=== PATIENT | male | born 1940 | race Caucasian/White ===

== ENCOUNTER 2017-10-13 17:54 | Observation (INO) | payer OTHER ==
--- OUTSIDE RECORDS SUMMARY | 2017-10-13 17:55 | XMS REPORT | Clinical Summary ---
:1940 Author Organization [facility] Address [address] [place] [id number] Care Team Providers Name Role Phone Kevin Jones MD Primary Care Provider Allergies Not on File Current Medications Not on file Active Problems Not on file Social History Tobacco Use Types Packs/Day Years Used Date Never Assessed Sex Assigned at Date Recorded Not on file Last Filed Vital Signs Not on file Plan of Treatment Health Maintenance Due Date Last Done Comments SHINGRIX VACCINE (#1) 1990 ZOSTER VACCINE 2000 PNEUMOCOCCAL POLYSACCHARIDE VACCINE AGE 65 AND OVER 2005 PNEUMOCOCCAL-13 2005 INFLUENZA VACCINE 10/08/2017 Results Not on fileafter 10/12/2016 Insurance Payer Benefit Plan / Group Subscriber ID Type Phone Address AETNA MEDICARE AETNA MEDICARE HMO/PP[facility] xxxxxxxx HMO [phone] [place] [id number]
--- NOTE | 2017-10-13 19:12 | RAD REPORT ---
EXAM DESCRIPTION: RAD - Hip Left 2 View - 10/13/2017 6:52 pm CLINICAL HISTORY: Acute onset left hip pain COMPARISON: Left hip November 2009 FINDINGS: AP and cross-table lateral views were obtained. A bipolar prosthesis is in place. No fracture of the proximal femur or left hemipelvis. There are deg enerative changes partially imaged involving the lumbar spine, SI joints and the pubic symphysis. No dislocation. Subsidence of the femoral component is not suspected. No radiographic evidence for loose thelma. No acute or destructive bony process seen. No soft tissue abnormality. IMPRESSION: Left bipolar prosthesis in place. No acute implant finding seen. [place] femur and left hemipelvis show no acute findings.
[2017-10-13] MEDS ORDERED: HYDROCODONE/APAP 5/325 MG TAB ONE (19:45)
[2017-10-13 20:55] LABS: Hematocrit 35.6 % (39.6-49.0); MCH 30.9 pg (27.0-35.0); MPV 8.7 fL (7.6-11.3); RBC Red Blood Cell Count 3.92 M/uL (4.33-5.43)
--- NOTE | 2017-10-13 21:07 | ER ---
Nurse's Notes [facility] Name: Franklin Castro Age: 77 yrs Sex: Male : 1940 Arrival Date: 10/13/2017 Time: 17:55 Bed 5 Private MD: Diagnosis: Other acute postprocedural pain Presentation: 10/13 17:55 Presenting complaint: Patient states: L hip pain that began suddenly today at 1400. Pt ss reports he had a L hip replacement by Dr. Montes at [facility] on October 01 and has been doing well. Pt had a follow up appointment today with Simon that went well. Transition of care: patient was not received from another setting of care. Onset of symptoms was October 13, 2017. Risk Assessment: Do you want to hurt yourself or someone else? Patient reports no desire to harm self or others. Initial Sepsis Screen: Does the patient meet any 2 criteria? No. Patient's initial sepsis screen is negative. Does the patient have a suspected source of infection? No. Patient's initial sepsis screen is negative. Care prior to arrival: None. 17:55 Method Of Arrival: Wheelchair ss 17:55 Acuity: JIMY 3 ss Historical: - Allergies: 18:07 No Known Allergies; ss - Home Meds: 22:07 aspirin 81 mg Oral TbEC 1 tab once daily [Active]; donepezil 10 mg oral tab 1 tab once ak1 daily [Active]; duloxetine oral 200mg oral 1 cap once daily [Active]; levothyroxine 125 mcg tab 1 tab once daily [Active]; metformin 500 mg Oral Tb24 1 tab once daily [Active]; Xarelto 10 mg oral tab 1 tab once daily [Active]; metoprolol tartrate 50 mg Oral tab 1 tab 2 times per day [Active]; amlodipine-beyslate 5mg 1 tab twice a day [Active]; Tylenol #3 Oral every 4 hours for Pain [Active]; - PMHx: 19:19 Diabetes - NIDDM; Hypothyroidism; Dementia; Hypertension; sg 22:07 throat cancer; ak1 - PSHx: 22:07 Hernia repair; Tonsillectomy; left hip replacement; Vasectomy; ak1 - Immunization history:: Adult Immunizations up to date. - Social history:: Smoking status: Patient/guardian denies using tobacco. - Ebola Screening: : Patient denies exposure to infectious person Patient denies travel to an Ebola-affected area in the 21 days before illness onset. Screenin:30 Abuse screen: Denies threats or abuse. Denies injuries from another. Nutritional hb screening: No deficits noted. Tuberculosis screening: No symptoms or risk factors identified. Fall Risk None identified. Assessment: 18:30 General: Appears in no apparent distress. Behavior is calm. Pain: Pain currently is 6 hb out of 10 on a pain scale. Neuro: Level of Consciousness is awake, alert, obeys commands, Oriented to person, place, time, situation. Cardiovascular: Capillary refill < 3 seconds Patient's skin is warm and dry. Respiratory: Airway is patent Trachea midline Respiratory effort is even, unlabored, Respiratory pattern is regular, symmetrical, Breath sounds are clear bilaterally. GI: No signs and/or symptoms were reported involving the gastrointestinal system. : No signs and/or symptoms were reported regarding the genitourinary system. EENT: No signs and/or symptoms were reported regarding the EENT system. Derm: No signs and/or symptoms reported regarding the dermatologic system. Skin is intact, is healthy with good turgor. Musculoskeletal: Reports pain in left hip. 19:42 Reassessment: Patient appears in no apparent distress at this time. pt able to stand ak1 and bear weight, take 2 to 3 steps assisted due to no walker to use to ambulate. pt c/o of pain 4 out of 10. ERP notifed. 21:38 Reassessment: Patient and/or family updated on plan of care and expected duration. Pain ak1 level reassessed. Patient is alert, oriented x 3, equal unlabored respirations, skin warm/dry/pink. pt continues to c/o left hip pain. pt and family informed of admission status. . 22:01 Reassessment: ERP notified and agreed pt could take his home night time medications. pt ak1 took Donepezil 10mg, Metoprolol Tardate 50mg and Amlodipine Beyslate 5mg at 2200.. Vital Signs: 18:01 BP 153 / 71; Pulse 83; Resp 16; Pulse Ox 97% on R/A; hb 18:07 Temp 98.4(O); Weight 99.79 kg; Height 5 ft. 9 in. (175.26 cm); Pain 4/10; ss 19:00 BP 126 / 69; Pulse 78; Resp 16; Pulse Ox 100% on R/A; hb 20:48 BP 143 / 71; Pulse 78; Resp 12; Pulse Ox 97% ; ao 21:39 BP 142 / 72; Pulse 75; Resp 16; Temp 98.4; Pulse Ox 97% on R/A; Pain 3/10; ak1 18:07 Body Mass Index 32.49 (99.79 kg, 175.26 cm) ED Course: 17:55 Patient arrived in ED. ss 18:05 Triage completed. 18:05 Ricahrd Velasquez MD is Attending Physician. 18:07 Arm band placed on right wrist. ss 18:50 Hip Left 2 View XRAY In Process Unspecified. EDMS 19:05 Patient has correct armband on for positive identification. Bed in low position. Call hb light in reach. Side rails up X 1. 19:32 Kiara Hahn, RN is Primary Nurse. ak1 19:43 No provider procedures requiring assistance completed. Patient admitted, IV remains in ak1 place. 20:43 Inserted saline lock: 22 gauge in left forearm, using aseptic technique. Blood ao collected. 20:46 CT Pelvis wo Cont In Process Unspecified. EDMS 21:01 Zuly Jones MD is Hospitalizing Provider. Administered Medications: 19:41 Drug: [place] 5 mg-325 mg 1 tabs Route: PO; ak1 20:32 Follow up: Response: No adverse reaction ak1 21:00 Follow up: Response: No adverse reaction; Pain is decreased ak1 Outcome: 21:07 Decision to Hospitalize by Provider. 21:44 Condition: stable ak1 21:44 Instructed on the need for admit. 22:15 Admitted to Med/surg accompanied by tech, via stretcher, room 214, with chart, Report ak1 called to nurse Lizette for 214 22:34 Patient left the ED. ak1 Signatures: Dispatcher [employer] EDKS Behzad Martines, RN MORRIS Aleisha Rodriguez RN RN Kiara Hahn, RN MORRIS ak Asim Mcconnell RN RN ao Baxter, Heather, RN RN Richard Velasquez MD MD Corrections: (The following items were deleted from the chart) 21:41 19:43 Patient did not have IV access during this emergency room visit. ak1 ak1
--- NOTE | 2017-10-13 21:07 | EDPHYS ---
Physician Documentation [facility] Name: Franklin Castro Age: 77 yrs Sex: Male : 1940 Arrival Date: 10/13/2017 Time: 17:55 Bed 5 Private MD: ED Physician Richard Velasquez HPI: 10/13 21:16 This 77 yrs old Male presents to ER via Wheelchair with complaints of Hip gs Pain. 21:16 The patient or guardian reports pain. had just left post op visit at [facility], got into his car had sudden pain in left hip. Onset: The symptoms/episode began/occurred acutely, just prior to arrival. Modifying factors: the symptoms are aggravated by any movement. Associated signs and symptoms: Pertinent negatives: abdominal pain, incontinence, weakness. Severity of symptoms: At their worst the symptoms were severe, in the emergency department the symptoms are unchanged. The patient has experienced similar episodes in the past, a few times. Historical: - Allergies: 18:07 No Known Allergies; ss - Home Meds: 22:07 aspirin 81 mg Oral TbEC 1 tab once daily [Active]; donepezil 10 mg oral tab 1 tab once ak1 daily [Active]; duloxetine oral 200mg oral 1 cap once daily [Active]; levothyroxine 125 mcg tab 1 tab once daily [Active]; metformin 500 mg Oral Tb24 1 tab once daily [Active]; Xarelto 10 mg oral tab 1 tab once daily [Active]; metoprolol tartrate 50 mg Oral tab 1 tab 2 times per day [Active]; amlodipine-beyslate 5mg 1 tab twice a day [Active]; Tylenol #3 Oral every 4 hours for Pain [Active]; - PMHx: 19:19 Diabetes - NIDDM; Hypothyroidism; Dementia; Hypertension; sg 22:07 throat cancer; ak1 - PSHx: 22:07 Hernia repair; Tonsillectomy; left hip replacement; Vasectomy; ak1 - Immunization history:: Adult Immunizations up to date. - Social history:: Smoking status: Patient/guardian denies using tobacco. - Ebola Screening: : Patient denies exposure to infectious person Patient denies travel to an Ebola-affected area in the 21 days before illness onset. ROS: 21:16 All other systems are negative. gs Exam: 21:16 Cardiovascular: Regular rate and rhythm with a normal S1 and S2. No gallops, murmurs, gs or rubs. Normal PMI, no JVD. No pulse deficits. Respiratory: Lungs have equal breath sounds bilaterally, clear to auscultation and percussion. No rales, rhonchi or wheezes noted. No increased work of breathing, no retractions or nasal flaring. Abdomen/GI: Soft, non-tender, with normal bowel sounds. No distension or tympany. No guarding or rebound. No evidence of tenderness throughout. Back: No spinal tenderness. No costovertebral tenderness. Full range of motion. Neuro: Awake and alert, GCS 15, oriented to person, place, time, and situation. Cranial nerves II-XII grossly intact. Motor strength 5/5 in all extremities. Sensory grossly intact. Cerebellar exam normal. Normal gait. 21:16 Constitutional: The patient appears alert, awake. 21:16 Musculoskeletal/extremity: Extremities: noted in the left hip: ecchymosis, tenderness, Joints: the left hip displays painful range of motion, tenderness. Vital Signs: 18:01 BP 153 / 71; Pulse 83; Resp 16; Pulse Ox 97% on R/A; hb 18:07 Temp 98.4(O); Weight 99.79 kg; Height 5 ft. 9 in. (175.26 cm); Pain 4/10; ss 19:00 BP 126 / 69; Pulse 78; Resp 16; Pulse Ox 100% on R/A; hb 20:48 BP 143 / 71; Pulse 78; Resp 12; Pulse Ox 97% ; ao 21:39 BP 142 / 72; Pulse 75; Resp 16; Temp 98.4; Pulse Ox 97% on R/A; Pain 3/10; ak1 18:07 Body Mass Index 32.49 (99.79 kg, 175.26 cm) ss MDM: 18:33 Patient medically screened. gs 21:16 Differential diagnosis: hip fracture, pelvic fx, dislocation, hematoma sprain. Data reviewed: vital signs, nurses notes. Response to treatment: the patient's symptoms have mildly improved after treatment, and as a result, I will admit patient. Physician consultation: Behzad Montes MD would like admission per Dr. Zuly Jones MD. 10/13 20:28 Order name: CBC w/o diff; Complete Time: 21:00 10/13 21:33 Order name: CBC with Automated Diff EDMS 10/13 18:34 Order name: Hip Left 2 View XRAY; Complete Time: 19:19 10/13 20:28 Order name: CT Pelvis wo Cont; Complete Time: 21:22 10/13 21:33 Order name: CBC with Automated Diff EDMS 10/13 21:33 Order name: CONS Physician Consult EDMS 10/13 21:33 Order name: Clear Liquid EDMS Administered Medications: 19:41 Drug: [place] 5 mg-325 mg 1 tabs Route: PO; ak1 20:32 Follow up: Response: No adverse reaction ak1 21:00 Follow up: Response: No adverse reaction; Pain is decreased ak1 Disposition: 10/13/17 21:07 Hospitalization ordered by Zuly Jones for Observation. Preliminary diagnosis is Other acute postprocedural pain. - Bed requested for Telemetry/MedSurg (observation). - Status is Observation. ak1 - Condition is Stable. - Problem is new. - Symptoms have improved. UTI on Admission? No Signatures: Dispatcher [employer] EDOK Behzad Martines RN RN Aleisha Rodriguez RN RN ss Krenek, Amber, RN RN ak1 Richard Velasquez MD MD Shmuel Felipe mw2 Corrections: (The following items were deleted from the chart) 21:57 21:07 Hospitalization Ordered by A Karen QUEEN for Observation. Preliminary diagnosis is mw2 Other acute postprocedural pain. Bed requested for Telemetry/MedSurg (observation). Status is Observation. Condition is Stable. Problem is new. Symptoms have improved. UTI on Admission? No. gs 22:34 21:57 10/13/2017 21:07 Hospitalization Ordered by A Karen QUEEN for Observation. ak1 Preliminary diagnosis is Other acute postprocedural pain. Bed requested for Telemetry/MedSurg (observation). Status is Observation. Condition is Stable. Problem is new. Symptoms have improved. UTI on Admission? No. mw2
--- NOTE | 2017-10-13 21:19 | RAD REPORT ---
EXAM DESCRIPTION: CT - Pelvis Wo Cont - 10/13/2017 8:46 pm CLINICAL HISTORY: Acute onset left hip pain COMPARISON: Left hip films same date TECHNIQUE: Axial 2 millimeter thick images of the pelvis were obtained. Sagittal and coronal reforma tted images were generated and reviewed. FINDINGS: Left bipolar prosthesis is in place. There is no dislocation of the femoral component. No subsidence of the femoral component. Loosening is not suspected. There are numerous subcortical degen erative cystic changes seen along the superior and medial aspect of the acetabulum. No fracture of th e pelvis. No pathologic bone process. Proximal left femur is intact. Patient has significant lower lumbar degenerative change primarily in the facet joints. No pathologic bone process. Approximately 8 centimeter soft tissue mass is present isodense to the skeletal musculature. This is along the posterior margin of the proximal femur. There is contusion and edema change in the lateral subcutaneous fatty tissues including a focal centimeter mass of similar density to the larger mass. T here is some congestion and edema of the gluteus musculature. No air or foreign body. Moderate-size right inguinal hernia. IMPRESSION: Large 8 centimeter diameter hematoma posterior to the left femur. There is additional co ntusion and edema change in the subcutaneous fatty tissues posterior and lateral to the hip joint and proximal femur. No dislocation of the femoral component. No fracture or acute bone process of the pelvis or proximal femur. Prominent underlying degenerative change at both hip joints.
[2017-10-13] MEDS ORDERED: HYDROCODONE/APAP 5/325 MG TAB PO PRN (21:31)
[2017-10-13] MEDS ORDERED: ACETAMINOPHEN 500 MG TAB PO PRN (21:31)
[2017-10-13] MEDS: NA CHLORIDE 0.9% 1,000 ML IV SCH (22:52)
[2017-10-14 00:23] VITALS: BMI 32.6
[2017-10-14 04:52] LABS: Urine Appearance CLEAR; Urine Bilirubin NEGATIVE (NEG); Urine Blood NEGATIVE (NEG); Urine Color YELLOW; Urine Glucose NEGATIVE (NEG); Urine Protein NEGATIVE (NEG)
[2017-10-14 04:52] LABS: Absolute Lymphocytes (CBC) 1.7 K/uL (0.7-4.9); Absolute Monocytes 0.7 K/uL (0.1-1.3); Absolute Neutrophil 6.7 K/uL (1.8-8.0); Basophils % 1.5 % (0-1.3); Eosinophils % 2.8 % (0-4.4); Lymphocytes % 17.8 % (15.3-44.8); MCH 31.7 pg (27.0-35.0); MCV 91.4 fL (80-100); MPV 9.4 fL (7.6-11.3); Monocytes % 7.7 % (3.3-12.3); RBC Red Blood Cell Count 3.61 M/uL (4.33-5.43)
[2017-10-14 05:41] LABS: Urine Microscopic Reflex NO UMIC
[2017-10-14 07:08] LABS: ALT/SGPT 17 U/L (12-78); AST/SGOT 17 U/L (15-37); Albumin 2.5 g/dL (3.4-5.0); Alkaline Phosphatase 91 U/L (45-117); BUN Blood Urea Nitrogen 10 mg/dL (7-18); Bicarbonate 30 mmol/L (21-32); Bilirubin Total 0.6 mg/dL (0.2-1.0); Glucose Level 110 mg/dL (74-106); Magnesium 2.1 mg/dL (1.8-2.4); Potassium 4.1 mmol/L (3.5-5.1); Protein, Total 6.3 g/dL (6.4-8.2); Sodium Level 139 mmol/L (136-145)
[2017-10-14] MEDS: NA CHLORIDE 0.9% 1,000 ML IV SCH ×2 (08:53→18:00)
[2017-10-14] MEDS ORDERED: AMLODIPINE BESYLATE 5 MG PO SCH (09:00)
[2017-10-14] MEDS ORDERED: DULOXETINE HCL 20 MG PO SCH (09:00)
[2017-10-14] MEDS ORDERED: LEVOTHYROXINE 125 MCG PO SCH (09:00)
[2017-10-14] MEDS ORDERED: HOME MED 1 EA UNK (Metoprolol Tartrate [Lopressor*] 50 MG) PO SCH (09:00)
[2017-10-14] MEDS ORDERED: DONEPEZIL 10 MG PO SCH (09:00)
[2017-10-14 17:00] VITALS: BP 127/58; TEMP 99.1
[2017-10-14 18:03] VITALS: O2SAT 93
--- NOTE | 2017-10-15 02:01 | HP ---
Date of Admission: 10/13/2017 Chief Complaint: Left hip pain. History Of Present Illness: This is a 77-year-old male patient came into emergency room yesterday tara escudero with complaints of left hip pain. He had left hip replacement surgery done by Dr. Simon rangel out 2 weeks ago, and after surgery, he was started on DVT prophylaxis with Xarelto. He has been taki ng all of his medications regularly and yesterday he had appointment to follow up with Dr. Montes at his office and he did not have any complaints. He finished his appointment, and as he was getting in the car, he tried to sit down and at that time, he started to have some pain in his left thigh. Once he sat down in the car, he felt better, went home, and as he was trying to get out of the car an d ambulate, his pain was lot worse, so later on he came into emergency room. After he was evaluated in the ER, ER physician contacted me, informed me, requesting admission to the hospital because the p atient was having intense pain and had trouble ambulating. There was no fall and no injury. X-ray o f the left hip was negative for any acute changes. No fracture, no dislocation. CAT scan of the hip had shown some hematoma around the left hip area. Overnight, the patient's condition has remained s table. This morning when I saw him, his was present with him at bedside. Denies any fever or c hills. Allergies: NO KNOWN ALLERGIES. Medications: List reviewed. Review of Systems: Musculoskeletal: As mentioned above all other systems reviewed and negative. Social History: Negative for smoking or alcohol use. Family History: Not pertinent. Past Surgical History: Left hip replacement surgery done about 2 weeks ago. Past Medical History: Significant for osteoarthritis, Alzheimer disease, hypertension, hyperlipidemi a, hypothyroidism. Physical Examination: Vital Signs: Temperature 98.1, pulse 68, respiratory rate 18, blood pressure 139/57, oxygen saturati on 94%. Height 5 feet 9 inches, weight 221 pounds. General: Awake, alert, oriented, not in distress. HEENT: Head atraumatic, normocephalic. Conjunctivae nonerythematous. Sclerae white. Mouth, no thr ush or edema noted. Ears/Nose, no mass, lesion, discharge noted. Neck: Supple. No JVD, lymph nodes, bruit, thyromegaly noted. Lungs: Bilateral good equal air entry. Clear to auscultation. No rhonchi. No rales. Heart: Normal heart sounds, no murmur or gallop. Abdomen: Soft, bowel sounds normal. No guarding, rigidity, tenderness, mass, hepatosplenomegaly, dis tention, or bruit noted. Extremities: Left lateral thigh has a surgical scar. Some soft tissue swelling of the left lateral thigh with bruising of the left lateral thigh area from recent surgery. No evidence of any celluliti s and no evidence of any discharge or bleeding. Skin: No rash, ulcer, cellulitis. Lymphatics: No lymph node enlargement in neck, supraclavicular, infraclavicular region. Neuro: No focal neurological deficit. Chest: Unremarkable. External Genitalia: Deferred. Rectal: Deferred. Laboratory Data: Yesterday white count 11.3, hemoglobin 12.1, platelets 321. Today white count 9.5, hemoglobin 11.5, platelets 352. Sodium 139, potassium 4.1, chloride 105, bicarb 30, BUN 10, creatin ine 0.80, glucose 110. Liver function tests unremarkable. TSH 1.69. Urinalysis negative. Imaging: X-ray of the left hip; no acute changes, no fracture, no dislocation. CAT scan of the left hip and pelvis shows a large 8 cm hematoma posterior to the left femur and there is additional contu graciela and edema change in the subcutaneous fatty tissue posterior and lateral to hip joint and proxima l femur, no dislocation, no fracture. Hospital Course: After I saw him, Dr. Montes from Orthopedic Surgery evaluated the patient and he called and the details were discussed with him. His recommendation is to have the patient ambulate as he tolerates. No reason for any restricted ambulation and he also has recommended for us to stacey nue his Xarelto that he takes for DVT prophylaxis. If the patient's hematoma and bleeding problem ge ts worse, obviously Dr. Montes will have to consider surgical intervention for evacuation of that hematoma as he has informed me, but it is not unusual to expect this kind of hematoma. We do not kno w when this hematoma developed, whether it started yesterday or it was there before and became painfu l yesterday for some reason, but in any case at this point as per his recommendation, we will continu erika Segal. The patient is starting ambulating well with the walker and medically he is stable for elaine sena. Dr. Montes, when I talked to him, he was okay for the patient to go home whenever I was okay, and we will see him for followup next week at my office and the patient to follow up with Dr. Erika mejia per his advice and recommendation. The patient to continue all his prior home medication. Final Diagnoses: 1.Hematoma, left hip/thigh. 2.Hypertension. 3.Hyperlipidemia. 4.Hypothyroidism. 5.Osteoarthritis, multiple sites. 6.Alzheimer disease. NIKI/MODL Voice ID: [id number]
[2017-10-15] MEDS ORDERED: RIVAROXABAN 10 MG TABLET PO SCH (09:00)
--- NOTE | 2017-10-15 09:19 | CON ---
Date of Consultation: 10/14/2017 History Of Present Illness: I have seen this patient in the past, likely yesterday in the clinic. Ye sterday in the clinic, he was doing well and he was able to ambulate with a rolling walker. Complain ts of pain, were essentially minimal. His incision was clean, dry, and intact. Fay were removed . He was placed in Steri-Strips. The patient states that as he was getting into the car, he placed his affected leg in the car without difficulty; however, as he was raising his right lower extremity, he felt some pain in the left side. He says that the pain was quite significant when it occurred, b ut it did pass more or less until he returned to his home. When he returned to his home and got out, he had some pain and went into his home, started developing greater and greater amounts of pain. He therefore went to the Emergency Department where CBC was done, which demonstrates a hemoglobin of 12 .1, hematocrit of 35.6, white blood cell count of 11.3. X-rays were taken of his hip, which demonstr ated what appeared to be a well-fixed, well-positioned hemiarthroplasty. CT scan was done, which als o demonstrates a well-fixed, well-positioned hemiarthroplasty, also with a small hematoma along the p osterior aspect of his femur. Physical Examination: His incision still is clean, dry, and intact. He does have some bruising. There is some fullness, w hich we would expect 2 weeks after surgery. Gentle motion of his hip does not cause pain. He has no t yet been up today. Assessment: In assessment, he is a 77-year-old male who is 2 weeks status post total hip arthroplast y, was doing quite well; however, when he was trying to get into the car, he sustained an injury to h is hip. Radiographically, the hip appears to be normal. This is most likely related to soft tissue injury or perhaps could be related to his spine; however, today he is doing much better. We will see how he does with physical therapy. I think he can be weightbearing as tolerated. Discha rge would be dependent on functional level. /ALFRED Voice ID: [id number] Report ID: [id number]
== END 2017-10-14 19:03 | disposition home or self-care (01) ==
LOC: ER 17:54 → ERHOLD 21:30 → 2ND 22:15
PROVIDERS: ADMIT Internal Medicine; ATTEND Internal Medicine
DX: T84.89XA Other specified complication of internal orthopedic prosthetic devices, implants and grafts, initial encounter (principal); G30.9 Alzheimer's disease, unspecified; F02.80 Dementia in other diseases classified elsewhere, unspecified severity, without behavioral disturbance, psychotic disturbance, mood disturbance, and anxiety; E11.9 Type 2 diabetes mellitus without complications; I10 Essential (primary) hypertension; E78.5 Hyperlipidemia, unspecified; E03.9 Hypothyroidism, unspecified; Y83.1 Surgical operation with implant of artificial internal device as the cause of abnormal reaction of the patient, or of later complication, without mention of misadventure at the time of the procedure; Y92.009 Unspecified place in unspecified non-institutional (private) residence as the place of occurrence of the external cause; M15.9 Polyosteoarthritis, unspecified; Z79.01 Long term (current) use of anticoagulants; Z79.84 Long term (current) use of oral hypoglycemic drugs; Z79.82 Long term (current) use of aspirin
CPT/HCPCS: 36415; 72192; 73502; 80053; 81003; 83735; 84443; 85025; 85027; 99285; J7030 ×2; G0378

== ENCOUNTER 2018-05-25 08:46 | Inpatient (IN) | payer OTHER ==
--- OUTSIDE RECORDS SUMMARY | 2018-05-25 08:48 | XMS REPORT | Clinical Summary ---
:1940 Author Organization [facility] Address [address] [place] [address] Care Team Providers Name Role Phone Kevin Jones MD Primary Care Provider Allergies Not on File Medications Not on file Active Problems Not on file Social History Tobacco Use Types Packs/Day Years Used Date Never Assessed Sex Assigned at Date Recorded Not on file Job Start Date Occupation Industry Not on file Not on file Not on file Travel History Travel Start Travel End No recent travel history available. Last Filed Vital Signs Not on file Plan of Treatment Health Maintenance Due Date Last Done Comments SHINGLES VACCINES (#1) 1990 65+ PNEUMOCOCCAL VACCINE (1 of 2 - PCV13) 2005 PNEUMOCOCCAL POLYSACCHARIDE VACCINE AGE 65 AND OVER 2005 INFLUENZA VACCINE 10/08/2017 Results Not on fileafter 05/24/2017 Insurance Payer Benefit Plan / Group Subscriber ID Type Phone Address AETNA MEDICARE AETNA MEDICARE HMO/PPO [facility] xxxxxxxx HMO [address] (Home) [place] [id number] Advance Directives Patient has advance care planning documents on file. For more information, please contact:[facility] [place] [address]
[2018-05-25 09:36] LABS: Absolute Lymphocytes (CBC) 1.9 K/uL (0.7-4.9); Absolute Monocytes 0.7 K/uL (0.1-1.3); Absolute Neutrophil 8.1 K/uL (1.8-8.0); Basophils % 0.1 % (0-1.3); Eosinophils % 2.4 % (0-4.4); Lymphocytes % 16.9 % (15.3-44.8); MPV 9.2 fL (7.6-11.3); Monocytes % 6.8 % (3.3-12.3); RBC Red Blood Cell Count 5.23 M/uL (4.33-5.43)
--- NOTE | 2018-05-25 09:46 | RAD REPORT ---
EXAM DESCRIPTION: Gwen Single View05/25/2018 9:31 am CLINICAL HISTORY: Chest pain COMPARISON: none FINDINGS: The lungs appear clear of acute infiltrate. The heart is borderline enlarged IMPRESSION: No acute abnormalities displayed
[2018-05-25 09:50] LABS: Protime INR 1.11
[2018-05-25 10:02] LABS: ALT/SGPT 22 U/L (12-78); AST/SGOT 17 U/L (15-37); Albumin 3.6 g/dL (3.4-5.0); Alkaline Phosphatase 138 U/L (45-117); BUN Blood Urea Nitrogen 18 mg/dL (7-18); Bicarbonate 26 mmol/L (21-32); Bilirubin Direct 0.1 mg/dL (0-0.2); Bilirubin Total 0.8 mg/dL (0.2-1.0); Glucose Level 143 mg/dL (74-106); NT PRO-BNP 5185 pg/mL (<450); Potassium 4.1 mmol/L (3.5-5.1); Protein, Total 8.4 g/dL (6.4-8.2); Sodium Level 137 mmol/L (136-145); Troponin (Emerg Dept Use Only) < 0.02 ng/mL (0.0-0.045)
[2018-05-25] MEDS ORDERED: NA CHLORIDE 0.9% 500 ML ONE (10:07)
[2018-05-25 10:08] LABS: Thyroid Stimulating Hormone 4.38 uIU/mL (0.360-3.740)
--- NOTE | 2018-05-25 10:20 | ER ---
Nurse's Notes [facility] Name: Franklin Castro Age: 78 yrs Sex: Male : 1940 Arrival Date: 05/25/2018 Time: 08:47 Bed 2 Private MD: Zuly Jones C Diagnosis: Atrial fibrillation and flutter-with RVR Presentation: 05/25 08:58 Presenting complaint: Patient states: "I feel like my heart is skipping beats and like hb I am going to pass out." Also reports chest pain that radiated to back last night while lying in bed. Denies pain/SOB at this time. HR 68-140 in triage. Transition of care: patient was not received from another setting of care. Onset of symptoms was May 24, 2018. Risk Assessment: Do you want to hurt yourself or someone else? Patient reports no desire to harm self or others. Care prior to arrival: None. 08:58 Method Of Arrival: Wheelchair hb 08:58 Acuity: JIMY 2 hb 09:00 Initial Sepsis Screen: Does the patient meet any 2 criteria? HR > 90 bpm. No. Patient's bp initial sepsis screen is negative. Does the patient have a suspected source of infection? No. Patient's initial sepsis screen is negative. Historical: - Allergies: 09:02 No Known Allergies; hb - Home Meds: 09:02 amlodipine-beyslate 5mg 1 tab twice a day [Active]; donepezil 10 mg Oral tab 1 tab once hb daily [Active]; aspirin 81 mg Oral TbEC 1 tab once daily [Active]; duloxetine 200mg Oral 1 cap once daily [Active]; levothyroxine 125 mcg tab 1 tab once daily [Active]; metformin 500 mg Oral Tb24 1 tab once daily [Active]; metoprolol tartrate 50 mg Oral tab 1 tab 2 times per day [Active]; - PMHx: 09:02 Dementia; Diabetes - NIDDM; Hypertension; Hypothyroidism; throat cancer; hb - PSHx: 09:02 Hernia repair; Tonsillectomy; left hip replacement; Vasectomy; hb - Immunization history:: Adult Immunizations up to date. - Social history:: Smoking status: Patient/guardian denies using tobacco. - Ebola Screening: : No symptoms or risks identified at this time. Screenin:22 Abuse screen: Denies threats or abuse. Denies injuries from another. Nutritional bp screening: No deficits noted. Tuberculosis screening: No symptoms or risk factors identified. Fall Risk None identified. Assessment: 09:00 General: Appears in no apparent distress. comfortable, Behavior is calm, cooperative, bp appropriate for age. Pain: Denies pain. Neuro: Level of Consciousness is awake, alert, obeys commands, Oriented to person, place, time, situation, Appropriate for age. Cardiovascular: Rhythm is atrial fibrillation with rapid ventricular response. Respiratory: Airway is patent Respiratory effort is even, unlabored, Respiratory pattern is regular, symmetrical. GI: No signs and/or symptoms were reported involving the gastrointestinal system. : No signs and/or symptoms were reported regarding the genitourinary system. EENT: No deficits noted. Derm: No deficits noted. Musculoskeletal: Circulation, motion, and sensation intact. Range of motion: intact in all extremities. 11:00 Reassessment: PT REMAINS IN AFIB, INTERMITTENT RVR. ADMIT IN PROCESS. bp 13:00 Reassessment: FAMILY AT B/S, ADMIT IN PROCESS, BED ASSIGNMENT PENDING. Reassessment:. bp Vital Signs: 08:59 BP 99 / 69; Pulse 106; Resp 16; Temp 98.2(TE); Pulse Ox 96% on R/A; Weight 99.79 kg; bp Pain 0/10; 09:27 BP 108 / 71; Pulse 107; Resp 20; Pulse Ox 96% ; bp 11:30 BP 108 / 73; Pulse 109; Resp 16; Pulse Ox 93% on R/A; bp 13:30 BP 98 / 64; Pulse 108; Resp 24; Pulse Ox 93% ; bp 15:30 BP 107 / 71; Pulse 99; Resp 14; Pulse Ox 93% ; bp ED Course: 08:47 Patient arrived in ED. as 08:47 Zuly Jones MD is Private Physician. as 08:59 Triage completed. hb 09:02 Cody Sanchez, MORRIS is Primary Nurse. bp 09:02 Arm band placed on. hb 09:05 Josue Reza PA is PHCP. jr8 09:05 Gonzales Brian MD is Attending Physician. jr8 09:15 Inserted saline lock: 20 gauge in left hand, using aseptic technique. Blood collected. bp 09:22 Patient has correct armband on for positive identification. Placed in gown. Bed in low bp position. Call light in reach. Side rails up X2. Adult w/ patient. 09:31 XRAY Chest (1 view) In Process Unspecified. EDMS 09:56 EKG done, by pharmacy technician assistant. reviewed by Gonzales Brina MD. dt2 10:19 Zuly Jones MD is Hospitalizing Provider. jr8 15:38 No provider procedures requiring assistance completed. Patient admitted, IV remains in bp place. Administered Medications: 10:00 Drug: NS 0.9% 500 ml Route: IV; Rate: bolus; Site: left hand; bp 10:40 Follow up: IV Status: Completed infusion; IV Intake: 500ml bp 10:20 Drug: Lovenox 1 mg/kg Route: Sub-Q; Site: right lower abdomen; bp 16:05 Follow up: Response: No adverse reaction bp Intake: 10:40 IV: 500ml; Total: 500ml. bp Outcome: 10:19 Decision to Hospitalize by Provider. jr8 16:23 Patient left the ED. bp Signatures: Dispatcher [employer] EDMS Lulu Gibbons Josh, PA PA jr8 Shira Locke, RN RN hb Cody Sanchez, RN RN bp Marija Flores dt2 Corrections: (The following items were deleted from the chart) 09:00 08:58 Presenting complaint: Patient states: "I feel like my heart is skipping beats and hb like I am going to pass out." hb 09:00 08:58 Acuity: JIMY 3 hb hb 09:31 09:27 BP 190 / 81; Pulse 65bpm; Resp 14bpm; Pulse Ox 99%; bp bp 10:20 08:59 BP 99 / 69; Pulse 106bpm; Resp 16bpm; Pulse Ox 96% RA; Temp 98.2F Temporal; Pain bp 0/10; hb
--- NOTE | 2018-05-25 10:20 | EDPHYS ---
Physician Documentation [facility] Name: Franklin Castro Age: 78 yrs Sex: Male : 1940 Arrival Date: 05/25/2018 Time: 08:47 Bed 2 Private MD: Zuly Jones C ED Physician Gonzales Brian HPI: 05/25 09:36 This 78 yrs old Male presents to ER via Wheelchair with complaints of jr8 Palpitations. 09:36 The patient presents with a history of irregular heart beat, heart racing. Context: The jr8 symptoms occur at rest. Onset: The symptoms/episode began/occurred acutely, 3 day(s) ago. Duration: The patient or guardian reports multiple episodes. Modifying factors: The symptoms are aggravated by light activity, lying down. Associated signs and symptoms: Pertinent positives: SOB. Severity of symptoms: At their worst the symptoms were moderate in the emergency department the symptoms are unchanged. The patient has experienced a previous episode. The patient has not recently seen a physician. History of atrial fib several years ago. Was taken out of it by cardioversion. Stated that on Friday started to feel palpitations, SOB, FOY, and orthopnea. Symptoms getting worse and feel like what he had in past . Historical: - Allergies: 09:02 No Known Allergies; hb - Home Meds: 09:02 amlodipine-beyslate 5mg 1 tab twice a day [Active]; donepezil 10 mg Oral tab 1 tab once hb daily [Active]; aspirin 81 mg Oral TbEC 1 tab once daily [Active]; duloxetine 200mg Oral 1 cap once daily [Active]; levothyroxine 125 mcg tab 1 tab once daily [Active]; metformin 500 mg Oral Tb24 1 tab once daily [Active]; metoprolol tartrate 50 mg Oral tab 1 tab 2 times per day [Active]; - PMHx: 09:02 Dementia; Diabetes - NIDDM; Hypertension; Hypothyroidism; throat cancer; hb - PSHx: 09:02 Hernia repair; Tonsillectomy; left hip replacement; Vasectomy; hb - Immunization history:: Adult Immunizations up to date. - Social history:: Smoking status: Patient/guardian denies using tobacco. - Ebola Screening: : No symptoms or risks identified at this time. ROS: 09:36 Eyes: Negative for injury, pain, redness, and discharge, ENT: Negative for injury, jr8 pain, and discharge, Neck: Negative for injury, pain, and swelling, Abdomen/GI: Negative for abdominal pain, nausea, vomiting, diarrhea, and constipation, Back: Negative for injury and pain, MS/Extremity: Negative for injury and deformity, Skin: Negative for injury, rash, and discoloration, Neuro: Negative for headache, weakness, numbness, tingling, and seizure. 09:36 Cardiovascular: Positive for orthopnea, palpitations, Negative for chest pain, edema. 09:36 Respiratory: Positive for dyspnea on exertion, orthopnea, shortness of breath. Exam: 09:36 Eyes: Pupils equal round and reactive to light, extra-ocular motions intact. Lids and jr8 lashes normal. Conjunctiva and sclera are non-icteric and not injected. Cornea within normal limits. Periorbital areas with no swelling, redness, or edema. ENT: Nares patent. No nasal discharge, no septal abnormalities noted. Tympanic membranes are normal and external auditory canals are clear. Oropharynx with no redness, swelling, or masses, exudates, or evidence of obstruction, uvula midline. Mucous membranes moist. Neck: Trachea midline, no thyromegaly or masses palpated, and no cervical lymphadenopathy. Supple, full range of motion without nuchal rigidity, or vertebral point tenderness. No Meningismus. Respiratory: Lungs have equal breath sounds bilaterally, clear to auscultation and percussion. No rales, rhonchi or wheezes noted. No increased work of breathing, no retractions or nasal flaring. Abdomen/GI: Soft, non-tender, with normal bowel sounds. No distension or tympany. No guarding or rebound. No evidence of tenderness throughout. Back: No spinal tenderness. No costovertebral tenderness. Full range of motion. Skin: Warm, dry with normal turgor. Normal color with no rashes, no lesions, and no evidence of cellulitis. MS/ Extremity: Pulses equal, no cyanosis. Neurovascular intact. Full, normal range of motion. Neuro: Awake and alert, GCS 15, oriented to person, place, time, and situation. Cranial nerves II-XII grossly intact. Motor strength 5/5 in all extremities. Sensory grossly intact. Cerebellar exam normal. Normal gait. 09:36 Cardiovascular: Rate: tachycardic, Rhythm: irregularly irregular, Pulses: Pulses are 2+ in right radial artery and left radial artery. Heart sounds: normal, normal S1and S2, no S3 or S4, no murmur, no rub, no gallop, Edema: is not appreciated, JVD: is not appreciated. Vital Signs: 08:59 BP 99 / 69; Pulse 106; Resp 16; Temp 98.2(TE); Pulse Ox 96% on R/A; Weight 99.79 kg; bp Pain 0/10; 09:27 BP 108 / 71; Pulse 107; Resp 20; Pulse Ox 96% ; bp 11:30 BP 108 / 73; Pulse 109; Resp 16; Pulse Ox 93% on R/A; bp 13:30 BP 98 / 64; Pulse 108; Resp 24; Pulse Ox 93% ; bp 15:30 BP 107 / 71; Pulse 99; Resp 14; Pulse Ox 93% ; bp MDM: 09:13 Patient medically screened. jr8 10:18 Data reviewed: vital signs, nurses notes, lab test result(s), EKG, radiologic studies, jr8 plain films. Data interpreted: Pulse oximetry: on room air is 96 %. Interpretation: normal. Counseling: I had a detailed discussion with the patient and/or guardian regarding: the historical points, exam findings, and any diagnostic results supporting the discharge/admit diagnosis, lab results, radiology results, the need for further work-up and treatment in the hospital. Physician consultation: A Karen QUEEN was called at 10:18, was contacted at 10:18, regarding admission, to the telemetry unit. consult, patient's condition, and will see patient. 10:28 ED course: Spoke with Dr. Rose. Wants patient started on betapace and to hold jr8 metoprolol . 05/25 09:10 Order name: Basic Metabolic Panel bp 05/25 09:10 Order name: CBC with Diff; Complete Time: 10:28 bp 05/25 09:10 Order name: LFT's bp 05/25 09:10 Order name: Magnesium; Complete Time: 10:06 bp 05/25 09:10 Order name: NT PRO-BNP; Complete Time: 10:06 bp 05/25 09:10 Order name: PT-INR; Complete Time: 10:06 bp 05/25 09:10 Order name: Troponin (emerg Dept Use Only); Complete Time: 10:06 bp 05/25 09:10 Order name: XRAY Chest (1 view); Complete Time: 09:53 bp 05/25 09:11 Order name: Basic Metabolic Panel; Complete Time: 10:06 [facility] 05/25 09:11 Order name: Liver (Hepatic) Function; Complete Time: 10:06 [facility] 05/25 09:13 Order name: TSH; Complete Time: 10:13 [facility] 05/25 09:13 Order name: T4 Free; Complete Time: 10:13 [facility] 05/25 09:44 Order name: Manual Differential; Complete Time: 10:28 EDMS 05/25 09:10 Order name: EKG; Complete Time: 09:12 bp 05/25 09:10 Order name: Cardiac monitoring; Complete Time: 09:19 bp 05/25 09:10 Order name: EKG - Nurse/Tech; Complete Time: 09:19 bp 05/25 09:10 Order name: IV Saline Lock; Complete Time: 09:19 bp 05/25 09:10 Order name: Labs collected and sent; Complete Time: 09:19 bp 05/25 09:10 Order name: O2 Per Protocol; Complete Time: 09:20 bp 05/25 09:10 Order name: O2 Sat Monitoring; Complete Time: 09:19 bp 05/25 10:23 Order name: CONS Physician Consult [facility] Administered Medications: 10:00 Drug: NS 0.9% 500 ml Route: IV; Rate: bolus; Site: left hand; bp 10:40 Follow up: IV Status: Completed infusion; IV Intake: 500ml bp 10:20 Drug: Lovenox 1 mg/kg Route: Sub-Q; Site: right lower abdomen; bp 16:05 Follow up: Response: No adverse reaction bp Disposition: 05/26 06:52 Co-signature as Attending Physician, Gonzales Brian MD I agree with the assessment and sylvia plan of care. Disposition: 05/25/18 10:19 Hospitalization ordered by Zuly Jones for Inpatient Admission. Preliminary diagnosis is Atrial fibrillation and flutter - with RVR. - Bed requested for Telemetry/MedSurg (Inpatient). - Status is Inpatient Admission. bp - Condition is Stable. - Problem is new. - Symptoms have improved. UTI on Admission? No Signatures: Dispatcher [facility] Romana Montaño RN RN Gonzaels Garcia MD MD cha Roszak, Josh, PA PA jr8 Shira Locke, MORRIS CACERES hb Cody Sanchez RN RN bp Corrections: (The following items were deleted from the chart) 05/25 15:15 10:19 Hospitalization Ordered by A Karen QUEEN for Inpatient Admission. Preliminary dw diagnosis is Atrial fibrillation and flutter - with RVR. Bed requested for Telemetry/MedSurg (Inpatient). Status is Inpatient Admission. Condition is Stable. Problem is new. Symptoms have improved. UTI on Admission? No. jr8 15:52 15:15 05/25/2018 10:19 Hospitalization Ordered by A Karen QUEEN for Inpatient Admission. dw Preliminary diagnosis is Atrial fibrillation and flutter - with RVR. Bed requested for Telemetry/MedSurg (Inpatient). Status is Inpatient Admission. Condition is Stable. Problem is new. Symptoms have improved. UTI on Admission? No. dw 16:23 15:52 05/25/2018 10:19 Hospitalization Ordered by A Karen QUEEN for Inpatient Admission. bp Preliminary diagnosis is Atrial fibrillation and flutter - with RVR. Bed requested for Telemetry/MedSurg (Inpatient). Status is Inpatient Admission. Condition is Stable. Problem is new. Symptoms have improved. UTI on Admission? No. dw
[2018-05-25 10:24] LABS: Blood Morphology Comment NOT SEEN (NOT SEEN); Platelet Estimate ADEQ
[2018-05-25] MEDS ORDERED: ENOXAPARIN 100 MG/ML SYR SQ ONE (10:48)
--- NOTE | 2018-05-25 12:15 | EKG ---
Test Date: 2018-05-25 Test Time: 09:36:42 Tile Layer Helper: MILAN MEASUREMENT RESULTS: Intervals: Rate: 93 SD: QRSD: 90 QT: 344 QTc: 427 [place]: P: SD: QRS: 38 T: 95 INTERPRETIVE STATEMENTS: Atrial fibrillation Nonspecific T wave abnormality, probably digitalis effect Abnormal ECG Compared to ECG 05/08/2016 08:35:19 T-wave abnormality now present Sinus bradycardia no longer present First degree AV block no longer present Electronically Signed On 05-25-18 12:14:34 CDT by Johnny Rose
[2018-05-25] MEDS ORDERED: ONDANSETRON 4 MG/2 ML VIAL IV PRN (16:41)
[2018-05-25] MEDS ORDERED: ACETAMINOPHEN 500 MG TAB PO PRN (16:41)
[2018-05-25 17:23] VITALS: BMI 32.1
[2018-05-25 17:41] LABS: Urine Appearance CLEAR; Urine Bilirubin NEGATIVE (NEG); Urine Blood NEGATIVE (NEG); Urine Color YELLOW; Urine Glucose NEGATIVE (NEG); Urine Protein NEGATIVE (NEG); Urine Urobilinogen 0.2 mg/dL (0.2-1.0); Urine pH 5.5 (5.0-7.0)
[2018-05-25] MEDS: SOTALOL HCL 80 MG TAB PO SCH (17:45)
[2018-05-25 17:55] LABS: Urine Microscopic Reflex NO UMIC
[2018-05-25] MEDS ORDERED: INFLUENZA VACCINE (for 3y+) 0.5 ML DOSE IMVAC ONE (19:00)
[2018-05-25] MEDS: ENOXAPARIN 100 MG/ML SYR SQ SCH (20:52)
--- NOTE | 2018-05-25 21:27 | CON ---
Chief Complaint: Irregular heartbeat. Reason For Cardiology Consult: Atrial fib. History Of Present Illness: Mr. Poole has never had coronary heart disease. He has had AFib. He thinks that was 30 years ago. He was in sinus rhythm when last seen by Dr. Miranda. He began havin g symptoms, but he was not sure what they were at least 4 or 5 days ago, perhaps as long as 2 weeks a go. He asked 911 to evaluate him. They saw him at his house and declined to bring him in. Today, jimenez james brought himself in and was found to be in AFib. Past Medical History: Includes throat cancer, hypothyroidism, hypertension, diabetes, and dementia. He has had hernia repair, tonsillectomy, left hip replacement, vasectomy, and AFib. Medications: Outpatient medications have been amlodipine, donepezil, aspirin, duloxetine, levothyrox ine, metformin, and metoprolol. Allergies: HE HAS NO ALLERGIES. Social History: He uses no tobacco, no alcohol, no illegal drugs. Physical Examination: General: He is alert, oriented, pleasant, obese, not in distress. Vital Signs: Heart rate about 80, irregular. Lungs: Clear. Cardiac: Otherwise normal. No carotid bruit. Extremities: Trace edema. Distal pulses palpable. Imaging Data: His electrocardiogram shows atrial fib, nonspecific T-wave abnormality. He had sinus bradycardia on an EKG here in 2017. His chest x-ray shows no abnormalities. Impression: Mr. Poole has atrial fibrillation for an unknown length of time. We should get him o n long-term anticoagulation. A direct oral anticoagulant could be used and it would be the easiest t gary. His estimated GFR is 61, so dose of Xarelto would be 20 mg once a day. We could begin that to scar and rather than continue to give him metoprolol, we will give him Betapace 80 b.i.d. and see i f that effects a rhythm change. Thank you very much for your kind referral of Zulema. I will follow him with you. ORIN Voice ID: [id number] Report ID: [id number]
[2018-05-25] MEDS: AMLODIPINE 5 MG TAB PO SCH (22:16)
[2018-05-26] MEDS: SOTALOL HCL 80 MG TAB PO SCH ×2 (05:26→17:30)
[2018-05-26] MEDS: LEVOTHYROXINE SOD 0.125 MG TAB PO SCH (05:27)
--- NOTE | 2018-05-26 05:49 | HP ---
Date of Admission: 05/25/2018 Chief Complaint: Feeling tired, and short of breath. History Of Present Illness: This is a 78-year-old male patient, who came into emergency room with 1- week history of worsening tiredness and shortness of breath. For last 3 days, he also noted that his heart is beating irregularly. He had some vague chest tightness type of complaint with this, and so me pain in the mid-back area. He came into emergency room with all these complaints, he was evaluate d, and was found to have atrial fibrillation. This is a new onset atrial fibrillation, and he was ad mitted to the hospital. The patient has received a dose of Lovenox in the emergency room. His initi al blood pressure was low at 98/64, but subsequently blood pressure has come up. He was evaluated by entry writer, who has started him on sotalol. When I saw him this evening, he was lying in bed. Hi s was with him at bedside. No other complaints reported by him. Allergies: THE PATIENT HAS SIDE EFFECTS TO FENOFIBRATE IN FORM OF ABNORMAL LIVER FUNCTION TEST. OTH ERWISE, HE IS NOT ALLERGIC TO ANYTHING. Medications: List reviewed. Review of Systems: Cardiovascular: As mentioned above. All other systems reviewed and negative. 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 Past Surgical History: Hip replacement October 01, 2017. Prior to that, he had hernia repair and tonsi llectomy. Family History: Significant for melanoma, coronary artery disease, hypertension, diabetes mellitus. Social History: Negative for alcohol use. Prior history of smoking, not at present time. Physical Examination: Vital Signs: Initial vital signs, pulse 108, respiratory rate 24, blood pressure 98/64. Last temper ature 98, pulse 99, respiratory rate 24, blood pressure 146/83, oxygen saturation 95%, height 5 feet 9 inches, weight 218 pounds. General: Awake, alert, oriented, not in distress. HEENT: Head atraumatic, normocephalic. Conjunctivae nonerythematous. Sclerae white. Mouth, no thr ush or edema noted. Ears/Nose, no mass, lesion, discharge noted. Neck: Supple. No JVD, lymph nodes, bruit, thyromegaly noted. Lungs: Bilateral good equal air entry. Clear to auscultation. No rhonchi. No rales. Heart: Sounds normal. Heart rhythm is irregularly irregular. Abdomen: Soft, bowel sounds normal. No guarding, rigidity, tenderness, mass, hepatosplenomegaly, dis tention, or bruit noted. Extremities: No leg edema. No calf tenderness. Skin: No rash, ulcer, cellulitis. Lymphatics: No lymph node enlargement in neck, supraclavicular, infraclavicular region. Neuro: No focal neurological deficit. Chest: Unremarkable. External Genitalia: Deferred. Rectal: Deferred. Laboratory Data: Chest x-ray; no acute cardiopulmonary changes. Electrocardiogram; atrial fibrillat ion. White count 11, hemoglobin 16.2, platelets 320. Sodium 137, potassium 4.1, chloride 105, bicar b 26, BUN 18, creatinine 1.16, glucose 143. Liver function tests unremarkable. Troponin less than 0 .02. TSH 4.38, magnesium 2, INR normal. Urinalysis normal. Impression: 1.Atrial fibrillation, paroxysmal, new onset. 2.Hypertension. 3.Mixed hyperlipidemia. 4.Type 2 diabetes mellitus. 5.Post irradiation hypothyroidism. 6.Thyroid cancer. 7.Diverticulosis. 8.Osteoarthritis, multiple sites. Plan: We will go ahead and admit the patient to hospital for further evaluation and management of th is problem. The patient will be admitted to telemetry floor. Cardiology consultation has been obtai hardeep, and the patient is now on sotalol and Lovenox. Home medications will be continued per order. E chocardiogram will be done, and we will follow up on results. I will see him tomorrow for followup. Details and plan of treatment discussed with him. NIKI/MODL Voice ID: [id number]
[2018-05-26 06:51] LABS: Potassium 4.4 mmol/L (3.5-5.1)
[2018-05-26 06:52] LABS: Absolute Lymphocytes (CBC) 1.5 K/uL (0.7-4.9); Absolute Monocytes 0.7 K/uL (0.1-1.3); Absolute Neutrophil 4.4 K/uL (1.8-8.0); Basophils % 1.1 % (0-1.3); Eosinophils % 2.7 % (0-4.4); Lymphocytes % 21.5 % (15.3-44.8); MPV 9.4 fL (7.6-11.3); Monocytes % 9.6 % (3.3-12.3); RBC Red Blood Cell Count 5.13 M/uL (4.33-5.43)
[2018-05-26] MEDS: ENOXAPARIN 100 MG/ML SYR SQ SCH ×2 (09:12→22:07)
[2018-05-26] MEDS: AMLODIPINE 5 MG TAB PO SCH ×2 (09:12→22:07)
[2018-05-26] MEDS: DONEPEZIL HCL 5 MG TAB PO SCH (09:13)
[2018-05-26] MEDS: DULOXETINE 20 MG CAP PO SCH (09:13)
[2018-05-26] MEDS: ASPIRIN EC 81 MG TAB PO SCH (09:13)
[2018-05-26] MEDS: METFORMIN HCL 500 MG TAB PO SCH (09:14)
--- NOTE | 2018-05-26 15:51 | EKG ---
Test Date: 2018-05-26 Test Time: 07:19:28 Automatic Log Cut Off Sawyer: KINSEY MEASUREMENT RESULTS: Intervals: Rate: 123 ME: QRSD: 94 QT: 368 QTc: 526 [place]: P: ME: QRS: 57 T: 131 INTERPRETIVE STATEMENTS: Atrial fibrillation with rapid ventricular response with premature ventricular or aberrantly conducted complexes Septal infarct, age undetermined Abnormal ECG Compared to ECG 05/25/2018 09:36:42 Ventricular premature complex(es) now present Myocardial infarct finding now present T-wave abnormality no longer present Electronically Signed On 05-26-18 15:50:13 CDT by Jhoan Miranda
--- NOTE | 2018-05-27 01:31 | PN ---
Date of Progress Note: 05/26/2018 Subjective: The patient was seen this morning for followup. No new complaints or problems reported by patient. Lying in bed, not in distress. No chest pain or shortness of breath. No nausea, no vom iting. Objective: Vital Signs: Reviewed. HEENT: Examination unremarkable. Lungs: Clear to auscultation. Heart: Sounds normal. Heart rhythm is still irregularly irregular. Abdomen: Soft. Bowel sounds normal. No guarding, rigidity, tenderness, or distention. Extremities: No leg edema. Laboratory Data: White count 6.8, hemoglobin 15.6, platelets . Sodium 140, potassium 4.4, chloride 106, bicarb 28, BUN 16, creatinine 1.14, glucose 128. Impression: 1.Paroxysmal atrial fibrillation. 2.Hypertension. 3.Hypothyroidism. Plan: We will continue current medications. Continue sotalol, Lovenox. I did talk to Dr. Miranda. The patient continues to remain in atrial fibrillation today and Dr. Miranda is planning to do cardi oversion tomorrow. I will see him tomorrow morning for followup. NIKI/MODL Voice ID: [id number] Report ID: [id number]
[2018-05-27] MEDS: SOTALOL HCL 80 MG TAB PO SCH (05:18)
[2018-05-27] MEDS: LEVOTHYROXINE SOD 0.125 MG TAB PO SCH (05:18)
--- NOTE | 2018-05-27 06:08 | PN ---
Mr. Poole is a patient of Dr. Jones, who was admitted on 05/25/2018, and seen by Dr. Rose the for atrial fibrillation. He was started on Xarelto and Betapace. He has received 2 doses of B etapace during the time I saw him, and he continued to be in atrial fibrillation with rate of about 1 10-130. The patient is pretty symptomatic with his atrial fibrillation with palpitation and shortnes s of breath, headaches, and dizziness. We will give him 1 more dose of Betapace this afternoon and i f he continues to be in atrial fibrillation, we will plan a cardioversion in the morning. The patien t understands the risk and the benefits of the procedure and he agreed to proceed. Dr. Jones is aware . GILBERTO/ALFRED Voice ID: [id number] Report ID: [id number]
[2018-05-27] MEDS ORDERED: NA CHLORIDE 0.9% 500 ML ONE (07:46)
[2018-05-27] MEDS ORDERED: MIDAZOLAM HCL 5 MG/5 ML INJ ONE ×2 (08:14→08:24)
[2018-05-27] MEDS: ENOXAPARIN 100 MG/ML SYR SQ SCH (08:27)
[2018-05-27] MEDS ORDERED: MIDAZOLAM HCL 2 MG/2 ML INJ ONE (09:17)
[2018-05-27] MEDS ORDERED: FENTANYL CITR 100 MCG/2 ML ONE (09:17)
[2018-05-27] MEDS ORDERED: ATROPINE SULF 1 MG/10 ML SYR IV ONE (09:17)
[2018-05-27] MEDS ORDERED: NA CHLORIDE 0.9% 0 ML ONE (09:17)
[2018-05-27] MEDS: ASPIRIN EC 81 MG TAB PO SCH (10:31)
[2018-05-27] MEDS: DULOXETINE 20 MG CAP PO SCH (10:31)
[2018-05-27] MEDS: AMLODIPINE 5 MG TAB PO SCH (10:31)
[2018-05-27] MEDS: DONEPEZIL HCL 5 MG TAB PO SCH (10:32)
[2018-05-27] MEDS: METFORMIN HCL 500 MG TAB PO SCH (10:32)
--- NOTE | 2018-05-27 12:20 | EKG ---
Test Date: 2018-05-27 Test Time: 08:27:46 Doctor Chiropractic: KINSEY MEASUREMENT RESULTS: Intervals: Rate: 74 ND: 184 QRSD: 84 QT: 398 QTc: 441 [place]: P: 13 ND: 184 QRS: -3 T: 118 INTERPRETIVE STATEMENTS: Normal sinus rhythm Possible Left atrial enlargement Inferior infarct, age undetermined Abnormal ECG Compared to ECG 05/26/2018 07:19:28 Atrial fibrillation no longer present Ventricular premature complex(es) no longer present Myocardial infarct finding still present Electronically Signed On 05-27-18 12:18:24 CDT by Johnny Rose
[2018-05-27 12:39] VITALS: BP 102/62; TEMP 97.4
[2018-05-27 12:45] VITALS: O2SAT 92
--- NOTE | 2018-05-27 18:29 | OP ---
Surgeon: Johnny Rose MD Procedure: Direct current cardioversion. Indication: Persistent atrial fibrillation. Procedure In Detail: The patient was brought to the cardiac dental laboratory supervisor in a fasting state. Time-out w as held. He had been loaded with Betapace, been on Lovenox shortly after the onset of his atrial fib rillation. Sedated with Versed 7.5 mg used, titrated to an adequate level of sedation. A single mya ck 200 joules was delivered through anterior-posterior paddles, synchronized the QRS complex. Compli cations from the procedure, none. He emerged from this in sinus rhythm. SH/MODL Voice ID: [id number] Report ID: [id number]
--- NOTE | 2018-05-28 06:27 | DS ---
Date of Discharge: 05/27/2018 Disposition: Discharged to go home. Physical Examination: HEENT: Unremarkable. Lungs: Clear to auscultation. Heart: Sounds normal. Abdomen: Soft. Bowel sounds normal. No guarding, rigidity, tenderness, or distention. Extremities: No leg edema. Discharge Medications And Instructions: 1.Continue all prior home medications except discontinue aspirin and discontinue metoprolol. 2.Start sotalol 80 mg twice a day and Xarelto 20 mg daily with supper. 3.Follow up with Dr. Rose in 2 weeks and follow up at my office in 3 weeks. Final Diagnoses: 1.Paroxysmal atrial fibrillation. 2.Hypertension. 3.Hyperlipidemia. 4.Hypothyroidism. Hospital Course: This is a 78-year-old male patient admitted to the hospital with complaints of feel ing tired and short of breath. Please see dictated H and P for more information. After the patient came into emergency room with few days history of increasing tiredness and shortness of breath, he wa s admitted to the hospital with atrial fibrillation. The patient was started on Lovenox injection al heather with sotalol. His other home medications were continued. The patient did not convert to sinus r hythm with sotalol, so this morning mold chipper decided to do cardioversion and it was successful, a nd the patient came back to sinus rhythm. After this cardioversion, mold chipper informed me that fr om Cardiology point of view, the patient can be discharged to go home with Xarelto and sotalol and to discontinue aspirin and metoprolol, and the patient is medically stable for discharge. I will continue to follow up on outpatient basis. NIKI/ALFRED Voice ID: [id number] Report ID: [id number]
== END 2018-05-27 13:10 | disposition home or self-care (01) | DRG 310 ==
LOC: ER 08:46 → ERHOLD 10:20 → 4TH 16:05
PROVIDERS: ADMIT Internal Medicine; ATTEND Internal Medicine
PROC: 5A2204Z Restoration of Cardiac Rhythm, Single (ICD-10-PCS; principal; 2018-05-27)
DX: I48.0 Paroxysmal atrial fibrillation (principal); I10 Essential (primary) hypertension; E78.5 Hyperlipidemia, unspecified; E11.9 Type 2 diabetes mellitus without complications; Z85.850 Personal history of malignant neoplasm of thyroid; E78.2 Mixed hyperlipidemia; Z96.649 Presence of unspecified artificial hip joint; E89.0 Postprocedural hypothyroidism
CPT/HCPCS: 36415; 71045; 80048; 80076; 81003; 82962; 83735; 83880; 84439; 84443; 84484; 85025; 85610; 92960; 93005; 96360; 96372; 99284; J0583; J1650; J2250; J3010

== ENCOUNTER 2018-07-07 07:15 | Day surgery (SDC) | payer OTHER ==
[2018-07-06 15:43] LABS: Absolute Lymphocytes (CBC) 1.4 K/uL (0.7-4.9); Absolute Monocytes 0.5 K/uL (0.1-1.3); Absolute Neutrophil 3.4 K/uL (1.8-8.0); Basophils % 1.4 % (0-1.3); Hematocrit 46.4 % (39.6-49.0); Lymphocytes % 24.2 % (15.3-44.8); MPV 8.6 fL (7.6-11.3); Monocytes % 9.3 % (3.3-12.3); RBC Red Blood Cell Count 5.23 M/uL (4.33-5.43)
[2018-07-06 15:55] LABS: Protime INR 1.19
[2018-07-06 15:58] LABS: Potassium 3.9 mmol/L (3.5-5.1)
--- OUTSIDE RECORDS SUMMARY | 2018-07-07 07:19 | XMS REPORT | Clinical Summary ---
:1940 Author Organization [facility] Address [address] [place] [address] Care Team Providers Name Role Phone Kevin [...] AGE 65 AND OVER 2005 INFLUENZA VACCINE 10/08/2018 Results Not on fileafter 07/06/2017 Insurance Payer Benefit Plan / Group Subscriber ID Type Phone Address AETNA MEDICARE AETNA MEDICARE HMO/PP[facility] xxxxxxxx HMO [address] [facility] (Home) [place] [id number] Advance Directives Patient has advance care planning documents on file. For more information, please contact:[facility] [place] [address]
[2018-07-07] MEDS ORDERED: NA CHLORIDE 0.9% 500 ML ONE (07:53)
[2018-07-07] MEDS ORDERED: NA CHLORIDE 0.9% 0 ML ONE (08:38)
[2018-07-07] MEDS ORDERED: NA CHLORIDE 0.9% 100 ML IV ONE (08:38)
[2018-07-07] MEDS ORDERED: HEPA 1000U/500MLS 1,000 UNIT/500 ML BAG IV ONE (08:38)
[2018-07-07] MEDS ORDERED: MIDAZOLAM HCL 2 MG/2 ML INJ ONE (09:01)
[2018-07-07] MEDS ORDERED: FENTANYL CITR 100 MCG/2 ML ONE (09:02)
[2018-07-07] MEDS ORDERED: ATROPINE SULF 1 MG/10 ML SYR IV ONE (09:02)
[2018-07-07 10:45] VITALS: TEMP 97.4
[2018-07-07 12:16] VITALS: BP 159/91; O2SAT 96
--- NOTE | 2018-07-09 07:18 | OP ---
Date of Procedure: 07/07/2018 Surgeon: Jhoan Miranda MD Advertising Campaign Manager: Rambo Isaacs. Procedures: Left heart catheterization, right heart catheterization, oxygen saturation and cardiac o utput measurements. Indication: Unstable angina and aortic stenosis. Indications: Mr. Poole is 78-year-old, is a patient of Dr. Jones, has had aortic stenosis that we have been following over the years, but now has become very symptomatic. Echocardiogram showed an ao rtic valve area of 0.8 cm2. Description Of Procedure: He was brought to the lab support tech, prepped and draped in the routine sterile fashion, given 2 mg of Versed and 50 of fentanyl for IV sedation. A venous sheath was 7-Nigerian in th e right common femoral vein. A 6-Nigerian sheath in the right common femoral artery were introduced. Angiography there was normal. [employer] was used to close the case. Left heart catheterization reve aled an 80-90% mid LAD lesion right before the second diagonal, diffuse plaquing, otherwise normal ci rcumflex, a completely occluded RCA. Right heart catheterization revealed a cardiac output of 4.6 L/ minute, normal O2 saturation levels, normal right heart with normal PA pressure, RV pressure wedge w as mildly elevated at 18. Left ventricular end-diastolic pressure was not measured. Valve could not be crossed. Total conscious sedation was 45 minutes. Complications: None. Blood Loss: 5 cc. Final Diagnoses: Coronary artery disease and severe aortic stenosis. Plan: CAVAZOS to the LAD and aortic valve replacement. Case was discussed with the family in detail. He will be going to Dr. Shine Talavera as an outpatient for the procedure. A CD was given to him. GILBERTO/ALFRED Voice ID: [id number] Report ID: [id number]
== END 2018-07-07 12:17 | disposition home or self-care (01) ==
LOC: CCL 07:15
DX: I25.110 Atherosclerotic heart disease of native coronary artery with unstable angina pectoris (principal); I35.0 Nonrheumatic aortic (valve) stenosis; E11.9 Type 2 diabetes mellitus without complications; E78.5 Hyperlipidemia, unspecified; I10 Essential (primary) hypertension; E03.9 Hypothyroidism, unspecified; Z79.84 Long term (current) use of oral hypoglycemic drugs; Z79.899 Other long term (current) drug therapy; Z82.49 Family history of ischemic heart disease and other diseases of the circulatory system; Z87.891 Personal history of nicotine dependence
CPT/HCPCS: 85025; 80048; 36415; 85610; 82962; 85730; 93456; C1893; J2250; J3010; J0583

== ENCOUNTER 2019-03-01 12:36 | Observation (INO) | payer OTHER ==
--- OUTSIDE RECORDS SUMMARY | 2019-03-01 12:41 | XMS REPORT ---
:1940 [facility] [address] [place] [address] Care Team Providers Name Role Phone SHINE TALAVERA Unavailable Unavailable Problems This patient has no known problems. Allergies, Adverse Reactions, Alerts This patient has no known allergies or adverse reactions. Medications This patient has no known medications. Results Test Description Test Time Test Comments Text Results Atomic Results Result Comments POCT-GLUCOSE METER 2018-07-29 16:36:00 Test Item Value Reference Range Comments POC-GLUCOSE METER (BEAKER) (test 108 mg/dL 70-110 TESTED AT [facility] [address] [place] [address] gvxn=5086) [facility] [address] BASIC METABOLIC [id number] 08:25:00 Test Item Value Reference Range Comments SODIUM (BEAKER) (test 138 meq/L 136-145 qukx=512) POTASSIUM (BEAKER) (test 4.1 meq/L 3.5-5.1 cwhi=501) CHLORIDE (BEAKER) (test 103 meq/L 98-107 yqwo=017) CO2 (BEAKER) (test 26 meq/L 22-29 vdwg=464) BLOOD UREA NITROGEN 19 mg/dL 7-21 (BEAKER) (test ragc=068) CREATININE (BEAKER) (test 0.85 mg/dL 0.57-1.25 wgsx=100) GLUCOSE RANDOM (BEAKER) 100 mg/dL 70-105 (test sdlw=007) CALCIUM (BEAKER) (test 8.2 mg/dL 8.4-10.2 zpzl=574) EGFR (BEAKER) (test 87 mL/min/1.73 sq m ESTIMATED GFR IS NOT gxzi=4816) ACCURATE CREATININE CLEARANCE IN PREDICTING GLOMERULAR FILTRATION RATE. ESTIMATED GFR IS NOT APPLICABLE FOR DIALYSIS PATIENTS. CBC W/PLT COUNT & AUTO [id number] 05:31:00 Test Item Value Reference Range Comments WHITE BLOOD CELL COUNT (BEAKER) (test uzcy=503) 8.4 K/ L 3.5-10.5 RED BLOOD CELL COUNT (BEAKER) (test aghs=542) 3.49 M/ L 4.63-6.08 HEMOGLOBIN (BEAKER) (test jywg=525) 10.3 GM/DL 13.7-17.5 HEMATOCRIT (BEAKER) (test oaul=252) 31.7 % 40.1-51.0 MEAN CORPUSCULAR VOLUME (BEAKER) (test mwez=479) 90.8 fL 79.0-92.2 MEAN CORPUSCULAR HEMOGLOBIN (BEAKER) (test 29.5 pg 25.7-32.2 sifz=952) MEAN CORPUSCULAR HEMOGLOBIN CONC (BEAKER) (test 32.5 GM/DL 32.3-36.5 tyit=391) RED CELL DISTRIBUTION WIDTH (BEAKER) (test 14.7 % 11.6-14.4 cthx=303) PLATELET COUNT (BEAKER) (test cehx=238) 238 K/CU MM 150-450 MEAN PLATELET VOLUME (BEAKER) (test hlwn=598) 10.5 fL 9.4-12.4 NUCLEATED RED BLOOD CELLS (BEAKER) (test 0 /100 WBC 0-0 yvmk=314) NEUTROPHILS RELATIVE PERCENT (BEAKER) (test 68 % hrju=682) LYMPHOCYTES RELATIVE PERCENT (BEAKER) (test 17 % yrrl=757) MONOCYTES RELATIVE PERCENT (BEAKER) (test 7 % xlqi=277) EOSINOPHILS RELATIVE PERCENT (BEAKER) (test 7 % rjam=480) BASOPHILS RELATIVE PERCENT (BEAKER) (test 1 % iogq=256) NEUTROPHILS ABSOLUTE COUNT (BEAKER) (test 5.70 K/ L 1.78-5.38 kxrs=992) LYMPHOCYTES ABSOLUTE COUNT (BEAKER) (test 1.42 K/ L 1.32-3.57 ukdu=560) MONOCYTES ABSOLUTE COUNT (BEAKER) (test 0.61 K/ L 0.30-0.82 dkxf=723) EOSINOPHILS ABSOLUTE COUNT (BEAKER) (test 0.56 K/ L 0.04-0.54 hmre=688) BASOPHILS ABSOLUTE COUNT (BEAKER) (test 0.06 K/ L 0.01-0.08 zmck=859) IMMATURE GRANULOCYTES-RELATIVE PERCENT (BEAKER) 1 % 0-1 (test hsom=7590) POCT-GLUCOSE [id number] 23:32:00 Test Item Value Reference Range Comments POC-GLUCOSE METER (BEAKER) 95 mg/dL 70-110 TESTED AT [address] (test exsc=6411) [place] [address] POCT-GLUCOSE [id number] 17:21:00 Test Item Value Reference Range Comments POC-GLUCOSE METER (BEAKER) 104 mg/dL 70-110 TESTED AT [address] (test fjji=9240) [place] [address] [id number] 10:35:00 Test Item Value Reference Range Comments MAGNESIUM (BEAKER) (test bvkh=981) 1.9 mg/dL 1.6-2.6 POCT-GLUCOSE [id number] 09:09:00 Test Item Value Reference Range Comments POC-GLUCOSE METER (BEAKER) 122 mg/dL 70-110 TESTED AT [address] (test nexs=3282) [place] [address] BASIC METABOLIC [id number] 02:49:00 Test Item Value Reference Range Comments SODIUM (BEAKER) (test 138 meq/L 136-145 twrx=159) POTASSIUM (BEAKER) (test 3.6 meq/L 3.5-5.1 fphe=151) CHLORIDE (BEAKER) (test 103 meq/L 98-107 dmla=003) CO2 (BEAKER) (test 24 meq/L 22-29 wnsx=697) BLOOD UREA NITROGEN 18 mg/dL 7-21 (BEAKER) (test dsbr=540) CREATININE (BEAKER) (test 0.89 mg/dL 0.57-1.25 pwlo=302) GLUCOSE RANDOM (BEAKER) 136 mg/dL 70-105 (test qbvd=030) CALCIUM (BEAKER) (test 8.3 mg/dL 8.4-10.2 gxsv=390) EGFR (BEAKER) (test 83 mL/min/1.73 sq m ESTIMATED GFR IS NOT gabx=3184) ACCURATE CREATININE CLEARANCE IN PREDICTING GLOMERULAR FILTRATION RATE. ESTIMATED GFR IS NOT APPLICABLE FOR DIALYSIS PATIENTS. LACTIC ACID, [id number] 02:46:00 Test Item Value Reference Range Comments LACTATE BLOOD VENOUS (2) (BEAKER) (test 2.0 mmol/L 0.5-2.2 blib=9323) LACTIC ACID, [id number] 22:31:00 Test Item Value Reference Range Comments LACTATE BLOOD VENOUS (2) (BEAKER) (test 2.1 mmol/L 0.5-2.2 bhdx=9162) POCT-GLUCOSE [id number] 21:55:00 Test Item Value Reference Range Comments POC-GLUCOSE METER (BEAKER) 168 mg/dL 70-110 TESTED AT [facility] [address] [facility] (test qjpo=5490) [facility] [address] [id number] 20:15:00 Test Item Value Reference Range Comments MAGNESIUM (BEAKER) (test txjk=516) 1.9 mg/dL 1.6-2.6 BASIC METABOLIC [id number] 20:15:00 Test Item Value Reference Range Comments SODIUM (BEAKER) (test 137 meq/L 136-145 nmzm=979) POTASSIUM (BEAKER) (test 3.7 meq/L 3.5-5.1 huzz=802) CHLORIDE (BEAKER) (test 103 meq/L 98-107 jycn=597) CO2 (BEAKER) (test 22 meq/L 22-29 fmfo=713) BLOOD UREA NITROGEN 16 mg/dL 7-21 (BEAKER) (test ornp=708) CREATININE (BEAKER) (test 0.85 mg/dL 0.57-1.25 osuf=884) GLUCOSE RANDOM (BEAKER) 187 mg/dL 70-105 (test smly=016) CALCIUM (BEAKER) (test 8.6 mg/dL 8.4-10.2 okax=834) EGFR (BEAKER) (test 87 mL/min/1.73 sq m ESTIMATED GFR IS NOT xdjs=0440) ACCURATE CREATININE CLEARANCE IN PREDICTING GLOMERULAR FILTRATION RATE. ESTIMATED GFR IS NOT APPLICABLE FOR DIALYSIS PATIENTS. CBC W/PLT COUNT & AUTO [id number] 20:14:00 Test Item Value Reference Range Comments WHITE BLOOD CELL COUNT (BEAKER) (test egvq=066) 11.8 K/ L 3.5-10.5 RED BLOOD CELL COUNT (BEAKER) (test bcqh=083) 3.74 M/ L 4.63-6.08 HEMOGLOBIN (BEAKER) (test jtaq=316) 11.0 GM/DL 13.7-17.5 HEMATOCRIT (BEAKER) (test qjxe=618) 34.5 % 40.1-51.0 MEAN CORPUSCULAR VOLUME (BEAKER) (test lbqo=919) 92.2 fL 79.0-92.2 MEAN CORPUSCULAR HEMOGLOBIN (BEAKER) (test 29.4 pg 25.7-32.2 sdaz=011) MEAN CORPUSCULAR HEMOGLOBIN CONC (BEAKER) (test 31.9 GM/DL 32.3-36.5 yoqd=801) RED CELL DISTRIBUTION WIDTH (BEAKER) (test 14.6 % 11.6-14.4 wqbi=968) PLATELET COUNT (BEAKER) (test tgkd=119) 302 K/CU MM 150-450 MEAN PLATELET VOLUME (BEAKER) (test dpln=198) 10.8 fL 9.4-12.4 NUCLEATED RED BLOOD CELLS (BEAKER) (test 0 /100 WBC 0-0 ntuo=723) NEUTROPHILS RELATIVE PERCENT (BEAKER) (test 81 % iufc=034) LYMPHOCYTES RELATIVE PERCENT (BEAKER) (test 10 % mbdb=309) MONOCYTES RELATIVE PERCENT (BEAKER) (test 7 % vpty=072) EOSINOPHILS RELATIVE PERCENT (BEAKER) (test 1 % fawd=503) BASOPHILS RELATIVE PERCENT (BEAKER) (test 0 % rjcg=095) NEUTROPHILS ABSOLUTE COUNT (BEAKER) (test 9.58 K/ L 1.78-5.38 nphb=985) LYMPHOCYTES ABSOLUTE COUNT (BEAKER) (test 1.13 K/ L 1.32-3.57 ygph=457) MONOCYTES ABSOLUTE COUNT (BEAKER) (test 0.79 K/ L 0.30-0.82 zhpu=957) EOSINOPHILS ABSOLUTE COUNT (BEAKER) (test 0.15 K/ L 0.04-0.54 upjt=344) BASOPHILS ABSOLUTE COUNT (BEAKER) (test 0.05 K/ L 0.01-0.08 ovsu=501) IMMATURE GRANULOCYTES-RELATIVE PERCENT (BEAKER) 1 % 0-1 (test evtj=4594) POCT-LACTIC ACID, [id number] 19:45:00 Test Item Value Reference Range Comments POC-LACTIC ACID, VENOUS 2.4 mmol/L 0.9-1.7 TESTED AT [facility] [address] [facility] (BEAKER) (test puuu=5067) [facility] [address] POCT-GLUCOSE [id number] 19:25:00 Test Item Value Reference Range Comments POC-GLUCOSE METER (BEAKER) 204 mg/dL 70-110 TESTED AT [facility] [address] [facility] (test sygs=1187) [facility] [address] POCT-GLUCOSE [id number] 17:24:00 Test Item Value Reference Range Comments POC-GLUCOSE METER (BEAKER) 149 mg/dL 70-110 TESTED AT [facility] [address] [facility] (test comp=4620) [facility] [address] RAD, CHEST, 1 VIEW, NON [id number] 12:01:00Reason for exam:-> dyspneaShould this be performed at the bedside?->YesFINAL REPORT CLINICAL HISTORY: dyspnea TECHNIQUE: 1 view of the chest. COMPARISON: 07/25/2018 IMPRESSION: Left lung base pleural-parenchymal opacity is unchanged. The right lung remains relatively well-aerated. The cardiomediastinal silhouette is magnified by technique with sternotomy wires. Signed: Alan Chi [facility] Hospital[facility] Verified Date/Time: 07/27/2018 12:01:19 Reading Location: [facility] Radiology Reading Room TISSUE [id number] 11:59: 00Surgical Pathology Report Case: [id number] Authorizing Provider: Shine Talavera, Collected : 07/21/2018 1022 OrderingLocation: [facility] Received: 07/21/2018 1159 PERIOPERATIVE SERVICES Pathologist: Davion Mallory MD Specimen: Aortic Valve HEART, AORTIC VALVE,VALVULECTOMY:LEAFLETS WITH SEVERE NODULAR CALCIFIC ATHEROSCLEROTIC THICKENING Signing Pathologist Direct Phone Line: [phone]; [id number] disease disease, aortic valve stenosis, etiology of cardiac valve disease unspecifiedAortic valve The specimen is received in a single container in formalin labeled with thepatient's information as well as "aortic valve tissue". It contains two membranous portions of valvular tissue, one measuring 3.5 x 1.5 x 0.2 cm and the other piece measuring 3.4 x 2.5 x 1.3 cm. Portion of the valvular tissue is conklin-white and glistening, but diffuse calcifications are seen. No vegetations or masses are appreciated. The specimen is submitted representatively in a single cassette following decalcification. RC /[id number] 11:30:00 Test Item Value Reference Range Comments MAGNESIUM (BEAKER) (test dtsi=183) 1.7 mg/dL 1.6-2.6 POCT-GLUCOSE [id number] 09:47:00 Test Item Value Reference Range Comments POC-GLUCOSE METER (BEAKER) 114 mg/dL 70-110 TESTED AT [address] (test zfbn=2266) [place] [address] BASIC METABOLIC [id number] 05:37:00 Test Item Value Reference Range Comments SODIUM (BEAKER) (test 137 meq/L 136-145 nhwt=486) POTASSIUM (BEAKER) (test 3.8 meq/L 3.5-5.1 aguh=423) CHLORIDE (BEAKER) (test 102 meq/L 98-107 shtp=082) CO2 (BEAKER) (test 26 meq/L 22-29 blhy=758) BLOOD UREA NITROGEN 13 mg/dL 7-21 (BEAKER) (test rmka=928) CREATININE (BEAKER) (test 0.74 mg/dL 0.57-1.25 msgs=723) GLUCOSE RANDOM (BEAKER) 109 mg/dL 70-105 (test zvbd=275) CALCIUM (BEAKER) (test 8.4 mg/dL 8.4-10.2 svmn=189) EGFR (BEAKER) (test 102 mL/min/1.73 sq m ESTIMATED GFR IS NOT uops=8666) ACCURATE CREATININE CLEARANCE IN PREDICTING GLOMERULAR FILTRATION RATE. ESTIMATED GFR IS NOT APPLICABLE FOR DIALYSIS PATIENTS. POCT-GLUCOSE [id number] 21:01:00 Test Item Value Reference Range Comments POC-GLUCOSE METER (BEAKER) 136 mg/dL 70-110 TESTED AT [address] (test brfx=9001) [place] [address] POCT-GLUCOSE [id number] 15:47:00 Test Item Value Reference Range Comments POC-GLUCOSE METER (BEAKER) 121 mg/dL 70-110 TESTED AT [address] (test gdqi=2289) [place] [address] POCT-GLUCOSE [id number] 09:34:00 Test Item Value Reference Range Comments POC-GLUCOSE METER (BEAKER) 95 mg/dL 70-110 TESTED AT [address] (test xqqd=0215) [facility] [address] BASIC METABOLIC [id number] 07:28:00 Test Item Value Reference Range Comments SODIUM (BEAKER) (test 136 meq/L 136-145 fqqm=932) POTASSIUM (BEAKER) (test 3.6 meq/L 3.5-5.1 zmtl=647) CHLORIDE (BEAKER) (test 101 meq/L 98-107 ytxc=199) CO2 (BEAKER) (test 26 meq/L 22-29 shts=555) BLOOD UREA NITROGEN 15 mg/dL 7-21 (BEAKER) (test hkar=754) CREATININE (BEAKER) (test 0.69 mg/dL 0.57-1.25 ljnh=323) GLUCOSE RANDOM (BEAKER) 107 mg/dL 70-105 (test wwwe=175) CALCIUM (BEAKER) (test 7.9 mg/dL 8.4-10.2 gwcb=423) EGFR (BEAKER) (test 111 mL/min/1.73 sq m ESTIMATED GFR IS NOT zxfi=5565) ACCURATE CREATININE CLEARANCE IN PREDICTING GLOMERULAR FILTRATION RATE. ESTIMATED GFR IS NOT APPLICABLE FOR DIALYSIS PATIENTS. POCT-GLUCOSE [id number] 22:08:00 Test Item Value Reference Range Comments POC-GLUCOSE METER (BEAKER) 149 mg/dL 70-110 TESTED AT [address] (test lkli=5861) [place] [address] POCT-GLUCOSE [id number] 15:46:00 Test Item Value Reference Range Comments POC-GLUCOSE METER (BEAKER) 95 mg/dL 70-110 TESTED AT [address] (test dajw=9157) [place] [address] B-TYPE NATRIURETIC FACTOR (BNP)2018-07-25 11:55:00 Test Item Value Reference Range Comments B-TYPE NATRIURETIC PEPTIDE (BEAKER) (test 301 pg/mL 0-100 nqnn=201) RAD, CHEST, 1 VIEW, NON [id number] 11:29:00Reason for exam:->shortness of breathShould this be performed at the bedside?->YesFINAL REPORT Comparison: 07/24/2018 TECHNIQUE: Single view of the chest FINDINGS : Small left pleural effusion with adjacent airspace disease. Mild vascular congestion suspected elsewhere. Cardiac silhouette is enlarged. Postsurgical changes in the mediastinum noted. Signed: Aung Kelsey MDReport Verified Date/Time : 07/25/2018 11:29:19 Reading Location: [address] Transitional Reading Room [id number] 09:47:00 Test Item Value Reference Range Comments MAGNESIUM (BEAKER) (test bhfq=742) 1.9 mg/dL 1.6-2.6 BASIC METABOLIC [id number] 09:47:00 Test Item Value Reference Range Comments SODIUM (BEAKER) (test 138 meq/L 136-145 uihc=171) POTASSIUM (BEAKER) (test 3.6 meq/L 3.5-5.1 uxpv=994) CHLORIDE (BEAKER) (test 102 meq/L 98-107 awbo=918) CO2 (BEAKER) (test 26 meq/L 22-29 hkry=225) BLOOD UREA NITROGEN 14 mg/dL 7-21 (BEAKER) (test jxnm=185) CREATININE (BEAKER) (test 0.73 mg/dL 0.57-1.25 gsnh=361) GLUCOSE RANDOM (BEAKER) 101 mg/dL 70-105 (test qszb=243) CALCIUM (BEAKER) (test 8.5 mg/dL 8.4-10.2 obhx=249) EGFR (BEAKER) (test 104 mL/min/1.73 sq m ESTIMATED GFR IS NOT navt=4126) ACCURATE CREATININE CLEARANCE IN PREDICTING GLOMERULAR FILTRATION RATE. ESTIMATED GFR IS NOT APPLICABLE FOR DIALYSIS PATIENTS. POCT-GLUCOSE [id number] 08:41:00 Test Item Value Reference Range Comments POC-GLUCOSE METER (BEAKER) 115 mg/dL 70-110 TESTED AT [facility] [address] [facility] (test loco=6892) [facility] [address] CBC W/PLT COUNT & AUTO [id number] 06:04:00 Test Item Value Reference Range Comments WHITE BLOOD CELL COUNT (BEAKER) (test nmvx=846) 9.1 K/ L 3.5-10.5 RED BLOOD CELL COUNT (BEAKER) (test vjij=236) 3.73 M/ L 4.63-6.08 HEMOGLOBIN (BEAKER) (test zjcw=137) 11.0 GM/DL 13.7-17.5 HEMATOCRIT (BEAKER) (test dfrd=832) 34.1 % 40.1-51.0 MEAN CORPUSCULAR VOLUME (BEAKER) (test efim=231) 91.4 fL 79.0-92.2 MEAN CORPUSCULAR HEMOGLOBIN (BEAKER) (test 29.5 pg 25.7-32.2 adxx=697) MEAN CORPUSCULAR HEMOGLOBIN CONC (BEAKER) (test 32.3 GM/DL 32.3-36.5 xkpy=213) RED CELL DISTRIBUTION WIDTH (BEAKER) (test 14.7 % 11.6-14.4 jwlg=992) PLATELET COUNT (BEAKER) (test xqtf=986) 182 K/CU MM 150-450 MEAN PLATELET VOLUME (BEAKER) (test ohza=875) 10.9 fL 9.4-12.4 NUCLEATED RED BLOOD CELLS (BEAKER) (test 0 /100 WBC 0-0 jkfz=994) NEUTROPHILS RELATIVE PERCENT (BEAKER) (test 74 % ltzr=716) LYMPHOCYTES RELATIVE PERCENT (BEAKER) (test 13 % dqxz=595) MONOCYTES RELATIVE PERCENT (BEAKER) (test 9 % brgv=166) EOSINOPHILS RELATIVE PERCENT (BEAKER) (test 3 % uqtx=423) BASOPHILS RELATIVE PERCENT (BEAKER) (test 1 % hqan=005) NEUTROPHILS ABSOLUTE COUNT (BEAKER) (test 6.71 K/ L 1.78-5.38 infk=252) LYMPHOCYTES ABSOLUTE COUNT (BEAKER) (test 1.14 K/ L 1.32-3.57 ynjp=152) MONOCYTES ABSOLUTE COUNT (BEAKER) (test 0.82 K/ L 0.30-0.82 qmwf=074) EOSINOPHILS ABSOLUTE COUNT (BEAKER) (test 0.30 K/ L 0.04-0.54 awxn=884) BASOPHILS ABSOLUTE COUNT (BEAKER) (test 0.06 K/ L 0.01-0.08 ypgs=467) IMMATURE GRANULOCYTES-RELATIVE PERCENT (BEAKER) 1 % 0-1 (test janw=8549) POCT-GLUCOSE [id number] 21:45:00 Test Item Value Reference Range Comments POC-GLUCOSE METER (BEAKER) 120 mg/dL 70-110 TESTED AT [address] (test xtgl=2088) [place] [id number] POCT-GLUCOSE [id number] 18:01:00 Test Item Value Reference Range Comments POC-GLUCOSE METER (BEAKER) 150 mg/dL 70-110 TESTED AT [address] (test ogig=1150) [place] [address] POCT-GLUCOSE [id number] 13:03:00 Test Item Value Reference Range Comments POC-GLUCOSE METER (BEAKER) 152 mg/dL 70-110 TESTED AT [address] (test zqzo=0889) [place] [address] RAD, CHEST, 1 VIEW, NON [id number] 09:45:00Reason for exam:->pleural effShould this be performed at the bedside?->YesFINAL REPORT TECHNIQUE: Frontal chest radiograph dated 07/24/2018. CLINICAL HISTORY : Pleural effusion COMPARISON STUDY: Chest radiograph dated 07/22/2018 IMPRESSION :The extreme lateral left lung base is not included in the coiht-ag-qdkw. A small left pleural effusion is suspected. Stable left lung base atelectasis. No pneumothorax. Cardiomediastinal silhouette is normal in size.No pulmonary edema. Midline sternotomy wires are intact and well aligned. Signed: Neel HamMDReport Verified Date/Time: 07/24/2018 09:45:08 Reading Location: [facility] Radiology Reading Room POCT-GLUCOSE [id number] 08:16:00 Test Item Value Reference Range Comments POC-GLUCOSE METER (BEAKER) 149 mg/dL 70-110 TESTED AT [address] (test hwzr=7896) [place] [address] [id number] 07:48:00 Test Item Value Reference Range Comments PHOSPHORUS (BEAKER) (test znwu=602) 1.5 mg/dL 2.3-4.7 [id number] 07:43:00 Test Item Value Reference Range Comments MAGNESIUM (BEAKER) (test vcfd=043) 1.8 mg/dL 1.6-2.6 BASIC METABOLIC [id number] 07:43:00 Test Item Value Reference Range Comments SODIUM (BEAKER) (test 134 meq/L 136-145 rjjw=669) POTASSIUM (BEAKER) (test 3.5 meq/L 3.5-5.1 rjvj=362) CHLORIDE (BEAKER) (test 101 meq/L 98-107 fshw=063) CO2 (BEAKER) (test 24 meq/L 22-29 hesz=055) BLOOD UREA NITROGEN 12 mg/dL 7-21 (BEAKER) (test jxfr=810) CREATININE (BEAKER) (test 0.75 mg/dL 0.57-1.25 mula=739) GLUCOSE RANDOM (BEAKER) 103 mg/dL 70-105 (test zlgt=404) CALCIUM (BEAKER) (test 8.1 mg/dL 8.4-10.2 hubt=271) EGFR (BEAKER) (test 101 mL/min/1.73 sq m ESTIMATED GFR IS NOT syte=0213) ACCURATE CREATININE CLEARANCE IN PREDICTING GLOMERULAR FILTRATION RATE. ESTIMATED GFR IS NOT APPLICABLE FOR DIALYSIS PATIENTS. CBC W/PLT COUNT & AUTO [id number] 06:04:00 Test Item Value Reference Range Comments WHITE BLOOD CELL COUNT (BEAKER) (test pkyb=530) 12.0 K/ L 3.5-10.5 RED BLOOD CELL COUNT (BEAKER) (test ryyd=770) 3.47 M/ L 4.63-6.08 HEMOGLOBIN (BEAKER) (test tgeb=861) 10.2 GM/DL 13.7-17.5 HEMATOCRIT (BEAKER) (test qzlk=129) 31.8 % 40.1-51.0 MEAN CORPUSCULAR VOLUME (BEAKER) (test wxao=804) 91.6 fL 79.0-92.2 MEAN CORPUSCULAR HEMOGLOBIN (BEAKER) (test 29.4 pg 25.7-32.2 kfcf=008) MEAN CORPUSCULAR HEMOGLOBIN CONC (BEAKER) (test 32.1 GM/DL 32.3-36.5 mumd=337) RED CELL DISTRIBUTION WIDTH (BEAKER) (test 14.7 % 11.6-14.4 cgwv=527) PLATELET COUNT (BEAKER) (test qeuh=660) 134 K/CU MM 150-450 MEAN PLATELET VOLUME (BEAKER) (test thuj=923) 11.1 fL 9.4-12.4 NUCLEATED RED BLOOD CELLS (BEAKER) (test 0 /100 WBC 0-0 jekl=624) NEUTROPHILS RELATIVE PERCENT (BEAKER) (test 80 % dgbz=419) LYMPHOCYTES RELATIVE PERCENT (BEAKER) (test 10 % ksjq=587) MONOCYTES RELATIVE PERCENT (BEAKER) (test 8 % mhpo=825) EOSINOPHILS RELATIVE PERCENT (BEAKER) (test 1 % behs=656) BASOPHILS RELATIVE PERCENT (BEAKER) (test 0 % biox=569) NEUTROPHILS ABSOLUTE COUNT (BEAKER) (test 9.58 K/ L 1.78-5.38 minm=328) LYMPHOCYTES ABSOLUTE COUNT (BEAKER) (test 1.14 K/ L 1.32-3.57 jypi=363) MONOCYTES ABSOLUTE COUNT (BEAKER) (test 0.99 K/ L 0.30-0.82 jzsx=772) EOSINOPHILS ABSOLUTE COUNT (BEAKER) (test 0.13 K/ L 0.04-0.54 iypr=988) BASOPHILS ABSOLUTE COUNT (BEAKER) (test 0.05 K/ L 0.01-0.08 pscj=896) IMMATURE GRANULOCYTES-RELATIVE PERCENT (BEAKER) 1 % 0-1 (test hybt=9438) POCT-GLUCOSE [id number] 21:28:00 Test Item Value Reference Range Comments POC-GLUCOSE METER (BEAKER) 130 mg/dL 70-110 TESTED AT [facility] [address] [facility] (test bmwz=5902) [facility] [address] URINALYSIS W/ REFLEX URINE [id number] 18:20:00 Test Item Value Reference Range Comments COLOR (BEAKER) (test siei=205) Yellow CLARITY (BEAKER) (test znir=674) Clear SPECIFIC GRAVITY UA (BEAKER) (test zelb=925) 1.023 1.001-1.035 PH UA (BEAKER) (test jxsj=297) 5.5 5.0-8.0 PROTEIN UA (BEAKER) (test nagg=198) 30 mg/dL Negative GLUCOSE UA (BEAKER) (test xcph=615) 70 mg/dL Negative KETONES UA (BEAKER) (test tmef=906) 20 mg/dL Negative BILIRUBIN UA (BEAKER) (test mkyf=932) Negative Negative BLOOD UA (BEAKER) (test cwgq=576) Trace Negative NITRITE UA (BEAKER) (test gjyt=066) Negative Negative LEUKOCYTE ESTERASE UA (BEAKER) (test oxag=377) Negative Negative UROBILINOGEN UA (BEAKER) (test zfon=992) 0.2 mg/dL 0.2-1.0 RBC UA (BEAKER) (test rsqe=956) 2 /HPF WBC UA (BEAKER) (test idpu=730) 3 /HPF MUCUS (BEAKER) (test xsun=0174) Moderate SOURCE(BEAKER) (test jzgj=0233) POCT-GLUCOSE [id number] 14:57:00 Test Item Value Reference Range Comments POC-GLUCOSE METER (BEAKER) 135 mg/dL 70-110 TESTED AT [facility] [address] [place] [address] (test ekjd=3486) [facility] [address] B-TYPE NATRIURETIC FACTOR (BNP)2018-07-23 06:49:00 Test Item Value Reference Range Comments B-TYPE NATRIURETIC PEPTIDE (BEAKER) (test 446 pg/mL 0-100 vhis=662) [id number] 06:09:00 Test Item Value Reference Range Comments PHOSPHORUS (BEAKER) (test syrs=652) 2.4 mg/dL 2.3-4.7 [id number] 06:09:00 Test Item Value Reference Range Comments MAGNESIUM (BEAKER) (test enah=906) 2.0 mg/dL 1.6-2.6 BASIC METABOLIC [id number] 06:09:00 Test Item Value Reference Range Comments SODIUM (BEAKER) (test 136 meq/L 136-145 wjsr=416) POTASSIUM (BEAKER) (test 3.7 meq/L 3.5-5.1 aynj=217) CHLORIDE (BEAKER) (test 104 meq/L 98-107 fvde=970) CO2 (BEAKER) (test 26 meq/L 22-29 ulhu=027) BLOOD UREA NITROGEN 11 mg/dL 7-21 (BEAKER) (test pccp=542) CREATININE (BEAKER) (test 0.84 mg/dL 0.57-1.25 zjni=848) GLUCOSE RANDOM (BEAKER) 138 mg/dL 70-105 (test onsm=491) CALCIUM (BEAKER) (test 8.1 mg/dL 8.4-10.2 glts=335) EGFR (BEAKER) (test 88 mL/min/1.73 sq m ESTIMATED GFR IS NOT pxgo=0492) ACCURATE CREATININE CLEARANCE IN PREDICTING GLOMERULAR FILTRATION RATE. ESTIMATED GFR IS NOT APPLICABLE FOR DIALYSIS PATIENTS. CALCIUM, [id number] 05:57:00 Test Item Value Reference Range Comments CALCIUM IONIZED (BEAKER) (test rgfr=567) 1.03 mmol/L 1.12-1.27 PH, BLOOD (BEAKER) (test dcwo=2325) 7.44 Check serum Ionized Calcium level after 4 hours after IV Calcium replacement.CBC W/PLT COUNT & AUTO [id number] 05:46:00 Test Item Value Reference Range Comments WHITE BLOOD CELL COUNT (BEAKER) (test vbdw=550) 14.7 K/ L 3.5-10.5 RED BLOOD CELL COUNT (BEAKER) (test bqoj=249) 3.43 M/ L 4.63-6.08 HEMOGLOBIN (BEAKER) (test mbuh=149) 10.3 GM/DL 13.7-17.5 HEMATOCRIT (BEAKER) (test yeee=898) 31.4 % 40.1-51.0 MEAN CORPUSCULAR VOLUME (BEAKER) (test lvjz=233) 91.5 fL 79.0-92.2 MEAN CORPUSCULAR HEMOGLOBIN (BEAKER) (test 30.0 pg 25.7-32.2 fssr=373) MEAN CORPUSCULAR HEMOGLOBIN CONC (BEAKER) (test 32.8 GM/DL 32.3-36.5 gjwk=721) RED CELL DISTRIBUTION WIDTH (BEAKER) (test 14.5 % 11.6-14.4 wrkx=887) PLATELET COUNT (BEAKER) (test yowh=157) 114 K/CU MM 150-450 MEAN PLATELET VOLUME (BEAKER) (test fdyx=937) 11.4 fL 9.4-12.4 NUCLEATED RED BLOOD CELLS (BEAKER) (test 0 /100 WBC 0-0 loit=152) NEUTROPHILS RELATIVE PERCENT (BEAKER) (test 83 % vgjc=648) LYMPHOCYTES RELATIVE PERCENT (BEAKER) (test 8 % aoka=205) MONOCYTES RELATIVE PERCENT (BEAKER) (test 8 % vbtu=477) EOSINOPHILS RELATIVE PERCENT (BEAKER) (test 0 % rdjd=376) BASOPHILS RELATIVE PERCENT (BEAKER) (test 0 % dyvj=867) NEUTROPHILS ABSOLUTE COUNT (BEAKER) (test 12.17 K/ L 1.78-5.38 wubo=037) LYMPHOCYTES ABSOLUTE COUNT (BEAKER) (test 1.16 K/ L 1.32-3.57 jeop=225) MONOCYTES ABSOLUTE COUNT (BEAKER) (test 1.19 K/ L 0.30-0.82 iagb=305) EOSINOPHILS ABSOLUTE COUNT (BEAKER) (test 0.06 K/ L 0.04-0.54 juwn=575) BASOPHILS ABSOLUTE COUNT (BEAKER) (test 0.04 K/ L 0.01-0.08 yutt=606) IMMATURE GRANULOCYTES-RELATIVE PERCENT (BEAKER) 1 % 0-1 (test vsfl=4149) RAD, CHEST, 1 VIEW, NON [id number] 00:00:00Reason for exam:->sobShould this be performed at the bedside?->YesFINAL REPORT EXAM: Chest one view CLINICAL HISTORY: Shortness of breath COMPARISON: July 22, 2018 FINDINGS: There is interval removal of the central venous catheter. The cardiac size remains enlarged. There is no evidence of pleural effusion or pneumothorax. Increased retrocardiac opacity is noted which may represent atelectasis versus consolidation. The regional osseous structures are unremarkable. Signed: Mike Woods MDReport Verified Date/Time: 07/23/2018 00:00:17 Reading Location: [address] Consult Reading Room Electronically signed by: MIKE WOODS M.D. 07/23/2018 12:00 AMPOCT- GLUCOSE [id number] 21:49:00 Test Item Value Reference Range Comments POC-GLUCOSE METER (BEAKER) 133 mg/dL 70-110 TESTED AT [address] (test scbx=9066) [facility] [address] POCT-GLUCOSE [id number] 16:55:00 Test Item Value Reference Range Comments POC-GLUCOSE METER (BEAKER) 156 mg/dL 70-110 TESTED AT [facility] [address] [facility] (test gyjx=3909) [facility] [address] POCT-GLUCOSE [id number] 11:33:00 Test Item Value Reference Range Comments POC-GLUCOSE METER (BEAKER) 164 mg/dL 70-110 TESTED AT [facility] [address] (test rlqy=1978) [place] [address] [id number] 11:29:00 Test Item Value Reference Range Comments PARTIAL THROMBOPLASTIN TIME (BEAKER) (test 47.4 seconds 22.5-36.0 zran=849) PLATELET [id number] 11:14:00 Test Item Value Reference Range Comments PLATELET COUNT (BEAKER) (test gseu=762) 105 K/CU MM 150-450 BASIC METABOLIC [id number] 05:57:00 Test Item Value Reference Range Comments SODIUM (BEAKER) (test 138 meq/L 136-145 esbt=320) POTASSIUM (BEAKER) (test 4.0 meq/L 3.5-5.1 ghpx=456) CHLORIDE (BEAKER) (test 109 meq/L 98-107 dhon=104) CO2 (BEAKER) (test 23 meq/L 22-29 cqgr=945) BLOOD UREA NITROGEN 11 mg/dL 7-21 (BEAKER) (test iiij=887) CREATININE (BEAKER) (test 0.73 mg/dL 0.57-1.25 icos=022) GLUCOSE RANDOM (BEAKER) 149 mg/dL 70-105 (test wqhx=774) CALCIUM (BEAKER) (test 7.7 mg/dL 8.4-10.2 jfku=324) EGFR (BEAKER) (test 104 mL/min/1.73 sq m ESTIMATED GFR IS NOT eeam=8982) ACCURATE CREATININE CLEARANCE IN PREDICTING GLOMERULAR FILTRATION RATE. ESTIMATED GFR IS NOT APPLICABLE FOR DIALYSIS PATIENTS. [id number] 05:56:00 Test Item Value Reference Range Comments PHOSPHORUS (BEAKER) (test dydq=023) 3.3 mg/dL 2.3-4.7 [id number] 05:56:00 Test Item Value Reference Range Comments MAGNESIUM (BEAKER) (test gino=047) 2.0 mg/dL 1.6-2.6 CBC W/PLT COUNT & AUTO [id number] 05:34:00 Test Item Value Reference Range Comments WHITE BLOOD CELL COUNT (BEAKER) (test nlgh=528) 10.0 K/ L 3.5-10.5 RED BLOOD CELL COUNT (BEAKER) (test nfvt=223) 3.44 M/ L 4.63-6.08 HEMOGLOBIN (BEAKER) (test syrj=837) 10.3 GM/DL 13.7-17.5 HEMATOCRIT (BEAKER) (test uyrf=402) 31.4 % 40.1-51.0 MEAN CORPUSCULAR VOLUME (BEAKER) (test knxa=539) 91.3 fL 79.0-92.2 MEAN CORPUSCULAR HEMOGLOBIN (BEAKER) (test 29.9 pg 25.7-32.2 hbxc=770) MEAN CORPUSCULAR HEMOGLOBIN CONC (BEAKER) (test 32.8 GM/DL 32.3-36.5 celr=142) RED CELL DISTRIBUTION WIDTH (BEAKER) (test 14.4 % 11.6-14.4 awqf=801) PLATELET COUNT (BEAKER) (test ajmc=683) 100 K/CU MM 150-450 MEAN PLATELET VOLUME (BEAKER) (test ldlh=735) 11.1 fL 9.4-12.4 NUCLEATED RED BLOOD CELLS (BEAKER) (test 0 /100 WBC 0-0 dtqn=567) NEUTROPHILS RELATIVE PERCENT (BEAKER) (test 82 % rkyw=159) LYMPHOCYTES RELATIVE PERCENT (BEAKER) (test 10 % drxz=806) MONOCYTES RELATIVE PERCENT (BEAKER) (test 7 % cqfa=529) EOSINOPHILS RELATIVE PERCENT (BEAKER) (test 0 % mwqc=288) BASOPHILS RELATIVE PERCENT (BEAKER) (test 1 % cxfp=042) NEUTROPHILS ABSOLUTE COUNT (BEAKER) (test 8.15 K/ L 1.78-5.38 ddly=540) LYMPHOCYTES ABSOLUTE COUNT (BEAKER) (test 0.97 K/ L 1.32-3.57 ahrl=997) MONOCYTES ABSOLUTE COUNT (BEAKER) (test 0.72 K/ L 0.30-0.82 ypfl=617) EOSINOPHILS ABSOLUTE COUNT (BEAKER) (test 0.04 K/ L 0.04-0.54 ampk=315) BASOPHILS ABSOLUTE COUNT (BEAKER) (test 0.05 K/ L 0.01-0.08 oxkq=728) IMMATURE GRANULOCYTES-RELATIVE PERCENT (BEAKER) 0 % 0-1 (test wkbu=1915) OXYGEN SATURATION, [id number] 05:24:00 Test Item Value Reference Range Comments O2 SATURATION (MEASURED) (BEAKER) (test pudj=4497) 62.1 % BLOOD GAS, [id number] 05:20:00 Test Item Value Reference Range Comments PH ARTERIAL (BEAKER) (test jjlw=298) 7.40 7.35-7.45 PCO2 ARTERIAL (BEAKER) (test ihuy=976) 40 mmHg 35-45 PO2 ARTERIAL (BEAKER) (test idol=594) 83 mmHg 80-90 O2 SATURATION ARTERIAL (BEAKER) (test iqyf=930) 96.0 % 96.0-97.0 HCO3 ARTERIAL (BEAKER) (test zbxu=038) 24 mmol/L 21-29 BASE EXCESS ARTERIAL (BEAKER) (test ohpr=960) -0.2 mmol/L -2.0-3.0 PATIENT TEMPERATURE (BEAKER) (test armv=4027) 37.4 C FIO2 (BEAKER) (test hnxl=3709) 40.0 % RAD, CHEST, 1 VIEW, NON [id number] 04:49:00Reason for exam:->s/p cardiac surgeryShould this be performed at the bedside?->YesFINAL REPORT CLINICAL INDICATION: Postop Comparison: 07/21/2018 The cardiomediastinal contours are stable. The lung volumes are stable after extubation. Central pulmonary vascular prominence and bilateral parenchymal and left pleural opacities are similar to previous. There is no pneumothorax. Remaining support lines are stable. Signed: Roman Ortiz MDReport Verified Date /Time: 07/22/2018 04:49:49 Reading Location: [address] Reading Room POCT-GLUCOSE [id number] 03:10:00 Test Item Value Reference Range Comments POC-GLUCOSE METER (BEAKER) 131 mg/dL 70-110 TESTED AT [facility] [address] [facility] (test smes=4721) [facility] [address] LACTIC ACID, [id number] 22:27:00 Test Item Value Reference Range Comments LACTATE BLOOD ARTERIAL (2) (BEAKER) (test 2.0 mmol/L 0.5-2.2 ovny=4639) [id number] 22:25:00 Test Item Value Reference Range Comments MAGNESIUM (BEAKER) (test xime=135) 2.2 mg/dL 1.6-2.6 SODIUM NA-STAT [id number] 22:07:00 Test Item Value Reference Range Comments SODIUM (BEAKER) (test uytu=492) 138 meq/L 135-148 POTASSIUM-STAT [id number] 22:07:00 Test Item Value Reference Range Comments POTASSIUM (BEAKER) (test slgi=326) 4.1 meq/L 3.6-5.5 OXYGEN SATURATION, [id number] 22:07:00 Test Item Value Reference Range Comments O2 SATURATION (MEASURED) (BEAKER) (test pncn=8136) 59.7 % BLOOD GAS, [id number] 22:07:00 Test Item Value Reference Range Comments PH ARTERIAL (BEAKER) (test cmkw=046) 7.37 7.35-7.45 PCO2 ARTERIAL (BEAKER) (test tdkb=521) 42 mmHg 35-45 PO2 ARTERIAL (BEAKER) (test nenw=744) 76 mmHg 80-90 O2 SATURATION ARTERIAL (BEAKER) (test ixex=204) 94.6 % 96.0-97.0 HCO3 ARTERIAL (BEAKER) (test gvqp=162) 23 mmol/L 21-29 BASE EXCESS ARTERIAL (BEAKER) (test frir=257) -1.7 mmol/L -2.0-3.0 PATIENT TEMPERATURE (BEAKER) (test xmud=5600) 37.2 C FIO2 (BEAKER) (test bayn=6073) 40.0 % GLUCOSE-STAT [id number] 22:07:00 Test Item Value Reference Range Comments GLUCOSE RANDOM (BEAKER) (test tcrq=337) 113 mg/dL 70-110 HGB/HCT (H&H) - STAT [id number] 22:07:00 Test Item Value Reference Range Comments HEMOGLOBIN (BEAKER) (test dgdr=767) 10.9 g/dL 13.0-16.8 HEMATOCRIT (BEAKER) (test keni=737) 32.0 % 40.0-50.0 LACTIC ACID, [id number] 20:27:00 Test Item Value Reference Range Comments LACTATE BLOOD ARTERIAL (2) (BEAKER) (test 2.1 mmol/L 0.5-2.2 ztcu=9277) [id number] 20:26:00 Test Item Value Reference Range Comments POTASSIUM (BEAKER) (test kvag=229) 4.3 meq/L 3.5-5.1 [id number] 20:26:00 Test Item Value Reference Range Comments GLUCOSE RANDOM (BEAKER) (test axnj=292) 148 mg/dL 70-105 BLOOD GAS, [id number] 20:14:00 Test Item Value Reference Range Comments PH ARTERIAL (BEAKER) (test fvdx=921) 7.38 7.35-7.45 PCO2 ARTERIAL (BEAKER) (test ukly=522) 41 mmHg 35-45 PO2 ARTERIAL (BEAKER) (test lwsx=130) 143 mmHg 80-90 O2 SATURATION ARTERIAL (BEAKER) (test ycjg=975) 98.8 % 96.0-97.0 HCO3 ARTERIAL (BEAKER) (test oezh=917) 24 mmol/L 21-29 BASE EXCESS ARTERIAL (BEAKER) (test eunt=222) -1.1 mmol/L -2.0-3.0 PATIENT TEMPERATURE (BEAKER) (test bdud=5754) 37.1 C FIO2 (BEAKER) (test sokj=6427) 60.0 % POCT-GLUCOSE [id number] 18:45:00 Test Item Value Reference Range Comments POC-GLUCOSE METER (BEAKER) 136 mg/dL 70-110 TESTED AT [facility] [address] [facility] (test vmmd=0595) [facility] [address] BLOOD GAS, [id number] 17:22:00 Test Item Value Reference Range Comments PH ARTERIAL (BEAKER) (test ncey=468) 7.40 7.35-7.45 PCO2 ARTERIAL (BEAKER) (test hpja=535) 37 mmHg 35-45 PO2 ARTERIAL (BEAKER) (test lfsl=025) 107 mmHg 80-90 O2 SATURATION ARTERIAL (BEAKER) (test zunx=150) 98.1 % 96.0-97.0 HCO3 ARTERIAL (BEAKER) (test sigb=173) 23 mmol/L 21-29 BASE EXCESS ARTERIAL (BEAKER) (test wlaz=687) -1.7 mmol/L -2.0-3.0 PATIENT TEMPERATURE (BEAKER) (test kvyx=7967) 36.3 C FIO2 (BEAKER) (test kucq=3988) 60.0 % POCT-GLUCOSE [id number] 16:40:00 Test Item Value Reference Range Comments POC-GLUCOSE METER (BEAKER) 159 mg/dL 70-110 TESTED AT [facility] [address] (test jach=7971) [facility] [address] [id number] 13:26:00 Test Item Value Reference Range Comments MAGNESIUM (BEAKER) (test 2.4 mg/dL 1.6-2.6 Specimen slightly hemolyzed zosw=287) [id number] 13:26:00 Test Item Value Reference Range Comments PHOSPHORUS (BEAKER) (test 2.4 mg/dL 2.3-4.7 Specimen slightly hemolyzed lllq=677) BASIC METABOLIC [id number] 13:26:00 Test Item Value Reference Range Comments SODIUM (BEAKER) (test 139 meq/L 136-145 trha=409) POTASSIUM (BEAKER) (test 4.5 meq/L 3.5-5.1 Specimen slightly nmrt=876) hemolyzed CHLORIDE (BEAKER) (test 111 meq/L 98-107 nuyg=544) CO2 (BEAKER) (test 23 meq/L 22-29 wxdi=838) BLOOD UREA NITROGEN 17 mg/dL 7-21 (BEAKER) (test mfic=759) CREATININE (BEAKER) (test 0.88 mg/dL 0.57-1.25 Specimen slightly cqtl=596) hemolyzed GLUCOSE RANDOM (BEAKER) 167 mg/dL 70-105 (test gbrq=525) CALCIUM (BEAKER) (test 8.4 mg/dL 8.4-10.2 drmt=778) EGFR (BEAKER) (test 84 mL/min/1.73 sq m ESTIMATED GFR IS NOT lyvp=2835) ACCURATE CREATININE CLEARANCE IN PREDICTING GLOMERULAR FILTRATION RATE. ESTIMATED GFR IS NOT APPLICABLE FOR DIALYSIS PATIENTS. LACTIC ACID, [id number] 13:24:00 Test Item Value Reference Range Comments LACTATE BLOOD ARTERIAL (2) 2.7 mmol/L 0.5-2.2 Specimen slightly hemolyzed (BEAKER) (test toke=7551) [id number] 13:19:00 Test Item Value Reference Range Comments PARTIAL THROMBOPLASTIN TIME (BEAKER) (test 38.9 seconds 22.5-36.0 jtlr=907) PROTHROMBIN [id number] 13:18:00 Test Item Value Reference Range Comments PROTIME (BEAKER) (test afys=657) 17.4 seconds 11.7-14.7 INR (BEAKER) (test dbbi=623) 1.5 <=5.9 RECOMMENDED COUMADIN/WARFARIN INR THERAPY RANGESSTANDARD DOSE: 2.0 - 3.0 Includes: PROPHYLAXIS forvenous thrombosis, systemic embolization; TREATMENT for venous thrombosis and/or pulmonary embolus.HIGH RISK: Target INR is 2.5-3.5 for patients with mechanical heart valves.CBC W/PLT COUNT & AUTO [id number] 13:15:00 Test Item Value Reference Range Comments WHITE BLOOD CELL COUNT (BEAKER) (test ljcd=999) 14.0 K/ L 3.5-10.5 RED BLOOD CELL COUNT (BEAKER) (test awka=123) 3.92 M/ L 4.63-6.08 HEMOGLOBIN (BEAKER) (test nwki=221) 11.7 GM/DL 13.7-17.5 HEMATOCRIT (BEAKER) (test noiy=765) 35.6 % 40.1-51.0 MEAN CORPUSCULAR VOLUME (BEAKER) (test zwrd=432) 90.8 fL 79.0-92.2 MEAN CORPUSCULAR HEMOGLOBIN (BEAKER) (test 29.8 pg 25.7-32.2 nvio=497) MEAN CORPUSCULAR HEMOGLOBIN CONC (BEAKER) (test 32.9 GM/DL 32.3-36.5 ufob=414) RED CELL DISTRIBUTION WIDTH (BEAKER) (test 14.6 % 11.6-14.4 phrw=795) PLATELET COUNT (BEAKER) (test tknl=147) 133 K/CU MM 150-450 MEAN PLATELET VOLUME (BEAKER) (test rtga=449) 10.5 fL 9.4-12.4 NUCLEATED RED BLOOD CELLS (BEAKER) (test 0 /100 WBC 0-0 njxj=906) NEUTROPHILS RELATIVE PERCENT (BEAKER) (test 81 % kaaf=588) LYMPHOCYTES RELATIVE PERCENT (BEAKER) (test 11 % uxin=145) MONOCYTES RELATIVE PERCENT (BEAKER) (test 6 % ppjd=479) EOSINOPHILS RELATIVE PERCENT (BEAKER) (test 1 % ydix=454) BASOPHILS RELATIVE PERCENT (BEAKER) (test 0 % jvpa=422) NEUTROPHILS ABSOLUTE COUNT (BEAKER) (test 11.35 K/ L 1.78-5.38 hbmw=609) LYMPHOCYTES ABSOLUTE COUNT (BEAKER) (test 1.58 K/ L 1.32-3.57 uylb=811) MONOCYTES ABSOLUTE COUNT (BEAKER) (test 0.83 K/ L 0.30-0.82 plag=021) EOSINOPHILS ABSOLUTE COUNT (BEAKER) (test 0.08 K/ L 0.04-0.54 ghpd=084) BASOPHILS ABSOLUTE COUNT (BEAKER) (test 0.03 K/ L 0.01-0.08 ltpu=942) IMMATURE GRANULOCYTES-RELATIVE PERCENT (BEAKER) 1 % 0-1 (test xzft=2680) RAD, CHEST, 1 VIEW, NON [id number] 13:14:00Reason for exam:->s/p cardiac surgeryShould this be performed at the bedside?->YesFINAL REPORT TECHNIQUE: Frontal chest radiograph dated 07/21/2018. CLINICAL HISTORY: s/p Cardiac surgery COMPARISON STUDY: Chest radiographs dated 07/09/2018 IMPRESSION: Endotracheal tube is 3.7 cm above the roni. A right-sided internal jugular venous catheter projects over the superior vena cava near the level of the roni. Two left-sided chest tubes are present. There is left retrocardiac atelectasis. Prominent interstitial lung markings are seen bilaterally. No pleural effusion or pneumothorax. Cardiomediastinal silhouette is normal in size. No pulmonary edema. Midline sternotomy wires are intact and well aligned. Degenerative changes are seen in the spine. Signed: Neel Hameport Verified Date/Time: 07/21/2018 13:14:32 Reading Location: [facility] Radiology Reading Room BLOOD GAS, [id number] 13:10:00 Test Item Value Reference Range Comments PH ARTERIAL (BEAKER) (test jtga=536) 7.40 7.35-7.45 PCO2 ARTERIAL (BEAKER) (test mcqk=106) 38 mmHg 35-45 PO2 ARTERIAL (BEAKER) (test uclr=066) 79 mmHg 80-90 O2 SATURATION ARTERIAL (BEAKER) (test jhyb=333) 96.4 % 96.0-97.0 HCO3 ARTERIAL (BEAKER) (test xpde=146) 23 mmol/L 21-29 BASE EXCESS ARTERIAL (BEAKER) (test cdqx=920) -1.8 mmol/L -2.0-3.0 PATIENT TEMPERATURE (BEAKER) (test lnzu=5099) 35.5 C FIO2 (BEAKER) (test lxjd=7948) 60.0 % SODIUM NA-STAT [id number] 13:10:00 Test Item Value Reference Range Comments SODIUM (BEAKER) (test yprb=765) 134 meq/L 135-148 GLUCOSE-STAT [id number] 13:10:00 Test Item Value Reference Range Comments GLUCOSE RANDOM (BEAKER) (test vzua=025) 165 mg/dL 70-110 HGB/HCT (H&H) - STAT [id number] 13:10:00 Test Item Value Reference Range Comments HEMOGLOBIN (BEAKER) (test hije=324) 12.3 g/dL 13.0-16.8 HEMATOCRIT (BEAKER) (test yntz=375) 36.0 % 40.0-50.0 OXYGEN SATURATION, [id number] 13:09:00 Test Item Value Reference Range Comments O2 SATURATION (MEASURED) (BEAKER) (test qvki=7633) 70.2 % POTASSIUM-STAT [id number] 13:08:00 Test Item Value Reference Range Comments POTASSIUM (BEAKER) (test xbyc=760) 4.3 meq/L 3.6-5.5 [id number] 11:23:00 Test Item Value Reference Range Comments ACTIVATED CLOTTING TIME 114 sec TESTED AT [facility] [address] (BEAKER) (test oyii=185) [place] [address] [id number] 11:23:00 Test Item Value Reference Range Comments ACTIVATED CLOTTING TIME 719 sec TESTED AT [facility] [address] (BEAKER) (test hnjl=565) [place] [address] [id number] 11:23:00 Test Item Value Reference Range Comments ACTIVATED CLOTTING TIME 516 sec TESTED AT [facility] [address] (BEAKER) (test moql=300) [place] [address] [id number] 11:23:00 Test Item Value Reference Range Comments ACTIVATED CLOTTING TIME 598 sec TESTED AT [facility] [address] (BEAKER) (test wgjn=849) [place] [address] BLOOD GAS, [id number] 11:21:00 Test Item Value Reference Range Comments PH ARTERIAL (BEAKER) (test yrqh=581) 7.33 7.35-7.45 PCO2 ARTERIAL (BEAKER) (test maoq=482) 42 mmHg 35-45 PO2 ARTERIAL (BEAKER) (test cjiy=616) 164 mmHg 80-90 O2 SATURATION ARTERIAL (BEAKER) (test prla=311) 99.0 % 96.0-97.0 HCO3 ARTERIAL (BEAKER) (test qxtk=816) 22 mmol/L 21-29 BASE EXCESS ARTERIAL (BEAKER) (test rkdt=256) -4.1 mmol/L -2.0-3.0 PATIENT TEMPERATURE (BEAKER) (test yptf=2569) 35.5 C FIO2 (BEAKER) (test zhdq=9860) 100.0 % GLUCOSE-STAT [id number] 11:21:00 Test Item Value Reference Range Comments GLUCOSE RANDOM (BEAKER) (test qrvj=951) 195 mg/dL 70-110 HGB/HCT (H&H) - STAT [id number] 11:21:00 Test Item Value Reference Range Comments HEMOGLOBIN (BEAKER) (test nufe=678) 11.3 g/dL 13.0-16.8 HEMATOCRIT (BEAKER) (test ayzo=393) 33.0 % 40.0-50.0 CALCIUM, [id number] 11:20:00 Test Item Value Reference Range Comments CALCIUM IONIZED (BEAKER) (test eslu=562) 1.19 mmol/L 1.12-1.27 PH, BLOOD (BEAKER) (test mewv=9592) 7.31 SODIUM NA-STAT [id number] 11:18:00 Test Item Value Reference Range Comments SODIUM (BEAKER) (test hmbh=975) 135 meq/L 135-148 POTASSIUM-STAT [id number] 11:18:00 Test Item Value Reference Range Comments POTASSIUM (BEAKER) (test tokd=361) 4.4 meq/L 3.6-5.5 [id number] 11:14:00 Test Item Value Reference Range Comments FIBRINOGEN LEVEL (BEAKER) (test anyo=045) 230 mg/dl 225-434 [id number] 11:14:00 Test Item Value Reference Range Comments PARTIAL THROMBOPLASTIN TIME (BEAKER) (test 41.3 seconds 22.5-36.0 wjxp=872) PROTHROMBIN [id number] 11:13:00 Test Item Value Reference Range Comments PROTIME (BEAKER) (test lptr=068) 19.8 seconds 11.7-14.7 INR (BEAKER) (test fkdd=224) 1.8 <=5.9 RECOMMENDED COUMADIN/WARFARIN INR THERAPY RANGESSTANDARD DOSE: 2.0 - 3.0 Includes: PROPHYLAXIS forvenous thrombosis, systemic embolization; TREATMENT for venous thrombosis and/or pulmonary embolus.HIGH RISK: Target INR is 2.5-3.5 for patients with mechanical heart valves.PLATELET [id number] 10:56:00 Test Item Value Reference Range Comments PLATELET COUNT (BEAKER) (test aheo=035) 84 K/CU MM 150-450 BLOOD GAS, [id number] 10:44:00 Test Item Value Reference Range Comments PH ARTERIAL (BEAKER) (test izqw=290) 7.34 7.35-7.45 PCO2 ARTERIAL (BEAKER) (test cjzy=897) 44 mmHg 35-45 PO2 ARTERIAL (BEAKER) (test awdz=972) 164 mmHg 80-90 O2 SATURATION ARTERIAL (BEAKER) (test qayx=917) 99.0 % 96.0-97.0 HCO3 ARTERIAL (BEAKER) (test djin=527) 23 mmol/L 21-29 BASE EXCESS ARTERIAL (BEAKER) (test txvp=121) -2.9 mmol/L -2.0-3.0 PATIENT TEMPERATURE (BEAKER) (test zaas=8694) 36.0 C FIO2 (BEAKER) (test bwet=7259) 100.0 % SODIUM NA-STAT [id number] 10:44:00 Test Item Value Reference Range Comments SODIUM (BEAKER) (test mpii=380) 134 meq/L 135-148 GLUCOSE-STAT [id number] 10:44:00 Test Item Value Reference Range Comments GLUCOSE RANDOM (BEAKER) (test dldz=035) 232 mg/dL 70-110 HGB/HCT (H&H) - STAT [id number] 10:44:00 Test Item Value Reference Range Comments HEMOGLOBIN (BEAKER) (test hlxl=512) 8.9 g/dL 13.0-16.8 HEMATOCRIT (BEAKER) (test clkw=486) 26.0 % 40.0-50.0 CALCIUM, [id number] 10:44:00 Test Item Value Reference Range Comments CALCIUM IONIZED (BEAKER) (test pkrt=788) 1.05 mmol/L 1.12-1.27 PH, BLOOD (BEAKER) (test ubhk=3632) 7.32 POTASSIUM-STAT [id number] 10:43:00 Test Item Value Reference Range Comments POTASSIUM (BEAKER) (test ruit=100) 5.3 meq/L 3.6-5.5 POTASSIUM-STAT [id number] 10:16:00 Test Item Value Reference Range Comments POTASSIUM (BEAKER) (test eqws=847) 6.8 meq/L 3.6-5.5 HGB/HCT (H&H) - STAT [id number] 10:12:00 Test Item Value Reference Range Comments HEMOGLOBIN (BEAKER) (test cjev=553) 8.1 g/dL 13.0-16.8 HEMATOCRIT (BEAKER) (test gpaw=726) 24.0 % 40.0-50.0 BLOOD GAS, [id number] 10:11:00 Test Item Value Reference Range Comments PH ARTERIAL (BEAKER) (test ekry=147) 7.41 7.35-7.45 PCO2 ARTERIAL (BEAKER) (test cpel=039) 37 mmHg 35-45 PO2 ARTERIAL (BEAKER) (test ykfw=864) 284 mmHg 80-90 O2 SATURATION ARTERIAL (BEAKER) (test zywn=276) 99.7 % 96.0-97.0 HCO3 ARTERIAL (BEAKER) (test hqng=740) 24 mmol/L 21-29 BASE EXCESS ARTERIAL (BEAKER) (test aswg=474) -1.1 mmol/L -2.0-3.0 PATIENT TEMPERATURE (BEAKER) (test nrxr=8380) 35.5 C FIO2 (BEAKER) (test kkji=9914) 70.0 % GLUCOSE-STAT [id number] 10:11:00 Test Item Value Reference Range Comments GLUCOSE RANDOM (BEAKER) (test zjph=650) 236 mg/dL 70-110 SODIUM NA-STAT [id number] 10:11:00 Test Item Value Reference Range Comments SODIUM (BEAKER) (test haax=826) 131 meq/L 135-148 BLOOD GAS, [id number] 09:44:00 Test Item Value Reference Range Comments PH ARTERIAL (BEAKER) (test thyu=019) 7.41 7.35-7.45 PCO2 ARTERIAL (BEAKER) (test gbhp=618) 41 mmHg 35-45 PO2 ARTERIAL (BEAKER) (test iqwt=774) 282 mmHg 80-90 O2 SATURATION ARTERIAL (BEAKER) (test zane=004) 99.7 % 96.0-97.0 HCO3 ARTERIAL (BEAKER) (test uole=787) 27 mmol/L 21-29 BASE EXCESS ARTERIAL (BEAKER) (test rhtk=499) 0.4 mmol/L -2.0-3.0 PATIENT TEMPERATURE (BEAKER) (test oqgz=7007) 30.0 C FIO2 (BEAKER) (test ilsa=2479) 70.0 % SODIUM NA-STAT [id number] 09:44:00 Test Item Value Reference Range Comments SODIUM (BEAKER) (test nxnn=442) 133 meq/L 135-148 POTASSIUM-STAT [id number] 09:44:00 Test Item Value Reference Range Comments POTASSIUM (BEAKER) (test bgzc=116) 5.9 meq/L 3.6-5.5 GLUCOSE-STAT [id number] 09:44:00 Test Item Value Reference Range Comments GLUCOSE RANDOM (BEAKER) (test fgiq=058) 204 mg/dL 70-110 HGB/HCT (H&H) - STAT [id number] 09:44:00 Test Item Value Reference Range Comments HEMOGLOBIN (BEAKER) (test kuoz=057) 8.2 g/dL 13.0-16.8 HEMATOCRIT (BEAKER) (test duex=023) 24.0 % 40.0-50.0 SODIUM NA-STAT [id number] 09:16:00 Test Item Value Reference Range Comments SODIUM (BEAKER) (test hjel=326) 132 meq/L 135-148 POTASSIUM-STAT [id number] 09:16:00 Test Item Value Reference Range Comments POTASSIUM (BEAKER) (test fgne=120) 5.6 meq/L 3.6-5.5 HGB/HCT (H&H) - STAT [id number] 09:16:00 Test Item Value Reference Range Comments HEMOGLOBIN (BEAKER) (test roil=190) 8.1 g/dL 13.0-16.8 HEMATOCRIT (BEAKER) (test iqjc=341) 24.0 % 40.0-50.0 BLOOD GAS, [id number] 09:15:00 Test Item Value Reference Range Comments PH ARTERIAL (BEAKER) (test fcmm=866) 7.41 7.35-7.45 PCO2 ARTERIAL (BEAKER) (test rgen=004) 35 mmHg 35-45 PO2 ARTERIAL (BEAKER) (test rsmo=688) 375 mmHg 80-90 O2 SATURATION ARTERIAL (BEAKER) (test uhkz=139) 99.8 % 96.0-97.0 HCO3 ARTERIAL (BEAKER) (test yrbk=492) 24 mmol/L 21-29 BASE EXCESS ARTERIAL (BEAKER) (test rtuh=171) -2.5 mmol/L -2.0-3.0 PATIENT TEMPERATURE (BEAKER) (test hyjg=8503) 30.0 C FIO2 (BEAKER) (test otmg=0064) 80.0 % GLUCOSE-STAT [id number] 09:15:00 Test Item Value Reference Range Comments GLUCOSE RANDOM (BEAKER) (test mjep=278) 207 mg/dL 70-110 [id number] 08:51:00 Test Item Value Reference Range Comments ACTIVATED CLOTTING TIME 577 sec TESTED AT [facility] [address] [facility] (BEAKER) (test agxj=253) [facility] [address] BLOOD GAS, [id number] 08:20:00 Test Item Value Reference Range Comments PH ARTERIAL (BEAKER) (test ptsd=804) 7.42 7.35-7.45 PCO2 ARTERIAL (BEAKER) (test jnfu=244) 42 mmHg 35-45 PO2 ARTERIAL (BEAKER) (test oikk=966) 397 mmHg 80-90 O2 SATURATION ARTERIAL (BEAKER) (test bdyp=249) 99.8 % 96.0-97.0 HCO3 ARTERIAL (BEAKER) (test yusk=610) 27 mmol/L 21-29 BASE EXCESS ARTERIAL (BEAKER) (test iqjh=077) 1.7 mmol/L -2.0-3.0 PATIENT TEMPERATURE (BEAKER) (test asaq=6800) 35.7 C FIO2 (BEAKER) (test qwub=3842) 100.0 % GLUCOSE-STAT [id number] 08:20:00 Test Item Value Reference Range Comments GLUCOSE RANDOM (BEAKER) (test rcit=166) 132 mg/dL 70-110 SODIUM NA-STAT [id number] 08:19:00 Test Item Value Reference Range Comments SODIUM (BEAKER) (test hoab=687) 138 meq/L 135-148 POTASSIUM-STAT [id number] 08:19:00 Test Item Value Reference Range Comments POTASSIUM (BEAKER) (test pdon=216) 3.8 meq/L 3.6-5.5 HGB/HCT (H&H) - STAT [id number] 08:19:00 Test Item Value Reference Range Comments HEMOGLOBIN (BEAKER) (test yrhs=113) 14.2 g/dL 13.0-16.8 HEMATOCRIT (BEAKER) (test xrhu=087) 42.0 % 40.0-50.0 POCT-GLUCOSE [id number] 06:27:00 Test Item Value Reference Range Comments POC-GLUCOSE METER (BEAKER) 130 mg/dL 70-110 TESTED AT [facility] [address] [place] [address] (test aklg=7716) [facility] [address] [address], CHEST, WITHOUT [id number] 17:18:00preop AVR ACB assess for calcification aortaAddendum BeginsREPORT STATUS:A Addendum: I agree with the previously described non vascular findings. Signed: Kai Hightower MDReport Verified Date/Time: 07/09/2018 17:18:52 Reading Location: [place] [address] Angio Body Reading RoomAddendum EndsFINAL REPORT CT of the chest, without contrast, 09 Jul 2018 INDICATION: This is a 78 year old male presents for preoperative assessment. This study is performed in an attempt to avoid an invasive procedure. TECHNIQUE: Spiral acquisition without intravenous contrast administration using a [place] CT scanner. Images were obtained without the dynamic passage of intravenous contrast material. Multi-planar 3-D volume-rendering reconstruction was performed using an independent workstation interactively by the interpreting physician. Please refer to the contrast sheet scanned in the EPIC system for the amount and route of contrast given. This exam was performed according to our departmental dose-optimisation programme, which includes automated exposure control, adjustment of the mA and/or kV according to patient size and/or use of iterative reconstruction technique. Dose modulation, iterative reconstruction, and/orweight based adjustment of the mA/kV was utilized to reduce the radiation dose to as low as reasonably achievable. FINDINGS: VASCULAR: The pericardium has normal appearance. No pericardial effusion isidentified. The central pulmonary artery is normal in calibre. Assessment of the heart is limited without contrast administration. The left ventricle appears to be normal in size. Left atrial enlargement is identified. No obvious pericardial effusion is seen. Diffuse calcification is seen in the left main coronary artery, LAD, RCA, and the left circumflex system. Significant aortic valvular calcification is identified. Scattered calcification is seen at the sinotubular junction and ascending thoracic aorta. Mild to moderate calcification is seen in transverse arch, and descending thoracic aorta. Atthe juncture of the transverse arch/ proximal descending thoracic aorta, it is mildly tortuous. Minimal ectasia is seen in the mid ascending thoracic aorta. Quantitative dimensions of the aorta are as follows: 3.2 cm at the sinuses of Valsalva (the sino-tubular junction is preserved); 2.9 cm at the proximal ascending thoracic aorta; 3.9 x 3.9 cm at the mid ascending aorta; 3.3 cm at the distal ascending aorta; 2.8 cm at the mid transverse arch; 3.1 cm at the proximal descending aorta; 2.9 cm cm at the mid descending aorta; 2.9 cm at the diaphragmatic hiatus. NON-VASCULAR: The visualised thyroid gland appears unremarkable. The chest wall and mediastinum appear normal. No significant adenopathy is identified in the mediastinum. No prior sternotomy is identified. Calcified lymph nodes identified inthe left hilum indicating prior granulomatous disease. Debris is identified in the right lateral aspect of the trachea, for example image 67. In the lung windows, no endobronchial lesion is seen, and no pleural effusion is identified. Calcified nodule is identified in the left lung, for example image 102 indicating prior granulomatous disease. Some subsegmental atelectatic changes are seen, for example in the medial aspect of the left lower lobe. Overall, no suspicious pulmonary nodule is identified. Limited images of the upper abdomen reveals no gross abnormality. Small gallstone is seen in the gallbladder with no wall thickening identified. No acute bony pathology is seen. Some degenerative changes is noted. Conclusion: 1. There is aortic valve calcification identified. Diffuse coronary artery calcification is seen. The ascending thoracic aorta is free of calcification. Mild to moderate aspiration seen in the transverse arch and descending thoracic aorta. Assessment of the aorta is incomplete without contrast administration. Minimal ectasia seen in the mid ascending thoracic aorta measure3.9 cm in diameter and remainder of the thoracic aorta is normal in course and calibre. Quantitativedimension of the thoracic aorta are as described above. By visual estimation, the anterior margin of the ascending thoracic aorta is at least 2 cm posterior to the sternum. 2. No acute pulmonary pathology is identified. Evidence of prior granulomatous disease. 3. Other findings as described above.4. An addendum will be dictated regarding the non-vascular findings by the [facility] Radiologist. Signed: Michele Lua Verified Date/Time: 07/09/2018 14:59:04 Reading Location: [facility] P047 Cardiology MRI RAD, CHEST, 2 [id number] 14 :54:00Reason for exam:->pre opFINAL REPORT Chest, 2 views. Clinical History: pre op Comparison Study: None Findings: The heart and lungs are within normal limits. The aorta is tortuous. The pleural spaces are clear. No significant bony or soft tissue abnormalities are seen. Impression: No active cardiopulmonary disease. Signed: Luan Mcmanus Verified Date/Time: 07/09/2018 14:54:20 Reading Location: [facility] [id number] Consult Reading Room HEMOGLOBIN [id number] 14:40:00 Test Item Value Reference Range Comments HEMOGLOBIN A1C (BEAKER) (test wniw=112) 6.4 % 4.3-6.1 BASIC METABOLIC [id number] 13:47:00 Test Item Value Reference Range Comments SODIUM (BEAKER) (test 139 meq/L 136-145 nyyy=491) POTASSIUM (BEAKER) (test 4.5 meq/L 3.5-5.1 qaky=804) CHLORIDE (BEAKER) (test 103 meq/L 98-107 iysq=676) CO2 (BEAKER) (test 27 meq/L 22-29 clxj=384) BLOOD UREA NITROGEN 16 mg/dL 7-21 (BEAKER) (test ulkr=192) CREATININE (BEAKER) (test 0.87 mg/dL 0.57-1.25 zdjg=798) GLUCOSE RANDOM (BEAKER) 109 mg/dL 70-105 (test cwlb=744) CALCIUM (BEAKER) (test 9.5 mg/dL 8.4-10.2 haxo=694) EGFR (BEAKER) (test 85 mL/min/1.73 sq m ESTIMATED GFR IS NOT ebah=3882) ACCURATE CREATININE CLEARANCE IN PREDICTING GLOMERULAR FILTRATION RATE. ESTIMATED GFR IS NOT APPLICABLE FOR DIALYSIS PATIENTS. PROTHROMBIN TIME/[id number] 13:36:00 Test Item Value Reference Range Comments PROTIME (BEAKER) (test wyrh=764) 16.2 seconds 11.7-14.7 INR (BEAKER) (test yoye=532) 1.4 <=5.9 RECOMMENDED COUMADIN/WARFARIN INR THERAPY RANGESSTANDARD DOSE: 2.0 - 3.0 Includes: PROPHYLAXIS forvenous thrombosis, systemic embolization; TREATMENT for venous thrombosis and/or pulmonary embolus.HIGH RISK: Target INR is 2.5-3.5 for patients with mechanical heart valves.CBC W/PLT COUNT & AUTO [id number] 13:28:00 Test Item Value Reference Range Comments WHITE BLOOD CELL COUNT (BEAKER) (test bxxq=076) 6.1 K/ L 3.5-10.5 RED BLOOD CELL COUNT (BEAKER) (test aeuh=212) 5.27 M/ L 4.63-6.08 HEMOGLOBIN (BEAKER) (test mtvd=055) 15.6 GM/DL 13.7-17.5 HEMATOCRIT (BEAKER) (test nuze=839) 47.7 % 40.1-51.0 MEAN CORPUSCULAR VOLUME (BEAKER) (test mzcp=750) 90.5 fL 79.0-92.2 MEAN CORPUSCULAR HEMOGLOBIN (BEAKER) (test 29.6 pg 25.7-32.2 vclj=771) MEAN CORPUSCULAR HEMOGLOBIN CONC (BEAKER) (test 32.7 GM/DL 32.3-36.5 lzcw=938) RED CELL DISTRIBUTION WIDTH (BEAKER) (test 14.1 % 11.6-14.4 fnuq=612) PLATELET COUNT (BEAKER) (test esxj=233) 203 K/CU MM 150-450 MEAN PLATELET VOLUME (BEAKER) (test bvgw=316) 10.5 fL 9.4-12.4 NUCLEATED RED BLOOD CELLS (BEAKER) (test 0 /100 WBC 0-0 jtck=477) NEUTROPHILS RELATIVE PERCENT (BEAKER) (test 57 % qllh=230) LYMPHOCYTES RELATIVE PERCENT (BEAKER) (test 25 % ljiw=717) MONOCYTES RELATIVE PERCENT (BEAKER) (test 9 % gklv=997) EOSINOPHILS RELATIVE PERCENT (BEAKER) (test 8 % qpen=502) BASOPHILS RELATIVE PERCENT (BEAKER) (test 1 % rqgz=616) NEUTROPHILS ABSOLUTE COUNT (BEAKER) (test 3.47 K/ L 1.78-5.38 gcke=002) LYMPHOCYTES ABSOLUTE COUNT (BEAKER) (test 1.51 K/ L 1.32-3.57 uprl=600) MONOCYTES ABSOLUTE COUNT (BEAKER) (test 0.56 K/ L 0.30-0.82 ajfg=576) EOSINOPHILS ABSOLUTE COUNT (BEAKER) (test 0.46 K/ L 0.04-0.54 uogi=927) BASOPHILS ABSOLUTE COUNT (BEAKER) (test 0.06 K/ L 0.01-0.08 suxj=191) IMMATURE GRANULOCYTES-RELATIVE PERCENT (BEAKER) 0 % 0-1 (test rule=4564)
--- NOTE | 2019-03-01 13:01 | RAD REPORT ---
EXAM DESCRIPTION: CT - Head Brain Wo Cont - 03/01/2019 12:54 pm CLINICAL HISTORY: Syncope COMPARISON: April 2007 TECHNIQUE: Axial 5 mm thick images of the head were obtained without IV contrast. All CT scans are performed using dose optimization technique as appropriate and may include automated exposure control or mA/KV adjustment according to patient size. FINDINGS: No intracranial hemorrhage, mass, edema or shift of mid-line structures. No acute infarcti on changes seen. No cortical edema or sulcal effacement. Atrophy and chronic ischemic changes are pre sent. Findings are mild to moderate for age. Findings have progressed from 2007. Ventricles are in pr oportion to volume loss. Arterial and physiologic calcifications are present. Mastoid air cells and visualized portions of the paranasal sinuses are clear. No acute bony findings. IMPRESSION: No hemorrhage, mass or acute intracranial finding. Atrophy and chronic ischemic changes are present progressive from 2007. Findings are tedc-ba-bsewygza . Ventricles are in proportion to the amount of volume loss.
[2019-03-01 13:10] LABS: Absolute Lymphocytes (CBC) 1.2 K/uL (0.7-4.9); Basophils % 1.1 % (0-1.3); Lymphocytes % 19.5 % (15.3-44.8); MPV 8.8 fL (7.6-11.3); RBC Red Blood Cell Count 5.29 M/uL (4.33-5.43)
[2019-03-01 13:12] LABS: Protime INR 1.38
[2019-03-01 13:23] LABS: ALT/SGPT 26 U/L (12-78); AST/SGOT 26 U/L (15-37); Albumin 3.7 g/dL (3.4-5.0); Alkaline Phosphatase 140 U/L (45-117); BUN Blood Urea Nitrogen 19 mg/dL (7-18); Bicarbonate 29 mmol/L (21-32); Bilirubin Direct 0.1 mg/dL (0-0.2); Bilirubin Total 0.4 mg/dL (0.2-1.0); CKMB Creatine Kinase MB < 1.0 ng/mL (0.3-3.6); Creatine Phosphokinase 63 U/L (39-308); Glucose Level 108 mg/dL (74-106); Lipase 311 U/L (73-393); Magnesium 2.3 mg/dL (1.8-2.4); Potassium 4.3 mmol/L (3.5-5.1); Protein, Total 8.5 g/dL (6.4-8.2); Sodium Level 141 mmol/L (136-145); Troponin (Emerg Dept Use Only) < 0.02 ng/mL (0.0-0.045)
--- NOTE | 2019-03-01 13:46 | ER ---
Nurse's Notes [facility] Name: Franklin Castro Age: 78 yrs Sex: Male : 1940 Arrival Date: 03/01/2019 Time: 12:38 Bed 8 Private MD: Diagnosis: Syncope and collapse Presentation: 03/01 12:39 Presenting complaint: EMS states: Near syncope today while standing and reaching up ph into cabinet, states " I knew I was about to pass out and could feel myself falling." Also reports having syncopal episode yesterday after standing and walking approx 10 steps, states that he does not remember event, woke up on ground, evaluated by EMS yesterday but refused transport because symptoms had improved, hx of valve replacement, a-fib, and cardiac stents, denies pain or injury. Transition of care: patient was not received from another setting of care. Onset of symptoms was March 01, 2019. Risk Assessment: Do you want to hurt yourself or someone else? Patient reports no desire to harm self or others. Initial Sepsis Screen: Does the patient meet any 2 criteria? No. Patient's initial sepsis screen is negative. Does the patient have a suspected source of infection? No. Patient's initial sepsis screen is negative. Care prior to arrival: Glucose check: 165. 12:39 Method Of Arrival: EMS: [facility] 12:39 Acuity: JIMY 3 ph Historical: - Allergies: 12:45 No Known Allergies; ph - Home Meds: 13:12 Xarelto 10 mg Oral tab 1 tab once daily [Active]; metformin 500 mg Oral Tb24 1 tab once ph daily [Active]; lisinopril 10 mg Oral tab 1 tab once daily [Active]; duloxetine 20 mg oral cpDR 1 cap daily [Active]; donepezil 10 mg Oral tab 1 tab once daily [Active]; aspirin 81 mg Oral TbEC 1 tab once daily [Active]; atorvastatin 20 mg oral tab 1 tab once daily [Active]; metoprolol tartrate 50 mg Oral tab 1 tab 2 times per day [Active]; levothyroxine 125 mcg tab 1 tab once daily [Active]; Nitrostat 0.4 mg SL subl [Active]; amiodarone 200 mg Oral tab 1 tab 2 times per day [Active]; tramadol 50 mg Oral tab 1 tab every 4-6 hours [Active]; - PMHx: 12:45 Dementia; Diabetes - NIDDM; Hypertension; Hypothyroidism; throat cancer; ph - PSHx: 12:45 Hernia repair; Tonsillectomy; left hip replacement; Vasectomy; Valve replacement; ph - Immunization history:: Adult Immunizations unknown. - Social history:: Smoking status: Patient/guardian denies using tobacco, Patient/guardian denies using alcohol, street drugs, The patient lives with family. - Ebola Screening: : No symptoms or risks identified at this time. - Family history:: not pertinent. Screenin:48 Abuse screen: Denies threats or abuse. Denies injuries from another. Nutritional ph screening: No deficits noted. Tuberculosis screening: No symptoms or risk factors identified. Fall Risk None identified. Assessment: 12:48 General: Appears in no apparent distress. comfortable, well groomed, Behavior is calm, ph cooperative, appropriate for age, Denies fever, feeling ill. Pain: Complains of pain in back of neck Pain currently is 2 out of 10 on a pain scale. Quality of pain is described as aching. Neuro: Level of Consciousness is awake, alert, obeys commands, Oriented to person, place, time, situation, Automation Operator are equal bilaterally Moves all extremities. Full function Speech is normal, Reports a syncopal episode Denies weakness blurred vision dizziness. Cardiovascular: Reports lightheadedness, syncope, Denies chest pain, nausea, palpitations, shortness of breath, Capillary refill < 3 seconds in bilateral fingers Rhythm is sinus rhythm. Respiratory: Airway is patent Respiratory effort is even, unlabored, Respiratory pattern is regular, symmetrical. GI: Patient currently denies abdominal pain, diarrhea, nausea, vomiting. Derm: Skin is intact, is healthy with good turgor, Skin is pink, warm \\T\\ dry. Musculoskeletal: Circulation, motion, and sensation intact. Range of motion: intact in all extremities. 13:50 Reassessment: Patient appears in no apparent distress at this time. Patient and/or ph family updated on plan of care and expected duration. Pain level reassessed. Patient is alert, oriented x 3, equal unlabored respirations, skin warm/dry/pink. Patient denies pain at this time. 14:51 Reassessment: Patient appears in no apparent distress at this time. Patient and/or ph family updated on plan of care and expected duration. Pain level reassessed. Patient is alert, oriented x 3, equal unlabored respirations, skin warm/dry/pink. 16:26 Reassessment: Patient appears in no apparent distress at this time. Patient and/or ph family updated on plan of care and expected duration. Pain level reassessed. Patient is alert, oriented x 3, equal unlabored respirations, skin warm/dry/pink. Attempted to call report to second floor, no nurse assigned to room at this time, nurse will call back when available. 16:34 Reassessment: Attempted to call report, nurse to call back. sv Vital Signs: 12:46 BP 134 / 92; Pulse 78; Resp 14; Temp 98.7; Pulse Ox 96% on R/A; Weight 99.79 kg; Height ph 5 ft. 9 in. (175.26 cm); Pain 0/10; 13:45 BP 146 / 81; Pulse 72; Resp 18; Pulse Ox 97% on R/A; ph 14:52 BP 148 / 91; Pulse 68; Resp 16; Pulse Ox 98% on R/A; ph 12:46 Body Mass Index 32.49 (99.79 kg, 175.26 cm) ph ED Course: 12:38 Patient arrived in ED. ph 12:40 Lima Lester MD is Attending Physician. ma2 12:43 Triage completed. ph 12:48 Arm band placed on Patient placed in an exam room, on a stretcher, on panel monitor, ph on pulse oximetry. 12:48 Patient has correct armband on for positive identification. Placed in gown. Bed in low ph position. Call light in reach. Side rails up X 1. panel monitor on. Pulse ox on. NIBP on. Door closed. Noise minimized. Warm blanket given. 12:49 EKG done, by instructor technical training. reviewed by Lima Lester MD. at1 12:51 Initial lab(s) drawn, by nm, sent to lab. Inserted saline lock: 20 gauge in right dh3 antecubital area, using aseptic technique. Blood collected. 12:53 Behzad Martines, RN is Primary Nurse. sg 12:54 CT completed. Patient tolerated procedure well. Patient moved to CT via stretcher. Patient moved back from CT. 12:54 CT Head Brain wo Cont In Process Unspecified. EDMS 13:45 Kevin Jones MD is Hospitalizing Provider. ma2 16:37 No provider procedures requiring assistance completed. Patient admitted, IV remains in sv place. intact. Administered Medications: No medications were administered Outcome: 13:45 Decision to Hospitalize by Provider. ma2 16:37 Admitted to Tele accompanied by tech, via stretcher, room 215, with chart, Report sv called to Christopher CACERES 16:37 Condition: stable 16:37 Instructed on the need for admit. 16:43 Patient left the ED. Signatures: Dispatcher [employer] EDWI Rafaela Welsh, Behzad Velazquez RN RN MORRIS Radha Andrews, kitchenwhere maker EKG Tat1 Rebecca Rivas RN RN Shirley Kong, Armida dh3 Lima Lester MD MD ma2
--- NOTE | 2019-03-01 13:47 | EDPHYS ---
Physician Documentation [facility] Name: Franklin Castro Age: 78 yrs Sex: Male : 1940 Arrival Date: 03/01/2019 Time: 12:38 Bed 8 Private MD: ED Physician Lima Lester HPI: 03/01 13:43 This 78 yrs old Male presents to ER via EMS with complaints of Syncope. ma2 13:43 The patient has experienced syncope. Onset: The symptoms/episode began/occurred ma2 suddenly, 1 day(s) ago. Duration: This was a single episode, The patient has had multiple episodes. Context: the episode(s) was witnessed, by family. Associated signs and symptoms: Pertinent negatives: ataxia, chest pain, diarrhea, dizziness. Current symptoms: Currently, the patient is not experiencing any symptoms. The patient has not experienced similar symptoms in the past. Historical: - Allergies: 12:45 No Known Allergies; ph - Home Meds: 13:12 Xarelto 10 mg Oral tab 1 tab once daily [Active]; metformin 500 mg Oral Tb24 1 tab once ph daily [Active]; lisinopril 10 mg Oral tab 1 tab once daily [Active]; duloxetine 20 mg oral cpDR 1 cap daily [Active]; donepezil 10 mg Oral tab 1 tab once daily [Active]; aspirin 81 mg Oral TbEC 1 tab once daily [Active]; atorvastatin 20 mg oral tab 1 tab once daily [Active]; metoprolol tartrate 50 mg Oral tab 1 tab 2 times per day [Active]; levothyroxine 125 mcg tab 1 tab once daily [Active]; Nitrostat 0.4 mg SL subl [Active]; amiodarone 200 mg Oral tab 1 tab 2 times per day [Active]; tramadol 50 mg Oral tab 1 tab every 4-6 hours [Active]; - PMHx: 12:45 Dementia; Diabetes - NIDDM; Hypertension; Hypothyroidism; throat cancer; ph - PSHx: 12:45 Hernia repair; Tonsillectomy; left hip replacement; Vasectomy; Valve replacement; ph - Immunization history:: Adult Immunizations unknown. - Social history:: Smoking status: Patient/guardian denies using tobacco, Patient/guardian denies using alcohol, street drugs, The patient lives with family. - Ebola Screening: : No symptoms or risks identified at this time. - Family history:: not pertinent. ROS: 13:43 Constitutional: Negative for fever, chills, and weight loss. ma2 13:43 All other systems are negative. Exam: 13:43 Abdomen/GI: Exam negative for ma2 13:43 Constitutional: This is a well developed, well nourished patient who is awake, alert, and in no acute distress. Head/Face: Normocephalic, atraumatic. Eyes: Pupils equal round and reactive to light, extra-ocular motions intact. Lids and lashes normal. Conjunctiva and sclera are non-icteric and not injected. Cornea within normal limits. Periorbital areas with no swelling, redness, or edema. ENT: Nares patent. No nasal discharge, no septal abnormalities noted. Tympanic membranes are normal and external auditory canals are clear. Oropharynx with no redness, swelling, or masses, exudates, or evidence of obstruction, uvula midline. Mucous membranes moist. Neck: Trachea midline, no thyromegaly or masses palpated, and no cervical lymphadenopathy. Supple, full range of motion without nuchal rigidity, or vertebral point tenderness. No Meningismus. Chest/axilla: Normal chest wall appearance and motion. Nontender with no deformity. No lesions are appreciated. Cardiovascular: Regular rate and rhythm with a normal S1 and S2. No gallops, murmurs, or rubs. Normal PMI, no JVD. No pulse deficits. Respiratory: Lungs have equal breath sounds bilaterally, clear to auscultation and percussion. No rales, rhonchi or wheezes noted. No increased work of breathing, no retractions or nasal flaring. Abdomen/GI: Soft, non-tender, with normal bowel sounds. No distension or tympany. No guarding or rebound. No evidence of tenderness throughout. MS/ Extremity: Pulses equal, no cyanosis. Neurovascular intact. Full, normal range of motion. Neuro: Awake and alert, GCS 15, oriented to person, place, time, and situation. Cranial nerves II-XII grossly intact. Motor strength 5/5 in all extremities. Sensory grossly intact. Cerebellar exam normal. Normal gait. Vital Signs: 12:46 BP 134 / 92; Pulse 78; Resp 14; Temp 98.7; Pulse Ox 96% on R/A; Weight 99.79 kg; Height ph 5 ft. 9 in. (175.26 cm); Pain 0/10; 13:45 BP 146 / 81; Pulse 72; Resp 18; Pulse Ox 97% on R/A; ph 14:52 BP 148 / 91; Pulse 68; Resp 16; Pulse Ox 98% on R/A; ph 12:46 Body Mass Index 32.49 (99.79 kg, 175.26 cm) ph MDM: 12:40 Patient medically screened. ma2 13:43 Differential Diagnosis: emotional response, idiopathic syncope, vasovagal episode, had ma2 Aortic v replaced 3 months ago . Data reviewed: vital signs, nurses notes. Counseling: I had a detailed discussion with the patient and/or guardian regarding: the historical points, exam findings, and any diagnostic results supporting the discharge/admit diagnosis, the presence of at least one elevated blood pressure reading (>120/80) during this emergency department visit, the need for further work-up and treatment in the hospital. Response to treatment: the patient's symptoms have mildly improved after treatment. 13:57 ED course: dr. gordon and kylie called . ma2 03/01 12:41 Order name: Basic Metabolic Panel; Complete Time: 13:25 ma2 03/01 12:41 Order name: CBC with Diff; Complete Time: 13:25 ma2 03/01 12:41 Order name: Ckmb; Complete Time: 13:25 ma2 03/01 12:41 Order name: CPK; Complete Time: 13:25 ma2 03/01 12:41 Order name: Hepatic Function; Complete Time: 13:25 ma2 03/01 12:41 Order name: Lipase; Complete Time: 13:25 ma2 03/01 12:41 Order name: Magnesium; Complete Time: 13:25 ma2 03/01 12:41 Order name: Protime (+inr); Complete Time: 13:25 ma2 03/01 12:41 Order name: Ptt, Activated; Complete Time: 13:25 ma2 03/01 12:41 Order name: Troponin (emerg Dept Use Only); Complete Time: 13:25 ma2 03/01 13:57 Order name: Basic Metabolic Panel EDMS 03/01 13:57 Order name: Basic Metabolic Panel EDMS 03/01 13:57 Order name: CBC with Automated Diff EDMS 03/01 13:57 Order name: CBC with Automated Diff EDMS 03/01 12:41 Order name: CT Head Brain wo Cont; Complete Time: 13:25 ma2 03/01 12:41 Order name: EKG; Complete Time: 12:42 ma2 03/01 12:41 Order name: Cardiac monitoring; Complete Time: 12:50 ma2 03/01 12:41 Order name: EKG - Nurse/Tech; Complete Time: 12:50 ma2 03/01 12:41 Order name: IV Saline Lock; Complete Time: 12:57 ma2 03/01 12:41 Order name: Labs collected and sent; Complete Time: 12:57 ma2 03/01 12:41 Order name: NPO; Complete Time: 12:50 ma2 03/01 13:51 Order name: Echo with Doppler EDMS 03/01 13:57 Order name: Consistent Carb (ADA) [address] EDMS 03/01 13:57 Order name: EKG Electrocardiogram EDMS 03/01 13:57 Order name: EKG Electrocardiogram EDMS 03/01 13:57 Order name: EKG Electrocardiogram EDMS 03/01 13:57 Order name: EKG Electrocardiogram EDMS 03/01 13:57 Order name: Troponin I EDMS 03/01 13:57 Order name: Troponin I EDMS 03/01 13:57 Order name: Troponin I EDMS 03/01 12:41 Order name: O2 Per Protocol; Complete Time: 12:50 ma2 03/01 12:41 Order name: O2 Sat Monitoring; Complete Time: 12:51 ma2 Administered Medications: No medications were administered Disposition: 03/01/19 13:45 Hospitalization ordered by Kevin Jones for Observation. Preliminary diagnosis is Syncope and collapse. - Bed requested for Telemetry/MedSurg (observation). - Status is Observation. sv - Condition is Stable. - Problem is new. - Symptoms are unchanged. UTI on Admission? No Signatures: Dispatcher [employer] EDMS Citlaly Chiu Stephanie, RN RN sv Hall, Patricia, RN RN Lima Lester MD MD ma2 Corrections: (The following items were deleted from the chart) 15: 13:45 Hospitalization Ordered by Kevin Jones MD for Observation. Preliminary diagnosis bd is Syncope and collapse. Bed requested for Telemetry/MedSurg (observation). Status is Observation. Condition is Stable. Problem is new. Symptoms are unchanged. UTI on Admission? No. ma2 16:43 15:23 03/01/2019 13:45 Hospitalization Ordered by Kevin Jones MD for Observation. sv Preliminary diagnosis is Syncope and collapse. Bed requested for Telemetry/MedSurg (observation). Status is Observation. Condition is Stable. Problem is new. Symptoms are unchanged. UTI on Admission? No. bd
[2019-03-01 17:25] VITALS: BMI 33.0
[2019-03-01] MEDS ORDERED: RIVAROXABAN 20 MG TABLET PO SCH (19:00)
[2019-03-01] MEDS: METOPROLOL TAR 25 MG TAB PO SCH (20:19)
--- NOTE | 2019-03-01 20:47 | EKG ---
Test Date: 2019-03-01 Test Time: 12:46:54 Hydroelectric Plant Electrician: KINSEY MEASUREMENT RESULTS: Intervals: Rate: 76 VT: 184 QRSD: 88 QT: 382 QTc: 429 [place]: P: 43 VT: 184 QRS: 48 T: 80 INTERPRETIVE STATEMENTS: Normal sinus rhythm Possible Left atrial enlargement Inferior infarct, age undetermined Anterolateral infarct, age undetermined Abnormal ECG Compared to ECG 05/27/2018 08:27:46 No significant changes Electronically Signed On 03-01-19 20:46:40 MANAGEMENT REP by Jhoan Miranda
[2019-03-01] MEDS ORDERED: ATORVASTATIN 20 MG TAB PO SCH (21:00)
[2019-03-01 21:26] VITALS: O2SAT 93
[2019-03-02 00:22] LABS: Urine Appearance CLEAR; Urine Bilirubin NEGATIVE (NEG); Urine Blood NEGATIVE (NEG); Urine Color YELLOW; Urine Glucose TRACE (NEG); Urine Protein NEGATIVE (NEG); Urine Specific Gravity 1.025 (1.005-1.030); Urine pH 6.5 (5.0-7.0)
[2019-03-02 00:49] LABS: Urine Bacteria <20 /HPF (NONE SEEN); Urine Culture Reflex Order NOT NEEDED; Urine RBC <5 /HPF (NONE SEEN)
[2019-03-02 04:55] LABS: Absolute Lymphocytes (CBC) 1.9 K/uL (0.7-4.9); Basophils % 0.7 % (0-1.3); Hematocrit 38.6 % (39.6-49.0); MPV 8.9 fL (7.6-11.3); RBC Red Blood Cell Count 4.76 M/uL (4.33-5.43)
[2019-03-02] MEDS ORDERED: LEVOTHYROXINE SOD 0.125 MG TAB PO SCH (06:00)
[2019-03-02] MEDS ORDERED: METFORMIN HCL 500 MG TAB PO SCH (09:00)
[2019-03-02] MEDS ORDERED: lisinopriL 10 MG TAB PO SCH (09:00)
[2019-03-02] MEDS ORDERED: ASPIRIN EC 81 MG TAB PO SCH (09:00)
[2019-03-02] MEDS ORDERED: DULOXETINE 20 MG CAP PO SCH (09:00)
[2019-03-02] MEDS ORDERED: DONEPEZIL HCL 5 MG TAB PO SCH (09:00)
[2019-03-02] MEDS: METOPROLOL TAR 25 MG TAB PO SCH (11:52)
--- NOTE | 2019-03-02 12:13 | CON ---
Admitted to Dr. Jones on 03/01/2019 because of syncope. History Of Present Illness: Mr. Poole is 78, was just seen in the office recently. He had a hist ory of aortic valve replacement, bioprosthetic, with a CAVAZOS to the LAD by Dr. Talavera in July of 2018. Had some mild dementia, atrial fibrillation that has resolved, diabetes, hypertension, history of t hroat cancer, and dyslipidemia. Had 2 episodes of sudden syncope while he was standing up. No sympt oms before or after the syncope. Denied chest pain, nausea, vomiting, diaphoresis, PND, orthopnea, p edal edema, or palpitation. Workup in the hospital including CT of his head, laboratory evaluation, echocardiogram, all of which were normal. His atrial fibrillation was only postoperatively and he durant d gotten off the amiodarone since he remains on Xarelto. Past Medical History: As stated above. Allergies: NONE. Review of Systems: Negative. Social History: Negative. Family History: Negative. Medications: At home include lisinopril, Lopressor, Xarelto, Cymbalta, Synthroid, aspirin, Lipitor, Aricept, and Glucophage. Physical Examination: Vital Signs: Blood pressure is 150/80, was sinus rhythm, afebrile. General: No acute distress. Alert and oriented x3. HEENT: Negative. Neck: Supple with no bruit, lymphadenopathy, JVD, or thyromegaly. Chest: Clear to auscultation and percussion. Cardiac: Revealed a regular rhythm and rate. No murmurs, gallops, or rubs. Abdomen: Benign. Extremities: Revealed no clubbing, cyanosis, or edema. Skin: Dry and intact. Pulses were present distally bilaterally. Diagnostic Data: All normal. Impression And Plan: Syncope, most likely secondary to orthostatic hypotension. He certainly could have some episodes of bradycardia. I have not seen anything on telemetry so far. His echocardiogram was normal. I suggest that we stop his lisinopril and suggest that we decrease his Lopressor dose f rom 50 once a day to 25 mg once a day. I think he can go home whenever it is okay with Dr. Jones. I am going to have him do an event monitor in my office and if I do not see any atrial fibrillation, I will probably take him off Xarelto and put him on a baby aspirin. The patient can go home whenever i t is okay with Dr. Jones, but I will continue to follow him for now. GILBERTO/ALFRED Voice ID: [id number] Report ID: [id number]
--- NOTE | 2019-03-02 13:34 | PN ---
Date of Progress Note: 03/02/2019 Mr. Poole is 78, admitted with syncope. Has a history of atrial fibrillation that has resolved. Aortic valve replacement with a normal echo. Had a history of a CAVAZOS to the LAD in July 2018, along w ith his AVR. He has a history of dementia, diabetes, and hypertension. He came in with syncope. So far negative workup. Echo was normal. CTA was normal. CT of his head was normal. Laboratory eval uation was normal. He has had a carotid Doppler in my office that is normal. Overnight, he had no b radycardia, no arrhythmia, no syncope. He can go home today, off Zestril, on half a dose of Lopresso r. Continue Xarelto. I will obtain an event monitor in my office. If is negative, I will stop the Xarelto at that time. Case was discussed with Dr. Jones. Patient can go home today. GILBERTO/ALFRED Voice ID: [id number] Report ID: [id number]
[2019-03-02 14:10] VITALS: BP 168/98
[2019-03-02 14:14] VITALS: TEMP 97.1
--- NOTE | 2019-03-04 07:38 | ECHO ---
HEIGHT: 5 ft 9 in WEIGHT: 224 lb 0 oz DATE OF STUDY: 03/01/[address]: Lima Lester MD 2-DIMENSIONAL: YES M.MODE: YES DOPPLER: YES COLOR FLOW: YES TDS: PORTABLE: DEFINITY: BUBBLE STUDY: DIAGNOSIS: SYNCOPE CARDIAC HISTORY: CATHERIZATION: YES SURGERY: CAGB PROSTHETIC VALVE: AORTIC VALVE PACEMAKER: NO MEASUREMENTS (cm) DIASTOLIC (NORMALS) SYSTOLIC (NORMALS) IVSd 1.1 (0.6-1.2) LA Diam (1.9-4.0) LVEF 69% LVIDd 4.4 (3.5-5.7) LVIDs 2.7 (2.0-3.5) %FS 39% LVPWd 1.2 (0.6-1.2) Ao Diam 3.0 (2.0-3.7) 2 DIMENSIONAL ASSESSMENT: RIGHT ATRIUM: NORMAL LEFT ATRIUM: NORMAL RIGHT VENTRICLE: NORMAL LEFT VENTRICLE: NORMAL TRICUSPID VALVE: NORMAL MITRAL VALVE: NORMAL PULMONIC VALVE: NORMAL AORTIC VALVE: STATUS POST AORTIC VALVE REPLACEMENT PERICARDIAL EFFUSION: NONE AORTIC ROOT: LEFT VENTRICULAR WALL MOTION: NORMAL DOPPLER/COLOR FLOW: NORMAL COMMENTS: NORMAL LEFT VENTRICULAR SIZE AND FUNCTION. NORMAL BIOPROSTHETIC AORTIC VALVE REPLACEMENT NO AORTIC REGURGITATION. NO EFFUSION. NO WALL MOTION ABNORMALITY. TECHNOLOGIST: VANI CAIN
--- NOTE | 2019-03-04 12:19 | SS ---
Date of Discharge: 03/02/2019 Chief Complaint: Passed out. History Of Present Illness: 78-year-old male patient, who had coronary artery bypass surgery and aor tic wall replacement surgery about 6 months ago or so. He had transient atrial fibrillation as we un derstand around that time and has been on anticoagulation therapy since that time. He was on amiodar one after bypass surgery, which was discontinued by alumnae secretary over period of time. He was doing f ine until last couple of days. He had 2 episodes of syncope, 1 yesterday and 1 a day before. Patiolegario mervat says the first episode he describes as he was sitting in the chair and he got up to go to the bathr oom. He took only about 5 steps and before he could make it to the bathroom without any prior sign s ymptoms, all of a sudden he fell down on the floor and he had passed out. was there in the room . He passed out for short period of time. EMS was called. Patient came out of it and was feeling f ine back to his normal self, able to get up, move around, and had no symptoms at all. He did not com e to emergency room at that time, but he had second episode while he was walking in the house, and at this time, he did feel like he was going to faint, but had no chest pain, palpitation, shortness of breath. No other complaints and he did go down, but he is not sure if he had completely passed out d uring this second episode or not. After these 2 episodes, he came into emergency room. After he was evaluated in the ER, he was admitted to the hospital. Patient does report that he did injure back o f his head when he fell fainted. No open wound anywhere. When I saw him, he was back to his normal self. Dimension Specification Inspector, Dr. Miranda has already evaluated him and I have discussed details with him as leesa schmidt. Allergies: NO KNOWN ALLERGIES. Medications: List reviewed. Review of Systems: OVAL OR CIRCULAR GLASS CUTTER: As mentioned above. Cardiovascular: As mentioned above. All other systems reviewed and negative. Allergies: NO KNOWN ALLERGIES. Medications: List reviewed. 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 Past Surgical History: Hip replacement surgery in October 01, 2017. Prior to that had hernia repair an d tonsillectomy and this year about 6 months ago, he had aortic wall replacement, which is bioprosthe tic valve as I understand and coronary artery bypass surgery. Family History: Significant for melanoma, coronary artery disease, hypertension, diabetes mellitus. Social History: Negative for smoking and alcohol use. Prior history of smoking not at present time. Physical Examination: Vital Signs: Temperature 97.1, pulse 77, respiratory rate 17, blood pressure 168/98, oxygen saturati on 95%. Height 5 feet 9 inches, weight 224 pounds. Today, we did check his orthostatic vital signs and his supine blood pressure was 149/88, sitting blood pressure 115/78, standing blood pressure 106/ 74. General: Awake, alert, oriented, not in distress. HEENT: Head atraumatic, normocephalic. Conjunctivae nonerythematous. Sclerae white. Mouth, no thr ush or edema noted. Ears/Nose, no mass, lesion, discharge noted. Neck: Supple. No JVD, lymph nodes, bruit, thyromegaly noted. Lungs: Bilateral good equal air entry. Clear to auscultation. No rhonchi. No rales. Heart: Normal heart sounds, no murmur or gallop. Abdomen: Soft, bowel sounds normal. No guarding, rigidity, tenderness, mass, hepatosplenomegaly, dis tention, or bruit noted. Extremities: No leg edema. No calf tenderness. Skin: No rash, ulcer, cellulitis. Lymphatics: No lymph node enlargement in neck, supraclavicular, infraclavicular region. Neuro: No focal neurological deficit. Chest: Unremarkable. External Genitalia: Deferred. Rectal: Deferred. Laboratory Data: Yesterday, white count 6.1, hemoglobin 14.2, platelets 252. This morning, white co unt 6.4, hemoglobin 12.4, platelets 204. This morning, sodium 141, potassium 4, chloride 108, bicarb 29, BUN 17, creatinine 0.99, glucose 98. Troponin less than 0.02 x3. Chemistry profile yesterday w as unremarkable. Urinalysis, unremarkable. EKG, normal sinus rhythm, left atrial enlargement, infer olateral infarct age undetermined. CAT scan of the brain, negative for any acute intracranial change s present. Hospital Course: After patient was evaluated in the ER, he was admitted to the hospital and orthosta tic vitals were written in the chart. It does grow our concerns about orthostatic hypotension as we have documented and patient was made aware of this. I have advised him to use stockings to his both legs, put it on in the morning, take it off at night time, drink 50 to 60 ounces of water a day and f or him to exercise his upper and lower extremities before getting up from sitting or supine position. I have discussed details with Dr. Miranda today and yesterday and as per our discussion, we will go ahead and reduce the dose of his metoprolol from 50 mg 2 times a day to 25 mg 2 times a day, and he will continue rest of his other medications as he was taking before and all these instructions were p ersonally given to him by me. I will see him at office week after next and Dr. Miranda will place 1 week of a patient monitor, Holter monitor for him and then he will consider to discontinue his Xarelt o depending on the results. Final Diagnoses: 1.Syncope. 2.Orthostatic hypotension. 3.Paroxysmal atrial fibrillation. 4.Chronic anticoagulation therapy. 5.Coronary artery disease. 6.Mixed hyperlipidemia. 7.Type 2 diabetes mellitus. 8.Postirradiation hypothyroidism. 9.Hypertension. 10.Thyroid cancer. 11.Diverticulosis. 12.Osteoarthritis, multiple sites. NIKI/MODL Voice ID: [id number] Report ID: [id number]
== END 2019-03-02 12:30 | disposition home or self-care (01) ==
LOC: ER 12:36 → ERHOLD 13:52 → 2ND 16:38
PROVIDERS: ADMIT Internal Medicine; ATTEND Internal Medicine
DX: R55 Syncope and collapse (principal); I95.1 Orthostatic hypotension; I48.0 Paroxysmal atrial fibrillation; I25.10 Atherosclerotic heart disease of native coronary artery without angina pectoris; E78.2 Mixed hyperlipidemia; E11.9 Type 2 diabetes mellitus without complications; I10 Essential (primary) hypertension; E03.9 Hypothyroidism, unspecified; Z79.01 Long term (current) use of anticoagulants; Z85.850 Personal history of malignant neoplasm of thyroid; Z95.1 Presence of aortocoronary bypass graft; K57.90 Diverticulosis of intestine, part unspecified, without perforation or abscess without bleeding; M19.90 Unspecified osteoarthritis, unspecified site
CPT/HCPCS: 93005; 93306; 85025 ×2; 81001; 80048 ×2; 36415; 83735; 82550; 85610; 82947 ×4; 80076; 85730; 84484 ×3; 82553; 83690; 70450; 99285; G0378 ×3

== ENCOUNTER 2020-04-16 09:59 | Emergency (ER) | payer OTHER ==
--- OUTSIDE RECORDS SUMMARY | 2020-04-16 10:00 | XMS REPORT | Clinical Summary ---
:1940 Author Organization [facility] Address [address] [place] [id number] Care Team Providers Name Role Phone Emmy Jones MD Primary Care Provider Allergies Not on File Medications Not on file Active Problems Not on file Social History Tobacco Use Types Packs/Day Years Used Date Never Assessed Sex Assigned at Date Recorded Not on file Last Filed Vital Signs Not on file Plan of Treatment Health Maintenance Due Date Last Done Comments COVID-19 VACCINE (1 of 2) 1956 SHINGLES VACCINES (#1) 1990 65+ PNEUMOCOCCAL VACCINE (1 of 1 - PPSV23) 2005 INFLUENZA VACCINE 10/09/2019 Results Not on fileafter 04/16/2019 (Home) [place] [address] Advance Directives For more information, please contact: [phone] Type Date Recorded Patient Children'S Entertainer Explanati on Advance Directives, Living Will and Medical Power of Phlebotomy Services Representative
--- OUTSIDE RECORDS SUMMARY | 2020-04-16 10:00 | XMS REPORT | Clinical Summary ---
:[address] [facility] Address [address] [place] [address] Care Team Providers Name Role Phone Emmy Jones MD Primary Care Provider Bran Gomez Unavailable Allergies No Known Allergies Medications Medication Sig Dispensed Refills Start Date End Date Status metFORMIN (GLUCOPHAGE) Take 500 mg by 0 Active 500 MG tablet mouth daily with breakfast. levothyroxine Take 125 mcg by 0 Active (SYNTHROID, mouth Every LEVOTHROID) 125 MCG morning on an tablet empty stomach. donepezil (ARICEPT) 10 Take 10 mg by 0 Active MG tablet mouth daily. DULoxetine (CYMBALTA) Take 20 mg by 0 Active 20 MG capsule mouth daily. rivaroxaban (XARELTO) Take by mouth 0 Active 20 mg Tab tablet daily with dinner. nitroglycerin 0 07/01/2018 Activ e (NITROSTAT) 0.4 MG SL tablet aluminum-magnesium Take 30 mLs by 0 Active hydroxide-simethicone mouth as (MAALOX PLUS) needed. suspension 200-200-20 mg/5 mL aspirin 81 MG EC Take 1 tablet 0 07/28/2018 07/28/19 20 tablet (81 mg total) by mouth daily. atorvastatin (LIPITOR) Take 1 tablet 30 tablet 1 07/27/2018 40 MG tablet (40 mg total) by mouth nightly. amiodarone (PACERONE) Take 1 tablet 60 tablet 1 07/29/2018 200 MG tablet (200 mg total) by mouth 2 (two) times daily. metoprolol (LOPRESSOR) Take 1 tablet 60 tablet 1 07/29/2018 50 MG tablet (50 mg total) by mouth 2 (two) times daily. Active Problems Problem Noted Date S/P AVR (aortic valve replacement) 07/21/2018 S/P CABG x 1 07/21/2018 Diabetes mellitus type 2, noninsulin dependent Coronary artery disease Hypertension Aortic stenosis Hyperlipidemia Atrial fibrillation Family History Medical History Relation Name Comments Heart disease Father Diabetes Mother Heart disease Mother Relation Name Status Comments Father Mother Social History Tobacco Use Types Packs/Day Years Used Date Former Smoker Cigarettes 1 20 Quit: 1972 Smokeless Tobacco: Former User Chew Q uit: 1973 Alcohol Use Drinks/Week oz/Week Comments No Alcohol Habits Answer Date Recorded How often do you have a drink containing alcohol? Never 07/09/2018 How many drinks containing alcohol do you have on a typical Not asked day when you are drinking? How often do you have six or more drinks on one occasion? No t asked Sex Assigned at Date Recorded Not on file Last Filed Vital Signs Not on file Plan of Treatment Health Maintenance Due Date Last Done Comments DIABETIC EYE EXAM 1950 DIABETIC FOOT EXAM 1950 URINE MICROALBUMIN 1950 PNEUMOCOCCAL 65+ YRS (1 of 1 - [id number]) 2005 HEMOGLOBIN A1C 01/09/2019 07/09/2018 MEDICARE ANNUAL WELLNESS (YEAR 2 or FIRST YEAR if no 03/11/2019 IPPE) INFLUENZA VACCINE (#1) 2019 Implants Implanted Type Area Health Administration Teacher Device Shelf Model / Identifier Expiration Serial / Date Lot Vlv Aort Inspiris Resilia 21mm [id number] - [id number] IMPLANTS N/A: RAINEY LIFESCI 02/18/2020 [id number] / Implanted: Qty: 1 on 07/21/2018 by Shine Meehan MD at [facility] Chest [id number] / Results Not on fileafter 04/16/2019 Insurance Payer Benefit Plan / Subscriber ID Effective Dates Phone Addre ss Type Group AETNA - AETNA MEDICARE [id number] 2018-[place] [phone] [address] MEDICARE MGD HMO POS PPO t 2 [id number] [place] [address] Advance Directives For more information, please contact: [phone] Type Date Recorded Patient Activity Leader Explanati on Advance Directives and Living 07/09/2018 12:00 AM Will Code Status Date Activated Date Inactivated Comments Full Code 07/21/2018 5:52 AM 07/29/2018 2:01 PM This code status was determined by: Patient
--- OUTSIDE RECORDS SUMMARY | 2020-04-16 10:01 | XMS REPORT | Continuity of Care Document ---
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 01/17/2020 [facility] (finding) 17 Neuro Amnesia (finding) Active 07/27/19 Problem 01/17/2020 M ischer 16 Neuro Diabetes mellitus Active Problem 01/17/2020 M ischer type 2 (disorder) Ne uro Hypertensive Active Problem 01/17/2020 Mische r disorder, systemic N euro arterial (disorder) Hypothyroidism Active Problem 01/17/2020 Misc her (disorder) Neuro Primary Active Problem 01/17/2020 [facility] degenerative Neuro dementia of the Alzheimer type, senile onset (disorder) Medications Medication Details Route Status Patient Ordering Order Source Instructions Provider Date Memantine 10 mg = 1 Active [facility]ischer hydrochloride 10 tab, PO, 020 Neuro MG Oral Tablet BID, # 180 [Namenda] tab, 3 Refill(s), Pharmacy: [facility] #[id number], 170.18, cm, 10/22/19 9:06:00 CDT, Height, 107.727, kg, 10/22/19 9:06:00 CDT, Weight DULoxetine 20 mg See Active [facility]ischer oral delayed Instructions 020 Neuro release capsule , TAKE 1 CAPSULE BY MOUTH EVERY DAY, # 90 unknown unit, 2 Refill(s), Pharmacy: [facility] #[id number], 170.18, cm, 10/22/19 9:06:00 CDT, Height, 107.727, kg, 10/22/19 9:06:00 CDT, Weight Memantine 5 mg = 1 Active Mischer hydrochloride 5 tab, PO, 020 Neuro MG Oral Tablet BID, # 60 [Namenda] tab, 3 Refill(s), Pharmacy: [facility] #[id number], 170.18, cm, 10/22/19 9:06:00 CDT, Height, 107.727, kg, 10/22/19 9:06:00 CDT, Weight DULoxetine 20 mg = 1 cap, PO, Active Mi roni oral delayed Daily, # 90 020 Neuro release capsule cap, 1 Refill(s), [id number] rivaroxaban 20 20 mg = 1 Active Mischer MG Oral Tablet tab, PO, 019 Neuro [Xarelto] QPM, # 30 tab, 3 Refill(s) DULoxetine 20 mg = 1 cap, PO, Active Mi roni oral delayed Daily, # 90 019 Neuro release capsule cap, 1 Refill(s), [id number] donepezil 10 mg = 1 tab, PO, Active Mis jessica oral tablet Bedtime, # 019 Neuro 30 tab, Refill(s) 5, [id number] DULoxetine 20 mg = 1 cap, PO, Active Mi roni oral delayed Daily, # 30 019 Neuro release capsule unknown unit, Refill(s) 5, Pharmacy: [facility] #[id number] Allergies, Adverse Reactions, Alerts Substance Category Reaction Severity Reaction Status Date Comments S ource type Reported No Known Assertion Drug Misch er Medication allergy Neuro Allergies Immunizations No Data Provided for This Section Results No Data Provided for This Section Pathology Reports No Data Provided for This Section Diagnostic Reports No Data Provided for This Section Consultation Notes No Data Provided for This Section Discharge Summaries No Data Provided for This Section History and Physicals No Data Provided for This Section Vital Signs Vital Sign Value Date Comments Source Systolic (mm Hg) 140 [facility] Diastolic (mm Hg) 78 01/14/2020 [facility] Heart Rate 79 01/14/2020 [facility] Neuro Respitory Rate 16 01/14/2020 [facility] Height 167.64 cm 01/14/2020 [facility] Neuro Weight 104.545 01/14/2020 [facility] Neuro BMI Calculated 37.2 01/14/2020 [facility] Neuro Systolic (mm Hg) 164 10/22/2019 [facility] Jolie ro Diastolic (mm Hg) 94 10/22/2019 [facility] Ne uro Heart Rate 71 10/22/2019 [facility] Respitory Rate 16 10/22/2019 [facility] Neuro Height 170.18 cm 10/22/2019 [facility] Neuro Weight 107.727 10/22/2019 [facility] Neuro BMI Calculated 37.2 10/22/2019 [facility] Neuro Systolic (mm Hg) 160 10/21/2018 [facility] Jolie ro Diastolic (mm Hg) 90 10/21/2018 [facility] Ne uro Systolic (mm Hg) 190 10/21/2018 [facility] Jolie ro Diastolic (mm Hg) 114 10/21/2018 [facility] Ne uro Heart Rate 67 10/21/2018 [facility] Neuro Respitory Rate 16 10/21/2018 [facility] Neuro Height 170.18 cm 10/21/2018 [facility] Neuro Weight 101.818 10/21/2018 [facility] Neuro BMI Calculated 35.16 10/21/2018 [facility] Neuro Encounters Location Location Encounter Encounter Reason Attending ADM RI Stat us Source Details Type Number For Provider Date Date Visit Outpatient [id number] AUDREY 04/23 Active [facility] [place] Outpatient [id number] AUDREY 08/21 Active [facility] [place] Outpatient [id number] AUDREY 10/29 [facility] MNA Phone [id number] 02/04 02/06 [facility] Neurology [facility] [place] Outpatient [id number] AUDREY 07/29 [facility] [place] M[facility] Ambulatory [id number] Audrey 07/29 07/29 [facility] Neurology Pre-Reg Kre Neuro [place] Outpatient [id number] Audrey 10/21 Active [facility] [place] MNA Outpatient [id number] Audrey 10/21 10/22 [facility] Neurology Kre /2018 Neuro [place] Outpatient [id number] Audrey 10/21 Active [facility] [place] Outpatient [id number] Audrey 10/21 Active [facility] [place] M[facility] Ambulatory [id number] Audrey 10/21 10/21 [facility] Neurology Pre-Reg Kre /2019 Neuro [place] MNA Outpatient [id number] Audrey 10/21 10/22 [facility] Neurology K[place] /2019 Neuro [place] Outpatient [id number] Audrey 01/13 Active [facility] [place] M[facility] Outpatient [id number] Audrey 01/13 01/14 [facility] Kre /2019 Neuro [place] Outpatient [id number] Audrey 07/13 Active [facility] [place] Procedures Procedure Code Date Perfomer Comments Source Aortic valve [id number] [facility] o replacement and plication of ascending aorta Assessment and Plan No Data Provided for This Section Plan of Care No Data Provided for This Section Social History Social History Date Source Social History TypeResponse 01/14/2020 [facility] Employment/School 1 Smoking Status Former smoker; Type: Cigarettes; Exposur e to Tobacco Smoke None; Cigarette Smoking Last 365 Days No; Reg Smoking Cessation Counseling No2 entered on: 01/14/20 1May release medical information to Pablo riddle Maddison Jr-Son and Jamilah Washburn- Adgeqa3Gyuekon smokin 37 yrs ago Family History No Data Provided for This Section Advance Directives No Data Provided for This Section Functional Status No Data Provided for This Section
--- OUTSIDE RECORDS SUMMARY | 2020-04-16 10:03 | XMS REPORT | Continuity of Care Document ---
:1940 Author Organization [facility] t Address [address] [place] [address] Care Team Providers Name Role Phone Emmy Jones MD Primary Care Physician Charlie Worley Attending Clinician DAVID TALAVERA Attending Clinician Unavailable DAVID TALAVERA Admitting Clinician Unavailable Problems Condition Condition Condition Status Onset Resolution Last Treating Co mments Source Name Details Category Date Date Treatment Clinician Date S/P AVR S/P AVR Disease Active [facility] - valve valve 00:00: Medical replacemen replacemen 00 Ce nter t) t) S/P CABG x S/P CABG x Disease Active [facility] 1 1 07-21 [facility] - 00:00: Medical [address] [place] [address] 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 (finding) 07-09 00:50:38 l 00:00: [place] 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 07/09/2016 [facility] Problem Active 2020-01-17 Ulises sasha (finding) 07-26 00:50:38 l Amnesia 00:00: [place] (finding) 00 Active 07/27/2015 Problem 01/17/2020 [facility] Neuro Coronary Coronary Disease Active [facility] artery artery [facility] Aortic Aortic Disease Active [facility] stenosis stenosis [facility] Hyperlipid Hyperlipid Disease Active [facility] emia emia [facility] Atrial Atrial Disease Active [facility] fibrillati fibrillati [facility] Diabetes Problem Active 2020-01-17 Mem oria mellitus 00:50:38 l type 2 Diabetes Tolu n (disorder) mellitus type 2 (disorder) Active Problem 01/17/2020 [facility] Hypertensi Problem Active 2020-01-17 M emoria ve 00:50:38 l disorder, [place] systemic Hypertensi arterial ve (disorder) disorder, systemic arterial (disorder) Active Problem 01/17/2020 [facility] Hypothyroi Problem Active 2020-01-17 M emoria dism 00:50:38 l (disorder) Tolu n Hypothyroi dism (disorder) Active Problem 01/17/2020 [facility] Primary Problem Active 2020-01-17 Ulises sasha 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, of the senile Alzheimer onset type, (disorder) senile onset (disorder) Active Problem 01/17/2020 [facility] Allergies, Adverse Reactions, Alerts Allergy Allergy Status Severity Reaction(s) Onset Inactive Treating Comm ents Source Name Type Date Date Clinician No Known No Known Active Memori a Medicati Medicati l on on [place] Allergie Allergie s s Family History Family Member Diagnosis Comments Start Date Stop Date Source Natural father Heart disease [facility] Natural mother Diabetes [facility] Natural mother Heart disease [facility] Social History Social Habit Start Date Stop Date Quantity Comments Source History of tobacco Current smoker [facility] - use [facility] History SDOH [facility] - Alcohol Std Drinks Medica l Center History SDOH [facility] - Alcohol Binge Medical Abiel ter Sex Assigned At [facility] Social History 2020-01-14 2020-01-14 [facility] Hari lind 16:52:28 16:52:28 Cigarettes smoked 2018-07-22 2018-07-22 [facility] - current (pack per 00:00:00 00:00:00 Medical Center day) - Reported Cigarette 2018-07-22 2018-07-22 [facility] Olivia - pack-years 00:00:00 00:00:00 [facility] Tobacco use and 2018-07-22 2018-07-22 Former user [facility] Carmen ukes - exposure 00:00:00 00:00:00 [facility] Alcohol intake 2018-07-22 2018-07-22 Current EDITH Clark es - 00:00:00 00:00:00 non-drinker of Medical Ce nter alcohol (finding) History SDOH 2018-07-09 2018-07-09 1 EDITH Arreguin - Alcohol Frequency 00:00:00 00:00:00 [facility] Smoking Status Start Date Stop Date Source Former smoker 2018-07-22 00:00:00 2018-07-22 00:00:00 [facility] Medications Ordered Filled Start Stop Current Ordering Indication Dosage Frequency Signature Comments Components Source Medication Medication Date Date Medication? Clinician (SIG) Name Name Memantine 2019- Yes 10 mg = 1 Mem oria hydrochlori 1-06 tab, PO, l de 10 MG 16:49: BID, # 180 Her valente Oral Tablet 00 tab, 3 [Namenda] Refill(s), [id number], 170.18, cm, 10/22/19 9:06:00 CDT, Height, 107.727, kg, 10/22/19 9:06:00 CDT, Weight DULoxetine 0 Yes See Memoria 20 mg oral 9-14 Instructio l delayed 15:17: ns, TAKE 1 Herm gilbert release 00 CAPSULE BY capsule MOUTH EVERY DAY, # 90 unknown unit, 2 Refill(s), Pharmacy: [facility] #[id number], 170.18, cm, 10/22/19 9:06:00 CDT, Height, 107.727, kg, 10/22/19 9:06:00 CDT, Weight Memantine 2019-0 Yes 5 mg = 1 Ulises sasha hydrochlori 8-14 tab, PO, l de 5 MG 14:20: BID, # 60 Tracy nn Oral Tablet 00 tab, 3 [Namenda] Refill(s), Pharmacy: [facility] #[id number], 170.18, cm, 10/22/19 9:06:00 CDT, Height, 107.727, kg, 10/22/19 9:06:00 CDT, Weight DULoxetine 2019-0 Yes = 1 cap, Mem oria 20 mg oral 3-16 PO, Daily, l delayed 16:01: # 90 cap, Tracy nn release 00 1 capsule Refill(s), Pharmacy: [facility] #[id number] rivaroxaban Yes 20 mg = 1 M emoria 20 MG Oral 8-14 tab, PO, l Tablet 14:43: QPM, # 30 Tolu n [Xarelto] 00 tab, 3 Refill(s) DULoxetine Yes = 1 cap, Mem oria 20 mg oral 7-24 PO, Daily, l delayed 22:16: # 90 cap, Tracy nn release 51 1 capsule Refill(s), Pharmacy: [facility] #[id number] metFORMIN Yes 500mg Take [address] [facility] [facility] (GLUCOPHAGE 5-22 mg by [facility] - ) 500 MG 12:01: mouth Medical tablet 46 daily with Center breakfast. levothyroxi Yes 125ug Take [address] ne 5-22 mcg by [facility] - (SYNTHROID, 12:01: mouth Medic al LEVOTHROID) 46 Every Center 125 MCG morning on tablet an empty stomach. donepezil Yes 10mg QD Take [address] (ARICEPT) 5-22 by mouth [facility] - 10 MG 12:01: daily. Medical tablet 46 [place] DULoxetine Yes 20mg QD Take [address] (CYMBALTA) 5-22 by mouth [facility] - 20 MG 12:01: daily. Medical capsule 46 [place] rivaroxaban Yes Take by [facility] (XARELTO) 5-22 mouth [facility] - 20 mg Tab 12:01: daily with Me dical tablet 46 dinner. [place] aluminum-ma Yes 30mL Take [address] gnesium 5-22 mLs by [facility] - hydroxide-s 12:01: mouth as Me dical imethicone 46 needed. [place] (MAALOX PLUS) suspension 200-200-20 mg/5 mL amiodarone 2020- No 200mg Q.5D Take [address] (PACERONE) 5-22 05-21 tablet [facility] - 200 MG 00:00: 23:59 (200 mg Medical tablet 00 :00 total) by Center mouth 2 (two) times daily. metoprolol 2019- No 50mg Q.5D Take [address] (LOPRESSOR) 5-22 05-21 tablet (50 L ukes - 50 MG 00:00: 23:59 mg total) Medica l tablet 00 :00 by mouth 2 Center (two) times daily. aspirin 81 2020- No 81mg QD Take [address] MG EC 5-21 05-20 tablet (81 [facility] - tablet 00:00: 23:59 mg total) Medic al 00 :00 by mouth Center daily. atorvastati 2020- No 40mg QD Take [address] n (LIPITOR) 5-20 05-19 tablet (40 L ukes - 40 MG 00:00: 23:59 mg total) Medica l tablet 00 :00 by mouth Center nightly. nitroglycer Yes [facility] in 4-24 [facility] - (NITROSTAT) 00:00: Medica l 0.4 MG SL 00 Center tablet donepezil Yes = 1 tab, Ulises sasha 10 mg oral 3-25 PO, l tablet 16:03: Bedtime, # Tracy nn 07 30 tab, Refill(s) 5, Pharmacy: [facility] #[id number] DULoxetine Yes = 1 cap, Mem oria 20 mg oral 3-24 PO, Daily, l delayed 21:08: # 30 [place] release 47 unknown capsule unit, Refill(s) 5, Pharmacy: [facility] #[id number] Vital Signs Vital Name Observation Time Observation Value Comments Source Systolic (mm Hg) 2020-01-14 16:41:00 Ulises rial [place] Diastolic (mm Hg) 2020-01-14 16:41:00 [facility] orial [place] Heart Rate 2020-01-14 16:41:00 [facility] [place] Respitory Rate 2020-01-14 16:41:00 Memori al [place] Height 2020-01-14 16:41:00 167.64 cm [facility] Weight 2020-01-14 16:41:00 [facility] BMI Calculated 2020-01-14 16:41:00 Memori al [place] Systolic (mm Hg) 2019-10-22 14:06:00 Ulises rial [place] Diastolic (mm Hg) 2019-10-22 14:06:00 Mem orial [place] Heart Rate 2019-10-22 14:06:00 [facility] [place] Respitory Rate 2019-10-22 14:06:00 Memori al [place] Height 2019-10-22 14:06:00 170.18 cm [facility] Weight 2019-10-22 14:06:00 [facility] [place] BMI Calculated 2019-10-22 14:06:00 Memori al [place] Systolic (mm Hg) 2018-10-21 14:43:00 Ulises rial [place] Diastolic (mm Hg) 2018-10-21 14:43:00 Mem orial [place] Systolic (mm Hg) 2018-10-21 14:18:00 Ulises rial [place] Diastolic (mm Hg) 2018-10-21 14:18:00 Mem orial [place] Heart Rate 2018-10-21 14:18:00 [facility] [place] Respitory Rate 2018-10-21 14:18:00 Memori al [place] Height 2018-10-21 14:18:00 170.18 cm [facility] [place] Weight 2018-10-21 14:18:00 [facility] [place] BMI Calculated 2018-10-21 14:18:00 Memori al [place] Procedures Procedure Date / Time Performed Performing Clinician [facility] Aortic valve replacement Memoria l Robin and plication of ascending aorta Plan of Care Planned Activity Planned Date Details Comments Source Future Scheduled 2019-11-09 INFLUENZA VACCINE (#1) [facility] Test 00:00:00 [code = INFLUENZA Medical Ce nter VACCINE (#1)] Future Scheduled 2019-10-09 INFLUENZA VACCINE [place] [facility] 00:00:00 [code = INFLUENZA VACCINE] Future Scheduled 2019-03-[address] [facility] ukes - Test 00:00:00 WELLNESS (YEAR 2 or Medical Center FIRST YEAR if no IPPE) [code = MEDICARE ANNUAL WELLNESS (YEAR 2 or FIRST YEAR if no IPPE)] Future Scheduled 2019-01-[address] Yen kes - Test 00:00:00 [facility] Center (procedure) [code = 66666491] Future Scheduled 2005 65+ PNEUMOCOCCAL [place] [facility] Test 00:00:00 VACCINE (1 of 1 - PPSV23) [code = 65+ PNEUMOCOCCAL VACCINE (1 of 1 - PPSV23)] Future Scheduled 2005 PNEUMOCOCCAL 65+ YRS [facility] - Test 00:00:00 (1 of 1 - Medical Center [id number] PCV13) [code = PNEUMOCOCCAL 65+ YRS (1 of 1 - [id number] PCV13)] Future Scheduled 1990 SHINGLES VACCINES (#1) [place] [facility] Test 00:00:00 [code = SHINGLES VACCINES (#1)] Future Scheduled 1956 COVID-19 VACCINE (1 of [place] [facility] Test 00:00:00 2) [code = COVID-19 VACCINE (1 of 2)] Future Scheduled 1950 DIABETIC EYE EXAM [facility] - Test 00:00:00 [code = DIABETIC EYE Medical Center EXAM] Future Scheduled [address] Tay es - Test 00:00:00 examination Medical Center (regime/therapy) [code = 594074274] Future Scheduled 1950 Urine screening for [facility] - Test 00:00:00 protein (procedure) Medical Center [code = 062083762] Encounters Start End Encounter Admission Attending Care Care Encounter Source Date/Time Date/Time Type Type Clinicians Facility Department ID 2020-01-14 2020-01-14 Outpatient ALLISON Worley [id number] 10:30:00 23:59:59 Jaycob 07 Charlie 2019-10-22 2019-10-22 Outpatient ALLISON Worley [id number] 09:00:00 23:59:59 Jaycob Charlie 2019-10-22 2019-10-22 Outpatient ALLISON WorleySCHER [id number] 09:00:00 09:00:00 Jaycob 05 Charlie 2018-10-21 2018-10-21 Outpatient ALLISON Worley [id number] 09:00:00 23:59:59 Jaycob 04 Charlie 2018-07-29 2018-07-29 Outpatient ALLISON Worley [id number] 09:15:00 09:15:00 Jaycob 03 Charlie 2018-02-04 2018-02-05 Outpatient ALLISON ECHEVERRIASCHER [id number] 11:54:00 23:59:59 01 Results Test Description Test Time Test Comments Results Result Comments Source POCT-GLUCOSE METER 2018-07-29 16:36:00 Test Item Value Reference Range Interpretation Comme nts POC-GLUCOSE METER (HALLIE) (test 108 mg/dL 70-110 TESTED AT [facility] [address] [facility] code = 1538) [facility] 7703 0 BASIC METABOLIC [id number] 08:25:00 Test Item Value Reference Range Interpretation Comments SODIUM (BEAKER) 138 meq/L 136-145 (test code = 381) POTASSIUM (BEAKER) 4.1 meq/L 3.5-5.1 (test code = 379) CHLORIDE (BEAKER) 103 meq/L 98-107 (test code = 382) CO2 (BEAKER) (test 26 meq/L 22-29 code = 355) BLOOD UREA NITROGEN 19 mg/dL 7-21 (BEAKER) (test code = 354) CREATININE (BEAKER) 0.85 mg/dL 0.57-1.25 (test code = 358) GLUCOSE RANDOM 100 mg/dL 70-105 (BEAKER) (test code = 652) CALCIUM (BEAKER) 8.2 mg/dL 8.4-10.2 L (test code = 697) EGFR (BEAKER) (test 87 mL/min/1.73 ESTIMA STELLA GFR IS code = 1092) sq m NOT ACCURATE CREATININE CLEARANCE IN PREDICTING GLOMERULAR FILTRATION RATE . ESTIMATED GFR I S NOT APPLICABLE FOR DIALYSIS PATIEN TS. CBC W/PLT COUNT & AUTO [id number] 05:31:00 Test Item Value Reference Range Interpretation Comments WHITE BLOOD CELL COUNT (BEAKER) 8.4 K/ L 3.5-10.5 (test code = 775) RED BLOOD CELL COUNT (BEAKER) 3.49 M/ L 4.63-6.08 L (test code = 761) HEMOGLOBIN (BEAKER) (test code = 10.3 GM/DL 13.7-17.5 L 410) HEMATOCRIT (BEAKER) (test code = 31.7 % 40.1-51.0 L 411) MEAN CORPUSCULAR VOLUME (BEAKER) 90.8 fL 79.0-92.2 (test code = 753) MEAN CORPUSCULAR HEMOGLOBIN 29.5 pg 25.7-32.2 (BEAKER) (test code = 751) MEAN CORPUSCULAR HEMOGLOBIN CONC 32.5 GM/DL 32.3-36.5 (BEAKER) (test code = 752) RED CELL DISTRIBUTION WIDTH 14.7 % 11.6-14.4 H (BEAKER) (test code = 412) PLATELET COUNT (BEAKER) (test 238 K/CU MM 150-450 code = 756) MEAN PLATELET VOLUME (BEAKER) 10.5 fL 9.4-12.4 (test code = 754) NUCLEATED RED BLOOD CELLS 0 /100 WBC 0-0 (BEAKER) (test code = 413) NEUTROPHILS RELATIVE PERCENT 68 % (BEAKER) (test code = 429) LYMPHOCYTES RELATIVE PERCENT 17 % (BEAKER) (test code = 430) MONOCYTES RELATIVE PERCENT 7 % (BEAKER) (test code = 431) EOSINOPHILS RELATIVE PERCENT 7 % (BEAKER) (test code = 432) BASOPHILS RELATIVE PERCENT 1 % (BEAKER) (test code = 437) NEUTROPHILS ABSOLUTE COUNT 5.70 K/ L 1.78-5.38 H (BEAKER) (test code = 670) LYMPHOCYTES ABSOLUTE COUNT 1.42 K/ L 1.32-3.57 (BEAKER) (test code = 414) MONOCYTES ABSOLUTE COUNT (BEAKER) 0.61 K/ L 0.30-0.82 (test code = 415) EOSINOPHILS ABSOLUTE COUNT 0.56 K/ L 0.04-0.54 H (BEAKER) (test code = 416) BASOPHILS ABSOLUTE COUNT (BEAKER) 0.06 K/ L 0.01-0.08 (test code = 417) IMMATURE GRANULOCYTES-RELATIVE 1 % 0-1 PERCENT (BEAKER) (test code = 2801) POCT-GLUCOSE [id number] 23:32:00 Test Item Value Reference Range Interpretation Comments POC-GLUCOSE METER 95 mg/dL 70-110 TESTED AT [place] [address] ([facility]) (test code = [facility] [address] 1538) POCT-GLUCOSE [id number] 17:21:00 Test Item Value Reference Range Interpretation Comments POC-GLUCOSE METER 104 mg/dL 70-110 TESTED AT [place] [address] ([facility]) (test code = [facility] 1538) [id number] 10:35:00 Test Item Value Reference Range Interpretation Comments MAGNESIUM ([facility]) (test code = 1.9 mg/dL 1.6-2.6 627) POCT-GLUCOSE [id number] 09:09:00 Test Item Value Reference Range Interpretation Comments POC-GLUCOSE METER 122 mg/dL 70-110 H TESTED AT [place] [address] ([facility]) (test code = [facility] 1538) [address] BASIC METABOLIC [id number] 02:49:00 Test Item Value Reference Range Interpretation Comments SODIUM (BEAKER) 138 meq/L 136-145 (test code = 381) POTASSIUM (BEAKER) 3.6 meq/L 3.5-5.1 (test code = 379) CHLORIDE (BEAKER) 103 meq/L 98-107 (test code = 382) CO2 (BEAKER) (test 24 meq/L 22-29 code = 355) BLOOD UREA NITROGEN 18 mg/dL 7-21 (BEAKER) (test code = 354) CREATININE (BEAKER) 0.89 mg/dL 0.57-1.25 (test code = 358) GLUCOSE RANDOM 136 mg/dL 70-105 H (BEAKER) (test code = 652) CALCIUM (BEAKER) 8.3 mg/dL 8.4-10.2 L (test code = 697) EGFR (BEAKER) (test 83 mL/min/1.73 ESTIMA STELLA GFR IS code = 1092) sq m NOT ACCURATE CREATININE CLEARANCE IN PREDICTING GLOMERULAR FILTRATION RATE . ESTIMATED GFR I S NOT APPLICABLE FOR DIALYSIS PATIEN TS. LACTIC ACID, [id number] 02:46:00 Test Item Value Reference Range Interpretation Comments LACTATE BLOOD VENOUS (2) (BEAKER) 2.0 mmol/L 0.5-2.2 (test code = 2872) LACTIC ACID, [id number] 22:31:00 Test Item Value Reference Range Interpretation Comments LACTATE BLOOD VENOUS (2) (BEAKER) 2.1 mmol/L 0.5-2.2 (test code = 2872) POCT-GLUCOSE [id number] 21:55:00 Test Item Value Reference Range Interpretation Comments POC-GLUCOSE METER 168 mg/dL 70-110 H TESTED AT [facility] [address] (BEAKER) (test code = TAB[place] 1538) [id number] 20:15:00 Test Item Value Reference Range Interpretation Comments MAGNESIUM (BEAKER) (test code = 1.9 mg/dL 1.6-2.6 627) BASIC METABOLIC [id number] 20:15:00 Test Item Value Reference Range Interpretation Comments SODIUM (BEAKER) 137 meq/L 136-145 (test code = 381) POTASSIUM (BEAKER) 3.7 meq/L 3.5-5.1 (test code = 379) CHLORIDE (BEAKER) 103 meq/L 98-107 (test code = 382) CO2 (BEAKER) (test 22 meq/L 22-29 code = 355) BLOOD UREA NITROGEN 16 mg/dL 7-21 (BEAKER) (test code = 354) CREATININE (BEAKER) 0.85 mg/dL 0.57-1.25 (test code = 358) GLUCOSE RANDOM 187 mg/dL 70-105 H (BEAKER) (test code = 652) CALCIUM (BEAKER) 8.6 mg/dL 8.4-10.2 (test code = 697) EGFR (BEAKER) (test 87 mL/min/1.73 ESTIMA STELLA GFR IS code = 1092) sq m NOT ACCURATE CREATININE CLEARANCE IN PREDICTING GLOMERULAR FILTRATION RATE . ESTIMATED GFR I S NOT APPLICABLE FOR DIALYSIS PATIEN TS. CBC W/PLT COUNT & AUTO [id number] 20:14:00 Test Item Value Reference Range Interpretation Comments WHITE BLOOD CELL COUNT (BEAKER) 11.8 K/ L 3.5-10.5 H (test code = 775) RED BLOOD CELL COUNT (BEAKER) 3.74 M/ L 4.63-6.08 L (test code = 761) HEMOGLOBIN (BEAKER) (test code = 11.0 GM/DL 13.7-17.5 L 410) HEMATOCRIT (BEAKER) (test code = 34.5 % 40.1-51.0 L 411) MEAN CORPUSCULAR VOLUME (BEAKER) 92.2 fL 79.0-92.2 (test code = 753) MEAN CORPUSCULAR HEMOGLOBIN 29.4 pg 25.7-32.2 (BEAKER) (test code = 751) MEAN CORPUSCULAR HEMOGLOBIN CONC 31.9 GM/DL 32.3-36.5 L (BEAKER) (test code = 752) RED CELL DISTRIBUTION WIDTH 14.6 % 11.6-14.4 H (BEAKER) (test code = 412) PLATELET COUNT (BEAKER) (test 302 K/CU MM 150-450 code = 756) MEAN PLATELET VOLUME (BEAKER) 10.8 fL 9.4-12.4 (test code = 754) NUCLEATED RED BLOOD CELLS 0 /100 WBC 0-0 (BEAKER) (test code = 413) NEUTROPHILS RELATIVE PERCENT 81 % (BEAKER) (test code = 429) LYMPHOCYTES RELATIVE PERCENT 10 % (BEAKER) (test code = 430) MONOCYTES RELATIVE PERCENT 7 % (BEAKER) (test code = 431) EOSINOPHILS RELATIVE PERCENT 1 % (BEAKER) (test code = 432) BASOPHILS RELATIVE PERCENT 0 % (BEAKER) (test code = 437) NEUTROPHILS ABSOLUTE COUNT 9.58 K/ L 1.78-5.38 H (BEAKER) (test code = 670) LYMPHOCYTES ABSOLUTE COUNT 1.13 K/ L 1.32-3.57 L (BEAKER) (test code = 414) MONOCYTES ABSOLUTE COUNT (BEAKER) 0.79 K/ L 0.30-0.82 (test code = 415) EOSINOPHILS ABSOLUTE COUNT 0.15 K/ L 0.04-0.54 (BEAKER) (test code = 416) BASOPHILS ABSOLUTE COUNT (BEAKER) 0.05 K/ L 0.01-0.08 (test code = 417) IMMATURE GRANULOCYTES-RELATIVE 1 % 0-1 PERCENT (BEAKER) (test code = 2801) POCT-LACTIC ACID, [id number] 19:45:00 Test Item Value Reference Range Interpretation Comments POC-LACTIC ACID, 2.4 mmol/L 0.9-1.7 H TESTED AT [facility] [address] [place] ([facility]) (test [facility] code = 2805) [id number] POCT-GLUCOSE [id number] 19:25:00 Test Item Value Reference Range Interpretation Comments POC-GLUCOSE METER 204 mg/dL 70-110 H TESTED AT [place] [address] ([facility]) (test code = [facility] 1538) [address] POCT-GLUCOSE [id number] 17:24:00 Test Item Value Reference Range Interpretation Comments POC-GLUCOSE METER 149 mg/dL 70-110 H TESTED AT [place] [address] ([facility]) (test code = [facility] 1538) [address] RAD, CHEST, 1 VIEW, NON [id number] 12:01:00Reason for exam:- >dyspneaShould this be performed at the bedside?->YesFINAL REPORT CLINICAL HISTORY: dyspnea TECHNIQUE: 1 view of the chest. COMPAR ZEUS: 07/25/2018 IMPRESSION: Left lung base pleural-parenchymal opacity is unchanged. The right lung remains relatively well-aerated. The cardiomediastinal silhouette is magnified by technique with sternotomy wires. Signed: Alan Chi MDReport Verified Date/Time: 07/27/2018 12:01:19 Reading Location: [facility] Radiology Reading Room TISSUE [id number] 11:59:00Surgical Pathology Report Case: [id number] Authorizing Provider: Shine Talavera, Collected: 07/21/2018 1022 MD OrderingLocation: [facility] Received: 07/21/2018 1159 PERIOPERATIVE SERVICES Pathologist: Davion Mallory MD Specimen: Aortic Valve HEART, AORTIC VALVE,VALVULECTOMY:LEAFLETS WITH SEVERE NODULAR CALCIFIC ATHEROSCLEROTIC THICKENING Signing Pathologist Direct Phone Line: [phone] signed by Davion Mallory MD on 07/27/2018 at 11:59 A [id number]; [id number] disease disease, aortic valve stenosis, etiology of [...] representatively in a single cassette following decalcification. [id number] 11:30:00 Test Item Value Reference Range Interpretation Comments MAGNESIUM (BEAKER) (test code = 1.7 mg/dL 1.6-2.6 627) POCT-GLUCOSE [id number] 09:47:00 Test Item Value Reference Range Interpretation Comments POC-GLUCOSE METER 114 mg/dL 70-110 H TESTED AT [facility] [address] (BEAKER) (test code = [place] 1538) [address] BASIC METABOLIC [id number] 05:37:00 Test Item Value Reference Range Interpretation Comments SODIUM (BEAKER) 137 meq/L 136-145 (test code = 381) POTASSIUM (BEAKER) 3.8 meq/L 3.5-5.1 (test code = 379) CHLORIDE (BEAKER) 102 meq/L 98-107 (test code = 382) CO2 (BEAKER) (test 26 meq/L 22-29 code = 355) BLOOD UREA NITROGEN 13 mg/dL 7-21 (BEAKER) (test code = 354) CREATININE (BEAKER) 0.74 mg/dL 0.57-1.25 (test code = 358) GLUCOSE RANDOM 109 mg/dL 70-105 H (BEAKER) (test code = 652) CALCIUM (BEAKER) 8.4 mg/dL 8.4-10.2 (test code = 697) EGFR (BEAKER) (test 102 mL/min/1.73 ESTIM ATED GFR IS code = 1092) sq m NOT ACCURATE CREATININE CLEARANCE IN PREDICTING GLOMERULAR FILTRATION RATE . ESTIMATED GFR I S NOT APPLICABLE FOR DIALYSIS PATIEN TS. POCT-GLUCOSE [id number] 21:01:00 Test Item Value Reference Range Interpretation Comments POC-GLUCOSE METER 136 mg/dL 70-110 H TESTED AT [facility] [address] [facility] (test code = [facility] 1538) [id number] POCT-GLUCOSE [id number] 15:47:00 Test Item Value Reference Range Interpretation Comments POC-GLUCOSE METER 121 mg/dL 70-110 H TESTED AT [facility] [address] [facility] (test code = [facility] 1538) [address] POCT-GLUCOSE [id number] 09:34:00 Test Item Value Reference Range Interpretation Comments POC-GLUCOSE METER 95 mg/dL 70-110 TESTED AT [facility] [address] [facility] (test code = [facility] [address] 1538) BASIC METABOLIC [id number] 07:28:00 Test Item Value Reference Range Interpretation Comments SODIUM (BEAKER) 136 meq/L 136-145 (test code = 381) POTASSIUM (BEAK[facility]) 3.6 meq/L 3.5-5.1 (test code = 379) CHLORIDE (BEAKER) 101 meq/L 98-107 (test code = 382) CO2 (BEAKER) (test 26 meq/L 22-29 code = 355) BLOOD UREA NITROGEN 15 mg/dL 7-21 ([facility]) (test code = 354) CREATININE ([facility]) 0.69 mg/dL 0.57-1.25 (test code = 358) GLUCOSE RANDOM 107 mg/dL 70-105 H ([facility]) (test code = 652) CALCIUM ([facility]) 7.9 mg/dL 8.4-10.2 L (test code = 697) EGFR ([facility]) (test 111 mL/min/1.73 ESTIM ATED GFR IS code = 1092) sq m NOT ACCURATE CREATININE CLEARANCE IN PREDICTING GLOMERULAR FILTRATION RATE . ESTIMATED GFR I S NOT APPLICABLE FOR DIALYSIS PATIEN TS. POCT-GLUCOSE [id number] 22:08:00 Test Item Value Reference Range Interpretation Comments POC-GLUCOSE METER 149 mg/dL 70-110 H TESTED AT [facility] 67[address] ([facility]) (test code = TABATHA Lozano [facility] 1538) [id number] POCT-GLUCOSE [id number] 15:46:00 Test Item Value Reference Range Interpretation Comments POC-GLUCOSE METER 95 mg/dL 70-110 TESTED AT [place] [address] ([facility]) (test code = TABATHA Lozano [facility] [address] 1538) B-TYPE NATRIURETIC FACTOR (BNP)2018-07-25 11:55:00 Test Item Value Reference Range Interpretation Comments B-TYPE NATRIURETIC PEPTIDE ([facility]) 301 pg/mL 0-100 H (test code = 700) RAD, CHEST, 1 VIEW, NON [id number] 11:29:00Reason for exam:->shortness of breathShould this be performed at the bedside?->YesFINAL REPORT Comparison: 07/24/2018 TECHNIQUE: Single view of the chest FINDINGS: Small left pleural effusion with adjacent airspace disease. Mild vascular congestion suspected elsewhere. Cardiac silhouette is enlarged. Postsurgical changes in the mediastinum noted. Signed: Aung Timmons MDReport Verified Date/Time: 07/25/2018 11:29:19 Reading Location: [address] [id number] 09:47:00 Test Item Value Reference Range Interpretation Comments MAGNESIUM (BEAKER) (test code = 1.9 mg/dL 1.6-2.6 627) BASIC METABOLIC [id number] 09:47:00 Test Item Value Reference Range Interpretation Comments SODIUM (BEAKER) 138 meq/L 136-145 (test code = 381) POTASSIUM (BEAKER) 3.6 meq/L 3.5-5.1 (test code = 379) CHLORIDE (BEAKER) 102 meq/L 98-107 (test code = 382) CO2 (BEAKER) (test 26 meq/L 22-29 code = 355) BLOOD UREA NITROGEN 14 mg/dL 7-21 (BEAKER) (test code = 354) CREATININE (BEAKER) 0.73 mg/dL 0.57-1.25 (test code = 358) GLUCOSE RANDOM 101 mg/dL 70-105 (BEAKER) (test code = 652) CALCIUM (BEAKER) 8.5 mg/dL 8.4-10.2 (test code = 697) EGFR (BEAKER) (test 104 mL/min/1.73 ESTIM ATED GFR IS code = 1092) sq m NOT ACCURATE CREATININE CLEARANCE IN PREDICTING GLOMERULAR FILTRATION RATE . ESTIMATED GFR I S NOT APPLICABLE FOR DIALYSIS PATIEN TS. POCT-GLUCOSE [id number] 08:41:00 Test Item Value Reference Range Interpretation Comments POC-GLUCOSE METER 115 mg/dL 70-110 H TESTED AT [facility] 6720 (BEAKER) (test code = TAB[place] 1538) [address] CBC W/PLT COUNT & AUTO [id number] 06:04:00 Test Item Value Reference Range Interpretation Comments WHITE BLOOD CELL COUNT (BEAKER) 9.1 K/ L 3.5-10.5 (test code = 775) RED BLOOD CELL COUNT (BEAKER) 3.73 M/ L 4.63-6.08 L (test code = 761) HEMOGLOBIN (BEAKER) (test code = 11.0 GM/DL 13.7-17.5 L 410) HEMATOCRIT (BEAKER) (test code = 34.1 % 40.1-51.0 L 411) MEAN CORPUSCULAR VOLUME (BEAKER) 91.4 fL 79.0-92.2 (test code = 753) MEAN CORPUSCULAR HEMOGLOBIN 29.5 pg 25.7-32.2 (BEAKER) (test code = 751) MEAN CORPUSCULAR HEMOGLOBIN CONC 32.3 GM/DL 32.3-36.5 (BEAKER) (test code = 752) RED CELL DISTRIBUTION WIDTH 14.7 % 11.6-14.4 H (BEAKER) (test code = 412) PLATELET COUNT (BEAKER) (test 182 K/CU MM 150-450 code = 756) MEAN PLATELET VOLUME (BEAKER) 10.9 fL 9.4-12.4 (test code = 754) NUCLEATED RED BLOOD CELLS 0 /100 WBC 0-0 (BEAKER) (test code = 413) NEUTROPHILS RELATIVE PERCENT 74 % (BEAKER) (test code = 429) LYMPHOCYTES RELATIVE PERCENT 13 % (BEAKER) (test code = 430) MONOCYTES RELATIVE PERCENT 9 % (BEAKER) (test code = 431) EOSINOPHILS RELATIVE PERCENT 3 % (BEAKER) (test code = 432) BASOPHILS RELATIVE PERCENT 1 % (BEAKER) (test code = 437) NEUTROPHILS ABSOLUTE COUNT 6.71 K/ L 1.78-5.38 H (BEAKER) (test code = 670) LYMPHOCYTES ABSOLUTE COUNT 1.14 K/ L 1.32-3.57 L (BEAKER) (test code = 414) MONOCYTES ABSOLUTE COUNT (BEAKER) 0.82 K/ L 0.30-0.82 (test code = 415) EOSINOPHILS ABSOLUTE COUNT 0.30 K/ L 0.04-0.54 (BEAKER) (test code = 416) BASOPHILS ABSOLUTE COUNT (BEAKER) 0.06 K/ L 0.01-0.08 (test code = 417) IMMATURE GRANULOCYTES-RELATIVE 1 % 0-1 PERCENT (BEAKER) (test code = 2801) POCT-GLUCOSE [id number] 21:45:00 Test Item Value Reference Range Interpretation Comments POC-GLUCOSE METER 120 mg/dL 70-110 H TESTED AT [facility] (test code = [place] 1538) [id number] POCT-GLUCOSE [id number] 18:01:00 Test Item Value Reference Range Interpretation Comments POC-GLUCOSE METER 150 mg/dL 70-110 H TESTED AT [facility] 6720 (BEAKER) (test code = TAB[place] 1538) [address] POCT-GLUCOSE [id number] 13:03:00 Test Item Value Reference Range Interpretation Comments POC-GLUCOSE METER 152 mg/dL 70-110 H TESTED AT [facility] (test code = TABATHA [place] [facility] 1538) [address] RAD, CHEST, 1 VIEW, NON [id number] 09:45:00Reason for exam:->pleural effShould this be performed at the bedside?->YesFINAL REPORT TECHNIQUE: Frontal chest radiograph dated 07/24/2018. CLINICAL HISTORY: Pleural effusion COMPARISON STUDY: Chest radiograph dated 07/22/2018 IMPRESSION:The extreme lateral left lung base is not included in the [id number]-[id number]. A small left pleural effusion is suspected. Stable left lung base atelectasis. No pneumothorax. Cardiomediastinal silhouette is normal in size.No pulmonary edema. Midline sternotomy wires are intact and well aligned. Signed: Neel Hameport Verified Date/Time: 07/24/2018 09:45:08 Reading Location: [facility] Radiology Reading Room POCT-GLUCOSE [id number] 08:16:00 Test Item Value Reference Range Interpretation Comments POC-GLUCOSE METER 149 mg/dL 70-110 H TESTED AT [facility] [address] [facility] (test code = TABATHA Lozano [facility] 1538) [id number] 07:48:00 Test Item Value Reference Range Interpretation Comments PHOSPHORUS (BEAKER) (test code = 1.5 mg/dL 2.3-4.7 LL 604) [id number] 07:43:00 Test Item Value Reference Range Interpretation Comments MAGNESIUM (BEAKER) (test code = 1.8 mg/dL 1.6-2.6 627) BASIC METABOLIC [id number] 07:43:00 Test Item Value Reference Range Interpretation Comments SODIUM (BEAKER) 134 meq/L 136-145 L (test code = 381) POTASSIUM (BEAKER) 3.5 meq/L 3.5-5.1 (test code = 379) CHLORIDE (BEAKER) 101 meq/L 98-107 (test code = 382) CO2 (BEAKER) (test 24 meq/L 22-29 code = 355) BLOOD UREA NITROGEN 12 mg/dL 7-21 (BEAKER) (test code = 354) CREATININE (BEAKER) 0.75 mg/dL 0.57-1.25 (test code = 358) GLUCOSE RANDOM 103 mg/dL 70-105 (BEAKER) (test code = 652) CALCIUM (BEAKER) 8.1 mg/dL 8.4-10.2 L (test code = 697) EGFR (BEAKER) (test 101 mL/min/1.73 ESTIM ATED GFR IS code = 1092) sq m NOT ACCURATE CREATININE CLEARANCE IN PREDICTING GLOMERULAR FILTRATION RATE . ESTIMATED GFR I S NOT APPLICABLE FOR DIALYSIS PATIEN TS. CBC W/PLT COUNT & AUTO [id number] 06:04:00 Test Item Value Reference Range Interpretation Comments WHITE BLOOD CELL COUNT (BEAKER) 12.0 K/ L 3.5-10.5 H (test code = 775) RED BLOOD CELL COUNT (BEAKER) 3.47 M/ L 4.63-6.08 L (test code = 761) HEMOGLOBIN (BEAKER) (test code = 10.2 GM/DL 13.7-17.5 L 410) HEMATOCRIT (BEAKER) (test code = 31.8 % 40.1-51.0 L 411) MEAN CORPUSCULAR VOLUME (BEAKER) 91.6 fL 79.0-92.2 (test code = 753) MEAN CORPUSCULAR HEMOGLOBIN 29.4 pg 25.7-32.2 (BEAKER) (test code = 751) MEAN CORPUSCULAR HEMOGLOBIN CONC 32.1 GM/DL 32.3-36.5 L (BEAKER) (test code = 752) RED CELL DISTRIBUTION WIDTH 14.7 % 11.6-14.4 H (BEAKER) (test code = 412) PLATELET COUNT (BEAKER) (test 134 K/CU MM 150-450 L code = 756) MEAN PLATELET VOLUME (BEAKER) 11.1 fL 9.4-12.4 (test code = 754) NUCLEATED RED BLOOD CELLS 0 /100 WBC 0-0 (BEAKER) (test code = 413) NEUTROPHILS RELATIVE PERCENT 80 % (BEAKER) (test code = 429) LYMPHOCYTES RELATIVE PERCENT 10 % (BEAKER) (test code = 430) MONOCYTES RELATIVE PERCENT 8 % (BEAKER) (test code = 431) EOSINOPHILS RELATIVE PERCENT 1 % (BEAKER) (test code = 432) BASOPHILS RELATIVE PERCENT 0 % (BEAKER) (test code = 437) NEUTROPHILS ABSOLUTE COUNT 9.58 K/ L 1.78-5.38 H (BEAKER) (test code = 670) LYMPHOCYTES ABSOLUTE COUNT 1.14 K/ L 1.32-3.57 L (BEAKER) (test code = 414) MONOCYTES ABSOLUTE COUNT (BEAKER) 0.99 K/ L 0.30-0.82 H (test code = 415) EOSINOPHILS ABSOLUTE COUNT 0.13 K/ L 0.04-0.54 (BEAKER) (test code = 416) BASOPHILS ABSOLUTE COUNT (BEAKER) 0.05 K/ L 0.01-0.08 (test code = 417) IMMATURE GRANULOCYTES-RELATIVE 1 % 0-1 PERCENT (BEAKER) (test code = 2801) POCT-GLUCOSE [id number] 21:28:00 Test Item Value Reference Range Interpretation Comments POC-GLUCOSE METER 130 mg/dL 70-110 H TESTED AT [facility] 67[address] (BEAKER) (test code = [place] 1538) [id number] URINALYSIS W/ REFLEX URINE [id number] 18:20:00 Test Item Value Reference Range Interpretation Comments COLOR (BEAKER) (test code = 470) Yellow CLARITY (BEAKER) (test code = 469) Clear SPECIFIC GRAVITY UA (BEAKER) (test 1.023 1.001-1.035 code = 468) PH UA (BEAKER) (test code = 467) 5.5 5.0-8.0 PROTEIN UA (BEAKER) (test code = 30 mg/dL Negative A 464) GLUCOSE UA (BEAKER) (test code = 70 mg/dL Negative A 365) KETONES UA (BEAKER) (test code = 20 mg/dL Negative A 371) BILIRUBIN UA (BEAKER) (test code = Negative Negative 462) BLOOD UA (BEAKER) (test code = 461) Trace Negative A NITRITE UA (BEAKER) (test code = Negative Negative 465) LEUKOCYTE ESTERASE UA (BEAKER) Negative Negative (test code = 466) UROBILINOGEN UA (BEAKER) (test code 0.2 mg/dL 0.2-1.0 = 463) RBC UA (BEAKER) (test code = 519) 2 /HPF WBC UA (BEAKER) (test code = 520) 3 /HPF MUCUS (BEAKER) (test code = 1574) Moderate SOURCE(BEAKER) (test code = 8786) POCT-GLUCOSE [id number] 14:57:00 Test Item Value Reference Range Interpretation Comments POC-GLUCOSE METER 135 mg/dL 70-110 H TESTED AT [facility] 67[address] (BEAKER) (test code = TAB[place] 1538) [address] B-TYPE NATRIURETIC FACTOR (BNP)2018-07-23 06:49:00 Test Item Value Reference Range Interpretation Comments B-TYPE NATRIURETIC PEPTIDE (BEAKER) 446 pg/mL 0-100 H (test code = 700) [id number] 06:09:00 Test Item Value Reference Range Interpretation Comments PHOSPHORUS (BEAKER) (test code = 2.4 mg/dL 2.3-4.7 604) [id number] 06:09:00 Test Item Value Reference Range Interpretation Comments MAGNESIUM (BEAKER) (test code = 2.0 mg/dL 1.6-2.6 627) BASIC METABOLIC [id number] 06:09:00 Test Item Value Reference Range Interpretation Comments SODIUM (BEAKER) 136 meq/L 136-145 (test code = 381) POTASSIUM (BEAKER) 3.7 meq/L 3.5-5.1 (test code = 379) CHLORIDE (BEAKER) 104 meq/L 98-107 (test code = 382) CO2 (BEAKER) (test 26 meq/L 22-29 code = 355) BLOOD UREA NITROGEN 11 mg/dL 7-21 (BEAKER) (test code = 354) CREATININE (BEAKER) 0.84 mg/dL 0.57-1.25 (test code = 358) GLUCOSE RANDOM 138 mg/dL 70-105 H (BEAKER) (test code = 652) CALCIUM (BEAKER) 8.1 mg/dL 8.4-10.2 L (test code = 697) EGFR (BEAKER) (test 88 mL/min/1.73 ESTIMA STELLA GFR IS code = 1092) sq m NOT ACCURATE CREATININE CLEARANCE IN PREDICTING GLOMERULAR FILTRATION RATE . ESTIMATED GFR I S NOT APPLICABLE FOR DIALYSIS PATIEN TS. CALCIUM, [id number] 05:57:00 Test Item Value Reference Range Interpretation Comments CALCIUM IONIZED (BEAKER) (test 1.03 mmol/L 1.12-1.27 L code = 698) PH, BLOOD (BEAKER) (test code = 7.44 1810) Check serum Ionized Calcium level after 4 hours after IV Calcium replacement.CBC W/PLT COUNT & AUTO [id number] 05:46:00 Test Item Value Reference Range Interpretation Comments WHITE BLOOD CELL COUNT (BEAKER) 14.7 K/ L 3.5-10.5 H (test code = 775) RED BLOOD CELL COUNT (BEAKER) 3.43 M/ L 4.63-6.08 L (test code = 761) HEMOGLOBIN (BEAKER) (test code = 10.3 GM/DL 13.7-17.5 L 410) HEMATOCRIT (BEAKER) (test code = 31.4 % 40.1-51.0 L 411) MEAN CORPUSCULAR VOLUME (BEAKER) 91.5 fL 79.0-92.2 (test code = 753) MEAN CORPUSCULAR HEMOGLOBIN 30.0 pg 25.7-32.2 (BEAKER) (test code = 751) MEAN CORPUSCULAR HEMOGLOBIN CONC 32.8 GM/DL 32.3-36.5 (BEAKER) (test code = 752) RED CELL DISTRIBUTION WIDTH 14.5 % 11.6-14.4 H (BEAKER) (test code = 412) PLATELET COUNT (BEAKER) (test 114 K/CU MM 150-450 L code = 756) MEAN PLATELET VOLUME (BEAKER) 11.4 fL 9.4-12.4 (test code = 754) NUCLEATED RED BLOOD CELLS 0 /100 WBC 0-0 (BEAKER) (test code = 413) NEUTROPHILS RELATIVE PERCENT 83 % (BEAKER) (test code = 429) LYMPHOCYTES RELATIVE PERCENT 8 % (BEAKER) (test code = 430) MONOCYTES RELATIVE PERCENT 8 % (BEAKER) (test code = 431) EOSINOPHILS RELATIVE PERCENT 0 % (BEAKER) (test code = 432) BASOPHILS RELATIVE PERCENT 0 % (BEAKER) (test code = 437) NEUTROPHILS ABSOLUTE COUNT 12.17 K/ L 1.78-5.38 H (BEAKER) (test code = 670) LYMPHOCYTES ABSOLUTE COUNT 1.16 K/ L 1.32-3.57 L (BEAKER) (test code = 414) MONOCYTES ABSOLUTE COUNT (BEAKER) 1.19 K/ L 0.30-0.82 H (test code = 415) EOSINOPHILS ABSOLUTE COUNT 0.06 K/ L 0.04-0.54 (BEAKER) (test code = 416) BASOPHILS ABSOLUTE COUNT (BEAKER) 0.04 K/ L 0.01-0.08 (test code = 417) IMMATURE GRANULOCYTES-RELATIVE 1 % 0-1 PERCENT (BEAKER) (test code = 2801) RAD, CHEST, 1 VIEW, NON [id number] 00:00:00Reason for exam:->sobShould this be performed at [...] MDReport Verified Date/Time: 07/23/2018 00:00:17 Reading Location: [address] Consult Reading Room Electronically signed by: MIKE WOODS M.D. on07/23/2018 12:00 AMPOCT-GLUCOSE METER 2018-07-22 21:49:00 Test Item Value Reference Range Interpretation Comments POC-GLUCOSE METER 133 mg/dL 70-110 H TESTED AT [place] [address] ([facility]) (test code = TABATHA Loz[place] [facility] 1538) [address] POCT-GLUCOSE [id number] 16:55:00 Test Item Value Reference Range Interpretation Comments POC-GLUCOSE METER 156 mg/dL 70-110 H TESTED AT [place] [address] ([facility]) (test code = TABATHA Lozano [facility] 1538) [address] POCT-GLUCOSE [id number] 11:33:00 Test Item Value Reference Range Interpretation Comments POC-GLUCOSE METER 164 mg/dL 70-110 H TESTED AT [facility] 67 ([facility]) (test code = TABATHA Lozano [facility] 1538) [address] [id number] 11:29:00 Test Item Value Reference Range Interpretation Comments PARTIAL THROMBOPLASTIN TIME 47.4 seconds 22.5-36.0 H (BEAKER) (test code = 760) PLATELET [id number] 11:14:00 Test Item Value Reference Range Interpretation Comments PLATELET COUNT (BEAKER) (test 105 K/CU MM 150-450 L code = 756) BASIC METABOLIC [id number] 05:57:00 Test Item Value Reference Range Interpretation Comments SODIUM (BEAKER) 138 meq/L 136-145 (test code = 381) POTASSIUM (BEAKER) 4.0 meq/L 3.5-5.1 (test code = 379) CHLORIDE (BEAKER) 109 meq/L 98-107 H (test code = 382) CO2 (BEAKER) (test 23 meq/L 22-29 code = 355) BLOOD UREA NITROGEN 11 mg/dL 7-21 (BEAKER) (test code = 354) CREATININE (BEAKER) 0.73 mg/dL 0.57-1.25 (test code = 358) GLUCOSE RANDOM 149 mg/dL 70-105 H (BEAKER) (test code = 652) CALCIUM (BEAKER) 7.7 mg/dL 8.4-10.2 L (test code = 697) EGFR (BEAKER) (test 104 mL/min/1.73 ESTIM ATED GFR IS code = 1092) sq m NOT ACCURATE CREATININE CLEARANCE IN PREDICTING GLOMERULAR FILTRATION RATE . ESTIMATED GFR I S NOT APPLICABLE FOR DIALYSIS PATIEN TS. [id number] 05:56:00 Test Item Value Reference Range Interpretation Comments PHOSPHORUS (BEAKER) (test code = 3.3 mg/dL 2.3-4.7 604) [id number] 05:56:00 Test Item Value Reference Range Interpretation Comments MAGNESIUM (BEAKER) (test code = 2.0 mg/dL 1.6-2.6 627) CBC W/PLT COUNT & AUTO [id number] 05:34:00 Test Item Value Reference Range Interpretation Comments WHITE BLOOD CELL COUNT (BEAKER) 10.0 K/ L 3.5-10.5 (test code = 775) RED BLOOD CELL COUNT (BEAKER) 3.44 M/ L 4.63-6.08 L (test code = 761) HEMOGLOBIN (BEAKER) (test code = 10.3 GM/DL 13.7-17.5 L 410) HEMATOCRIT (BEAKER) (test code = 31.4 % 40.1-51.0 L 411) MEAN CORPUSCULAR VOLUME (BEAKER) 91.3 fL 79.0-92.2 (test code = 753) MEAN CORPUSCULAR HEMOGLOBIN 29.9 pg 25.7-32.2 (BEAKER) (test code = 751) MEAN CORPUSCULAR HEMOGLOBIN CONC 32.8 GM/DL 32.3-36.5 (BEAKER) (test code = 752) RED CELL DISTRIBUTION WIDTH 14.4 % 11.6-14.4 (BEAKER) (test code = 412) PLATELET COUNT (BEAKER) (test 100 K/CU MM 150-450 L code = 756) MEAN PLATELET VOLUME (BEAKER) 11.1 fL 9.4-12.4 (test code = 754) NUCLEATED RED BLOOD CELLS 0 /100 WBC 0-0 (BEAKER) (test code = 413) NEUTROPHILS RELATIVE PERCENT 82 % (BEAKER) (test code = 429) LYMPHOCYTES RELATIVE PERCENT 10 % (BEAKER) (test code = 430) MONOCYTES RELATIVE PERCENT 7 % (BEAKER) (test code = 431) EOSINOPHILS RELATIVE PERCENT 0 % (BEAKER) (test code = 432) BASOPHILS RELATIVE PERCENT 1 % (BEAKER) (test code = 437) NEUTROPHILS ABSOLUTE COUNT 8.15 K/ L 1.78-5.38 H (BEAKER) (test code = 670) LYMPHOCYTES ABSOLUTE COUNT 0.97 K/ L 1.32-3.57 L (BEAKER) (test code = 414) MONOCYTES ABSOLUTE COUNT (BEAKER) 0.72 K/ L 0.30-0.82 (test code = 415) EOSINOPHILS ABSOLUTE COUNT 0.04 K/ L 0.04-0.54 (BEAKER) (test code = 416) BASOPHILS ABSOLUTE COUNT (BEAKER) 0.05 K/ L 0.01-0.08 (test code = 417) IMMATURE GRANULOCYTES-RELATIVE 0 % 0-1 PERCENT (BEAKER) (test code = 2801) OXYGEN SATURATION, [id number] 05:24:00 Test Item Value Reference Range Interpretation Comments O2 SATURATION (MEASURED) (BEAKER) 62.1 % (test code = 1455) BLOOD GAS, [id number] 05:20:00 Test Item Value Reference Range Interpretation Comments PH ARTERIAL (BEAKER) (test code = 7.40 7.35-7.45 383) PCO2 ARTERIAL (BEAKER) (test code 40 mmHg 35-45 = 384) PO2 ARTERIAL (BEAKER) (test code 83 mmHg 80-90 = 385) O2 SATURATION ARTERIAL (BEAKER) 96.0 % 96.0-97.0 (test code = 386) HCO3 ARTERIAL (BEAKER) (test code 24 mmol/L 21-29 = 388) BASE EXCESS ARTERIAL (BEAKER) -0.2 mmol/L -2.0-3.0 (test code = 387) PATIENT TEMPERATURE (BEAKER) 37.4 C (test code = 1818) FIO2 (BEAKER) (test code = 1819) 40.0 % RAD, CHEST, 1 VIEW, NON [id number] 04:49:00Reason for exam:->s/p cardiac surgeryShould this be performed at the bedside?->YesFINAL REPORT CLINICAL INDICATION: Postop Comparison: 07/21/2018 The cardiomedi astinal contours are stable. The lung volumes are stable after extubation. Central pulmonary vascular prominence and bilateral parenchymal and left pleural opacities are similar to previous. There is no pneumothorax. Remaining support lines are stable. Signed: Roman Ortiz Verified Date/Time: 07/22/2018 04:49:49 Reading Location: [address] Reading Room POCT- GLUCOSE [id number] 03:10:00 Test Item Value Reference Range Interpretation Comments POC-GLUCOSE METER 131 mg/dL 70-110 H TESTED AT [facility] 6720 (BEAKER) (test code = [place] 1538) [id number] LACTIC ACID, [id number] 22:27:00 Test Item Value Reference Range Interpretation Comments LACTATE BLOOD ARTERIAL (2) 2.0 mmol/L 0.5-2.2 (BEAKER) (test code = 2874) [id number] 22:25:00 Test Item Value Reference Range Interpretation Comments MAGNESIUM (BEAKER) (test code = 2.2 mg/dL 1.6-2.6 627) SODIUM NA-STAT [id number] 22:07:00 Test Item Value Reference Range Interpretation Comments SODIUM (BEAKER) (test code = 381) 138 meq/L 135-148 POTASSIUM-STAT [id number] 22:07:00 Test Item Value Reference Range Interpretation Comments POTASSIUM (BEAKER) (test code = 4.1 meq/L 3.6-5.5 379) OXYGEN SATURATION, [id number] 22:07:00 Test Item Value Reference Range Interpretation Comments O2 SATURATION (MEASURED) (BEAKER) 59.7 % (test code = 1455) BLOOD GAS, [id number] 22:07:00 Test Item Value Reference Range Interpretation Comments PH ARTERIAL (BEAKER) (test code = 7.37 7.35-7.45 383) PCO2 ARTERIAL (BEAKER) (test code 42 mmHg 35-45 = 384) PO2 ARTERIAL (BEAKER) (test code 76 mmHg 80-90 L = 385) O2 SATURATION ARTERIAL (BEAKER) 94.6 % 96.0-97.0 L (test code = 386) HCO3 ARTERIAL (BEAKER) (test code 23 mmol/L 21-29 = 388) BASE EXCESS ARTERIAL (BEAKER) -1.7 mmol/L -2.0-3.0 (test code = 387) PATIENT TEMPERATURE (BEAKER) 37.2 C (test code = 1818) FIO2 (BEAKER) (test code = 1819) 40.0 % GLUCOSE-STAT [id number] 22:07:00 Test Item Value Reference Range Interpretation Comments GLUCOSE RANDOM (BEAKER) (test code 113 mg/dL 70-110 H = 652) HGB/HCT (H&H) - STAT [id number] 22:07:00 Test Item Value Reference Range Interpretation Comments HEMOGLOBIN (BEAKER) (test code = 10.9 g/dL 13.0-16.8 L 410) HEMATOCRIT (BEAKER) (test code = 32.0 % 40.0-50.0 L 411) LACTIC ACID, [id number] 20:27:00 Test Item Value Reference Range Interpretation Comments LACTATE BLOOD ARTERIAL (2) 2.1 mmol/L 0.5-2.2 (BEAKER) (test code = 2874) [id number] 20:26:00 Test Item Value Reference Range Interpretation Comments POTASSIUM (BEAKER) (test code = 4.3 meq/L 3.5-5.1 379) [id number] 20:26:00 Test Item Value Reference Range Interpretation Comments GLUCOSE RANDOM (BEAKER) (test code 148 mg/dL 70-105 H = 652) BLOOD GAS, [id number] 20:14:00 Test Item Value Reference Range Interpretation Comments PH ARTERIAL (BEAKER) (test code = 7.38 7.35-7.45 383) PCO2 ARTERIAL (BEAKER) (test code 41 mmHg 35-45 = 384) PO2 ARTERIAL (BEAKER) (test code 143 mmHg 80-90 H = 385) O2 SATURATION ARTERIAL (BEAKER) 98.8 % 96.0-97.0 H (test code = 386) HCO3 ARTERIAL (BEAKER) (test code 24 mmol/L 21-29 = 388) BASE EXCESS ARTERIAL (BEAKER) -1.1 mmol/L -2.0-3.0 (test code = 387) PATIENT TEMPERATURE (BEAKER) 37.1 C (test code = 1818) FIO2 (BEAKER) (test code = 1819) 60.0 % POCT-GLUCOSE [id number] 18:45:00 Test Item Value Reference Range Interpretation Comments POC-GLUCOSE METER 136 mg/dL 70-110 H TESTED AT [facility] [address] (BEAKER) (test code = [place] 1538) [id number] BLOOD GAS, [id number] 17:22:00 Test Item Value Reference Range Interpretation Comments PH ARTERIAL (BEAKER) (test code = 7.40 7.35-7.45 383) PCO2 ARTERIAL (BEAKER) (test code 37 mmHg 35-45 = 384) PO2 ARTERIAL (BEAKER) (test code 107 mmHg 80-90 H = 385) O2 SATURATION ARTERIAL (BEAKER) 98.1 % 96.0-97.0 H (test code = 386) HCO3 ARTERIAL (BEAKER) (test code 23 mmol/L 21-29 = 388) BASE EXCESS ARTERIAL (BEAKER) -1.7 mmol/L -2.0-3.0 (test code = 387) PATIENT TEMPERATURE (BEAKER) 36.3 C (test code = 1818) FIO2 (BEAKER) (test code = 1819) 60.0 % POCT-GLUCOSE [id number] 16:40:00 Test Item Value Reference Range Interpretation Comments POC-GLUCOSE METER 159 mg/dL 70-110 H TESTED AT [facility] [address] (BEAKER) (test code = [place] 1538) [id number] 13:26:00 Test Item Value Reference Range Interpretation Comments MAGNESIUM (BEAKER) 2.4 mg/dL 1.6-2.6 Specimen slightly (test code = 627) hemolyzed [id number] 13:26:00 Test Item Value Reference Range Interpretation Comments PHOSPHORUS (BEAKER) 2.4 mg/dL 2.3-4.7 Specimen slightly (test code = 604) hemolyzed BASIC METABOLIC [id number] 13:26:00 Test Item Value Reference Range Interpretation Comments SODIUM (BEAKER) 139 meq/L 136-145 (test code = 381) POTASSIUM (BEAKER) 4.5 meq/L 3.5-5.1 Specimen slightly (test code = 379) hemolyzed CHLORIDE (BEAKER) 111 meq/L 98-107 H (test code = 382) CO2 (BEAKER) (test 23 meq/L 22-29 code = 355) BLOOD UREA NITROGEN 17 mg/dL 7-21 (BEAKER) (test code = 354) CREATININE (BEAKER) 0.88 mg/dL 0.57-1.25 Specimen slightly (test code = 358) hemolyzed GLUCOSE RANDOM 167 mg/dL 70-105 H (BEAKER) (test code = 652) CALCIUM (BEAKER) 8.4 mg/dL 8.4-10.2 (test code = 697) EGFR (BEAKER) (test 84 mL/min/1.73 ESTIMA STELLA GFR IS code = 1092) sq m NOT ACCURATE CREATININE CLEARANCE IN PREDICTING GLOMERULAR FILTRATION RATE . ESTIMATED GFR I S NOT APPLICABLE FOR DIALYSIS PATIEN TS. LACTIC ACID, [id number] 13:24:00 Test Item Value Reference Range Interpretation Comments LACTATE BLOOD 2.7 mmol/L 0.5-2.2 H Specimen sligh tly ARTERIAL (2) (BEAKER) hemoly zed (test code = 2874) [id number] 13:19:00 Test Item Value Reference Range Interpretation Comments PARTIAL THROMBOPLASTIN TIME 38.9 seconds 22.5-36.0 H (BEAKER) (test code = 760) PROTHROMBIN [id number] 13:18:00 Test Item Value Reference Range Interpretation Comments PROTIME (BEAKER) (test code = 17.4 seconds 11.7-14.7 H 759) INR (BEAKER) (test code = 370) 1.5 <=5.9 RECOMMENDED COUMADIN/WARFARIN INR THERAPY RANGESSTANDARD DOSE: 2.0 - 3.0 Includes: PROPHYLAXIS forvenous thrombosis, systemic embolization; TREATMENT for venous thrombosis and/or pulmonary embolus.HIGH RISK: Target INR is 2.5-3.5 for patients with mechanical heart valves.CBC W/PLT COUNT & AUTO DIFFERENTIAL 2018-07-21 13:15:00 Test Item Value Reference Range Interpretation Comments WHITE BLOOD CELL COUNT (BEAKER) 14.0 K/ L 3.5-10.5 H (test code = 775) RED BLOOD CELL COUNT (BEAKER) 3.92 M/ L 4.63-6.08 L (test code = 761) HEMOGLOBIN (BEAKER) (test code = 11.7 GM/DL 13.7-17.5 L 410) HEMATOCRIT (BEAKER) (test code = 35.6 % 40.1-51.0 L 411) MEAN CORPUSCULAR VOLUME (BEAKER) 90.8 fL 79.0-92.2 (test code = 753) MEAN CORPUSCULAR HEMOGLOBIN 29.8 pg 25.7-32.2 (BEAKER) (test code = 751) MEAN CORPUSCULAR HEMOGLOBIN CONC 32.9 GM/DL 32.3-36.5 (BEAKER) (test code = 752) RED CELL DISTRIBUTION WIDTH 14.6 % 11.6-14.4 H (BEAKER) (test code = 412) PLATELET COUNT (BEAKER) (test 133 K/CU MM 150-450 L code = 756) MEAN PLATELET VOLUME (BEAKER) 10.5 fL 9.4-12.4 (test code = 754) NUCLEATED RED BLOOD CELLS 0 /100 WBC 0-0 (BEAKER) (test code = 413) NEUTROPHILS RELATIVE PERCENT 81 % (BEAKER) (test code = 429) LYMPHOCYTES RELATIVE PERCENT 11 % (BEAKER) (test code = 430) MONOCYTES RELATIVE PERCENT 6 % (BEAKER) (test code = 431) EOSINOPHILS RELATIVE PERCENT 1 % (BEAKER) (test code = 432) BASOPHILS RELATIVE PERCENT 0 % (BEAKER) (test code = 437) NEUTROPHILS ABSOLUTE COUNT 11.35 K/ L 1.78-5.38 H (BEAKER) (test code = 670) LYMPHOCYTES ABSOLUTE COUNT 1.58 K/ L 1.32-3.57 (BEAKER) (test code = 414) MONOCYTES ABSOLUTE COUNT (BEAKER) 0.83 K/ L 0.30-0.82 H (test code = 415) EOSINOPHILS ABSOLUTE COUNT 0.08 K/ L 0.04-0.54 (BEAKER) (test code = 416) BASOPHILS ABSOLUTE COUNT (BEAKER) 0.03 K/ L 0.01-0.08 (test code = 417) IMMATURE GRANULOCYTES-RELATIVE 1 % 0-1 PERCENT (BEAKER) (test code = 2801) RAD, CHEST, 1 VIEW, NON [id number] 13:14:00Reason for exam:->s/p cardiac surgeryShould this be performed at the bedside?->YesFINAL REPORT TECHNIQUE: Frontal chest radiograph dated 07/21/2018. CLINICAL HI STORY: s/p Cardiac surgery COMPARISON STUDY: Chest radiographs [...] [place] Verified Date/Time: 07/21/2018 13:14:32 Reading Location: [facility] Radiology Readi Room BLOOD GAS, [id number] 13:10:00 Test Item Value Reference Range Interpretation Comments PH ARTERIAL (BEAKER) (test code = 7.40 7.35-7.45 383) PCO2 ARTERIAL (BEAKER) (test code 38 mmHg 35-45 = 384) PO2 ARTERIAL (BEAKER) (test code 79 mmHg 80-90 L = 385) O2 SATURATION ARTERIAL (BEAKER) 96.4 % 96.0-97.0 (test code = 386) HCO3 ARTERIAL (BEAKER) (test code 23 mmol/L 21-29 = 388) BASE EXCESS ARTERIAL (BEAKER) -1.8 mmol/L -2.0-3.0 (test code = 387) PATIENT TEMPERATURE (BEAKER) 35.5 C (test code = 1818) FIO2 (BEAKER) (test code = 1819) 60.0 % SODIUM NA-STAT [id number] 13:10:00 Test Item Value Reference Range Interpretation Comments SODIUM (BEAKER) (test code = 381) 134 meq/L 135-148 L GLUCOSE-STAT [id number] 13:10:00 Test Item Value Reference Range Interpretation Comments GLUCOSE RANDOM (BEAKER) (test code 165 mg/dL 70-110 H = 652) HGB/HCT (H&H) - STAT [id number] 13:10:00 Test Item Value Reference Range Interpretation Comments HEMOGLOBIN (BEAKER) (test code = 12.3 g/dL 13.0-16.8 L 410) HEMATOCRIT (BEAKER) (test code = 36.0 % 40.0-50.0 L 411) OXYGEN SATURATION, [id number] 13:09:00 Test Item Value Reference Range Interpretation Comments O2 SATURATION (MEASURED) (BEAKER) 70.2 % (test code = 1455) POTASSIUM-STAT [id number] 13:08:00 Test Item Value Reference Range Interpretation Comments POTASSIUM (BEAKER) (test code = 4.3 meq/L 3.6-5.5 379) [id number] 11:23:00 Test Item Value Reference Range Interpretation Comments ACTIVATED CLOTTING TIME 114 sec TEST ED AT [place] [address] (BEAKER) (test code = [place] [address]) [address] [id number] 11:23:00 Test Item Value Reference Range Interpretation Comments ACTIVATED CLOTTING TIME 719 sec TEST ED AT [place] [address] (BEAKER) (test code = [place] [address]) [address] [id number] 11:23:00 Test Item Value Reference Range Interpretation Comments ACTIVATED CLOTTING TIME 516 sec TEST ED AT [place] [address] (BEAKER) (test code = [place] [address]) [address] [id number] 11:23:00 Test Item Value Reference Range Interpretation Comments ACTIVATED CLOTTING TIME 598 sec TEST ED AT [place] [address] (BEAKER) (test code = [place] [address]) [address] BLOOD GAS, [id number] 11:21:00 Test Item Value Reference Range Interpretation Comments PH ARTERIAL (BEAKER) (test code = 7.33 7.35-7.45 L 383) PCO2 ARTERIAL (BEAKER) (test code 42 mmHg 35-45 = 384) PO2 ARTERIAL (BEAKER) (test code 164 mmHg 80-90 H = 385) O2 SATURATION ARTERIAL (BEAKER) 99.0 % 96.0-97.0 H (test code = 386) HCO3 ARTERIAL (BEAKER) (test code 22 mmol/L 21-29 = 388) BASE EXCESS ARTERIAL (BEAKER) -4.1 mmol/L -2.0-3.0 L (test code = 387) PATIENT TEMPERATURE (BEAKER) 35.5 C (test code = 1818) FIO2 (BEAKER) (test code = 1819) 100.0 % GLUCOSE-STAT [id number] 11:21:00 Test Item Value Reference Range Interpretation Comments GLUCOSE RANDOM (BEAKER) (test code 195 mg/dL 70-110 H = 652) HGB/HCT (H&H) - STAT [id number] 11:21:00 Test Item Value Reference Range Interpretation Comments HEMOGLOBIN (BEAKER) (test code = 11.3 g/dL 13.0-16.8 L 410) HEMATOCRIT (BEAKER) (test code = 33.0 % 40.0-50.0 L 411) CALCIUM, [id number] 11:20:00 Test Item Value Reference Range Interpretation Comments CALCIUM IONIZED (BEAKER) (test 1.19 mmol/L 1.12-1.27 code = 698) PH, BLOOD (BEAKER) (test code = 7.31 1810) SODIUM NA-STAT [id number] 11:18:00 Test Item Value Reference Range Interpretation Comments SODIUM (BEAKER) (test code = 381) 135 meq/L 135-148 POTASSIUM-STAT [id number] 11:18:00 Test Item Value Reference Range Interpretation Comments POTASSIUM (BEAKER) (test code = 4.4 meq/L 3.6-5.5 379) [id number] 11:14:00 Test Item Value Reference Range Interpretation Comments FIBRINOGEN LEVEL (BEAKER) (test 230 mg/dl 225-434 code = 658) [id number] 11:14:00 Test Item Value Reference Range Interpretation Comments PARTIAL THROMBOPLASTIN TIME 41.3 seconds 22.5-36.0 H (BEAKER) (test code = 760) PROTHROMBIN [id number] 11:13:00 Test Item Value Reference Range Interpretation Comments PROTIME (BEAKER) (test code = 19.8 seconds 11.7-14.7 H 759) INR (BEAKER) (test code = 370) 1.8 <=5.9 RECOMMENDED COUMADIN/WARFARIN INR THERAPY RANGESSTANDARD DOSE: 2.0 - 3.0 Includes: PROPHYLAXIS forvenous thrombosis, systemic embolization; TREATMENT for venous thrombosis and/or pulmonary embolus.HIGH RISK: Target INR is 2.5-3.5 for patients with mechanical heart valves.PLATELET [id number] 10:56:00 Test Item Value Reference Range Interpretation Comments PLATELET COUNT (BEAKER) (test code 84 K/CU MM 150-450 L = 756) BLOOD GAS, [id number] 10:44:00 Test Item Value Reference Range Interpretation Comments PH ARTERIAL (BEAKER) (test code = 7.34 7.35-7.45 L 383) PCO2 ARTERIAL (BEAKER) (test code 44 mmHg 35-45 = 384) PO2 ARTERIAL (BEAKER) (test code 164 mmHg 80-90 H = 385) O2 SATURATION ARTERIAL (BEAKER) 99.0 % 96.0-97.0 H (test code = 386) HCO3 ARTERIAL (BEAKER) (test code 23 mmol/L 21-29 = 388) BASE EXCESS ARTERIAL (BEAKER) -2.9 mmol/L -2.0-3.0 L (test code = 387) PATIENT TEMPERATURE (BEAKER) 36.0 C (test code = 1818) FIO2 (BEAKER) (test code = 1819) 100.0 % SODIUM NA-STAT [id number] 10:44:00 Test Item Value Reference Range Interpretation Comments SODIUM (BEAKER) (test code = 381) 134 meq/L 135-148 L GLUCOSE-STAT [id number] 10:44:00 Test Item Value Reference Range Interpretation Comments GLUCOSE RANDOM (BEAKER) (test code 232 mg/dL 70-110 H = 652) HGB/HCT (H&H) - STAT [id number] 10:44:00 Test Item Value Reference Range Interpretation Comments HEMOGLOBIN (BEAKER) (test code = 8.9 g/dL 13.0-16.8 L 410) HEMATOCRIT (BEAKER) (test code = 26.0 % 40.0-50.0 L 411) CALCIUM, [id number] 10:44:00 Test Item Value Reference Range Interpretation Comments CALCIUM IONIZED (BEAKER) (test 1.05 mmol/L 1.12-1.27 L code = 698) PH, BLOOD (BEAKER) (test code = 7.32 1810) POTASSIUM-STAT [id number] 10:43:00 Test Item Value Reference Range Interpretation Comments POTASSIUM (BEAKER) (test code = 5.3 meq/L 3.6-5.5 379) POTASSIUM-STAT [id number] 10:16:00 Test Item Value Reference Range Interpretation Comments POTASSIUM (BEAKER) (test code = 6.8 meq/L 3.6-5.5 HH 379) HGB/HCT (H&H) - STAT [id number] 10:12:00 Test Item Value Reference Range Interpretation Comments HEMOGLOBIN (BEAKER) (test code = 8.1 g/dL 13.0-16.8 L 410) HEMATOCRIT (BEAKER) (test code = 24.0 % 40.0-50.0 L 411) BLOOD GAS, [id number] 10:11:00 Test Item Value Reference Range Interpretation Comments PH ARTERIAL (BEAKER) (test code = 7.41 7.35-7.45 383) PCO2 ARTERIAL (BEAKER) (test code 37 mmHg 35-45 = 384) PO2 ARTERIAL (BEAKER) (test code 284 mmHg 80-90 H = 385) O2 SATURATION ARTERIAL (BEAKER) 99.7 % 96.0-97.0 H (test code = 386) HCO3 ARTERIAL (BEAKER) (test code 24 mmol/L 21-29 = 388) BASE EXCESS ARTERIAL (BEAKER) -1.1 mmol/L -2.0-3.0 (test code = 387) PATIENT TEMPERATURE (BEAKER) 35.5 C (test code = 1818) FIO2 (BEAKER) (test code = 1819) 70.0 % GLUCOSE-STAT [id number] 10:11:00 Test Item Value Reference Range Interpretation Comments GLUCOSE RANDOM (BEAKER) (test code 236 mg/dL 70-110 H = 652) SODIUM NA-STAT [id number] 10:11:00 Test Item Value Reference Range Interpretation Comments SODIUM (BEAKER) (test code = 381) 131 meq/L 135-148 L BLOOD GAS, [id number] 09:44:00 Test Item Value Reference Range Interpretation Comments PH ARTERIAL (BEAKER) (test code = 7.41 7.35-7.45 383) PCO2 ARTERIAL (BEAKER) (test code 41 mmHg 35-45 = 384) PO2 ARTERIAL (BEAKER) (test code = 282 mmHg 80-90 H 385) O2 SATURATION ARTERIAL (BEAKER) 99.7 % 96.0-97.0 H (test code = 386) HCO3 ARTERIAL (BEAKER) (test code 27 mmol/L 21-29 = 388) BASE EXCESS ARTERIAL (BEAKER) 0.4 mmol/L -2.0-3.0 (test code = 387) PATIENT TEMPERATURE (BEAKER) (test 30.0 C code = 1818) FIO2 (BEAKER) (test code = 1819) 70.0 % SODIUM NA-STAT [id number] 09:44:00 Test Item Value Reference Range Interpretation Comments SODIUM (BEAKER) (test code = 381) 133 meq/L 135-148 L POTASSIUM-STAT [id number] 09:44:00 Test Item Value Reference Range Interpretation Comments POTASSIUM (BEAKER) (test code = 5.9 meq/L 3.6-5.5 H 379) GLUCOSE-STAT [id number] 09:44:00 Test Item Value Reference Range Interpretation Comments GLUCOSE RANDOM (BEAKER) (test code 204 mg/dL 70-110 H = 652) HGB/HCT (H&H) - STAT [id number] 09:44:00 Test Item Value Reference Range Interpretation Comments HEMOGLOBIN (BEAKER) (test code = 8.2 g/dL 13.0-16.8 L 410) HEMATOCRIT (BEAKER) (test code = 24.0 % 40.0-50.0 L 411) SODIUM NA-STAT [id number] 09:16:00 Test Item Value Reference Range Interpretation Comments SODIUM (BEAKER) (test code = 381) 132 meq/L 135-148 L POTASSIUM-STAT [id number] 09:16:00 Test Item Value Reference Range Interpretation Comments POTASSIUM (BEAKER) (test code = 5.6 meq/L 3.6-5.5 H 379) HGB/HCT (H&H) - STAT [id number] 09:16:00 Test Item Value Reference Range Interpretation Comments HEMOGLOBIN (BEAKER) (test code = 8.1 g/dL 13.0-16.8 L 410) HEMATOCRIT (BEAKER) (test code = 24.0 % 40.0-50.0 L 411) BLOOD GAS, [id number] 09:15:00 Test Item Value Reference Range Interpretation Comments PH ARTERIAL (BEAKER) (test code = 7.41 7.35-7.45 383) PCO2 ARTERIAL (BEAKER) (test code 35 mmHg 35-45 = 384) PO2 ARTERIAL (BEAKER) (test code 375 mmHg 80-90 H = 385) O2 SATURATION ARTERIAL (BEAKER) 99.8 % 96.0-97.0 H (test code = 386) HCO3 ARTERIAL (BEAKER) (test code 24 mmol/L 21-29 = 388) BASE EXCESS ARTERIAL (BEAKER) -2.5 mmol/L -2.0-3.0 L (test code = 387) PATIENT TEMPERATURE (BEAKER) 30.0 C (test code = 1818) FIO2 (BEAKER) (test code = 1819) 80.0 % GLUCOSE-STAT [id number] 09:15:00 Test Item Value Reference Range Interpretation Comments GLUCOSE RANDOM (BEAKER) (test code 207 mg/dL 70-110 H = 652) [id number] 08:51:00 Test Item Value Reference Range Interpretation Comments ACTIVATED CLOTTING TIME 577 sec TEST ED AT [facility] [address] (BEAKER) (test code = [place] [address]) [address] BLOOD GAS, [id number] 08:20:00 Test Item Value Reference Range Interpretation Comments PH ARTERIAL (BEAKER) (test code = 7.42 7.35-7.45 383) PCO2 ARTERIAL (BEAKER) (test code 42 mmHg 35-45 = 384) PO2 ARTERIAL (BEAKER) (test code = 397 mmHg 80-90 H 385) O2 SATURATION ARTERIAL (BEAKER) 99.8 % 96.0-97.0 H (test code = 386) HCO3 ARTERIAL (BEAKER) (test code 27 mmol/L 21-29 = 388) BASE EXCESS ARTERIAL (BEAKER) 1.7 mmol/L -2.0-3.0 (test code = 387) PATIENT TEMPERATURE (BEAKER) (test 35.7 C code = 1818) FIO2 (BEAKER) (test code = 1819) 100.0 % GLUCOSE-STAT [id number] 08:20:00 Test Item Value Reference Range Interpretation Comments GLUCOSE RANDOM (BEAKER) (test code 132 mg/dL 70-110 H = 652) SODIUM NA-STAT [id number] 08:19:00 Test Item Value Reference Range Interpretation Comments SODIUM (BEAKER) (test code = 381) 138 meq/L 135-148 POTASSIUM-STAT [id number] 08:19:00 Test Item Value Reference Range Interpretation Comments POTASSIUM (BEAKER) (test code = 3.8 meq/L 3.6-5.5 379) HGB/HCT (H&H) - STAT [id number] 08:19:00 Test Item Value Reference Range Interpretation Comments HEMOGLOBIN (BEAKER) (test code = 14.2 g/dL 13.0-16.8 410) HEMATOCRIT (BEAKER) (test code = 42.0 % 40.0-50.0 411) POCT-GLUCOSE [id number] 06:27:00 Test Item Value Reference Range Interpretation Comments POC-GLUCOSE METER 130 mg/dL 70-110 H TESTED AT [facility] 67[facility] (BEAKER) (test code = [place] [facility] 1538) [address] CT, CHEST, WITHOUT [id number] 17:18:00preop AVR ACB assess for calcification aortaAddendum BeginsREPORT STATUS:A Addendum: I agree with the previously described non vascular findings. Signed: Kai Hightower MDReport Verified Date/Time: 07/09/2018 17:18:52 Reading Location: [place] [address] Angio Body Reading RoomAddendum EndsFINAL REPORT CT [...] to the contrast sheet scanned in the [employer] system for the amount and route of [...] calibre. Assessment of the heart is limited wit hout contrast administration. The left ventricle appears to [...] thoracic aorta. Atthe juncture of the transverse arch/proximal descending thoracic aorta, it is mildly tortuous. [...] aorta; 2.9 cm at the diaphragmatic hiatus. NON- VASCULAR: The visualised thyroid gland appears unremarkable. The [...] dictated regarding the non-vascular findings by the [employer] Clerk Radiologist. Signed: Michele Lua Verified Date/Time: 07/09/2018 14:59:04 Reading Location: [place] [address] Cardiology MRI RAD, CHEST, 2 [id number] 14:54:00Reason for exam:->pre opFINAL REPORT Chest, 2 views. Clinical History: pre op Comparison Study: None Findings: The heart and lungs are within normal limits. The aorta is tortuous. The pleural spaces are clear. No significant bony or soft tissue abnormalities are seen. Impression: No active cardiopulmonary disease. Signed: Stanietzky, Luan MDReport Verified Date/Time: 07/09/2018 14:54:20 Reading Location: [facility] [id number] Consult Reading Room HEMOGLOBIN [id number] 14:40:00 Test Item Value Reference Range Interpretation Comments HEMOGLOBIN A1C (BEAKER) (test code = 6.4 % 4.3-6.1 H 368) BASIC METABOLIC [id number] 13:47:00 Test Item Value Reference Range Interpretation Comments SODIUM (BEAKER) 139 meq/L 136-145 (test code = 381) POTASSIUM (BEAKER) 4.5 meq/L 3.5-5.1 (test code = 379) CHLORIDE (BEAKER) 103 meq/L 98-107 (test code = 382) CO2 (BEAKER) (test 27 meq/L 22-29 code = 355) BLOOD UREA NITROGEN 16 mg/dL 7-21 (BEAKER) (test code = 354) CREATININE (BEAKER) 0.87 mg/dL 0.57-1.25 (test code = 358) GLUCOSE RANDOM 109 mg/dL 70-105 H (BEAKER) (test code = 652) CALCIUM (BEAKER) 9.5 mg/dL 8.4-10.2 (test code = 697) EGFR (BEAKER) (test 85 mL/min/1.73 ESTIMA STELLA GFR IS code = 1092) sq m NOT ACCURATE CREATININE CLEARANCE IN PREDICTING GLOMERULAR FILTRATION RATE . ESTIMATED GFR I S NOT APPLICABLE FOR DIALYSIS PATIEN TS. PROTHROMBIN [id number] 13:36:00 Test Item Value Reference Range Interpretation Comments PROTIME (BEAKER) (test code = 16.2 seconds 11.7-14.7 H 759) INR (BEAKER) (test code = 370) 1.4 <=5.9 RECOMMENDED COUMADIN/WARFARIN INR THERAPY RANGESSTANDARD DOSE: 2.0 - 3.0 Includes: PROPHYLAXIS forvenous thrombosis, systemic embolization; TREATMENT for venous thrombosis and/or pulmonary embolus.HIGH RISK: Target INR is 2.5-3.5 for patients with mechanical heart valves.CBC W/PLT COUNT & AUTO DIFFERENTIAL 2018-07-09 13:28:00 Test Item Value Reference Range Interpretation Comments WHITE BLOOD CELL COUNT (BEAKER) 6.1 K/ L 3.5-10.5 (test code = 775) RED BLOOD CELL COUNT (BEAKER) 5.27 M/ L 4.63-6.08 (test code = 761) HEMOGLOBIN (BEAKER) (test code = 15.6 GM/DL 13.7-17.5 410) HEMATOCRIT (BEAKER) (test code = 47.7 % 40.1-51.0 411) MEAN CORPUSCULAR VOLUME (BEAKER) 90.5 fL 79.0-92.2 (test code = 753) MEAN CORPUSCULAR HEMOGLOBIN 29.6 pg 25.7-32.2 (BEAKER) (test code = 751) MEAN CORPUSCULAR HEMOGLOBIN CONC 32.7 GM/DL 32.3-36.5 (BEAKER) (test code = 752) RED CELL DISTRIBUTION WIDTH 14.1 % 11.6-14.4 (BEAKER) (test code = 412) PLATELET COUNT (BEAKER) (test 203 K/CU MM 150-450 code = 756) MEAN PLATELET VOLUME (BEAKER) 10.5 fL 9.4-12.4 (test code = 754) NUCLEATED RED BLOOD CELLS 0 /100 WBC 0-0 (BEAKER) (test code = 413) NEUTROPHILS RELATIVE PERCENT 57 % (BEAKER) (test code = 429) LYMPHOCYTES RELATIVE PERCENT 25 % (BEAKER) (test code = 430) MONOCYTES RELATIVE PERCENT 9 % (BEAKER) (test code = 431) EOSINOPHILS RELATIVE PERCENT 8 % (BEAKER) (test code = 432) BASOPHILS RELATIVE PERCENT 1 % (BEAKER) (test code = 437) NEUTROPHILS ABSOLUTE COUNT 3.47 K/ L 1.78-5.38 (BEAKER) (test code = 670) LYMPHOCYTES ABSOLUTE COUNT 1.51 K/ L 1.32-3.57 (BEAKER) (test code = 414) MONOCYTES ABSOLUTE COUNT (BEAKER) 0.56 K/ L 0.30-0.82 (test code = 415) EOSINOPHILS ABSOLUTE COUNT 0.46 K/ L 0.04-0.54 (BEAKER) (test code = 416) BASOPHILS ABSOLUTE COUNT (BEAKER) 0.06 K/ L 0.01-0.08 (test code = 417) IMMATURE GRANULOCYTES-RELATIVE 0 % 0-1 PERCENT (BEAKER) (test code = 2801)
--- NOTE | 2020-04-16 10:36 | RAD REPORT ---
EXAM DESCRIPTION: CT - [id number] - 04/16/2020 10:19 am CLINICAL HISTORY: Trauma, head and neck injury. PAIN COMPARISON: Facial Bones W/ Mpr dated 04/16/2020 TECHNIQUE: Axial 5 mm thick images of the head were obtained. Axial 2 mm thick images of the cervical spine were obtained with sagittal and coronal reconstruction images generated and reviewed. All CT scans are performed using dose optimization technique as appropriate and may include automated exposure control or mA/KV adjustment according to patient size. FINDINGS: CT HEAD WITHOUT CONTRAST: No acute hemorrhage, hydrocephalus or extra-axial collection is identified.Mild generalized brain atr ophy is present with mild periventricular and deep white matter chronic microvascular ischemic change s.No areas of brain edema or midline shift. The paranasal sinuses and mastoids are clear.Moderate soft tissue swelling is seen right periorbital region.The calvarium is intact. CT CERVICAL SPINE WITHOUT CONTRAST: No fracture or subluxation.Moderate multilevel cervical degenerative changes.No prevertebral soft tis sues swelling is identified. Heavy carotid atherosclerosis. IMPRESSION: No acute intracranial or cervical spine findings.
--- NOTE | 2020-04-16 10:38 | RAD REPORT ---
EXAM DESCRIPTION: CT - CTFB CLINICAL HISTORY: FACIAL PAIN Trauma, pain COMPARISON: No comparisons TECHNIQUE: Axial 2 mm thick images of the face were obtained with sagittal and coronal reconstructio n images. All CT scans are performed using dose optimization technique as appropriate and may include automated exposure control or mA/KV adjustment according to patient size. FINDINGS: Slight discontinuity of the right nasal bone is seen suggesting mild right nasal bone frac ture. Moderate soft tissue swelling is present about the right periorbital region.The mandible is int act. The globes and orbital contents are grossly unremarkable.The paranasal sinuses and mastoids are clear . IMPRESSION: Mild right sided nasal bone fracture. Moderate soft tissue swelling right periorbital location.
--- NOTE | 2020-04-16 11:01 | ER ---
Nurse's Notes [facility] Name: Franklin Castro Age: 79 yrs Sex: Male : 1940 Arrival Date: 04/16/2020 Time: 10:00 Bed 8 Private MD: Zuly Jones C Diagnosis: Superficial injury of head;Fall on same level from slipping, tripping and stumbling Presentation: 04/16 10:10 Chief complaint: Patient states: tripped and fell while taking out trash this morning, iw fell face first to ground, hematoma to right eyebrow area, denies LOC, denies headache or dizziness, takes xarelto and aspirin. Care prior to arrival: None. Mechanism of Injury: Fall. Trauma event details: Injury occurred in the [facility]. 10:10 Acuity: JIMY 3 iw 10:10 Method Of Arrival: Wheelchair iw 10:15 Coronavirus screen: At this time, the client does not indicate any symptoms associated iw with coronavirus-19. Ebola Screen: Patient negative for fever greater than or equal to 101.5 degrees Fahrenheit, and additional compatible Ebola Virus Disease symptoms Patient denies exposure to infectious person. Patient denies travel to an Ebola-affected area in the 21 days before illness onset. No symptoms or risks identified at this time. Initial Sepsis Screen: Does the patient meet any 2 criteria? No. Patient's initial sepsis screen is negative. Does the patient have a suspected source of infection? No. Patient's initial sepsis screen is negative. Risk Assessment: Do you want to hurt yourself or someone else? Patient reports no desire to harm self or others. Onset of symptoms was April 16, 2020. Trauma Activation: Alert Physician: ED Physician; Name: Dr. Tello/JAMISON Clark; Notified At: 10:07; Arrived At: 10:07 Physician: General Surgeon; Name: N/A; Notified At: 10:07; Arrived At: 10:07 Physician: Radiology; Name: Rosenda; Notified At: 10:07; Arrived At: 10:07 Physician: Respiratory; Name: N/a; Notified At: 10:07; Arrived At: Physician: Sara; Name: N/A; Notified At: 10:07; Arrived At: Historical: - Allergies: 10:14 No Known Allergies; iw - Home Meds: 10:14 amiodarone 200 mg Oral tab 1 tab 2 times per day [Active]; Xarelto 10 mg Oral tab 1 tab iw once daily [Active]; aspirin 81 mg Oral TbEC 1 tab once daily [Active]; atorvastatin 20 mg Oral tab 1 tab once daily [Active]; donepezil 10 mg Oral tab 1 tab once daily [Active]; duloxetine 20 mg Oral cpDR 1 cap daily [Active]; levothyroxine 125 mcg tab 1 tab once daily [Active]; lisinopril 10 mg Oral tab 1 tab once daily [Active]; metformin 500 mg Oral Tb24 1 tab once daily [Active]; metoprolol tartrate 50 mg Oral tab 1 tab 2 times per day [Active]; Nitrostat 0.4 mg SL subl [Active]; tramadol 50 mg Oral tab 1 tab every 4-6 hours [Active]; - PMHx: 10:14 Dementia; Diabetes - NIDDM; Hypertension; Hypothyroidism; throat cancer; iw - PSHx: 10:14 Hernia repair; Tonsillectomy; left hip replacement; Vasectomy; Valve replacement; iw - Immunization history: Last tetanus immunization:. - Social history:: Smoking status: unknown. Screenin:15 Abuse screen: Denies threats or abuse. Denies injuries from another. Tuberculosis iw screening: No symptoms or risk factors identified. 10:47 Nutritional screening: No deficits noted. Fall Risk Fall in past 12 months (25 points). jd3 Mental Status- Oriented to own ability (0 pts). Total Joshua Fall Scale indicates Low Risk Score (25-44 pts). Fall prevention measures have been instituted. Side Rails Up X 2 Placed close to Nursing Station Frequent Obs/Assesments occuring. Primary Survey: 10:12 NO uncontrolled hemorrhage observed. A: The patient is alert. Airway: patent. iw Breathing/Chest: Respiratory pattern: regular. Circulation: Pulses: palpable . Disability Alert. Exposure/Environment: All clothing and personal items were removed. Forensic evidence collection is not deemed to be indicated at this time. Items placed in patient belonging bag. 10:46 Reassessment Airway Airway Patent Breathing/Chest Respiratory pattern Regular jd3 Respiratory effort Spontaneous Unlabored Chest inspection Symmetrical Circulation Pulses Palpable Color [place] Temperature Warm Disability Alert. Secondary Survey: 10:15 HEENT: Eyes: Other swelling to right eye with bruising. Gastrointestinal: No deficits jd3 noted. : No signs and/or symptoms were reported regarding the genitourinary system. Musculoskeletal: Circulation, motion, and sensation intact. Range of motion: intact in all extremities. Assessment: 10:15 General: Appears in no apparent distress. comfortable, Behavior is calm, cooperative, jd3 appropriate for age. Pain: Complains of pain in right eye Quality of pain is described as aching. Neuro: Level of Consciousness is awake, alert, obeys commands, Oriented to person, place, time, situation. Cardiovascular: Capillary refill < 3 seconds Patient's skin is warm and dry. Respiratory: Airway is patent Respiratory effort is even, unlabored, Respiratory pattern is regular, symmetrical, Denies cough, shortness of breath. GI: No signs and/or symptoms were reported involving the gastrointestinal system. : No signs and/or symptoms were reported regarding the genitourinary system. EENT: Eyes swelling noted to right eye. Derm: Skin is intact, Skin is dry, Skin is normal, Skin temperature is warm. Musculoskeletal: Circulation, motion, and sensation intact. Range of motion: intact in all extremities. 10:20 Reassessment: Patient and/or family updated on plan of care and expected duration. Pain jd3 level reassessed. Patient is alert, oriented x 3, equal unlabored respirations, skin warm/dry/pink. ice pack applied to injury. 11:12 Reassessment: Patient appears in no apparent distress at this time. Patient and/or jd3 family updated on plan of care and expected duration. Pain level reassessed. Patient is alert, oriented x 3, equal unlabored respirations, skin warm/dry/pink. pt assisted to front of ER and into vehicle with family Patient denies pain at this time. Vital Signs: 10:14 BP 180 / 98; Pulse 89; Resp 16; Temp 98.0; Pulse Ox 98% on R/A; iw 10:46 BP 160 / 90; Pulse 62; Resp 17 S; Pulse Ox 97% on R/A; jd3 [place] Coma Score: 10:15 Eye Response: spontaneous(4). Verbal Response: oriented(5). Motor Response: obeys jd3 commands(6). Total: 15. 10:46 Eye Response: spontaneous(4). Verbal Response: oriented(5). Motor Response: obeys jd3 commands(6). Total: 15. Trauma Score (Adult): 10:15 Eye Response: spontaneous(1); Verbal Response: oriented(1); Motor Response: obeys jd3 commands(2); Systolic BP: > 89 mm Hg(4); Respiratory Rate: 10 to 29 per min(4); [place] Score: 15; Trauma Score: 12 10:46 Eye Response: spontaneous(1); Verbal Response: oriented(1); Motor Response: obeys jd3 commands(2); Systolic BP: > 89 mm Hg(4); Respiratory Rate: 10 to 29 per min(4); [place] Score: 15; Trauma Score: 12 ED Course: 10:00 Patient arrived in ED. ag5 10:01 Zuly Jones MD is Private Physician. ag5 10:04 Eduardo Mello NP is PHCP. pm1 10:04 Joselo Tello MD is Attending Physician. pm1 10:12 Triage completed. iw 10:15 Arm band placed on. iw 10:19 Dennys Kc RN is Primary Nurse. jd3 10:19 CT Head C Spine In Process Unspecified. EDMS 10:20 CT Facial Bones W/O Con In Process Unspecified. EDMS 10:47 Patient has correct armband on for positive identification. Bed in low position. Call jd3 light in reach. Side rails up X2. Pulse ox on. NIBP on. 10:47 Patient maintains SpO2 saturation greater than 95% on room air. jd3 10:47 Thermoregulation: warm blanket given to patient. jd3 11:11 No provider procedures requiring assistance completed. Patient did not have IV access jd3 during this emergency room visit. Administered Medications: 10:56 Drug: Tetanus-Diphtheria Toxoid Adult 0.5 ml {Hospice Liaison: [employer]. Exp: jl7 06/24/2021. Lot #: [id number]. } Route: IM; Site: left deltoid; 11:04 Follow up: Response: No adverse reaction jl7 Intake: 11:12 PO: 0ml; Total: 0ml. jd3 Output: 11:12 Urine: 0ml; Total: 0ml. jd3 Outcome: 11:00 Discharge ordered by MD. pm1 11:12 Discharged to home via wheelchair, with family. jd3 11:12 Condition: stable 11:12 Discharge instructions given to patient, Instructed on discharge instructions, follow up and referral plans. wound care, Demonstrated understanding of instructions, follow-up care. 11:12 Patient's length of stay was not longer than 2 hours. jd3 11:13 Patient left the ED. jd3 Signatures: Dispatcher [employer] EDNicole Butler, RN RN iw Eduardo Mello NP ASSISTANT STORE MANAGER TRAINEE pm1 Julia Orellana RN RN jl7 Dennys Kc RN RN jd3 Angelic Cruz ag5 Corrections: (The following items were deleted from the chart) 10:49 10:46 Pulse 62bpm; Resp 17bpm; Spontaneous; Pulse Ox 97% RA; jd3 jd3
--- NOTE | 2020-04-16 11:01 | EDPHYS ---
Physician Documentation [facility] Name: Franklin Castro Age: 79 yrs Sex: Male : 1940 Arrival Date: 04/16/2020 Time: 10:00 Bed 8 Private MD: Zuly Jones C ED Physician Joselo Tello HPI: 04/16 10:42 This 79 yrs old Male presents to ER via Wheelchair with complaints of Fall pm1 Injury, Facial Injury. 10:42 Details of fall: The patient fell from an upright position, while walking. Onset: The pm1 symptoms/episode began/occurred just prior to arrival. Associated injuries: The patient sustained right eye, swelling. Severity of symptoms: in the emergency department the symptoms are unchanged. The patient has not experienced similar symptoms in the past. Patient was taking out the garbage and he tripped on the uneven surface of the concrete. Negative LOC, headache, neck pain, n/v. Presents to the ER with swelling to lateral aspect of right eyebrow. Historical: - Allergies: 10:14 No Known Allergies; iw - Home Meds: 10:14 amiodarone 200 mg Oral tab 1 tab 2 times per day [Active]; Xarelto 10 mg Oral tab 1 tab iw once daily [Active]; aspirin 81 mg Oral TbEC 1 tab once daily [Active]; atorvastatin 20 mg Oral tab 1 tab once daily [Active]; donepezil 10 mg Oral tab 1 tab once daily [Active]; duloxetine 20 mg Oral cpDR 1 cap daily [Active]; levothyroxine 125 mcg tab 1 tab once daily [Active]; lisinopril 10 mg Oral tab 1 tab once daily [Active]; metformin 500 mg Oral Tb24 1 tab once daily [Active]; metoprolol tartrate 50 mg Oral tab 1 tab 2 times per day [Active]; Nitrostat 0.4 mg SL subl [Active]; tramadol 50 mg Oral tab 1 tab every 4-6 hours [Active]; - PMHx: 10:14 Dementia; Diabetes - NIDDM; Hypertension; Hypothyroidism; throat cancer; iw - PSHx: 10:14 Hernia repair; Tonsillectomy; left hip replacement; Vasectomy; Valve replacement; iw - Immunization history: Last tetanus immunization:. - Social history:: Smoking status: unknown. ROS: 10:42 Constitutional: Negative for fever, chills, and weight loss. pm1 10:42 ENT: Negative for injury, pain, and discharge, Neck: Negative for injury, pain, and swelling, Cardiovascular: Negative for chest pain, palpitations, and edema, Respiratory: Negative for shortness of breath, cough, wheezing, and pleuritic chest pain, Abdomen/GI: Negative for abdominal pain, nausea, vomiting, diarrhea, and constipation, Back: Negative for injury and pain, MS/Extremity: Negative for injury and deformity. 10:42 Neuro: Negative for headache, weakness, numbness, tingling, and seizure. 10:42 Eyes: Positive for swelling, and abrasion of the lateral aspect of right eyebrow. 10:42 Skin: Positive for abrasion(s), of the medial aspect of proximal phalanx of right little finger. Exam: 10:42 Constitutional: This is a well developed, well nourished patient who is awake, alert, pm1 and in no acute distress. 10:42 Neck: Trachea midline, no thyromegaly or masses palpated, and no cervical lymphadenopathy. Supple, full range of motion without nuchal rigidity, or vertebral point tenderness. No Meningismus. Chest/axilla: Normal chest wall appearance and motion. Nontender with no deformity. No lesions are appreciated. 10:42 Back: No spinal tenderness. No costovertebral tenderness. Full range of motion. MS/ Extremity: Pulses equal, no cyanosis. Neurovascular intact. Full, normal range of motion. 10:42 Head/face: Noted is no obvious of injury or deformity except abrasion(s), that are mild, of the outer aspect of right eyebrow, contusion, that is superficial, of the outer aspect of right eyebrow. 10:42 Eyes: Pupils: no acute changes, normal size, shape is regular, Extraocular movements: no acute changes, Conjunctiva: no acute changes, no chemosis, no exudate, no injection, no subconjunctival hemorrhage no abnormal tearing, Anterior chamber: normal, no hyphema. 10:42 Cardiovascular: Exam negative for acute changes, Rate: normal, Rhythm: regular, Pulses: no pulse deficits are appreciated. 10:42 Respiratory: Exam negative for acute changes, respiratory distress, shortness of breath. 10:42 Abdomen/GI: Exam negative for acute changes, Inspection: abdomen appears normal, Palpation: abdomen is soft and non-tender, in all quadrants. 10:42 Skin: Appearance: normal except for affected area, injury, abrasion(s), small abrasion noted, of the lateral aspect of right eyebrow and medial aspect of right little finger. 10:42 Neuro: Exam negative for acute changes, Orientation: is normal, Mentation: is normal, Motor: is normal, moves all fours. Vital Signs: 10:14 BP 180 / 98; Pulse 89; Resp 16; Temp 98.0; Pulse Ox 98% on R/A; iw 10:46 BP 160 / 90; Pulse 62; Resp 17 S; Pulse Ox 97% on R/A; jd3 [place] Coma Score: 10:15 Eye Response: spontaneous(4). Verbal Response: oriented(5). Motor Response: obeys jd3 commands(6). Total: 15. 10:46 Eye Response: spontaneous(4). Verbal Response: oriented(5). Motor Response: obeys jd3 commands(6). Total: 15. Trauma Score (Adult): 10:15 Eye Response: spontaneous(1); Verbal Response: oriented(1); Motor Response: obeys jd3 commands(2); Systolic BP: > 89 mm Hg(4); Respiratory Rate: 10 to 29 per min(4); [place]on Score: 15; Trauma Score: 12 10:46 Eye Response: spontaneous(1); Verbal Response: oriented(1); Motor Response: obeys jd3 commands(2); Systolic BP: > 89 mm Hg(4); Respiratory Rate: 10 to 29 per min(4); [place] Score: 15; Trauma Score: 12 MDM: 10:12 Patient medically screened. pm1 10:59 Data reviewed: vital signs. Data interpreted: Pulse oximetry: on room air is 97 %. pm1 Interpretation: normal. Counseling: I had a detailed discussion with the patient and/or guardian regarding: the historical points, exam findings, and any diagnostic results supporting the discharge/admit diagnosis, radiology results, the need for outpatient follow up, to return to the emergency department if symptoms worsen or persist or if there are any questions or concerns that arise at home. 04/16 10:12 Order name: CT Head C Spine; Complete Time: 10:42 pm1 04/16 10:12 Order name: CT Facial Bones W/O Con; Complete Time: 10:42 pm1 04/16 10:12 Order name: Ice pack; Complete Time: 10:26 pm1 Administered Medications: 10:56 Drug: Tetanus-Diphtheria Toxoid Adult 0.5 ml {Maintenance Truck Driver: [employer]. Exp: jl7 06/24/2021. Lot #: [id number]. } Route: IM; Site: left deltoid; 11:04 Follow up: Response: No adverse reaction jl7 Disposition: 12:09 Co-signature as Attending Physician, Joselo Tello MD. rn Disposition: 04/16/20 11:00 Discharged to Home. Impression: Superficial injury of head, Fall on same level from slipping, tripping and stumbling. - Condition is Stable. - Discharge Instructions: Head Injury, Adult, Fall Prevention in the Home, Facial or Scalp Contusion, [id number]. - Medication Reconciliation Form, Thank You Letter, Antibiotic Education, Prescription Opioid Use form. - Follow up: Emergency Department; When: As needed; Reason: Worsening of condition. Follow up: Private Physician; When: 2 - 3 days; Reason: Recheck today's complaints, Continuance of care, Re-evaluation by your physician. - Problem is new. - Symptoms have improved. Signatures: Dispatcher [employer] EDNicole Butler RN RN iw Nieto, Roman, MD MD rn Marinas, Patrick, TITLE I ASSISTANT TITLE I ASSISTANT pm1 Julia Orellana RN RN jl7 Dennys Kc RN RN jd3 Corrections: (The following items were deleted from the chart) 11:13 11:00 04/16/2020 11:00 Discharged to Home. Impression: Superficial injury of head; Fall jd3 on same level from slipping, tripping and stumbling. Condition is Stable. Forms are Medication Reconciliation Form, Thank You Letter, Antibiotic Education, Prescription Opioid Use. Follow up: Emergency Department; When: As needed; Reason: Worsening of condition. Follow up: Private Physician; When: 2 - 3 days; Reason: Recheck today's complaints, Continuance of care, Re-evaluation by your physician. Problem is new. Symptoms have improved. pm1
[2020-04-16] MEDS ORDERED: TETANUS & DIPHTHERIA TOX,ADULT 0.5 ML VIAL ONE (11:09)
[2020-04-16 11:18] VITALS: TEMP 98
[2020-04-16 11:20] VITALS: BP 160/90; O2SAT 97
== END 2020-04-16 11:13 | disposition home or self-care (01) ==
LOC: ER 09:59
DX: S00.90XA Unspecified superficial injury of unspecified part of head, initial encounter (principal); W01.0XXA Fall on same level from slipping, tripping and stumbling without subsequent striking against object, initial encounter; Y93.01 Activity, walking, marching and hiking; Y92.009 Unspecified place in unspecified non-institutional (private) residence as the place of occurrence of the external cause; Z23 Encounter for immunization; Z79.01 Long term (current) use of anticoagulants; Z79.82 Long term (current) use of aspirin; Z85.21 Personal history of malignant neoplasm of larynx; I10 Essential (primary) hypertension; E03.9 Hypothyroidism, unspecified; E11.9 Type 2 diabetes mellitus without complications; F03.90 Unspecified dementia, unspecified severity, without behavioral disturbance, psychotic disturbance, mood disturbance, and anxiety
CPT/HCPCS: 70450; 70486; 72125; 76377; 90471; 90714; 99284; G0390

== ENCOUNTER 2020-04-19 11:35 | Emergency (ER) | payer OTHER ==
[2020-04-19 12:11] LABS: Absolute Lymphocytes (CBC) 1.2 K/uL (0.7-4.9); Basophils % 0.4 % (0-1.3); Hematocrit 43.7 % (39.6-49.0); Lymphocytes % 10.4 % (15.3-44.8); MPV 9.2 fL (7.6-11.3); RBC Red Blood Cell Count 4.86 M/uL (4.33-5.43)
[2020-04-19 12:12] LABS: Protime INR 1.48
--- NOTE | 2020-04-19 12:13 | RAD REPORT ---
EXAM DESCRIPTION: CT - Head Brain Wo Cont - 04/19/2020 12:02 pm CLINICAL HISTORY: WEAKNESS, fall, unsteady gait COMPARISON: Head C Spine Mpr Wo Con dated 04/16/2020; Head Brain Wo Cont dated 03/01/2019 TECHNIQUE: Axial 5 mm thick images of the head were obtained without IV contrast. All CT scans are performed using dose optimization technique as appropriate and may include automated exposure control or mA/KV adjustment according to patient size. FINDINGS: A small right-sided subdural hematoma is present along the lateral aspect of the right tem poral lobe and lateral inferior aspects of the posterior right frontal and right temporal lobes. Smal l amount of subdural blood is seen along the right-side tentorium. Subdural measures up to 7 mm in th ickness. There is no measurable mass effect and no midline shift present. No intraparenchymal hematom a and no measurable subarachnoid blood. No acute cortical based infarction identified. No cortical edema or sulcal effacement seen. Patient has moderate severity atrophy with ventricles in proportion to the volume loss. Chronic ischemic martinez ges are present as well. No abnormal extra-axial fluid collections. Dense arterial tree calcification s are present. Mastoid air cells and visualized portions of the paranasal sinuses are clear. No skull fracture is identified. Patient has a small right periorbital scalp hematoma. Orbital bones appear intact. Findings telephoned to Dr. Vera 12:10 p.m. IMPRESSION: Small right-sided acute subdural hematoma and small amount of subdural blood along the r ight-side tentorium. The acute right-sided subdural measures up to 7 mm in thickness but creates no measurable mass effect and no midline shift. No intraparenchymal abnormality. Atrophy and chronic ischemic change match comparison.
[2020-04-19 12:28] LABS: ALT/SGPT 23 U/L (12-78); AST/SGOT 19 U/L (15-37); Albumin 3.5 g/dL (3.4-5.0); Alkaline Phosphatase 115 U/L (45-117); BUN Blood Urea Nitrogen 14 mg/dL (7-18); Bicarbonate 29 mmol/L (21-32); Bilirubin Direct 0.2 mg/dL (0-0.2); Bilirubin Total 0.8 mg/dL (0.2-1.0); Glucose Level 152 mg/dL (74-106); Magnesium 2.1 mg/dL (1.8-2.4); NT PRO-BNP 1065 pg/mL (<450); Potassium 4.6 mmol/L (3.5-5.1); Protein, Total 8.2 g/dL (6.4-8.2); Sodium Level 139 mmol/L (136-145); Troponin (Emerg Dept Use Only) < 0.02 ng/mL (0.0-0.045)
--- NOTE | 2020-04-19 12:52 | RAD REPORT ---
EXAM DESCRIPTION: Gwen Single View04/19/2020 12:23 pm CLINICAL HISTORY: Chest pain COMPARISON: 2019 FINDINGS: The lungs appear clear of acute infiltrate. The heart is mildly enlarged. Postsurgical changes involve the chest. IMPRESSION: No acute abnormalities displayed
--- NOTE | 2020-04-19 13:18 | EDPHYS ---
Physician Documentation [facility] Name: Franklin Castro Age: 79 yrs Sex: Male : 1940 Arrival Date: 04/19/2020 Time: 11:38 Bed 5 Private MD: ED Physician Hector Vera HPI: 04/19 11:55 This 79 yrs old Male presents to ER via EMS with complaints of General kdr Weakness. 11:55 The patient states that he fell about a week ago, tripping on some trash in the [facility] driveway. He denies LOC but has apparent head injury with "raccoon eyes." Today he states he feel generally weak and that his "legs don't seem to want to work." He has no focal c/o other than to say he doesn't feel right. Onset: The symptoms/episode began/occurred gradually, 1 week(s) ago. Severity of symptoms: At their worst the symptoms were mild moderate just prior to arrival, in the emergency department the symptoms are unchanged. The patient has not experienced similar symptoms in the past. The patient has not recently seen a physician. The patient states that he was falling last year as well but no reason was found at that time. Historical: - Allergies: 11:43 No Known Allergies; jd3 - Home Meds: 11:43 aspirin 81 mg Oral TbEC 1 tab once daily [Active]; atorvastatin 20 mg Oral tab 1 tab jd3 once daily [Active]; donepezil 10 mg Oral tab 1 tab once daily [Active]; levothyroxine 125 mcg tab 1 tab once daily [Active]; duloxetine 20 mg Oral cpDR 1 cap daily [Active]; metformin 500 mg Oral Tb24 1 tab once daily [Active]; metoprolol tartrate 50 mg Oral tab 1 tab 2 times per day [Active]; lisinopril 10 mg Oral tab 1 tab once daily [Active]; Nitrostat 0.4 mg SL subl [Active]; amiodarone 200 mg Oral tab 1 tab 2 times per day [Active]; tramadol 50 mg Oral tab 1 tab every 4-6 hours [Active]; Xarelto 10 mg Oral tab 1 tab once daily [Active]; - PMHx: 11:43 throat cancer; Dementia; Diabetes - NIDDM; Hypertension; Hypothyroidism; jd3 - PSHx: 11:43 Tonsillectomy; Hernia repair; left hip replacement; Vasectomy; Valve replacement; jd3 - Immunization history:: Adult Immunizations up to date. - Social history:: Smoking status: Patient denies any tobacco usage or history of. ROS: 11:55 Constitutional: Negative for fever, chills, and weight loss, ENT: Negative for injury, kdr pain, and discharge, Neck: Negative for injury, pain, and swelling, Cardiovascular: Negative for chest pain, palpitations, and edema, Respiratory: Negative for shortness of breath, cough, wheezing, and pleuritic chest pain, Abdomen/GI: Negative for abdominal pain, nausea, vomiting, diarrhea, and constipation, Back: Negative for injury and pain, : Negative for injury, bleeding, discharge, and swelling, MS/Extremity: Negative for injury and deformity, Skin: Negative for injury, rash, and discoloration, Psych: Negative for depression, anxiety, suicide ideation, homicidal ideation, and hallucinations, Allergy/Immunology: Negative for hives, rash, and allergies, Endocrine: Negative for neck swelling, polydipsia, polyuria, polyphagia, and marked weight changes, Hematologic/Lymphatic: Negative for swollen nodes, abnormal bleeding, and unusual bruising. 11:55 Eyes: Positive for swelling, "Raccoon eyes". 11:55 Neuro: Positive for weakness, Negative for altered mental status, dizziness, headache, hearing loss, loss of consciousness, numbness, seizure activity, speech changes, syncope, near syncope, tingling, tinnitus, tremor, visual changes. Exam: 11:55 Constitutional: This is a well developed, well nourished patient who is awake, alert, kdr and in no acute distress. Head/Face: Normocephalic, atraumatic. Neck: Trachea midline, no thyromegaly or masses palpated, and no cervical lymphadenopathy. Supple, full range of motion without nuchal rigidity, or vertebral point tenderness. No Meningismus. Chest/axilla: Normal chest wall appearance and motion. Nontender with no deformity. No lesions are appreciated. Cardiovascular: Regular rate and rhythm with a normal S1 and S2. No gallops, murmurs, or rubs. Normal PMI, no JVD. No pulse deficits. Respiratory: Lungs have equal breath sounds bilaterally, clear to auscultation and percussion. No rales, rhonchi or wheezes noted. No increased work of breathing, no retractions or nasal flaring. Abdomen/GI: Soft, non-tender, with normal bowel sounds. No distension or tympany. No guarding or rebound. No evidence of tenderness throughout. Back: No spinal tenderness. No costovertebral tenderness. Full range of motion. Skin: Warm, dry with normal turgor. Normal color with no rashes, no lesions, and no evidence of cellulitis. MS/ Extremity: Pulses equal, no cyanosis. Neurovascular intact. Full, normal range of motion. Neuro: Awake and alert, GCS 15, oriented to person, place, time, and situation. Cranial nerves II-XII grossly intact. Motor strength 5/5 in all extremities. Sensory grossly intact. Cerebellar exam normal. Normal gait. Psych: Awake, alert, with orientation to person, place and time. Behavior, mood, and affect are within normal limits. 11:55 Eyes: Periorbital structures: swelling, that is mild, bilaterally, ecchymosis, bilaterally. 15:53 ECG was reviewed by the Attending Physician. kdr Vital Signs: 11:41 BP 143 / 96; Pulse 100; Resp 17 S; Temp 98.7(TE); Pulse Ox 96% on R/A; Weight 99.79 kg jd3 (R); Height 5 ft. 9 in. (175.26 cm) (R); Pain 0/10; 12:30 BP 130 / 89; Pulse 95; Resp 18; Pulse Ox 96% on R/A; aa5 13:30 BP 137 / 96; Pulse 99; Resp 16 S; Pulse Ox 96% on R/A; aa5 14:30 BP 147 / 94; Pulse 105; Resp 18 S; Pulse Ox 95% on R/A; aa5 17:00 BP 135 / 90; Pulse 108; Resp 18 S; Temp 98.5(TE); Pulse Ox 96% on R/A; aa5 11:41 Body Mass Index 32.49 (99.79 kg, 175.26 cm) jd3 MDM: 13:17 Patient medically screened. kdr 13:17 Data reviewed: vital signs, nurses notes, lab test result(s), radiologic studies. kdr Counseling: I had a detailed discussion with the patient and/or guardian regarding: the historical points, exam findings, and any diagnostic results supporting the discharge/admit diagnosis, lab results, radiology results, the need to transfer to another facility. 04/19 11:42 Order name: Basic Metabolic Panel kdr 04/19 11:42 Order name: CBC with Diff kdr 04/19 11:42 Order name: LFT's; Complete Time: 13:12 kdr 04/19 11:42 Order name: Magnesium; Complete Time: 13:12 kdr 04/19 11:42 Order name: NT PRO-BNP; Complete Time: 13:12 kdr 04/19 11:42 Order name: PT-INR; Complete Time: 13:12 kdr 04/19 11:42 Order name: Troponin (emerg Dept Use Only); Complete Time: 13:12 kdr 04/19 11:42 Order name: XRAY Chest (1 view); Complete Time: 13:12 kdr 04/19 11:42 Order name: EKG; Complete Time: 11:43 kdr 04/19 11:42 Order name: Cardiac monitoring; Complete Time: 12:00 kdr 04/19 11:42 Order name: Basic Metabolic Panel; Complete Time: 13:12 EDMS 04/19 11:42 Order name: CBC with Automated Diff; Complete Time: 13:12 EDOR 04/19 11:49 Order name: CT Head Brain wo Cont; Complete Time: 13:12 kdr 04/19 11:42 Order name: EKG - Nurse/Tech; Complete Time: 12:37 kdr 04/19 11:42 Order name: IV Saline Lock; Complete Time: 12:00 [facility] 04/19 11:42 Order name: Labs collected and sent; Complete Time: 12:00 kdr 04/19 11:42 Order name: O2 Per Protocol; Complete Time: 12:00 [facility] 04/19 11:42 Order name: O2 Sat Monitoring; Complete Time: 12:00 kdr EC:53 Rate is 99 beats/min. Rhythm is regular, Sinus Rhythm with No ectopy. QRS [place] is kdr Normal. MD interval is normal. QRS interval is normal. Clinical impression: NSR w/ Non-specific ST/T Changes. Administered Medications: No medications were administered Disposition: 04/19/20 13:17 Transfer ordered to [facility]. Diagnosis are Weakness, Traumatic subdural hemorrhage - Right sided. - Reason for transfer: Higher level of care. - Accepting physician is Neuro/[facility]. - Condition is Fair. - Problem is new. - Symptoms are unchanged. Signatures: Dispatcher [employer] EDHector Wilks MD MD kdr Dennys Kc RN RN jd3 Corrections: (The following items were deleted from the chart) 13:58 13:17 04/19/2020 13:17 Transfer ordered to [facility]. Diagnosis is kdr Weakness; Traumatic subdural hemorrhage - Right sided. Reason for transfer: Higher level of care. Accepting physician is [place]. Condition is Fair. Problem is new. Symptoms are unchanged. kdr 17:33 13:58 04/19/2020 13:17 Transfer ordered to [facility]. Diagnosis is jd3 Weakness; Traumatic subdural hemorrhage - Right sided. Reason for transfer: Higher level of care. Accepting physician is Neuro/[facility]. Condition is Fair. Problem is new. Symptoms are unchanged. kdr
--- NOTE | 2020-04-19 13:18 | ER ---
Nurse's Notes [facility] Name: Franklin Castro Age: 79 yrs Sex: Male : 1940 Arrival Date: 04/19/2020 Time: 11:38 Bed 5 Private MD: Diagnosis: Weakness;Traumatic subdural hemorrhage-Right sided Presentation: 04/19 11:38 Chief complaint: EMS states: "Pt is having generalized weakness that started today. jd3 said that he is unsteady and ended up urinating on the floor because he couldn't make it all the way to the restroom. he does have bruising around his eyes from a fall that he had on Friday that brought him to the ER, but he denies pain and does not think this is related to the fall.". Coronavirus screen: At this time, the client does not indicate any symptoms associated with coronavirus-19. Ebola Screen: Patient negative for fever greater than or equal to 101.5 degrees Fahrenheit, and additional compatible Ebola Virus Disease symptoms. Initial Sepsis Screen: Does the patient meet any 2 criteria? No. Patient's initial sepsis screen is negative. Does the patient have a suspected source of infection? No. Patient's initial sepsis screen is negative. Risk Assessment: Do you want to hurt yourself or someone else? Patient reports no desire to harm self or others. Onset of symptoms was April 19, 2020. 11:38 Method Of Arrival: EMS: [facility] 11:38 Acuity: JIMY 3 j 11:43 Note Jamilah(): [phone], Franklin(son): [phone]. jd3 Historical: - Allergies: 11:43 No Known Allergies; jd3 - Home Meds: 11:43 aspirin 81 mg Oral TbEC 1 tab once daily [Active]; atorvastatin 20 mg Oral tab 1 tab jd3 once daily [Active]; donepezil 10 mg Oral tab 1 tab once daily [Active]; levothyroxine 125 mcg tab 1 tab once daily [Active]; duloxetine 20 mg Oral cpDR 1 cap daily [Active]; metformin 500 mg Oral Tb24 1 tab once daily [Active]; metoprolol tartrate 50 mg Oral tab 1 tab 2 times per day [Active]; lisinopril 10 mg Oral tab 1 tab once daily [Active]; Nitrostat 0.4 mg SL subl [Active]; amiodarone 200 mg Oral tab 1 tab 2 times per day [Active]; tramadol 50 mg Oral tab 1 tab every 4-6 hours [Active]; Xarelto 10 mg Oral tab 1 tab once daily [Active]; - PMHx: 11:43 throat cancer; Dementia; Diabetes - NIDDM; Hypertension; Hypothyroidism; jd3 - PSHx: 11:43 Tonsillectomy; Hernia repair; left hip replacement; Vasectomy; Valve replacement; jd3 - Immunization history:: Adult Immunizations up to date. - Social history:: Smoking status: Patient denies any tobacco usage or history of. Screenin:20 Abuse screen: Denies threats or abuse. Nutritional screening: No deficits noted. aa5 Tuberculosis screening: No symptoms or risk factors identified. Fall Risk Fall in past 12 months (25 points). Secondary diagnosis (15 points) dementia, IV access (20 points). Total Joshua Fall Scale indicates High Risk Score (45 or more points). Fall prevention measures have been instituted. Side Rails Up X 2 Placed Close to Nursing Station. Assessment: 11:41 General: Appears comfortable, Behavior is calm, cooperative. Pain: Denies pain. Neuro: aa5 Level of Consciousness is awake, alert, obeys commands, Oriented to person, place, time, situation, [employer] are weak bilaterally Moves all extremities. Speech is normal, Facial symmetry appears normal, Reports generalized weakness. . Cardiovascular: Heart tones S1 S2 present Rhythm is regular. Respiratory: Airway is patent Respiratory effort is even, unlabored, Respiratory pattern is regular, symmetrical, Denies cough, shortness of breath. GI: Abdomen is round non-distended, Bowel sounds present X 4 quads. Abd is soft and non tender X 4 quads. Patient currently denies diarrhea, nausea, vomiting. : No signs and/or symptoms were reported regarding the genitourinary system. EENT: Bruising that is dark purple to periorbital area of lakshmi eyes. Pt reports fall on Friday. . Derm: Skin is pink, warm \\T\\ dry. Musculoskeletal: Range of motion: intact in all extremities. 12:20 Reassessment: Patient is alert, oriented x 3, equal unlabored respirations, skin aa5 warm/dry/pink. Pt back from CT scan. . 13:00 Reassessment: Pt resting in bed with eyes closed, respirations even and unlabored, skin aa5 is pink/warm/dry. Pt easy to arouse to verbal stimuli, pt states no complaints at this time. Awaiting disposition. . 13:45 Reassessment: Dr. Vera speaking to patient about need for transfer. Dr. Vera also aa5 spoke to pt's udoo-nep-iqehm about POC. . 15:00 Reassessment: Patient is alert, oriented x 3, equal unlabored respirations, skin aa5 warm/dry/pink. Pt used the urinal, voided 100cc of ofelia colored urine. Awaiting approval at [facility], pt notified of wait time. . 16:05 Reassessment: Unsuccessful attempt to call report to [facility]. [facility] aa5 call back for report. . 17:00 Reassessment: Patient is alert, oriented x 3, equal unlabored respirations, skin aa5 warm/dry/pink. Awaiting EMS for transfer, pt notified of wait time. . 17:34 Reassessment: Patient appears in no apparent distress at this time. Patient and/or jd3 family updated on plan of care and expected duration. Pain level reassessed. Patient is alert, oriented x 3, equal unlabored respirations, skin warm/dry/pink. report given to EMS. Vital Signs: 11:41 BP 143 / 96; Pulse 100; Resp 17 S; Temp 98.7(TE); Pulse Ox 96% on R/A; Weight 99.79 kg j (R); Height 5 ft. 9 in. (175.26 cm) (R); Pain 0/10; 12:30 BP 130 / 89; Pulse 95; Resp 18; Pulse Ox 96% on R/A; aa5 13:30 BP 137 / 96; Pulse 99; Resp 16 S; Pulse Ox 96% on R/A; aa5 14:30 BP 147 / 94; Pulse 105; Resp 18 S; Pulse Ox 95% on R/A; aa5 17:00 BP 135 / 90; Pulse 108; Resp 18 S; Temp 98.5(TE); Pulse Ox 96% on R/A; aa5 11:41 Body Mass Index 32.49 (99.79 kg, 175.26 cm) jd3 ED Course: 11:38 Patient arrived in ED. jd3 11:39 Sol Mcgill, RN is Primary Nurse. aa5 11:41 Triage completed. jd3 11:41 Hector Vera MD is Attending Physician. kdr 11:41 Arm band placed on. jd3 11:41 Patient has correct armband on for positive identification. Placed in gown. Bed in low aa5 position. Call light in reach. Side rails up X2. classroom monitor on. Pulse ox on. NIBP on. 11:56 Initial lab(s) drawn, by ct, sent to lab. Inserted saline lock: 20 gauge in left aa5 antecubital area, using aseptic technique. Blood collected. 12:01 CT Head Brain wo Cont In Process Unspecified. EDMS 12:23 XRAY Chest (1 view) In Process Unspecified. EDMS 13:41 pts ...[phone]. bd 14:50 initiated transfer to [facility]. bd 14:52 contacted Jaycee at [facility], she stated that she is waiting on the drs to decide what they want to do with the patient. 15:39 pt accepted in transfer to [facility] by dr payton, admin approval given by dennise Wisdom. 17:34 No provider procedures requiring assistance completed. Patient transferred, IV remains jd3 in place. Administered Medications: No medications were administered Outcome: 13:17 ER care complete, transfer ordered by . kdr 17:33 Patient left the ED. jd3 17:34 Transferred by ground EMS to [facility], Transfer form completed. jd3 X-rays sent w/ patient. 17:34 Condition: stable 17:34 Instructed on the need for transfer, Demonstrated understanding of instructions. Signatures: Dispatcher [employer] EDMS Citlaly Chiu Hector Vera MD MD kdr Sol Mcgill, RN RN [facility] Dennys Kc RN RN j
--- OUTSIDE RECORDS SUMMARY | 2020-04-19 16:20 | XMS REPORT | Continuity of Care Document ---
:1940 Author Organization [employer] Care Team Providers Name Role Phone [employer] Unavailable Un available Problems Problem Status Onset [...] # 180 [Namenda] tab, 3 Refill(s), Pharmacy: [facility] #[id number], 170.18, cm, 10/22/19 9:06:00 CDT, Height, 107.727, kg, 10/22/19 9:06:00 CDT, Weight DULoxetine 20 mg See Active [facility]ischer oral delayed Instructions 020 Neuro release capsule , TAKE 1 CAPSULE BY MOUTH EVERY DAY, # 90 unknown unit, 2 Refill(s), Pharmacy: [facility] #[id number], 170.18, cm, 10/22/19 9:06:00 CDT, Height, 107.727, kg, 10/22/19 9:06:00 CDT, Weight Memantine 5 mg = 1 Active Mischer hydrochloride 5 tab, PO, 020 Neuro MG Oral Tablet BID, # 60 [Namenda] tab, 3 Refill(s), Pharmacy: [facility] #[id number], 170.18, cm, 10/22/19 9:06:00 CDT, Height, 107.727, kg, 10/22/19 9:06:00 CDT, Weight DULoxetine 20 mg = 1 cap, PO, Active Mi roni oral delayed Daily, # 90 020 Neuro release capsule cap, 1 Refill(s), [id number] rivaroxaban 20 20 mg = 1 Active Mischer MG Oral Tablet tab, PO, 019 Neuro [Xarelto] QPM, # 30 tab, 3 Refill(s) DULoxetine 20 mg = 1 cap, PO, Active Mi roni oral delayed Daily, # 90 019 Neuro release capsule cap, 1 Refill(s), [id number] donepezil 10 mg = 1 tab, PO, Active Mis jessica oral tablet Bedtime, # 019 Neuro 30 tab, Refill(s) 5, [id number] DULoxetine 20 mg = 1 cap, PO, Active Mi roni oral delayed Daily, # 30 019 Neuro release capsule unknown unit, Refill(s) 5, Pharmacy: [facility]/pharmacy #[id number] Allergies, Adverse Reactions, Alerts Substance Category [...] Source Systolic (mm Hg) 140 01/14/2020 [facility] Jolie ro Diastolic (mm Hg) 78 01/14/2020 [facility] Ne uro Heart Rate 79 01/14/2020 [facility] Respitory Rate 16 01/14/2020 [facility] Neuro Height 167.64 cm 01/14/2020 [facility] Neuro Weight 104.545 01/14/2020 [facility] Neuro BMI Calculated 37.2 01/14/2020 [facility] Neuro Systolic (mm Hg) 164 10/22/2019 [facility] Jolie ro Diastolic (mm Hg) 94 10/22/2019 [facility] Ne uro Heart Rate 71 10/22/2019 [facility] Neuro Respitory Rate 16 10/22/2019 [facility] Neuro Height 170.18 cm 10/22/2019 [facility] Neuro Weight 107.727 10/22/2019 [facility] Neuro BMI Calculated 37.2 10/22/2019 [facility] Neuro Systolic (mm Hg) 160 10/21/2018 [facility] Jolie ro Diastolic (mm Hg) 90 10/21/2018 [facility] Ne uro Systolic (mm Hg) 190 10/21/2018 [facility] Jolie ro Diastolic (mm Hg) 114 10/21/2018 [facility] Ne uro Heart Rate 67 10/21/2018 [facility] Neuro Respitory Rate 16 10/21/2018 [facility] Neuro Height 170.18 cm 10/21/2018 [facility] Neuro Weight 101.818 10/21/2018 [facility] Neuro BMI Calculated 35.16 10/21/2018 [facility] Neuro Encounters Location Location Encounter Encounter Reason Attending ADM [place] Stat us Source Details Type Number For Provider Date Date Visit Outpatient [id number] AUDREY 04/23 Active [facility] [place] Outpatient [id number] AUDREY 08/21 Active [facility] Robin Outpatient [id number] AUDREY 10/29 [facility] Robin MNA Phone [id number] 02/04 02/[address] [facility] Virgie Outpatient [id number] AUDREY 07/29 [facility] Robin MNA Ambulatory [id number] Audrey 07/29 07/29 [facility] Neurology Pre-Reg Kre Neuro Virgie Outpatient [id number] Audrey 10/21 Active [facility] [place] MNA Outpatient [id number] Audrey 10/21 10/22 [facility] Neurology Kre /2018 Neuro Virgie Outpatient [id number] Audrey 10/21 Active [facility] [place] Outpatient [id number] Audrey 10/21 Active [facility] Robin MNA Ambulatory [id number] Audrey 10/21 10/21 [facility] Neurology Pre-Reg Kre /2019 Neuro Virgie MNA Outpatient [id number] Audrey 10/21 10/22 [facility] Neurology Krell /2019 Neuro Virgie Outpatient [id number] Audrey 01/13 Active [facility] [place] MNA Outpatient [id number] Audrey 01/13 01/14 [facility] Kre /2019 Neuro Virgie Outpatient [id number] Audrey 07/13 Active [facility] Robin Procedures Procedure Code Date Perfomer Comments Source Aortic valve [id number] [facility] Neur o replacement and plication of [...] Pablo riddle Maddison Jr-Son and Jamilah Washburn- [id number] smokin 37 yrs ago Family History No Data Provided for This Section Advance Directives No Data Provided for This Section Functional Status No Data Provided for This Section
--- OUTSIDE RECORDS SUMMARY | 2020-04-19 16:20 | XMS REPORT | Clinical Summary ---
:1940 Author Organization [facility] Address [address] [place] [address] Care Team Providers Name Role Phone Emmy [...] disease Hypertension Aortic stenosis Hyperlipidemia Atrial fibrillation Encounters Date Type Specialty Care Team Description 04/19/2020 Hospital Encounter after 04/19/2019 Family History Medical History Relation Name Comments [...] DIABETIC FOOT EXAM 1950 URINE MICROALBUMIN 1950 HEPATITIS C SCREENING 1958 DTAP/TDAP/TD VACCINES (1 - Tdap) 05/16/1959 SHINGLES VACCINES (1 of 2) 1990 PNEUMOCOCCAL 65+ YRS (1 of 1 - [id number]) 2005 HEMOGLOBIN A1C 01/09/2019 07/09/2018 MEDICARE ANNUAL WELLNESS (YEAR 2 or FIRST YEAR if no 03/11/2019 IPPE) INFLUENZA VACCINE (#1) 2019 DEPRESSION SCREENING (12+) 03/10/2020 Implants Implanted Type Area Patient Educator Device Shelf Model / Identifier Expiration Serial / Date Lot Vlv Aort Inspiris Resilia 21mm [id number] - [id number] IMPLANTS N/A: RAINEY [employer]IF[employer] 02/18/2020 [id number] / Implanted: Qty: 1 on 07/21/2018 by Shine Meehan MD at [facility] Chest [id number] / Results Not on fileafter 04/19/2019 Insurance Payer Benefit Plan / Subscriber ID Effective Dates Phone Addre ss Type Group AETNA - AETNA MEDICARE [id number] 2018-[place] [phone] MEDICARE MGD HMO POS PPO t [id number] 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
--- OUTSIDE RECORDS SUMMARY | 2020-04-19 16:20 | XMS REPORT | Clinical Summary ---
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
--- OUTSIDE RECORDS SUMMARY | 2020-04-19 16:22 | XMS REPORT | Continuity of Care Document ---
:1940 Author Organization [facility] t Address [address] [place] [address] Care Team Providers Name Role Phone Emmy Jones MD Primary Care Physician Charlie Worley Attending Clinician DAVID TALAVERA Attending Clinician Unavailable DAVID TALAVERA Admitting Clinician Unavailable Payers Payer Name Policy Type Policy Number Effective Date Expiration Date S екатерина AETNA - MEDICARE [id number] [address] [facility] MGD CAREAETNA 00:00:00 - Medical MEDICARE O POS Center [id number], [place] [address] Problems Condition Condition Condition Status Onset Resolution Last Treating Co mments Source Name Details Category Date Date Treatment Clinician Date S/P AVR S/P AVR Disease Active [facility] ([facility] (aortic 14 [facility] - valve valve 00:00: Medical replacemen replacemen 00 Ce nter t) t) S/P CABG x S/P CABG x Disease Active [facility] 1 1 5-14 [facility] - 00:[facility]: Medical 00 Center 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 (finding) 07-09 00:50:38 l 00:00: Robin 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 07/09/2016 Problem 01/17/2020 [facility] Amnesia Problem Active 2020-01-17 Ulises sasha (finding) 07-26 00:50:38 l Amnesia 00:00: Stevens (finding) 00 Active 07/27/2015 Problem 01/17/2020 [facility] Hypothyroi Problem Active 2020-01-17 M emoria dism 00:50:38 l (disorder) Tolu n Hypothyroi dism (disorder) Active Problem 01/17/2020 [facility] Primary Problem Active 2020-01-17 Ulises sasha degenerati 00:50:38 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 - type 2, type 2, Medical noninsulin noninsulin Ce nter dependent dependent Coronary Coronary Disease Active [facility] t artery artery [facility] disease [facility] Hypertensi Hypertensi Disease Active [facility] on on [facility] Aortic Aortic Disease Active [facility] stenosis stenosis [facility] Hyperlipid Hyperlipid Disease Active C [facility] emia emia [facility] Atrial Atrial Disease Active [facility] St fibrillati fibrillati Yen kes - on on [facility] Allergies, Adverse Reactions, Alerts Allergy Allergy Status Severity Reaction(s) Onset Inactive Treating Comm ents Source Name Type Date Date Clinician No Known No Known Active Memori a Medicati Medicati l on on Robin Allergie Allergie s s Family History Family Member Diagnosis Comments Start Date Stop Date Source Natural father Heart disease [facility] Natural mother Diabetes [facility] Natural mother Heart disease [facility] Social History Social Habit Start Date Stop Date Quantity Comments Source Sex Assigned At [place] [facility] History of tobacco Cigarette Smoker [facility] - use [facility] History SDOH [facility] - Alcohol Std Dr[facility] History SDOH [facility] - Alcohol Binge Medical Abiel ter Social History 2020-01-14 2020-01-14 [facility] 16:52:28 16:52:28 Cigarettes smoked 2018-07-22 2018-07-[address] [facility] - current (pack per 00:00:00 00:00:00 Medical Center day) - Reported Cigarette 2018-07-22 2018-07-[address] [facility] - pack-years 00:00:00 00:00:00 [facility] Tobacco use and 2018-07-22 2018-07-22 Former user EDITH De La Garza - exposure 00:00:00 00:00:00 [facility] Alcohol intake 2018-07-22 2018-07-22 Current EDITH Clark es - 00:00:00 00:00:00 non-drinker of Medical Ce nter alcohol (finding) History SDOH 2018-07-09 2018-07-09 1 EDITH Arreguin - Alcohol Frequency 00:00:00 00:00:00 [facility] Smoking Status Start Date Stop Date Source Former smoker 2018-07-22 00:00:00 2018-07-22 00:00:[address] [facility] [address] [facility] [place] - [facility] Medications Ordered Filled Start Stop Current Ordering Indication Dosage Frequency Signature Comments Components Source Medication Medication Date Date Medication? Clinician (SIG) Name Name Memantine 2020-1 Yes 10 mg = 1 Mem oria hydrochlori 1-06 tab, PO, l de 10 MG 16:49: BID, # 180 Her valente Oral Tablet 00 tab, 3 [Namenda] Refill(s), Pharmacy: [facility] #[id number], 170.18, cm, 10/22/19 9:06:00 CDT, Height, 107.727, kg, 10/22/19 9:06:00 CDT, Weight DULoxetine 2019-0 Yes See Memoria 20 mg oral 9-14 Instructio l delayed 15:17: ns, TAKE 1 Herm gilbert release 00 CAPSULE BY capsule MOUTH EVERY DAY, # 90 unknown unit, 2 Refill(s), [id number], 170.18, cm, 10/22/19 9:06:00 CDT, Height, 107.727, kg, 10/22/19 9:06:00 CDT, Weight Memantine 2020-0 Yes 5 mg = 1 Ulises sasha hydrochlori 8-14 tab, PO, l de 5 MG 14:20: BID, # 60 Tracy nn Oral Tablet 00 tab, 3 [Namenda] Refill(s), [id number], 170.18, cm, 10/22/19 9:06:00 CDT, Height, 107.727, kg, 10/22/19 9:06:00 CDT, Weight DULoxetine 2019-0 Yes = 1 cap, Mem oria 20 mg oral 3-16 PO, Daily, l delayed 16:01: # 90 cap, Tracy nn release 00 1 capsule Refill(s), Pharmacy: [facility] #[id number] rivaroxaban Yes 20 mg = 1 M emoria 20 MG Oral 8-14 tab, PO, l Tablet 14:43: QPM, # 30 Tolu n [Xarelto] 00 tab, 3 Refill(s) DULoxetine Yes = 1 cap, Mem oria 20 mg oral 7-24 PO, Daily, l delayed 22:16: # 90 cap, Tracy nn release 51 1 capsule Refill(s), Pharmacy: [facility] #[id number] metFORMIN Yes 500mg Take 500 [facility] [...] 10 MG 12:01: daily. Medical tablet 46 Morris DULoxetine Yes 20mg QD Take [address] (CYMBALTA) 5-22 by mouth [facility] - 20 MG 12:01: daily. Medical capsule 46 Morris rivaroxaban Yes Take by [facility] (XARELTO) 5-22 mouth [facility] - 20 mg Tab 12:01: daily with Me dical tablet 46 dinner. Morris aluminum-ma Yes 30mL Take [address] gnesium 5-22 mLs by [facility] - hydroxide-s 12:01: mouth as Me dical imethicone 46 needed. Morris (MAALOX PLUS) suspension 200-200-20 mg/5 mL amiodarone [...] 2 Center (two) times daily. aspirin 81 2019- No 81mg QD Take [address] MG EC 5-21 05-20 tablet (81 [facility] - tablet 00:00: 23:59 mg total) Medic al 00 :00 by mouth Center daily. atorvastati 2019- No 40mg QD Take [address] [...] nn 07 30 tab, Refill(s) 5, Pharmacy: [facility] #[id number] DULoxetine Yes = 1 cap, Mem oria 20 mg oral 3-24 PO, Daily, l delayed 21:08: # 30 Robin release 47 unknown capsule unit, Refill(s) 5, Pharmacy: [facility] #[id number] Vital Signs Vital Name Observation Time Observation Value Comments Source Systolic (mm Hg) 2020-01-14 16:41:00 Ulises rial Robin Diastolic (mm Hg) 2020-01-14 16:41:00 [facility] orial [place] Heart Rate 2020-01-14 [facility] 2020-01-14 16:41:00 [facility] Height 2020-01-14 16:41:00 167.64 cm [facility] Weight 2020-01-14 16:41:00 [facility] BMI Calculated 2020-01-14 16:41:00 [facility] Systolic (mm Hg) 2019-10-22 14:06:00 Ulises rial Robin Diastolic (mm Hg) 2019-10-22 14:06:00 [facility] orial [place] Heart Rate 2019-10-22 14:06:00 [facility] Respitory Rate 2019-10-22 14:06:00 Memori al [place] Height 2019-10-22 14:06:00 170.18 cm [facility] Weight 2019-10-22 14:06:00 [facility] [place] BMI Calculated 2019-10-22 14:06:00 Memori al [place] Systolic (mm Hg) 2018-10-21 14:43:00 Ulises rial [place] Diastolic (mm Hg) 2018-10-21 14:43:00 Mem orial Robin Systolic (mm Hg) 2018-10-21 14:18:00 Ulises rial Robin Diastolic (mm Hg) 2018-10-21 14:18:00 Mem orial [place] Heart Rate 2018-10-21 14:18:00 [facility] Robin Respitory Rate 2018-10-21 14:18:00 Memori al Robin Height 2018-10-21 14:18:00 170.18 cm [facility] Weight 2018-10-21 14:18:00 [facility] [place] BMI Calculated 2018-10-21 14:18:00 Memori al Robin Procedures Procedure Date / Time Performed Performing Clinician [facility] Aortic valve replacement Memoria l Robin and plication of ascending aorta Plan of Care Planned Activity Planned Date Details Comments Source Future Scheduled 2020-03-[address] [facility] - Test 00:00:00 (12+) [code = Medical Center DEPRESSION SCREENING (12+)] Future Scheduled 2019-11-09 INFLUENZA VACCINE (#1) [facility] Test 00:00:00 [code = INFLUENZA Medical Ce nter VACCINE (#1)] Future Scheduled 2019-10-09 INFLUENZA VACCINE [place] [facility] Test 00:00:00 [code = INFLUENZA VACCINE] Future Scheduled 2019-03-[address] [facility] [facility] - Test 00:00:00 WELLNESS (YEAR 2 or Medical Center FIRST YEAR if no IPPE) [code = MEDICARE ANNUAL WELLNESS (YEAR 2 or FIRST YEAR if no IPPE)] Future Scheduled 2019-01-[address] [facility] - Test 00:00:00 [facility] (procedure) [code = 77710484] Future Scheduled 2005 65+ PNEUMOCOCCAL [place] [facility] Test 00:00:00 VACCINE (1 of 1 - PPSV23) [code = 65+ PNEUMOCOCCAL VACCINE (1 of 1 - PPSV23)] Future Scheduled 2005 PNEUMOCOCCAL 65+ YRS [facility] - Test 00:00:00 (1 of 1 - Medical Center [id number] PCV13) [code = PNEUMOCOCCAL 65+ YRS (1 of 1 - [id number] PCV13)] Future Scheduled 1990 SHINGLES VACCINES (#1) [place] [facility] Test 00:00:00 [code = SHINGLES VACCINES (#1)] Future Scheduled 1990 SHINGLES VACCINES ([address] [facility] - Test 00:00:00 of 2) [code = SHINGLES Medic al Center VACCINES (1 of 2)] Future Scheduled 1959-05-16 DTAP/TDAP/TD VACCINES [facility] - Test 00:00:00 (1 - Tdap) [code = Medical C enter DTAP/TDAP/TD VACCINES (1 - Tdap)] Future Scheduled 1958 HEPATITIS C SCREENING [facility] - Test 00:00:00 [code = HEPATITIS C Medical Center SCREENING] Future Scheduled 1956 COVID-19 VACCINE (1 of [place] [facility] Test 00:00:00 2) [code = COVID-19 VACCINE (1 of 2)] Future Scheduled 1950 DIABETIC EYE EXAM [facility] - Test 00:00:00 [code = DIABETIC EYE Medical Center EXAM] Future Scheduled [address] [facility] - Test 00:00:00 examination Medical Center (regime/therapy) [code = 609657679] Future Scheduled 1950 Urine screening for [facility] - Test 00:00:00 protein (procedure) Medical Center [code = 395717210] Encounters Start End Encounter Admission Attending Care Care Encounter Source Date/Time Date/Time Type Type Clinicians Facility Department ID 2020-01-14 2020-01-14 Outpatient ALLISON Worley [id number] 10:30:00 23:59:59 Jaycob 07 Charlie 2019-10-22 2019-10-22 Outpatient ALLISON Worley [id number] 09:00:00 23:59:59 Jaycob 06 Charlie 2019-10-22 2019-10-22 Outpatient ALLISON Worley [id number] 09:00:00 09:00:00 Jaycob 05 Charlie 2018-10-21 2018-10-21 Outpatient ALLISON Worley [id number] 09:00:00 23:59:59 Jaycob 04 Charlie 2018-07-29 2018-07-29 Outpatient ALLISON Worley [id number] 09:15:00 09:15:00 Jaycob 03 Charlie 2018-02-04 2018-02-05 Outpatient ALLISON COOPER [id number] 11:54:00 23:59:59 01 Results Test Description Test Time Test Comments Results Result Comments Source POCT-GLUCOSE METER 2018-07-29 16:36:00 Test Item Value Reference Range Interpretation Comme nts POC-GLUCOSE METER (BEAKER) (test 108 mg/dL 70-110 TESTED AT [facility] [address] [facility]38[facility] 7703 0 BASIC METABOLIC [id number] 08:25:00 Test Item Value Reference Range Interpretation [...] PATIEN TS. CBC W/PLT COUNT & AUTO [id number] 05:31:00 Test Item Value Reference Range Interpretation [...] PERCENT (BEAKER) (test code = 2801) POCT-GLUCOSE [id number] 23:32:00 Test Item Value Reference Range Interpretation Comments POC-GLUCOSE METER 95 mg/dL 70-110 TESTED AT [facility] 67 (BEAKER) (test code = [place] [address] 1538) POCT-GLUCOSE [id number] 17:21:00 Test Item Value Reference Range Interpretation Comments POC-GLUCOSE METER 104 mg/dL 70-110 TESTED AT [place] [address] (BEAKER) (test code = TABATHA Lozano [place] 1538) [address] [id number] 10:35:00 Test Item Value Reference Range Interpretation Comments MAGNESIUM (BEAKER) (test code = 1.9 mg/dL 1.6-2.6 627) POCT-GLUCOSE [id number] 09:09:00 Test Item Value Reference Range Interpretation Comments POC-GLUCOSE METER 122 mg/dL 70-110 H TESTED AT [place] [address] (BEAKER) (test code = TABATHA Lozano [place] 1538) [address] BASIC METABOLIC [id number] 02:49:00 Test Item Value Reference Range Interpretation [...] APPLICABLE FOR DIALYSIS PATIEN TS. LACTIC ACID, [id number] 02:46:00 Test Item Value Reference Range Interpretation Comments LACTATE BLOOD VENOUS (2) (BEAKER) 2.0 mmol/L 0.5-2.2 (test code = 2872) LACTIC ACID, [id number] 22:31:00 Test Item Value Reference Range Interpretation Comments LACTATE BLOOD VENOUS (2) (BEAKER) 2.1 mmol/L 0.5-2.2 (test code = 2872) POCT-GLUCOSE [id number] 21:55:00 Test Item Value Reference Range Interpretation Comments POC-GLUCOSE METER 168 mg/dL 70-110 H TESTED AT [facility] 6720 (BEAKER) (test code = TAB[place] 1538) [address] [id number] 20:15:00 Test Item Value Reference Range Interpretation Comments MAGNESIUM (BEAKER) (test code = 1.9 mg/dL 1.6-2.6 627) BASIC METABOLIC [id number] 20:15:00 Test Item Value Reference Range Interpretation [...] PATIEN TS. CBC W/PLT COUNT & AUTO [id number] 20:14:00 Test Item Value Reference Range Interpretation [...] (BEAKER) (test code = 2801) POCT-LACTIC ACID, [id number] 19:45:00 Test Item Value Reference Range Interpretation Comments POC-LACTIC ACID, 2.4 mmol/L 0.9-1.7 H TESTED AT [facility] 6720 VENOUS (BEAKER) (test TAB[place] code = 2805) [address] POCT-GLUCOSE [id number] 19:25:00 Test Item Value Reference Range Interpretation Comments POC-GLUCOSE METER 204 mg/dL 70-110 H TESTED AT [facility] 67[address] [facility] (test code = [place] 1538) [address] POCT-GLUCOSE [id number] 17:24:00 Test Item Value Reference Range Interpretation Comments POC-GLUCOSE METER 149 mg/dL 70-110 H TESTED AT [place] [address] ([facility]) (test code = TAB[place] 1538) [address] RAD, CHEST, 1 VIEW, NON [id number] 12:01:00Reason for exam:- >dyspneaShould this be performed at the bedside?->YesFINAL REPORT CLINICAL HISTORY: dyspnea TECHNIQUE: 1 view of the chest. COMPAR ZEUS: 07/25/2018 IMPRESSION: Left lung base pleural-parenchymal opacity is unchanged. The right lung remains relatively well-aerated. The cardiomediastinal silhouette is magnified by technique with sternotomy wires. Signed: Alan Chi MDReport Verified Date/Time: 07/27/2018 12:01:19 Reading Location: [facility] Radiology Reading Room TISSUE [id number] 11:59:00Surgical Pathology Report Case: [id number] Authorizing Provider: Shine Talavera, Collected: 07/21/2018 1022 OrderingLocation: [facility] Received: 07/21/2018 1159 PERIOPERATIVE SERVICES Pathologist: Davion Mallory MD Specimen: Aortic Valve HEART, AORTIC VALVE,VALVULECTOMY:LEAFLETS WITH SEVERE NODULAR CALCIFIC ATHEROSCLEROTIC THICKENING Signing Pathologist Direct Phone Line: [phone] signed by Davion Mallory MD on 07/27/2018 at 11:59 A [id number]; 09444Cjhvcanczxsuje disease disease, aortic valve stenosis, etiology of [...] representatively in a single cassette following decalcification. [id number] 11:30:00 Test Item Value Reference Range Interpretation Comments MAGNESIUM (BEAKER) (test code = 1.7 mg/dL 1.6-2.6 627) POCT-GLUCOSE [id number] 09:47:00 Test Item Value Reference Range Interpretation Comments POC-GLUCOSE METER 114 mg/dL 70-110 H TESTED AT [place] [address] ([facility]) (test code = [facility] 1538) [address] BASIC METABOLIC [id number] 05:37:00 Test Item Value Reference Range Interpretation [...] NOT APPLICABLE FOR DIALYSIS PATIEN TS. POCT-GLUCOSE [id number] 21:01:00 Test Item Value Reference Range Interpretation Comments POC-GLUCOSE METER 136 mg/dL 70-110 H TESTED AT [facility] 6720 ([facility]) (test code = [facility] 1538) [address] POCT-GLUCOSE [id number] 15:47:00 Test Item Value Reference Range Interpretation Comments POC-GLUCOSE METER 121 mg/dL 70-110 H TESTED AT [facility] 67[address] ([facility]) (test code = [facility] 1538) [address] POCT-GLUCOSE [id number] 09:34:00 Test Item Value Reference Range Interpretation Comments POC-GLUCOSE METER 95 mg/dL 70-110 TESTED AT [facility] 67[address] ([facility]) (test code = [facility] [address] 1538) BASIC METABOLIC [id number] 07:28:00 Test Item Value Reference Range Interpretation Comments SODIUM (BEAKER) 136 meq/L 136-145 (test code = 381) POTASSIUM (BEAKER) 3.6 meq/L 3.5-5.1 (test code = 379) CHLORIDE (BEAKER) 101 meq/L 98-107 (test code = 382) CO2 (BEAKER) (test 26 meq/L 22-29 code = 355) BLOOD UREA NITROGEN 15 mg/dL 7-21 (BEAKER) (test code = 354) CREATININE (BEAKER) 0.69 mg/dL 0.57-1.25 (test code = 358) GLUCOSE RANDOM 107 mg/dL 70-105 H (BEAKER) (test code = 652) CALCIUM (BEAKER) 7.9 mg/dL 8.4-10.2 L (test code = 697) EGFR (BEAKER) (test 111 mL/min/1.73 ESTIM ATED GFR IS code = 1092) sq m NOT ACCURATE CREATININE CLEARANCE IN PREDICTING GLOMERULAR FILTRATION RATE . ESTIMATED GFR I S NOT APPLICABLE FOR DIALYSIS PATIEN TS. POCT-GLUCOSE [id number] 22:08:00 Test Item Value Reference Range Interpretation Comments POC-GLUCOSE METER 149 mg/dL 70-110 H TESTED AT [facility] 6720 (BEAKER) (test code = [facility] 1538) [address] POCT-GLUCOSE [id number] 15:46:00 Test Item Value Reference Range Interpretation Comments POC-GLUCOSE METER 95 mg/dL 70-110 TESTED AT [facility] 67[address] ([facility]) (test code = [facility] [address] 1538) B-TYPE NATRIURETIC FACTOR (BNP)2018-07-25 11:55:00 Test Item Value Reference Range Interpretation Comments B-TYPE NATRIURETIC PEPTIDE (BEAKER) 301 pg/mL 0-100 H (test code = 700) RAD, CHEST, 1 VIEW, NON [id number] 11:29:00Reason for exam:->shortness of breathShould this be performed at the bedside?->YesFINAL REPORT Comparison: 07/24/2018 TECHNIQUE: Single view of the chest FINDINGS: Small left pleural effusion with adjacent airspace disease. Mild vascular congestion suspected elsewhere. Cardiac silhouette is enlarged. Postsurgical changes in the mediastinum noted. Signed: Aung Timmons MDReport Verified Date/Time: 07/25/2018 11:29:19 Reading Location: [address] [id number] 09:47:00 Test Item Value Reference Range Interpretation Comments MAGNESIUM (BEAKER) (test code = 1.9 mg/dL 1.6-2.6 627) BASIC METABOLIC [id number] 09:47:00 Test Item Value Reference Range Interpretation [...] NOT APPLICABLE FOR DIALYSIS PATIEN TS. POCT-GLUCOSE [id number] 08:41:00 Test Item Value Reference Range Interpretation Comments POC-GLUCOSE METER 115 mg/dL 70-110 H TESTED AT [facility] 6720 (BEAKER) (test code = TAB[place] 1538) [address] CBC W/PLT COUNT & AUTO [id number] 06:04:00 Test Item Value Reference Range Interpretation [...] EOSINOPHILS ABSOLUTE COUNT 0.30 K/ L 0.04-0.54 ([facility]) (test code = 416) BASOPHILS ABSOLUTE COUNT ([facility]) 0.06 K/ L 0.01-0.08 (test code = 417) IMMATURE GRANULOCYTES-RELATIVE 1 % 0-1 PERCENT ([facility]) (test code = 2801) POCT-GLUCOSE [id number] 21:45:00 Test Item Value Reference Range Interpretation Comments POC-GLUCOSE METER 120 mg/dL 70-110 H TESTED AT [place] [address] ([facility]) (test code = [facility] 1538) [address] POCT-GLUCOSE [id number] 18:01:00 Test Item Value Reference Range Interpretation Comments POC-GLUCOSE METER 150 mg/dL 70-110 H TESTED AT [place] [address] ([facility]) (test code = [facility] 1538) [address] POCT-GLUCOSE [id number] 13:03:00 Test Item Value Reference Range Interpretation Comments POC-GLUCOSE METER 152 mg/dL 70-110 H TESTED AT [place] [address] ([facility]) (test code = [facility] 1538) [address] RAD, CHEST, 1 VIEW, NON [id number] 09:45:00Reason for exam:->pleural effShould this be performed at the bedside?->YesFINAL REPORT TECHNIQUE: Frontal chest radiograph dated 07/24/2018. CLINICAL HISTORY: Pleural effusion COMPARISON STUDY: Chest radiograph dated 07/22/2018 IMPRESSION:The extreme lateral left lung base is not included in the eurga-jn-yvtp. A small left pleural effusion is suspected. Stable left lung base atelectasis. No pneumothorax. Cardiomediastinal silhouette is normal in size.No pulmonary edema. Midline sternotomy wires are intact and well aligned. Signed: Neel Ham Verified Date/Time: 07/24/2018 09:45:08 Reading Location: [facility] Radiology Reading Room POCT-GLUCOSE [id number] 08:16:00 Test Item Value Reference Range Interpretation Comments POC-GLUCOSE METER 149 mg/dL 70-110 H TESTED AT [facility] 6720 (BEAKER) (test code = TAB[place] 1538) [address] [id number] 07:48:00 Test Item Value Reference Range Interpretation Comments PHOSPHORUS (BEAKER) (test code = 1.5 mg/dL 2.3-4.7 LL 604) [id number] 07:43:00 Test Item Value Reference Range Interpretation Comments MAGNESIUM (BEAKER) (test code = 1.8 mg/dL 1.6-2.6 627) BASIC METABOLIC [id number] 07:43:00 Test Item Value Reference Range Interpretation [...] PATIEN TS. CBC W/PLT COUNT & AUTO [id number] 06:04:00 Test Item Value Reference Range Interpretation [...] PERCENT (BEAKER) (test code = 2801) POCT-GLUCOSE [id number] 21:28:00 Test Item Value Reference Range Interpretation Comments POC-GLUCOSE METER 130 mg/dL 70-110 H TESTED AT [facility] 6720 (BEAKER) (test code = TABATHA [place] 1538) [address] URINALYSIS W/ REFLEX URINE [id number] 18:20:00 Test Item Value Reference Range Interpretation [...] = 1574) Moderate SOURCE(BEAKER) (test code = 2795) POCT-GLUCOSE [id number] 14:57:00 Test Item Value Reference Range Interpretation Comments POC-GLUCOSE METER 135 mg/dL 70-110 H TESTED AT [facility] 6720 (BEAKER) (test code = TABATHA [place] 1538) [address] B-TYPE NATRIURETIC FACTOR (BNP)2018-07-23 06:49:00 Test Item Value Reference Range Interpretation Comments B-TYPE NATRIURETIC PEPTIDE (BEAKER) 446 pg/mL 0-100 H (test code = 700) [id number] 06:09:00 Test Item Value Reference Range Interpretation Comments PHOSPHORUS (BEAKER) (test code = 2.4 mg/dL 2.3-4.7 604) [id number] 06:09:00 Test Item Value Reference Range Interpretation Comments MAGNESIUM (BEAKER) (test code = 2.0 mg/dL 1.6-2.6 627) BASIC METABOLIC [id number] 06:09:00 Test Item Value Reference Range Interpretation [...] NOT APPLICABLE FOR DIALYSIS PATIEN TS. CALCIUM, [id number] 05:57:00 Test Item Value Reference Range Interpretation Comments CALCIUM IONIZED (BEAKER) (test 1.03 mmol/L 1.12-1.27 L code = 698) PH, BLOOD (BEAKER) (test code = 7.44 1810) Check serum Ionized Calcium level after 4 hours after IV Calcium replacement.CBC W/PLT COUNT & AUTO [id number] 05:46:00 Test Item Value Reference Range Interpretation [...] = 2801) RAD, CHEST, 1 VIEW, NON [id number] 00:00:00Reason for exam:->sobShould this be performed at [...] MDReport Verified Date/Time: 07/23/2018 00:00:17 Reading Location: [address] Consult Reading Room Electronically signed by: MIKE WOODS M.D. 07/23/2018 12:00 AMPOCT-GLUCOSE METER 2018-07-22 21:49:00 Test Item Value Reference Range Interpretation Comments POC-GLUCOSE METER 133 mg/dL 70-110 H TESTED AT [place] [address] ([facility]) (test code = [place] 1538) [address] POCT-GLUCOSE [id number] 16:55:00 Test Item Value Reference Range Interpretation Comments POC-GLUCOSE METER 156 mg/dL 70-110 H TESTED AT [place] [address] ([facility]) (test code = TABATHA Lozano [place] 1538) [address] POCT-GLUCOSE [id number] 11:33:00 Test Item Value Reference Range Interpretation Comments POC-GLUCOSE METER 164 mg/dL 70-110 H TESTED AT [place] [address] ([facility]) (test code = TABATHA Lozano [place] 1538) [address] [id number] 11:29:00 Test Item Value Reference Range Interpretation Comments PARTIAL THROMBOPLASTIN TIME 47.4 seconds 22.5-36.0 H (BEAKER) (test code = 760) PLATELET [id number] 11:14:00 Test Item Value Reference Range Interpretation Comments PLATELET COUNT (BEAKER) (test 105 K/CU MM 150-450 L code = 756) BASIC METABOLIC [id number] 05:57:00 Test Item Value Reference Range Interpretation [...] S NOT APPLICABLE FOR DIALYSIS PATIEN TS. [id number] 05:56:00 Test Item Value Reference Range Interpretation Comments PHOSPHORUS (BEAKER) (test code = 3.3 mg/dL 2.3-4.7 604) [id number] 05:56:00 Test Item Value Reference Range Interpretation Comments MAGNESIUM (BEAKER) (test code = 2.0 mg/dL 1.6-2.6 627) CBC W/PLT COUNT & AUTO [id number] 05:34:00 Test Item Value Reference Range Interpretation [...] (BEAKER) (test code = 2801) OXYGEN SATURATION, [id number] 05:24:00 Test Item Value Reference Range Interpretation Comments O2 SATURATION (MEASURED) (BEAKER) 62.1 % (test code = 1455) BLOOD GAS, [id number] 05:20:00 Test Item Value Reference Range Interpretation [...] 40.0 % RAD, CHEST, 1 VIEW, NON [id number] 04:49:00Reason for exam:->s/p cardiac surgeryShould this be performed at the bedside?->YesFINAL REPORT CLINICAL INDICATION: Postop Comparison: 07/21/2018 The cardiomedi astinal contours are stable. The lung volumes are stable after extubation. Central pulmonary vascular prominence and bilateral parenchymal and left pleural opacities are similar to previous. There is no pneumothorax. Remaining support lines are stable. Signed: Roman Ortiz MDReport Verified Date/Time: 07/22/2018 04:49:49 Reading Location: [address] Reading Room POCT- GLUCOSE [id number] 03:10:00 Test Item Value Reference Range Interpretation Comments POC-GLUCOSE METER 131 mg/dL 70-110 H TESTED AT [facility] 6720 (BEAKER) (test code = TABATHA [place] 1538) [address] LACTIC ACID, [id number] 22:27:00 Test Item Value Reference Range Interpretation Comments LACTATE BLOOD ARTERIAL (2) 2.0 mmol/L 0.5-2.2 (BEAKER) (test code = 2874) [id number] 22:25:00 Test Item Value Reference Range Interpretation Comments MAGNESIUM (BEAKER) (test code = 2.2 mg/dL 1.6-2.6 627) SODIUM NA-STAT [id number] 22:07:00 Test Item Value Reference Range Interpretation Comments SODIUM (BEAKER) (test code = 381) 138 meq/L 135-148 POTASSIUM-STAT [id number] 22:07:00 Test Item Value Reference Range Interpretation Comments POTASSIUM (BEAKER) (test code = 4.1 meq/L 3.6-5.5 379) OXYGEN SATURATION, [id number] 22:07:00 Test Item Value Reference Range Interpretation Comments O2 SATURATION (MEASURED) (BEAKER) 59.7 % (test code = 1455) BLOOD GAS, [id number] 22:07:00 Test Item Value Reference Range Interpretation [...] (test code = 1819) 40.0 % GLUCOSE-STAT [id number] 22:07:00 Test Item Value Reference Range Interpretation Comments GLUCOSE RANDOM (BEAKER) (test code 113 mg/dL 70-110 H = 652) HGB/HCT (H&H) - STAT [id number] 22:07:00 Test Item Value Reference Range Interpretation Comments HEMOGLOBIN (BEAKER) (test code = 10.9 g/dL 13.0-16.8 L 410) HEMATOCRIT (BEAKER) (test code = 32.0 % 40.0-50.0 L 411) LACTIC ACID, [id number] 20:27:00 Test Item Value Reference Range Interpretation Comments LACTATE BLOOD ARTERIAL (2) 2.1 mmol/L 0.5-2.2 (BEAKER) (test code = 2874) [id number] 20:26:00 Test Item Value Reference Range Interpretation Comments POTASSIUM (BEAKER) (test code = 4.3 meq/L 3.5-5.1 379) [id number] 20:26:00 Test Item Value Reference Range Interpretation Comments GLUCOSE RANDOM (BEAKER) (test code 148 mg/dL 70-105 H = 652) BLOOD GAS, [id number] 20:14:00 Test Item Value Reference Range Interpretation [...] (test code = 1819) 60.0 % POCT-GLUCOSE [id number] 18:45:00 Test Item Value Reference Range Interpretation Comments POC-GLUCOSE METER 136 mg/dL 70-110 H TESTED AT [facility] 6720 (BEAKER) (test code = TABATHA [place] 1538) [address] BLOOD GAS, [id number] 17:22:00 Test Item Value Reference Range Interpretation [...] (test code = 1819) 60.0 % POCT-GLUCOSE [id number] 16:40:00 Test Item Value Reference Range Interpretation Comments POC-GLUCOSE METER 159 mg/dL 70-110 H TESTED AT [place] [id number] (BEAKER) (test code = TABATHA Lozano [facility] 1538) [address] [id number] 13:26:00 Test Item Value Reference Range Interpretation Comments MAGNESIUM (BEAKER) 2.4 mg/dL 1.6-2.6 Specimen slightly (test code = 627) hemolyzed [id number] 13:26:00 Test Item Value Reference Range Interpretation Comments PHOSPHORUS (BEAKER) 2.4 mg/dL 2.3-4.7 Specimen slightly (test code = 604) hemolyzed BASIC METABOLIC [id number] 13:26:00 Test Item Value Reference Range Interpretation [...] APPLICABLE FOR DIALYSIS PATIEN TS. LACTIC ACID, [id number] 13:24:00 Test Item Value Reference Range Interpretation Comments LACTATE BLOOD 2.7 mmol/L 0.5-2.2 H Specimen sligh tly ARTERIAL (2) (BEAKER) hemoly zed (test code = 2874) [id number] 13:19:00 Test Item Value Reference Range Interpretation Comments PARTIAL THROMBOPLASTIN TIME 38.9 seconds 22.5-36.0 H (BEAKER) (test code = 760) PROTHROMBIN [id number] 13:18:00 Test Item Value Reference Range Interpretation [...] = 2801) RAD, CHEST, 1 VIEW, NON [id number] 13:14:00Reason for exam:->s/p cardiac surgeryShould this be [...] [place] Verified Date/Time: 07/21/2018 13:14:32 Reading Location: [facility] Radiology Readi Room BLOOD GAS, [id number] 13:10:00 Test Item Value Reference Range Interpretation [...] code = 1819) 60.0 % SODIUM NA-STAT [id number] 13:10:00 Test Item Value Reference Range Interpretation Comments SODIUM (BEAKER) (test code = 381) 134 meq/L 135-148 L GLUCOSE-STAT [id number] 13:10:00 Test Item Value Reference Range Interpretation Comments GLUCOSE RANDOM (BEAKER) (test code 165 mg/dL 70-110 H = 652) HGB/HCT (H&H) - STAT [id number] 13:10:00 Test Item Value Reference Range Interpretation Comments HEMOGLOBIN (BEAKER) (test code = 12.3 g/dL 13.0-16.8 L 410) HEMATOCRIT (BEAKER) (test code = 36.0 % 40.0-50.0 L 411) OXYGEN SATURATION, [id number] 13:09:00 Test Item Value Reference Range Interpretation Comments O2 SATURATION (MEASURED) (BEAKER) 70.2 % (test code = 1455) POTASSIUM-STAT [id number] 13:08:00 Test Item Value Reference Range Interpretation Comments POTASSIUM (BEAKER) (test code = 4.3 meq/L 3.6-5.5 379) [id number] 11:23:00 Test Item Value Reference Range Interpretation Comments ACTIVATED CLOTTING TIME 114 sec TEST ED AT [place] [address] ([facility]) (test code = TABATHA Lozano [facility] 441) [address] [id number] 11:23:00 Test Item Value Reference Range Interpretation Comments ACTIVATED CLOTTING TIME 719 sec TEST ED AT [place] [address] ([facility]) (test code = TABATHA Lozano [place] [address]) [address] [id number] 11:23:00 Test Item Value Reference Range Interpretation Comments ACTIVATED CLOTTING TIME 516 sec TEST ED AT [place] [address] ([facility]) (test code = TABATHA Lozano [place] [address]) [address] [id number] 11:23:00 Test Item Value Reference Range Interpretation Comments ACTIVATED CLOTTING TIME 598 sec TEST ED AT [place] [address] ([facility]) (test code = TABATHA Lozano [place] [address]) [address] BLOOD GAS, [id number] 11:21:00 Test Item Value Reference Range Interpretation [...] (test code = 1819) 100.0 % GLUCOSE-STAT [id number] 11:21:00 Test Item Value Reference Range Interpretation Comments GLUCOSE RANDOM (BEAKER) (test code 195 mg/dL 70-110 H = 652) HGB/HCT (H&H) - STAT [id number] 11:21:00 Test Item Value Reference Range Interpretation Comments HEMOGLOBIN (BEAKER) (test code = 11.3 g/dL 13.0-16.8 L 410) HEMATOCRIT (BEAKER) (test code = 33.0 % 40.0-50.0 L 411) CALCIUM, [id number] 11:20:00 Test Item Value Reference Range Interpretation Comments CALCIUM IONIZED (BEAKER) (test 1.19 mmol/L 1.12-1.27 code = 698) PH, BLOOD (BEAKER) (test code = 7.31 1810) SODIUM NA-STAT [id number] 11:18:00 Test Item Value Reference Range Interpretation Comments SODIUM (BEAKER) (test code = 381) 135 meq/L 135-148 POTASSIUM-STAT [id number] 11:18:00 Test Item Value Reference Range Interpretation Comments POTASSIUM (BEAKER) (test code = 4.4 meq/L 3.6-5.5 379) [id number] 11:14:00 Test Item Value Reference Range Interpretation Comments FIBRINOGEN LEVEL (BEAKER) (test 230 mg/dl 225-434 code = 658) [id number] 11:14:00 Test Item Value Reference Range Interpretation Comments PARTIAL THROMBOPLASTIN TIME 41.3 seconds 22.5-36.0 H (BEAKER) (test code = 760) PROTHROMBIN [id number] 11:13:00 Test Item Value Reference Range Interpretation Comments PROTIME (BEAKER) (test code = 19.8 seconds 11.7-14.7 H 759) INR (BEAKER) (test code = 370) 1.8 <=5.9 RECOMMENDED COUMADIN/WARFARIN INR THERAPY RANGESSTANDARD DOSE: 2.0 - 3.0 Includes: PROPHYLAXIS forvenous thrombosis, systemic embolization; TREATMENT for venous thrombosis and/or pulmonary embolus.HIGH RISK: Target INR is 2.5-3.5 for patients with mechanical heart valves.PLATELET [id number] 10:56:00 Test Item Value Reference Range Interpretation Comments PLATELET COUNT (BEAKER) (test code 84 K/CU MM 150-450 L = 756) BLOOD GAS, [id number] 10:44:00 Test Item Value Reference Range Interpretation [...] code = 1819) 100.0 % SODIUM NA-STAT [id number] 10:44:00 Test Item Value Reference Range Interpretation Comments SODIUM (BEAKER) (test code = 381) 134 meq/L 135-148 L GLUCOSE-STAT [id number] 10:44:00 Test Item Value Reference Range Interpretation Comments GLUCOSE RANDOM (BEAKER) (test code 232 mg/dL 70-110 H = 652) HGB/HCT (H&H) - STAT [id number] 10:44:00 Test Item Value Reference Range Interpretation Comments HEMOGLOBIN (BEAKER) (test code = 8.9 g/dL 13.0-16.8 L 410) HEMATOCRIT (BEAKER) (test code = 26.0 % 40.0-50.0 L 411) CALCIUM, [id number] 10:44:00 Test Item Value Reference Range Interpretation Comments CALCIUM IONIZED (BEAKER) (test 1.05 mmol/L 1.12-1.27 L code = 698) PH, BLOOD (BEAKER) (test code = 7.32 1810) POTASSIUM-STAT [id number] 10:43:00 Test Item Value Reference Range Interpretation Comments POTASSIUM (BEAKER) (test code = 5.3 meq/L 3.6-5.5 379) POTASSIUM-STAT [id number] 10:16:00 Test Item Value Reference Range Interpretation Comments POTASSIUM (BEAKER) (test code = 6.8 meq/L 3.6-5.5 HH 379) HGB/HCT (H&H) - STAT [id number] 10:12:00 Test Item Value Reference Range Interpretation Comments HEMOGLOBIN (BEAKER) (test code = 8.1 g/dL 13.0-16.8 L 410) HEMATOCRIT (BEAKER) (test code = 24.0 % 40.0-50.0 L 411) BLOOD GAS, [id number] 10:11:00 Test Item Value Reference Range Interpretation [...] (test code = 1819) 70.0 % GLUCOSE-STAT [id number] 10:11:00 Test Item Value Reference Range Interpretation Comments GLUCOSE RANDOM (BEAKER) (test code 236 mg/dL 70-110 H = 652) SODIUM NA-STAT [id number] 10:11:00 Test Item Value Reference Range Interpretation Comments SODIUM (BEAKER) (test code = 381) 131 meq/L 135-148 L BLOOD GAS, [id number] 09:44:00 Test Item Value Reference Range Interpretation [...] code = 1819) 70.0 % SODIUM NA-STAT [id number] 09:44:00 Test Item Value Reference Range Interpretation Comments SODIUM (BEAKER) (test code = 381) 133 meq/L 135-148 L POTASSIUM-STAT [id number] 09:44:00 Test Item Value Reference Range Interpretation Comments POTASSIUM (BEAKER) (test code = 5.9 meq/L 3.6-5.5 H 379) GLUCOSE-STAT [id number] 09:44:00 Test Item Value Reference Range Interpretation Comments GLUCOSE RANDOM (BEAKER) (test code 204 mg/dL 70-110 H = 652) HGB/HCT (H&H) - STAT [id number] 09:44:00 Test Item Value Reference Range Interpretation Comments HEMOGLOBIN (BEAKER) (test code = 8.2 g/dL 13.0-16.8 L 410) HEMATOCRIT (BEAKER) (test code = 24.0 % 40.0-50.0 L 411) SODIUM NA-STAT [id number] 09:16:00 Test Item Value Reference Range Interpretation Comments SODIUM (BEAKER) (test code = 381) 132 meq/L 135-148 L POTASSIUM-STAT [id number] 09:16:00 Test Item Value Reference Range Interpretation Comments POTASSIUM (BEAKER) (test code = 5.6 meq/L 3.6-5.5 H 379) HGB/HCT (H&H) - STAT [id number] 09:16:00 Test Item Value Reference Range Interpretation Comments HEMOGLOBIN (BEAKER) (test code = 8.1 g/dL 13.0-16.8 L 410) HEMATOCRIT (BEAKER) (test code = 24.0 % 40.0-50.0 L 411) BLOOD GAS, [id number] 09:15:00 Test Item Value Reference Range Interpretation [...] (test code = 1819) 80.0 % GLUCOSE-STAT [id number] 09:15:00 Test Item Value Reference Range Interpretation Comments GLUCOSE RANDOM (BEAKER) (test code 207 mg/dL 70-110 H = 652) [id number] 08:51:00 Test Item Value Reference Range Interpretation Comments ACTIVATED CLOTTING TIME 577 sec TEST ED AT [facility] 6720 (BEAKER) (test code = TABATHA [place] 441) [address] BLOOD GAS, [id number] 08:20:00 Test Item Value Reference Range Interpretation [...] (test code = 1819) 100.0 % GLUCOSE-STAT [id number] 08:20:00 Test Item Value Reference Range Interpretation Comments GLUCOSE RANDOM (BEAKER) (test code 132 mg/dL 70-110 H = 652) POTASSIUM-STAT [id number] 08:19:00 Test Item Value Reference Range Interpretation Comments POTASSIUM (BEAKER) (test code = 3.8 meq/L 3.6-5.5 379) HGB/HCT (H&H) - STAT [id number] 08:19:00 Test Item Value Reference Range Interpretation Comments HEMOGLOBIN (HALLIE) (test code = 14.2 g/dL 13.0-16.8 410) HEMATOCRIT (HALLIE) (test code = 42.0 % 40.0-50.0 411) SODIUM NA-STAT [id number] 08:19:00 Test Item Value Reference Range Interpretation Comments SODIUM (HALLIE) (test code = 381) 138 meq/L 135-148 POCT-GLUCOSE [id number] 06:27:00 Test Item Value Reference Range Interpretation Comments POC-GLUCOSE METER 130 mg/dL 70-110 H TESTED AT [facility] 6720 (HALLIE) (test code = TABATHA [place] 1538) [address] CT, CHEST, WITHOUT [id number] 17:18:00preop AVR ACB assess for calcification aortaAddendum BeginsREPORT STATUS:A Addendum: I agree with the previously described non vascular findings. Signed: Kai Hightower Verified Date/Time: 07/09/2018 17:18:52 Reading Location: [place] [id number] Angio Body Reading RoomAddendum EndsFINAL REPORT CT [...] to the contrast sheet scanned in the Adform system for the amount and route of [...] dictated regarding the non-vascular findings by the Entry Analyst Radiologist. Signed: Michele Lua Verified Date/Time: 07/09/2018 14:59:04 Reading Location: [facility] P047 Cardiology MRI RAD, CHEST, 2 [id number] 14:54:00Reason for exam:->pre opFINAL REPORT Chest, 2 views. Clinical History: pre op Comparison Study: None Findings: The heart and lungs are within normal limits. The aorta is tortuous. The pleural spaces are clear. No significant bony or soft tissue abnormalities are seen. Impression: No active cardiopulmonary disease. Signed: Luan Mcmanus Verified Date/Time: 07/09/2018 14:54:20 Reading Location: [facility] [id number] Consult Reading Room HEMOGLOBIN [id number] 14:40:00 Test Item Value Reference Range Interpretation Comments HEMOGLOBIN A1C (BEAKER) (test code = 6.4 % 4.3-6.1 H 368) BASIC METABOLIC [id number] 13:47:00 Test Item Value Reference Range Interpretation [...] NOT APPLICABLE FOR DIALYSIS PATIEN TS. PROTHROMBIN [id number] 13:36:00 Test Item Value Reference Range Interpretation [...] % 0-1 PERCENT (BEAKER) (test code = 3811)
[2020-04-19 17:37] VITALS: TEMP 98.7
[2020-04-19 17:41] VITALS: BP 147/94; O2SAT 95
== END 2020-04-19 17:33 | disposition short-term general hospital (02) ==
LOC: ER 11:35
DX: S06.5X0A Traumatic subdural hemorrhage without loss of consciousness, initial encounter (principal); W01.0XXA Fall on same level from slipping, tripping and stumbling without subsequent striking against object, initial encounter; Y92.008 Other place in unspecified non-institutional (private) residence as the place of occurrence of the external cause; Z79.01 Long term (current) use of anticoagulants; Z79.82 Long term (current) use of aspirin; F03.90 Unspecified dementia, unspecified severity, without behavioral disturbance, psychotic disturbance, mood disturbance, and anxiety; E11.9 Type 2 diabetes mellitus without complications; E03.9 Hypothyroidism, unspecified; Z85.819 Personal history of malignant neoplasm of unspecified site of lip, oral cavity, and pharynx; I10 Essential (primary) hypertension; Z96.642 Presence of left artificial hip joint; Z95.2 Presence of prosthetic heart valve
CPT/HCPCS: 36415; 70450; 71045; 80048; 80076; 83735; 83880; 84484; 85025; 85610; 93005; 99285

== ENCOUNTER 2020-07-16 17:51 | Emergency (ER) | payer OTHER ==
--- OUTSIDE RECORDS SUMMARY | 2020-07-16 17:57 | XMS REPORT | Continuity of Care Document ---
:1940 Author Organization [facility] t Address [address] [place] [address] Dr. Bonilla. [address] [place] [address] Care Team Providers Name Role Phone Emmy Jones MD Primary Care Physician Charlie Worley Attending Clinician Afua Jackson Attending Clinician Unavailable Gena Stout Attending Clinician John Lepe MD Attending Clinician GENA STOUT Attending Clinician Unavailable Mary Ford MD Attending Clinician Unavailable Raffy Her MD Attending Clinician Mary FORD Attending Clinician Unavailable DAVID TALAVERA Attending Clinician Unavailable JOHN LEPE Admitting Clinician Unavailable Mary FORD Admitting Clinician Unavailable DAVID TALAVERA Admitting Clinician Unavailable Payers Payer Name Policy Type Policy Number Effective Date Expiration Date Juana willams AETNA - MEDICARE [id number] [address] [facility] [address] [facility] MGD CAREAETNA 00:00:00 - Medical MEDICARE O POS Center [id number] [address] Problems Condition Condition Condition Status Onset Resolution Last Treating Co mments Source Name Details Category Date Date Treatment Clinician Date [place] Disease [facility] HLD HLD Disease Active [facility] (hyperlipi (hyperlipi 2-11 Yen kes - demia) demia) 00:00: Medical 00 Center Coagulopat Coagulopat Disease Active [facility] Center SDH SDH Disease Active [facility] (subdural (subdural 2-10 [facility] - hematoma) hematoma) 00:00: [facility] 00 Center S/P AVR S/P AVR Disease Active [facility] (aortic (aortic 5-14 [facility] - valve valve 00:00: Medical replacemen replacemen 00 Ce nter t) t) S/P CABG x S/P CABG x Disease Active [facility] 1 1 5-14 [facility] - [facility] Medical 00 Center Myoclonus Problem Active 2020-07-15 Me moria (finding) 07-09 21:30:00 l 00:00: Robin 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 07/09/2016 Problem 07/15/2020 [facility] Amnesia Problem Active 2020-07-15 Ulises sasha (finding) 07-26 21:30:00 l Amnesia 00:00: Robin (finding) 00 Active 07/27/2015 Problem 07/15/2020 [facility] Diabetes Problem Active 2020-07-15 Mem oria mellitus 21:30:00 l type 2 Diabetes Tolu n (disorder) mellitus type 2 (disorder) Active Problem 07/15/2020 [facility] Hypothyroi Problem Active 2020-07-15 M emoria dism 21:30:00 l (disorder) Tolu n Hypothyroi dism (disorder) Active Problem 07/15/2020 [facility] 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, of the senile Alzheimer onset type, (disorder) senile onset (disorder) Active Problem 07/15/2020 [facility] Syncope Problem Active 2020-07-15 Ulises sasha (disorder) 21:30:00 l Syncope [place] (disorder) Active Problem 07/15/2020 [facility] DM DM Disease Active [facility] (diabetes (diabetes [facility] - mellitus) mellitus) [facility] Coronary Coronary Disease Active [facility] artery artery [facility] disease [facility] Hypertensi Hypertensi Disease Active [facility] on on [facility] Aortic Aortic Disease Active [facility] stenosis stenosis [facility] Atrial Atrial Disease Active [facility] fibrillati fibrillati [facility] - on on [facility] Center Allergies, Adverse Reactions, Alerts Allergy Allergy Status Severity Reaction(s) Onset Inactive Treating Comm ents Source Name Type Date Date Clinician No Known No Known Active Memori a Medicati Medicati l on on Robin Medeiros s s Family History Family Member Diagnosis Comments Start Date Stop Date Source Natural mother Diabetes [facility] Natural mother Heart disease [facility] Natural father Heart disease [facility] Social History Social Habit Start Date Stop Date Quantity Comments Source History of tobacco Current smoker I [facility] - use [facility] - Alcohol Std Drinks [facility] B[facility] Medical Abiel ter Sex Assigned At [facility] Social History 2020-01-14 2020-01-14 [facility] 16:52:28 16:52:28 Cigarettes smoked 2018-07-22 2018-07-[address] [facility] [address] [facility] - current (pack per 00:00:00 00:00:00 [facility] Center day) - Reported Cigarette 2018-07-22 2018-07-22 [facility] arlyn - pack-years 00:00:00 00:00:00 [facility] Tobacco use and 2018-07-22 2018-07-22 Former user [facility] - exposure 00:00:00 00:00:00 [facility] Alcohol intake 2018-07-22 2018-07-22 [facility]00:00 non-drinker of Medical Ce nter alcohol (finding) History SDOH 2018-07-09 2018-07-[address] Olivia - Alcohol Frequency 00:00:00 00:00:00 [facility] Center Smoking Status Start Date Stop Date Source Former smoker 2018-07-22 00:00:00 2018-07-22 00:00:00 [facility] Medications Ordered Filled Start Stop Current Ordering Indication Dosage Frequency Signature Comments Components Source Medication Medication Date Date Medication? Clinician (SIG) Name Name Lisinopril Yes 20 mg, PO, M emoria 2-24 Daily, 0 l 21:28: Refill(s) Amiodarone Yes 200 mg, Ulises sasha 2-24 PO, BID, 0 l 21:28: Refill(s) atorvastati Yes 20 mg, PO, Memoria n 2-24 Daily, 0 l 21:28: Refill(s) donepezil Yes 10 mg, PO, Me moria 2-24 Daily, 0 l 21:28: Refill(s) Famotidine Yes 20 mg = 1 Me moria 2-24 tab, PO, l 21:28: BID, # 60 tab, 0 Refill(s) acetaminoph Yes 650 mg = 2 Memoria en 325 mg 2-24 tab, PO, l oral tablet 21:28: Q6H, 0 Herm Refill(s) DULoxetine Yes 20mg QD Take 1 [facility] (CYMBALTA) 2-19 capsule [facility] - 20 MG 00:00: (20 mg Medical capsule 00 total) by Center mouth daily. levothyroxi Yes 125ug Take [address] ne 2-19 tablet [facility] - (SYNTHROID, 00:00: (125 mcg Me dical LEVOTHROID) 00 total) by [facility] ter 125 MCG mouth tablet Every morning on an empty stomach. lisinopriL Yes 20mg QD Take 1 [facility] (PRINIVIL,Z 2-19 tablet (20 Yen kes - ESTRIL) 20 00:00: mg total) Me dical MG tablet 00 by mouth Center daily. levothyroxi 2020- No 125ug Take [address] ne 2-18 02-18 mcg by [facility]ukes - (SYNTHROID, 11:36: 00:00 mouth Medi tenzin LEVOTHROID) 41 :00 Every Center 125 MCG morning on tablet an empty stomach. DULoxetine 2020- No 20mg QD Take [address] (CYMBALTA) 2-18 02-18 by mouth Luke s - 20 MG 11:36: 00:00 daily. Medical capsule 41 :00 Center aluminum-ma 2020- No 30mL Take [address] gnesium 04-27-18 mLs by [facility] - hydroxide-s 11:36: 00:00 mouth as M edical imethicone 41 :00 needed. Center (MAALOX PLUS) suspension 200-200-20 mg/5 mL atorvastati 2020- No 20mg QD Take [address] n (LIPITOR) 04-27-18 by mouth Tay es - 20 MG 11:36: 00:00 daily. Medical tablet 41 :00 Center metoprolol 2020- No 50mg Q.5D Take [address] tartrate 04-27-18 by mouth 2 Luke s - (LOPRESSOR) 11:36: 00:00 (two) Medi tenzin 50 MG 41 :00 times Center tablet daily. metFORMIN 2020- No 500mg Take [address] (GLUCOPHAGE 04-27-18 mg by [facility] - ) 500 MG 10:40: 00:00 mouth Medical tablet 41 :00 daily with Center breakfast. donepezil 2020- No 10mg QD Take [address] (ARICEPT) 04-27-18 by mouth [facility] - 10 MG 10:40: 00:00 daily. Medical tablet 41 :00 [place] amiodarone 2020- No 200mg Q.5D Take [address] (PACERONE) 04-27-18 mg by [facility] - 200 MG 10:40: 00:00 mouth 2 Medical tablet 41 :00 (two) Center times daily. lisinopriL 2020- No 10mg QD Take [address] (PRINIVIL,Z 04-27-18 by mouth Tay es - ESTRIL) 10 10:40: 00:00 daily. Medi tenzin MG tablet 41 :00 Center atorvastati Yes 20mg QD Take [address] n (LIPITOR) 2-18 tablet (20 Yen kes - 20 MG 00:00: mg total) Medical tablet 00 by mouth Center nightly. amiodarone Yes 200mg Q.5D Take [address] (PACERONE) 2-18 tablet [facility] - 200 MG 00:00: (200 mg Medical tablet 00 total) by Center mouth 2 (two) times daily. donepeziL Yes 10mg QD Take [address] (ARICEPT) 2-18 tablet (10 Luke s - 10 MG 00:00: mg total) Medical tablet 00 by mouth Center daily. famotidine Yes 20mg Take 1 [facility] (PEPCID) 20 2-18 tablet (20 Yen kes - MG tablet 00:00: mg total) Med ical 00 by mouth Center every 12 (twelve) hours. metoprolol Yes 50mg Q.5D Take 1 [facility] tartrate 2-18 tablet (50 [facility] - (LOPRESSOR) 00:00: mg total) M edical 50 MG 00 by mouth 2 Center tablet (two) times daily. senna-docus Yes 1{tbl} QD Take [address] ate 2-18 tablet by [facility]ukes - (SENOKOT S) 00:00: mouth Medic al 8.6-50 mg 00 nightly. Center per tablet methyl Yes 35g Apply 35 g [facility] t salicylate- 2-18 topically Tay es - menthol 00:00: 3 (three) Medic al 15-10 % 00 times Center Crea daily as needed (knee and shoulder pain). metFORMIN Yes 500mg Take 1 [facility] (GLUCOPHAGE 2-18 tablet [facility] - ) 500 MG 00:00: (500 mg Medica l tablet 00 total) by Center mouth daily with breakfast. acetaminoph Yes 325mg Take [address] [facility] en 2-18 tablet [facility] - (TYLENOL) 00:00: (325 mg Medic al 325 MG 00 total) by Center tablet mouth every 6 (six) hours as needed. aspirin 81 2020- No 81mg QD Take [address] MG EC -12 by mouth [facility] - tablet 12:26: 00:00 daily. Medical 26 :00 Center rivaroxaban 2020- No Take by [facility] (XARELTO) -04-21 mouth [facility] - 20 mg Tab 12:26: 00:00 daily with M edical tablet 26 :00 dinner. Center rivaroxaban 2020- No Take by [facility] (XARELTO) 04-19 mouth [facility] - 20 mg Tab 18:52: 00:00 daily with M edical tablet 58 :00 dinner. Center Memantine 2019-03 Yes 10 mg = 1 Mem oria hydrochlori 1-06 tab, PO, l de 10 MG 16:49: BID, # 180 Her valente Oral Tablet 00 tab, 3 [Namenda] Refill(s), Pharmacy: [facility] #[id number], 170.18, cm, 10/22/19 9:06:00 CDT, Height, 107.727, kg, 10/22/19 9:06:00 CDT, Weight DULoxetine Yes See Memoria 20 mg oral 9-14 Instructio l delayed 15:17: ns, TAKE 1 Herm gilbert release 00 CAPSULE BY capsule MOUTH EVERY DAY, # 90 unknown unit, 2 Refill(s), Pharmacy: [facility] #[id number], 170.18, cm, 10/22/19 9:06:00 CDT, Height, 107.727, kg, 10/22/19 9:06:00 CDT, Weight Memantine Yes 5 mg = 1 Ulises sasha hydrochlori 8-14 tab, PO, l de 5 MG 14:20: BID, # 60 Tracy nn Oral Tablet 00 tab, 3 [Namenda] Refill(s), Pharmacy: [facility] #[id number], 170.18, cm, 10/22/19 9:06:00 CDT, Height, 107.727, kg, 10/22/19 9:06:00 CDT, Weight DULoxetine Yes = 1 cap, Mem oria 20 mg oral 3-16 PO, Daily, l delayed 16:01: # 90 cap, Tracy nn release 00 1 capsule Refill(s), Pharmacy: [facility] #[id number] rivaroxaban 2018- Yes 20 mg = 1 M emoria 20 MG Oral 8-14 tab, PO, l Tablet 14:43: QPM, # 30 Tolu n [Xarelto] 00 tab, 3 Refill(s) DULoxetine Yes = 1 cap, Mem oria 20 mg oral 7-24 PO, Daily, l delayed 22:16: # 90 cap, Tracy nn release 51 1 capsule Refill(s), Pharmacy: [facility] #[id number] amiodarone 2019- No 200mg Q.5D Take [address] [...] nn 07 30 tab, Refill(s) 5, Pharmacy: [facility] #[id number] DULoxetine Yes = 1 cap, Mem oria 20 mg oral 3-24 PO, Daily, l delayed 21:08: # 30 [place] release 47 unknown capsule unit, Refill(s) 5, Pharmacy: [facility] #[id number] Vital Signs Vital Name Observation Time Observation Value Comments Source Systolic (mm Hg) 2020-07-06 16:00:00 Ulises rial Robin Diastolic (mm Hg) 2020-07-06 16:00:00 Mem orial Robin Heart Rate 2020-07-06 16:00:00 [facility] Respitory Rate 2020-07-06 16:00:00 Denysori al [place] Height 2020-07-06 16:00:00 175.26 cm [facility] Weight 2020-07-06 16:00:00 [facility] [place] BMI Calculated 2020-07-06 16:00:00 Memori al [place] Systolic (mm Hg) 2020-06-14 14:02:00 Ulises rial [place] Diastolic (mm Hg) 2020-06-14 14:02:00 Mem orial [place] Heart Rate 2020-06-14 14:02:00 [facility] Respitory Rate 2020-06-14 14:02:00 Memori al Robin Height 2020-06-14 14:02:00 175.26 cm [facility] Robin Weight 2020-06-14 14:02:00 [facility] [place] BMI Calculated 2020-06-14 14:02:00 Memori al Robin Systolic (mm Hg) 2020-05-03 20:50:00 Ulises rial [place] Diastolic (mm Hg) 2020-05-03 20:50:00 Mem orial Robin Heart Rate 2020-05-03 20:50:00 [facility] [place] Respitory Rate 2020-05-03 20:50:00 Memori al [place] Height 2020-05-03 20:50:00 175.26 cm [facility] Robin Weight 2020-05-03 20:50:00 [facility] Robin BMI Calculated 2020-05-03 20:50:00 Memori al Robin Body weight 2020-04-28 05:48:00 98.748 kg [facility] BMI 2020-04-28 05:48:00 32.15 kg/m2 [facility] Heart rate 2020-04-28 05:47:00 57 /min [facility] Body temperature 2020-04-28 05:47:00 35.94 [facility] Respiratory rate 2020-04-28 05:47:00 17 /min [facility] Oxygen saturation in 2020-04-28 05:47:00 95 /min [facility] Arterial blood by Medical Ce nter Pulse oximetry Systolic blood 2020-04-28 05:47:00 126 mm[Hg] [facility] Diastolic blood 2020-04-28 05:47:00 69 mm[Hg] [facility] Body height 2020-04-21 15:50:00 175.3 cm [facility] Systolic (mm Hg) 2020-01-14 16:41:00 Ulises rial Robin Diastolic (mm Hg) 2020-01-14 16:41:00 Mem orial Robin Heart Rate 2020-01-14 16:41:00 [facility] Robin Respitory Rate 2020-01-14 16:41:00 Memori al Robin Height 2020-01-14 16:41:00 167.64 cm [facility] [place] Weight 2020-01-14 16:41:00 [facility] [place] BMI Calculated 2020-01-14 16:41:00 Memori al Robin Systolic (mm Hg) 2019-10-22 14:06:00 Ulises rial [place] Diastolic (mm Hg) 2019-10-22 14:06:00 Mem orial Robin Heart Rate 2019-10-22 14:06:00 [facility] [place] Respitory Rate 2019-10-22 14:06:00 Memori al [place] Height 2019-10-22 14:06:00 170.18 cm [facility] Robin Weight 2019-10-22 14:06:00 [facility] [place] BMI Calculated 2019-10-22 14:06:00 Memori al Robin Systolic (mm Hg) 2018-10-21 14:43:00 Ulises rial Robin Diastolic (mm Hg) 2018-10-21 14:43:00 Mem orial [place] Systolic (mm Hg) 2018-10-21 14:18:00 Ulises rial [place] Diastolic (mm Hg) 2018-10-21 14:18:00 Mem orial [place] Heart Rate 2018-10-21 14:18:00 [facility] [place] Respitory Rate 2018-10-21 14:18:00 Memori al [place] Height 2018-10-21 14:18:00 170.18 cm [facility] [place] Weight 2018-10-21 14:18:00 [facility] Robin BMI Calculated 2018-10-21 14:18:00 Memori al [place] Procedures Procedure Date / Time Performing Clinician Source Performed POCT-GLUCOSE METER 2020-04-28 06:24:00 Soraida Jimenez [facility] POCT-GLUCOSE METER 2020-04-27 16:56:00 Soraida Jimenez [facility] POCT-GLUCOSE METER 2020-04-27 06:38:00 [facility] SARS-COV2/RT-[facility] ([facility] & 2020-04-27 04:44:00 John Lepe [facility] POCT-GLUCOSE METER 2020-04-26 21:12:00 [facility] 2020-04-26 16:50:00 [facility]SE [facility]ER 2020-04-26 10:54:00 [facility] POCT-GLUCOSE METER 2020-04-26 06:26:00 [facility]SE METER 2020-04-25 20:42:00 [facility]UCOSE METER 2020-04-25 17:02:00 [facility] PO[facility]UCOSE METER 2020-04-25 11:48:00 [facility] PO[facility]UCOSE METER 2020-04-25 06:17:00 [facility]UCOSE METER 2020-04-24 20:54:00 [facility] PO[facility]UCOSE METER 2020-04-24 16:39:00 [facility] PO[facility]UCOSE METER 2020-04-24 11:45:00 [facility] PO[facility]UCOSE METER 2020-04-24 06:21:00 [facility] BASIC METABOLIC PANEL 2020-04-24 04:35:[address] POCT-GLUCOSE METER 2020-04-23 20:43:00 [facility] PO[facility]UCOSE METER 2020-04-23 16:32:00 [facility] PO[facility]-GLUCOSE METER 2020-04-23 11:37:00 Soraida Jimenez [facility] POCT-GLUCOSE METER 2020-04-23 06:23:00 John Lepe [facility] POCT-GLUCOSE METER 2020-04-22 20:51:00 John Lepe [facility] POCT-GLUCOSE METER 2020-04-22 16:44:00 Soraida Jimenez [facility] POCT-GLUCOSE METER 2020-04-22 12:03:00 John Lepe [facility] POCT-GLUCOSE METER 2020-04-22 06:30:00 John Lepe [facility] COMPREHENSIVE METABOLIC 2020-04-22 05:18:00 Soraida Jimenez [facility] CBC W/PLT COUNT & AUTO 2020-04-22 05:18:00 Soraida Jimenez [facility] PHOSPHORUS 2020-04-22 05:18:00 Soraida Jimenez [facility] VITAMIN B12 AND FOLATE 2020-04-22 05:18:00 Soraida Jimenez [facility] POCT-GLUCOSE METER 2020-04-21 21:04:00 John Lepe [facility] POCT-GLUCOSE METER 2020-04-21 17:04:[address] [facility] CBC W/PLT COUNT & AUTO 2020-04-21 03:58:00 France Goodrich [facility] COMPREHENSIVE METABOLIC 2020-04-21 03:58:00 France Goodrich CH, I [facility] MAGNESIUM 2020-04-21 03:58:00 France Goodrich [facility] PHOSPHORUS 2020-04-21 03:58:00 France Goodrich [facility] SARS-COV2/RT-PCR ([facility] & 2020-04-20 18:10:00 Keven Her [facility] - REF LABS) [facility] MR BRAIN WITHOUT IV 2020-04-20 17:33:00 France Goodrich [facility] - CONTRAST [facility] 2D ECHO W/ DOPPLER 2020-04-20 10:12:15 Vishal Stokes [facility] - (CW/PW/COLOR) [facility] APTT 2020-04-20 05:02:00 [place], [facility] PROTHROMBIN TIME/INR 2020-04-20 05:02:00 [facility] COMPREHENSIVE METABOLIC 2020-04-20 04:50:00 [place], [facility] CBC W/PLT COUNT & AUTO 2020-04-20 04:50:00 [facility] S t [facility] DIFFERENTIAL [facility] MAGNESIUM 2020-04-20 04:50:00 [place], [facility] PHOSPHORUS 2020-04-20 04:50:00 [place], [facility] TSH/FREE T4 IF INDICATED 2020-04-20 04:50:00 [facility], [facility] LIPID PANEL 2020-04-20 04:50:00 [facility], [facility] HEMOGLOBIN A1C 2020-04-20 04:50:00 [facility], [facility] CT BRAIN WITHOUT IV 2020-04-20 02:18:00 [facility], [facility] Aortic valve replacement Mihaela Kelly and plication of ascending aorta Plan of Care Planned Activity Planned Date Details Comments Source Future Scheduled 2020-11-08 INFLUENZA VACCINE [facility] - Test 00:00:00 (Season Ended) [code = [facility] INFLUENZA VACCINE (Season Ended)] Future Scheduled 2020-10-[address] [facility] - Test 00:00:00 [facility] (procedure) [code = 94240367] Future Scheduled 2020-10-08 INFLUENZA VACCINE [place] [facility] 00:00:00 [code = INFLUENZA VACCINE] Future Scheduled 2020-03-[address] [facility] - Test 00:00:00 (12+) [code = Medical Center DEPRESSION SCREENING (12+)] Future Scheduled 2019-03-[address] [facility] [facility] - Test 00:00:00 WELLNESS (YEAR 2 or Medical Center FIRST YEAR if no IPPE) [code = MEDICARE ANNUAL WELLNESS (YEAR 2 or FIRST YEAR if no IPPE)] Future Scheduled 2005 65+ PNEUMOCOCCAL [place] [facility] Test 00:00:00 VACCINE (1 of 1 - PPSV23) [code = 65+ PNEUMOCOCCAL VACCINE (1 of 1 - PPSV23)] Future Scheduled 2005 PNEUMOCOCCAL 65+ YRS [facility] - Test 00:00:00 (1 of 1 - Medical Center [id number]) [code = PNEUMOCOCCAL 65+ YRS (1 of 1 - [id number] PCV13)] Future Scheduled 1990 SHINGLES VACCINES (#1) [place] [facility] Test 00:00:00 [code = SHINGLES VACCINES (#1)] Future Scheduled 1990 SHINGLES VACCINES ([address] [facility] - Test 00:00:00 of 2) [code = SHINGLES Medic al Center VACCINES (1 of 2)] Future Scheduled 1959-05-16 DTAP/TDAP/TD VACCINES [facility] - Test 00:00:00 (1 - Tdap) [code = Medical C enter DTAP/TDAP/TD VACCINES (1 - Tdap)] Future Scheduled 1956 COVID-19 VACCINE (1) [facility] Test 00:00:00 [code = COVID-19 VACCINE (1)] Future Scheduled 1950 DIABETIC EYE EXAM [facility] - Test 00:00:00 [code = DIABETIC EYE Medical Center EXAM] Future Scheduled [address] [facility] - Test 00:00:00 examination Medical Center (regime/therapy) [code = 910055746] Future Scheduled 1950 Urine screening for [facility] - Test 00:00:00 protein (procedure) Medical Center [code = 078946751] Encounters Start End Encounter Admission Attending Care Care Encounter Source Date/Time Date/Time Type Type Clinicians Facility Department ID 2020-07-13 2020-07-13 Outpatient EMERY WorleyMISCHER MHMISCHER [id number] 10:30:00 10:30:00 Jaycob 08 Charlie 2020-07-06 2020-07-06 Outpatient EMERY WorleyMISCHER MHMISCHER [id number] 10:30:00 23:59:59 Jaycob 12 Charlie 2020-06-15 2020-06-15 Outpatient Brunilad MHMISCHER MHMISCHER [id number] 13:00:00 23:59:59 Jaycob 11 Charlie 2020-06-14 2020-06-14 Outpatient Brunilda MHMISCHER MHMISCHER [id number] 09:00:00 23:59:59 Jaycob 10 Charlie 2020-05-03 2020-05-03 Outpatient EMERY WorleyMISCHER MHMISCHER [id number] 14:30:00 23:59:59 Jaycob 09 Charlie 2020-01-14 2020-01-14 Outpatient EMERY WorleyMISCHER MHMISCHER [id number] 10:30:00 23:59:59 Jaycob 07 Charlie 2019-10-22 2019-10-22 Outpatient EMERY WorleyMISCHER MHMISCHER [id number] 09:00:00 23:59:59 Jaycob 06 Charlie 2019-10-22 2019-10-22 Outpatient Brunilda MHMISCHER MHMISCHER [id number] 09:00:00 09:00:00 Jaycob 05 Charlie 2018-10-21 2018-10-21 Outpatient Brunilda MHMISCHER MHMISCHER [id number] 09:00:00 23:59:59 Jaycob Charlie 2018-07-29 2018-07-29 Outpatient Brunilda MHMISCHER MHMISCHER [id number] 09:15:00 09:15:00 Jaycob 03 Charlie 2018-02-04 2018-02-05 Outpatient MHMISCHER MHMISCHER [id number] 11:54:00 23:59:59 01 Results Test Description Test Time Test Comments Results Result Comments Source POC-Glucose meter 2020-04-28 06:37:00 Test Item Value Reference Range Interpretation Comme nts POC-Glucose Meter (test code = 112 mg/dL 70-110 H : TESTED AT [facility] [address] 1538) [facility] [place] [id number]: Detective [place]/Techni walt ID = [id number] for Antonina Rose Lab Interpretation (test code = Abnormal 81252-0) [facility] [id number] 06:37:00 Test Item Value Reference Range Interpretation Comments POC-GLUCOSE METER 112 mg/dL 70-110 H : TESTED A T [facility] [address] (BEAKER) (test code CAM[place] E BLDG A, = 1538) [place] [id number] 0: Detective [place]/Techni walt ID = [id number] for Elsy Donald POCT-GLUCOSE [id number] 17:09:00 Test Item Value Reference Range Interpretation Comments POC-GLUCOSE METER 126 mg/dL 70-110 H : TESTED A T [facility] [address] (BEAKER) (test code CAMBRIDG E BLDG A, = 1538) [place] [id number] 0: Detective [place]/Techni walt ID = [id number] for Bisi Andujar POCT-GLUCOSE [id number] 06:49:00 Test Item Value Reference Range Interpretation Comments POC-GLUCOSE METER 92 mg/dL 70-110 : TESTED A T [facility] (BEAKER) (test code = CAMBRI DGE BLDG A, 1538) [place] [id number] 0: Detective [place]/Techni walt ID = [id number] for ETHAN HOFF SARS-CoV2/RT-PCR (Asymptomatic ONLY)2020-04-27 05:38:00 Test Item Value Reference Range Interpretation Comments SARS-COV2/RT-PCR Negative Not Detected, (test code = Negative, See 23993-2) external report for linked test SARS-COV-2 [facility] (test code = 63737-6) SUSHILA (test code = Negative results do not SUSHILA) preclude SARS-CoV-2 infection and should not be used as the sole basis for patient management decisions. Negative results must be combined with clinical observations, patient history, and epidemiological information. A false negative result may occur if a specimen is improperly collected, transported or handled. The limit of detection for this assay is 250 copies/mL. This SARS CoV-2 test is a rapid, real-time RT-PCR test intended for the qualitative detection of nucleic acid from SARS-CoV-2 in a nasopharyngeal swab specimen collected from individuals suspected of COVID-19 by their healthcare provider. This test has not been Food and Drug Administration (FDA) cleared or approved and has been authorized by FDA under an Emergency Use Authorization (EUA). This EUA will be effective until the declaration that circumstances exist justifying the authorization of the emergency use of in vitro diagnostic tests for detection and/or diagnosis of COVID-19 is terminated under Section 564(b)(2) of the Act or the EUA is revoked under Section 564(g) of the Act. Fact Sheet for Healthcare Providers:https://www.[employer]/Documents/Xper t%20Xpress%20SARS%20CoV- 2/Fact%20Sheets/3023802 %32FXEF-BZH-8%20HEALTHCA RE%20PROVIDERS%20FACT%20 SHEET.pdf Fact Sheet for Healthcare Patients:https://www.[employer]/Documents/Xpert %20Xpress%20SARS%20CoV-2 /Fact%20Sheets/3023801% 20IIRG-QBS-8%20PATIENT%2 0FACT%20SHEET.pdf Performing Laboratory:[facility] [place], [place] [address]marcelle [facility].[place], [place] [address] [place], [place] [id number]-COV2/RT-PCR ([facility])2020-04-27 05:38:00 Test Item Value Reference Range Interpretation Comments SARS-COV2/RT-PCR (test code Negative Not Detected, Negative, = 8423862) See external report for linked test SARS-COV-2 PERFORMING LAB [facility] (test code = 7068280) Negative results do not preclude SARS-CoV-2 infection and should not be used as the sole basis for patient management decisions. Negative results must be combined with clinical observations, patient history, and epidemiological information. A false negative result may occur if a specimen is improperly collected, transported or handled.The limit of detection for this assay is 250 copies/mL.This SARS CoV-2 test is a rapid, real-time RT-PCR test intended for the qualitative detection of nucleic acid from SARS-CoV-2 in a nasopharyngeal swab specimen collected from individuals suspected of COVID-19 by their healthcare provider.This test has not been Food and Drug Administration (FDA) cleared or approved and has been authorized by FDA under an Emergency Use Authorization (EUA). This EUA will be effective until the declaration that circumstances exist justifying the authorization of the emergency use of in vitro diagnostic tests for detection and/or diagnosis of COVID-19 is terminated under Section 564(b)(2) of the Act or the EUA is revoked under Section 564(g) of the Act.Fact Sheet for Healthcare Pro viders:https://www.[employer]/Documents/Xpert%20Xpress%20SARS%20CoV-2/Fact%20Sh eets/302-3802%61SJNX-IRC-6%20HEALTHCARE%20PROVIDERS%20FACT%20SHEET.pdfFact Sheet for Healthcare Patients:https://www.[employer]/Documents/Xpert%20Xpress%20SARS%20CoV-2/Fact%20Sheets/302-3801%20SARS-COV -2%20PATIENT%20FACT%20SHEET.pdfPerforming Laboratory:[facility], [place] [address]AIRE-VXPYQRO [id number] 21:25:00 Test Item Value Reference Range Interpretation Comments POC-GLUCOSE METER 104 mg/dL 70-110 : TESTED A T [facility] 7200 (BEAKER) (test code CAMBRIDG E BLDG A, = 1538) [place] [address] 0: Detective Bowling Alley/Techni walt ID = [id number] for CODY ROBERTS ETHNA POCT-GLUCOSE [id number] 17:03:00 Test Item Value Reference Range Interpretation Comments POC-GLUCOSE METER 114 mg/dL 70-110 H : TESTED A T [facility] (BEAKER) (test code CAMBRIDG E BLDG A, = 1538) [place] [address] 0: Detective Bowling Alley/Techni walt ID = [id number] for JATIN S SHANNON POCT-GLUCOSE [id number] 11:05:00 Test Item Value Reference Range Interpretation Comments POC-GLUCOSE METER 132 mg/dL 70-110 H : TESTED A T [facility] (BEAKER) (test code CAMBRIDG E BLDG A, = 1538) [place] [address] 0: Detective Bowling Alley/Techni walt ID = [id number] for JATIN S SHANNON POCT-GLUCOSE [id number] 06:37:00 Test Item Value Reference Range Interpretation Comments POC-GLUCOSE METER 119 mg/dL 70-110 H : TESTED A T [facility] (BEAKER) (test code CAMBRIDG E BLDG A, = 1538) [place] [address] 0: Detective Bowling Alley/Techni walt ID = [id number] for CAMF IELD, CRYSTAL POCT-GLUCOSE [id number] 20:54:00 Test Item Value Reference Range Interpretation Comments POC-GLUCOSE METER 142 mg/dL 70-110 H : TESTED A T [facility] (BEAKER) (test code CAMBRIDG E BLDG A, = 1538) [place] [address] 0: Detective Bowling Alley/Techni walt ID = [id number] for CAMF IELD, CRYSTAL POCT-GLUCOSE [id number] 17:18:00 Test Item Value Reference Range Interpretation Comments POC-GLUCOSE METER 120 mg/dL 70-110 H : TESTED A T [facility] (BEAKER) (test code CAMBRIDG E BLDG A, = 1538) [place] [address] 0: Detective Bowling Alley/Techni walt ID = [id number] for CEDRIC JAIME, NEO ELBA POCT-GLUCOSE [id number] 11:59:00 Test Item Value Reference Range Interpretation Comments POC-GLUCOSE METER 106 mg/dL 70-110 : TESTED A T [facility] (BEAKER) (test code CAMBRIDG E BLDG A, = 1538) [place] [address] 0: Detective Bowling Alley/Techni walt ID = [id number] for CEDRIC JAIME, NEO ELBA POCT-GLUCOSE [id number] 06:29:00 Test Item Value Reference Range Interpretation Comments POC-GLUCOSE METER 113 mg/dL 70-110 H : TESTED A T [facility] (BEAKER) (test code CAMBRIDG E BLDG A, = 1538) [place] [address] 0: Detective Bowling Alley/Techni walt ID = [id number] for CAMF IELD, CRYSTAL POCT-GLUCOSE [id number] 21:06:00 Test Item Value Reference Range Interpretation Comments POC-GLUCOSE METER 139 mg/dL 70-110 H : TESTED A T [facility] (BEAKER) (test code CAMBRIDG E BLDG A, = 1538) [place] [address] 0: Detective Bowling Alley/Techni walt ID = [id number] for ZENOBIA BE POCT-GLUCOSE [id number] 16:51:00 Test Item Value Reference Range Interpretation Comments POC-GLUCOSE METER 128 mg/dL 70-110 H : TESTED A T [facility] (BEAKER) (test code CAMBRIDG E BLDG A, = 1538) [place] [address] 0: Detective Bowling Alley/Techni walt ID = [id number] for KANDIS LUO POCT-GLUCOSE [id number] 11:58:00 Test Item Value Reference Range Interpretation Comments POC-GLUCOSE METER 133 mg/dL 70-110 H : TESTED A T [facility] (BEAKER) (test code CAMBRIDG E BLDG A, = 1538) [place] [address] 0: Detective Bowling Alley/Techni walt ID = [id number] for FADUMO CAMPBELL POCT-GLUCOSE [id number] 06:33:00 Test Item Value Reference Range Interpretation Comments POC-GLUCOSE METER 102 mg/dL 70-110 : TESTED A T [facility] (BEAKER) (test code CAMBRIDG E BLDG A, = 1538) [place] [address] 0: Detective Bowling Alley/Techni walt ID = [id number] for ZENOBIA BE Basic Metabolic [id number] 04:59:00 Test Item Value Reference Range Interpretation Comments Sodium (test code = 138 meq/L 159-688 9365-2) Potassium (test code = 3.6 meq/L 3.5-5.1 2823-3) Chloride (test code = 107 meq/L 98-107 5-0) CO2 (test code = 29 meq/L -29 2027-9) BUN (test code = 15 mg/dL 7- 3094-0) Creatinine (test code = 0.85 mg/dL 0.57-1.25 2160-0) Glucose (test code = 116 mg/dL 70-105 H 2345-7) Calcium (test code = 8.3 mg/dL 8.4-10.2 L 07906-7) EGFR (test code = 87 mL/min/1.73 [place] [address]-0) NOT ACCURATE CREATININE CLEARANCE IN PREDICTING GLOMERULAR FILTRATION RATE . ESTIMATED GFR I S NOT APPLICABLE FOR DIALYSIS PATIEN TS. Lab Interpretation Abnormal (test code = 53832-2) [facility] METABOLIC [id number] 04:59:00 Test Item Value Reference Range Interpretation Comments SODIUM (BEAKER) 138 meq/L 136-145 (test code = 381) POTASSIUM (BEAKER) 3.6 meq/L 3.5-5.1 (test code = 379) CHLORIDE (BEAKER) 107 meq/L 98-107 (test code = 382) CO2 (BEAKER) (test 29 meq/L 22-29 code = 355) BLOOD UREA NITROGEN 15 mg/dL 7-21 (BEAKER) (test code = 354) CREATININE (BEAKER) 0.85 mg/dL 0.57-1.25 (test code = 358) GLUCOSE RANDOM 116 mg/dL 70-105 H (BEAKER) (test code = 652) CALCIUM (BEAKER) 8.3 mg/dL 8.4-10.2 L (test code = 697) EGFR (BEAKER) (test 87 mL/min/1.73 ESTIMA ALEX GFR IS code = 1092) sq m NOT ACCURATE CREATININE CLEARANCE IN PREDICTING GLOMERULAR FILTRATION RATE . ESTIMATED GFR I S NOT APPLICABLE FOR DIALYSIS PATIEN TS. POCT-GLUCOSE [id number] 20:55:00 Test Item Value Reference Range Interpretation Comments POC-GLUCOSE METER 134 mg/dL 70-110 H : TESTED A T [facility] (BEAKER) (test code CAMBRIDG E BLDG A, = 1538) [place] [address] 0: Detective Bowling Alley/Techni walt ID = [id number] for CAMF IELD, CRYSTAL POCT-GLUCOSE [id number] 16:44:00 Test Item Value Reference Range Interpretation Comments POC-GLUCOSE METER 137 mg/dL 70-110 H : TESTED A T [facility] (BEAKER) (test code CAMBRIDG E BLDG A, = 1538) [place] [address] 0: Detective Bowling Alley/Techni walt ID = [id number] for ORIJOLA-SABADO, THORNE POCT-GLUCOSE [id number] 11:49:00 Test Item Value Reference Range Interpretation Comments POC-GLUCOSE METER 102 mg/dL 70-110 : TESTED A T [facility] (BEAKER) (test code CAMBRIDG E BLDG A, = 1538) [place] [address] 0: Detective Bowling Alley/Techni walt ID = [id number] for ADELE CAMPBELLMA POCT-GLUCOSE [id number] 06:35:00 Test Item Value Reference Range Interpretation Comments POC-GLUCOSE METER 140 mg/dL 70-110 H : TESTED A T [facility] (BEAKER) (test code CAMBRIDG E BLDG A, = 1538) [place] [address] 0: Detective Bowling Alley/Techni walt ID = [id number] for CAMF IELD, CRYSTAL POCT-GLUCOSE [id number] 21:02:00 Test Item Value Reference Range Interpretation Comments POC-GLUCOSE METER 132 mg/dL 70-110 H : TESTED A T [facility] (BEAKER) (test code CAMBRIDG E BLDG A, = 1538) [place] [address] 0: Detective Bowling Alley/Techni walt ID = [id number] for CAMF IELD, CRYSTAL POCT-GLUCOSE [id number] 16:57:00 Test Item Value Reference Range Interpretation Comments POC-GLUCOSE METER 119 mg/dL 70-110 H : TESTED A T [facility] (BEAKER) (test code CAMBRIDG E BLDG A, = 1538) [place] [address] 0: Detective Bowling Alley/Techni walt ID = [id number] for ONWU KA, AMAUCHE POCT-GLUCOSE [id number] 12:14:00 Test Item Value Reference Range Interpretation Comments POC-GLUCOSE METER 98 mg/dL 70-110 : TESTED A T [facility] (BEAKER) (test code = CAMBRI DGE BLDG A, 1538) [place] [address] 0: Detective Bowling Alley/Techni walt ID = [id number] for ONWU KA, AMAUCHE Vitamin B12 and [id number] 07:28:00 Test Item Value Reference Range Interpretation Comments Vitamin B12 (test code 368 pg/mL 211-911 = 2132-9) Folate (test code = 10.78 ng/mL See_Comment [Automa alex 2284-8) message] The sy stem which generated this result transmitted reference range : >=5.40. The reference range was not used to interpret this result as normal/abnormal . Lab Interpretation Normal (test code = 50284-5) [facility] [id number] 07:28:00 Test Item Value Reference Range Interpretation Comments VITAMIN B12 368 pg/mL 211-911 (BEAKER) (test code = 774) FOLATE (BEAKER) 10.78 ng/mL See_Comment [Automated message] (test code = 362) The system which generated this result transmitted ref erence range: >=5.40. The reference range was not used to interpr et this result as normal/abnormal . Comprehensive metabolic [id number] 06:55:00 Test Item Value Reference Range Interpretation Comments Protein, Total (test 6.6 See_Comment [Autom ated code = 2885-2) message] The system which generated this result transmitted reference range : 6.0 - 8.3 gm/dL . The reference r fay was not used to interpret this result as normal/abnormal . Albumin (test code = 4.1 g/dL 3.5-5 66295-1) Alkaline Phosphatase 82 U/L 40-150 (test code = 6768-6) Total Bilirubin (test 0.6 mg/dL 0.2-1.2 code = 1974-2) Sodium (test code = 137 meq/L 929-880 0888-2) Potassium (test code = 3.7 meq/L 3.5-5.1 2823-3) Chloride (test code = 106 meq/L 98-107 5-0) CO2 (test code = 27 meq/L 22-29 2027-9) BUN (test code = 21 mg/dL 7-21 3094-0) Creatinine (test code = 0.91 mg/dL 0.57-1.25 2160-0) Glucose (test code = 114 mg/dL 70-105 H 2345-7) Calcium (test code = 8.6 mg/dL 8.4-10.2 96062-9) AST (test code = 24 U/L 5-34 1920-8) ALT (test code = 19 U/L 6-55 1742-6) EGFR (test code = 80 mL/min/1.[place] [address]-8) NOT ACCURATE CREATININE CLEARANCE IN PREDICTING GLOMERULAR FILTRATION RATE . ESTIMATED GFR I S NOT APPLICABLE FOR DIALYSIS PATIEN TS. Lab Interpretation Abnormal (test code = 28190-5) [id number] Test Item Value Reference Range Interpretation Comments Phosphorus (test code = 4.0 mg/dL 2.3-4.7 Spec imen slightly 2777-1) hemolyzed Lab Interpretation (test Normal code = 12039-4) [facility] [id number] 06:55:00 Test Item Value Reference Range Interpretation Comments TOTAL PROTEIN 6.6 gm/dL 6.0-8.3 (BEAKER) (test code = 770) ALBUMIN (BEAKER) 4.1 g/dL 3.5-5.0 (test code = 1145) ALKALINE PHOSPHATASE 82 U/L 40-150 (BEAKER) (test code = 346) BILIRUBIN TOTAL 0.6 mg/dL 0.2-1.2 (BEAKER) (test code = 377) SODIUM (BEAKER) (test 137 meq/L 136-145 code = 381) POTASSIUM (BEAKER) 3.7 meq/L 3.5-5.1 (test code = 379) CHLORIDE (BEAKER) 106 meq/L 98-107 (test code = 382) CO2 (BEAKER) (test 27 meq/L 22-29 code = 355) BLOOD UREA NITROGEN 21 mg/dL 7-21 (BEAKER) (test code = 354) CREATININE (BEAKER) 0.91 mg/dL 0.57-1.25 (test code = 358) GLUCOSE RANDOM 114 mg/dL 70-105 H (BEAKER) (test code = 652) CALCIUM (BEAKER) 8.6 mg/dL 8.4-10.2 (test code = 697) AST (SGOT) (BEAKER) 24 U/L 5-34 (test code = 353) ALT (SGPT) (BEAKER) 19 U/L 6-55 (test code = 347) EGFR (BEAKER) (test 80 mL/min/1.73 ESTIMA ALEX GFR IS code = 1092) sq m NOT ACCURATE CREATININE CLEARANCE IN PREDICTING GLOMERULAR FILTRATION RATE . ESTIMATED GFR I S NOT APPLICABLE FOR DIALYSIS PATIEN TS. [id number] 06:55:00 Test Item Value Reference Range Interpretation Comments PHOSPHORUS (BEAKER) 4.0 mg/dL 2.3-4.7 Specimen slightly (test code = 604) hemolyzed POCT-GLUCOSE [id number] 06:42:00 Test Item Value Reference Range Interpretation Comments POC-GLUCOSE METER 124 mg/dL 70-110 H : TESTED A T [facility] (BEAKER) (test code CAMBASYA E BLDG A, = 1538) [place] [address] 0: Detective Bowling Alley/Techni walt ID = [id number] for CORINA RAMESHO (V), CELSO CBC with platelet count + automated [id number] 06:37:00 Test Item Value Reference Range Interpretation Comments WBC (test code = 6690-2) 7.0 See_Comment [A utomated message] The system [employer] generated this result transmitted ref erence range: 3.5 - 10 .5 K/L. The refe rence range was not u sed to interpret this result as normal/abnor mal. RBC (test code = 789-8) 4.37 See_Comment L [Au tomated message] The system [employer] generated this result transmitted ref erence range: 4.63 - 6 .08 M/L. The refe rence range was not u sed to interpret this result as normal/abnor mal. MCHC (test code = 786-4) 33.3 See_Comment L [A utomated message] The system [employer] generated this result transmitted ref erence range: 32.3 - 3 6.5 GM/DL. The refe rence range was not u sed to interpret this result as normal/abnor mal. Hematocrit (test code = 39.9 % 40.1-51 L 4544-3) MCV (test code = 787-2) 91.3 fL 79-92.2 MCH (test code = 785-6) 30.4 pg 25.7-32.2 RDW (test code = 788-0) 13.8 % 11.6-14.4 Platelets (test code = 173 See_Comment [Aut omated message] 257-3) The system [employer] generated this result transmitted ref erence range: 150 - 45 0 K/CU MM. The referen ce range was not u sed to interpret this result as normal/abnor mal. MPV (test code = 11.0 fL 9.4-12.4 51578-2) % Neutros (test code = 56 % 429) % Lymphs (test code = 26 % 430) % Monos (test code = 9 % 431) % Eos (test code = 432) 8 % % Baso (test code = 437) 0 % # Neutros (test code = 3.96 See_Comment [Aut omated message] 670) The system [employer] generated this result transmitted ref erence range: 1.78 - 5 .38 K/L. The refe rence range was not u sed to interpret this result as normal/abnor mal. # Lymphs (test code = 1.83 See_Comment [Auto mated message] 414) The system [employer] generated this result transmitted ref erence range: 1.32 - 3 .57 K/L. The refe rence range was not u sed to interpret this result as normal/abnor mal. # Monos (test code = 0.63 See_Comment [Autom ated message] 415) The system [employer] generated this result transmitted ref erence range: 0.30 - 0 .82 K/L. The refe rence range was not u sed to interpret this result as normal/abnor mal. # Eos (test code = 416) 0.57 See_Comment H [Au tomated message] The system [employer] generated this result transmitted ref erence range: 0.04 - 0 .54 K/L. The refe rence range was not u sed to interpret this result as normal/abnor mal. # Baso (test code = 417) 0.03 See_Comment [A utomated message] The system [employer] generated this result transmitted ref erence range: 0.01 - 0 .08 K/L. The refe rence range was not u sed to interpret this result as normal/abnor mal. Immature 0 % 0-1 Granulocytes-Relative (test code = 2801) Lab Interpretation (test Abnormal code = 26873-4) [facility] W/PLT COUNT & AUTO [id number] 06:37:00 Test Item Value Reference Range Interpretation Comments WHITE BLOOD CELL COUNT (BEAKER) 7.0 K/ L 3.5-10.5 (test code = 775) RED BLOOD CELL COUNT (BEAKER) 4.37 M/ L 4.63-6.08 L (test code = 761) HEMOGLOBIN (BEAKER) (test code = 13.3 GM/DL 13.7-17.5 L 410) HEMATOCRIT (BEAKER) (test code = 39.9 % 40.1-51.0 L 411) MEAN CORPUSCULAR VOLUME (BEAKER) 91.3 fL 79.0-92.2 (test code = 753) MEAN CORPUSCULAR HEMOGLOBIN 30.4 pg 25.7-32.2 (BEAKER) (test code = 751) MEAN CORPUSCULAR HEMOGLOBIN CONC 33.3 GM/DL 32.3-36.5 (BEAKER) (test code = 752) RED CELL DISTRIBUTION WIDTH 13.8 % 11.6-14.4 (BEAKER) (test code = 412) PLATELET COUNT (BEAKER) (test 173 K/CU MM 150-450 code = 756) MEAN PLATELET VOLUME (BEAKER) 11.0 fL 9.4-12.4 (test code = 754) NEUTROPHILS RELATIVE PERCENT 56 % (BEAKER) (test code = 429) LYMPHOCYTES RELATIVE PERCENT 26 % (BEAKER) (test code = 430) MONOCYTES RELATIVE PERCENT 9 % (BEAKER) (test code = 431) EOSINOPHILS RELATIVE PERCENT 8 % (BEAKER) (test code = 432) BASOPHILS RELATIVE PERCENT 0 % (BEAKER) (test code = 437) NEUTROPHILS ABSOLUTE COUNT 3.96 K/ L 1.78-5.38 (BEAKER) (test code = 670) LYMPHOCYTES ABSOLUTE COUNT 1.83 K/ L 1.32-3.57 (BEAKER) (test code = 414) MONOCYTES ABSOLUTE COUNT (BEAKER) 0.63 K/ L 0.30-0.82 (test code = 415) EOSINOPHILS ABSOLUTE COUNT 0.57 K/ L 0.04-0.54 H (BEAKER) (test code = 416) BASOPHILS ABSOLUTE COUNT (BEAKER) 0.03 K/ L 0.01-0.08 (test code = 417) IMMATURE GRANULOCYTES-RELATIVE 0 % 0-1 PERCENT (BEAKER) (test code = 2801) POCT-GLUCOSE [id number] 21:15:00 Test Item Value Reference Range Interpretation Comments POC-GLUCOSE METER 149 mg/dL 70-110 H : TESTED A T [facility] (BEAKER) (test code CAMBRIDG E BLDG A, = 1538) [place] [address] 0: Detective Bowling Alley/Techni walt ID = [id number] for MYKELN ANDO (V), CELSO POCT-GLUCOSE [id number] 17:17:00 Test Item Value Reference Range Interpretation Comments POC-GLUCOSE METER 143 mg/dL 70-110 H : TESTED A T [facility] (BEAKER) (test code CAMBRIDG E BLDG A, = 1538) [place] [address] 0: Detective Bowling Alley/Techni walt ID = [id number] for XAVI FERNANDO CHIOMA [id number] 07:44:00 Test Item Value Reference Range Interpretation Comments Magnesium (test code = 2.1 mg/dL 1.6-2.6 16288-8) SUSHILA (test code = SUSHILA) Detective Bowling Alley ID - PIAYA L Lab Interpretation (test Normal code = 77355-6) [facility] [id number] 07:44:00 Test Item Value Reference Range Interpretation Comments TOTAL PROTEIN 7.0 gm/dL 6.0-8.3 (BEAKER) (test code = 770) ALBUMIN (BEAKER) 3.5 g/dL 3.5-5.0 (test code = 1145) ALKALINE PHOSPHATASE 86 U/L 40-150 (BEAKER) (test code = 346) BILIRUBIN TOTAL 0.9 mg/dL 0.2-1.2 (BEAKER) (test code = 377) SODIUM (BEAKER) (test 136 meq/L 136-145 code = 381) POTASSIUM (BEAKER) 3.7 meq/L 3.5-5.1 (test code = 379) CHLORIDE (BEAKER) 103 meq/L 98-107 (test code = 382) CO2 (BEAKER) (test 23 meq/L 22-29 code = 355) BLOOD UREA NITROGEN 19 mg/dL 7-21 (BEAKER) (test code = 354) CREATININE (BEAKER) 0.93 mg/dL 0.57-1.25 (test code = 358) GLUCOSE RANDOM 93 mg/dL 70-105 (BEAKER) (test code = 652) CALCIUM (BEAKER) 8.6 mg/dL 8.4-10.2 (test code = 697) AST (SGOT) (BEAKER) 22 U/L 5-34 (test code = 353) ALT (SGPT) (BEAKER) 19 U/L 6-55 (test code = 347) EGFR (BEAKER) (test 78 mL/min/1.73 ESTIMA ALEX GFR IS code = 1092) sq m NOT ACCURATE CREATININE CLEARANCE IN PREDICTING GLOMERULAR FILTRATION RATE . ESTIMATED GFR I S NOT APPLICABLE FOR DIALYSIS PATIEN TS. Detective Bowling Alley ID - HEATHER [id number] 07:44:00 Test Item Value Reference Range Interpretation Comments MAGNESIUM (BEAKER) (test code = 2.1 mg/dL 1.6-2.6 627) Detective Bowling Alley ID - HEATHER [id number] 07:44:00 Test Item Value Reference Range Interpretation Comments PHOSPHORUS (BEAKER) (test code = 3.2 mg/dL 2.3-4.7 604) Detective Bowling Alley ID - HEATHER LCBC W/PLT COUNT & AUTO [id number] 07:00:00 Test Item Value Reference Range Interpretation Comments WHITE BLOOD CELL COUNT (BEAKER) 7.2 K/ L 3.5-10.5 (test code = 775) RED BLOOD CELL COUNT (BEAKER) 4.53 M/ L 4.63-6.08 L (test code = 761) HEMOGLOBIN (BEAKER) (test code = 13.5 GM/DL 13.7-17.5 L 410) HEMATOCRIT (BEAKER) (test code = 41.5 % 40.1-51.0 411) MEAN CORPUSCULAR VOLUME (BEAKER) 91.6 fL 79.0-92.2 (test code = 753) MEAN CORPUSCULAR HEMOGLOBIN 29.8 pg 25.7-32.2 (BEAKER) (test code = 751) MEAN CORPUSCULAR HEMOGLOBIN CONC 32.5 GM/DL 32.3-36.5 (BEAKER) (test code = 752) RED CELL DISTRIBUTION WIDTH 14.6 % 11.6-14.4 H (BEAKER) (test code = 412) PLATELET COUNT (BEAKER) (test 155 K/CU MM 150-450 code = 756) MEAN PLATELET VOLUME (BEAKER) 10.8 fL 9.4-12.4 (test code = 754) NUCLEATED RED BLOOD CELLS 0 /100 WBC 0-0 (BEAKER) (test code = 413) NEUTROPHILS RELATIVE PERCENT 58 % (BEAKER) (test code = 429) LYMPHOCYTES RELATIVE PERCENT 25 % (BEAKER) (test code = 430) MONOCYTES RELATIVE PERCENT 12 % (BEAKER) (test code = 431) EOSINOPHILS RELATIVE PERCENT 4 % (BEAKER) (test code = 432) BASOPHILS RELATIVE PERCENT 1 % (BEAKER) (test code = 437) NEUTROPHILS ABSOLUTE COUNT 4.18 K/ L 1.78-5.38 (BEAKER) (test code = 670) LYMPHOCYTES ABSOLUTE COUNT 1.77 K/ L 1.32-3.57 (BEAKER) (test code = 414) MONOCYTES ABSOLUTE COUNT (BEAKER) 0.88 K/ L 0.30-0.82 H (test code = 415) EOSINOPHILS ABSOLUTE COUNT 0.32 K/ L 0.04-0.54 (BEAKER) (test code = 416) BASOPHILS ABSOLUTE COUNT (BEAKER) 0.06 K/ L 0.01-0.08 (test code = 417) IMMATURE GRANULOCYTES-RELATIVE 0 % 0-1 PERCENT (BEAKER) (test code = 2801) SARS-COV2/RT-PCR ([facility])2020-04-21 00:16:00 Test Item Value Reference Range Interpretation Comments SARS-COV2/RT-PCR (test Negative Not Detected, Negative, code = [id number]) See external report for linked test SARS-COV-2 PERFORMING [facility] (test code = 8122818) Negative result for this test determines that SARS-CoV-2 RNA was not present in the specimen above the Limit of Detection (LOD). However, Negative results do not preclude SARS-CoV-2 infection and should not be used as the sole basis for treatment or patient management decisions. Negative results mustbe combined with clinical observations, patient history, and epidemiological information. A false negative result may occur if a specimen is improperly collected, transported or handled. A false negative result should be considered if patient's recent exposures or clinical presentation indicate that COVID-19 (SARS-CoV-2) is likely and diagnostic tests for other causes of illness are negative. Re-testing should be considered in cases of suspected false negatives.The limit of detection for this assay is 800 copies/mL.This SARS CoV-2 test is a real-time RT-PCR test intended for the qualitative detection of nucleic acid from SARS-CoV-2 in a nasopharyngeal swab specimen collected from individuals susp ected of COVID-19 by their healthcare provider.This test has not been Food and Drug Administration (FDA) cleared or approved. This is a modified version of an approved Emergency Use Authorization (EUA) and is in the process of review by the FDA. Once authorized by the FDA, the issued EUA will be effective until the declaration that circumstances exist justifying the authorization of the emergency use of in vitro diagnostic tests for detection and/or diagnosis of COVID-19 is terminated under Section 564(b)(2) of the Act or the EUA is revoked under Section 564(g) of the Act.Fact Sheet for Healthcare Providers:https://www.Watch-Sites/sites/default/files/product/documents/Fact_Shee n_SI_Ooiirbffe_Ipus_VKIT-WeQ-9.pdfFact Sheet for Healthcare Patients:https://www.Watch-Sites/sites/default/files/product/ documents/Ogkb_Nngml_Sgnlfjji_Runz_UUDA-SsL-5.pdfPerforming Laboratory:[facility].[place], [place] [address]EL, BRAIN, WITHOUT [id number] 18:05:00Unlisted Reason for Exam - Click Yes and Enter Reason Below->NoVALLEY CHILDR[facility]: [facility] : 1940 Sex: MFINAL REPORT MR, BRAIN, WITHOUT CONTRAST INDICATION: Subdural hematoma TECHNIQUE: Multiplanar, multisequence MR imaging of the brain without intravenous contrast. COMPARISON: CT 04/20/2020 FINDINGS: Intracranial: T1 and T2 isointense acute subdural hematoma along the right convexity measures up to 7 mm in thickness, not significantly changed from prior CT. Small volume subarachnoid hemorrhage within the right sylvian fissure is also unchanged. No new site of hemorrhage. The subarachnoid hemorrhage is associated with scattered foci of restricted diffusion. No parenchymal restricted diffusion to suggest acute infarct. No significant mass effect. No hydrocephalus.Visualized intracranial flow voids are of normal course and caliber. Generalized cerebral atrophy with ex vacuo dilatation of the ventricular system proportionate to sulci. Scattered foci of T2 prolongation within the periventricular and subcortical white matter are a nonspecific finding commonly attributed to chronic small vessel ischemic disease. Sinuses: No evidence of sinusitis. Mastoids are clear. Orbits: Globes are intact. Calvarium \\T\\ scalp: Unremarkable. IMPRESSION:Unchanged acute subdural hematoma along the right convexity, and small volume subarachnoid hemorrhage layering within the right sylvian fissure, without significant mass effect. Signed: Joy Machado MDRepitzel Verified Date/Time: 04/20/2020 18:05:36 MR brain without IV contrast 2020-04-20 18:05:00Interface, External Ris In - 04/20/2020 6:07 PM CSTFINAL REPORT MR, BRAIN, WITHOUT CONTRAST INDICATION: Subdural hematoma TECHNIQUE: Multiplanar, multisequence MR imaging of thebrain without intravenous contrast. COMPARISON: CT 04/20/2020 FINDINGS: Intracranial: T1 and T2 isointense acute subdural hematoma along the right convexity measures up to 7 mm in thickness, not significantly changed from prior CT. Small volume subarachnoid hemorrhage within the right sylvian fissure is also unchanged. No new site of hemorrhage. The subarachnoid hemorrhage is associated with scattere d foci of restricted diffusion. No parenchymal restricted diffusion to suggest acute infarct. No significant mass effect. No hydrocephalus. Visualized intracranial flow voids are of normal course and caliber. Generalized cerebral atrophy with ex vacuo dilatation of the ventricular system proportionateto sulci. Scattered foci of T2 prolongation within the periventricular and subcortical white matter are a nonspecific finding commonly attributed to chronic small vessel ischemic disease. Sinuses: No evidence of sinusitis. Mastoids are clear. Orbits: Globes are intact. Calvarium \\T\\ scalp: Unremarkable . IMPRESSION:Unchanged acute subdural hematoma along the right convexity, and small volume subarachnoid hemorrhage layering within the right sylvian fissure, without significant mass effect. Signed: Joy Machado MDRepitzel Verified Date/Time: 04/20/2020 18:05:36 [facility] W/Doppler(CW/PW/Color)2020-04-20 16:11:34Ejection FractionSLEH ECHO HEARTLAB MKCKESSON CPACSInterface, External Ris In - 04/20/2020 4:11 PM CSTTransthoracic Echocardiography Report (TTE) Demographics Patient Name JEANNETTE PALOMARES Date of Study 04/20/2020 KATHY Gender Male Visit Number [id number] Race Unknown Room Number 2223 Number Date of 1940 Referring Physician Vishal Stokes Age 79 year(s) [employer] Kody Grady Interpreting Evans Anthony MD Physician Fellow Praveen Boyce MD Procedure Type of Study TTE procedure:2DECHO W DOPPLER(CW/PW/COLOR) (Routine) Indications:Valvular Disease with change in clinical symptoms .Clinical HistoryDMHLDHTNASCABG I4OXYPTQ AORTO CORONARY 07/11/18AVR RAINEY INSPIRIS 21 MM 07/21/18Contrast Medium: Definity.H eight: 69 inches Weight: 102.51 kg (226 lbs) BSA: 2.18 m^2 BMI: 33.37kg/m^2HR: 97 bpm BP: 121/87 mmHg Summary 1. The left ventricle is chamber size (by vol index) is normal. Mild concentric LV hypertrophy. All of the LV segments contract normally . LVEF by Jean's method of disk assessment is lower limits of normal (50-55%). 2. The right ventricular chamber size and systolic function are within normal limits. Unable to estimate peak systolic PA pressure; inadequate TR velocity signal. 3. 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 Peak velocity 2.42m/s, mean gradient 11.92mmHg. AoV resting dimensionless obstructive index (DOI) - 0.5. No AR. Previous Study In comparison with the prior exam 07/19/2018 the following changes are noted: No evidence of pericardial effusion. Signature -------- Findings Technical Quality: Technically difficult exam. Rhythm/BP Regular s inus rhythm during the exam. Left Ventricle Technically difficult study. The left ventricle is chamber size (by vol index) is normal (male - LVED vol - 34-74ml/m2). Mild concentric LV hypertrophy. All of the LV segments contract normally . LVEF by Jean's method of disk assessment is lower limits of normal (50-55%) . Unable to determine diastolic function due to fusion of E and A waves. Left Atrium LA appears normal based on available views. Right Ventricle The right ventricular chambersize and systolic function are within normal limits. Right Atrium G rossly the RA appears dilated. Atrial Septum Normal interatrial septum by available views. Aortic Valve A stented biologic AoV prosthesis is visualized. Peakvelocity 2.42m/s, mean gradient 11.92mmHg. AoV resting dimensionless obstructive index (DOI) - 0.5 Mitral Valve Mild MV leaflet thickening. Mild mitral annular calcification. No Doppler evaluation. Tricuspid Valve In limited views, morphologically normal valve. No Doppler exam. Unable to estimate peak systolic PA pressure;inadequate TR velocity signal. Pulmonic Valve Not imaged Aorta Aortic root size (SInus of Valsalva diameter) is normal . Pericardium Small residual pericardial effusion is present based on available views. Greatest pericardial end-diastolic size is approx. 0.8cm. No hemodynamic signs of tamponade. IVC/SVC/PA/PV/Pleural The estimated RA pressure by IVC dynamics 0-5mmHg . The inferior vena cava size is normal. Chambers/Structures Left Atrium LA Volume: 19.62 ml LA Area: 11.06 cm^2 LA Vol. Index: 9 ml/m^2 Left Ventricle LVIDd: 4.44 cm LVEDV:47.95 ml LVIDs: 3.85 cm LV Septum Diastolic: 1.33 cmLV Septum Systolic: 1.29 cm LV FS: 13.3 % LV PW Diastolic: 1.07 cm LV PW Systolic: 1.26 cm LVEDVI: 42 ml/m^2 LVEDV Jean's:91.2 ml LVESVI: 24 ml/m^2 LVESV Jean's:52.71 ml LVEF Jean's: 51.9 % LVOT Diameter: 1.91 cm Right Ventricle TAPSE: 1.33 cm Aorta Ao Root S of Mechelle.: 3.8 cm Doppler/Quantitative Measure ments Mitral Valve MV Sonny. Peak: Tissue Doppler E' Septal Velocity: 0.06 m/s A' Septal Velocity: 0.11 m/s E' Lateral Velocity: 0.14 m/s A' Lateral Velocity: 0.18 m/s Aortic Valve Peak Velocity: 2.42 m/s Mean Velocity: 1.62 m/s Peak Gradient: 23.36 mmHg Mean Gradient: 11.92 mmHg AV Area (continuity): 1.44 cm^2 AV VTI: 39 cm AV DVI: 0.5 LVOT Peak Velocity: 1.14 m/s Peak Gradient: 5.2 mmHg Mean Velocity: 0.81 m/s Mean Gradient: 2.95 mmHg LVOT Diameter: 1.91 cm LVOT VTI: 19.63 cm LVOT Area: 2.87 cm^2 LVOT SV:56.22 ml LVOT CO: 5.45 l/min LVOT CI: 2.5 l/min/m^2CPalo Verde HospitalCT BRAIN WITHOUT IV CONTRAST - [id number] 08:18:00Unlisted Reason for Exam - Click Yes and Enter Reason Below->NoKAISER PERMANENT[facility] CENTERName: [facility]ANNETTE PALOMARES : 1940 Sex: MFINAL REPORT CT BRAIN WITHOUT IV CONTRAST - PORTABLE CLINICAL IND ICATION: Subdural hemorrhage, follow-up COMPARISON: None TECHNIQUE: Noncontrast axial CT imaging of the brain and skull. DOSE REDUCTION: Dose modulation, iterative reconstruction, and/or weight-based adjustment of the mA/kV was utilized to reduce the radiation dose to as low as reasonably achievable. FINDINGS:Right periorbital contusion. No subjacent calvarial fracture. 6 mm acute right posterior frontal convexity subdural hematoma. 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 MRI with and without contrast may be obtained for confirmation. Midline structures are normally developed. Mild chronic microvascularischemic changes of the periventricular and subcortical white matter are present. No hydrocephalus. Orbits are within normal limits. No obstructive paranasal sinus disease. IMPRESSION: Right periorbital contusion. No subjacent calvarial fracture. 6 mm acute right posterior frontal convexity subdural hematoma. 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 MRI with and without contrast may be obtained for confirmation. If there is persistent clinical concern for intracranial pathology, MR examination is recommended for further characterization. Signed: Elsie Leal Verified Date/Time: 04/20/2020 08:18:01 Reading Location: [facility] B1 C013V Neuro Reading Room CT brain without IV contrast [id number] 08:18:00 Interface, External Ris In - 04/20/2020 8:[address] BRAIN WITHOUT IV CONTRAST - PORTABLE CLINICAL INDICATION: Subdural hemorrhage, follow-up COMPARISON: None TECHNIQUE: Noncontrast axial CT imaging of the brain and skull. DOSE REDUCTION: Dose modulation, iterative reconstruction, and/or weight-based adjustment of the mA/kV was utilized to reduce the radiationdose to as low as reasonably achievable. FINDINGS:Right periorbital contusion. No subjacent calvarial fracture. 6 mm acute right posterior frontal convexity subdural hematoma. 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 MRI with and without contrast may be obtained for confirmation. Midline structures are normally developed. Mild chronic microvascular ischemic changes of the periventricular and subcortical white matter are present. No hydrocephalus. Orbits are within normal limits. No obstructive paranasal sinus disease. IMPRESSION: Right periorbital contusion. No subjacent calvarial fracture. 6 mm acute right posterior frontal convexity subdural hematoma. 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 MRI with and withoutcontrast may be obtained for confirmation. If there is persistent clinical concern for intracranialpathology, MR examination is recommended for further characterization. Signed: Elsie Leal Verified Date/Time: 04/20/2020 08:18:01 Reading Location: [address] Neuro Reading Room Electr onically signed by: ELSIE LEAL MD on 04/20/2020 08:18 [facility] [id number] 07:47:00 Test Item Value Reference Range Interpretation Comments Hemoglobin A1C (test code = 4548-4) 6.7 % 4.3-6.1 H Lab Interpretation (test code = Abnormal 30268-4) [facility] [id number] 07:47:00 Test Item Value Reference Range Interpretation Comments HEMOGLOBIN A1C (BEAKER) (test code = 6.7 % 4.3-6.1 H 368) [id number] 05:43:00 Test Item Value Reference Range Interpretation Comments PTT (test code = 37.3 See_Comment H [Automated message] 51732-7) The system Razer generated this result transmitted ref erence range: 22.5 - 3 6.0 seconds. The reference range was not used to int erpret this result as normal/abnormal . Lab Interpretation (test Abnormal code = 55402-7) [id number] 05:43:00 Test Item Value Reference Range Interpretation Comments PARTIAL THROMBOPLASTIN TIME 37.3 seconds 22.5-36.0 H (BEAKER) (test code = 760) Prothrombin time/[id number] 05:42:00 Test Item Value Reference Interpretation Comments Range Protime (test code = 15.9 See_Comment H [Autom ated 5902-2) message] The system which generated this result transmitted reference range : 11.9 - 14.2 seconds. The reference range was not used to interpret this result as normal/abnormal . INR (test code = 1.31 See_Comment [Automated 6301-6) message] The system which generated this result transmitted reference range : <=5.90. The reference range was not used to interpret this result as normal/abnormal . SUSHILA (test code = Effective 08/05/2018: SUSHILA) PT Reference Range ChangeNew: 11.9-14.2 Previous: 11.7-14.7 RECOMMENDED COUMADIN/WARFARIN INR THERAPY RANGESSTANDARD DOSE: 2.0-3.0 Includes: PROPHYLAXIS for venous thrombosis, systemic embolization; TREATMENT for venous thrombosis and/or pulmonary embolus.HIGH RISK: Target INR is 2.5-3.5 for patients wiht mechanical heart valves. Lab Interpretation Abnormal (test code = 71165-3) [facility] HospitalPROTHROMBIN TIME/[id number] 05:42:00 Test Item Value Reference Range Interpretation Comments PROTIME (BEAKER) 15.9 seconds 11.9-14.2 H (test code = 759) INR (BEAKER) (test 1.31 See_Comment [Automat ed message] code = 370) The system Razer generated this result transmitted ref erence range: <=5.90. The reference range was not used to int erpret this result as normal/abnormal . Effective 08/05/2018: PT Reference Range ChangeNew: 11.9-14.2 Previous: 11.7- 14.7RECOMMENDED COUMADIN/WARFARIN INR THERAPY RANGESSTANDARD DOSE: 2.0-3.0 Includes: PROPHYLAXIS for venous thrombosis, systemic embolization; TREATMENT for venous thrombosis and/or pulmonary embolus.HIGH RISK: Target INR is2.5-3.5 for patients wiht mechanical heart valves.TSH/Free T4 If [id number] 05:39:00 Test Item Value Reference Range Interpretation Comments TSH (test code = 0.510 See_Comment [Automated 26278-0) message] The system which generated this result transmit alex reference range : 0.350 - 4.940 uIU/mL. The reference range was not used to interpret this result as normal/abnormal . SUSHILA (test code = SUSHILA) Detective Bowling Alley ID - ADELAIDE M Lab Interpretation Normal (test code = 69886-5) [facility] HospitalTSH/FREE T4 IF [id number] 05:39:00 Test Item Value Reference Range Interpretation Comments THYROID STIMULATING HORMONE 0.510 uIU/mL 0.350-4.940 (BEAKER) (test code = 772) Detective Bowling Alley ID - ADELAIDE MLipid [id number] 05:23:00 Test Item Value Reference Range Interpretation Comments Triglycerides (test 120 mg/dL code = 2571-8) Cholesterol (test code 116 mg/dL = 2093-3) HDL (test code = 31 mg/dL 2084-9) LDL Calculated (test 61 mg/dL code = 07368-5) SUSHILA (test code = SUSHILA) Triglyceride Reference Range: Low Risk <150 Borderline 150-199 High Risk 200-499 Very High Risk >=500 Cholesterol Reference Range: Low Risk <200 Borderline 200-239 High Risk >240 HDL Cholesterol Reference Range: Low Risk >=60 High Risk <40 LDL Cholesterol Reference Range: Optimal <100 Near Optimal 100-129 Borderline 130-159 High 160-189 Very High >=190 Detective Bowling Alley ID - SM [facility] HospitalCOMPREHENSIVE METABOLIC [id number] 05:23:00 Test Item Value Reference Range Interpretation Comments TOTAL PROTEIN 7.4 gm/dL 6.0-8.3 (BEAKER) (test code = 770) ALBUMIN (BEAKER) 3.7 g/dL 3.5-5.0 (test code = 1145) ALKALINE PHOSPHATASE 100 U/L 40-150 (BEAKER) (test code = 346) BILIRUBIN TOTAL 1.3 mg/dL 0.2-1.2 H (BEAKER) (test code = 377) SODIUM (BEAKER) (test 135 meq/L 136-145 L code = 381) POTASSIUM (BEAKER) 4.0 meq/L 3.5-5.1 (test code = 379) CHLORIDE (BEAKER) 103 meq/L 98-107 (test code = 382) CO2 (BEAKER) (test 24 meq/L 22-29 code = 355) BLOOD UREA NITROGEN 15 mg/dL 7-21 (BEAKER) (test code = 354) CREATININE (BEAKER) 0.95 mg/dL 0.57-1.25 (test code = 358) GLUCOSE RANDOM 128 mg/dL 70-105 H (BEAKER) (test code = 652) CALCIUM (BEAKER) 8.6 mg/dL 8.4-10.2 (test code = 697) AST (SGOT) (BEAKER) 21 U/L 5-34 (test code = 353) ALT (SGPT) (BEAKER) 18 U/L 6-55 (test code = 347) EGFR (BEAKER) (test 76 mL/min/1.73 ESTIMA ALEX GFR IS code = 1092) sq m NOT ACCURATE CREATININE CLEARANCE IN PREDICTING GLOMERULAR FILTRATION RATE . ESTIMATED GFR I S NOT APPLICABLE FOR DIALYSIS PATIEN TS. Detective Bowling Alley ID - [id number] 05:23:00 Test Item Value Reference Range Interpretation Comments MAGNESIUM (BEAKER) (test code = 1.9 mg/dL 1.6-2.6 627) Detective Bowling Alley ID - [id number] 05:23:00 Test Item Value Reference Range Interpretation Comments PHOSPHORUS (BEAKER) (test code = 2.9 mg/dL 2.3-4.7 604) Detective Bowling Alley ID - SMLIPID [id number] 05:23:00 Test Item Value Reference Range Interpretation Comments TRIGLYCERIDES (BEAKER) (test code = 120 mg/dL 540) CHOLESTEROL (BEAKER) (test code = 116 mg/dL 631) HDL CHOLESTEROL (BEAKER) (test code 31 mg/dL = 976) LDL CHOLESTEROL CALCULATED (BEAKER) 61 mg/dL (test code = 633) Triglyceride Reference Range: Low Risk <150 Borderline 150-199 High Risk 200-499 Very High Risk >=500Cholesterol Reference Range: Low Risk <200 Borderline 200-239 High Risk >240HDL Cholesterol Reference Range: Low Risk >=60 High Risk <40LDL Cholesterol Reference Range: Optimal <100 Near Optimal 100-129 Borderline 130-159 High 160-189 Very High >=190 Detective Bowling Alley ID - SMCBC W/PLT COUNT & AUTO [id number] 05:04:00 Test Item Value Reference Range Interpretation Comments WHITE BLOOD CELL COUNT (BEAKER) 8.5 K/ L 3.5-10.5 (test code = 775) RED BLOOD CELL COUNT (BEAKER) 4.69 M/ L 4.63-6.08 (test code = 761) HEMOGLOBIN (BEAKER) (test code = 13.9 GM/DL 13.7-17.5 410) HEMATOCRIT (BEAKER) (test code = 42.1 % 40.1-51.0 411) MEAN CORPUSCULAR VOLUME (BEAKER) 89.8 fL 79.0-92.2 (test code = 753) MEAN CORPUSCULAR HEMOGLOBIN 29.6 pg 25.7-32.2 (BEAKER) (test code = 751) MEAN CORPUSCULAR HEMOGLOBIN CONC 33.0 GM/DL 32.3-36.5 (BEAKER) (test code = 752) RED CELL DISTRIBUTION WIDTH 14.4 % 11.6-14.4 (BEAKER) (test code = 412) PLATELET COUNT (BEAKER) (test 170 K/CU MM 150-450 code = 756) MEAN PLATELET VOLUME (BEAKER) 10.6 fL 9.4-12.4 (test code = 754) NUCLEATED RED BLOOD CELLS 0 /100 WBC 0-0 (BEAKER) (test code = 413) NEUTROPHILS RELATIVE PERCENT 68 % (BEAKER) (test code = 429) LYMPHOCYTES RELATIVE PERCENT 19 % (BEAKER) (test code = 430) MONOCYTES RELATIVE PERCENT 11 % (BEAKER) (test code = 431) EOSINOPHILS RELATIVE PERCENT 1 % (BEAKER) (test code = 432) BASOPHILS RELATIVE PERCENT 1 % (BEAKER) (test code = 437) NEUTROPHILS ABSOLUTE COUNT 5.82 K/ L 1.78-5.38 H (BEAKER) (test code = 670) LYMPHOCYTES ABSOLUTE COUNT 1.60 K/ L 1.32-3.57 (BEAKER) (test code = 414) MONOCYTES ABSOLUTE COUNT (BEAKER) 0.91 K/ L 0.30-0.82 H (test code = 415) EOSINOPHILS ABSOLUTE COUNT 0.12 K/ L 0.04-0.54 (BEAKER) (test code = 416) BASOPHILS ABSOLUTE COUNT (BEAKER) 0.05 K/ L 0.01-0.08 (test code = 417) IMMATURE GRANULOCYTES-RELATIVE 0 % 0-1 PERCENT (BEAKER) (test code = 2801) POCT-GLUCOSE [id number] 16:36:00 Test Item Value Reference Range Interpretation Comments POC-GLUCOSE METER 108 mg/dL 70-110 TESTED AT [facility] 67[address] (BEAKER) (test code = [place]SHANNEN [place] 1538) [address] BASIC METABOLIC [id number] 08:25:00 Test Item Value Reference Range Interpretation [...] 697) EGFR (BEAKER) (test 87 mL/min/1.73 ESTIMA ALEX GFR IS code = 1092) sq m NOT ACCURATE CREATININE CLEARANCE IN PREDICTING GLOMERULAR FILTRATION RATE . ESTIMATED GFR I S NOT APPLICABLE FOR DIALYSIS PATIEN TS. CBC W/PLT COUNT & AUTO [id number] 05:31:00 Test Item Value Reference Range Interpretation [...] PERCENT (BEAKER) (test code = 2801) POCT-GLUCOSE [id number] 23:32:00 Test Item Value Reference Range Interpretation Comments POC-GLUCOSE METER 95 mg/dL 70-110 TESTED AT [place] [address] (BEAKER) (test code = [place] [address] 1538) POCT-GLUCOSE [id number] 17:21:00 Test Item Value Reference Range Interpretation Comments POC-GLUCOSE METER 104 mg/dL 70-110 TESTED AT [place] [address] (BEAKER) (test code = TABATHA Lozano [facility] 1538) [address] [id number] 10:35:00 Test Item Value Reference Range Interpretation Comments MAGNESIUM (BEAKER) (test code = 1.9 mg/dL 1.6-2.6 627) POCT-GLUCOSE [id number] 09:09:00 Test Item Value Reference Range Interpretation Comments POC-GLUCOSE METER 122 mg/dL 70-110 H TESTED AT [place] [address] ([facility]) (test code = DELROYDE Blake [facility] 1538) [address] BASIC METABOLIC [id number] 02:49:00 Test Item Value Reference Range Interpretation [...] 697) EGFR (BEAKER) (test 83 mL/min/1.73 ESTIMA ALEX GFR IS code = 1092) sq m NOT ACCURATE CREATININE CLEARANCE IN PREDICTING GLOMERULAR FILTRATION RATE . ESTIMATED GFR I S NOT APPLICABLE FOR DIALYSIS PATIEN TS. LACTIC ACID, [id number] 02:46:00 Test Item Value Reference Range Interpretation Comments LACTATE BLOOD VENOUS (2) (BEAKER) 2.0 mmol/L 0.5-2.2 (test code = 2872) LACTIC ACID, [id number] 22:31:00 Test Item Value Reference Range Interpretation Comments LACTATE BLOOD VENOUS (2) (BEAKER) 2.1 mmol/L 0.5-2.2 (test code = 2872) POCT-GLUCOSE [id number] 21:55:00 Test Item Value Reference Range Interpretation Comments POC-GLUCOSE METER 168 mg/dL 70-110 H TESTED AT [facility] 6720 (BEAKER) (test code = TABATHA [place] 1538) [address] [id number] 20:15:00 Test Item Value Reference Range Interpretation Comments MAGNESIUM (BEAKER) (test code = 1.9 mg/dL 1.6-2.6 627) BASIC METABOLIC [id number] 20:15:00 Test Item Value Reference Range Interpretation [...] 697) EGFR (BEAKER) (test 87 mL/min/1.73 ESTIMA ALEX GFR IS code = 1092) sq m NOT ACCURATE CREATININE CLEARANCE IN PREDICTING GLOMERULAR FILTRATION RATE . ESTIMATED GFR I S NOT APPLICABLE FOR DIALYSIS PATIEN TS. CBC W/PLT COUNT & AUTO [id number] 20:14:00 Test Item Value Reference Range Interpretation [...] (BEAKER) (test code = 2801) POCT-LACTIC ACID, [id number] 19:45:00 Test Item Value Reference Range Interpretation Comments POC-LACTIC ACID, 2.4 mmol/L 0.9-1.7 H TESTED AT [facility] 67[address] VENOUS (BEAKER) (test TABATHA [place] code = 2807) [address] POCT-GLUCOSE [id number] 19:25:00 Test Item Value Reference Range Interpretation Comments POC-GLUCOSE METER 204 mg/dL 70-110 H TESTED AT [facility] [address] ([facility]) (test code = TABATHA Lozano [place] 1538) [address] POCT-GLUCOSE [id number] 17:24:00 Test Item Value Reference Range Interpretation Comments POC-GLUCOSE METER 149 mg/dL 70-110 H TESTED AT [facility] 67[address] ([facility]) (test code = TABATHA Lozano [place] 1538) [address] RAD, CHEST, 1 VIEW, NON [id number] 12:01:00Reason for exam:- >dyspneaShould this be performed at the bedside?->YesFINAL REPORT CLINICAL HISTORY: dyspnea TECHNIQUE: 1 view of the chest. COMPAR ZEUS: 07/25/2018 IMPRESSION: Left lung base pleural-parenchymal opacity is unchanged. The right lung remains relatively well-aerated. The cardiomediastinal silhouette is magnified by technique with sternotomy wires. Signed: Alan Chi MDReport Verified Date/Time: 07/27/2018 12:01:19 Reading Location: [facility] Radiology Reading Room TISSUE [id number] 11:59:00Surgical Pathology Report Case: [id number] Authorizing Provider: Shine Talavera, Collected: 07/21/2018 1022 OrderingLocation: [facility] Received: 07/21/2018 1159 PERIOPERATIVE SERVICES Pathologist: Davion Mallory MD Specimen: Aortic Valve HEART, AORTIC VALVE,VALVULECTOMY:LEAFLETS WITH SEVERE NODULAR CALCIFIC ATHEROSCLEROTIC THICKENING Signing Pathologist Direct Phone Line: [phone] signed by Davion Mallory MD on 07/27/2018 at 11:59 A [id number]; 32938Cgjposospebueg disease disease, aortic valve stenosis, etiology of [...] representatively in a single cassette following decalcification. [id number] 11:30:00 Test Item Value Reference Range Interpretation Comments MAGNESIUM (BEAKER) (test code = 1.7 mg/dL 1.6-2.6 627) POCT-GLUCOSE [id number] 09:47:00 Test Item Value Reference Range Interpretation Comments POC-GLUCOSE METER 114 mg/dL 70-110 H TESTED AT [place] [address] ([facility] (test code = [facility] [place] 1538) [address] BASIC METABOLIC [id number] 05:37:00 Test Item Value Reference Range Interpretation [...] NOT APPLICABLE FOR DIALYSIS PATIEN TS. POCT-GLUCOSE [id number] 21:01:00 Test Item Value Reference Range Interpretation Comments POC-GLUCOSE METER 136 mg/dL 70-110 H TESTED AT [facility] 6720 (BEAKER) (test code = [facility] [place] 1538) [address] POCT-GLUCOSE [id number] 15:47:00 Test Item Value Reference Range Interpretation Comments POC-GLUCOSE METER 121 mg/dL 70-110 H TESTED AT [place] [address] ([facility] (test code = [facility] 1538) [address] POCT-GLUCOSE [id number] 09:34:00 Test Item Value Reference Range Interpretation Comments POC-GLUCOSE METER 95 mg/dL 70-110 TESTED AT [place] [address] ([facility] (test code = [facility] [address] 1538) BASIC METABOLIC [id number] 07:28:00 Test Item Value Reference Range Interpretation [...] NOT APPLICABLE FOR DIALYSIS PATIEN TS. POCT-GLUCOSE [id number] 22:08:00 Test Item Value Reference Range Interpretation Comments POC-GLUCOSE METER 149 mg/dL 70-110 H TESTED AT [place] [address] ([facility]) (test code = [facility] 1538) [address] POCT-GLUCOSE [id number] 15:46:00 Test Item Value Reference Range Interpretation Comments POC-GLUCOSE METER 95 mg/dL 70-110 TESTED AT [place] [address] ([facility]) (test code = [facility] [address] 1538) B-TYPE NATRIURETIC FACTOR (BNP)2018-07-25 11:55:00 Test Item Value Reference Range Interpretation Comments B-TYPE NATRIURETIC PEPTIDE (BEAKER) 301 pg/mL 0-100 H (test code = 700) RAD, CHEST, 1 VIEW, NON [id number] 11:29:00Reason for exam:->shortness of breathShould this be performed at the bedside?->YesFINAL REPORT Comparison: 07/24/2018 TECHNIQUE: Single view of the chest FINDINGS: Small left pleural effusion with adjacent airspace disease. Mild vascular congestion suspected elsewhere. Cardiac silhouette is enlarged. Postsurgical changes in the mediastinum noted. Signed: Aung Timmons MDReport Verified Date/Time: 07/25/2018 11:29:19 Reading Location: [address] [id number] 09:47:00 Test Item Value Reference Range Interpretation Comments MAGNESIUM (BEAKER) (test code = 1.9 mg/dL 1.6-2.6 627) BASIC METABOLIC [id number] 09:47:00 Test Item Value Reference Range Interpretation [...] NOT APPLICABLE FOR DIALYSIS PATIEN TS. POCT-GLUCOSE [id number] 08:41:00 Test Item Value Reference Range Interpretation Comments POC-GLUCOSE METER 115 mg/dL 70-110 H TESTED AT [facility] 6720 (BEAKER) (test code = TABATHA SANTOS 1538) [address] CBC W/PLT COUNT & AUTO [id number] 06:04:00 Test Item Value Reference Range Interpretation [...] (test code = 416) BASOPHILS ABSOLUTE COUNT ([facility]) 0.06 K/ L 0.01-0.08 (test code = 417) IMMATURE GRANULOCYTES-RELATIVE 1 % 0-1 PERCENT ([facility]) (test code = 2801) POCT-GLUCOSE [id number] 21:45:00 Test Item Value Reference Range Interpretation Comments POC-GLUCOSE METER 120 mg/dL 70-110 H TESTED AT [place] [address] ([facility]) (test code = TABATHA Lozano [facility] 1538) [address] POCT-GLUCOSE [id number] 18:01:00 Test Item Value Reference Range Interpretation Comments POC-GLUCOSE METER 150 mg/dL 70-110 H TESTED AT [place] [address] ([facility]) (test code = DELROYDE Blake [facility] 1538) [address] POCT-GLUCOSE [id number] 13:03:00 Test Item Value Reference Range Interpretation Comments POC-GLUCOSE METER 152 mg/dL 70-110 H TESTED AT [place] [address] ([facility]) (test code = TABATHA Lozano [facility] 1538) [address] RAD, CHEST, 1 VIEW, NON [id number] 09:45:00Reason for exam:->pleural effShould this be performed at the bedside?->YesFINAL REPORT TECHNIQUE: Frontal chest radiograph dated 07/24/2018. CLINICAL HISTORY: Pleural effusion COMPARISON STUDY: Chest radiograph dated 07/22/2018 IMPRESSION:The extreme lateral left lung base is not included in the sgqaw-do-hfly. A small left pleural effusion is suspected. Stable left lung base atelectasis. No pneumothorax. Cardiomediastinal silhouette is normal in size.No pulmonary edema. Midline sternotomy wires are intact and well aligned. Signed: Neel Hamepitzel Verified Date/Time: 07/24/2018 09:45:08 Reading Location: [facility] Radiology Reading Room POCT-GLUCOSE [id number] 08:16:00 Test Item Value Reference Range Interpretation Comments POC-GLUCOSE METER 149 mg/dL 70-110 H TESTED AT [place] [address] ([facility]) (test code = DELROYSHANNEN Blake [facility] 1538) [address] [id number] 07:48:00 Test Item Value Reference Range Interpretation Comments PHOSPHORUS (BEAKER) (test code = 1.5 mg/dL 2.3-4.7 LL 604) [id number] 07:43:00 Test Item Value Reference Range Interpretation Comments MAGNESIUM (BEAKER) (test code = 1.8 mg/dL 1.6-2.6 627) BASIC METABOLIC [id number] 07:43:00 Test Item Value Reference Range Interpretation [...] PATIEN TS. CBC W/PLT COUNT & AUTO [id number] 06:04:00 Test Item Value Reference Range Interpretation [...] PERCENT (BEAKER) (test code = 2801) POCT-GLUCOSE [id number] 21:28:00 Test Item Value Reference Range Interpretation Comments POC-GLUCOSE METER 130 mg/dL 70-110 H TESTED AT [facility] 67[facility] (BEAKER) (test code = TABATHA SANTOS 1538) [address] URINALYSIS W/ REFLEX URINE [id number] 18:20:00 Test Item Value Reference Range Interpretation [...] Moderate SOURCE(BEAKER) (test code = 2795) POCT-GLUCOSE [id number] 14:57:00 Test Item Value Reference Range Interpretation Comments POC-GLUCOSE METER 135 mg/dL 70-110 H TESTED AT [facility] 67[facility] (BEAKER) (test code = TABATHA [place] 1538) [address] B-TYPE NATRIURETIC FACTOR (BNP)2018-07-23 06:49:00 Test Item Value Reference Range Interpretation Comments B-TYPE NATRIURETIC PEPTIDE (BEAKER) 446 pg/mL 0-100 H (test code = 700) [id number] 06:09:00 Test Item Value Reference Range Interpretation Comments PHOSPHORUS (BEAKER) (test code = 2.4 mg/dL 2.3-4.7 604) [id number] 06:09:00 Test Item Value Reference Range Interpretation Comments MAGNESIUM (BEAKER) (test code = 2.0 mg/dL 1.6-2.6 627) BASIC METABOLIC [id number] 06:09:00 Test Item Value Reference Range Interpretation [...] 697) EGFR (BEAKER) (test 88 mL/min/1.73 ESTIMA ALEX GFR IS code = 1092) sq m NOT ACCURATE CREATININE CLEARANCE IN PREDICTING GLOMERULAR FILTRATION RATE . ESTIMATED GFR I S NOT APPLICABLE FOR DIALYSIS PATIEN TS. CALCIUM, [id number] 05:57:00 Test Item Value Reference Range Interpretation Comments CALCIUM IONIZED (BEAKER) (test 1.03 mmol/L 1.12-1.27 L code = 698) PH, BLOOD (BEAKER) (test code = 7.44 1810) Check serum Ionized Calcium level after 4 hours after IV Calcium replacement.CBC W/PLT COUNT & AUTO [id number] 05:46:00 Test Item Value Reference Range Interpretation [...] = 2801) RAD, CHEST, 1 VIEW, NON [id number] 00:00:00Reason for exam:->sobShould this be performed at [...] The regional osseous structures are unremarkable. Signed: Shala Woods MDReport Verified Date/Time: 07/23/2018 00:00:17 Reading Location: [facility] C013W Consult Reading Room Electronically signed by: SHALA WOODS M.D. 07/23/2018 12:00 AMPOCT-GLUCOSE METER 2018-07-22 21:49:00 Test Item Value Reference Range Interpretation Comments POC-GLUCOSE METER 133 mg/dL 70-110 H TESTED AT [facility] 6720 (BEAKER) (test code = TAB[facility] [place] 1538) [address] POCT-GLUCOSE [id number] 16:55:00 Test Item Value Reference Range Interpretation Comments POC-GLUCOSE METER 156 mg/dL 70-110 H TESTED AT [facility] 6720 (BEAKER) (test code = TABATHA Lozano [place] 1538) [address] POCT-GLUCOSE [id number] 11:33:00 Test Item Value Reference Range Interpretation Comments POC-GLUCOSE METER 164 mg/dL 70-110 H TESTED AT [facility] 6720 (BEAKER) (test code = TABATHA Lozano [place] 1538) [address] [id number] 11:29:00 Test Item Value Reference Range Interpretation Comments PARTIAL THROMBOPLASTIN TIME 47.4 seconds 22.5-36.0 H (BEAKER) (test code = 760) PLATELET [id number] 11:14:00 Test Item Value Reference Range Interpretation Comments PLATELET COUNT (BEAKER) (test 105 K/CU MM 150-450 L code = 756) BASIC METABOLIC [id number] 05:57:00 Test Item Value Reference Range Interpretation [...] S NOT APPLICABLE FOR DIALYSIS PATIEN TS. [id number] 05:56:00 Test Item Value Reference Range Interpretation Comments PHOSPHORUS (BEAKER) (test code = 3.3 mg/dL 2.3-4.7 604) [id number] 05:56:00 Test Item Value Reference Range Interpretation Comments MAGNESIUM (BEAKER) (test code = 2.0 mg/dL 1.6-2.6 627) CBC W/PLT COUNT & AUTO [id number] 05:34:00 Test Item Value Reference Range Interpretation [...] (BEAKER) (test code = 2801) OXYGEN SATURATION, [id number] 05:24:00 Test Item Value Reference Range Interpretation Comments O2 SATURATION (MEASURED) (BEAKER) 62.1 % (test code = 1455) BLOOD GAS, [id number] 05:20:00 Test Item Value Reference Range Interpretation [...] 40.0 % RAD, CHEST, 1 VIEW, NON [id number] 04:49:00Reason for exam:->s/p cardiac surgeryShould this be performed at the bedside?->YesFINAL REPORT CLINICAL INDICATION: Postop Comparison: 07/21/2018 The cardiomedi astinal contours are stable. The lung volumes are stable after extubation. Central pulmonary vascular prominence and bilateral parenchymal and left pleural opacities are similar to previous. There is no pneumothorax. Remaining support lines are stable. Signed: Kylah Ortiz MDReport Verified Date/Time: 07/22/2018 04:49:49 Reading Location: [address] Reading Room POCT- GLUCOSE [id number] 03:10:00 Test Item Value Reference Range Interpretation Comments POC-GLUCOSE METER 131 mg/dL 70-110 H TESTED AT [facility] 6720 (BEAKER) (test code = TABATHA [place] 1538) [address] LACTIC ACID, [id number] 22:27:00 Test Item Value Reference Range Interpretation Comments LACTATE BLOOD ARTERIAL (2) 2.0 mmol/L 0.5-2.2 (BEAKER) (test code = 2874) [id number] 22:25:00 Test Item Value Reference Range Interpretation Comments MAGNESIUM (BEAKER) (test code = 2.2 mg/dL 1.6-2.6 627) SODIUM NA-STAT [id number] 22:07:00 Test Item Value Reference Range Interpretation Comments SODIUM (BEAKER) (test code = 381) 138 meq/L 135-148 POTASSIUM-STAT [id number] 22:07:00 Test Item Value Reference Range Interpretation Comments POTASSIUM (BEAKER) (test code = 4.1 meq/L 3.6-5.5 379) OXYGEN SATURATION, [id number] 22:07:00 Test Item Value Reference Range Interpretation Comments O2 SATURATION (MEASURED) (BEAKER) 59.7 % (test code = 1455) BLOOD GAS, [id number] 22:07:00 Test Item Value Reference Range Interpretation [...] (test code = 1819) 40.0 % GLUCOSE-STAT [id number] 22:07:00 Test Item Value Reference Range Interpretation Comments GLUCOSE RANDOM (BEAKER) (test code 113 mg/dL 70-110 H = 652) HGB/HCT (H&H) - STAT [id number] 22:07:00 Test Item Value Reference Range Interpretation Comments HEMOGLOBIN (BEAKER) (test code = 10.9 g/dL 13.0-16.8 L 410) HEMATOCRIT (BEAKER) (test code = 32.0 % 40.0-50.0 L 411) LACTIC ACID, [id number] 20:27:00 Test Item Value Reference Range Interpretation Comments LACTATE BLOOD ARTERIAL (2) 2.1 mmol/L 0.5-2.2 (BEAKER) (test code = 2874) [id number] 20:26:00 Test Item Value Reference Range Interpretation Comments POTASSIUM (BEAKER) (test code = 4.3 meq/L 3.5-5.1 379) [id number] 20:26:00 Test Item Value Reference Range Interpretation Comments GLUCOSE RANDOM (BEAKER) (test code 148 mg/dL 70-105 H = 652) BLOOD GAS, [id number] 20:14:00 Test Item Value Reference Range Interpretation [...] (test code = 1819) 60.0 % POCT-GLUCOSE [id number] 18:45:00 Test Item Value Reference Range Interpretation Comments POC-GLUCOSE METER 136 mg/dL 70-110 H TESTED AT [facility] 6720 (BEAKER) (test code = TABATHA SANTOS 1538) [address] BLOOD GAS, [id number] 17:22:00 Test Item Value Reference Range Interpretation [...] (test code = 1819) 60.0 % POCT-GLUCOSE [id number] 16:40:00 Test Item Value Reference Range Interpretation Comments POC-GLUCOSE METER 159 mg/dL 70-110 H TESTED AT [facility] 6720 (BEAKER) (test code = TABATHA [place] 1538) [address] [id number] 13:26:00 Test Item Value Reference Range Interpretation Comments MAGNESIUM (BEAKER) 2.4 mg/dL 1.6-2.6 Specimen slightly (test code = 627) hemolyzed [id number] 13:26:00 Test Item Value Reference Range Interpretation Comments PHOSPHORUS (BEAKER) 2.4 mg/dL 2.3-4.7 Specimen slightly (test code = 604) hemolyzed BASIC METABOLIC [id number] 13:26:00 Test Item Value Reference Range Interpretation [...] 697) EGFR (BEAKER) (test 84 mL/min/1.73 ESTIMA ALEX GFR IS code = 1092) sq m NOT ACCURATE CREATININE CLEARANCE IN PREDICTING GLOMERULAR FILTRATION RATE . ESTIMATED GFR I S NOT APPLICABLE FOR DIALYSIS PATIEN TS. LACTIC ACID, [id number] 13:24:00 Test Item Value Reference Range Interpretation Comments LACTATE BLOOD 2.7 mmol/L 0.5-2.2 H Specimen sligh tly ARTERIAL (2) (BEAKER) hemoly zed (test code = 2874) [id number] 13:19:00 Test Item Value Reference Range Interpretation Comments PARTIAL THROMBOPLASTIN TIME 38.9 seconds 22.5-36.0 H (BEAKER) (test code = 760) PROTHROMBIN [id number] 13:18:00 Test Item Value Reference Range Interpretation [...] = 2801) RAD, CHEST, 1 VIEW, NON [id number] 13:14:00Reason for exam:->s/p cardiac surgeryShould this be [...] [place] Verified Date/Time: 07/21/2018 13:14:32 Reading Location: [facility] Radiology Readi Room BLOOD GAS, [id number] 13:10:00 Test Item Value Reference Range Interpretation [...] code = 1819) 60.0 % SODIUM NA-STAT [id number] 13:10:00 Test Item Value Reference Range Interpretation Comments SODIUM (BEAKER) (test code = 381) 134 meq/L 135-148 L GLUCOSE-STAT [id number] 13:10:00 Test Item Value Reference Range Interpretation Comments GLUCOSE RANDOM (BEAKER) (test code 165 mg/dL 70-110 H = 652) HGB/HCT (H&H) - STAT [id number] 13:10:00 Test Item Value Reference Range Interpretation Comments HEMOGLOBIN (BEAKER) (test code = 12.3 g/dL 13.0-16.8 L 410) HEMATOCRIT (BEAKER) (test code = 36.0 % 40.0-50.0 L 411) OXYGEN SATURATION, [id number] 13:09:00 Test Item Value Reference Range Interpretation Comments O2 SATURATION (MEASURED) (BEAKER) 70.2 % (test code = 1455) POTASSIUM-STAT [id number] 13:08:00 Test Item Value Reference Range Interpretation Comments POTASSIUM (BEAKER) (test code = 4.3 meq/L 3.6-5.5 379) [id number] 11:23:00 Test Item Value Reference Range Interpretation Comments ACTIVATED CLOTTING TIME 114 sec TEST ED AT [place] [address] (BEAKER) (test code = TABATHA Lozano [place] 441) [address] [id number] 11:23:00 Test Item Value Reference Range Interpretation Comments ACTIVATED CLOTTING TIME 719 sec TEST ED AT [place] [address] (BEAKER) (test code = TABATHA Lozano [place] 441) [address] [id number] 11:23:00 Test Item Value Reference Range Interpretation Comments ACTIVATED CLOTTING TIME 516 sec TEST ED AT [place] [address] (BEAKER) (test code = TABATHA Lozano [place] 441) [address] [id number] 11:23:00 Test Item Value Reference Range Interpretation Comments ACTIVATED CLOTTING TIME 598 sec TEST ED AT [place] [address] (BEAKER) (test code = TABATHA Lozano [place] 441) [address] BLOOD GAS, [id number] 11:21:00 Test Item Value Reference Range Interpretation [...] (test code = 1819) 100.0 % GLUCOSE-STAT [id number] 11:21:00 Test Item Value Reference Range Interpretation Comments GLUCOSE RANDOM (BEAKER) (test code 195 mg/dL 70-110 H = 652) HGB/HCT (H&H) - STAT [id number] 11:21:00 Test Item Value Reference Range Interpretation Comments HEMOGLOBIN (BEAKER) (test code = 11.3 g/dL 13.0-16.8 L 410) HEMATOCRIT (BEAKER) (test code = 33.0 % 40.0-50.0 L 411) CALCIUM, [id number] 11:20:00 Test Item Value Reference Range Interpretation Comments CALCIUM IONIZED (BEAKER) (test 1.19 mmol/L 1.12-1.27 code = 698) PH, BLOOD (BEAKER) (test code = 7.31 1810) SODIUM NA-STAT [id number] 11:18:00 Test Item Value Reference Range Interpretation Comments SODIUM (BEAKER) (test code = 381) 135 meq/L 135-148 POTASSIUM-STAT [id number] 11:18:00 Test Item Value Reference Range Interpretation Comments POTASSIUM (BEAKER) (test code = 4.4 meq/L 3.6-5.5 379) [id number] 11:14:00 Test Item Value Reference Range Interpretation Comments FIBRINOGEN LEVEL (BEAKER) (test 230 mg/dl 225-434 code = 658) [id number] 11:14:00 Test Item Value Reference Range Interpretation Comments PARTIAL THROMBOPLASTIN TIME 41.3 seconds 22.5-36.0 H (BEAKER) (test code = 760) PROTHROMBIN [id number] 11:13:00 Test Item Value Reference Range Interpretation Comments PROTIME (BEAKER) (test code = 19.8 seconds 11.7-14.7 H 759) INR (BEAKER) (test code = 370) 1.8 <=5.9 RECOMMENDED COUMADIN/WARFARIN INR THERAPY RANGESSTANDARD DOSE: 2.0 - 3.0 Includes: PROPHYLAXIS forvenous thrombosis, systemic embolization; TREATMENT for venous thrombosis and/or pulmonary embolus.HIGH RISK: Target INR is 2.5-3.5 for patients with mechanical heart valves.PLATELET [id number] 10:56:00 Test Item Value Reference Range Interpretation Comments PLATELET COUNT (BEAKER) (test code 84 K/CU MM 150-450 L = 756) BLOOD GAS, [id number] 10:44:00 Test Item Value Reference Range Interpretation [...] code = 1819) 100.0 % SODIUM NA-STAT [id number] 10:44:00 Test Item Value Reference Range Interpretation Comments SODIUM (BEAKER) (test code = 381) 134 meq/L 135-148 L GLUCOSE-STAT [id number] 10:44:00 Test Item Value Reference Range Interpretation Comments GLUCOSE RANDOM (BEAKER) (test code 232 mg/dL 70-110 H = 652) HGB/HCT (H&H) - STAT [id number] 10:44:00 Test Item Value Reference Range Interpretation Comments HEMOGLOBIN (BEAKER) (test code = 8.9 g/dL 13.0-16.8 L 410) HEMATOCRIT (BEAKER) (test code = 26.0 % 40.0-50.0 L 411) CALCIUM, [id number] 10:44:00 Test Item Value Reference Range Interpretation Comments CALCIUM IONIZED (BEAKER) (test 1.05 mmol/L 1.12-1.27 L code = 698) PH, BLOOD (BEAKER) (test code = 7.32 1810) POTASSIUM-STAT [id number] 10:43:00 Test Item Value Reference Range Interpretation Comments POTASSIUM (BEAKER) (test code = 5.3 meq/L 3.6-5.5 379) POTASSIUM-STAT [id number] 10:16:00 Test Item Value Reference Range Interpretation Comments POTASSIUM (BEAKER) (test code = 6.8 meq/L 3.6-5.5 HH 379) HGB/HCT (H&H) - STAT [id number] 10:12:00 Test Item Value Reference Range Interpretation Comments HEMOGLOBIN (BEAKER) (test code = 8.1 g/dL 13.0-16.8 L 410) HEMATOCRIT (BEAKER) (test code = 24.0 % 40.0-50.0 L 411) BLOOD GAS, [id number] 10:11:00 Test Item Value Reference Range Interpretation [...] (test code = 1819) 70.0 % GLUCOSE-STAT [id number] 10:11:00 Test Item Value Reference Range Interpretation Comments GLUCOSE RANDOM (BEAKER) (test code 236 mg/dL 70-110 H = 652) SODIUM NA-STAT [id number] 10:11:00 Test Item Value Reference Range Interpretation Comments SODIUM (BEAKER) (test code = 381) 131 meq/L 135-148 L BLOOD GAS, [id number] 09:44:00 Test Item Value Reference Range Interpretation [...] code = 1819) 70.0 % SODIUM NA-STAT [id number] 09:44:00 Test Item Value Reference Range Interpretation Comments SODIUM (BEAKER) (test code = 381) 133 meq/L 135-148 L POTASSIUM-STAT [id number] 09:44:00 Test Item Value Reference Range Interpretation Comments POTASSIUM (BEAKER) (test code = 5.9 meq/L 3.6-5.5 H 379) GLUCOSE-STAT [id number] 09:44:00 Test Item Value Reference Range Interpretation Comments GLUCOSE RANDOM (BEAKER) (test code 204 mg/dL 70-110 H = 652) HGB/HCT (H&H) - STAT [id number] 09:44:00 Test Item Value Reference Range Interpretation Comments HEMOGLOBIN (BEAKER) (test code = 8.2 g/dL 13.0-16.8 L 410) HEMATOCRIT (BEAKER) (test code = 24.0 % 40.0-50.0 L 411) SODIUM NA-STAT [id number] 09:16:00 Test Item Value Reference Range Interpretation Comments SODIUM (BEAKER) (test code = 381) 132 meq/L 135-148 L POTASSIUM-STAT [id number] 09:16:00 Test Item Value Reference Range Interpretation Comments POTASSIUM (BEAKER) (test code = 5.6 meq/L 3.6-5.5 H 379) HGB/HCT (H&H) - STAT [id number] 09:16:00 Test Item Value Reference Range Interpretation Comments HEMOGLOBIN (BEAKER) (test code = 8.1 g/dL 13.0-16.8 L 410) HEMATOCRIT (BEAKER) (test code = 24.0 % 40.0-50.0 L 411) BLOOD GAS, [id number] 09:15:00 Test Item Value Reference Range Interpretation [...] (test code = 1819) 80.0 % GLUCOSE-STAT [id number] 09:15:00 Test Item Value Reference Range Interpretation Comments GLUCOSE RANDOM (BEAKER) (test code 207 mg/dL 70-110 H = 652) [id number] 08:51:00 Test Item Value Reference Range Interpretation Comments ACTIVATED CLOTTING TIME 577 sec TEST ED AT [facility] 6720 (BEAKER) (test code = TABATHA SANTOS 441) [address] BLOOD GAS, [id number] 08:20:00 Test Item Value Reference Range Interpretation [...] (test code = 1819) 100.0 % GLUCOSE-STAT [id number] 08:20:00 Test Item Value Reference Range Interpretation Comments GLUCOSE RANDOM (BEAKER) (test code 132 mg/dL 70-110 H = 652) SODIUM NA-STAT [id number] 08:19:00 Test Item Value Reference Range Interpretation Comments SODIUM (BEAKER) (test code = 381) 138 meq/L 135-148 POTASSIUM-STAT [id number] 08:19:00 Test Item Value Reference Range Interpretation Comments POTASSIUM (BEAKER) (test code = 3.8 meq/L 3.6-5.5 379) HGB/HCT (H&H) - STAT [id number] 08:19:00 Test Item Value Reference Range Interpretation Comments HEMOGLOBIN (HALLIE) (test code = 14.2 g/dL 13.0-16.8 410) HEMATOCRIT (HALLIE) (test code = 42.0 % 40.0-50.0 411) POCT-GLUCOSE [id number] 06:27:00 Test Item Value Reference Range Interpretation Comments POC-GLUCOSE METER 130 mg/dL 70-110 H TESTED AT [facility] 6720 (HALLIE) (test code = TABATHA [place] 1538) [address] CT, CHEST, WITHOUT [id number] 17:18:00preop AVR ACB assess for calcification aortaAddendum BeginsREPORT STATUS:A Addendum: I agree with the previously described non vascular findings. Signed: Kai Hightower MDReport Verified Date/Time: 07/09/2018 17:18:52 Reading Location: [place] [address] Angio Body Reading RoomAddendum EndsFINAL REPORT CT [...] dictated regarding the non-vascular findings by the [employer] Process Operator Radiologist. Signed: Michele Lua Verified Date/Time: 07/09/2018 14:59:04 Reading Location: [facility] P047 Cardiology MRI RAD, CHEST, 2 [id number] 14:54:00Reason for exam:->pre opFINAL REPORT Chest, 2 views. Clinical History: pre op Comparison Study: None Findings: The heart and lungs are within normal limits. The aorta is tortuous. The pleural spaces are clear. No significant bony or soft tissue abnormalities are seen. Impression: No active cardiopulmonary disease. Signed: Mukesh Mcmanus Verified Date/Time: 07/09/2018 14:54:20 Reading Location: [facility] [id number] Consult Reading Room HEMOGLOBIN [id number] 14:40:00 Test Item Value Reference Range Interpretation Comments HEMOGLOBIN A1C (BEAKER) (test code = 6.4 % 4.3-6.1 H 368) BASIC METABOLIC [id number] 13:47:00 Test Item Value Reference Range Interpretation [...] 697) EGFR (BEAKER) (test 85 mL/min/1.73 ESTIMA ALEX GFR IS code = 1092) sq m NOT ACCURATE CREATININE CLEARANCE IN PREDICTING GLOMERULAR FILTRATION RATE . ESTIMATED GFR I S NOT APPLICABLE FOR DIALYSIS PATIEN TS. PROTHROMBIN [id number] 13:36:00 Test Item Value Reference Range Interpretation [...] % 0-1 PERCENT (BEAKER) (test code = 0651)
[2020-07-16] MEDS ORDERED: TETANUS & DIPHTHERIA TOX,ADULT 0.5 ML VIAL ONE (18:33)
--- NOTE | 2020-07-16 19:05 | RAD REPORT ---
EXAM DESCRIPTION: CT - Head C Spine Mpr Wo Con - 07/16/2020 6:17 pm CLINICAL HISTORY: Head and neck injury status post fall. Head and neck pain COMPARISON: April 2020 TECHNIQUE: Computed axial tomography of the head and cervical spine was obtained. Sagittal and coronal reconstruction was performed. All CT scans are performed using dose optimization technique as appropriate and may include automated exposure control or mA/KV adjustment according to patient size. FINDINGS: An intracranial bleed is not seen. Mild low-density areas within periventricular, deep sub cortical white matter likely ischemic changes secondary to small vessel disease. The ventricles are normal in caliber. An extra-axial fluid collection is not noted.Fluid within the v isualized sinuses and mastoids is not seen A cervical fracture is not visualized. No dislocation is noted. Slight anterior subluxation C7 on T1 unchanged. Spondylosis involves the cervical spine IMPRESSION: No acute intracranial abnormality is seen. A cervical fracture is not visualized. If the patient continues to have symptoms to suggest intracra nial /spinal cord pathology then MRI would be recommended
--- NOTE | 2020-07-16 19:14 | ER ---
Nurse's Notes [facility] Name: Franklin Castro Age: 80 yrs Sex: Male : 1940 Arrival Date: 07/16/2020 Time: 17:58 Bed 8 Private MD: Diagnosis: Fall on same level from slipping, tripping and stumbling;Unspecified injury of head Presentation: 07/16 18:00 Chief complaint: EMS states: Pt tripped and fell backward from standing, hit the back jl7 of his head on concrete, denies LOC, denies pain, A\T\Ox4, hx of brain bleed 3 months ago from last fall. Care prior to arrival: None. Mechanism of Injury: Fall from standing position. an unknown distance. Trauma event details: Injury occurred in the [facility], Injury occurred: at home. Injury occurred: July 16, 2020 Injury occurred at: 17:20. 18:00 Acuity: JIMY 2 jl7 18:00 Method Of Arrival: EMS: [facility] jl7 18:08 Coronavirus screen: Client denies travel out of the [place] in the last 14 days. Ebola jl7 Screen: No symptoms or risks identified at this time. Initial Sepsis Screen: Does the patient meet any 2 criteria? No. Patient's initial sepsis screen is negative. Does the patient have a suspected source of infection? No. Patient's initial sepsis screen is negative. Risk Assessment: Do you want to hurt yourself or someone else? Patient reports no desire to harm self or others. Onset of symptoms was July 16, 2020 at 17:20. Trauma Activation: Alert Physician: ED Physician; Name: Riaz; Notified At: 17:45; Arrived At: 17:45 Physician: General Surgeon; Name: ; Notified At: 17:45; Arrived At: Physician: Radiology; Name: Trinidad; Notified At: 17:45; Arrived At: 17:48 Physician: Respiratory; Name: ; Notified At: 17:45; Arrived At: Physician: Lab; Name: ; Notified At: 17:45; Arrived At: Historical: - Allergies: 18:12 No Known Allergies; jl7 - Home Meds: 18:12 levothyroxine 125 mcg tab 1 tab once daily [Active]; metformin 500 mg Oral Tb24 1 tab jl7 once daily [Active]; duloxetine 20 mg Oral cpDR 1 cap daily [Active]; amlodipine 5 mg tab 1 tab once daily [Active]; memantine 10 mg oral tab 1 tab 2 times per day [Active]; metoprolol tartrate 25 mg oral tab 1 tab 2 times per day [Active]; aspirin 81 mg Oral TbEC 1 tab once daily [Active]; atorvastatin 20 mg Oral tab 1 tab once daily [Active]; - PMHx: 18:12 Dementia; Diabetes - NIDDM; Hypertension; Hypothyroidism; throat cancer; jl7 19:10 Subdural frontal bleed; sv - PSHx: 18:12 Valve replacement; Tonsillectomy; Hernia repair; left hip replacement; Vasectomy; jl7 - Immunization history: Last tetanus immunization: unknown. - Social history:: Smoking status: Patient denies any tobacco usage or history of. Screenin:00 Abuse screen: Denies threats or abuse. Denies injuries from another. Tuberculosis jl7 screening: No symptoms or risk factors identified. 18:00 Nutritional screening: No deficits noted. Fall Risk Fall in past 12 months (25 points). jl7 Primary Survey: 18:00 NO uncontrolled hemorrhage observed. Breathing/Chest: Respiratory pattern: regular, jl7 Respiratory effort: spontaneous, unlabored, Breath sounds: clear, bilaterally. Chest inspection: symmetrical rise and fall of the chest. Circulation: Heart tones present. Pulses: palpable right radial artery and left radial artery. Skin color: pink, Skin temperature: warm. Disability Alert. Exposure/Environment: All clothing and personal items were removed. Forensic evidence collection is not deemed to be indicated at this time. Items placed in patient belonging bag. There is no evidence of uncontrolled external bleeding. Obvious injury(ies) are noted at this time: abrasion noted to posterior scalp A warming method has been applied: A warm blanket has been provided to the patient. 18:50 Reassessment Breathing/Chest Respiratory pattern Regular Respiratory effort Spontaneous jl7 Unlabored Chest inspection Symmetrical. Secondary Survey: 18:00 HEENT: Head Other Abrasion noted to posterior scalp Face No injury/deformity Eyes: No jl7 injury or deformity noted. to bilateral eyes. Ears: clear bilaterally. Nose: clear to bilateral nares. Throat: No injury or deformity noted. is clear. Gastrointestinal: No deficits noted. : No deficits noted. Musculoskeletal: No deficits noted. Assessment: 18:00 General: Appears in no apparent distress. uncomfortable, Behavior is calm, cooperative, jl7 appropriate for age. Pain: Denies pain. Neuro: Level of Consciousness is awake, alert, obeys commands, Oriented to person, place, time, situation. Cardiovascular: Patient's skin is warm and dry. Rhythm is regular. Respiratory: Airway is patent Respiratory effort is even, unlabored, Respiratory pattern is regular, symmetrical, Denies shortness of breath. GI: No signs and/or symptoms were reported involving the gastrointestinal system. Abdomen is non-distended, Abd is soft and non tender. Derm: Skin is pink, warm \T\ dry. Injury Description: Abrasion sustained to scalp was sustained less than 30 minutes ago. 19:15 Reassessment: Patient appears in no apparent distress at this time. Patient and/or wh family updated on plan of care and expected duration. Pain level reassessed. Patient is alert, oriented x 3, equal unlabored respirations, skin warm/dry/pink. Vital Signs: 18:00 BP 170 / 115; Pulse 110; Resp 17 S; Temp 98.6(O); Pulse Ox 98% on R/A; Weight 99.79 kg jl7 (R); Height 5 ft. 9 in. (175.26 cm) (R); Pain 0/10; 18:45 BP 154 / 93; Pulse 102; Resp 18; Pulse Ox 99% on R/A; wh 19:30 BP 148 / 95; Pulse 100; Resp 18; Pulse Ox 98% ; wh 18:00 Body Mass Index 32.49 (99.79 kg, 175.26 cm) jl7 [place] Coma Score: 18:00 Eye Response: spontaneous(4). Verbal Response: oriented(5). Motor Response: obeys [facility] commands(6). Total: 15. 19:00 Eye Response: spontaneous(4). Verbal Response: oriented(5). Motor Response: obeys commands(6). Total: 15. Trauma Score (Adult): 18:00 Eye Response: spontaneous(1); Verbal Response: oriented(1); Motor Response: obeys jl7 commands(2); Systolic BP: > 89 mm Hg(4); Respiratory Rate: 10 to 29 per min(4); [place] Score: 15; Trauma Score: 12 ED Course: 17:58 Patient arrived in ED. ss 17:58 Eduardo Mello, JAMISON is PHCP. pm1 17:58 Gonzales Brian MD is Attending Physician. pm1 18:00 Julia Orellana RN is Primary Nurse. jl7 18:00 Patient has correct armband on for positive identification. Placed in gown. Bed in low jl7 position. Call light in reach. Side rails up X2. 18:00 Patient maintains SpO2 saturation greater than 95% on room air. Thermoregulation: warm jl7 blanket given to patient. 18:00 No provider procedures requiring assistance completed. Patient did not have IV access jl7 during this emergency room visit. 18:03 Triage completed. jl7 18:12 Arm band placed on right wrist. jl7 18:17 CT Head C Spine In Process Unspecified. EDMS 19:26 Primary Nurse role handed off by Julia Orellana RN mw2 19:26 Report given to Stew CACERES and Terese CACERES. 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 Exp: ld1 08/13/2021. Lot #: [id number]. } Route: IM; Site: left deltoid; 19:15 Follow up: Response: No adverse reaction jl7 Intake: 19:30 PO: 120ml (Water); Total: 120ml. Outcome: 19:13 Discharge ordered by . pm1 19:32 Discharged to home via wheelchair, with family. 19:32 Condition: stable 19:32 Discharge instructions given to patient, family, Instructed on discharge instructions, follow up and referral plans. POC Demonstrated understanding of instructions, follow-up care, POC 19:34 Patient left the ED. mw2 19:41 Patient's length of stay was not longer than 2 hours. Signatures: Dispatcher [employer] EDMS Rafaela Welsh RN RN Aleisha Rodriguez RN RN Eduardo Mello NP ENGINEERING VICE PRESIDENT pm1 Julia Orellana RN RN Stew Rendon RN RN Shmuel David mw2 Anai Jones, RN RN ld1
--- NOTE | 2020-07-16 19:14 | EDPHYS ---
Physician Documentation [facility] Name: Franklin Castro Age: 80 yrs Sex: Male : 1940 Arrival Date: 07/16/2020 Time: 17:58 Bed 8 Private MD: ED Physician Gonzales Brian HPI: 07/16 17:59 This 80 yrs old Male presents to ER via Unassigned with complaints of Fall pm1 Injury. 17:59 Details of fall: The patient fell from an upright position, almost seated position, and pm1 struck a concrete surface. Onset: The symptoms/episode began/occurred just prior to arrival. Associated injuries: The patient sustained injury to the head, contusion. The patient has experienced a previous episode, Fell forward and landed on his face about 3 months ago resulting in a subdural bleed. Was hospitalized for 7 days without any need for intervention. Patient was getting into his car and was almost seated down but he tripped on his can and fell backwards hitting his head. Denies headache, neck pain, LOC. Historical: - Allergies: 18:12 No Known Allergies; jl7 - Home Meds: 18:12 levothyroxine 125 mcg tab 1 tab once daily [Active]; metformin 500 mg Oral Tb24 1 tab jl7 once daily [Active]; duloxetine 20 mg Oral cpDR 1 cap daily [Active]; amlodipine 5 mg tab 1 tab once daily [Active]; memantine 10 mg oral tab 1 tab 2 times per day [Active]; metoprolol tartrate 25 mg oral tab 1 tab 2 times per day [Active]; aspirin 81 mg Oral TbEC 1 tab once daily [Active]; atorvastatin 20 mg Oral tab 1 tab once daily [Active]; - PMHx: 18:12 Dementia; Diabetes - NIDDM; Hypertension; Hypothyroidism; throat cancer; jl7 19:10 Subdural frontal bleed; sv - PSHx: 18:12 Valve replacement; Tonsillectomy; Hernia repair; left hip replacement; Vasectomy; jl7 - Immunization history: Last tetanus immunization: unknown. - Social history:: Smoking status: Patient denies any tobacco usage or history of. ROS: 19:10 Constitutional: Negative for fever, chills, and weight loss, Eyes: Negative for injury, pm1 pain, redness, and discharge, ENT: Negative for injury, pain, and discharge, Neck: Negative for injury, pain, and swelling, Cardiovascular: Negative for chest pain, palpitations, and edema, Respiratory: Negative for shortness of breath, cough, wheezing, and pleuritic chest pain, Abdomen/GI: Negative for abdominal pain, nausea, vomiting, diarrhea, and constipation, Back: Negative for injury and pain, : Negative for injury, bleeding, discharge, and swelling, MS/Extremity: Negative for injury and deformity, Skin: Negative for injury, rash, and discoloration, Neuro: Negative for headache, weakness, numbness, tingling, and seizure. Exam: 19:10 Constitutional: This is a well developed, well nourished patient who is awake, alert, pm1 and in no acute distress. Head/Face: Normocephalic, atraumatic. Eyes: Pupils equal round and reactive to light, extra-ocular motions intact. Lids and lashes normal. Conjunctiva and sclera are non-icteric and not injected. Cornea within normal limits. Periorbital areas with no swelling, redness, or edema. ENT: Nares patent. No nasal discharge, no septal abnormalities noted. Tympanic membranes are normal and external auditory canals are clear. Oropharynx with no redness, swelling, or masses, exudates, or evidence of obstruction, uvula midline. Mucous membranes moist. Neck: Trachea midline, no thyromegaly or masses palpated, and no cervical lymphadenopathy. Supple, full range of motion without nuchal rigidity, or vertebral point tenderness. No Meningismus. Chest/axilla: Normal chest wall appearance and motion. Nontender with no deformity. No lesions are appreciated. 19:10 Back: No spinal tenderness. No costovertebral tenderness. Full range of motion. MS/ Extremity: Pulses equal, no cyanosis. Neurovascular intact. Full, normal range of motion. 19:10 Cardiovascular: Rate: normal, Rhythm: regular, Pulses: no pulse deficits are appreciated. 19:10 Respiratory: Exam negative for acute changes, respiratory distress, shortness of breath, Breath sounds: are clear throughout. 19:10 Abdomen/GI: Inspection: obese Palpation: abdomen is soft and non-tender, in all quadrants. 19:10 Skin: Appearance: normal except for affected area, injury, abrasion(s), small abrasion noted, of the left elbow. 19:10 Neuro: Exam negative for acute changes, Orientation: is normal, Mentation: is normal, Motor: is normal, moves all fours, Sensation: is normal, no obvious gross deficits. Vital Signs: 18:00 BP 170 / 115; Pulse 110; Resp 17 S; Temp 98.6(O); Pulse Ox 98% on R/A; Weight 99.79 kg jl7 (R); Height 5 ft. 9 in. (175.26 cm) (R); Pain 0/10; 18:45 BP 154 / 93; Pulse 102; Resp 18; Pulse Ox 99% on R/A; wh 19:30 BP 148 / 95; Pulse 100; Resp 18; Pulse Ox 98% ; wh 18:00 Body Mass Index 32.49 (99.79 kg, 175.26 cm) jl7 [place] Coma Score: 18:00 Eye Response: spontaneous(4). Verbal Response: oriented(5). Motor Response: obeys jl7 commands(6). Total: 15. 19:00 Eye Response: spontaneous(4). Verbal Response: oriented(5). Motor Response: obeys wh commands(6). Total: 15. Trauma Score (Adult): 18:00 Eye Response: spontaneous(1); Verbal Response: oriented(1); Motor Response: obeys jl7 commands(2); Systolic BP: > 89 mm Hg(4); Respiratory Rate: 10 to 29 per min(4); [place] Score: 15; Trauma Score: 12 MDM: 17:58 Patient medically screened. pm1 19:11 Data reviewed: vital signs. Data interpreted: Pulse oximetry: on room air is 98 %. pm1 Interpretation: normal. Counseling: I had a detailed discussion with the patient and/or guardian regarding: the historical points, exam findings, and any diagnostic results supporting the discharge/admit diagnosis, radiology results, the need for outpatient follow up, to return to the emergency department if symptoms worsen or persist or if there are any questions or concerns that arise at home. 07/16 17:59 Order name: CT Head C Spine; Complete Time: 19:08 pm1 Administered Medications: 18:57 Drug: Tetanus-Diphtheria Toxoid Adult 0.5 ml {Public Address System Operator: [employer]. Exp: ld1 08/13/2021. Lot #: [id number]. } Route: IM; Site: left deltoid; 19:15 Follow up: Response: No adverse reaction jl7 Disposition: 07/17 09:55 Co-signature as Attending Physician, Gonzales Brian MD I agree with the assessment and sylvia plan of care. Disposition: 07/16/20 19:13 Discharged to Home. Impression: Fall on same level from slipping, tripping and stumbling, Unspecified injury of head. - Condition is Stable. - Discharge Instructions: Head Injury, Adult, Fall Prevention in the Home. - Medication Reconciliation Form, Thank You Letter, Antibiotic Education, Prescription Opioid Use form. - Follow up: Emergency Department; When: As needed; Reason: Worsening of condition. Follow up: Private Physician; When: 2 - 3 days; Reason: Recheck today's complaints, Continuance of care, Re-evaluation by your physician. - Problem is new. - Symptoms have improved. Signatures: Dispatcher [employer] EDRafaela Crawford RN RN sv Anderson, Corey, MD MD cha Marinas, Patrick, WATCH PARTS INSPECTOR WATCH PARTS INSPECTOR pm1 Julia Orellana RN RN jl7 Shmuel Felipe mw2 Anai Jones RN RN ld1 Corrections: (The following items were deleted from the chart) 07/16 19:34 19:13 07/16/2020 19:13 Discharged to Home. Impression: Fall on same level from mw2 slipping, tripping and stumbling; Unspecified injury of head. Condition is Stable. Forms are Medication Reconciliation Form, Thank You Letter, Antibiotic Education, Prescription Opioid Use. Follow up: Emergency Department; When: As needed; Reason: Worsening of condition. Follow up: Private Physician; When: 2 - 3 days; Reason: Recheck today's complaints, Continuance of care, Re-evaluation by your physician. Problem is new. Symptoms have improved. pm1
[2020-07-16 19:55] VITALS: BP 170/115; TEMP 98.6; O2SAT 98
== END 2020-07-16 19:34 | disposition home or self-care (01) ==
LOC: ER 17:51
DX: S00.01XA Abrasion of scalp, initial encounter (principal); W01.198A Fall on same level from slipping, tripping and stumbling with subsequent striking against other object, initial encounter; Y93.89 Activity, other specified; Y92.009 Unspecified place in unspecified non-institutional (private) residence as the place of occurrence of the external cause; I10 Essential (primary) hypertension; E11.9 Type 2 diabetes mellitus without complications; F03.90 Unspecified dementia, unspecified severity, without behavioral disturbance, psychotic disturbance, mood disturbance, and anxiety; E03.9 Hypothyroidism, unspecified; Z23 Encounter for immunization; Z87.820 Personal history of traumatic brain injury; Z79.82 Long term (current) use of aspirin; Z85.12 Personal history of malignant neoplasm of trachea
CPT/HCPCS: 70450; 72125; 90471; 90714; 99284; G0390

== ENCOUNTER 2021-08-31 01:21 | Inpatient (IN) | payer OTHER ==
--- OUTSIDE RECORDS SUMMARY | 2021-08-31 01:27 | XMS REPORT | Continuity of Care Document ---
:[address] [facility] t Address [facility] [address] [place] [address] Care Team Providers Name Role Phone Emmy RANDHAWA Primary Care Physician Unavailable GENA BHAT Attending Clinician Unavailable Mary CHAMPION Attending Clinician Unavailable MELANIE BLAS Attending Clinician Unavailable DAVID TALAVERA Attending Clinician Unavailable GENA BHAT Admitting Clinician Unavailable Mary CHAMPION Admitting Clinician Unavailable RORO LEPE Admitting Clinician Unavailable DAVID TALAVERA Admitting Clinician Unavailable Payers Payer Name Policy Type Policy Number Effective Date Expiration Date S екатерина [employer] MEDICARE HMO [id number] 2018 POS PPO 00:00:00 Problems This patient has no known problems. Allergies, Adverse Reactions, Alerts Allergy Allergy Status Severity Reaction(s) Onset Inactive Treating Comm ents Source Name Type Date Date Clinician NO KNOWN Allergy Active SLEH ALLERGIE S Medications This patient has no known medications. Vital Signs Vital Name Observation Time Observation Value Comments Source WEIGHT 2020-04-28 05:48:00 98.748 kg WEIGHT 2020-04-27 05:32:00 101.197 kg WEIGHT 2020-04-26 05:00:00 101.322 kg WEIGHT 2020-04-25 06:42:00 102.144 kg WEIGHT 2020-04-24 05:12:00 103.193 kg WEIGHT 2020-04-23 05:09:00 103.619 kg WEIGHT 2020-04-22 06:00:00 104.3 kg WEIGHT 2020-04-21 15:50:00 105.235 kg HEIGHT 2020-04-21 15:50:00 175.3 cm WEIGHT 2020-04-19 21:00:00 102.6 kg HEIGHT 2020-04-19 21:00:00 175.3 cm WEIGHT 2020-04-28 05:48:00 98.748 kg WEIGHT 2020-04-27 05:32:00 101.197 kg WEIGHT 2020-04-26 05:00:00 101.322 kg WEIGHT 2020-04-25 06:42:00 102.144 kg WEIGHT 2020-04-24 05:12:00 103.193 kg WEIGHT 2020-04-23 05:09:00 103.619 kg WEIGHT 2020-04-22 06:00:00 104.3 kg WEIGHT 2020-04-21 15:50:00 105.235 kg HEIGHT 2020-04-21 15:50:00 175.3 cm WEIGHT 2020-04-19 21:00:00 102.6 kg HEIGHT 2020-04-19 21:00:00 175.3 cm Procedures This patient has no known procedures. Encounters Start End Encounter Admission Attending Care Care Encounter Source Date/Time Date/Time Type Type Clinicians Facility Department ID 2020-04-21 [facility]\\T\\R [id number] SLE 15:40:00 UVNICKOLASOGLESLEY 2020-04-19 Inpatient ER PAUL CHAMPION [facility] [id number] SLE 18:35:00 STAN 2020-05-12 2020-05-12 Outpatient [facility] [id number] SLE 00:00:00 00:00:00 SHANE 2018-08-12 2018-08-12 Outpatient HUGO TALAVERA [facility] [id number] SLE 00:00:00 00:00:00 SHINE Results Test Description Test Time Test Comments Results Result Comments Source POCT-GLUCOSE METER 2020-04-28 06:37:00 Test Item Value Reference Range Interpretation Comme nts POC-GLUCOSE METER (HALLIE) 112 mg/dL 70-110 H : TESTED AT [facility] [address] [employer] (test code = 1538) [place] [address]: Insecticide Maker/Techni walt ID = [id number] for Antonina Rose POCT-GLUCOSE [id number] 17:09:00 Test Item Value Reference Range Interpretation Comments POC-GLUCOSE METER 126 mg/dL 70-110 H : TESTED A T [facility] [address] (BEAKER) (test code CAMBRIDG E BLDG A, = 1538) [place] [address] 0: Insecticide Maker/Techni walt ID = [id number] for Bisi Andujar POCT-GLUCOSE [id number] 06:49:00 Test Item Value Reference Range Interpretation Comments POC-GLUCOSE METER 92 mg/dL 70-110 : TESTED A T [facility] [address] (BEAKER) (test code = CAMBRI DGE BLDG A, 1538) [place] [address] 0: Insecticide Maker/Techni walt ID = [id number] for ETHAN HOFF SARS-COV2/RT-PCR ([facility])2020-04-27 05:38:00 Test Item Value Reference Range Interpretation Comments SARS-COV2/RT-PCR (test code Negative Not Detected, Negative, = 8399793) See external report for linked test SARS-COV-2 PERFORMING LAB [facility] (test code = 6282653) Negative results do not preclude SARS-CoV-2 infection [...] of the Act.Fact Sheet for Healthcare Pro viders:https://www.Microbion.com/Documents/Xpert%20Xpress%20SARS%20CoV-2/Fact%20Sh eets/302-3802%43SPUG-BGK-4%20HEALTHCARE%20PROVIDERS%20FACT%20SHEET.pdfFact Sheet for Healthcare Patients:https://www.Insmed.Mezzobit/Documents/Xpert%20Xpress%20SARS%20CoV-2/Fact%20Sheets/302-3801%20SARS-COV -2%20PATIENT%20FACT%20SHEET.pdfPerforming Laboratory:[facility], [place] [address]TZKY-NOSMAAC [id number] 21:25:00 Test Item Value Reference Range Interpretation Comments POC-GLUCOSE METER 104 mg/dL 70-110 : TESTED A T [facility] [address] (BEAKER) (test code CAMBRIDG E BLDG A, = 1538) [place] [address] 0: Insecticide Maker/Techni walt ID = [id number] for ETHAN HOFF POCT-GLUCOSE [id number] 17:03:00 Test Item Value Reference Range Interpretation Comments POC-GLUCOSE METER 114 mg/dL 70-110 H : TESTED A T [facility] [address] (BEAKER) (test code CAMBRIDG E BLDG A, = 1538) [place] [address] 0: Insecticide Maker/Techni walt ID = [id number] for JATIN S, SHANNON POCT-GLUCOSE [id number] 11:05:00 Test Item Value Reference Range Interpretation Comments POC-GLUCOSE METER 132 mg/dL 70-110 H : TESTED A T [facility] [address] (BEAKER) (test code CAM[place] E BLDG A, = 1538) [place] [address] 0: Insecticide Maker/Techni walt ID = [id number] for JATIN S, SHANNON POCT-GLUCOSE [id number] 06:37:00 Test Item Value Reference Range Interpretation Comments POC-GLUCOSE METER 119 mg/dL 70-110 H : TESTED A T [facility] [address] (BEAKER) (test code CAMBRIDG E BLDG A, = 1538) [place] [address] 0: Insecticide Maker/Techni walt ID = [id number] for CAMSamreen IELD, CRYSTAL POCT-GLUCOSE [id number] 20:54:00 Test Item Value Reference Range Interpretation Comments POC-GLUCOSE METER 142 mg/dL 70-110 H : TESTED A T [facility] [address] (BEAKER) (test code CAMBRIDG E BLDG A, = 1538) [place] [address] 0: Insecticide Maker/Techni walt ID = [id number] for CAMF IELD, CRYSTAL POCT-GLUCOSE [id number] 17:18:00 Test Item Value Reference Range Interpretation Comments POC-GLUCOSE METER 120 mg/dL 70-110 H : TESTED A T [facility] [address] (BEAKER) (test code CAM[place] E BLDG A, = 1538) [place] [address] 0: Insecticide Maker/Techni walt ID = [id number] for CEDRIC JAIME, NEO ELBA POCT-GLUCOSE [id number] 11:59:00 Test Item Value Reference Range Interpretation Comments POC-GLUCOSE METER 106 mg/dL 70-110 : TESTED A T [facility] [address] (BEAKER) (test code CAMBRIDG E BLDG A, = 1538) [place] [address] 0: Insecticide Maker/Techni walt ID = [id number] for CEDRIC JAIME, NEO ELBA POCT-GLUCOSE [id number] 06:29:00 Test Item Value Reference Range Interpretation Comments POC-GLUCOSE METER 113 mg/dL 70-110 H : TESTED A T [facility] [address] (BEAKER) (test code CAMBR[place] E BLDG A, = 1538) [place] [address] 0: Insecticide Maker/Techni walt ID = [id number] for CAMF IELD, CRYSTAL POCT-GLUCOSE [id number] 21:06:00 Test Item Value Reference Range Interpretation Comments POC-GLUCOSE METER 139 mg/dL 70-110 H : TESTED A T [facility] [address] (BEAKER) (test code CAMBRIDG E BLDG A, = 1538) [place] [address] 0: Insecticide Maker/Techni walt ID = [id number] for CAMF IELD, CRYSTAL POCT-GLUCOSE [id number] 16:51:00 Test Item Value Reference Range Interpretation Comments POC-GLUCOSE METER 128 mg/dL 70-110 H : TESTED A T [facility] [address] (BEAKER) (test code CAMBRIDG E BLDG A, = 1538) [place] [address] 0: Insecticide Maker/Techni walt ID = [id number] for KANDIS LUO POCT-GLUCOSE [id number] 11:58:00 Test Item Value Reference Range Interpretation Comments POC-GLUCOSE METER 133 mg/dL 70-110 H : TESTED A T [facility] [address] (BEAKER) (test code CAMBRIDG E BLDG A, = 1538) [place] [address] 0: Insecticide Maker/Techni walt ID = [id number] for FADUMO CAMPBELL POCT-GLUCOSE [id number] 06:33:00 Test Item Value Reference Range Interpretation Comments POC-GLUCOSE METER 102 mg/dL 70-110 : TESTED A T [facility] [address] (BEAKER) (test code CAMBRIDG E BLDG A, = 1538) [place] [address] 0: Insecticide Maker/Techni walt ID = [id number] for CAMF IELD, CRYSTAL BASIC METABOLIC [id number] 04:59:00 Test Item Value Reference Range Interpretation [...] NOT APPLICABLE FOR DIALYSIS PATIEN TS. POCT-GLUCOSE [id number] 20:55:00 Test Item Value Reference Range Interpretation Comments POC-GLUCOSE METER 134 mg/dL 70-110 H : TESTED A T [facility] [address] (BEAKER) (test code CAMBR[place] E BLDG A, = 1538) [place] [address] 0: Insecticide Maker/Techni walt ID = [id number] for CAMF IELD, CRYSTAL POCT-GLUCOSE [id number] 16:44:00 Test Item Value Reference Range Interpretation Comments POC-GLUCOSE METER 137 mg/dL 70-110 H : TESTED A T [facility] [address] (BEAKER) (test code CAMBRID[place] E BLDG A, = 1538) [place] [address] 0: Insecticide Maker/Techni walt ID = [id number] for ORIJOLA-SABADO, THORNE POCT-GLUCOSE [id number] 11:49:00 Test Item Value Reference Range Interpretation Comments POC-GLUCOSE METER 102 mg/dL 70-110 : TESTED A T [facility] [address] (BEAKER) (test code CAMBRIDG E BLDG A, = 1538) [place] [address] 0: Insecticide Maker/Techni walt ID = [id number] for ORIJOLA-SABADO, THORNE POCT-GLUCOSE [id number] 06:35:00 Test Item Value Reference Range Interpretation Comments POC-GLUCOSE METER 140 mg/dL 70-110 H : TESTED A T [facility] [address] (BEAKER) (test code CAMBRIDG E BLDG A, = 1538) [place] [address] 0: Insecticide Maker/Techni walt ID = [id number] for CAMF IELD, CRYSTAL POCT-GLUCOSE [id number] 21:02:00 Test Item Value Reference Range Interpretation Comments POC-GLUCOSE METER 132 mg/dL 70-110 H : TESTED A T [facility] [address] (BEAKER) (test code CAMBRIDG E BLDG A, = 1538) [place] [address] 0: Insecticide Maker/Techni walt ID = [id number] for CAMF IELD, CRYSTAL POCT-GLUCOSE [id number] 16:57:00 Test Item Value Reference Range Interpretation Comments POC-GLUCOSE METER 119 mg/dL 70-110 H : TESTED A T [facility] [address] (BEAKER) (test code CAMBRIDG E BLDG A, = 1538) [place] [address] 0: Insecticide Maker/Techni walt ID = [id number] for RADHA PHILLIPS AMAUCHE POCT-GLUCOSE [id number] 12:14:00 Test Item Value Reference Range Interpretation Comments POC-GLUCOSE METER 98 mg/dL 70-110 : TESTED A T [facility] (BEAKER) (test code = CAMBRI DGE BLDG A, 1538) [facility] [address] 0: Insecticide Maker/Techni walt ID = [id number] for MARTHA VINES VITAMIN B12 AND [id number] 07:28:00 Test Item Value Reference Range Interpretation Comments VITAMIN B12 368 pg/mL 211-911 (BEAKER) (test code = 774) FOLATE (BEAKER) 10.78 ng/mL See_Comment [Automated message] (test code = 362) The system which generated this result transmitted ref erence range: >=5.40. The reference range was not used to interpr et this result as normal/abnormal . COMPREHENSIVE METABOLIC [id number] 06:55:00 Test Item Value Reference Range Interpretation [...] 347) EGFR (BEAKER) (test 80 mL/min/1.73 ESTIMA STELLA GFR IS code = 1092) sq m NOT ACCURATE CREATININE CLEARANCE IN PREDICTING GLOMERULAR FILTRATION RATE . ESTIMATED GFR I S NOT APPLICABLE FOR DIALYSIS PATIEN TS. [id number] 06:55:00 Test Item Value Reference Range Interpretation Comments PHOSPHORUS (BEAKER) 4.0 mg/dL 2.3-4.7 Specimen slightly (test code = 604) hemolyzed POCT-GLUCOSE [id number] 06:42:00 Test Item Value Reference Range Interpretation Comments POC-GLUCOSE METER 124 mg/dL 70-110 H : TESTED A T [facility] [address] (BEAKER) (test code CAMBRIDG E BLDG A, = 1538) [place] [address]: Insecticide Maker/Techni walt ID = [id number] for CORINA RAMESHO (V), CELSO CBC W/PLT COUNT & AUTO [id number] 06:37:00 Test Item Value Reference Range Interpretation [...] PERCENT (BEAKER) (test code = 2801) POCT-GLUCOSE [id number] 21:15:00 Test Item Value Reference Range Interpretation Comments POC-GLUCOSE METER 149 mg/dL 70-110 H : TESTED A T [facility] [address] (BEAKER) (test code CAMBRIDG E BLDG A, = 1538) [place] [address] 0: Insecticide Maker/Techni walt ID = [id number] for CORINA ANDWallace (V), CELSO POCT-GLUCOSE [id number] 17:17:00 Test Item Value Reference Range Interpretation Comments POC-GLUCOSE METER 143 mg/dL 70-110 H : TESTED A T [facility] [address] (BEAKER) (test code CAMBRIDG E BLDG A, = 1538) [place] [address] 0: Insecticide Maker/Techni walt ID = [id number] for XAVI FERNANDO CHIOMA COMPREHENSIVE METABOLIC [id number] 07:44:00 Test Item Value Reference Range Interpretation [...] 347) EGFR (BEAKER) (test 78 mL/min/1.73 ESTIMA STELLA GFR IS code = 1092) sq m NOT ACCURATE CREATININE CLEARANCE IN PREDICTING GLOMERULAR FILTRATION RATE . ESTIMATED GFR I S NOT APPLICABLE FOR DIALYSIS PATIEN TS. Insecticide Maker ID - HEATHER [id number] 07:44:00 Test Item Value Reference Range Interpretation Comments MAGNESIUM (BEAKER) (test code = 2.1 mg/dL 1.6-2.6 627) Insecticide Maker ID - HEATHER [id number] 07:44:00 Test Item Value Reference Range Interpretation Comments PHOSPHORUS (BEAKER) (test code = 3.2 mg/dL 2.3-4.7 604) Insecticide Maker ID - HEATHER LCBC W/PLT COUNT & AUTO [id number] 07:00:00 Test Item Value Reference Range Interpretation [...] PERCENT (BEAKER) (test code = 2801) SARS-COV2/RT-PCR ([facility])2020-04-21 00:16:00 Test Item Value Reference Range Interpretation Comments SARS-COV2/RT-PCR (test Negative Not Detected, Negative, code = 8242688) See external report for linked test SARS-COV-2 PERFORMING LAB [facility] [place] (test code = 7916290) Negative result for this test determines that [...] 564(g) of the Act.Fact Sheet for Healthcare Providers:https://www.[employer].Mezzobit/sites/default/files/product/documents/Fact_Shee e_VP_Thjflzakn_Tuxx_SVVR-AzU-7.pdfFact Sheet for Healthcare Patients:https://www.[employer].Mezzobit/sites/default/files/product/ documents/Cwew_Ovuuc_Jksaoutm_Ppbn_BSVO-EoA-7.pdfPerforming Laboratory:[facility], [place] [address]UW, BRAIN, WITHOUT [id number] 18:05:00Unlisted Reason for Exam - Click Yes and Enter Reason Below->NoFABIOLA HOSPITALName: MARIELLE, JEANNETTE KATHY : 1940 Sex: MFINAL REPORT MR, BRAIN, [...] without significant mass effect. Signed: Joy Machado Verified Date/Time: 04/20/2020 18:05:36 CT BRAIN WITHOUT IV CONTRAST - [id number] 08:18:00Unlisted Reason for Exam - Click Yes and Enter Reason Below->NoFABIOLA HOSPITALName: JEANNETTE PALOMARES : 1940 Sex: MFINAL [...] recommended for further characterization. Signed: Elsie Leal MDReport Verified Date/Time: 04/20/2020 08:18:01 Reading Location: [facility] C013V Neuro Reading Room HEMOGLOBIN [id number] 07:47:00 Test Item Value Reference Range Interpretation Comments HEMOGLOBIN A1C (BEAKER) (test code = 6.7 % 4.3-6.1 H 368) [id number] 05:43:00 Test Item Value Reference Range Interpretation Comments PARTIAL THROMBOPLASTIN TIME 37.3 seconds 22.5-36.0 H (BEAKER) (test code = 760) PROTHROMBIN [id number] 05:42:00 Test Item Value Reference Range Interpretation Comments PROTIME (BEAKER) 15.9 seconds 11.9-14.2 H (test code = 759) INR (BEAKER) (test 1.31 See_Comment [Automat ed message] code = 370) The system [employer] generated this result transmitted ref erence range: <=5.90. The reference range was not used to int erpret this result as normal/abnormal . Effective 08/05/2018: PT Reference Range ChangeNew: 11.9-14.2 Previous: 11.7- 14.7RECOMMENDED COUMADIN/WARFARIN INR THERAPY RANGESSTANDARD DOSE: 2.0-3.0 Includes: PROPHYLAXIS for venous thrombosis, systemic embolization; TREATMENT for venous thrombosis and/or pulmonary embolus.HIGH RISK: Target INR is2.5-3.5 for patients wiht mechanical heart valves.TSH/FREE T4 IF [id number] 05:39:00 Test Item Value Reference Range Interpretation Comments THYROID STIMULATING HORMONE 0.510 uIU/mL 0.350-4.940 (BEAKER) (test code = 772) Insecticide Maker ID - ADELAIDE MCOMPREHENSIVE METABOLIC [id number] 05:23:00 Test Item Value Reference Range Interpretation [...] 347) EGFR (BEAKER) (test 76 mL/min/1.73 ESTIMA STELLA GFR IS code = 1092) sq m NOT ACCURATE CREATININE CLEARANCE IN PREDICTING GLOMERULAR FILTRATION RATE . ESTIMATED GFR I S NOT APPLICABLE FOR DIALYSIS PATIEN TS. Insecticide Maker ID - [id number] 05:23:00 Test Item Value Reference Range Interpretation Comments MAGNESIUM (BEAKER) (test code = 1.9 mg/dL 1.6-2.6 627) Insecticide Maker ID - [id number] 05:23:00 Test Item Value Reference Range Interpretation Comments PHOSPHORUS (BEAKER) (test code = 2.9 mg/dL 2.3-4.7 604) Insecticide Maker ID - SMLIPID [id number] 05:23:00 Test Item Value Reference Range Interpretation [...] Borderline 130-159 High 160-189 Very High >=190 Insecticide Maker ID - SMCBC W/PLT COUNT & AUTO [id number] 05:04:00 Test Item Value Reference Range Interpretation [...] PERCENT (BEAKER) (test code = 2801) POCT-GLUCOSE [id number] 16:36:00 Test Item Value Reference Range Interpretation Comments POC-GLUCOSE METER 108 mg/dL 70-110 TESTED AT [facility] 67[address] (BEAKER) (test code = [place] 1538) [address] BASIC METABOLIC [id number] 08:25:00 Test Item Value Reference Range Interpretation [...] PATIEN TS. CBC W/PLT COUNT & AUTO [id number] 05:31:00 Test Item Value Reference Range Interpretation [...] PERCENT (BEAKER) (test code = 2801) POCT-GLUCOSE [id number] 23:32:00 Test Item Value Reference Range Interpretation Comments POC-GLUCOSE METER 95 mg/dL 70-110 TESTED AT [place] [address] ([facility]) (test code = [facility] [address] 1538) POCT-GLUCOSE [id number] 17:21:00 Test Item Value Reference Range Interpretation Comments POC-GLUCOSE METER 104 mg/dL 70-110 TESTED AT [facility] 67[address] ([facility]) (test code = [facility] 1538) [address] [id number] 10:35:00 Test Item Value Reference Range Interpretation Comments MAGNESIUM (BEAKER) (test code = 1.9 mg/dL 1.6-2.6 627) POCT-GLUCOSE [id number] 09:09:00 Test Item Value Reference Range Interpretation Comments POC-GLUCOSE METER 122 mg/dL 70-110 H [facility] (BEAKER) (test code = [place] 1538) [address] BASIC METABOLIC [id number] 02:49:00 Test Item Value Reference Range Interpretation [...] APPLICABLE FOR DIALYSIS PATIEN TS. LACTIC ACID, [id number] 02:46:00 Test Item Value Reference Range Interpretation Comments LACTATE BLOOD VENOUS (2) (BEAKER) 2.0 mmol/L 0.5-2.2 (test code = 2872) LACTIC ACID, [id number] 22:31:00 Test Item Value Reference Range Interpretation Comments LACTATE BLOOD VENOUS (2) (BEAKER) 2.1 mmol/L 0.5-2.2 (test code = 2872) POCT-GLUCOSE [id number] 21:55:00 Test Item Value Reference Range Interpretation Comments POC-GLUCOSE METER 168 mg/dL 70-110 H [facility] (BEAKER) (test code = TABATHA [place]oz[place] 1538) [address] [id number] 20:15:00 Test Item Value Reference Range Interpretation Comments MAGNESIUM (BEAKER) (test code = 1.9 mg/dL 1.6-2.6 627) BASIC METABOLIC [id number] 20:15:00 Test Item Value Reference Range Interpretation [...] PATIEN TS. CBC W/PLT COUNT & AUTO [id number] 20:14:00 Test Item Value Reference Range Interpretation [...] (BEAKER) (test code = 2801) POCT-LACTIC ACID, [id number] 19:45:00 Test Item Value Reference Range Interpretation Comments POC-LACTIC ACID, 2.4 mmol/L 0.9-1.7 H TESTED AT [facility] 67[address] VENOUS (BEAKER) ([facility] [place] code = 2805) [address] POCT-GLUCOSE [id number] 19:25:00 Test Item Value Reference Range Interpretation Comments POC-GLUCOSE METER 204 mg/dL 70-110 H TESTED AT [place] [address] ([facility]) (test code = [facility] [place] 1538) [address] POCT-GLUCOSE [id number] 17:24:00 Test Item Value Reference Range Interpretation Comments POC-GLUCOSE METER 149 mg/dL 70-110 H TESTED AT [place] [address] ([facility]) (test code = [facility] 1538) [address] RAD, CHEST, 1 VIEW, NON [id number] 12:01:00Reason for exam:- >dyspneaShould this be performed at the bedside?->YesFINAL REPORT CLINICAL HISTORY: dyspnea TECHNIQUE: 1 view of the chest. COMPAR ZEUS: 07/25/2018 IMPRESSION: Left lung base pleural-parenchymal opacity is unchanged. The right lung remains relatively well-aerated. The cardiomediastinal silhouette is magnified by technique with sternotomy wires. Signed: Alan Chi MDReport Verified Date/Time: 07/27/2018 12:01:19 Reading Location: [facility] Radiology Reading Room TISSUE [id number] 11:59:00Surgical Pathology Report Case: [id number] Authorizing Provider: Shine Talavera, Collected: 07/21/2018 1022 MD OrderingLocation: [facility] Received: 07/21/2018 1159 PERIOPERATIVE SERVICES Pathologist: Davion Mallory MD Specimen: Aortic Valve HEART, AORTIC VALVE,VALVULECTOMY:LEAFLETS WITH SEVERE NODULAR CALCIFIC ATHEROSCLEROTIC THICKENING Signing Pathologist Direct Phone Line: [phone] signed by Davion Mallory MD on 07/27/2018 at 11:59 A [id number]; [id number] disease disease, aortic valve stenosis, etiology of [...] representatively in a single cassette following decalcification. [id number]/[id number] 11:30:00 Test Item Value Reference Range Interpretation Comments MAGNESIUM (BEAKER) (test code = 1.7 mg/dL 1.6-2.6 627) POCT-GLUCOSE [id number] 09:47:00 Test Item Value Reference Range Interpretation Comments POC-GLUCOSE METER 114 mg/dL 70-110 H TESTED AT [place] [address] (BEAKER) (test code = [facility] 1538) [address] BASIC METABOLIC [id number] 05:37:00 Test Item Value Reference Range Interpretation [...] NOT APPLICABLE FOR DIALYSIS PATIEN TS. POCT-GLUCOSE [id number] 21:01:00 Test Item Value Reference Range Interpretation Comments POC-GLUCOSE METER 136 mg/dL 70-110 H TESTED AT [place] [address] ([facility]) (test code = [facility] 1538) [address] POCT-GLUCOSE [id number] 15:47:00 Test Item Value Reference Range Interpretation Comments POC-GLUCOSE METER 121 mg/dL 70-110 H TESTED AT [place] [address] ([facility]) (test code = [facility] 1538) [address] POCT-GLUCOSE [id number] 09:34:00 Test Item Value Reference Range Interpretation Comments POC-GLUCOSE METER 95 mg/dL 70-110 TESTED AT [place] [address] ([facility]) (test code = [facility] [address]38) BASIC METABOLIC [id number] 07:28:00 Test Item Value Reference Range Interpretation [...] NOT APPLICABLE FOR DIALYSIS PATIEN TS. POCT-GLUCOSE [id number] 22:08:00 Test Item Value Reference Range Interpretation Comments POC-GLUCOSE METER 149 mg/dL 70-110 H TESTED AT [place] [address] ([facility]) (test code = [facility] 1538) [id number] POCT-GLUCOSE [id number] 15:46:00 Test Item Value Reference Range Interpretation Comments POC-GLUCOSE METER 95 mg/dL 70-110 TESTED AT [place] [address] ([facility]) (test code = [facility] [address] 1538) B-TYPE NATRIURETIC FACTOR (BNP)2018-07-25 11:55:00 Test Item Value Reference Range Interpretation Comments B-TYPE NATRIURETIC PEPTIDE ([facility]) 301 pg/mL 0-100 H (test code = 700) RAD, CHEST, 1 VIEW, NON [id number] 11:29:00Reason for exam:->shortness of breathShould this be performed at the bedside?->YesFINAL REPORT Comparison: 07/24/2018 TECHNIQUE: Single view of the chest FINDINGS: Small left pleural effusion with adjacent airspace disease. Mild vascular congestion suspected elsewhere. Cardiac silhouette is enlarged. Postsurgical changes in the mediastinum noted. Signed: Aung Timmons MDReport Verified Date/Time: 07/25/2018 11:29:19 Reading Location: [address] [id number] 09:47:00 Test Item Value Reference Range Interpretation Comments MAGNESIUM (BEAKER) (test code = 1.9 mg/dL 1.6-2.6 627) BASIC METABOLIC [id number] 09:47:00 Test Item Value Reference Range Interpretation [...] NOT APPLICABLE FOR DIALYSIS PATIEN TS. POCT-GLUCOSE [id number] 08:41:00 Test Item Value Reference Range Interpretation Comments POC-GLUCOSE METER 115 mg/dL 70-110 H TESTED AT [facility] 6720 (BEAKER) (test code = TABATHA [place] 1538) [address] CBC W/PLT COUNT & AUTO [id number] 06:04:00 Test Item Value Reference Range Interpretation [...] PERCENT (BEAKER) (test code = 2801) POCT-GLUCOSE [id number] 21:45:00 Test Item Value Reference Range Interpretation Comments POC-GLUCOSE METER 120 mg/dL 70-110 H TESTED AT [facility] 67 (BEAKER) (test code = TABATHA SANT[place] 1538) [address] POCT-GLUCOSE [id number] 18:01:00 Test Item Value Reference Range Interpretation Comments POC-GLUCOSE METER 150 mg/dL 70-110 H TESTED AT [place] [address] ([facility]) (test code = TABATHA Lozano [place] 1538) [address] POCT-GLUCOSE [id number] 13:03:00 Test Item Value Reference Range Interpretation Comments POC-GLUCOSE METER 152 mg/dL 70-110 H TESTED AT [place] [address] ([facility]) (test code = TABATHA Lozano [place] 1538) [address] RAD, CHEST, 1 VIEW, NON [id number] 09:45:00Reason for exam:->pleural effShould this be performed at the bedside?->YesFINAL REPORT TECHNIQUE: Frontal chest radiograph dated 07/24/2018. CLINICAL HISTORY: Pleural effusion COMPARISON STUDY: Chest radiograph dated 07/22/2018 IMPRESSION:The extreme lateral left lung base is not included in the [id number]-[id number]. A small left pleural effusion is suspected. Stable left lung base atelectasis. No pneumothorax. Cardiomediastinal silhouette is normal in size.No pulmonary edema. Midline sternotomy wires are intact and well aligned. Signed: Neel Hameport Verified Date/Time: 07/24/2018 09:45:08 Reading Location: [facility] Radiology Reading Room POCT-GLUCOSE [id number] 08:16:00 Test Item Value Reference Range Interpretation Comments POC-GLUCOSE METER 149 mg/dL 70-110 H TESTED AT [place] [address] ([facility]) (test code = TABATHA Lozano [facility] 1538) [address] [id number] 07:48:00 Test Item Value Reference Range Interpretation Comments PHOSPHORUS (BEAKER) (test code = 1.5 mg/dL 2.3-4.7 LL 604) [id number] 07:43:00 Test Item Value Reference Range Interpretation Comments MAGNESIUM (BEAKER) (test code = 1.8 mg/dL 1.6-2.6 627) BASIC METABOLIC [id number] 07:43:00 Test Item Value Reference Range Interpretation [...] PATIEN TS. CBC W/PLT COUNT & AUTO [id number] 06:04:00 Test Item Value Reference Range Interpretation [...] PERCENT (BEAKER) (test code = 2801) POCT-GLUCOSE [id number] 21:28:00 Test Item Value Reference Range Interpretation Comments POC-GLUCOSE METER 130 mg/dL 70-110 H TESTED AT [facility] 6720 (BEAKER) (test code = TABATHA [place] 1538) [address] URINALYSIS W/ REFLEX URINE [id number] 18:20:00 Test Item Value Reference Range Interpretation [...] Moderate SOURCE(BEAKER) (test code = 2795) POCT-GLUCOSE [id number] 14:57:00 Test Item Value Reference Range Interpretation Comments POC-GLUCOSE METER 135 mg/dL 70-110 H TESTED AT [facility] 6720 (BEAKER) (test code = TABATHA [place] 1538) [address] B-TYPE NATRIURETIC FACTOR (BNP)2018-07-23 06:49:00 Test Item Value Reference Range Interpretation Comments B-TYPE NATRIURETIC PEPTIDE (BEAKER) 446 pg/mL 0-100 H (test code = 700) [id number] 06:09:00 Test Item Value Reference Range Interpretation Comments PHOSPHORUS (BEAKER) (test code = 2.4 mg/dL 2.3-4.7 604) [id number] 06:09:00 Test Item Value Reference Range Interpretation Comments MAGNESIUM (BEAKER) (test code = 2.0 mg/dL 1.6-2.6 627) BASIC METABOLIC [id number] 06:09:00 Test Item Value Reference Range Interpretation [...] NOT APPLICABLE FOR DIALYSIS PATIEN TS. CALCIUM, [id number] 05:57:00 Test Item Value Reference Range Interpretation Comments CALCIUM IONIZED (BEAKER) (test 1.03 mmol/L 1.12-1.27 L code = 698) PH, BLOOD (BEAKER) (test code = 7.44 1810) Check serum Ionized Calcium level after 4 hours after IV Calcium replacement.CBC W/PLT COUNT & AUTO [id number] 05:46:00 Test Item Value Reference Range Interpretation [...] = 2801) RAD, CHEST, 1 VIEW, NON [id number] 00:00:00Reason for exam:->sobShould this be performed at [...] MDReport Verified Date/Time: 07/23/2018 00:00:17 Reading Location: [address] Consult Reading Room Electronically signed by: SHALA WOODS M.D. on07/23/2018 12:00 AMPOCT-GLUCOSE METER 2018-07-22 21:49:00 Test Item Value Reference Range Interpretation Comments POC-GLUCOSE METER 133 mg/dL 70-110 H TESTED AT [place] [address] ([facility]) (test code = TABATHA Lozano [facility] 1538) [address] POCT-GLUCOSE [id number] 16:55:00 Test Item Value Reference Range Interpretation Comments POC-GLUCOSE METER 156 mg/dL 70-110 H TESTED AT [place] [address] ([facility]) (test code = TABATHA Lozano [facility] 1538) [address] POCT-GLUCOSE [id number] 11:33:00 Test Item Value Reference Range Interpretation Comments POC-GLUCOSE METER 164 mg/dL 70-110 H TESTED AT [place] [address] (BEAKER) (test code = TABATHA [place] 1538) [address] [id number] 11:29:00 Test Item Value Reference Range Interpretation Comments PARTIAL THROMBOPLASTIN TIME 47.4 seconds 22.5-36.0 H (BEAKER) (test code = 760) PLATELET [id number] 11:14:00 Test Item Value Reference Range Interpretation Comments PLATELET COUNT (BEAKER) (test 105 K/CU MM 150-450 L code = 756) BASIC METABOLIC [id number] 05:57:00 Test Item Value Reference Range Interpretation [...] S NOT APPLICABLE FOR DIALYSIS PATIEN TS. [id number] 05:56:00 Test Item Value Reference Range Interpretation Comments PHOSPHORUS (BEAKER) (test code = 3.3 mg/dL 2.3-4.7 604) [id number] 05:56:00 Test Item Value Reference Range Interpretation Comments MAGNESIUM (BEAKER) (test code = 2.0 mg/dL 1.6-2.6 627) CBC W/PLT COUNT & AUTO [id number] 05:34:00 Test Item Value Reference Range Interpretation [...] (BEAKER) (test code = 2801) OXYGEN SATURATION, [id number] 05:24:00 Test Item Value Reference Range Interpretation Comments O2 SATURATION (MEASURED) (BEAKER) 62.1 % (test code = 1455) BLOOD GAS, [id number] 05:20:00 Test Item Value Reference Range Interpretation [...] 40.0 % RAD, CHEST, 1 VIEW, NON [id number] 04:49:00Reason for exam:->s/p cardiac surgeryShould this be [...] MDReport Verified Date/Time: 07/22/2018 04:49:49 Reading Location: [address] Reading Room POCT- GLUCOSE [id number] 03:10:00 Test Item Value Reference Range Interpretation Comments POC-GLUCOSE METER 131 mg/dL 70-110 H TESTED AT [facility] 6720 (BEAKER) (test code = TABATHA Lozano [place] 1538) [address] LACTIC ACID, [id number] 22:27:00 Test Item Value Reference Range Interpretation Comments LACTATE BLOOD ARTERIAL (2) 2.0 mmol/L 0.5-2.2 (BEAKER) (test code = 2874) [id number] 22:25:00 Test Item Value Reference Range Interpretation Comments MAGNESIUM (BEAKER) (test code = 2.2 mg/dL 1.6-2.6 627) SODIUM NA-STAT [id number] 22:07:00 Test Item Value Reference Range Interpretation Comments SODIUM (BEAKER) (test code = 381) 138 meq/L 135-148 POTASSIUM-STAT [id number] 22:07:00 Test Item Value Reference Range Interpretation Comments POTASSIUM (BEAKER) (test code = 4.1 meq/L 3.6-5.5 379) OXYGEN SATURATION, [id number] 22:07:00 Test Item Value Reference Range Interpretation Comments O2 SATURATION (MEASURED) (BEAKER) 59.7 % (test code = 1455) BLOOD GAS, [id number] 22:07:00 Test Item Value Reference Range Interpretation [...] (test code = 1819) 40.0 % GLUCOSE-STAT [id number] 22:07:00 Test Item Value Reference Range Interpretation Comments GLUCOSE RANDOM (BEAKER) (test code 113 mg/dL 70-110 H = 652) HGB/HCT (H&H) - STAT [id number] 22:07:00 Test Item Value Reference Range Interpretation Comments HEMOGLOBIN (BEAKER) (test code = 10.9 g/dL 13.0-16.8 L 410) HEMATOCRIT (BEAKER) (test code = 32.0 % 40.0-50.0 L 411) LACTIC ACID, [id number] 20:27:00 Test Item Value Reference Range Interpretation Comments LACTATE BLOOD ARTERIAL (2) 2.1 mmol/L 0.5-2.2 (BEAKER) (test code = 2874) [id number] 20:26:00 Test Item Value Reference Range Interpretation Comments POTASSIUM (BEAKER) (test code = 4.3 meq/L 3.5-5.1 379) [id number] 20:26:00 Test Item Value Reference Range Interpretation Comments GLUCOSE RANDOM (BEAKER) (test code 148 mg/dL 70-105 H = 652) BLOOD GAS, [id number] 20:14:00 Test Item Value Reference Range Interpretation [...] (test code = 1819) 60.0 % POCT-GLUCOSE [id number] 18:45:00 Test Item Value Reference Range Interpretation Comments POC-GLUCOSE METER 136 mg/dL 70-110 H TESTED AT [facility] 6720 (BEAKER) (test code = TABATHA [place] 1538) [address] BLOOD GAS, [id number] 17:22:00 Test Item Value Reference Range Interpretation [...] (test code = 1819) 60.0 % POCT-GLUCOSE [id number] 16:40:00 Test Item Value Reference Range Interpretation Comments POC-GLUCOSE METER 159 mg/dL 70-110 H TESTED AT [facility] 6720 (BEAKER) (test code = TABATHA [place] 1538) [address] [id number] 13:26:00 Test Item Value Reference Range Interpretation Comments MAGNESIUM (BEAKER) 2.4 mg/dL 1.6-2.6 Specimen slightly (test code = 627) hemolyzed [id number] 13:26:00 Test Item Value Reference Range Interpretation Comments PHOSPHORUS (BEAKER) 2.4 mg/dL 2.3-4.7 Specimen slightly (test code = 604) hemolyzed BASIC METABOLIC [id number] 13:26:00 Test Item Value Reference Range Interpretation [...] APPLICABLE FOR DIALYSIS PATIEN TS. LACTIC ACID, [id number] 13:24:00 Test Item Value Reference Range Interpretation Comments LACTATE BLOOD 2.7 mmol/L 0.5-2.2 H Specimen sligh tly ARTERIAL (2) (BEAKER) hemoly zed (test code = 2874) [id number] 13:19:00 Test Item Value Reference Range Interpretation Comments PARTIAL THROMBOPLASTIN TIME 38.9 seconds 22.5-36.0 H (BEAKER) (test code = 760) PROTHROMBIN [id number] 13:18:00 Test Item Value Reference Range Interpretation [...] = 2801) RAD, CHEST, 1 VIEW, NON [id number] 13:14:00Reason for exam:->s/p cardiac surgeryShould this be [...] are seen in the spine. Signed: Neel Hamepitzel Verified Date/Time: 07/21/2018 13:14:32 Reading Location: [facility] Radiology Readi ng Room BLOOD GAS, [id number] 13:10:00 Test Item Value Reference Range Interpretation [...] code = 1819) 60.0 % SODIUM NA-STAT [id number] 13:10:00 Test Item Value Reference Range Interpretation Comments SODIUM (BEAKER) (test code = 381) 134 meq/L 135-148 L GLUCOSE-STAT [id number] 13:10:00 Test Item Value Reference Range Interpretation Comments GLUCOSE RANDOM (BEAKER) (test code 165 mg/dL 70-110 H = 652) HGB/HCT (H&H) - STAT [id number] 13:10:00 Test Item Value Reference Range Interpretation Comments HEMOGLOBIN (BEAKER) (test code = 12.3 g/dL 13.0-16.8 L 410) HEMATOCRIT (BEAKER) (test code = 36.0 % 40.0-50.0 L 411) OXYGEN SATURATION, [id number] 13:09:00 Test Item Value Reference Range Interpretation Comments O2 SATURATION (MEASURED) (BEAKER) 70.2 % (test code = 1455) POTASSIUM-STAT [id number] 13:08:00 Test Item Value Reference Range Interpretation Comments POTASSIUM (BEAKER) (test code = 4.3 meq/L 3.6-5.5 379) [id number] 11:23:00 Test Item Value Reference Range Interpretation Comments ACTIVATED CLOTTING TIME 114 sec TEST ED AT [place] [address] ([facility]) (test code = TABATHA Blake [place] 441) [address] [id number] 11:23:00 Test Item Value Reference Range Interpretation Comments ACTIVATED CLOTTING TIME 719 sec TEST ED AT [place] [address] (BEAKER) (test code = TABATHA Lozano [facility] 441) [address] [id number] 11:23:00 Test Item Value Reference Range Interpretation Comments ACTIVATED CLOTTING TIME 516 sec TEST ED AT [place] [address] (BEAKER) (test code = TABATHA Lozano [facility] 441) [address] [id number] 11:23:00 Test Item Value Reference Range Interpretation Comments ACTIVATED CLOTTING TIME 598 sec TEST ED AT [place] [address] (BEAKER) (test code = TABATHA Lozano [place] [address]) [address] BLOOD GAS, [id number] 11:21:00 Test Item Value Reference Range Interpretation [...] (test code = 1819) 100.0 % GLUCOSE-STAT [id number] 11:21:00 Test Item Value Reference Range Interpretation Comments GLUCOSE RANDOM (BEAKER) (test code 195 mg/dL 70-110 H = 652) HGB/HCT (H&H) - STAT [id number] 11:21:00 Test Item Value Reference Range Interpretation Comments HEMOGLOBIN (BEAKER) (test code = 11.3 g/dL 13.0-16.8 L 410) HEMATOCRIT (BEAKER) (test code = 33.0 % 40.0-50.0 L 411) CALCIUM, [id number] 11:20:00 Test Item Value Reference Range Interpretation Comments CALCIUM IONIZED (BEAKER) (test 1.19 mmol/L 1.12-1.27 code = 698) PH, BLOOD (BEAKER) (test code = 7.31 1810) SODIUM NA-STAT [id number] 11:18:00 Test Item Value Reference Range Interpretation Comments SODIUM (BEAKER) (test code = 381) 135 meq/L 135-148 POTASSIUM-STAT [id number] 11:18:00 Test Item Value Reference Range Interpretation Comments POTASSIUM (BEAKER) (test code = 4.4 meq/L 3.6-5.5 379) [id number] 11:14:00 Test Item Value Reference Range Interpretation Comments FIBRINOGEN LEVEL (BEAKER) (test 230 mg/dl 225-434 code = 658) [id number] 11:14:00 Test Item Value Reference Range Interpretation Comments PARTIAL THROMBOPLASTIN TIME 41.3 seconds 22.5-36.0 H (BEAKER) (test code = 760) PROTHROMBIN [id number] 11:13:00 Test Item Value Reference Range Interpretation Comments PROTIME (BEAKER) (test code = 19.8 seconds 11.7-14.7 H 759) INR (BEAKER) (test code = 370) 1.8 <=5.9 RECOMMENDED COUMADIN/WARFARIN INR THERAPY RANGESSTANDARD DOSE: 2.0 - 3.0 Includes: PROPHYLAXIS forvenous thrombosis, systemic embolization; TREATMENT for venous thrombosis and/or pulmonary embolus.HIGH RISK: Target INR is 2.5-3.5 for patients with mechanical heart valves.PLATELET [id number] 10:56:00 Test Item Value Reference Range Interpretation Comments PLATELET COUNT (BEAKER) (test code 84 K/CU MM 150-450 L = 756) BLOOD GAS, [id number] 10:44:00 Test Item Value Reference Range Interpretation [...] code = 1819) 100.0 % SODIUM NA-STAT [id number] 10:44:00 Test Item Value Reference Range Interpretation Comments SODIUM (BEAKER) (test code = 381) 134 meq/L 135-148 L GLUCOSE-STAT [id number] 10:44:00 Test Item Value Reference Range Interpretation Comments GLUCOSE RANDOM (BEAKER) (test code 232 mg/dL 70-110 H = 652) HGB/HCT (H&H) - STAT [id number] 10:44:00 Test Item Value Reference Range Interpretation Comments HEMOGLOBIN (BEAKER) (test code = 8.9 g/dL 13.0-16.8 L 410) HEMATOCRIT (BEAKER) (test code = 26.0 % 40.0-50.0 L 411) CALCIUM, [id number] 10:44:00 Test Item Value Reference Range Interpretation Comments CALCIUM IONIZED (BEAKER) (test 1.05 mmol/L 1.12-1.27 L code = 698) PH, BLOOD (BEAKER) (test code = 7.32 1810) POTASSIUM-STAT [id number] 10:43:00 Test Item Value Reference Range Interpretation Comments POTASSIUM (BEAKER) (test code = 5.3 meq/L 3.6-5.5 379) POTASSIUM-STAT [id number] 10:16:00 Test Item Value Reference Range Interpretation Comments POTASSIUM (BEAKER) (test code = 6.8 meq/L 3.6-5.5 HH 379) HGB/HCT (H&H) - STAT [id number] 10:12:00 Test Item Value Reference Range Interpretation Comments HEMOGLOBIN (BEAKER) (test code = 8.1 g/dL 13.0-16.8 L 410) HEMATOCRIT (BEAKER) (test code = 24.0 % 40.0-50.0 L 411) BLOOD GAS, [id number] 10:11:00 Test Item Value Reference Range Interpretation [...] (test code = 1819) 70.0 % GLUCOSE-STAT [id number] 10:11:00 Test Item Value Reference Range Interpretation Comments GLUCOSE RANDOM (BEAKER) (test code 236 mg/dL 70-110 H = 652) SODIUM NA-STAT [id number] 10:11:00 Test Item Value Reference Range Interpretation Comments SODIUM (BEAKER) (test code = 381) 131 meq/L 135-148 L BLOOD GAS, [id number] 09:44:00 Test Item Value Reference Range Interpretation [...] code = 1819) 70.0 % SODIUM NA-STAT [id number] 09:44:00 Test Item Value Reference Range Interpretation Comments SODIUM (BEAKER) (test code = 381) 133 meq/L 135-148 L POTASSIUM-STAT [id number] 09:44:00 Test Item Value Reference Range Interpretation Comments POTASSIUM (BEAKER) (test code = 5.9 meq/L 3.6-5.5 H 379) GLUCOSE-STAT [id number] 09:44:00 Test Item Value Reference Range Interpretation Comments GLUCOSE RANDOM (BEAKER) (test code 204 mg/dL 70-110 H = 652) HGB/HCT (H&H) - STAT [id number] 09:44:00 Test Item Value Reference Range Interpretation Comments HEMOGLOBIN (BEAKER) (test code = 8.2 g/dL 13.0-16.8 L 410) HEMATOCRIT (BEAKER) (test code = 24.0 % 40.0-50.0 L 411) SODIUM NA-STAT [id number] 09:16:00 Test Item Value Reference Range Interpretation Comments SODIUM (BEAKER) (test code = 381) 132 meq/L 135-148 L POTASSIUM-STAT [id number] 09:16:00 Test Item Value Reference Range Interpretation Comments POTASSIUM (BEAKER) (test code = 5.6 meq/L 3.6-5.5 H 379) HGB/HCT (H&H) - STAT [id number] 09:16:00 Test Item Value Reference Range Interpretation Comments HEMOGLOBIN (BEAKER) (test code = 8.1 g/dL 13.0-16.8 L 410) HEMATOCRIT (BEAKER) (test code = 24.0 % 40.0-50.0 L 411) BLOOD GAS, [id number] 09:15:00 Test Item Value Reference Range Interpretation [...] (test code = 1819) 80.0 % GLUCOSE-STAT [id number] 09:15:00 Test Item Value Reference Range Interpretation Comments GLUCOSE RANDOM (BEAKER) (test code 207 mg/dL 70-110 H = 652) [id number] 08:51:00 Test Item Value Reference Range Interpretation Comments ACTIVATED CLOTTING TIME 577 sec TEST ED AT [place] [address] (BEAKER) (test code = TABATHA [place] 441) [address] BLOOD GAS, [id number] 08:20:00 Test Item Value Reference Range Interpretation [...] (test code = 1819) 100.0 % GLUCOSE-STAT [id number] 08:20:00 Test Item Value Reference Range Interpretation Comments GLUCOSE RANDOM (BEAKER) (test code 132 mg/dL 70-110 H = 652) SODIUM NA-STAT [id number] 08:19:00 Test Item Value Reference Range Interpretation Comments SODIUM (BEAKER) (test code = 381) 138 meq/L 135-148 POTASSIUM-STAT [id number] 08:19:00 Test Item Value Reference Range Interpretation Comments POTASSIUM (BEAKER) (test code = 3.8 meq/L 3.6-5.5 379) HGB/HCT (H&H) - STAT [id number] 08:19:00 Test Item Value Reference Range Interpretation Comments HEMOGLOBIN (BEAKER) (test code = 14.2 g/dL 13.0-16.8 410) HEMATOCRIT (BEAKER) (test code = 42.0 % 40.0-50.0 411) POCT-GLUCOSE [id number] 06:27:00 Test Item Value Reference Range Interpretation Comments POC-GLUCOSE METER 130 mg/dL 70-110 H TESTED AT [place] [address] (BEAKER) (test code = TABATHA Lozano [place] 1538) [address] CT, CHEST, WITHOUT [id number] 17:18:00preop AVR ACB assess for calcification aortaAddendum BeginsREPORT STATUS:A Addendum: I agree with the previously described non vascular findings. Signed: Rosalba Kai MDReport Verified Date/Time: 07/09/2018 17:18:52 Reading Location: [place] [address] Angio Body Reading RoomAddendum EndsFINAL REPORT CT [...] dictated regarding the non-vascular findings by the [facility] Radiologist. Signed: Michele Lua MDReport Verified Date/Time: 07/09/2018 14:59:04 Reading Location: [place] [address] Cardiology MRI RAD, CHEST, 2 [id number] 14:54:00Reason for exam:->pre opFINAL REPORT Chest, 2 views. Clinical History: pre op Comparison Study: None Findings: The heart and lungs are within normal limits. The aorta is tortuous. The pleural spaces are clear. No significant bony or soft tissue abnormalities are seen. Impression: No active cardiopulmonary disease. Signed: Mukesh Mcmanus MDReport Verified Date/Time: 07/09/2018 14:54:20 Reading Location: [facility] [id number] Consult Reading Room HEMOGLOBIN [id number] 14:40:00 Test Item Value Reference Range Interpretation Comments HEMOGLOBIN A1C (BEAKER) (test code = 6.4 % 4.3-6.1 H 368) BASIC METABOLIC [id number] 13:47:00 Test Item Value Reference Range Interpretation [...] NOT APPLICABLE FOR DIALYSIS PATIEN TS. PROTHROMBIN [id number] 13:36:00 Test Item Value Reference Range Interpretation [...] 417) IMMATURE GRANULOCYTES-RELATIVE 0 % 0-1 PERCENT (HALLIE) (test code = 2801)
[2021-08-31] MEDS ORDERED: NA CHLORIDE 0.9% 100 ML ONE (02:29)
[2021-08-31] MEDS ORDERED: Meropenem 1000 MG/VIAL IV ONE (02:29)
[2021-08-31] MEDS ORDERED: NA CHLORIDE 0.9% 1,000 ML ONE (02:30)
[2021-08-31 02:48] LABS: Urine Blood 3+ (Negative); Urine Glucose Trace (Negative); Urine Protein 3+ (Negative); Urine Specific Gravity 1.025 (1.005-1.030)
--- NOTE | 2021-08-31 03:14 | EDPHYS ---
Physician Documentation [facility] Name: Franklin Castro Age: 81 yrs Sex: Male : 1940 Arrival Date: 08/31/2021 Time: 01:23 Bed 6 Private MD: Zuly Jones C ED Physician Gonzales Brian HPI: 08/31 02:19 This 81 yrs old Male presents to ER via Wheelchair with complaints of Urinary sylvia Problem, Weakness, Nausea. 02:19 The patient presents to the emergency department with weakness of the entire body, sylvia generalized weakness. Onset: The symptoms/episode began/occurred just prior to arrival, this morning. Associated signs and symptoms: Pertinent positives: fever, nausea, near-syncope. Severity of symptoms: At their worst the symptoms were mild moderate in the emergency department the symptoms are unchanged. Patient's baseline: Neuro: alert and fully oriented. The patient has not experienced similar symptoms in the past. Historical: - Allergies: 01:41 No Known Allergies; lp1 - Home Meds: 01:41 metformin 500 mg Oral Tb24 1 tab once daily [Active]; levothyroxine 112 mcg oral tab lp1 once daily [Active]; duloxetine 20 mg Oral cpDR 1 cap daily [Active]; aspirin 81 mg Oral TbEC 1 tab once daily [Active]; metoprolol tartrate 25 mg Oral tab 1 tab 2 times per day [Active]; amlodipine 5 mg tab 1 tab once daily [Active]; - PMHx: 01:41 Dementia; Diabetes - NIDDM; Hypertension; Hypothyroidism; Subdural frontal bleed; lp1 throat cancer; - PSHx: 01:41 Heart surgery; Tonsillectomy; lp1 - Immunization history:: Adult Immunizations up to date. - Social history:: Smoking status: Patient denies any tobacco usage or history of. ROS: 02:21 Eyes: Negative for injury, pain, redness, and discharge, ENT: Negative for injury, sylvia pain, and discharge, Neck: Negative for injury, pain, and swelling, Cardiovascular: Negative for chest pain, palpitations, and edema, Respiratory: Negative for shortness of breath, cough, wheezing, and pleuritic chest pain, Abdomen/GI: Negative for abdominal pain, nausea, vomiting, diarrhea, and constipation, Back: Negative for injury and pain, MS/Extremity: Negative for injury and deformity, Skin: Negative for injury, rash, and discoloration, Psych: Negative for depression, anxiety, suicide ideation, homicidal ideation, and hallucinations, Allergy/Immunology: Negative for hives, rash, and allergies, Endocrine: Negative for neck swelling, polydipsia, polyuria, polyphagia, and marked weight changes, Hematologic/Lymphatic: Negative for swollen nodes, abnormal bleeding, and unusual bruising. 02:21 Constitutional: Positive for fatigue, fever, malaise. 02:21 : Positive for urinary symptoms, hematuria. 02:21 Neuro: Positive for weakness. Exam: 02:21 Constitutional: This is a well developed, well nourished patient who is awake, alert, sylvia and in no acute distress. Head/Face: Normocephalic, atraumatic. Eyes: Pupils equal round and reactive to light, extra-ocular motions intact. Lids and lashes normal. Conjunctiva and sclera are non-icteric and not injected. Cornea within normal limits. Periorbital areas with no swelling, redness, or edema. ENT: Nares patent. No nasal discharge, no septal abnormalities noted. Tympanic membranes are normal and external auditory canals are clear. Oropharynx with no redness, swelling, or masses, exudates, or evidence of obstruction, uvula midline. Mucous membranes moist. Neck: Trachea midline, no thyromegaly or masses palpated, and no cervical lymphadenopathy. Supple, full range of motion without nuchal rigidity, or vertebral point tenderness. No Meningismus. Chest/axilla: Normal chest wall appearance and motion. Nontender with no deformity. No lesions are appreciated. Cardiovascular: Regular rate and rhythm with a normal S1 and S2. No gallops, murmurs, or rubs. Normal PMI, no JVD. No pulse deficits. Respiratory: Lungs have equal breath sounds bilaterally, clear to auscultation and percussion. No rales, rhonchi or wheezes noted. No increased work of breathing, no retractions or nasal flaring. Back: No spinal tenderness. No costovertebral tenderness. Full range of motion. Skin: Warm, dry with normal turgor. Normal color with no rashes, no lesions, and no evidence of cellulitis. MS/ Extremity: Pulses equal, no cyanosis. Neurovascular intact. Full, normal range of motion. Neuro: Awake and alert, GCS 15, oriented to person, place, time, and situation. Cranial nerves II-XII grossly intact. Motor strength 5/5 in all extremities. Sensory grossly intact. Cerebellar exam normal. Normal gait. Psych: Awake, alert, with orientation to person, place and time. Behavior, mood, and affect are within normal limits. 02:21 Abdomen/GI: Inspection: distension, Bowel sounds: normal, Palpation: mild abdominal tenderness, in all quadrants, Liver: no appreciated palpable abnormalities, Hernia: not appreciated. 03:13 ECG was reviewed by the Attending Physician. [facility] Vital Signs: 01:37 Weight 102.06 kg (R); Height 5 ft. 7 in. (170.18 cm); lp1 02:12 BP 147 / 85; Pulse 81; Resp 18; Temp 98.3; Pulse Ox 98% on R/A; Weight 105.23 kg; kd3 Height 5 ft. 8 in. (172.72 cm); Pain 0/10; 02:12 Body Mass Index 35.28 (105.23 kg, 172.72 cm) kd3 MDM: 01:30 Patient medically screened. [facility] 02:25 Differential diagnosis: UTI, urinary retention, prostatitis, urethritis, viral syliva Infection, bacterial infection, URI. Differential Diagnosis sepsis. Data reviewed: vital signs, nurses notes, lab test result(s), EKG, radiologic studies, CT scan, plain films. Data interpreted: surveillance system monitor: rate is 81 beats/min, rhythm is regular. Test interpretation: by ED physician or midlevel provider: ECG, plain radiologic studies. Counseling: I had a detailed discussion with the patient and/or guardian regarding: the historical points, exam findings, and any diagnostic results supporting the discharge/admit diagnosis, lab results, radiology results. 08/31 02:18 Order name: Basic Metabolic Panel [facility] 08/31 02:18 Order name: CBC with Diff 08/31 02:18 Order name: LFT's [facility] 08/31 02:18 Order name: Magnesium [facility] 08/31 02:18 Order name: NT PRO-BNP [facility] 08/31 02:18 Order name: PT-INR [facility] 08/31 02:18 Order name: Troponin HS [facility] 08/31 02:18 Order name: XRAY Chest (1 view) 08/31 02:18 Order name: Blood Culture Adult (2) [facility] 08/31 02:18 Order name: Lactate [facility] 08/31 02:18 Order name: Procalcitonin [facility] 08/31 02:18 Order name: SARS-COV-2 RT PCR (Document "Date of Onset" if Symptomatic) [facility] 08/31 02:18 Order name: Urine Culture [facility] 08/31 02:49 Order name: Urine Dipstick-Ancillary; Complete Time: 03:02 EDMS 08/31 02:18 Order name: EKG; Complete Time: 02:20 [facility] 08/31 02:18 Order name: Cardiac monitoring; Complete Time: 02:41 [facility] 08/31 02:18 Order name: EKG - Nurse/Tech; Complete Time: 02:50 [facility] 08/31 02:18 Order name: IV Saline Lock; Complete Time: 02:50 [facility] 08/31 02:18 Order name: Labs collected and sent; Complete Time: 02:50 [facility] 08/31 02:18 Order name: O2 Per Protocol; Complete Time: 02:20 [facility] 08/31 02:18 Order name: O2 Sat Monitoring; Complete Time: 02:20 [facility] 08/31 02:18 Order name: Urine Dipstick-Ancillary (obtain specimen); Complete Time: 02:50 [facility] 08/31 02:20 Order name: CT Stone Protocol [facility] 08/31 02:24 Order name: Stone Protocol EDMS EC:13 Rate is 80 beats/min. Rhythm is regular. QRS [place] is Normal. TN interval is normal. QRS sylvia interval is normal. QT interval is normal. No Q waves. No ST changes noted. Clinical impression: Abnormal EKG without significant change and No evidence of ischemia. Interpreted by me. Reviewed by me. Administered Medications: 02:50 Drug: NS 0.9% 1000 ml Route: IV; Rate: 1 bolus; Site: right forearm; kd3 04:56 Follow up: Response: No adverse reaction; IV Status: Completed infusion kd3 02:50 Drug: Meropenem 1 grams Route: IV; Rate: per protocol; Site: right forearm; kd3 04:56 Follow up: Response: No adverse reaction; IV Status: Completed infusion kd3 Disposition Summary: 08/31/21 03:13 Hospitalization Ordered Hospitalization Status: Inpatient Admission sylvia Provider: Zuly Jones cha Location: Telemetry/MedSur (Inpatient) sylvia Condition: Fair sylvia Problem: new sylvia Symptoms: have improved sylvia Bed/Room Type: Standard [facility] Room Assignment: [id number](08/31/21 04:25) cg Diagnosis - Acute cystitis sylvia - Acute cystitis with hematuria sylvia - Weakness sylvia - Type 2 diabetes mellitus with hyperglycemia sylvia Forms: - Medication Reconciliation Form sylvia - SBAR form sylvia Signatures: Dispatcher [employer] EDGonzales Hernandez MD MD cha Pena, Laura, RN RN lp1 Stefanie Sandoval RN RN cg Doucette, Kyli, RN RN kd3 Corrections: (The following items were deleted from the chart) 04:25 03:13 sylvia cg
--- NOTE | 2021-08-31 03:14 | ER ---
Nurse's Notes [facility] Name: Franklin Castro Age: 81 yrs Sex: Male : 1940 Arrival Date: 08/31/2021 Time: 01:23 Bed 6 Private MD: Zuly Jones C Diagnosis: Acute cystitis;Acute cystitis with hematuria;Weakness;Type 2 diabetes mellitus with hyperglycemia Presentation: 08/31 01:37 Chief complaint: Patient states: Blood in urine that began a few hours ago with pain lp1 with urination, generalized weakness and nausea; Denies fever. Coronavirus screen: At this time, the client does not indicate any symptoms associated with coronavirus-19. Ebola Screen: No symptoms or risks identified at this time. Risk Assessment: Do you want to hurt yourself or someone else? Patient reports no desire to harm self or others. Onset of symptoms was August 31, 2021. 01:37 Method Of Arrival: Wheelchair lp1 01:37 Acuity: JIMY 3 lp1 02:13 Initial Sepsis Screen: Does the patient meet any 2 criteria? No. Patient's initial kd3 sepsis screen is negative. Does the patient have a suspected source of infection? No. Patient's initial sepsis screen is negative. Historical: - Allergies: 01:41 No Known Allergies; lp1 - Home Meds: 01:41 metformin 500 mg Oral Tb24 1 tab once daily [Active]; levothyroxine 112 mcg oral tab lp1 once daily [Active]; duloxetine 20 mg Oral cpDR 1 cap daily [Active]; aspirin 81 mg Oral TbEC 1 tab once daily [Active]; metoprolol tartrate 25 mg Oral tab 1 tab 2 times per day [Active]; amlodipine 5 mg tab 1 tab once daily [Active]; - PMHx: 01:41 Dementia; Diabetes - NIDDM; Hypertension; Hypothyroidism; Subdural frontal bleed; lp1 throat cancer; - PSHx: 01:41 Heart surgery; Tonsillectomy; lp1 - Immunization history:: Adult Immunizations up to date. - Social history:: Smoking status: Patient denies any tobacco usage or history of. Screenin:12 Abuse screen: Denies threats or abuse. Denies injuries from another. Nutritional kd3 screening: No deficits noted. Tuberculosis screening: No symptoms or risk factors identified. Fall Risk None identified. Assessment: 02:11 General: Appears in no apparent distress. Behavior is calm, cooperative. Pain: kd3 Complains of pain in suprapubic area. Neuro: Level of Consciousness is awake, alert, obeys commands, Oriented to person, place, time, situation. Cardiovascular: Patient's skin is warm and dry. Respiratory: Airway is patent Trachea midline Respiratory effort is even, unlabored. Vital Signs: 01:37 Weight 102.06 kg (R); Height 5 ft. 7 in. (170.18 cm); lp1 02:12 BP 147 / 85; Pulse 81; Resp 18; Temp 98.3; Pulse Ox 98% on R/A; Weight 105.23 kg; kd3 Height 5 ft. 8 in. (172.72 cm); Pain 0/10; 02:12 Body Mass Index 35.28 (105.23 kg, 172.72 cm) kd3 ED Course: 01:23 Patient arrived in ED. as 01:23 Zuly Jones MD is Private Physician. as 01:30 Gonzales Brian MD is Attending Physician. sylvia 01:30 German Murphy, MORRIS is Primary Nurse. as6 01:40 Triage completed. lp1 02:12 Patient has correct armband on for positive identification. kd3 02:12 No provider procedures requiring assistance completed. kd3 02:13 Arm band placed on right wrist. kd3 02:50 Inserted saline lock: 20 gauge in right forearm, using aseptic technique. Blood kd3 collected. 03:02 XRAY Chest (1 view) In Process Unspecified. EDMS 03:02 Zuly Jones MD is Hospitalizing Provider. sylvia 03:04 Stone Protocol In Process Unspecified. EDMS 05:38 Patient admitted, IV remains in place. kd3 Administered Medications: 02:50 Drug: NS 0.9% 1000 ml Route: IV; Rate: 1 bolus; Site: right forearm; kd3 04:56 Follow up: Response: No adverse reaction; IV Status: Completed infusion kd3 02:50 Drug: Meropenem 1 grams Route: IV; Rate: per protocol; Site: right forearm; kd3 04:56 Follow up: Response: No adverse reaction; IV Status: Completed infusion kd3 Medication: 01:42 VIS not applicable for this client. lp1 Outcome: 03:13 Decision to Hospitalize by Provider. sylvia 05:38 Admitted to Med/surg accompanied by tech. kd3 05:38 Condition: stable 05:38 Discharge instructions given to patient, family, Instructed on the need for admit, Demonstrated understanding of instructions. 05:38 Patient left the ED. kd3 Signatures: Dispatcher [employer] EDMS Gonzales Brian MD MD cha Martinez, Amelia as Pena, Laura, MORRIS RN lp1 German Murphy RN RN as6 Giuliana Gagnon RN RN kd3
[2021-08-31 03:20] LABS: Absolute Lymphocytes (CBC) 0.8 K/uL (0.7-4.9); Hematocrit 44.6 % (39.6-49.0); Lymphocytes % 5.6 % (15.3-44.8); MCV 92.3 fL (80-100); MPV 9.2 fL (7.6-11.3); RBC Red Blood Cell Count 4.83 M/uL (4.33-5.43)
[2021-08-31 03:26] LABS: Protime INR 1.26
[2021-08-31 03:38] LABS: Albumin 3.5 g/dL (3.4-5.0); Bilirubin Direct 0.2 mg/dL (0-0.2); Magnesium 1.8 mg/dL (1.8-2.4); Potassium 3.7 mmol/L (3.5-5.1); Protein, Total 7.7 g/dL (6.4-8.2); Troponin High Sensitivity 11.1 pg/mL (<58.9)
[2021-08-31] MEDS ORDERED: MORPHINE 2 MG/ML SYR IV PRN (06:04)
[2021-08-31] MEDS ORDERED: ONDANSETRON 4 MG/2 ML VIAL IV PRN (06:04)
[2021-08-31] MEDS: NA CHLORIDE 0.9% 1,000 ML IV SCH ×2 (06:20→15:25)
[2021-08-31 06:55] VITALS: BMI 35.2
[2021-08-31] MEDS: FAMOTIDINE 20 MG/2 ML VIAL IV SCH ×2 (09:17→20:31)
[2021-08-31] MEDS: ACETAMINOPHEN 325 MG TABLET PO PRN (11:18)
--- NOTE | 2021-08-31 12:47 | RAD REPORT ---
EXAM DESCRIPTION: Chest Single View 08/31/2021 3:24 AM CDT CLINICAL HISTORY: 81 years, Male, dysuria COMPARISON: None. FINDINGS: Single view of the chest was obtained portable. No prior films are available for compariso n. Sternotomy wires and pericardial clips correspond to appears CABG. The cardiomediastinal silhouett e demonstrate to be unremarkable. The heart is not enlarged. The thoracic aorta demonstrate intimal calcification. The pulmonary vasculature is normal menstruation. Costophrenic angles are sharp. No areas of consolidation or masses are seen. The rest of the soft tissue and bony structures demonst rate to be unremarkable. IMPRESSION: No acute cardiopulmonary disease seen. Status post CABG. Electronically signed by: Edson Mancilla MD 08/31/2021 3:24 AM CDT Due to temporary technical issues with the PACS/Fluency reporting system, reports are being signed by the in house radiologist without review as a courtesy to ensure prompt reporting. The interpreting r adiologist is fully responsible for the content of the report.
--- NOTE | 2021-08-31 12:51 | RAD REPORT ---
EXAM DESCRIPTION: CT Abdomen and Pelvis COMPARISON: None. CLINICAL HISTORY: [facility] hematuria TECHNIQUE: CT of the abdomen and pelvis was acquired without IV contrast material. Coronal and sag ittal reconstructions were obtained. Automated exposure control was utilized on this examination as a dose lowering technique. FINDINGS: Lung bases: Clear. *Evaluation of solid organs is limited due to lack of IV contrast. Liver: Normal. Gallbladder and biliary: Cholelithiasis. Unremarkable biliary tree. Pancreas: Fatty infiltration. Spleen: Normal. Adrenal glands: Normal adrenal glands. Kidneys: Punctate nonobstructing left renal calculi. Stomach and Small Bowel: The stomach and small bowel are normal. Urinary bladder: Bladder wall thickening. Prostate/Male Urogenital: Normal. Colon and Appendix: The colon is unremarkable. No evidence of appendicitis. Retroperitoneum and lymph nodes: Normal. Vascular: Severe multivessel atherosclerosis. Infrarenal abdominal aortic aneurysm measures 2.8 cm. Peritoneal cavity: No ascites or free air. Musculoskeletal and soft tissues: 4.8 cm fat and bowel containing right inguinal hernia. Lumbar spond ylosis is present. Chronic right L5 pars defect. Left hip arthroplasty. No aggressive bone lesions. No compression fracture. IMPRESSION: 1. Bladder wall thickening is suggestive of cystitis. 2. Nonobstructing punctate left renal calculus. 3. Cholelithiasis. 4. Severe atherosclerosis with 2.8 cm infrarenal abdominal aortic aneurysm. Recommend follow-up every five years. 5. Moderate-sized fat and bowel containing right inguinal hernia. No evidence of bowel obstruction. Electronically signed by: Kai Denise MD 08/31/2021 3:48 AM CDT Due to temporary technical issues with the PACS/Fluency reporting system, reports are being signed by the in house radiologist without review as a courtesy to ensure prompt reporting. The interpreting r adiologist is fully responsible for the content of the report.
[2021-08-31] MEDS: Meropenem 1,000 MG in NA CHLORIDE 0.9% 100 ML IV SCH (13:56)
[2021-08-31] MEDS ORDERED: GLUCAGON 1 MG/VIAL IM PRN (16:49)
[2021-08-31] MEDS ORDERED: D50W 25 GM/50 ML SYRINGE IV PRN (16:49)
[2021-08-31] MEDS ORDERED: POTASSIUM CL SA 10 MEQ TAB PO ONE (17:55)
[2021-08-31] MEDS ORDERED: MAGNESIUM SULFATE 1 gm IVPB 1 GM/100 ML BAG IV ONE (17:55)
[2021-08-31] MEDS: METOPROLOL TAR 25 MG TAB PO SCH (20:31)
[2021-08-31] MEDS: DOCUSATE NA/SENNA CONC 1 TAB PO SCH (20:31)
[2021-08-31] MEDS: INSULIN -REGULAR HUMAN 50 UNIT/0.5 ML ML SQ SCH (20:32)
--- NOTE | 2021-09-01 02:04 | HP ---
Date of Admission: 08/31/2021 Chief Complaint: Chills, burning on urination and blood in urine. History Of Present Illness: This is an 81-year-old pleasant male patient who was doing fine in his normal usual state of health until yesterday. He started to have burning sensation on urination with urinary frequency and last night started to have some bright red blood with some blood clots in the urine. With this, he came into the emergency room, denied any abdominal pain. He had some nausea, but no vomiting. After he was evaluated, he was admitted to the hospital. I saw him this morning. His was present with him at bedside. Allergies: NO ALLERGIES. Medications: List reviewed. Review of Systems: Genitourinary: As mentioned above. GI: As mentioned above. Constitutional: As mentioned above. All other systems reviewed and negative. Past Medical History: Significant for aortic stenosis; coronary artery disease; hypertension; paroxysmal atrial fibrillation; type 2 diabetes mellitus; hypothyroidism, which is post irradiation due to treatment of thyroid cancer; mixed hyperlipidemia; diverticulosis; osteoarthritis at multiple sites; depression; allergic rhinitis. Past Surgical History: Significant for hip replacement surgery on October 01, 2017, prior to that had hernia repair and tonsillectomy and had aortic valve replacement surgery, which is a bioprosthetic valve and coronary artery bypass surgery done in 2019. Family History: Significant for melanoma, coronary artery disease, hypertension, diabetes. Social History: Negative for alcohol use. Prior history of smoking, not at present time. Physical Examination: Vital Signs: Temperature 97.5, pulse 89, respiratory rate 19, blood pressure 132/81, oxygen saturation 94%. Height 5 feet 8 inches, weight 232 pounds. General: Awake, alert, oriented, not in distress. HEENT: Head atraumatic, normocephalic. Conjunctivae nonerythematous. Sclerae white. Mouth, no thrush or edema noted. Ears/Nose, no mass, lesion, discharge noted. Neck: Supple. No JVD, lymph nodes, bruit, thyromegaly noted. Lungs: Bilateral good equal air entry. Clear to auscultation. No rhonchi. No rales. Heart: Normal heart sounds, no murmur or gallop. Abdomen: Soft, bowel sounds normal. No guarding, rigidity, tenderness, mass, hepatosplenomegaly, distention, or bruit noted. Extremities: No leg edema. No calf tenderness. Skin: No rash, ulcer, cellulitis. Lymphatics: No lymph node enlargement in neck, supraclavicular, infraclavicular region. Neuro: No focal neurological deficit. Chest: Unremarkable. External Genitalia: Deferred. Rectal: Deferred. Laboratory Data: White count 13.6, hemoglobin 15.1, platelets 160. Sodium 135, potassium 3.7, chloride 104, bicarb 23, BUN 15, creatinine 1.27, glucose 175. Liver function tests unremarkable. ProBNP 1775. Procalcitonin less than 0.05. Urinalysis; 2+ ketones, 3+ blood, nitrite positive, leukocyte esterase 3+, protein 3+. COVID-19 test negative. Chest x-ray, no acute cardiopulmonary changes noted. CT scan of the abdomen per kidney stone protocol, no evidence of any acute or emergent finding, presence of some bladder wall thickening consistent with urinary tract infection. No evidence of any obstructive uropathy. Impression: 1. Urinary tract infection. 2. Hematuria, gross. 3. Coronary artery disease. 4. Aortic stenosis, status post bioprosthetic aortic valve. 5. Hyperlipidemia. 6. Coronary artery disease. 7. Paroxysmal atrial fibrillation. 8. Thyroid cancer. 9. Mixed hyperlipidemia. 10. Diverticulosis. 11. Osteoarthritis, multiple sites. 12. Depression. 13. Allergic rhinitis. Plan: Admit patient to hospital for further evaluation of this problem. The patient is appropriate for inpatient and is expected to spend 2 midnights in hospital. Patient is appropriate for inpatient and is expected to spend 2 midnights in the hospital. We will continue home medications per order. DVT prophylaxis will be given per order. Continue meropenem, which was started in emergency room. Ambulation was encouraged. I will see him tomorrow for followup, possible discharge to go home day after tomorrow once I have culture results available. NIKI/MODL Voice ID: [id number] MTDD
[2021-09-01] MEDS: Meropenem 1,000 MG in NA CHLORIDE 0.9% 100 ML IV SCH ×2 (02:12→16:39)
[2021-09-01] MEDS: NA CHLORIDE 0.9% 1,000 ML IV SCH (02:13)
[2021-09-01] MEDS: LEVOTHYROXINE SOD 0.112 MG TAB PO SCH (06:11)
[2021-09-01 06:46] LABS: Absolute Lymphocytes (CBC) 1.3 K/uL (0.7-4.9); Hematocrit 42.4 % (39.6-49.0); Lymphocytes % 10.2 % (15.3-44.8); MCV 91.3 fL (80-100); MPV 8.8 fL (7.6-11.3); RBC Red Blood Cell Count 4.65 M/uL (4.33-5.43)
[2021-09-01 06:59] LABS: Magnesium 2.2 mg/dL (1.8-2.4); Potassium 3.6 mmol/L (3.5-5.1)
[2021-09-01] MEDS: INSULIN -REGULAR HUMAN 50 UNIT/0.5 ML ML SQ SCH ×4 (07:30→21:00)
[2021-09-01] MEDS ORDERED: AMLODIPINE 5 MG TAB PO SCH (09:00)
[2021-09-01] MEDS: METFORMIN HCL 500 MG TAB PO SCH (09:09)
[2021-09-01] MEDS: DULOXETINE 20 MG CAP PO SCH (09:11)
[2021-09-01] MEDS: DOCUSATE NA/SENNA CONC 1 TAB PO SCH ×2 (09:11→21:38)
[2021-09-01] MEDS: FAMOTIDINE 20 MG/2 ML VIAL IV SCH ×2 (09:12→21:39)
[2021-09-01] MEDS: METOPROLOL TAR 25 MG TAB PO SCH ×2 (09:12→21:39)
--- NOTE | 2021-09-01 16:46 | PN ---
Date of Progress Note: 09/01/2021 Subjective: Patient was seen this morning for followup. No new complaints, problems reported by patient. He was lying in bed, not in distress. Denies any abdominal pain. No vomiting. No dysuria. No hematuria. Objective: Vital Signs: Reviewed. Blood pressure, this morning, is 173/97, temperature 98.6, pulse 86. HEENT: Unremarkable. Lungs: Clear to auscultation. Heart: Sounds normal. Abdomen: Soft. Bowel sounds normal. No guarding, rigidity, tenderness, or distention. Extremities: No leg edema. Laboratory Data: White count 12.4, hemoglobin 14.3, sodium 136, potassium 3.6, chloride 107, bicarb 23, BUN 12, creatinine 0.98, glucose 112, magnesium 2.2. Urine culture growing gram-negative rods. Blood culture remains negative. Impression: 1. Urinary tract infection. 2. Gross hematuria secondary to above. 3. Hypertension. 4. Coronary artery disease. Plan: We will go ahead and continue current medications. Continue current antibiotics. Discontinue IV fluid. Ambulation was encouraged and final report on the urine culture hopefully should be available by tomorrow and our plan is to discharge him to go home tomorrow depending on his overall condition. I have increased dose of amlodipine from 5 mg once a day to 2 times a day. Continue metoprolol per current order and other current home medications. I will see him tomorrow for followup. NIKI/MODL Voice ID: [id number] Report ID: [id number] [facility]CHIATR[facility] CENTERPrudencio
--- NOTE | 2021-09-01 17:30 | EKG ---
Test Date: 2021-08-31 Test Time: 02:30:18 Terrazzo Laborer: BEVERLY MEASUREMENT RESULTS: Intervals: Rate: 80 MA: 186 QRSD: 82 QT: 360 QTc: 415 [place]: P: 42 MA: 186 QRS: 36 T: 70 INTERPRETIVE STATEMENTS: Normal sinus rhythm Possible Left atrial enlargement Inferior infarct, age undetermined Cannot rule out Anterior infarct, age undetermined Abnormal ECG Compared to ECG 04/19/2020 12:35:58 No significant changes Electronically Signed On 09-01-21 17:28:25 CDT by Peterson Foster
[2021-09-01] MEDS ORDERED: POTASSIUM CL SA 10 MEQ TAB PO ONE (18:22)
[2021-09-01] MEDS: ACETAMINOPHEN 325 MG TABLET PO PRN (21:37)
[2021-09-01] MEDS: AMLODIPINE 5 MG TAB PO SCH (21:39)
[2021-09-02] MEDS: Meropenem 1,000 MG in NA CHLORIDE 0.9% 100 ML IV SCH (03:26)
[2021-09-02] MEDS: LEVOTHYROXINE SOD 0.112 MG TAB PO SCH (06:43)
[2021-09-02] MEDS: INSULIN -REGULAR HUMAN 50 UNIT/0.5 ML ML SQ SCH (07:30)
[2021-09-02] MEDS: DOCUSATE NA/SENNA CONC 1 TAB PO SCH (09:00)
[2021-09-02 09:11] VITALS: BP 156/67; TEMP 97.6
[2021-09-02 09:16] LABS: Potassium 3.8 mmol/L (3.5-5.1)
[2021-09-02] MEDS ORDERED: POTASSIUM CL SA 10 MEQ TAB PO ONE (10:00)
[2021-09-02] MEDS: FAMOTIDINE 20 MG/2 ML VIAL IV SCH (10:28)
[2021-09-02] MEDS: AMLODIPINE 5 MG TAB PO SCH (10:28)
[2021-09-02] MEDS: METOPROLOL TAR 25 MG TAB PO SCH (10:28)
[2021-09-02] MEDS: DULOXETINE 20 MG CAP PO SCH (10:29)
[2021-09-02] MEDS: METFORMIN HCL 500 MG TAB PO SCH (10:29)
[2021-09-02] MEDS ORDERED: levoFLOXacin 500 MG TAB PO ONE (11:00)
[2021-09-02 11:19] VITALS: O2SAT 96
--- NOTE | 2021-09-02 11:47 | DS ---
Date of Discharge: 09/02/2021 Subjective: The patient was seen this morning for followup. No new complaints or problems reported by the patient. He was lying in bed, not in distress. Denies any abdominal pain, nausea, vomiting. No dysuria. No hematuria. He is ambulating well without any problem. Objective: Vital Signs: Reviewed. HEENT: Examination unremarkable. Lungs: Clear to auscultation. Heart: Sounds normal. Abdomen: Soft. Bowel sounds normal. No guarding, rigidity, tenderness, or distention. Extremities: No leg edema. Laboratory Data: Sodium 138, potassium 3.8, chloride 109, bicarb 23, BUN 14, creatinine 0.96, glucos e 100. Upon admission, white count 13.6, hemoglobin 15.1, platelets 160. Yesterday; white count 12. 4, hemoglobin 14.3, platelets 132. Upon admission; sodium 135, potassium 3.7, chloride 104, bicarb 2 3, BUN 15, creatinine 1.27, glucose 175. Liver function tests unremarkable. Procalcitonin less than 0.05. Urine culture growing E coli and it is sensitive to multiple different antibiotics including meropenem that the patient is currently on and Cipro and Levaquin. CAT scan of the abdomen and pelvi s showing bladder wall thickening suggesting cystitis, nonobstructing left renal calculus, cholelithi asis, severe atherosclerosis with 2.8 cm infrarenal abdominal aortic aneurysm, moderate-sized fat and bowel containing inguinal hernia. No evidence of obstruction. Chest x-ray, no acute cardiopulmonar y change. Discharge Medications And Instructions: 1.Continue all prior home medications. 2.Follow up in office on , which is 09/06/2021. Call office for appointment. 3.Take Levaquin 500 mg daily for 10 days and prescription will be sent to the Pharmacy from office a nd the patient to start this medication tomorrow. Hospital Course: This is an 81-year-old very pleasant male patient, admitted to the hospital after h e came into emergency room with complaints of chills, burning on urination and blood in the urine. P cal see dictated H and P for more information. After he was evaluated in the emergency room, he wa s admitted to the hospital. His COVID-19 test was negative. His hematuria problem resolved after we started him on antibiotics. Urine culture result came back today showing E coli sensitive to curren t antibiotic that he is on as well as multiple oral antibiotics. Blood culture remained negative. O verall, his condition has improved. He is tolerating diet very well, ambulating well and today he wi ll be discharged to go home in stable condition with above-mentioned medications and instructions. Final Diagnoses: 1.Urinary tract infection. 2.Gross hematuria secondary to above. 3.Left renal stone. 4.Gallstones, asymptomatic. 5.Coronary artery disease. 6.Aortic stenosis, status post bioprosthetic aortic valve. 7.Mixed hyperlipidemia. 8.Paroxysmal atrial fibrillation. 9.Thyroid cancer. 10.Diverticulosis. 11.Osteoarthritis, multiple sites. 12.Depression. 13.Allergic rhinitis. NIKI/MODL Voice ID: [id number] Report ID: [id number]
== END 2021-09-02 11:42 | disposition home or self-care (01) | DRG 690 ==
LOC: ER 01:21 → ERHOLD 03:06 → 4TH 04:59
PROVIDERS: ADMIT Internal Medicine; ATTEND Internal Medicine
DX: N39.0 Urinary tract infection, site not specified (principal); B96.20 Unspecified Escherichia coli [E. coli] as the cause of diseases classified elsewhere; R31.0 Gross hematuria; N20.0 Calculus of kidney; K80.80 Other cholelithiasis without obstruction; I25.10 Atherosclerotic heart disease of native coronary artery without angina pectoris; I35.0 Nonrheumatic aortic (valve) stenosis; E78.2 Mixed hyperlipidemia; I48.0 Paroxysmal atrial fibrillation; K57.90 Diverticulosis of intestine, part unspecified, without perforation or abscess without bleeding; E11.9 Type 2 diabetes mellitus without complications; M15.9 Polyosteoarthritis, unspecified; F32.A Depression, unspecified; E89.0 Postprocedural hypothyroidism; J30.9 Allergic rhinitis, unspecified; Z95.2 Presence of prosthetic heart valve; Z85.850 Personal history of malignant neoplasm of thyroid; Z96.649 Presence of unspecified artificial hip joint; Z95.1 Presence of aortocoronary bypass graft; Z20.822 Contact with and (suspected) exposure to COVID-19
CPT/HCPCS: 36415; 71045; 74176; 76377; 80048; 80076; 81003; 82947; 83605; 83735; 83880; 84145; 84484; 85025; 85610; 87040; 87077; 87086; 87088; 87186; 93005; 96365; 96366; 99285; J2185; J3475; J3490; J7030; U0003

== ENCOUNTER 2022-05-07 10:53 | Observation (INO) | payer OTHER ==
--- NOTE | 2022-05-02 10:28 | RAD REPORT ---
EXAM DESCRIPTION: Gwen Damian (2 Views)05/02/2022 10:14 am CLINICAL HISTORY: Preop for knee surgery. Hypertension COMPARISON: 2021 FINDINGS: The lungs appear clear of acute infiltrate. The heart is normal size. Post surgical changes involve the chest IMPRESSION: No acute abnormalities displayed
[2022-05-02 10:32] LABS: Hematocrit 46.1 % (39.6-49.0); Lymphocytes % 25.8 % (15.3-44.8); MCV 94.6 fL (80-100); MPV 8.8 fL (7.6-11.3); RBC Red Blood Cell Count 4.87 M/uL (4.33-5.43)
[2022-05-02 10:34] LABS: Specific Gravity 1.021 (1.005-1.030); Urine Bilirubin NEGATIVE (Negative); Urine Blood Negative (Negative); Urine Clarity Clear (Clear); Urine Color Light-Yellow (Yellow); Urine Glucose NEGATIVE (Negative); Urine Protein NEGATIVE (Negative); Urine Urobilinogen Normal (Normal); Urine pH 5.5 (5.0-7.0)
[2022-05-02 10:37] LABS: Protime INR 1.02
[2022-05-02 10:44] LABS: Albumin 3.4 g/dL (3.4-5.0); Bilirubin Total 0.4 mg/dL (0.2-1.0); Potassium 4.7 mmol/L (3.5-5.1); Protein, Total 7.9 g/dL (6.4-8.2)
--- NOTE | 2022-05-02 16:29 | EKG ---
Test Date: 2022-05-02 Test Time: 09:58:24 [employer] Consultant: REYES MEASUREMENT RESULTS: Intervals: Rate: 68 [place]: 190 QRSD: 90 QT: 378 QTc: 401 [place]: P: 45 [place]: 190 QRS: 48 T: 92 INTERPRETIVE STATEMENTS: Normal sinus rhythm Possible Left atrial enlargement Possible Inferior infarct, age undetermined Anterior infarct, age undetermined Abnormal ECG Compared to ECG 08/31/2021 02:30:18 No significant changes Electronically Signed On 05-02-22 16:28:44 [employer] by Peterson Foster
[2022-05-07] MEDS ORDERED: CEFAZOLIN SODIUM 2 GM/VIAL ONE (11:22)
[2022-05-07] MEDS ORDERED: CELECOXIB 100 MG CAPSULE ONE (11:22)
[2022-05-07] MEDS ORDERED: Oxycodone HCl/Acetaminophen 1 TAB TAB ONE (11:23)
[2022-05-07] MEDS ORDERED: GABAPENTIN 100 MG CAP ONE (11:23)
[2022-05-07] MEDS ORDERED: ACETAMINOPHEN 500 MG TAB ONE (11:24)
[2022-05-07] MEDS: NA CHLORIDE 0.9% 1,000 ML ONE ×5 (11:48→18:00)
[2022-05-07] MEDS ORDERED: TRANEXAMIC ACID 1,000 MG/10 ML VIAL IV ONE (12:16)
[2022-05-07] MEDS ORDERED: LIDOCAINE 1% MPF 5 ML VIAL ONE (12:52)
[2022-05-07] MEDS ORDERED: BUPIVACAINE 0.25% PF 10 ML VIAL ONE (12:52)
[2022-05-07] MEDS ORDERED: dexAMETHasone 10 MG/ML VIAL ONE ×2 (12:52→14:17)
[2022-05-07] MEDS ORDERED: EPINEPHRINE/PF 1 MG/ML AMP ONE (12:52)
[2022-05-07] MEDS ORDERED: FENTANYL CITR 100 MCG/2 ML ONE (12:52)
[2022-05-07] MEDS ORDERED: propofoL 200 MG/20 ML VIAL IV ONE ×3 (12:52→14:33)
[2022-05-07] MEDS ORDERED: HYDROMORPHONE HCL 1 MG/ML INJ ONE (13:25)
[2022-05-07] MEDS ORDERED: LIDOCAINE 2% MPF 5 ML VIAL ONE (13:47)
[2022-05-07] MEDS ORDERED: NS 0.9% VIAL 20 ML ONE (13:56)
[2022-05-07] MEDS ORDERED: KETOROLAC 30 MG/ML INJ ONE (14:17)
[2022-05-07] MEDS ORDERED: ONDANSETRON 4 MG/2 ML VIAL ONE (14:17)
[2022-05-07] MEDS ORDERED: NA CHLORIDE 0.9% 1,000 ML ONE (14:33)
[2022-05-07] MEDS ORDERED: HYDROCODONE/APAP 7.5/325 MG TAB PO PRN (16:15)
[2022-05-07] MEDS ORDERED: ONDANSETRON 4 MG/2 ML VIAL IV PRN (16:15)
[2022-05-07] MEDS ORDERED: DOCUSATE NA 100 MG CAP PO PRN (16:15)
--- NOTE | 2022-05-07 16:22 | P.BOP ---
Preoperative diagnosis: right knee arthritis Postoperative diagnosis: same Primary procedure: right total knee Estimated blood loss: 100 Anesthesia: General Transferred to: Recovery Room Condition: Good
[2022-05-07 17:13] VITALS: O2SAT 96
--- OUTSIDE RECORDS SUMMARY | 2022-05-07 17:37 | XMS REPORT | Continuity of Care Document ---
:1940 Author Organization [facility] t Address [address] [place] [address] Care Team Providers Name Role Phone EDIS MAUDE Booth Primary Care Physician Unavailable CARLOS BHAT Attending Clinician STAN Bustamante Attending Clinician Unavailable Jaycob Worley Attending Clinician SHANE BLAS Attending Clinician Unavailable SHINE TALAVERA Attending Clinician Unavailable CARLOS BHAT Admitting Clinician STAN Bustamante Admitting Clinician Unavailable GAGAN VARELA Admitting Clinician Unavailable SHINE TALAVERA Admitting Clinician Unavailable Payers Payer Name Policy Type Policy Number Effective Date Expiration Date Juana willams [employer]ETNA MEDICARE HMO [id number] 2018 POS PPO 00:00:00 Problems Condition Condition Condition Status Onset Resolution Last Treating Co mments Source Name Details Category Date Date Treatment Clinician Date [place] [facility] HLD HLD Disease Active [facility] (hyperlipi (hyperlipi 2-11 Eyn kes demia) demia) 00:00: Medical 00 Center Coagulopat Coagulopat Disease Active [facility] SDH SDH Disease Active [facility] (subdural (subdural 2-10 [facility] hematoma) hematoma) 00:00: Medi tenzin 00 Center S/P AVR S/P AVR Disease Active [facility] (aortic (aortic 07-21 [facility] valve valve 00:00: Medical replacemen replacemen 00 Ce nter t) t) S/P CABG x S/P CABG x Disease Active [facility] Myoclonus Myoclonus Problem Active 2021-11-18 Memoria (finding) (finding) 07-09 21:55:35 l Active 00:00: [place] 07/09/2016 00 Problem 11/18/2021 [facility] Amnesia Amnesia Problem Active 2021-11-18 Me moria (finding) (finding) 07-26 21:55:35 l Active 00:00: [place]ard 07/27/2015 00 Problem 11/18/2021 [facility] DM DM Disease Active [facility] (diabetes (diabetes Luke s mellitus) mellitus) [facility] Coronary Coronary Disease Active [facility] Hypertensi Hypertensi Disease Active [facility] on [facility] Aortic Aortic Disease Active [facility] stenosis stenosis [facility] Atrial Atrial Disease Active [facility] fibrillati fibrillati Yen kes on [facility] [place] Diabetes Diabetes Problem Active 2021-11-18 Memoria mellitus mellitus 21:55:35 l type 2 type 2 [facility] (disorder) (disorder) Active Problem 11/18/2021 [facility] Hypothyroi Hypothyro Problem Active 2021-11-18 Memoria dism idism 21:55:35 l (disorder) (disorder) He rmann Active Problem 11/18/2021 [facility] Primary Primary Problem Active 2021-11-18 Me 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, type, senile senile onset onset (disorder) (disorder) Active Problem 11/18/2021 [facility] Syncope Syncope Problem Active 2021-11-18 Me moria (disorder) (disorder) 21:55:35 l Active [place] Problem 11/18/2021 [facility] Allergies, Adverse Reactions, Alerts Allergy Allergy Status Severity Reaction(s) Onset Inactive Treating Comm ents Source Name Type Date Date Clinician No Known No Known Active Memori a Medicati Medicati l on on [place]ard Allergie Allergie s s NO KNOWN Allergy Active [facility] ALLERGIE S Family History Family Member Diagnosis Comments Start Date Stop Date Source Natural father Heart disease [facility] Natural mother Heart disease [facility] Social History Social Habit Start Date Stop Date Quantity Comments Source History SDOK [facility] Alcohol Std Drinks Medica l Center History SDOK [facility] Alcohol Binge Medical Abiel ter History [facility] Alcohol Comment Medical C enter History of tobacco Current smoker [facility] use [facility] Social History 2020-01-14 2020-01-14 [facility] 16[facility]52:28 16:52:28 Alcohol intake 2018-07-22 2018-07-[address] [facility] es 00:00:00 00:00:00 non-drinker of Medical Ce nter alcohol (finding) History [facility] 2018-07-09 2018-07-[address] [facility] Alcohol Frequency 00:00:00 00:00:00 [facility] Cigarettes smoked 2018-07-09 2018-07-[address] [facility] [address] GoSpotCheck current (pack per 00:00:00 00:00:00 Medical Center day) - Reported Cigarette 2018-07-09 2018-07-[address] [facility] [address] ARI pack-years 00:00:00 00:00:00 [facility] Tobacco use and 2018-07-09 2018-07-[address] [facility] exposure 00:00:00 00:00:00 [facility] Center Sex Assigned At [birth year] [facility] 00:00:00 00:00:00 Hospital Smoking Status Start Date Stop Date Source Tobacco smoking [facility] consumption unknown Former smoker 2018-07-09 00:00:00 2018-07-09 [facility] 00:[facility]00 Center Medications Ordered Filled Start Stop Current Ordering Indication Dosage Frequency Signature Comments Components Source Medication Medication Date Date Medication? Clinician (SIG) Name Name Karen 4 2021-0 Yes 4 mg = 1 Mem oria mg oral 08-16 tab, PO, l tablet 16:19: BID, # 60 Tolu n 00 tab, 3 Refill(s), Pharmacy: [facility] #[id number], 168.91, cm, 08/16/21 11:02:00 CDT, Height, 106.506, kg, 08/16/21 11:02:00 CDT, Weight DULoxetine Yes See Memoria 20 mg oral 5-17 Instructio l delayed 13:37: ns, TAKE 1 Herm gilbert release 00 CAPSULE BY capsule MOUTH EVERY DAY, # 90 unknown unit, 1 Refill(s), Pharmacy: [facility] STORE [id number], 175.26, cm, 07/06/20 11:00:00 CDT, Height, 103.636, kg, 07/06/20 11:00:00 CDT, Weight Lisinopril Yes 20 mg, PO, M emoria 2-24 Daily, 0 l 21:28: Refill(s) Willard 00 Amiodarone 0 Yes 200 mg, Ulises sasha 2-24 PO, BID, 0 l 21:28: Refill(s) [place] 00 atorvastati Yes 20 mg, PO, Memoria n 2-24 Daily, 0 l 21:28: Refill(s) donepezil Yes 10 mg, PO, Me moria 2-24 Daily, 0 l 21:28: Refill(s) Robin 00 Famotidine Yes 20 mg = 1 Me moria 2-24 tab, PO, l 21:28: BID, # 60 Robin 00 tab, 0 Refill(s) acetaminoph Yes 650 mg = 2 Memoria en 325 mg 2-24 tab, PO, l oral tablet 21:28: Q6H, 0 Herm gilbert 00 Refill(s) DULoxetine 0 Yes 20mg QD Take 1 [facility] (CYMBALTA) 2-19 capsule [facility] 20 MG 00:00: (20 mg Medical capsule 00 total) by Center mouth daily. levothyroxi 0 Yes 125ug Take [address] [facility] [facility] ne 2-19 tablet [facility] (SYNTHROID, 00:00: (125 mcg Me dical LEVOTHROID) 00 total) by Abiel ter 125 MCG mouth tablet Every morning on an empty stomach. lisinopriL 0 Yes 20mg QD Take 1 [facility] (PRINIVIL,Z 2-19 tablet (20 Yen kes ESTRIL) 20 00:00: mg total) Me dical MG tablet 00 by mouth Center daily. atorvastati 0 Yes 20mg QD Take [address] [facility] [facility] n (LIPITOR) 2-18 tablet (20 Yen kes 20 MG 00:00: mg total) Medical tablet 00 by mouth Center nightly. amiodarone 2020-0 Yes 200mg Q.5D Take [address] (PACERONE) 2-18 tablet [facility] 200 MG 00:00: (200 mg Medical tablet 00 total) by Center mouth 2 (two) times daily. donepeziL 0 Yes 10mg QD Take [address] [facility] (ARICEPT) 2-18 tablet (10 Luke s 10 MG 00:00: mg total) Medical tablet 00 by mouth Center daily. famotidine Yes 20mg Take 1 [facility] (PEPCID) 20 2-18 tablet (20 Yen kes MG tablet 00:00: mg total) Med ical 00 by mouth Center every 12 (twelve) hours. metoprolol 0 Yes 50mg Q.5D Take 1 [facility] tartrate 2-18 tablet (50 [facility] (LOPRESSOR) 00:00: mg total) M edical 50 MG 00 by mouth 2 Center tablet (two) times daily. senna-docus Yes 1{tbl} QD Take [address] ate 2-18 tablet by [facility]ukes (SENOKOT S) 00:00: mouth Medic al 8.6-50 mg 00 nightly. Center per tablet methyl 0 Yes 35g Apply 35 g [facility] t salicylate- 2-18 topically Tay es menthol 00:00: 3 (three) Medic al 15-10 % 00 times Center Crea daily as needed (knee and shoulder pain). metFORMIN 0 Yes 500mg Take 1 [facility] (GLUCOPHAGE 2-18 tablet [facility] ) 500 MG 00:00: (500 mg Medica l tablet 00 total) by Center mouth daily with breakfast. acetaminoph 0 Yes 325mg Take [address] [facility] [facility] en 2-18 tablet [facility] (TYLENOL) 00:00: (325 mg Medic al 325 MG 00 total) by Center tablet mouth every 6 (six) hours as needed. Memantine 2019-03 Yes 10 mg = 1 Mem oria hydrochlori 1-06 tab, PO, l de 10 MG 16:49: BID, # 180 Her valente Oral Tablet 00 tab, 3 [Namenda] Refill(s), Pharmacy: [facility] ST[facility] #[id number], 170.18, cm, 10/22/19 9:06:00 CDT, Height, 107.727, kg, 10/22/19 9:06:00 CDT, Weight DULoxetine 2019-0 Yes See Memoria 20 mg oral 9-14 Instructio l delayed 15:17: ns, TAKE 1 Herm gilbert release 00 CAPSULE BY capsule MOUTH EVERY DAY, # 90 unknown unit, 2 Refill(s), Pharmacy: [facility] STORE #[id number], 170.18, cm, 10/22/19 9:06:00 CDT, Height, 107.727, kg, 10/22/19 9:06:00 CDT, Weight Memantine Yes 5 mg = 1 Ulises sasha hydrochlori 8-14 tab, PO, l de 5 MG 14:20: BID, # 60 Tracy nn Oral Tablet 00 tab, 3 [Namenda] Refill(s), Pharmacy: [facility] #[id number], 170.18, cm, 10/22/19 9:06:00 CDT, Height, 107.727, kg, 10/22/19 9:06:00 CDT, Weight DULoxetine Yes = 1 cap, Mem oria 20 mg oral 3-16 PO, Daily, l delayed 16:01: # 90 cap, Tracy nn release 00 1 capsule Refill(s), Pharmacy: [facility] #[id number] rivaroxaban Yes 20 mg = 1 M emoria 20 MG Oral 8-14 tab, PO, l Tablet 14:43: QPM, # 30 Tolu n [Xarelto] 00 tab, 3 Refill(s) DULoxetine Yes = 1 cap, Mem oria 20 mg oral 7-24 PO, Daily, l delayed 22:16: # 90 cap, Tracy nn release 51 1 capsule Refill(s), Pharmacy: [facility] #[id number] nitroglycer 2018- Yes [facility] (NITROSTAT) 00:00: Medica l 0.4 MG SL 00 Center tablet donepezil Yes = 1 tab, Ulises sasha 10 mg oral 3-25 PO, l tablet 16:03: Bedtime, # Tracy nn 07 30 tab, Refill(s) 5, Pharmacy: [facility] #[id number] DULoxetine 2019-0 Yes = 1 cap, Mem oria 20 mg oral 3-24 PO, Daily, l delayed 21:08: # 30 Robin release 47 unknown capsule unit, Refill(s) 5, Pharmacy: [facility] #[id number] Vital Signs Vital Name Observation Time [...] 102.6 kg HEIGHT 2020-04-19 21:00:00 175.3 cm Systolic (mm Hg) 2021-08-16 15:30:00 Ulises rial Robin Diastolic (mm Hg) 2021-08-16 15:30:00 Mem orial [place] Heart Rate 2021-08-16 15:30:00 [facility] [place] Respitory Rate 2021-08-16 15:30:00 Memori al [place] Height 2021-08-16 15:30:00 168.91 cm Memorial Robin Weight 2021-08-16 15:30:00 [facility] [place] BMI Calculated 2021-08-16 15:30:00 Memori al [place] Systolic (mm Hg) 2021-02-15 16:34:00 Ulises rial Robin Diastolic (mm Hg) 2021-02-15 16:34:00 Mem orial Robin Heart Rate 2021-02-15 16:34:00 [facility] Robin Respitory Rate 2021-02-15 16:34:00 Memori al [place] Height 2021-02-15 16:34:00 170.18 cm [facility] Robin Weight 2021-02-15 16:34:00 [facility] [place] BMI Calculated 2021-02-15 16:34:00 Memori al [place] Systolic (mm Hg) 2020-10-19 15:38:00 Ulises rial Robin Diastolic (mm Hg) 2020-10-19 15:38:00 Mem orial Robin Heart Rate 2020-10-19 15:38:00 [facility] Robin Respitory Rate 2020-10-19 15:38:00 Memori al [place] Height 2020-10-19 15:38:00 167.64 cm Memorial Robin Weight 2020-10-19 15:38:00 [facility] Robin BMI Calculated 2020-10-19 15:38:00 Memori al [place] Systolic (mm Hg) 2020-08-17 15:49:00 Ulises rial Robin Diastolic (mm Hg) 2020-08-17 15:49:00 Mem orial [place] Heart Rate 2020-08-17 15:49:00 [facility] [place] Respitory Rate 2020-08-17 15:49:00 Memori al Robin Height 2020-08-17 15:49:00 175.26 cm [facility] [place] Weight 2020-08-17 15:49:00 [facility] Robin BMI Calculated 2020-08-17 15:49:00 Memori al Robin Systolic (mm Hg) 2020-07-06 16:00:00 Ulises rial Robin Diastolic (mm Hg) 2020-07-06 16:00:00 Mem orial Robin Heart Rate 2020-07-06 16:00:00 [facility] Robin Respitory Rate 2020-07-06 16:00:00 Memori al Robin Height 2020-07-06 16:00:00 175.26 cm [facility] [place] Weight 2020-07-06 16:00:00 [facility] [place] BMI Calculated 2020-07-06 16:00:00 Memori al Robin Heart Rate 2020-06-14 14:02:00 [facility] Robin Respitory Rate 2020-06-14 14:02:00 Memori al Robin Height 2020-06-14 14:02:00 175.26 cm [facility] Robin Weight 2020-06-14 14:02:00 [facility] [place] BMI Calculated 2020-06-14 14:02:00 Memori al [place] Systolic (mm Hg) 2020-06-14 14:02:00 Ulises rial Robin Diastolic (mm Hg) 2020-06-14 14:02:00 Mem orial [place]ard Systolic (mm Hg) 2020-05-03 20:50:00 Ulises rial Robin Diastolic (mm Hg) 2020-05-03 20:50:00 Mem orial [place] Heart Rate 2020-05-03 20:50:00 [facility] [place] Respitory Rate 2020-05-03 20:50:00 Memori al [place] Height 2020-05-03 20:50:00 175.26 cm Memorial Robin Weight 2020-05-03 20:50:00 [facility] [place] BMI Calculated 2020-05-03 20:50:00 Memori al [place] Systolic (mm Hg) 2020-01-14 16:41:00 Ulises rial Robin Diastolic (mm Hg) 2020-01-14 16:41:00 Mem orial Robin Heart Rate 2020-01-14 16:41:00 [facility] Robin Respitory Rate 2020-01-14 16:41:00 Memori al Robin Height 2020-01-14 16:41:00 167.64 cm [facility] Robin Weight 2020-01-14 16:41:00 [facility] [place] BMI Calculated 2020-01-14 16:41:00 Memori al [place] Systolic (mm Hg) 2019-10-22 14:06:00 Ulises rial Willard Diastolic (mm Hg) 2019-10-22 14:06:00 Mem orial [place]ard Heart Rate 2019-10-22 14:06:00 [facility] Robin Respitory Rate 2019-10-22 14:06:00 Memori al Robin Height 2019-10-22 14:06:00 170.18 cm [facility] [place] Weight 2019-10-22 14:06:00 [facility] Robin BMI Calculated 2019-10-22 14:06:00 Memori al [place] Systolic (mm Hg) 2018-10-21 14:43:00 Ulises rial Willard Diastolic (mm Hg) 2018-10-21 14:43:00 Mem orial Robin Systolic (mm Hg) 2018-10-21 14:18:00 Ulises rial Willard Diastolic (mm Hg) 2018-10-21 14:18:00 Mem orial [place] Heart Rate 2018-10-21 14:18:00 [facility] Robin Respitory Rate 2018-10-21 14:18:00 Memori al [place] Height 2018-10-21 14:18:00 170.18 cm Memorial Robin Weight 2018-10-21 14:18:00 [facility] BMI Calculated 2018-10-21 14:18:00 Memori al Robin Procedures Procedure Date / Time Performed Performing Clinician [facility] e Aortic valve replacement Denysoria l Robin and plication of ascending aorta Plan of Care Planned Activity Planned Date Details Comments Source Future Scheduled 2022-03-[address] [facility] Test 00:00:00 (12+) [code = Medical Center DEPRESSION SCREENING (12+)] Future Scheduled 2022-03-10 FALLS RISK SCREENING [facility] Test 00:00:00 [code = FALLS RISK Medical C enter SCREENING] Future Scheduled 2022-02-22 COVID-19 VACCINE (#1) [facility] Test 11:10:45 [code = COVID-19 VACCINE (#1)] Future Scheduled 2022-02-22 SHINGLES VACCINES (1 [facility] Test 11:10:45 of 2) [code = SHINGLES VACCINES (1 of 2)] Future Scheduled 2022-02-22 65+ PNEUMOCOCCAL [facility] Test 11:10:45 VACCINE (1 - PCV) [code = 65+ PNEUMOCOCCAL VACCINE (1 - PCV)] Future Scheduled 2022-02-22 INFLUENZA VACCINE [facility] Test 11:10:45 [code = INFLUENZA VACCINE] Future Scheduled 2021-11-08 INFLUENZA VACCINE (#1[facility] Test 00:00:00 [code = INFLUENZA Medical Ce nter VACCINE (#1)] Future Scheduled 2020-10-[address] [facility] Test 00:00:00 measurement Medical Center (procedure) [code = 23863650] Future Scheduled 2019-03-[address] [facility] Test 00:00:00 WELLNESS (YEAR 2 or Medical Center FIRST YEAR if no IPPE) [code = MEDICARE ANNUAL WELLNESS (YEAR 2 or FIRST YEAR if no IPPE)] Future Scheduled 1990 SHINGLES VACCINES ([address] [facility] Test 00:00:00 of 2) [code = SHINGLES Medic al Center VACCINES (1 of 2)] Future Scheduled 1959-05-16 DTAP/TDAP/TD VACCINES [facility] Test 00:00:00 (1 - Tdap) [code = Medical C enter DTAP/TDAP/TD VACCINES (1 - Tdap)] Future Scheduled [address] [facility] Test 00:00:00 Counseling and Medical Cente r Screening (12+) [code = Tobacco Cessation Counseling and Screening (12+)] Future Scheduled [address] EYE EXAM [facility] Test 00:00:00 [code = DIABETIC EYE Medical Center EXAM] Future Scheduled [address] [facility] Test 00:00:00 examination Medical Center (regime/therapy) [code = 836827902] Future Scheduled 1950 Urine screening for [facility] Test 00:00:00 protein (procedure) Medical Center [code = 385450231] Future Scheduled 1946 PNEUMOCOCCAL 65+ YRS [facility] Test 00:00:00 (1 - PCV) [code = Medical Ce nter PNEUMOCOCCAL 65+ YRS (1 - PCV)] Future Scheduled 1940 COVID-19 VACCINE (#1) [facility] Test 00:00:00 [code = COVID-[address] VACCINE (#1)] Encounters Start End Encounter Admission Attending Care Care Encounter Source Date/Time Date/Time Type Type Clinicians Facility Department ID 2020-04-21 Inpatient EL PAUL BHAT PM\\T\\R [id number] [facility] 15:40:00 CARLOS 2020-04-[address] [facility] [id number] [facility] 18:35:00 STAN 2021-11-16 2021-11-16 Ambulatory nullFlavo MNA [id number] Memoria 15:30:00 15:30:00 Pre-Reg r Neurology 17 l Abhinav Robin 2021-11-16 2021-11-16 Outpatient MHIE MHIE [id number] Memoria 10:30:00 10:30:00 17 christel Willard 2021-11-16 2021-11-16 Outpatient Brunilda MISCHER MHMISCHER [id number] 10:30:00 10:30:00 Jaycob 17 Charlie 2021-08-16 2021-08-17 Outpatient nullFlavo MNA [id number] Memoria 15:30:00 04:59:59 r Neurology 16 l Monroe Willard 2021-08-16 2021-08-16 Outpatient JACKI WorleySCHER MISCHER [id number] 10:30:00 23:59:59 Jaycob 16 Charlie 2021-08-16 2021-08-16 Outpatient MHIE MHIE [id number] Memoria 10:30:00 10:30:00 16 christel Robin 2021-02-15 2021-02-16 Outpatient nullFlavo MNA [id number] Memoria 16:30:00 05:59:59 r Neurology 15 l Monroe Robin 2021-02-15 2021-02-15 Outpatient JACKI WorleySCHER MHMISCHER [id number] 10:30:00 23:59:59 Jaycob 15 Charlie 2021-02-15 2021-02-15 Outpatient MHIE MHIE [id number] Memoria 10:30:00 10:30:00 15 christel Robin 2020-10-19 2020-10-20 Outpatient nullFlavo MNA [id number] Memoria 15:30:00 04:59:59 r Neurology 14 l Monroe Robin 2020-10-19 2020-10-19 Outpatient Krell, MHMISCHER MHMISCHER [id number] 10:30:00 23:59:59 Jaycob 14 Charlie 2020-10-19 2020-10-19 Outpatient MHIE MHIE [id number] Memoria 10:30:00 10:30:00 14 christel Kelly 2020-08-17 2020-08-18 Outpatient nullFlavo MNA [id number] Memoria 15:45:00 04:59:59 r Neurology 13 christel La Robin 2020-08-17 2020-08-17 Outpatient EMERY WorleyMISCHER MISCHER [id number] 10:45:00 23:59:59 Jaycob 13 Charlie 2020-08-17 2020-08-17 Outpatient MHIE MHIE [id number] Memoria 10:45:00 10:45:00 13 christel Kelly 2020-07-13 2020-07-13 Ambulatory nullFlavo MNA [id number] Memoria 15:30:00 15:30:00 Pre-Reg r Neurology 08 l Monroe Robin 2020-07-13 2020-07-13 Outpatient MHIE MHIE [id number] Memoria 10:30:00 10:30:00 08 christel De OliveiraRobin 2020-07-13 2020-07-13 [facility] [id number] 10:30:00 10:30:00 Jaycob 08 Charlie 2020-07-06 2020-07-07 Outpatient nullFlavo MNA [id number] Memoria 15:30:00 04:59:59 r Neurology 12 christel Monroe Robin 2020-07-06 2020-07-06 [facility] [id number] 10:30:00 23:59:59 Jaycob 12 Charlie 2020-07-06 2020-07-06 Outpatient MHIE MHIE [id number] Memoria 10:30:00 10:30:00 12 christel Robin 2020-06-15 2020-06-16 Outpatient nullFlavo MNA [id number] Memoria 18:00:00 04:59:59 r Neurology 11 l Monroe Robin 2020-06-15 2020-06-15 Outpatient JACKI WorleySCHER MHMISCHER [id number] 13:00:00 23:59:59 Jaycob 11 Charlie 2020-06-15 2020-06-15 Outpatient MHIE MHIE [id number] Memoria 13:00:00 13:00:00 11 l Willard 2020-06-14 2020-06-15 Outpatient nullFlavo MNA [id number] Memoria 14:00:00 04:59:59 r Neurology 10 l Monroe Robin 2020-06-14 2020-06-14 Outpatient JACKI WorleySCHER MISCHER [id number] 09:00:00 23:59:59 Jaycob 10 Charlie 2020-06-14 2020-06-14 Outpatient MHIE MHIE [id number] Memoria 09:00:00 09:00:00 10 l Robin 2020-05-12 2020-05-12 Outpatient HUGO BLAS, [facility] SLE [id number] SLE 00:00:00 00:00:00 SHANE 2020-05-03 2020-05-04 Outpatient nullFlavo MNA [id number] Memoria 20:30:00 05:59:59 r Neurology 09 l Monroe Robin 2020-05-03 2020-05-03 Outpatient JACKI WorleySCHER MISCHER [id number] 14:30:00 23:59:59 Jaycob 09 Charlie 2020-05-03 2020-05-03 Outpatient MHIE MHIE [id number] Memoria 14:30:00 14:30:00 09 christel Robin 2020-01-14 2020-01-15 Outpatient nullFlavo MNA [id number] Memoria 16:30:00 05:59:59 r Neurology 07 l Monroe Robin 2020-01-14 2020-01-14 Outpatient JCAKI WorleySCHER MHMISCHER [id number] 10:30:00 23:59:59 Jaycob 07 Charlie 2020-01-14 2020-01-14 Outpatient MHIE MHIE [id number] Memoria 10:30:00 10:30:00 07 christel Robin 2019-10-22 2019-10-23 Outpatient nullFlavo MNA [id number] Memoria 14:00:00 04:59:59 r Neurology 06 l Abhinav Kelly 2019-10-22 2019-10-22 Outpatient Brunilda MHMISCHER MHMISCHER [id number] 09:00:00 23:59:59 Jaycob 06 Charlie 2019-10-22 2019-10-22 Ambulatory nullFlavo MNA [id number] Memoria 14:00:00 14:00:00 Pre-Reg r Neurology 05 l Monroe Robin 2019-10-22 2019-10-22 Outpatient MHIE MHIE [id number] Memoria 09:00:00 09:00:00 06 christel Robin 2019-10-22 2019-10-22 Outpatient MHIE MHIE [id number] Memoria 09:00:00 09:00:00 05 christel Willard 2019-10-22 2019-10-22 Outpatient Brunilda MHMISCHER MHMISCHER [id number] 09:00:00 09:00:00 Jaycob 05 Charlie 2018-10-21 2018-10-22 Outpatient nullFlavo MNA [id number] Memoria 14:00:00 04:59:59 r Neurology 04 christel Abhinav Kelly 2018-10-21 2018-10-21 Outpatient Brunilda MHMISCHER MHMISCHER [id number] 09:00:00 23:59:59 Jaycob 04 Charlie 2018-10-21 2018-10-21 Outpatient MHIE MHIE [id number] Memoria 09:00:00 09:00:00 04 christel Robin 2018-08-12 2018-08-12 Outpatient [facility] [id number] SLE 00:00:00 00:00:00 SHINE 2018-07-29 2018-07-29 Ambulatory nullFlavo MNA [id number] Memoria 14:15:00 14:15:00 Pre-Reg r Neurology 03 l Abhinav Kelly 2018-07-29 2018-07-29 Outpatient MHIE MHIE [id number] Memoria 09:15:00 09:15:00 03 christel Kelly 2018-07-29 2018-07-29 Outpatient Brunilda, MHMISCHER MHMISCHER [id number] 09:15:00 09:15:00 Jaycob 03 Charlie 2018-02-04 2018-02-06 Phone nullFlavo MNA [id number] Memoria 17:54:00 05:59:59 Message r Neurology 01 l Abhinav Kelly 2018-02-04 2018-02-05 [id number] 11:54:00 23:59:59 2017-10-29 2017-10-29 Outpatient KEVIN BROWN [id number] Memoria 09:15:00 09:15:00 02 christel Kelly 2017-08-21 2017-08-21 Outpatient KEVIN BROWN [id number] Memoria 09:00:00 09:00:00 01 l Robin 2017-04-23 2017-04-23 Outpatient KEVIN BROWN [id number] Memoria 10:00:00 10:00:00 00 christel Kelly Results Test Description Test Time Test Comments Results Result Comments Source POCT-GLUCOSE METER 2020-04-28 06:37:00 Test Item Value Reference Range Interpretation Comme nts POC-GLUCOSE METER (BEAKER) 112 mg/dL 70-110 H : TESTED AT [facility] [address] [facility] (test code = 1538) [place] Caruso [place] [id number]: City Route Driver/Techni walt ID = [id number] for Antonina Rose ayden POCT-GLUCOSE [id number] 17:09:00 Test Item Value Reference Range Interpretation Comments POC-GLUCOSE METER 126 mg/dL 70-110 H : TESTED A T [facility] [address] (BEAKER) (test code CAMBRIDG E BLDG A, = 1538) [place] [address]: City Route Driver/Techni walt ID = [id number] for Bisi Andujar POCT-GLUCOSE [id number] 06:49:00 Test Item Value Reference Range Interpretation Comments POC-GLUCOSE METER 92 mg/dL 70-110 : TESTED A T [facility] [address] (BEAKER) (test code = CAMBRI DGE BLDG A, 1538) [place] [address] 0: City Route Driver/Techni walt ID = [id number] for ETHAN HOFF SARS-COV2/RT-PCR ([facility])2020-04-27 05:38:00 Test Item Value Reference Range Interpretation Comments SARS-COV2/RT-PCR (test code Negative Not Detected, Negative, = [id number]) See external report for linked test SARS-COV-2 PERFORMING LAB [facility] (test code = 9865541) Negative results do not preclude SARS-CoV-2 infection [...] of the Act.Fact Sheet for Healthcare Pro viders:https://www.Vaccibody/Documents/Xpert%20Xpress%20SARS%20CoV-2/Fact%20Sh eets/302-3802%76KUBH-DHW-6%20HEALTHCARE%20PROVIDERS%20FACT%20SHEET.pdfFact Sheet for Healthcare Patients:[email or web address]%20SARS%20CoV-2/Fact%20Sheets/[email or web address]%20SARS-COV -2%20PATIENT%20FACT%20SHEET.pdfPerforming Laboratory:[facility], [place] [address]PSFL-EDFXZNS [id number] 21:25:00 Test Item Value Reference Range Interpretation Comments POC-GLUCOSE METER 104 mg/dL 70-110 : TESTED A T [facility] 7200 (BEAKER) (test code CAM[place] E BLDG A, = 1538) [facility] 7703 0: City Route Driver/Techni walt ID = [id number] for ETHAN HOFF POCT-GLUCOSE [id number] 17:03:00 Test Item Value Reference Range Interpretation Comments POC-GLUCOSE METER 114 mg/dL 70-110 H : TESTED A T [facility] 7200 (BEAKER) (test code [place] E BLDG A, = 1538) [place] [address] 0: City Route Driver/Techni walt ID = [id number] for JATIN S, SHANNON POCT-GLUCOSE [id number] 11:05:00 Test Item Value Reference Range Interpretation Comments POC-GLUCOSE METER 132 mg/dL 70-110 H : TESTED A T [facility] 7200 (BEAKER) (test code [place] E BLDG A, = 1538) [place] [address] 0: City Route Driver/Techni walt ID = [id number] for JATIN S, SHANNON POCT-GLUCOSE [id number] 06:37:00 Test Item Value Reference Range Interpretation Comments POC-GLUCOSE METER 119 mg/dL 70-110 H : TESTED A T [facility] 7200 (BEAKER) (test code [place] E BLDG A, = 1538) [place] [address] 0: City Route Driver/Techni walt ID = [id number] for CAMF IELD, CRYSTAL POCT-GLUCOSE [id number] 20:54:00 Test Item Value Reference Range Interpretation Comments POC-GLUCOSE METER 142 mg/dL 70-110 H : TESTED A T [facility] 7200 (BEAKER) (test code [place] E BLDG A, = 1538) [place] [address] 0: City Route Driver/Techni walt ID = [id number] for CAMF IELD, CRYSTAL POCT-GLUCOSE [id number] 17:18:00 Test Item Value Reference Range Interpretation Comments POC-GLUCOSE METER 120 mg/dL 70-110 H : TESTED A T [facility] 7200 (BEAKER) (test code [place] E BLDG A, = 1538) [place] [address] 0: City Route Driver/Techni walt ID = [id number] for CEDRIC JAIME, NEO ELBA POCT-GLUCOSE [id number] 11:59:00 Test Item Value Reference Range Interpretation Comments POC-GLUCOSE METER 106 mg/dL 70-110 : TESTED A T [facility] 7200 (BEAKER) (test code [place] E BLDG A, = 1538) [place] [address] 0: City Route Driver/Techni walt ID = [id number] for CEDRIC JAIME, NEO ELBA POCT-GLUCOSE [id number] 06:29:00 Test Item Value Reference Range Interpretation Comments POC-GLUCOSE METER 113 mg/dL 70-110 H : TESTED A T [facility] 7200 (BEAKER) (test code [place] E BLDG A, = 1538) [place] [address] 0: City Route Driver/Techni walt ID = [id number] for CAMF IELD, CRYSTAL POCT-GLUCOSE [id number] 21:06:00 Test Item Value Reference Range Interpretation Comments POC-GLUCOSE METER 139 mg/dL 70-110 H : TESTED A T [facility] 7200 (BEAKER) (test code [place] E BLD[place] A, = 1538) [place] [address] 0: City Route Driver/Techni walt ID = [id number] for CAMF IELD, CRYSTAL POCT-GLUCOSE [id number] 16:51:00 Test Item Value Reference Range Interpretation Comments POC-GLUCOSE METER 128 mg/dL 70-110 H : TESTED A T [facility] 7200 (BEAKER) (test code [place] E BLD[place] A, = 1538) [place] [address] 0: City Route Driver/Techni walt ID = [id number] for KANDIS LUO POCT-GLUCOSE [id number] 11:58:00 Test Item Value Reference Range Interpretation Comments POC-GLUCOSE METER 133 mg/dL 70-110 H : TESTED A T [facility] 7200 (BEAKER) (test code [place] E BLDG A, = 1538) [place] [address] 0: City Route Driver/Techni walt ID = [id number] for FADUMO CAMPBELL POCT-GLUCOSE [id number] 06:33:00 Test Item Value Reference Range Interpretation Comments POC-GLUCOSE METER 102 mg/dL 70-110 : TESTED A T [facility] 7200 (BEAKER) (test code [place] E BLD[place] A, = 1538) [place] [address] 0: City Route Driver/Techni walt ID = [id number] for CAMF IELD, CRYSTAL BASIC METABOLIC [id number] 04:59:00 Test Item Value Reference Range Interpretation [...] NOT APPLICABLE FOR DIALYSIS PATIEN TS. POCT-GLUCOSE [id number] 20:55:00 Test Item Value Reference Range Interpretation Comments POC-GLUCOSE METER 134 mg/dL 70-110 H : TESTED A T [facility] 7200 (BEAKER) (test code [place] E BLD[place] A, = 1538) [place] [address] 0: City Route Driver/Techni walt ID = [id number] for CAMF IELD, CRYSTAL POCT-GLUCOSE [id number] 16:44:00 Test Item Value Reference Range Interpretation Comments POC-GLUCOSE METER 137 mg/dL 70-110 H : TESTED A T [facility] 7200 (BEAKER) (test code [place] E BLDG A, = 1538) [place] [address] 0: City Route Driver/Techni walt ID = [id number] for ORIJOLA-SABADO, THORNE POCT-GLUCOSE [id number] 11:49:00 Test Item Value Reference Range Interpretation Comments POC-GLUCOSE METER 102 mg/dL 70-110 : TESTED A T [facility] 7200 (BEAKER) (test code [place] E BLDG A, = 1538) [place] [address] 0: City Route Driver/Techni walt ID = [id number] for ORIJOLA-SABADO, THORNE POCT-GLUCOSE [id number] 06:35:00 Test Item Value Reference Range Interpretation Comments POC-GLUCOSE METER 140 mg/dL 70-110 H : TESTED A T [facility] 7200 (BEAKER) (test code [place] E BLDG A, = 1538) [place] [address] 0: City Route Driver/Techni walt ID = [id number] for CAMF IELD, CRYSTAL POCT-GLUCOSE [id number] 21:02:00 Test Item Value Reference Range Interpretation Comments POC-GLUCOSE METER 132 mg/dL 70-110 H : TESTED A T [facility] 7200 (BEAKER) (test code [place] E BLDG A, = 1538) [place] [address] 0: City Route Driver/Techni walt ID = [id number] for CAMF IELD, CRYSTAL POCT-GLUCOSE [id number] 16:57:00 Test Item Value Reference Range Interpretation Comments POC-GLUCOSE METER 119 mg/dL 70-110 H : TESTED A T [facility] 7200 (BEAKER) (test code [place] E BLDG A, = 1538) [place] [address] 0: City Route Driver/Techni walt ID = [id number] for ONWU KA, AMAUCHE POCT-GLUCOSE [id number] 12:14:00 Test Item Value Reference Range Interpretation Comments POC-GLUCOSE METER 98 mg/dL 70-110 : TESTED A T [facility] 7200 (BEAKER) (test code = CAMBRI DGE BLDG A, 1538) [place] [address] 0: City Route Driver/Techni walt ID = [id number] for ONWU KA, AMAUCHE VITAMIN B12 AND [id number] 07:28:00 Test Item Value Reference Range Interpretation Comments VITAMIN B12 368 pg/mL 211-911 (BEAKER) (test code = 774) [facility] (BEAKER) 10.78 ng/mL See_Comment [Automated message] (test code = 362) The system which generated this result transmitted ref erence range: >=5.40. The reference range was not used to interpr et this result as normal/abnormal . COMPREHENSIVE METABOLIC [id number] 06:55:00 Test Item Value Reference Range Interpretation [...] S NOT APPLICABLE FOR DIALYSIS PATIEN TS. [id number] 06:55:00 Test Item Value Reference Range Interpretation Comments PHOSPHORUS (BEAKER) 4.0 mg/dL 2.3-4.7 Specimen slightly (test code = 604) hemolyzed POCT-GLUCOSE [id number] 06:42:00 Test Item Value Reference Range Interpretation Comments POC-GLUCOSE METER 124 mg/dL 70-110 H : TESTED A T [facility] 7200 (BEAKER) (test code CAM[place] E BLDG A, = 1538) [place] 7703 0: City Route Driver/Techni walt ID = [id number] for CORINA MOSLEY (V), CELSO CBC W/PLT COUNT & AUTO [id number] 06:37:00 Test Item Value Reference Range Interpretation [...] PERCENT (BEAKER) (test code = 2801) POCT-GLUCOSE [id number] 21:15:00 Test Item Value Reference Range Interpretation Comments POC-GLUCOSE METER 149 mg/dL 70-110 H : TESTED A T [facility] 7200 (BEAKER) (test code SYED ELIAS A, = 1538) [facility] 7703 0: City Route Driver/Techni walt ID = [id number] for MYKELN DOMITILAO (V), CELSO POCT-GLUCOSE [id number] 17:17:00 Test Item Value Reference Range Interpretation Comments POC-GLUCOSE METER 143 mg/dL 70-110 H : TESTED A T [facility] 7200 (BEAKER) (test code [place] E BLDG A, = 1538) [place] [id number] 0: City Route Driver/Techni walt ID = [id number] for XAVI FERNANDO, LIBORIO COMPREHENSIVE METABOLIC [id number] 07:44:00 Test Item Value Reference Range Interpretation [...] S NOT APPLICABLE FOR DIALYSIS PATIEN TS. City Route Driver ID - PIAYA [id number] 07:44:00 Test Item Value Reference Range Interpretation Comments MAGNESIUM (BEAKER) (test code = 2.1 mg/dL 1.6-2.6 627) City Route Driver ID - HEATHER [id number] 07:44:00 Test Item Value Reference Range Interpretation Comments PHOSPHORUS (BEAKER) (test code = 3.2 mg/dL 2.3-4.7 604) City Route Driver ID - HEATHER LCBC W/PLT COUNT & AUTO [id number] 07:00:00 Test Item Value Reference Range Interpretation [...] PERCENT (BEAKER) (test code = 2801) SARS-COV2/RT-PCR ([facility])2020-04-21 00:16:00 Test Item Value Reference Range Interpretation Comments SARS-COV2/RT-PCR (test Negative Not Detected, Negative, code = 8419467) See external report for linked test SARS-COV-2 PERFORMING LAB [facility] (test code = 3263262) Negative result for this test determines that SARS-CoV-2 RNA was not present in the specimen above the Limit of Detection (LOD). However, Negative results do not preclude SARS-CoV-2 infection and should not be used as the sole basis for treatment or patient management decisions. Negative results must be [...] justifying the authorization of the emergency use ofin vitro diagnostic tests for detection and/or diagnosis of COVID-19 is terminated under Section 564(b)(2) of the Act or the EUA is revoked under Section 564(g) of the Act.Fact Sheet for Healthcare Prov iders:https://www.WorkingPoint/sites/default/files/product/documents/Fact_Sheet_HC _Ycopxpxbc_Wqqt_OUGY-AtD-9.pdfFact Sheet for Healthcare Patients:https://www.WorkingPoint/sites/default/files/product/docume nts/Jozc_Gfzgu_Kyykiwhs_Limn_RWCN-GuG-4.pdfPerforming Laboratory:[facility], [place] [address]QS, BRAIN, WITHOUT [id number] 18:05:00Unlisted Reason for Exam - Click Yes and Enter Reason Below->NoKA[facility]ER [facility] : 1940 Sex: MFINAL REPORT MR, BRAIN, WITHOUT CONTRAST INDICATION: Subdural hematoma TECHNIQUE: Multiplanar, multisequence MR imaging of the brain without intravenous contrast. COMPARISON: CT 04/20/2020 FINDINGS: Intracranial: T1 and T2 isointense acute subdural hematoma along the right convexitymeasures up to 7 mm in thickness, not [...] of sinusitis. Mastoids are clear. Orbits: Globes a re intact. Calvarium \\T\\ scalp: Unremarkable. IMPRESSION:Unchanged acute subdural hematoma along theright convexity, and small volume subarachnoid hemorrhage layering within the right sylvian fissure,without significant mass effect. Signed: Joy Machado Verified Date/Time: 04/20/2020 18:05:36 CT BRAIN WITHOUT IV CONTRAST - [id number] 08:18:00Unlisted Reason for Exam - Click Yes and Enter Reason Below->No [facility] : 1940 Sex: MFINAL REPORT CT BRAIN WITHOUT IV CONTRAST - PORTABLE CLINICAL INDICATION: Subdural hemorrhage, follow-up COMPARISON: None TECHNIQUE: Noncontrast axial CT imaging of the brain and skull. DOSE REDUCTION: Dose modulation, iterative reconstruction, and/or weight-based adjustment of themA/kV was utilized to reduce the radiation dose [...] is recommended for further characterization. Signed: Elsie Lealeport Verified Date/Time: 04/20/2020 08:18:01 Reading Location: [address] Neuro Reading Room GLOBIN [id number] 07:47:00 Test Item Value Reference Range Interpretation Comments HEMOGLOBIN A1C (BEAKER) (test code = 6.7 % 4.3-6.1 H 368) [id number] 05:43:00 Test Item Value Reference Range Interpretation Comments PARTIAL THROMBOPLASTIN TIME 37.3 seconds 22.5-36.0 H (BEAKER) (test code = 760) PROTHROMBIN [id number] 05:42:00 Test Item Value Reference Range Interpretation Comments PROTIME (BEAKER) 15.9 seconds 11.9-14.2 H (test code = 759) INR (BEAKER) (test 1.31 See_Comment [Automat ed message] code = 370) The system [employer] generated this result transmitted ref erence range: <=5.90. The reference range was not used to int erpret this result as normal/abnormal . Effective 08/05/2018: PT Reference Range ChangeNew: 11.9-14.2 Previous: 11.7- 14.7RECOMMENDED COUMADIN/WARFARIN INR THERAPY RANGESSTANDARD DOSE: 2.0-3.0 Includes: PROPHYLAXIS for venous thrombosis, systemic embolization; TREATMENT for venous thrombosis and/or pulmonary embolus.HIGH RISK: Target INR is 2.5-3.5 for patients wiht mechanical heart valves.TSH/FREE T4 IF [id number] 05:39:00 Test Item Value Reference Range Interpretation Comments THYROID STIMULATING HORMONE 0.510 uIU/mL 0.350-4.940 (BEAKER) (test code = 772) City Route Driver ID - ADELAIDE MCOMPREHENSIVE METABOLIC [id number] 05:23:00 Test Item Value Reference Range Interpretation [...] S NOT APPLICABLE FOR DIALYSIS PATIEN TS. City Route Driver ID - [id number] 05:23:00 Test Item Value Reference Range Interpretation Comments MAGNESIUM (BEAKER) (test code = 1.9 mg/dL 1.6-2.6 627) City Route Driver ID - [id number] 05:23:00 Test Item Value Reference Range Interpretation Comments PHOSPHORUS (BEAKER) (test code = 2.9 mg/dL 2.3-4.7 604) City Route Driver ID - SMLIPID [id number] 05:23:00 Test Item Value Reference Range Interpretation Comments TRIGLYCERIDES (BEAKER) (test code = 120 mg/dL 540) CHOLESTEROL (BEAKER) (test code = 116 mg/dL 631) HDL CHOLESTEROL (BEAKER) (test code 31 mg/dL = 976) LDL CHOLESTEROL CALCULATED (BEAKER) 61 mg/dL (test code = 633) Triglyceride Reference Range: Low Risk <150 Borderline 150-199 High Risk 200- 499 Very High Risk >=500Cholesterol Reference Range: Low Risk <200 Borderline 200-239 High Risk >240HDL Cholesterol Reference Range: Low Risk >=60 High Risk <40LDL Cholesterol Reference Range: Optimal <100 Near Optimal 100-129 Borderline 130-159 High 160-189 Very High >=190 City Route Driver ID - SMCBC W/PLT COUNT & AUTO [id number] 05:04:00 Test Item Value Reference Range Interpretation [...] PERCENT (BEAKER) (test code = 2801) POCT-GLUCOSE [id number] 16:36:00 Test Item Value Reference Range Interpretation Comments POC-GLUCOSE METER 108 mg/dL 70-110 TESTED AT [facility] 6720 (BEAKER) (test code = [address] [place] 1538) [address] BASIC METABOLIC [id number] 08:25:00 Test Item Value Reference Range Interpretation [...] PATIEN TS. CBC W/PLT COUNT & AUTO [id number] 05:31:00 Test Item Value Reference Range Interpretation [...] PERCENT (BEAKER) (test code = 2801) POCT-GLUCOSE [id number] 23:32:00 Test Item Value Reference Range Interpretation Comments POC-GLUCOSE METER 95 mg/dL 70-110 TESTED AT [place] [address] ([facility] (test code = [facility] [address] 1538) POCT-GLUCOSE [id number] 17:21:00 Test Item Value Reference Range Interpretation Comments POC-GLUCOSE METER 104 mg/dL 70-110 TESTED AT [place] [address] ([facility]) (test code = [facility] 1538) [address] [id number] 10:35:00 Test Item Value Reference Range Interpretation Comments MAGNESIUM (BEAKER) (test code = 1.9 mg/dL 1.6-2.6 627) POCT-GLUCOSE [id number] 09:09:00 Test Item Value Reference Range Interpretation Comments POC-GLUCOSE METER 122 mg/dL 70-110 H TESTED AT [place] [address] ([facility]) (test code = [facility] 1538) [address] BASIC METABOLIC [id number] 02:49:00 Test Item Value Reference Range Interpretation [...] APPLICABLE FOR DIALYSIS PATIEN TS. LACTIC ACID, [id number] 02:46:00 Test Item Value Reference Range Interpretation Comments LACTATE BLOOD VENOUS (2) (BEAKER) 2.0 mmol/L 0.5-2.2 (test code = 2872) LACTIC ACID, [id number] 22:31:00 Test Item Value Reference Range Interpretation Comments LACTATE BLOOD VENOUS (2) (BEAKER) 2.1 mmol/L 0.5-2.2 (test code = 2872) POCT-GLUCOSE [id number] 21:55:00 Test Item Value Reference Range Interpretation Comments POC-GLUCOSE METER 168 mg/dL 70-110 H TESTED AT [facility] 6720 (BEAKER) (test code = [address] [place] 1538) [address] [id number] 20:15:00 Test Item Value Reference Range Interpretation Comments MAGNESIUM (BEAKER) (test code = 1.9 mg/dL 1.6-2.6 627) BASIC METABOLIC [id number] 20:15:00 Test Item Value Reference Range Interpretation [...] PATIEN TS. CBC W/PLT COUNT & AUTO [id number] 20:14:00 Test Item Value Reference Range Interpretation [...] (BEAKER) (test code = 2801) POCT-LACTIC ACID, [id number] 19:45:00 Test Item Value Reference Range Interpretation Comments POC-LACTIC ACID, 2.4 mmol/L 0.9-1.7 H TESTED AT [facility] [address] ([facility]) (test [facility] code = 2805) [address] POCT-GLUCOSE [id number] 19:25:00 Test Item Value Reference Range Interpretation Comments POC-GLUCOSE METER 204 mg/dL 70-110 H TESTED AT [facility] 6720 ([facility]) (test code = TABATHA Lozano [facility] 1538) [address] POCT-GLUCOSE [id number] 17:24:00 Test Item Value Reference Range Interpretation Comments POC-GLUCOSE METER 149 mg/dL 70-110 H TESTED AT [facility] 67 ([facility]) (test code = [facility] 1538) [address] RAD, CHEST, 1 VIEW, NON [id number] 12:01:00Reason for exam:- >dyspneaShould this be performed at the bedside?->YesFINAL REPORT CLINICAL HISTORY: dyspnea TECHNIQUE: 1 view of the chest. COMPARISO N: 07/25/2018 IMPRESSION: Left lung base pleural-parenchymal opacity is unchanged. The right lung remains relatively well-aerated. The cardiomediastinal silhouette is magnified by technique with sternotomy wires. Signed: Alan Chi MDReport Verified Date/Time: 07/27/2018 12:01:19 Reading Location: [facility] Radiology Reading Room TISSUE [id number] 11:59:00Surgical Pathology Report Case: [id number] Authorizing Provider: Shine Talavera, Collected: 07/21/2018 1022 Ordering Location: [facility] RIZVI Received: 07/21/2018 1159 PERIOPERATIVE SERVICES Pathologist: Davion Mallory MD Specimen: Aortic Valve HEART, AORTIC VALVE, VALVULECTOMY:LEAFLETS WITH SEVERE NODULAR CALCIFIC ATHEROSCLEROTIC THICKENING Signing Pathologist Direct Phone Line: [phone]; 92319Ltsykmpgdytitd disease disease, aortic valve stenosis, etiology of cardiac valve disease unspecifiedAortic valve The specimen is received in a single container in formalin labeled with the patient's information as well as "aortic valve tissue". [...] representatively in a single cassette following decalcification. RC/[id number] 11:30:00 Test Item Value Reference Range Interpretation Comments MAGNESIUM (BEAKER) (test code = 1.7 mg/dL 1.6-2.6 627) POCT-GLUCOSE [id number] 09:47:00 Test Item Value Reference Range Interpretation Comments POC-GLUCOSE METER 114 mg/dL 70-110 H TESTED AT [facility] 6720 (BEAKER) (test code = [facility] 1538) [address] BASIC METABOLIC [id number] 05:37:00 Test Item Value Reference Range Interpretation [...] NOT APPLICABLE FOR DIALYSIS PATIEN TS. POCT-GLUCOSE [id number] 21:01:00 Test Item Value Reference Range Interpretation Comments POC-GLUCOSE METER 136 mg/dL 70-110 H TESTED AT [place] [address] ([facility]) (test code = [facility] 1538) [address] POCT-GLUCOSE [id number] 15:47:00 Test Item Value Reference Range Interpretation Comments POC-GLUCOSE METER 121 mg/dL 70-110 H TESTED AT [place] [address] ([facility]) (test code = [facility] 1538) [address] POCT-GLUCOSE [id number] 09:34:00 Test Item Value Reference Range Interpretation Comments POC-GLUCOSE METER 95 mg/dL 70-110 TESTED AT [place] [address] ([facility]) (test code = [facility] [address] 1538) BASIC METABOLIC [id number] 07:28:00 Test Item Value Reference Range Interpretation [...] NOT APPLICABLE FOR DIALYSIS PATIEN TS. POCT-GLUCOSE [id number] 22:08:00 Test Item Value Reference Range Interpretation Comments POC-GLUCOSE METER 149 mg/dL 70-110 H TESTED AT [place] [address] ([facility]) (test code = [facility] 1538) [address] POCT-GLUCOSE [id number] 15:46:00 Test Item Value Reference Range Interpretation Comments POC-GLUCOSE METER 95 mg/dL 70-110 TESTED AT [facility] 6720 (BEAKER) (test code = [place] [address] 1538) B-TYPE NATRIURETIC FACTOR (BNP)2018-07-25 11:55:00 Test Item Value Reference Range Interpretation Comments B-TYPE NATRIURETIC PEPTIDE (BEAKER) 301 pg/mL 0-100 H (test code = 700) RAD, CHEST, 1 VIEW, NON [id number] 11:29:00Reason for exam:->shortness of breathShould this be performed at the bedside?->YesFINAL REPORT Comparison: 07/24/2018 TECHNIQUE: Single view of the chest FINDINGS: Small left pleural effusion with adjacent airspace disease. Mild vascular congestion suspected elsewhere. Cardiac silhouette is enlarged. Postsurgical changes in the mediastinum noted. Signed: Aung Timmons MDReport Verified Date/Time: 07/25/2018 11:29:19 Reading Location: [address] Read ing Room [id number] 09:47:00 Test Item Value Reference Range Interpretation Comments MAGNESIUM (BEAKER) (test code = 1.9 mg/dL 1.6-2.6 627) BASIC METABOLIC [id number] 09:47:00 Test Item Value Reference Range Interpretation [...] NOT APPLICABLE FOR DIALYSIS PATIEN TS. POCT-GLUCOSE [id number] 08:41:00 Test Item Value Reference Range Interpretation Comments POC-GLUCOSE METER 115 mg/dL 70-110 H TESTED AT [facility] 6720 ([facility]) (test code = [address] 1538) [address] CBC W/PLT COUNT & AUTO [id number] 06:04:00 Test Item Value Reference Range Interpretation [...] ABSOLUTE COUNT 6.71 K/ L 1.78-5.38 H (AKER) (test code = 670) LYMPHOCYTES ABSOLUTE COUNT [...] ([facility]) (test code = 2801) POCT-GLUCOSE [id number] 21:45:00 Test Item Value Reference Range Interpretation Comments POC-GLUCOSE METER 120 mg/dL 70-110 H TESTED AT [place] [address] ([facility]) (test code = [facility] 1538) [address] POCT-GLUCOSE [id number] 18:01:00 Test Item Value Reference Range Interpretation Comments POC-GLUCOSE METER 150 mg/dL 70-110 H TESTED AT [place] [address] ([facility]) (test code = [facility] 1538) [address] POCT-GLUCOSE [id number] 13:03:00 Test Item Value Reference Range Interpretation Comments POC-GLUCOSE METER 152 mg/dL 70-110 H TESTED AT [place] [address] ([facility]) (test code = [facility] 1538) [address] RAD, CHEST, 1 VIEW, NON [id number] 09:45:00Reason for exam:->pleural effShould this be performed at the bedside?->YesFINAL REPORT TECHNIQUE: Frontal chest radiograph dated 07/24/2018. CLINICAL HISTORY: Pleural effusion COMPARISON STUDY: Chest radiograph dated 07/22/2018 IMPRESSION:The extreme lateral left lung base is not included in the gnopv-kg-kmmn. A small left pleural effusion is suspected. Stable left lung base atelectasis. No pneumothorax. Cardiomediastinal silhouette is normal in size. No pulmonary edema. Midline sternotomy wires are intact and well aligned. Signed: Neel Ham Verified Date/Time: 07/24/2018 09:45:08 Reading Location: [facility] Radiology Reading Room POCT-GLUCOSE [id number] 08:16:00 Test Item Value Reference Range Interpretation Comments POC-GLUCOSE METER 149 mg/dL 70-110 H TESTED AT [facility] [address] (BEAKER) (test code = [place] 1538) [id number] 07:48:00 Test Item Value Reference Range Interpretation Comments PHOSPHORUS (BEAKER) (test code = 1.5 mg/dL 2.3-4.7 LL 604) [id number] 07:43:00 Test Item Value Reference Range Interpretation Comments MAGNESIUM (BEAKER) (test code = 1.8 mg/dL 1.6-2.6 627) BASIC METABOLIC [id number] 07:43:00 Test Item Value Reference Range Interpretation [...] PATIEN TS. CBC W/PLT COUNT & AUTO [id number] 06:04:00 Test Item Value Reference Range Interpretation [...] PERCENT (BEAKER) (test code = 2801) POCT-GLUCOSE [id number] 21:28:00 Test Item Value Reference Range Interpretation Comments POC-GLUCOSE METER 130 mg/dL 70-110 H TESTED AT [place] [address] (BEAKER) (test code = TABATHA [place] 1538) [address] URINALYSIS W/ REFLEX URINE [id number] 18:20:00 Test Item Value Reference Range Interpretation [...] Moderate SOURCE(BEAKER) (test code = 2795) POCT-GLUCOSE [id number] 14:57:00 Test Item Value Reference Range Interpretation Comments POC-GLUCOSE METER 135 mg/dL 70-110 H TESTED AT [place] [id number] (BEAKER) (test code = TABATHA Lozano [place] 1538) [address] B-TYPE NATRIURETIC FACTOR (BNP)2018-07-23 06:49:00 Test Item Value Reference Range Interpretation Comments B-TYPE NATRIURETIC PEPTIDE (BEAKER) 446 pg/mL 0-100 H (test code = 700) [id number] 06:09:00 Test Item Value Reference Range Interpretation Comments PHOSPHORUS (BEAKER) (test code = 2.4 mg/dL 2.3-4.7 604) [id number] 06:09:00 Test Item Value Reference Range Interpretation Comments MAGNESIUM (BEAKER) (test code = 2.0 mg/dL 1.6-2.6 627) BASIC METABOLIC [id number] 06:09:00 Test Item Value Reference Range Interpretation [...] NOT APPLICABLE FOR DIALYSIS PATIEN TS. CALCIUM, [id number] 05:57:00 Test Item Value Reference Range Interpretation Comments CALCIUM IONIZED (BEAKER) (test 1.03 mmol/L 1.12-1.27 L code = 698) PH, BLOOD (BEAKER) (test code = 7.44 1810) Check serum Ionized Calcium level after 4 hours after IV Calcium replacement.CBC W/PLT COUNT & AUTO [id number] 05:46:00 Test Item Value Reference Range Interpretation [...] = 2801) RAD, CHEST, 1 VIEW, NON [id number] 00:00:00Reason for exam:->sobShould this be performed at [...] MDReport Verified Date/Time: 07/23/2018 00:00:17 Reading Location: [facility] C013W Consult Reading Room POCT-GLUCOSE [id number] 21:49:00 Test Item Value Reference Range Interpretation Comments POC-GLUCOSE METER 133 mg/dL 70-110 H TESTED AT [place] [address] (BEAKER) (test code = [facility] 1538) [address] POCT-GLUCOSE [id number] 16:55:00 Test Item Value Reference Range Interpretation Comments POC-GLUCOSE METER 156 mg/dL 70-110 H TESTED AT [place] [address] ([facility]) (test code = [facility] 1538) [address] POCT-GLUCOSE [id number] 11:33:00 Test Item Value Reference Range Interpretation Comments POC-GLUCOSE METER 164 mg/dL 70-110 H TESTED AT [place] [address] (BEAKER) (test code = [facility] 1538) [address] [id number] 11:29:00 Test Item Value Reference Range Interpretation Comments PARTIAL THROMBOPLASTIN TIME 47.4 seconds 22.5-36.0 H (BEAKER) (test code = 760) PLATELET [id number] 11:14:00 Test Item Value Reference Range Interpretation Comments PLATELET COUNT (BEAKER) (test 105 K/CU MM 150-450 L code = 756) BASIC METABOLIC [id number] 05:57:00 Test Item Value Reference Range Interpretation [...] S NOT APPLICABLE FOR DIALYSIS PATIEN TS. [id number] 05:56:00 Test Item Value Reference Range Interpretation Comments PHOSPHORUS (BEAKER) (test code = 3.3 mg/dL 2.3-4.7 604) [id number] 05:56:00 Test Item Value Reference Range Interpretation Comments MAGNESIUM (BEAKER) (test code = 2.0 mg/dL 1.6-2.6 627) CBC W/PLT COUNT & AUTO [id number] 05:34:00 Test Item Value Reference Range Interpretation [...] (BEAKER) (test code = 2801) OXYGEN SATURATION, [id number] 05:24:00 Test Item Value Reference Range Interpretation Comments O2 SATURATION (MEASURED) (BEAKER) 62.1 % (test code = 1455) BLOOD GAS, [id number] 05:20:00 Test Item Value Reference Range Interpretation [...] 40.0 % RAD, CHEST, 1 VIEW, NON [id number] 04:49:00Reason for exam:->s/p cardiac surgeryShould this be performed at the bedside?->YesFINAL REPORT CLINICAL INDICATION: Postop Comparison: 07/21/2018 The cardiomediastinal contours are stable. The lung volumes are stable after extubation. Central pulmonary vascular prominence and bilateral parenchymal and left pleural opacities are similar to previous. There is no pneumothorax. Remaining support lines are stable. Signed: Kylah Ortiz MDReport Verified Date/Time: 07/22/2018 04:49:49 Reading Location: [address] Reading Room POCT-GLUCOSE METER 2018-07-22 03:10:00 Test Item Value Reference Range Interpretation Comments POC-GLUCOSE METER 131 mg/dL 70-110 H TESTED AT [facility] 6720 (BEAKER) (test code = TABATHA [place] 1538) [address] LACTIC ACID, [id number] 22:27:00 Test Item Value Reference Range Interpretation Comments LACTATE BLOOD ARTERIAL (2) 2.0 mmol/L 0.5-2.2 (BEAKER) (test code = 2874) [id number] 22:25:00 Test Item Value Reference Range Interpretation Comments MAGNESIUM (BEAKER) (test code = 2.2 mg/dL 1.6-2.6 627) SODIUM NA-STAT [id number] 22:07:00 Test Item Value Reference Range Interpretation Comments SODIUM (BEAKER) (test code = 381) 138 meq/L 135-148 POTASSIUM-STAT [id number] 22:07:00 Test Item Value Reference Range Interpretation Comments POTASSIUM (BEAKER) (test code = 4.1 meq/L 3.6-5.5 379) OXYGEN SATURATION, [id number] 22:07:00 Test Item Value Reference Range Interpretation Comments O2 SATURATION (MEASURED) (BEAKER) 59.7 % (test code = 1455) BLOOD GAS, [id number] 22:07:00 Test Item Value Reference Range Interpretation [...] (test code = 1819) 40.0 % GLUCOSE-STAT [id number] 22:07:00 Test Item Value Reference Range Interpretation Comments GLUCOSE RANDOM (BEAKER) (test code 113 mg/dL 70-110 H = 652) HGB/HCT (H&H) - STAT [id number] 22:07:00 Test Item Value Reference Range Interpretation Comments HEMOGLOBIN (BEAKER) (test code = 10.9 g/dL 13.0-16.8 L 410) HEMATOCRIT (BEAKER) (test code = 32.0 % 40.0-50.0 L 411) LACTIC ACID, [id number] 20:27:00 Test Item Value Reference Range Interpretation Comments LACTATE BLOOD ARTERIAL (2) 2.1 mmol/L 0.5-2.2 (BEAKER) (test code = 2874) [id number] 20:26:00 Test Item Value Reference Range Interpretation Comments POTASSIUM (BEAKER) (test code = 4.3 meq/L 3.5-5.1 379) [id number] 20:26:00 Test Item Value Reference Range Interpretation Comments GLUCOSE RANDOM (BEAKER) (test code 148 mg/dL 70-105 H = 652) BLOOD GAS, [id number] 20:14:00 Test Item Value Reference Range Interpretation [...] (test code = 1819) 60.0 % POCT-GLUCOSE [id number] 18:45:00 Test Item Value Reference Range Interpretation Comments POC-GLUCOSE METER 136 mg/dL 70-110 H TESTED AT [facility] 6720 (BEAKER) (test code = [facility] 1538) [address] BLOOD GAS, [id number] 17:22:00 Test Item Value Reference Range Interpretation [...] (test code = 1819) 60.0 % POCT-GLUCOSE [id number] 16:40:00 Test Item Value Reference Range Interpretation Comments POC-GLUCOSE METER 159 mg/dL 70-110 H TESTED AT [facility] 6720 (BEAKER) (test code = [facility] 1538) [address] [id number] 13:26:00 Test Item Value Reference Range Interpretation Comments MAGNESIUM (BEAKER) 2.4 mg/dL 1.6-2.6 Specimen slightly (test code = 627) hemolyzed [id number] 13:26:00 Test Item Value Reference Range Interpretation Comments PHOSPHORUS (BEAKER) 2.4 mg/dL 2.3-4.7 Specimen slightly (test code = 604) hemolyzed BASIC METABOLIC [id number] 13:26:00 Test Item Value Reference Range Interpretation [...] APPLICABLE FOR DIALYSIS PATIEN TS. LACTIC ACID, [id number] 13:24:00 Test Item Value Reference Range Interpretation Comments LACTATE BLOOD 2.7 mmol/L 0.5-2.2 H Specimen sligh tly ARTERIAL (2) (BEAKER) hemoly zed (test code = 2874) [id number] 13:19:00 Test Item Value Reference Range Interpretation Comments PARTIAL THROMBOPLASTIN TIME 38.9 seconds 22.5-36.0 H (BEAKER) (test code = 760) PROTHROMBIN [id number] 13:18:00 Test Item Value Reference Range Interpretation Comments PROTIME (BEAKER) (test code = 17.4 seconds 11.7-14.7 H 759) INR (BEAKER) (test code = 370) 1.5 <=5.9 RECOMMENDED COUMADIN/WARFARIN INR THERAPY RANGESSTANDARD DOSE: 2.0 - 3.0 Includes: PROPHYLAXIS for venous thrombosis, systemic embolization; TREATMENT for venous thrombosis and/or pulmonary embolus.HIGH RISK: Target INR is 2.5-3.5 for patients with mechanical heart valves.CBC W/PLT COUNT & AUTO [id number] 13:15:00 Test Item Value Reference Range Interpretation [...] = 2801) RAD, CHEST, 1 VIEW, NON [id number] 13:14:00Reason for exam:->s/p cardiac surgeryShould this be [...] Hamepitzel Verified Date/Time: 07/21/2018 13:14:32 Reading Location: [facility] Radiology Reading Room BLOOD GAS, [id number] 13:10:00 Test Item Value Reference Range Interpretation [...] code = 1819) 60.0 % SODIUM NA-STAT [id number] 13:10:00 Test Item Value Reference Range Interpretation Comments SODIUM (BEAKER) (test code = 381) 134 meq/L 135-148 L GLUCOSE-STAT [id number] 13:10:00 Test Item Value Reference Range Interpretation Comments GLUCOSE RANDOM (BEAKER) (test code 165 mg/dL 70-110 H = 652) HGB/HCT (H&H) - STAT [id number] 13:10:00 Test Item Value Reference Range Interpretation Comments HEMOGLOBIN (BEAKER) (test code = 12.3 g/dL 13.0-16.8 L 410) HEMATOCRIT (BEAKER) (test code = 36.0 % 40.0-50.0 L 411) OXYGEN SATURATION, [id number] 13:09:00 Test Item Value Reference Range Interpretation Comments O2 SATURATION (MEASURED) (BEAKER) 70.2 % (test code = 1455) POTASSIUM-STAT [id number] 13:08:00 Test Item Value Reference Range Interpretation Comments POTASSIUM (BEAKER) (test code = 4.3 meq/L 3.6-5.5 379) [id number] 11:23:00 Test Item Value Reference Range Interpretation Comments ACTIVATED CLOTTING TIME 114 sec TEST ED AT [place] [address] ([facility]) (test code = TABATHA Lozano [facility] 441) [address] [id number] 11:23:00 Test Item Value Reference Range Interpretation Comments ACTIVATED CLOTTING TIME 719 sec TEST ED AT [place] [address] ([facility]) (test code = TABATHA Lozano [place] 441) [address] [id number] 11:23:00 Test Item Value Reference Range Interpretation Comments ACTIVATED CLOTTING TIME 516 sec TEST ED AT [place] [address] ([facility]) (test code = TABATHA Lozano [place] [address]) [address] [id number] 11:23:00 Test Item Value Reference Range Interpretation Comments ACTIVATED CLOTTING TIME 598 sec TEST ED AT [place] [address] ([facility]) (test code = TABATHA Lozano [place] [address]) [address] BLOOD GAS, [id number] 11:21:00 Test Item Value Reference Range Interpretation [...] (test code = 1819) 100.0 % GLUCOSE-STAT [id number] 11:21:00 Test Item Value Reference Range Interpretation Comments GLUCOSE RANDOM (BEAKER) (test code 195 mg/dL 70-110 H = 652) HGB/HCT (H&H) - STAT [id number] 11:21:00 Test Item Value Reference Range Interpretation Comments HEMOGLOBIN (BEAKER) (test code = 11.3 g/dL 13.0-16.8 L 410) HEMATOCRIT (BEAKER) (test code = 33.0 % 40.0-50.0 L 411) CALCIUM, [id number] 11:20:00 Test Item Value Reference Range Interpretation Comments CALCIUM IONIZED (BEAKER) (test 1.19 mmol/L 1.12-1.27 code = 698) PH, BLOOD (BEAKER) (test code = 7.31 1810) SODIUM NA-STAT [id number] 11:18:00 Test Item Value Reference Range Interpretation Comments SODIUM (BEAKER) (test code = 381) 135 meq/L 135-148 POTASSIUM-STAT [id number] 11:18:00 Test Item Value Reference Range Interpretation Comments POTASSIUM (BEAKER) (test code = 4.4 meq/L 3.6-5.5 379) [id number] 11:14:00 Test Item Value Reference Range Interpretation Comments FIBRINOGEN LEVEL (BEAKER) (test 230 mg/dl 225-434 code = 658) [id number] 11:14:00 Test Item Value Reference Range Interpretation Comments PARTIAL THROMBOPLASTIN TIME 41.3 seconds 22.5-36.0 H (BEAKER) (test code = 760) PROTHROMBIN [id number] 11:13:00 Test Item Value Reference Range Interpretation Comments PROTIME (BEAKER) (test code = 19.8 seconds 11.7-14.7 H 759) INR (BEAKER) (test code = 370) 1.8 <=5.9 RECOMMENDED COUMADIN/WARFARIN INR THERAPY RANGESSTANDARD DOSE: 2.0 - 3.0 Includes: PROPHYLAXIS for venous thrombosis, systemic embolization; TREATMENT for venous thrombosis and/or pulmonary embolus.HIGH RISK: Target INR is 2.5-3.5 for patients with mechanical heart valves.PLATELET [id number] 10:56:00 Test Item Value Reference Range Interpretation Comments PLATELET COUNT (BEAKER) (test code 84 K/CU MM 150-450 L = 756) BLOOD GAS, [id number] 10:44:00 Test Item Value Reference Range Interpretation [...] code = 1819) 100.0 % SODIUM NA-STAT [id number] 10:44:00 Test Item Value Reference Range Interpretation Comments SODIUM (BEAKER) (test code = 381) 134 meq/L 135-148 L GLUCOSE-STAT [id number] 10:44:00 Test Item Value Reference Range Interpretation Comments GLUCOSE RANDOM (BEAKER) (test code 232 mg/dL 70-110 H = 652) HGB/HCT (H&H) - STAT [id number] 10:44:00 Test Item Value Reference Range Interpretation Comments HEMOGLOBIN (BEAKER) (test code = 8.9 g/dL 13.0-16.8 L 410) HEMATOCRIT (BEAKER) (test code = 26.0 % 40.0-50.0 L 411) CALCIUM, [id number] 10:44:00 Test Item Value Reference Range Interpretation Comments CALCIUM IONIZED (BEAKER) (test 1.05 mmol/L 1.12-1.27 L code = 698) PH, BLOOD (BEAKER) (test code = 7.32 1810) POTASSIUM-STAT [id number] 10:43:00 Test Item Value Reference Range Interpretation Comments POTASSIUM (BEAKER) (test code = 5.3 meq/L 3.6-5.5 379) POTASSIUM-STAT [id number] 10:16:00 Test Item Value Reference Range Interpretation Comments POTASSIUM (BEAKER) (test code = 6.8 meq/L 3.6-5.5 HH 379) HGB/HCT (H&H) - STAT [id number] 10:12:00 Test Item Value Reference Range Interpretation Comments HEMOGLOBIN (BEAKER) (test code = 8.1 g/dL 13.0-16.8 L 410) HEMATOCRIT (BEAKER) (test code = 24.0 % 40.0-50.0 L 411) BLOOD GAS, [id number] 10:11:00 Test Item Value Reference Range Interpretation [...] (test code = 1819) 70.0 % GLUCOSE-STAT [id number] 10:11:00 Test Item Value Reference Range Interpretation Comments GLUCOSE RANDOM (BEAKER) (test code 236 mg/dL 70-110 H = 652) SODIUM NA-STAT [id number] 10:11:00 Test Item Value Reference Range Interpretation Comments SODIUM (BEAKER) (test code = 381) 131 meq/L 135-148 L BLOOD GAS, [id number] 09:44:00 Test Item Value Reference Range Interpretation [...] code = 1819) 70.0 % SODIUM NA-STAT [id number] 09:44:00 Test Item Value Reference Range Interpretation Comments SODIUM (BEAKER) (test code = 381) 133 meq/L 135-148 L POTASSIUM-STAT [id number] 09:44:00 Test Item Value Reference Range Interpretation Comments POTASSIUM (BEAKER) (test code = 5.9 meq/L 3.6-5.5 H 379) GLUCOSE-STAT [id number] 09:44:00 Test Item Value Reference Range Interpretation Comments GLUCOSE RANDOM (BEAKER) (test code 204 mg/dL 70-110 H = 652) HGB/HCT (H&H) - STAT [id number] 09:44:00 Test Item Value Reference Range Interpretation Comments HEMOGLOBIN (BEAKER) (test code = 8.2 g/dL 13.0-16.8 L 410) HEMATOCRIT (BEAKER) (test code = 24.0 % 40.0-50.0 L 411) SODIUM NA-STAT [id number] 09:16:00 Test Item Value Reference Range Interpretation Comments SODIUM (BEAKER) (test code = 381) 132 meq/L 135-148 L POTASSIUM-STAT [id number] 09:16:00 Test Item Value Reference Range Interpretation Comments POTASSIUM (BEAKER) (test code = 5.6 meq/L 3.6-5.5 H 379) HGB/HCT (H&H) - STAT [id number] 09:16:00 Test Item Value Reference Range Interpretation Comments HEMOGLOBIN (BEAKER) (test code = 8.1 g/dL 13.0-16.8 L 410) HEMATOCRIT (BEAKER) (test code = 24.0 % 40.0-50.0 L 411) BLOOD GAS, [id number] 09:15:00 Test Item Value Reference Range Interpretation [...] (test code = 1819) 80.0 % GLUCOSE-STAT [id number] 09:15:00 Test Item Value Reference Range Interpretation Comments GLUCOSE RANDOM (BEAKER) (test code 207 mg/dL 70-110 H = 652) [id number] 08:51:00 Test Item Value Reference Range Interpretation Comments ACTIVATED CLOTTING TIME 577 sec TEST ED AT [facility] 6720 (BEAKER) (test code = TABATHA Lozano [place] 441) [address] BLOOD GAS, [id number] 08:20:00 Test Item Value Reference Range Interpretation [...] (test code = 1819) 100.0 % GLUCOSE-STAT [id number] 08:20:00 Test Item Value Reference Range Interpretation Comments GLUCOSE RANDOM (BEAKER) (test code 132 mg/dL 70-110 H = 652) SODIUM NA-STAT [id number] 08:19:00 Test Item Value Reference Range Interpretation Comments SODIUM (BEAKER) (test code = 381) 138 meq/L 135-148 POTASSIUM-STAT [id number] 08:19:00 Test Item Value Reference Range Interpretation Comments POTASSIUM (BEAKER) (test code = 3.8 meq/L 3.6-5.5 379) HGB/HCT (H&H) - STAT [id number] 08:19:00 Test Item Value Reference Range Interpretation Comments HEMOGLOBIN (BEAKER) (test code = 14.2 g/dL 13.0-16.8 410) HEMATOCRIT (BEAKER) (test code = 42.0 % 40.0-50.0 411) POCT-GLUCOSE [id number] 06:27:00 Test Item Value Reference Range Interpretation Comments POC-GLUCOSE METER 130 mg/dL 70-110 H TESTED AT [facility] 6720 (HALLIE) (test code = TABATHA [place] 1538) [address] CT, CHEST, WITHOUT [id number] 17:18:00preop AVR ACB assess for calcification aortaAddendum BeginsREPORT STATUS:A Addendum: I agree with the previously described non vascular findings. Signed: Kai Hightower MDReport Verified Date/Time: 07/09/2018 17:18:52 Reading Location: [place] [address] Angio Body Reading RoomAddendum EndsFINAL REPORT CT of the chest, without contrast, 09 Jul 2018 INDICATION: This is a 78 year old male presents for preoperative assessment. This study is performed in an attempt to avoid an invasive procedure. TECHNIQUE: Spiral acquisition without intravenous contrast administration using a [place] CT scanner. Images were o btained without the dynamic passage of intravenous contrast material. Multi- planar 3-D volume-rendering reconstruction was performed using an independent workstation interactively by the interpreting physician. Please refer to the contrast sheet scanned in the [employer] system for the amount and route of contrast given. This exam was performed according to our departmental dose-optimisation programme, which includes automated exposure control, adjustment of the mA and/or kV according to patient size and/or use of iterative reconstruction technique. Dose modulation, iterative reconstruction, and/or weight based adjustment of the mA/kV was utilized to reduce the radiation dose to as low as reasonably achievable. FINDINGS: VASCULAR: The pericardium has normal appearance. No pericardial effusion is identified. The central pulmonary artery is normal in calibre. Assessment of the heart is limited without contrast administration. The left ventricle appears to be normal in size. Left atrial enlargement is identified. No obvious pericardial effusion is seen. Diffuse calcification is seen in the left main coronary artery, LAD, RCA, and the left circumflex system. Significant aortic valvular calcification isidentified. Scattered calcification is seen at the sinotubular junction and ascending thoracic aorta. Mild to moderate calcification is seen in transverse arch, and descending thoracic aorta. At the juncture of the transverse arch/proximal descending thoracic aorta, it is mildly tortuous. Minimal ectasia is seen in the mid ascending thoracic aorta. Quantitative dimensions of the aorta are as follows:3.2 cm at the sinuses of Valsalva (the [...] sternotomy is identified. Calcified lymph nodes identified in the left hilum indicating prior granulomatous disease. Debris is identified in the right lateral aspect of the trachea, for example image 67. In the lung windows, no endobronchial lesion is seen, and no pleuraleffusion is identified. Calcified nodule is identified in the left lung, for example image 102 indicating prior granulomatous disease. Some subsegmental atelectatic changes are seen, for example in themedial aspect of the left lower lobe. Overall, no suspicious pulmonary nodule is identified. Limitedimages of the upper abdomen reveals no gross abnormality. Small gallstone is seen in the gallbladderwith no wall thickening identified. No acute bony pathology is seen. Some degenerative changes is noted. Conclusion: 1. There is aortic valve calcification identified. Diffuse coronary artery calcification is seen. The ascending thoracic aorta is free of calcification. Mild to moderate aspiration seenin the transverse arch and descending thoracic aorta. Assessment of the aorta is incomplete without c ontrast administration. Minimal ectasia seen in the mid ascending thoracic aorta measure 3.9 cm in diameter and remainder of the thoracic aorta is normal in course and calibre. Quantitative dimension of the thoracic aorta are as described above. By visual estimation, the anterior margin of the ascending thoracic aorta is at least 2 cm posterior to the sternum. 2. No acute pulmonary pathology is identified. Evidence of prior granulomatous disease. 3. Other findings as described above. 4. An addendum will be dictated regarding the non- vascular findings by the [employer] Floor Layer Radiologist. Signed: Michele Lua MDReport Verified Date/Time: 07/09/2018 14:59:04 Reading Location: [place] [address] Cardiology MRI RAD, CHEST, 2 [id number] 14:54:00Reason for exam:->pre opFINAL REPORT Chest, 2 views. Clinical History: pre op Comparison Study: None Findings: The heart and lungs are within normal limits. The aorta is tortuous. The pleural spaces are clear. No significant bony or soft tissue abnormalities are seen. Impression: No active cardiopulmonary disease. Signed: Mukesh Mcmanus Verified Date/Time: 07/09/2018 14:54:20 Reading Location:[facility] C013W Consult Reading Room HEMOGLOBIN [id number] 14:40:00 Test Item Value Reference Range Interpretation Comments HEMOGLOBIN A1C (BEAKER) (test code = 6.4 % 4.3-6.1 H 368) BASIC METABOLIC [id number] 13:47:00 Test Item Value Reference Range Interpretation [...] NOT APPLICABLE FOR DIALYSIS PATIEN TS. PROTHROMBIN [id number] 13:36:00 Test Item Value Reference Range Interpretation Comments PROTIME (BEAKER) (test code = 16.2 seconds 11.7-14.7 H 759) INR (BEAKER) (test code = 370) 1.4 <=5.9 RECOMMENDED COUMADIN/WARFARIN INR THERAPY RANGESSTANDARD DOSE: 2.0 - 3.0 Includes: PROPHYLAXIS for venous thrombosis, systemic embolization; TREATMENT for venous thrombosis and/or pulmonary embolus.HIGH RISK: Target INR is 2.5-3.5 for patients with mechanical heart valves.CBC W/PLT COUNT & AUTO [id number] 13:28:00 Test Item Value Reference Range Interpretation [...] % 0-1 PERCENT (BEAKER) (test code = 4468)
[2022-05-07 18:06] VITALS: BMI 35.1
[2022-05-07] MEDS: CEFAZOLIN 1 GM in NA CHLORIDE 0.9% 50 ML IVPB SCH (18:19)
[2022-05-07] MEDS ORDERED: INFLUENZA VACCINE (for 6+ mo) 0.5 ML DOSE IMVAC ONE (20:00)
[2022-05-07] MEDS ORDERED: PNEUMOCOCCAL VACCINE 0.5 ML IMVAC ONE (20:00)
--- NOTE | 2022-05-08 00:47 | OP ---
Date of Procedure: 05/07/2022 Surgeon: Behzad Montes MD Preoperative Diagnosis: Severe right knee degenerative joint disease. Postoperative Diagnosis: Severe right knee degenerative joint disease. Procedure: Right total knee arthroplasty using the [employer] Vangu[employer] system. Estimated Blood Loss: 100 cc. Complications: There were no complications. Indications For Operation: Mr. Poole is an 81-year-old gentleman who has been suffering for quite some time with a very painful knee. This persisted despite conservative measures. Risks, benefits, and alternatives to total knee arthroplasty have been discussed to both he and his family. They sta alex they understand things as presented and wishes to proceed. Description Of Procedure: Patient obtains a block in the holding area. Then, he was transferred to the operating area and general anesthesia was easily obtained by the Anesthesia staff. Following thi s, a well-padded tourniquet was placed on superior right thigh. Right lower extremity was then prepp ed and draped in the usual sterile fashion for the procedure. Following this, the leg was then eleva alex and gently exsanguinated using Andry wrap. Knee was bent and tourniquet was raised. A standard an terior incision was taken down carefully through skin and soft tissues. Meticulous hemostasis being maintained using Bovie electrocautery. The correct layer was developed and the extensor mechanism wa s easily identified. After this, a riya was made at the superior medial pole of patella and a standa rd medial parapatellar arthrotomy was then performed. The medial lateral menisci as well as some fat pad and anterior cruciate ligament are excised and the intramedullary guide was then placed without difficulty. A standard distal cut was then made. After this was sized to a size 70, the other remai nder of the cuts are completed without difficulty. Attention was then turned to the notch where the PCL was excised and the PCL retractors then placed bringing the tibia forward. After this, a tibial cut was made using the tibial guide. The tibia was then incised and trial femur and tibia were then placed. It comes down to full extension without difficulty and is stable to varus valgus stress and appears to be balanced in both flexion and extension. Attention was then turned to the patella which was calipered and cut. The trial patella was placed and the patella glides excellently. After this , the box was cut for the PS component. The bone plug was placed. Tibia was punched and the surface s were prepped for cementation. The final implants with the exception of the polyethylene are then p laced with the trial polyethylene being used as a spacer. After the cement had hardened, it was brou ght through full range of motion, again it appears to be balanced, but I do feel that perhaps 12 migh t be better than a 10, so the trial was placed and now it feels very good, completely balanced. It d oes come to full extension and flexes without any difficulty. The patella tracks normally. The soledad l poly was then placed and the wound was copiously irrigated and the extensor mechanism was repaired using heavy Ethibond sutures, followed by closure of skin with Vicryl followed by isidro. Patient t hen placed in a very well-padded sterile dressing, awakened and taken to recovery room in good condit ion. There were no complications. /MODL Voice ID: [id number] Report ID: [id number]
[2022-05-08] MEDS: CEFAZOLIN 1 GM in NA CHLORIDE 0.9% 50 ML IVPB SCH ×2 (01:10→09:51)
--- NOTE | 2022-05-08 01:17 | CON ---
Date of Consultation: 05/07/2022 Reason For Consultation: Medical management after knee surgery. History Of Present Illness: This is an 81-year-old male patient, who was admitted to the hospital af ter right knee replacement surgery done by Dr. Montes. After the surgery, patient was admitted to medical floor and was consulted requesting medical management for this patient. The patient has bee n under my care on outpatient basis and I saw him this evening. He denies any complaints. He was sl eeping, easily arousable. Denies any pain, nausea, or vomiting. No shortness of breath. No chest p ain. Allergies: FENOFIBRATE, CAUSING ABNORMAL LIVER FUNCTION TEST. Medications: On outpatient basis, he takes amlodipine 5 mg daily in morning, aspirin 81 mg daily, du loxetine 20 mg daily, levothyroxine 112 mcg p.o. daily, metformin 500 mg p.o. daily, metoprolol tartr ate 25 mg 2 times a day, and rosuvastatin 5 mg daily at bedtime. Review of Systems: Musculoskeletal: Significant for knee pain. All other systems reviewed and negative. Past Medical History: Significant for COVID-19 infection in April 2020, Alzheimer disease, allerg ic rhinitis, throat cancer, hypothyroidism, type 2 diabetes mellitus, hypertension, mixed hyperlipide vasu, coronary artery disease, paroxysmal atrial fibrillation, aortic stenosis, abdominal aortic aneur ysm, aortic atherosclerosis, carotid artery stenosis, bilateral gallstones, diverticulosis, kidney st one, osteoarthritis at multiple sites, and depression. Past Surgical History: Cataract surgery, tonsillectomy, coronary artery bypass surgery and had CAVAZOS to LAD in July 2018, bioprosthetic aortic valve placement in July 2018, hernia repair, and left hip jericho zach. Family History: Father , had coronary artery disease. Mother , had diabetes and hypertensio n. Brother had melanoma. Sister , had stroke and hepatitis C. Social History: Prior history of smoking, not at present time. Use of alcohol, negative. Objective: Vital Signs: This evening, temperature 98, pulse 66, respiratory rate 17, blood pressure 116/60, oxygen saturation 96% on 2 L nasal cannula oxygen. Height 5 feet 8 inches, weight 231 pound s. General: Awake, alert, oriented, not in distress. HEENT: Head atraumatic, normocephalic. Conjunctivae nonerythematous. Sclerae white. Mouth, no thr ush or edema noted. Ears/Nose, no mass, lesion, discharge noted. Neck: Supple. No JVD, lymph nodes, bruit, thyromegaly noted. Lungs: Bilateral good equal air entry. Clear to auscultation. No rhonchi. No rales. Heart: Normal heart sounds, no murmur or gallop. Abdomen: Soft, bowel sounds normal. No guarding, rigidity, tenderness, mass, hepatosplenomegaly, dis tention, or bruit noted. Extremities: Right leg dressing present. Skin: No rash, ulcer, cellulitis. Lymphatics: No lymph node enlargement in neck, supraclavicular, infraclavicular region. Neuro: No focal neurological deficit. Chest: Unremarkable. External Genitalia: Deferred. Rectal: Deferred. Laboratory Data: White count 7.7, hemoglobin 15.4, platelets 180, and this was done on 05/02/2022. His sodium was 137, potassium 4.7, chloride 104, bicarb 30, BUN 17, creatinine 1.13, glucose 135. Li [place] function tests unremarkable. Impression: 1.Coronary artery disease. 2.Hypertension. 3.Mixed hyperlipidemia. 4.Bilateral carotid artery stenosis. 5.Non-insulin dependent diabetes mellitus. 6.Osteoarthritis, multiple sites. 7.Hypothyroidism. 8.Diverticulosis. 9.Depression. Plan: We will go ahead and continue the patient's home medications per order. We will continue his levothyroxine and rosuvastatin per order. Blood pressure is not high enough to restart metoprolol at this time and the patient is to start his aspirin 81 mg daily, starting tomorrow. Diabetes will be managed with sliding scale insulin. Starting tomorrow depending on his oral intake, we will start me tformin. Details and plan of treatment discussed with the patient and I will see him tomorrow flaco mcknight for followup. NIKI/MODL Voice ID: [id number] Report ID: [id number]
[2022-05-08 03:44] LABS: Hematocrit 40.8 % (39.6-49.0)
[2022-05-08] MEDS: ENOXAPARIN 30 MG/0.3 ML SQ SCH ×2 (05:30→09:52)
[2022-05-08] MEDS ORDERED: METOPROLOL TAR 25 MG TAB PO ONE (07:49)
[2022-05-08] MEDS ORDERED: ACETAMINOPHEN 500 MG TAB PO ONE (12:36)
[2022-05-08 13:26] VITALS: BP 126/75; TEMP 98.8
--- NOTE | 2022-05-08 23:29 | PN ---
Date of Progress Note: 05/08/2022 Subjective: The patient was seen this morning for followup. He was lying in bed, not in distress. His son was present with him at bedside. Objective: Vital Signs: Reviewed. HEENT: Unremarkable. Lungs: Clear to auscultation. Heart: Sounds normal. Abdomen: Soft. Bowel sounds normal. No guarding, rigidity, tenderness, or distention. Extremities: No leg edema. Laboratory Data: Hemoglobin this morning was 13.8. Impression: 1.Hypertension. 2.Hyperlipidemia. 3.Osteoarthritis, multiple sites. 4.Type 2 diabetes mellitus. Plan: The patient is doing very well after his right knee surgery yesterday. Medically, he is stabl e for discharge. I have informed him that upon discharge when he goes home, he should continue all h is previous home medications except he should not take his amlodipine and he should check his blood p ressure 2 times a day and once his systolic blood pressure gets to 140 or higher then he should resta rt his amlodipine. The patient was instructed to come see me at office next week for followup. NIKI/MODL Voice ID: [id number] Report ID: [id number]
== END 2022-05-08 13:10 | disposition home health service (06) ==
LOC: OR 10:53 → 2ND 16:16
PROVIDERS: ADMIT Orthopaedic Surgery; ATTEND Orthopaedic Surgery
PROC: 0SRC069 Replacement of Right Knee Joint with Oxidized Zirconium on Polyethylene Synthetic Substitute, Cemented, Open Approach (ICD-10-PCS; principal; 2022-05-07 13:30)
DX: M17.11 Unilateral primary osteoarthritis, right knee (principal); E11.9 Type 2 diabetes mellitus without complications; I10 Essential (primary) hypertension; E66.9 Obesity, unspecified; E78.5 Hyperlipidemia, unspecified; I25.10 Atherosclerotic heart disease of native coronary artery without angina pectoris; Z23 Encounter for immunization
CPT/HCPCS: 93005; 85025; 36415 ×2; 86900; 86850; 85610; 86901; 82947 ×5; 88305; 88311; 85730; 85018; 85014; 81003; 80053; 71046; 90471 ×2; 90732; 97110; 97116 ×2; 97139; 97161; 97530; 94010; 27447; J2704 ×3; J0171; J2001 ×2; Q2035; J1650 ×2; J3010; J1100 ×2; A4216; J1170; J7030 ×3; J2405; J0690 ×3; G0378; G0379

== ENCOUNTER 2022-09-25 18:25 | Emergency (ER) | payer OTHER ==
--- OUTSIDE RECORDS SUMMARY | 2022-09-25 18:32 | XMS REPORT | Continuity of Care Document ---
:1940 Author Organization [facility] t Address [address] [place] [address] Care Team Providers Name Role Phone Kevin Jones MD Primary Care Physician Kevin Jones Attending Clinician Unavailable CARLOS BHAT Attending Clinician STAN Bustamante Attending Clinician Unavailable Jaycob Worley Attending Clinician SHANE BLAS Attending Clinician Unavailable SHINE TALAVERA Attending Clinician Unavailable CARLOS BHAT Admitting Clinician STAN Bustamante Admitting Clinician Unavailable GAGAN VARELA Admitting Clinician Unavailable SHINE TALAVERA Admitting Clinician Unavailable Payers Payer Name Policy Type Policy Number Effective Date Expiration Date Juana willams [employer]ET[employer] MEDICARE HMO [id number] 2018 POS PPO 00:00:00 Problems Condition Condition Condition Status Onset Resolution Last Treating Co mments Source Name Details Category Date Date Treatment Clinician Date Coagulopat Coagulopat Disease [facility]ur[facility] [place] Disease Active [facility] Medical 00 [place] HLD HLD Disease Active [facility] (hyperlipi (hyperlipi 2-11 Yen kes demia) demia) 00:00: Medical 00 Center SDH SDH Disease Recurre [facility] (subdural (subdural nce 2-10 [facility] hematoma) hematoma) 00:00: [place] [id number] Center S/P AVR S/P AVR Disease Active [facility] (aortic (aortic 07-21 [facility] valve valve 00:00: Medical replacemen replacemen 00 Ce nter t) t) S/P CABG x S/P CABG x Disease Active [facility] 1 1 07-21 kes 00:00: Medical [address] [place] [address] Myoclonus Myoclonus Problem Active 2021-11-18 Memoria (finding) (finding) 07-09 21:55:35 l Active 00:00: [place] 07/09/2016 00 Problem 11/18/2021 [facility] Amnesia Amnesia Problem Active 2021-11-18 Me moria (finding) (finding) 07-26 21:55:35 l Active 00:00: [place] 07/27/2015 00 Problem 11/18/2021 [facility] Diabetes Diabetes Problem Active 2021-11-18 Memoria mellitus mellitus 21:55:35 l type 2 type 2 [place] (disorder) (disorder) Active Problem 11/18/2021 [facility] Hypothyroi Hypothyro Problem Active 2021-11-18 Memoria dism idism 21:55:35 l (disorder) (disorder) [facility] Active Problem 11/18/2021 [facility] Primary Primary Problem Active 2021-11-18 M e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 [place] 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, type, senile senile onset onset (disorder) (disorder) Active Problem 11/18/2021 [facility] Syncope Syncope Problem Active 2021-11-18 M emoria (disorder) (disorder) 21:55:35 l Active Robin Problem 11/18/2021 [facility] DM DM Disease Recurre [facility] (diabetes (diabetes nce [facility] mellitus) mellitus) [facility] 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 nce [facility] disease disease Medical Center Atrial Atrial Disease Recurre [facility] fibrillati fibrillati nce [facility] k[facility] on on [facility] Hypertensi Hypertensi Disease Active [facility] on on [facility] Aortic Aortic Disease Active [facility] stenosis stenosis [facility] Allergies, Adverse Reactions, Alerts Allergy Allergy Status Severity Reaction(s) Onset Inactive Treating Comm ents Source Name Type Date Date Clinician NO KNOWN Allergy Active [facility] ALLERGIE S No Known No Known Active Memori [facility] Medicati l on on [place] Allergie Allergie s s Family History Family Member Diagnosis Comments Start Date Stop Date Source Natural father Heart disease [facility] Natural mother Diabetes [facility] Natural mother Heart disease [facility] Social History Social Habit Start Date Stop Date Quantity Comments Source History of tobacco Chews Tobacco [facility] use [facility] Center History SDOH [facility] Alcohol Comment Medical C enter [facility] SDOH [facility] Alcohol Std Drinks Medica l Center History SDOH [facility] Alcohol Binge Medical Ab[facility] Social History 2020-01-14 2020-01-14 [facility] 16:52:28 16:52:28 Alcohol intake 2018-07-22 2018-07-[address] [facility] 00:00:00 00:00:00 non-drinker of Medical Ce nter alcohol (finding) Tobacco use and 2018-07-09 2018-07-[address] [facility] exposure 00:00:00 00:00:00 Medical Center History SDOH 2018-07-09 2018-07-[address] [facility] Alcohol Frequency 00:00:00 00:00:00 [facility] Cigarettes smoked 2018-07-09 2018-07-[address] [facility] current (pack per 00:00:00 00:00:00 Medical Center day) - Reported Cigarette 2018-07-09 2018-07-[address] [facility] [address] [facility] pack-years 00:00:00 00:00:00 [facility] Sex Assigned At [address] [facility] 00:00:00 00:00:00 [facility] Smoking Status Start Date Stop Date Source Tobacco smoking [facility] consumption unknown Former smoker 2018-07-09 00:00:00 2018-07-[address] [facility] [address] [facility] Medical 00:00:00 Center Medications Ordered Filled Start Stop Current Ordering Indication Dosage Frequency Signature Comments Components Source Medication Medication Date Date Medication? Clinician (SIG) Name Name Karen 4 2021- Yes 4 mg = 1 Mem oria mg oral - tab, PO, l tablet 16:19: BID, # 60 Tolu n 00 tab, 3 Refill(s), Pharmacy: [facility] #[id number], 168.91, cm, 08/16/21 11:02:00 CDT, Height, 106.506, kg, 08/16/21 11:02:00 CDT, Weight Razadyne 4 0 Yes 4 mg = 1 Mem oria mg oral 6-09 tab, PO, l tablet 16:19: BID, # 60 Tolu n 00 tab, 3 Refill(s), Pharmacy: [facility] #[id number], 168.91, cm, 08/16/21 11:02:00 CDT, Height, 106.506, kg, 08/16/21 11:02:00 CDT, Weight DULoxetine Yes See Memoria 20 mg oral 5-17 Instructio l delayed 13:37: ns, TAKE 1 Herm gilbert release 00 CAPSULE BY capsule MOUTH EVERY DAY, # 90 unknown unit, 1 Refill(s), Pharmacy: [facility] STORE [id number], 175.26, cm, 07/06/20 11:00:00 CDT, Height, 103.636, kg, 07/06/20 11:00:00 CDT, Weight DULoxetine 0 Yes See Memoria 20 mg oral 5-17 Instructio l delayed 13:37: ns, TAKE 1 Herm gilbert release 00 CAPSULE BY capsule MOUTH EVERY DAY, # 90 unknown unit, 1 Refill(s), Pharmacy: [facility] ([email or web address] STORE [id number], 175.26, cm, 07/06/20 11:00:00 CDT, Height, 103.636, kg, 07/06/20 11:00:00 CDT, Weight Lisinopril Yes 20 mg, PO, M emoria 2-24 Daily, 0 l 21:28: Refill(s) Amiodarone 0 Yes 200 mg, Ulises sasha 2-24 PO, BID, 0 l 21:28: Refill(s) atorvastati Yes 20 mg, PO, Memoria n 2-24 Daily, 0 l 21:28: Refill(s) donepezil Yes 10 mg, PO, Me moria 2-24 Daily, 0 l 21:28: Refill(s) Famotidine Yes 20 mg = 1 Me moria 2-24 tab, PO, l 21:28: BID, # 60 [place] 00 tab, 0 Refill(s) acetaminoph 0 Yes 650 mg = 2 Memoria en 325 mg 2-24 tab, PO, l oral tablet 21:28: Q6H, 0 Herm gilbert 00 Refill(s) Lisinopril Yes 20 mg, PO, M emoria [...] tab, PO, l 21:28: BID, # 60 [place] 00 tab, 0 Refill(s) acetaminoph Yes 650 mg = 2 Memoria en 325 mg 2-24 tab, PO, l oral tablet 21:28: Q6H, 0 Herm gilbert 00 Refill(s) DULoxetine Yes 20mg QD Take 1 [...] MG tablet 00 by mouth Center daily. DULoxetine 0 Yes 20mg QD Take 1 [...] MG tablet 00 by mouth Center daily. senna-docus 0 Yes 1{tbl} QD Take 1 CH I [...] mouth every 6 (six) hours as needed. atorvastati 0 Yes 20mg QD Take 1 [...] tablet 00 by mouth Center daily. famotidine 2020-0 Yes 20mg Take 1 [facility] (PEPCID) 20 2-18 tablet (20 Yen kes MG tablet 00:00: mg total) Med ical 00 by mouth Center every 12 (twelve) hours. metoprolol 202-0 Yes 50mg Q.5D Take 1 [facility] tartrate 2-18 tablet (50 [facility] (LOPRESSOR) 00:00: mg total) M edical 50 MG 00 by mouth 2 Center tablet (two) times daily. atorvastati 202-0 Yes 20mg QD Take [address] [facility] n (LIPITOR) 2-18 tablet (20 Yen kes 20 MG 00:00: mg total) Medical tablet 00 by mouth Center nightly. amiodarone 2020-0 Yes 200mg Q.5D Take [address] [facility] (PACERONE) 2-18 tablet [facility] 200 MG 00:00: (200 mg Medical tablet 00 total) by Center mouth 2 (two) times daily. donepeziL 2020-0 Yes 10mg QD Take [address] [facility] (ARICEPT) 2-18 tablet (10 Luke s 10 MG 00:00: mg total) Medical tablet 00 by mouth Center daily. famotidine 2020-0 Yes 20mg Take 1 [facility] (PEPCID) 20 2-18 tablet (20 Yen kes MG tablet 00:00: mg total) Med ical 00 by mouth Center every 12 (twelve) hours. metoprolol 2020-0 Yes 50mg Q.5D Take 1 [facility] tartrate 2-18 tablet (50 [facility] (LOPRESSOR) 00:00: mg total) M edical 50 MG 00 by mouth 2 Center tablet (two) times daily. senna-docus 2020-0 Yes 1{tbl} QD Take [address] ate 2-18 tablet by [facility] (SENOKOT S) 00:00: mouth Medic al 8.6-50 mg 00 nightly. Center per tablet methyl 2020-0 Yes 35g Apply 35 g [facility] salicylate- 2-18 topically [place] menthol 00:00: 3 (three) Medic al 15-10 % 00 times Center Crea daily as needed (knee and shoulder pain). metFORMIN 2020-0 Yes 500mg Take 1 [facility] (GLUCOPHAGE 2-18 tablet [facility] ) 500 MG 00:00: (500 mg Medica l tablet 00 total) by Center mouth daily with breakfast. acetaminoph 2020-0 Yes 325mg Take [address] [facility] [facility] en 2-18 tablet [facility] (TYLENOL) 00:00: (325 mg Medic al 325 MG 00 total) by Center tablet mouth every 6 (six) hours as needed. Memantine 2019-03 Yes 10 mg = 1 Mem oria hydrochlori 1-06 tab, PO, l de 10 MG 16:49: BID, # 180 Her valente Oral Tablet 00 tab, 3 [Namenda] Refill(s), Pharmacy: [facility] #[id number], 170.18, cm, 10/22/19 9:06:00 CDT, Height, 107.727, kg, 10/22/19 9:06:00 CDT, Weight Memantine 2019-03 Yes 10 mg = 1 Mem oria hydrochlori 1-06 tab, PO, l de 10 MG 16:49: BID, # 180 Her valente Oral Tablet 00 tab, 3 [Namenda] Refill(s), [id number], 170.18, cm, 10/22/19 9:06:00 CDT, Height, 107.727, kg, 10/22/19 9:06:00 CDT, Weight DULoxetine 2019-0 Yes See Memoria 20 mg oral 9-14 Instructio l delayed 15:17: ns, TAKE 1 Herm gilbert release 00 CAPSULE BY capsule MOUTH EVERY DAY, # 90 unknown unit, 2 Refill(s), [id number], 170.18, cm, 10/22/19 9:06:00 CDT, Height, 107.727, kg, 10/22/19 9:06:00 CDT, Weight DULoxetine 2019-0 Yes See Memoria 20 mg oral 9-14 Instructio l delayed 15:17: ns, TAKE 1 Herm gilbert release 00 CAPSULE BY capsule MOUTH EVERY DAY, # 90 unknown unit, 2 Refill(s), [id number], 170.18, cm, 10/22/19 9:06:00 CDT, Height, 107.727, kg, 10/22/19 9:06:00 CDT, Weight Memantine 2019-0 Yes 5 mg = 1 Ulises sasha hydrochlori 8-14 tab, PO, l de 5 MG 14:20: BID, # 60 Tracy nn Oral Tablet 00 tab, 3 [Namenda] Refill(s), Pharmacy: [facility] ST[facility] #[id number], 170.18, cm, 10/22/19 9:06:00 CDT, Height, 107.727, kg, 10/22/19 9:06:00 CDT, Weight Memantine 2019-0 Yes 5 mg = 1 Ulises sasha hydrochlori 8-14 tab, PO, l de 5 MG 14:20: BID, # 60 Tracy nn Oral Tablet 00 tab, 3 [Namenda] Refill(s), Pharmacy: [facility] ST[facility] #[id number], 170.18, cm, 10/22/19 9:06:00 CDT, Height, 107.727, kg, 10/22/19 9:06:00 CDT, Weight DULoxetine Yes = 1 cap, Mem oria 20 mg oral 3-16 PO, Daily, l delayed 16:01: # 90 cap, Tracy nn release 00 1 capsule Refill(s), Pharmacy: [facility] #[id number] DULoxetine Yes = 1 cap, Mem oria 20 mg oral 3-16 PO, Daily, l delayed 16:01: # 90 cap, Tracy nn release 00 1 capsule Refill(s), Pharmacy: [facility] #[id number] rivaroxaban 2019-0 Yes 20 mg = 1 M emoria 20 MG Oral 8-14 tab, PO, l Tablet 14:43: QPM, # 30 Tolu n [Xarelto] 00 tab, 3 Refill(s) rivaroxaban 2019-0 Yes 20 mg = 1 M emoria 20 MG Oral 8-14 tab, PO, l Tablet 14:43: QPM, # 30 Tolu n [Xarelto] 00 tab, 3 Refill(s) DULoxetine 2018-0 Yes = 1 cap, Mem oria 20 mg oral 7-24 PO, Daily, l delayed 22:16: # 90 cap, Tracy nn release 51 1 capsule Refill(s), Pharmacy: [facility] #[id number] DULoxetine Yes = 1 cap, Mem oria 20 mg oral 7-24 PO, Daily, l delayed 22:16: # 90 cap, Tracy nn release 51 1 capsule Refill(s), Pharmacy: [facility] ([email or web address] #[id number] [facility] in 4-24 [facility] (NITROSTAT) 00:00: Medica l 0.4 MG SL 00 Center tablet nitroglycer [address] [facility] in 4-24 [facility] (NITROSTAT) 00:00: Medica l 0.4 MG SL 00 Center tablet donepezil Yes = 1 tab, Ulises sasha 10 mg oral 3-25 PO, l tablet 16:03: Bedtime, # Tracy nn 07 30 tab, Refill(s) 5, Pharmacy: [facility] #[id number] donepezil Yes = 1 tab, Ulises sasha 10 mg oral 3-25 PO, l tablet 16:03: Bedtime, # Tracy nn 07 30 tab, Refill(s) 5, Pharmacy: [facility] ([email or web address] #[id number] DULoxetine Yes = 1 cap, Mem oria 20 mg oral 3-24 PO, Daily, l delayed 21:08: # 30 Robin release 47 unknown capsule unit, Refill(s) 5, Pharmacy: [facility] ([email or web address] #[id number] DULoxetine 2018- Yes = 1 cap, Mem oria 20 mg oral 3-24 PO, Daily, l delayed 21:08: # 30 Alpine release 47 unknown capsule unit, Refill(s) 5, Pharmacy: [facility] #[id number] Vital Signs Vital Name Observation Time [...] Systolic (mm Hg) 2021-08-16 15:30:00 Ulises rial [place] Diastolic (mm Hg) 2021-08-16 15:30:00 Mem orial Robin Heart Rate 2021-08-16 15:30:00 [facility] Robin Respitory Rate 2021-08-16 15:30:00 Memori al [place] Height 2021-08-16 15:30:00 168.91 cm [facility] [place] Weight 2021-08-16 15:30:00 [facility] [place] BMI Calculated 2021-08-16 15:30:00 Memori al Robin Systolic (mm Hg) 2021-02-15 16:34:00 Ulises rial Robin Diastolic (mm Hg) 2021-02-15 16:34:00 Mem orial [place] Heart Rate 2021-02-15 16:34:00 [facility] [place] Respitory Rate 2021-02-15 16:34:00 Memori al Robin Height 2021-02-15 16:34:00 170.18 cm [facility] [place] Weight 2021-02-15 16:34:00 [facility] BMI Calculated 2021-02-15 16:34:00 Memori al [place] Height 2020-10-19 15:38:00 167.64 cm [facility] Weight 2020-10-19 15:38:00 [facility] [place] BMI Calculated 2020-10-19 15:38:00 Memori al Robin Systolic (mm Hg) 2020-10-19 15:38:00 Ulises rial [place] Diastolic (mm Hg) 2020-10-19 15:38:00 Mem orial Robin Heart Rate 2020-10-19 15:38:00 [facility] [place] Respitory Rate 2020-10-19 15:38:00 Memori al [place] Systolic (mm Hg) 2020-08-17 15:49:00 Ulises rial Robin Diastolic (mm Hg) 2020-08-17 15:49:00 Mem orial [place] Heart Rate 2020-08-17 15:49:00 [facility] [place] Respitory Rate 2020-08-17 15:49:00 Memori al [place] Height 2020-08-17 15:49:00 175.26 cm [facility] Weight 2020-08-17 15:49:00 [facility] [place] BMI Calculated 2020-08-17 15:49:00 Memori al [place] Systolic (mm Hg) 2020-07-06 16:00:00 Ulises rial [place] Diastolic (mm Hg) 2020-07-06 16:00:00 Mem orial [place] Heart Rate 2020-07-06 16:00:00 [facility] [place] Respitory Rate 2020-07-06 16:00:00 Memori al [place] Height 2020-07-06 16:00:00 175.26 cm [facility] Weight 2020-07-06 16:00:00 [facility] BMI Calculated 2020-07-06 16:00:00 Memori al [place] Systolic (mm Hg) 2020-06-14 14:02:00 Ulises rial Robin Diastolic (mm Hg) 2020-06-14 14:02:00 Mem orial [place] Heart Rate 2020-06-14 14:02:00 [facility] Respitory Rate 2020-06-14 14:02:00 Memori al [place] Height 2020-06-14 14:02:00 175.26 cm [facility] Weight 2020-06-14 14:02:00 [facility] [place] BMI Calculated 2020-06-14 14:02:00 Memori al [place] Systolic (mm Hg) 2020-05-03 20:50:00 Ulises rial Robin Diastolic (mm Hg) 2020-05-03 20:50:00 Mem orial [place] Heart Rate 2020-05-03 20:50:00 [facility] [place] Respitory Rate 2020-05-03 20:50:00 Memori al [place] Height 2020-05-03 20:50:00 175.26 cm [facility] [place] Weight 2020-05-03 20:50:00 [facility] [place] BMI Calculated 2020-05-03 20:50:00 Memori al Robin Height 2020-01-14 16:41:00 167.64 cm [facility] [place] Weight 2020-01-14 16:41:00 [facility] [place] BMI Calculated 2020-01-14 16:41:00 Memori al [place] Systolic (mm Hg) 2020-01-14 16:41:00 Ulises rial [place] Diastolic (mm Hg) 2020-01-14 16:41:00 Mem orial [place] Heart Rate 2020-01-14 16:41:00 [facility] Respitory Rate 2020-01-14 16:41:00 Memori al [place] Systolic (mm Hg) 2019-10-22 14:06:00 Ulises rial Robin Diastolic (mm Hg) 2019-10-22 14:06:00 Mem orial Robin Heart Rate 2019-10-22 14:06:00 [facility] [place] Respitory Rate 2019-10-22 14:06:00 Memori al [place] Height 2019-10-22 14:06:00 170.18 cm [facility] Weight 2019-10-22 14:06:00 [facility] BMI Calculated 2019-10-22 14:06:00 Memori al [place] Systolic (mm Hg) 2018-10-21 14:43:00 Ulises rial [place] Diastolic (mm Hg) 2018-10-21 14:43:00 Mem orial Robin Systolic (mm Hg) 2018-10-21 14:18:00 Ulises rial Robin Diastolic (mm Hg) 2018-10-21 14:18:00 Mem orial Robin Heart Rate 2018-10-21 14:18:00 [facility] [place] Respitory Rate 2018-10-21 14:18:00 Memori al Robin Height 2018-10-21 14:18:00 170.18 cm [facility] [place] Weight 2018-10-21 14:18:00 [facility] [place] BMI Calculated 2018-10-21 14:18:00 Joaquin Wagoner Procedures Procedure Date / Time Performed Performing Clinician [facility] e Aortic valve replacement Mihaela Kelly and plication of ascending aorta Plan of Care Planned Activity Planned Date Details Comments Source Future Scheduled 2022-11-08 Influenza Vaccine (#1) [facility] 00:00:00 [code = Influenza Medical Ce nter Vaccine (#1)] Future Scheduled 2022-08-23 COVID-19 VACCINE (#1) [facility] Test 08:54:01 [code = COVID-19 VACCINE (#1)] Future Scheduled 2022-08-23 SHINGLES VACCINES (1 Met [facility] Test 08:54:01 of 2) [code = SHINGLES VACCINES (1 of 2)] Future Scheduled 2022-08-23 65[facility] Test 08:54:01 VACCINE (1 - PCV) [code = 65+ PNEUMOCOCCAL VACCINE (1 - PCV)] Future Scheduled 2022-08-23 INFLUENZA VACCINE [facility] Test 08:54:01 [code = INFLUENZA VACCINE] Future Scheduled 2022-03-[address] [facility] Test 00:00:00 (12+) [code = Medical Center DEPRESSION SCREENING (12+)] Future Scheduled 2022-03-10 FALLS RISK SCREENING [facility] Test 00:00:00 [code = FALLS RISK Medical C enter SCREENING] Future Scheduled 2022-03-[address] [facility] Test 00:00:00 (12+) [code = Medical Center DEPRESSION SCREENING (12+)] Future Scheduled 2022-03-10 FALLS RISK SCREENING [facility] Test 00:00:00 [code = FALLS RISK Medical C enter SCREENING] Future Scheduled 2022-02-22 COVID-19 VACCINE (#1) [facility] Test 11:10:45 [code = COVID-19 VACCINE (#1)] Future Scheduled 2022-02-22 SHINGLES VACCINES (1 Met [facility] Test 11:10:45 of 2) [code = SHINGLES VACCINES (1 of 2)] Future Scheduled 2022-02-22 65+ [facility]OCOCCAL [facility] Test 11:10:45 VACCINE (1 - PCV) [code [...] 00:00:00 measurement Medical Center (procedure) [code = 74002599] Future Scheduled 2020-10-[address] [facility] Test 00:00:00 measurement Medical Center (procedure) [code = 32064541] Future Scheduled 2019-03-[address] [facility] 00:00:00 WELLNESS (YEAR 2 or Medical Center FIRST YEAR if no IPPE) [code = MEDICARE ANNUAL WELLNESS (YEAR 2 or FIRST YEAR if no IPPE)] Future Scheduled 2019-03-[address] [facility] Test 00:00:00 WELLNESS (YEAR 2 or Medical Center FIRST YEAR if no IPPE) [code = MEDICARE ANNUAL WELLNESS (YEAR 2 or FIRST YEAR if no IPPE)] Future Scheduled 1990 SHINGLES VACCINES ([address] [facility] Test 00:00:00 of 2) [code = SHINGLES Medic al Center VACCINES (1 of 2)] Future Scheduled 1990 SHINGLES VACCINES ([address] [facility] Test 00:00:00 of 2) [code = SHINGLES Medic al Center VACCINES (1 of 2)] Future Scheduled 1959-05-16 DTAP/TDAP/TD VACCINES [facility] 00:00:00 (1 - Tdap) [code = Medical C enter DTAP/TDAP/TD VACCINES (1 - Tdap)] Future Scheduled 1959-05-16 DTAP/TDAP/TD VACCINES [facility] 00:00:00 (1 - Tdap) [code = Medical C enter DTAP/TDAP/TD VACCINES (1 - Tdap)] Future Scheduled [address] [facility] Test 00:00:00 Counseling and Medical Cente r Screening (12+) [code = Tobacco Cessation Counseling and Screening (12+)] Future Scheduled [address] [facility] Test 00:00:00 Counseling and Medical Cente r Screening (12+) [code = Tobacco Cessation Counseling and Screening (12+)] Future Scheduled [address] EYE EXAM [facility] Test 00:00:00 [code = DIABETIC EYE Medical Center EXAM] Future Scheduled [address] [facility] Test 00:00:00 examination Medical Center (regime/therapy) [code = 728829370] Future Scheduled 1950 Urine screening for [facility] Test 00:00:00 protein (procedure) Medical Center [code = 575253493] Future Scheduled [address] EYE EXAM [facility] Test 00:00:00 [code = DIABETIC EYE Medical Center EXAM] Future Scheduled [address] [facility] Test 00:00:00 examination Medical Center (regime/therapy) [code = 199682695] Future Scheduled 1950 Urine screening for [facility] Test 00:00:00 protein (procedure) Medical Center [code = 290753583] Future Scheduled 1946 PNEUMOCOCCAL 65+ YRS [facility] Test 00:00:00 (1 - PCV) [code = Medical Ce nter PNEUMOCOCCAL 65+ YRS (1 - PCV)] Future Scheduled 1946 PNEUMOCOCCAL 65+ YRS [facility] Test 00:00:00 (1 - PCV) [code = Medical Ce nter PNEUMOCOCCAL 65+ YRS (1 - PCV)] Future Scheduled 1940 COVID-19 VACCINE (#1) [facility] 00:00:00 [code = COVID-[address] VACCINE (#1)] Future Scheduled 1940 COVID-19 VACCINE (#1) [facility] 00:00:00 [code = COVID-[address] VACCINE (#1)] Encounters Start End Encounter Admission Attending Care Care Encounter Source Date/Time Date/Time Type Type Clinicians Facility Department ID 2022-08-19 Outpatient TUNDE Jones [facility] [id number] Common 10:58:03 Kevin [id number] [facility] 2020-04-21 Inpatient EL MATILDEZOE, [facility] PM\\T\\R [id number] SLE 15:40:00 UVNICKOLASOGLESLEY 2020-04-19 Inpatient ER JAYCEE [facility] Med [id number] SLE 18:35:00 ANNISE 2021-11-16 2021-11-16 Ambulatory nullFlavo MNA [id number] Memoria 15:30:00 15:30:00 Pre-Reg r Neurology 17 l Abhinav Kelly 2021-11-16 2021-11-16 Ambulatory nullFlavo MNA [id number] Memoria 15:30:00 15:30:00 Pre-Reg r Neurology 17 l Abhinav Kelly 2021-11-16 2021-11-16 Outpatient MHIE IE [id number] Memoria 10:30:00 10:30:00 17 christel Kelly 2021-11-16 2021-11-16 [id number] 10:30:00 10:30:00 Jaycob 17 Charlie 2021-08-16 2021-08-17 Outpatient nullFlavo MNA [id number] Memoria 15:30:00 04:59:59 r Neurology 16 l Abhinav Kelly 2021-08-16 2021-08-17 Outpatient nullFlavo MNA [id number] Memoria 15:30:00 04:59:59 r Neurology 16 l Abhinav Kelly 2021-08-16 2021-08-16 Outpatient EMERY WorleyMOSCHER MISCHER [id number] 10:30:00 23:59:59 Jaycob 16 Charlie 2021-08-16 2021-08-16 Outpatient IE NICKOLAS [id number] Memoria 10:30:00 10:30:00 16 christel Kelly 2021-02-15 2021-02-16 Outpatient nullFlavo MNA [id number] Memoria 16:30:00 05:59:59 r Neurology 15 l Abhinav Kelly 2021-02-15 2021-02-16 Outpatient nullFlavo MNA [id number] Memoria 16:30:00 05:59:59 r Neurology 15 l Abhinav Kelly 2021-02-15 2021-02-15 Outpatient EMERY WorleyMOSCHER MISCHER [id number] 10:30:00 23:59:59 Jaycob 15 Charlie 2021-02-15 2021-02-15 Outpatient MHIE IE [id number] Memoria 10:30:00 10:30:00 15 christel Kelly 2020-10-19 2020-10-20 Outpatient nullFlavo MNA [id number] Memoria 15:30:00 04:59:59 r Neurology 14 l Abhinav Kelly 2020-10-19 2020-10-20 Outpatient nullFlavo MNA [id number] Memoria 15:30:00 04:59:59 r Neurology 14 l Abhinav Kelly 2020-10-19 2020-10-19 [id number] 10:30:00 23:59:59 Jaycob 14 Charlie 2020-10-19 2020-10-19 Outpatient MHIE MHIE [id number] Memoria 10:30:00 10:30:00 14 christel Kelly 2020-08-17 2020-08-18 Outpatient nullFlavo MNA [id number] Memoria 15:45:00 04:59:59 r Neurology 13 l Abhinav Kelly 2020-08-17 2020-08-18 Outpatient nullFlavo MNA [id number] Memoria 15:45:00 04:59:59 r Neurology 13 l Abhinav Kelly 2020-08-17 2020-08-17 [id number] 10:45:00 23:59:59 Jaycob 13 Charlie 2020-08-17 2020-08-17 Outpatient MHIE MHIE [id number] Memoria 10:45:00 10:45:00 13 christel Kelly 2020-07-13 2020-07-13 Ambulatory nullFlavo MNA [id number] Memoria 15:30:00 15:30:00 Pre-Reg r Neurology 08 l Abhinav Kelly 2020-07-13 2020-07-13 Ambulatory nullFlavo MNA [id number] Memoria 15:30:00 15:30:00 Pre-Reg r Neurology 08 l Abhinav De Oliveiraann 2020-07-13 2020-07-13 Outpatient MHIE MHIE [id number] Memoria 10:30:00 10:30:00 08 christel Robin 2020-07-13 2020-07-13 [id number] 10:30:00 10:30:00 Jaycob 08 Charlie 2020-07-06 2020-07-07 Outpatient nullFlavo MNA [id number] Memoria 15:30:00 04:59:59 r Neurology 12 christel Kelly 2020-07-06 2020-07-07 Outpatient nullFlavo MNA [id number] Memoria 15:30:00 04:59:59 r Neurology 12 christel Kelly 2020-07-06 2020-07-06 [facility] 006 [id number] 10:30:00 23:59:59 Jaycob 12 Charlie 2020-07-06 2020-07-06 Outpatient MHIE IE [id number] Memoria 10:30:00 10:30:00 12 christel Kelly 2020-06-15 2020-06-16 Outpatient nullFlavo MNA [id number] Memoria 18:00:00 04:59:59 r Neurology 11 l Abhinav Kelly 2020-06-15 2020-06-16 Outpatient nullFlavo MNA [id number] Memoria 18:00:00 04:59:59 r Neurology 11 l Abhinav Kelly 2020-06-15 2020-06-15 [facility] [id number] 13:00:00 23:59:59 Jaycob 11 Charlie 2020-06-15 2020-06-15 Outpatient MHIE NICKOLAS [id number] Memoria 13:00:00 13:00:00 11 christel Kelly 2020-06-14 2020-06-15 Outpatient nullFlavo MNA [id number] Memoria 14:00:00 04:59:59 r Neurology 10 l Abhinav Kelly 2020-06-14 2020-06-15 Outpatient nullFlavo MNA [id number] Memoria 14:00:00 04:59:59 r Neurology 10 christel Kelly 2020-06-14 2020-06-14 [facility] [id number] 09:00:00 23:59:59 Jaycob 10 Charlie 2020-06-14 2020-06-14 Outpatient MHIE MHIE [id number] Memoria 09:00:00 09:00:00 10 l Alpine 2020-05-12 2020-05-12 Outpatient HUGO BLAS, PAUL SLEH [id number] SLEH 00:00:00 00:00:00 SHANE 2020-05-03 2020-05-04 Outpatient nullFlavo MNA [id number] Memoria 20:30:00 05:59:59 r Neurology 09 l Abhinav Robin 2020-05-03 2020-05-04 Outpatient nullFlavo MNA [id number] Memoria 20:30:00 05:59:59 r Neurology 09 l Abhinav Robin 2020-05-03 2020-05-03 [facility] [id number] 14:30:00 23:59:59 Jaycob 09 Charlie 2020-05-03 2020-05-03 Outpatient MHIE IE [id number] Memoria 14:30:00 14:30:00 09 christel Robin 2020-01-14 2020-01-15 Outpatient nullFlavo MNA [id number] Memoria 16:30:00 05:59:59 r Neurology 07 l Pansey Alpine 2020-01-14 2020-01-15 Outpatient nullFlavo MNA [id number] Memoria 16:30:00 05:59:59 r Neurology 07 l Pansey Robin 2020-01-14 2020-01-14 Outpatient JACKI WorleySCHER [facility] [id number] 10:30:00 23:59:59 Jaycob 07 Charlie 2020-01-14 2020-01-14 Outpatient MHIE IE [id number] Memoria 10:30:00 10:30:00 07 l Alpine 2019-10-22 2019-10-23 Outpatient nullFlavo MNA [id number] Memoria 14:00:00 04:59:59 r Neurology 06 l Pansey Alpine 2019-10-22 2019-10-23 Outpatient nullFlavo MNA [id number] Memoria 14:00:00 04:59:59 r Neurology 06 l Pansey Robin 2019-10-22 2019-10-22 Outpatient EMERY WorleyMISCHER [facility] [id number] 09:00:00 23:59:59 Jaycob 06 Charlie 2019-10-22 2019-10-22 Ambulatory nullFlavo MNA [id number] Memoria 14:00:00 14:00:00 Pre-Reg r Neurology 05 christel La Robin 2019-10-22 2019-10-22 Ambulatory nullFlavo MNA [id number] Memoria 14:00:00 14:00:00 Pre-Reg r Neurology 05 l Pansey Robin 2019-10-22 2019-10-22 Outpatient MHIE IE [id number] Memoria 09:00:00 09:00:00 05 christel Alpine 2019-10-22 2019-10-22 Outpatient MHIE IE [id number] Memoria 09:00:00 09:00:00 06 christel Robin 2019-10-22 2019-10-22 [facility] [id number] 09:00:00 09:00:00 Jaycob 05 Charlie 2018-10-21 2018-10-22 Outpatient nullFlavo MNA [id number] Memoria 14:00:00 04:59:59 r Neurology 04 christel Abhinav Kelly 2018-10-21 2018-10-22 Outpatient nullFlavo MNA [id number] Memoria 14:00:00 04:59:59 r Neurology 04 christel Abhinav Kelly 2018-10-21 2018-10-21 Out[facility]ilda [facility] [id number] 09:00:00 23:59:59 Jaycob Jamie Guerra 2018-10-21 2018-10-21 Outpatient MHIE IE [id number] Memoria 09:00:00 09:00:00 04 christel Kelly 2018-08-12 2018-08-[address] [facility] [id number] [facility] 00:00:00 00:00:00 SHINE 2018-07-29 2018-07-29 Ambulatory nullFlavo MNA [id number] Memoria 14:15:00 14:15:00 Pre-Reg r Neurology 03 l Abhinav Kelly 2018-07-29 2018-07-29 Ambulatory nullFlavo MNA [id number] Memoria 14:15:00 14:15:00 Pre-Reg r Neurology 03 l Abhinav Kelly 2018-07-29 2018-07-29 Outpatient MHIE IE [id number] Memoria 09:15:00 09:15:00 03 christel Kelly 2018-07-29 2018-07-29 Outpatient Brunilda [facility] [id number] 09:15:00 09:15:00 Jaycob Lona Guerra 2018-02-04 2018-02-06 Phone nullFlavo MNA [id number] Memoria 17:54:00 05:59:59 Message r Neurology 01 christel Kelly 2018-02-04 2018-02-06 Phone nullFlavo MNA [id number] Memoria 17:54:00 05:59:59 Message r Neurology 01 christel Kelly 2018-02-04 2018-02-05 Outpatient M[facility]ER [facility] [id number] 11:54:00 23:59:59 2017-10-29 2017-10-29 Outpatient MHIE MHIE [id number] Memoria 09:15:00 09:15:00 02 christel Alpine 2017-10-29 2017-10-29 Outpatient MHIE MHIE [id number] Memoria 09:15:00 09:15:00 02 christel Robin 2017-08-21 2017-08-21 Outpatient MHIE MHIE [id number] Memoria 09:00:00 09:00:00 01 christel Robin 2017-08-21 2017-08-21 Outpatient MHIE MHIE [id number] Memoria 09:00:00 09:00:00 01 christel Robin 2017-04-23 2017-04-23 Outpatient MHIE MHIE [id number] Memoria 10:00:00 10:00:00 00 christel Robin 2017-04-23 2017-04-23 Outpatient MHIE MHIE [id number] Memoria 10:00:00 10:00:00 00 christel Robin Results Test Description Test Time Test Comments Results Result Comments Source POCT-GLUCOSE METER 2020-04-28 06:37:00 Test Item Value Reference Range Interpretation Comme nts POC-GLUCOSE METER (BEVIDYA) 112 mg/dL 70-110 H : TESTED AT [address] (test code = 1538) [place] [address]: Individual Pension Consultant/Techni walt ID = [id number] for Antonina Rose POCT-GLUCOSE [id number] 17:09:00 Test Item Value Reference Range Interpretation Comments POC-GLUCOSE METER 126 mg/dL 70-110 H : TESTED A T [facility] (BEAKER) (test code CAMBRIDG E BLDG A, = 1538) [place] [address]: Individual Pension Consultant/Techni walt ID = [id number] for Bisi Andujar POCT-GLUCOSE [id number] 06:49:00 Test Item Value Reference Range Interpretation Comments POC-GLUCOSE METER 92 mg/dL 70-110 : TESTED A T [facility] (BEAKER) (test code = CAMBRI DGE BLDG A, 1538) [place] [address]: Individual Pension Consultant/Techni walt ID = [id number] for ETHAN HOFF SARS-COV2/RT-PCR ([facility])2020-04-27 05:38:00 Test Item Value Reference Range Interpretation Comments SARS-COV2/RT-PCR (test code Negative Not Detected, Negative, = 7896868) See external report for linked test SARS-COV-2 PERFORMING LAB [facility] (test code = 3435182) Negative results do not preclude SARS-CoV-2 infection [...] of the Act.Fact Sheet for Healthcare Pro viders:https://www.[employer]com/Documents/Xpert%20Xpress%20SARS%20CoV-2/Fact%20Sh eets/302-3802%95ZBLQ-YOX-7%20HEALTHCARE%20PROVIDERS%20FACT%20SHEET.pdfFact Sheet for Healthcare Patients:https://www.[employer]/Documents/Xpert%20Xpress%20SARS%20CoV-2/Fact%20Sheets/302-3801%20SARS-COV -2%20PATIENT%20FACT%20SHEET.pdfPerforming Laboratory:[place] [address], [place] [address]UZEJ-SWHKBCZ [id number] 21:25:00 Test Item Value Reference Range Interpretation Comments POC-GLUCOSE METER 104 mg/dL 70-110 : TESTED A T [facility] (BEAKER) (test code CAMBRIDG E BLDG A, = 1538) [place] [address]: Individual Pension Consultant/Techni walt ID = [id number] for ETHAN HOFF POCT-GLUCOSE [id number] 17:03:00 Test Item Value Reference Range Interpretation Comments POC-GLUCOSE METER 114 mg/dL 70-110 H : TESTED A T [facility] (BEAKER) (test code CAMBRIDG E BLDG A, = 1538) [place] [address]: Individual Pension Consultant/Techni walt ID = [id number] for JATIN S, SHANNON POCT-GLUCOSE [id number] 11:05:00 Test Item Value Reference Range Interpretation Comments POC-GLUCOSE METER 132 mg/dL 70-110 H : TESTED A T [facility] (BEAKER) (test code CAMBRIDG E BLDG A, = 1538) [place] [address] 0: Individual Pension Consultant/Techni walt ID = [id number] for JATIN S, SHANNON POCT-GLUCOSE [id number] 06:37:00 Test Item Value Reference Range Interpretation Comments POC-GLUCOSE METER 119 mg/dL 70-110 H : TESTED A T [facility] (BEAKER) (test code CAMBRIDG E BLDG A, = 1538) [place] [address] 0: Individual Pension Consultant/Techni walt ID = [id number] for CAMF IELD, CRYSTAL POCT-GLUCOSE [id number] 20:54:00 Test Item Value Reference Range Interpretation Comments POC-GLUCOSE METER 142 mg/dL 70-110 H : TESTED A T [facility] (BEAKER) (test code CAMBRIDG E BLDG A, = 1538) [place] [address] 0: Individual Pension Consultant/Techni walt ID = [id number] for CAMF IELD, CRYSTAL POCT-GLUCOSE [id number] 17:18:00 Test Item Value Reference Range Interpretation Comments POC-GLUCOSE METER 120 mg/dL 70-110 H : TESTED A T [facility] (BEAKER) (test code CAMBRIDG E BLDG A, = 1538) [place] [address]: Individual Pension Consultant/Techni walt ID = [id number] for CEDRIC JAIME, NEO ELBA POCT-GLUCOSE [id number] 11:59:00 Test Item Value Reference Range Interpretation Comments POC-GLUCOSE METER 106 mg/dL 70-110 : TESTED A T [facility] (BEAKER) (test code CAMBRIDG E BLDG A, = 1538) [place] [address] 0: Individual Pension Consultant/Techni walt ID = [id number] for CEDRIC JAIME, NEO ELBA POCT-GLUCOSE [id number] 06:29:00 Test Item Value Reference Range Interpretation Comments POC-GLUCOSE METER 113 mg/dL 70-110 H : TESTED A T [facility] (BEAKER) (test code CAMBRIDG E BLDG A, = 1538) [place] [address] 0: Individual Pension Consultant/Techni walt ID = [id number] for CAMF IELD, CRYSTAL POCT-GLUCOSE [id number] 21:06:00 Test Item Value Reference Range Interpretation Comments POC-GLUCOSE METER 139 mg/dL 70-110 H : TESTED A T [facility] (BEAKER) (test code CAMBRIDG E BLDG A, = 1538) [place] [address] 0: Individual Pension Consultant/Techni walt ID = [id number] for CAMF IELD, CRYSTAL POCT-GLUCOSE [id number] 16:51:00 Test Item Value Reference Range Interpretation Comments POC-GLUCOSE METER 128 mg/dL 70-110 H : TESTED A T [facility] (BEAKER) (test code CAMBRIDG E BLDG A, = 1538) [place] [address]: Individual Pension Consultant/Techni walt ID = [id number] for KANDIS LUO POCT-GLUCOSE [id number] 11:58:00 Test Item Value Reference Range Interpretation Comments POC-GLUCOSE METER 133 mg/dL 70-110 H : TESTED A T [facility] (BEAKER) (test code CAMBRIDG E BLDG A, = 1538) [place] [address]: Individual Pension Consultant/Techni walt ID = [id number] for FADUMO CAMPBELL POCT-GLUCOSE [id number] 06:33:00 Test Item Value Reference Range Interpretation Comments POC-GLUCOSE METER 102 mg/dL 70-110 : TESTED A T [facility] (BEAKER) (test code CAMBRIDG E BLDG A, = 1538) [place] [address]: Individual Pension Consultant/Techni walt ID = [id number] for CAMF IELD, CRYSTAL BASIC METABOLIC [id number] 04:59:00 Test Item Value Reference Range Interpretation [...] NOT APPLICABLE FOR DIALYSIS PATIEN TS. POCT-GLUCOSE [id number] 20:55:00 Test Item Value Reference Range Interpretation Comments POC-GLUCOSE METER 134 mg/dL 70-110 H : TESTED A T [facility] (BEAKER) (test code CAMBRIDG E BLDG A, = 1538) [place] [address] 0: Individual Pension Consultant/Techni walt ID = [id number] for CAMF IELD, CRYSTAL POCT-GLUCOSE [id number] 16:44:00 Test Item Value Reference Range Interpretation Comments POC-GLUCOSE METER 137 mg/dL 70-110 H : TESTED A T [facility] (BEAKER) (test code CAMBRIDG E BLDG A, = 1538) [place] [address]: Individual Pension Consultant/Techni walt ID = [id number] for ORIJOLA-SABADO, THORNE POCT-GLUCOSE [id number] 11:49:00 Test Item Value Reference Range Interpretation Comments POC-GLUCOSE METER 102 mg/dL 70-110 : TESTED A T [facility] (BEAKER) (test code CAMBRIDG E BLDG A, = 1538) [place] [address] 0: Individual Pension Consultant/Techni walt ID = [id number] for ORIJOLA-SABADO, THORNE POCT-GLUCOSE [id number] 06:35:00 Test Item Value Reference Range Interpretation Comments POC-GLUCOSE METER 140 mg/dL 70-110 H : TESTED A T [facility] (BEAKER) (test code CAMBRIDG E BLDG A, = 1538) [place] [address] 0: Individual Pension Consultant/Techni walt ID = [id number] for CAMF IELD, CRYSTAL POCT-GLUCOSE [id number] 21:02:00 Test Item Value Reference Range Interpretation Comments POC-GLUCOSE METER 132 mg/dL 70-110 H : TESTED A T [facility] (BEAKER) (test code CAMBRIDG E BLDG A, = 1538) [place] [address] 0: Individual Pension Consultant/Techni walt ID = [id number] for CAMF IELD, CRYSTAL POCT-GLUCOSE [id number] 16:57:00 Test Item Value Reference Range Interpretation Comments POC-GLUCOSE METER 119 mg/dL 70-110 H : TESTED A T [facility] (BEAKER) (test code CAMBRIDG E BLDG A, = 1538) [place] [address]: Individual Pension Consultant/Techni walt ID = [id number] for RADHA PHILLIPS AMAUCHE POCT-GLUCOSE [id number] 12:14:00 Test Item Value Reference Range Interpretation Comments POC-GLUCOSE METER 98 mg/dL 70-110 : TESTED A T [facility] (BEAKER) (test code = CAMBRI DGE BLDG A, 1538) [place] [address]: Individual Pension Consultant/Techni walt ID = [id number] for MARTHA VINES VITAMIN B12 AND [id number] 07:28:00 Test Item Value Reference Range Interpretation Comments VITAMIN B12 368 pg/mL 211-911 (BEAKER) (test code = 774) FOLATE (BEAKER) 10.78 ng/mL See_Comment [Automated message] (test code = 362) The system which generated this result transmitted ref erence range: >=5.40. The reference range was not used to interpr et this result as normal/abnormal . COMPREHENSIVE METABOLIC [id number] 06:55:00 Test Item Value Reference Range Interpretation [...] S NOT APPLICABLE FOR DIALYSIS PATIEN TS. [id number] 06:55:00 Test Item Value Reference Range Interpretation Comments PHOSPHORUS (BEAKER) 4.0 mg/dL 2.3-4.7 Specimen slightly (test code = 604) hemolyzed POCT-GLUCOSE [id number] 06:42:00 Test Item Value Reference Range Interpretation Comments POC-GLUCOSE METER 124 mg/dL 70-110 H : TESTED A T [facility] (BEAKER) (test code SYED E BLDG A, = 1538) [place] [address]: Individual Pension Consultant/Techni walt ID = [id number] for CORINA RAMESHO (V), CELSO CBC W/PLT COUNT & AUTO [id number] 06:37:00 Test Item Value Reference Range Interpretation [...] PERCENT (BEAKER) (test code = 2801) POCT-GLUCOSE [id number] 21:15:00 Test Item Value Reference Range Interpretation Comments POC-GLUCOSE METER 149 mg/dL 70-110 H : TESTED A T [facility] (BEAKER) (test code CAMBRIDG E BLDG A, = 1538) [place] [address] 0: Individual Pension Consultant/Techni walt ID = [id number] for CORINA ANDO (V), CELSO POCT-GLUCOSE [id number] 17:17:00 Test Item Value Reference Range Interpretation Comments POC-GLUCOSE METER 143 mg/dL 70-110 H : TESTED A T [facility] (BEAKER) (test code CAMBRIDG E BLDG A, = 1538) [place] [address]: Individual Pension Consultant/Techni walt ID = [id number] for XAVI FERNANDO, LIBORIO COMPREHENSIVE METABOLIC [id number] 07:44:00 Test Item Value Reference Range Interpretation [...] S NOT APPLICABLE FOR DIALYSIS PATIEN TS. Individual Pension Consultant ID - EMREJATIN [id number] 07:44:00 Test Item Value Reference Range Interpretation Comments MAGNESIUM (BEAKER) (test code = 2.1 mg/dL 1.6-2.6 627) Individual Pension Consultant ID - EMREJATIN [id number] 07:44:00 Test Item Value Reference Range Interpretation Comments PHOSPHORUS (BEAKER) (test code = 3.2 mg/dL 2.3-4.7 604) Individual Pension Consultant ID - HEATHER LCBC W/PLT COUNT & AUTO [id number] 07:00:00 Test Item Value Reference Range Interpretation [...] PERCENT (BEAKER) (test code = 2801) SARS-COV2/RT-PCR ([facility])2020-04-21 00:16:00 Test Item Value Reference Range Interpretation Comments SARS-COV2/RT-PCR (test Negative Not Detected, Negative, code = 8310406) See external report for linked test [facility]OV[facility] ([facility] = 2740784) Negative result for this test determines that [...] of the Act.Fact Sheet for Healthcare Prov iders:https://www.[employer]/sites/default/files/product/documents/Fact_Sheet_HC _Pgtrjfjua_Pjmt_DBKI-MyS-7.pdfFact Sheet for Healthcare Patients:https://www.[employer]/sites/default/files/product/docume nts/Oaem_Krtao_Yzbndaav_Ddql_BUZW-QkD-1.pdfPerforming Laboratory:[facility], [place] [address]OO, BRAIN, WITHOUT [id number] 18:05:00Unlisted Reason for Exam - Click Yes and Enter Reason Below->NoKA[facility] MARIELLEJEANNETTE CARPENTER : 1940 Sex: MFINAL REPORT MR, BRAIN, [...] 18:05:36 CT BRAIN WITHOUT IV CONTRAST - [id number] 08:18:00Unlisted Reason for Exam - Click Yes and Enter Reason Below->No [facility] : 1940 Sex: MFINAL REPORT CT BRAIN [...] MDReport Verified Date/Time: 04/20/2020 08:18:01 Reading Location: [facility] C013V Neuro Reading Room GLOBIN [id number] 07:47:00 Test Item Value Reference Range Interpretation Comments HEMOGLOBIN A1C (HALLIE) (test code = 6.7 % 4.3-6.1 H 368) [id number] 05:43:00 Test Item Value Reference Range Interpretation Comments PARTIAL THROMBOPLASTIN TIME 37.3 seconds 22.5-36.0 H (HALLIE) (test code = 760) PROTHROMBIN [id number] 05:42:00 Test Item Value Reference Range Interpretation Comments PROTIME (BEAKER) 15.9 seconds 11.9-14.2 H (test code = 759) INR (BEAKER) (test 1.31 See_Comment [Automat ed message] code = 370) The system [employer] generated this result transmitted ref erence range: [...] patients wiht mechanical heart valves.TSH/FREE T4 IF [id number] 05:39:00 Test Item Value Reference Range Interpretation Comments THYROID STIMULATING HORMONE 0.510 uIU/mL 0.350-4.940 (BEAKER) (test code = 772) Individual Pension Consultant ID - ADELAIDE MCOMPREHENSIVE METABOLIC [id number] 05:23:00 Test Item Value Reference Range Interpretation [...] S NOT APPLICABLE FOR DIALYSIS PATIEN TS. Individual Pension Consultant ID - [id number] 05:23:00 Test Item Value Reference Range Interpretation Comments MAGNESIUM (BEAKER) (test code = 1.9 mg/dL 1.6-2.6 627) Individual Pension Consultant ID - [id number] 05:23:00 Test Item Value Reference Range Interpretation Comments PHOSPHORUS (BEAKER) (test code = 2.9 mg/dL 2.3-4.7 604) Individual Pension Consultant ID - SMLIPID [id number] 05:23:00 Test Item Value Reference Range Interpretation [...] Borderline 130-159 High 160-189 Very High >=190 Individual Pension Consultant ID - SMCBC W/PLT COUNT & AUTO [id number] 05:04:00 Test Item Value Reference Range Interpretation [...] PERCENT (BEAKER) (test code = 2801) POCT-GLUCOSE [id number] 16:36:00 Test Item Value Reference Range Interpretation Comments POC-GLUCOSE METER 108 mg/dL 70-110 TESTED AT [facility] 6720 (BEAKER) (test code = TABATHA [place] 1538) [address] BASIC METABOLIC [id number] 08:25:00 Test Item Value Reference Range Interpretation [...] PATIEN TS. CBC W/PLT COUNT & AUTO [id number] 05:31:00 Test Item Value Reference Range Interpretation [...] PERCENT (BEAKER) (test code = 2801) POCT-GLUCOSE [id number] 23:32:00 Test Item Value Reference Range Interpretation Comments POC-GLUCOSE METER 95 mg/dL 70-110 TESTED AT [facility] 67 ([facility]) (test code = TABATHA Lozano [facility] [address] 1538) POCT-GLUCOSE [id number] 17:21:00 Test Item Value Reference Range Interpretation Comments POC-GLUCOSE METER 104 mg/dL 70-110 TESTED AT [facility] 6720 ([facility]) (test code = [facility] 1538) [address] [id number] 10:35:00 Test Item Value Reference Range Interpretation Comments MAGNESIUM (BEAKER) (test code = 1.9 mg/dL 1.6-2.6 627) POCT-GLUCOSE [id number] 09:09:00 Test Item Value Reference Range Interpretation Comments POC-GLUCOSE METER 122 mg/dL 70-110 H TESTED AT [facility] 6720 (BEAKER) (test code = TABATHA [place]oz[place] 1538) [address] BASIC METABOLIC [id number] 02:49:00 Test Item Value Reference Range Interpretation [...] APPLICABLE FOR DIALYSIS PATIEN TS. LACTIC ACID, [id number] 02:46:00 Test Item Value Reference Range Interpretation Comments LACTATE BLOOD VENOUS (2) (BEAKER) 2.0 mmol/L 0.5-2.2 (test code = 2872) LACTIC ACID, [id number] 22:31:00 Test Item Value Reference Range Interpretation Comments LACTATE BLOOD VENOUS (2) (BEAKER) 2.1 mmol/L 0.5-2.2 (test code = 2872) POCT-GLUCOSE [id number] 21:55:00 Test Item Value Reference Range Interpretation Comments POC-GLUCOSE METER 168 mg/dL 70-110 H TESTED AT [facility] 6720 (BEAKER) (test code = TABATHA Lozano [facility] 1538) [address] [id number] 20:15:00 Test Item Value Reference Range Interpretation Comments MAGNESIUM (BEAKER) (test code = 1.9 mg/dL 1.6-2.6 627) BASIC METABOLIC [id number] 20:15:00 Test Item Value Reference Range Interpretation [...] PATIEN TS. CBC W/PLT COUNT & AUTO [id number] 20:14:00 Test Item Value Reference Range Interpretation [...] (BEAKER) (test code = 2801) POCT-LACTIC ACID, [id number] 19:45:00 Test Item Value Reference Range Interpretation Comments POC-LACTIC ACID, 2.4 mmol/L 0.9-1.7 H TESTED AT [facility] 6720 VENOUS (BEAKER) (test [facility] code = 2805) [address] POCT-GLUCOSE [id number] 19:25:00 Test Item Value Reference Range Interpretation Comments POC-GLUCOSE METER 204 mg/dL 70-110 H TESTED AT [place] [address] ([facility]) (test code = [facility] 1538) [address] POCT-GLUCOSE [id number] 17:24:00 Test Item Value Reference Range Interpretation Comments POC-GLUCOSE METER 149 mg/dL 70-110 H TESTED AT [place] [address] ([facility]) (test code = [facility] 1538) [address] RAD, CHEST, 1 VIEW, NON [id number] 12:01:00Reason for exam:- >dyspneaShould this be performed at the bedside?->YesFINAL REPORT CLINICAL HISTORY: dyspnea TECHNIQUE: 1 view of the chest. COMPARISO N: 07/25/2018 IMPRESSION: Left lung base pleural-parenchymal opacity is unchanged. The right lung remains relatively well-aerated. The cardiomediastinal silhouette is magnified by technique with sternotomy wires. Signed: Alan Chi MDReport Verified Date/Time: 07/27/2018 12:01:19 Reading Location: [facility] Radiology Reading Room TISSUE [id number] 11:59:00Surgical Pathology Report Case: [id number] Authorizing Provider: Shine Talavera, Collected: 07/21/2018 1022 MD Ordering Location: [facility] Received: 07/21/2018 1159 PERIOPERATIVE SERVICES Pathologist: Davion Mallory MD Specimen: Aortic Valve HEART, AORTIC VALVE, VALVULECTOMY:LEAFLETS WITH SEVERE NODULAR CALCIFIC ATHEROSCLEROTIC THICKENING Signing Pathologist Direct Phone Line: [phone]; [phone] disease disease, aortic valve stenosis, etiology of cardiac valve disease unspecifiedAortic valveThe specimen is received in a single container in formalin labeled with the patient's information aswell as "aortic valve tissue". It contains two membranous portions of valvular tissue, one measuring3.5 x 1.5 x 0.2 cm and the other piece measuring 3.4 x 2.5 x 1.3 cm. Portion of the valvular tissue is conklin-white and glistening, but diffuse calcifications are seen. No vegetations or masses are appreciated. The specimen is submitted representatively in a single cassette following decalcification. RC/[id number] 11:30:00 Test Item Value Reference Range Interpretation Comments MAGNESIUM (HALLIE) (test code = 1.7 mg/dL 1.6-2.6 627) POCT-GLUCOSE [id number] 09:47:00 Test Item Value Reference Range Interpretation Comments POC-GLUCOSE METER 114 mg/dL 70-110 H TESTED AT [facility] 67 (BEAKER) (test code = [facility] 1538) [address] BASIC METABOLIC [id number] 05:37:00 Test Item Value Reference Range Interpretation [...] NOT APPLICABLE FOR DIALYSIS PATIEN TS. POCT-GLUCOSE [id number] 21:01:00 Test Item Value Reference Range Interpretation Comments POC-GLUCOSE METER 136 mg/dL 70-110 H TESTED AT [place] [id number] ([facility] (test code = [facility] 1538) [address] POCT-GLUCOSE [id number] 15:47:00 Test Item Value Reference Range Interpretation Comments POC-GLUCOSE METER 121 mg/dL 70-110 H TESTED AT [place] [address]120 ([facility]) (test code = [facility] 1538) [address] POCT-GLUCOSE [id number] 09:34:00 Test Item Value Reference Range Interpretation Comments POC-GLUCOSE METER 95 mg/dL 70-110 TESTED AT [place] [address]120 ([facility]) (test code = [facility] [address] 1538) BASIC METABOLIC [id number] 07:28:00 Test Item Value Reference Range Interpretation [...] 358) GLUCOSE RANDOM 107 mg/dL 70-105 H (AKER) (test code = 652) CALCIUM (BEAKER) 7.9 mg/dL 8.4-10.2 L (test code = 697) EGFR (BEAKER) (test 111 mL/min/1.73 ESTIM ATED GFR IS code = 1092) sq m NOT ACCURATE CREATININE CLEARANCE IN PREDICTING GLOMERULAR FILTRATION RATE . ESTIMATED GFR I S NOT APPLICABLE FOR DIALYSIS PATIEN TS. POCT-GLUCOSE [id number] 22:08:00 Test Item Value Reference Range Interpretation Comments POC-GLUCOSE METER 149 mg/dL 70-110 H TESTED AT [place] [address] ([facility]) (test code = [facility] 1538) [address] POCT-GLUCOSE [id number] 15:46:00 Test Item Value Reference Range Interpretation Comments POC-GLUCOSE METER 95 mg/dL 70-110 TESTED AT [place] [address] ([facility]) (test code = [facility] [address] 1538) B-TYPE NATRIURETIC FACTOR (BNP)2018-07-25 11:55:00 Test Item Value Reference Range Interpretation Comments B-TYPE NATRIURETIC PEPTIDE ([facility]) 301 pg/mL 0-100 H (test code = 700) RAD, CHEST, 1 VIEW, NON [id number] 11:29:00Reason for exam:->shortness of breathShould this be performed at the bedside?->YesFINAL REPORT Comparison: 07/24/2018 TECHNIQUE: Single view of the chest FINDINGS: Small left pleural effusion with adjacent airspace disease. Mild vascular congestion suspected elsewhere. Cardiac silhouette is enlarged. Postsurgical changes in the mediastinum noted. Signed: Aung Timmons MDReport Verified Date/Time: 07/25/2018 11:29:19 Reading Location: [address] Read [facility] Room [id number] 09:47:00 Test Item Value Reference Range Interpretation Comments MAGNESIUM (BEAKER) (test code = 1.9 mg/dL 1.6-2.6 627) BASIC METABOLIC [id number] 09:47:00 Test Item Value Reference Range Interpretation [...] NOT APPLICABLE FOR DIALYSIS PATIEN TS. POCT-GLUCOSE [id number] 08:41:00 Test Item Value Reference Range Interpretation Comments POC-GLUCOSE METER 115 mg/dL 70-110 H TESTED AT [facility] 6720 (BEAKER) (test code = [place] 8695) [address] CBC W/PLT COUNT & AUTO [id number] 06:04:00 Test Item Value Reference Range Interpretation [...] PERCENT (BEAKER) (test code = 2801) POCT-GLUCOSE [id number] 21:45:00 Test Item Value Reference Range Interpretation Comments POC-GLUCOSE METER 120 mg/dL 70-110 H TESTED AT [facility] 6720 (BEAKER) (test code = [place] 1538) [address] POCT-GLUCOSE [id number] 18:01:00 Test Item Value Reference Range Interpretation Comments POC-GLUCOSE METER 150 mg/dL 70-110 H TESTED AT [facility] 6720 (BEAKER) (test code = [place] 1538) [address] POCT-GLUCOSE [id number] 13:03:00 Test Item Value Reference Range Interpretation Comments POC-GLUCOSE METER 152 mg/dL 70-110 H TESTED AT [facility] 6720 (HALLIE) (test code = [place] [facility] 1538) [address] RAD, CHEST, 1 VIEW, NON [id number] 09:45:00Reason for exam:->pleural effShould this be performed at the bedside?->YesFINAL REPORT TECHNIQUE: Frontal chest radiograph dated 07/24/2018. CLINICAL HISTORY: Pleural effusion COMPARISON STUDY: Chest radiograph dated 07/22/2018 IMPRESSION:The extreme lateral left lung base is not included in the vrlqm-yo-vhou. A small left pleural effusion is suspected. Stable left lung base atelectasis. No pneumothorax. Cardiomediastinal silhouette is normal in size. No pulmonary edema. Midline sternotomy wires are intact and well aligned. Signed: Neel Hameport Verified Date/Time: 07/24/2018 09:45:08 Reading Location: [facility] Radiology Reading Room POCT-GLUCOSE [id number] 08:16:00 Test Item Value Reference Range Interpretation Comments POC-GLUCOSE METER 149 mg/dL 70-110 H TESTED AT [place] [address] ([facility]) (test code = [place] [facility] 1538) [address] [id number] 07:48:00 Test Item Value Reference Range Interpretation Comments PHOSPHORUS (BEAKER) (test code = 1.5 mg/dL 2.3-4.7 LL 604) [id number] 07:43:00 Test Item Value Reference Range Interpretation Comments MAGNESIUM (BEAKER) (test code = 1.8 mg/dL 1.6-2.6 627) BASIC METABOLIC [id number] 07:43:00 Test Item Value Reference Range Interpretation [...] PATIEN TS. CBC W/PLT COUNT & AUTO [id number] 06:04:00 Test Item Value Reference Range Interpretation [...] PERCENT (BEAKER) (test code = 2801) POCT-GLUCOSE [id number] 21:28:00 Test Item Value Reference Range Interpretation Comments POC-GLUCOSE METER 130 mg/dL 70-110 H TESTED AT [facility] 6720 (BEAKER) (test code = [place] 1538) [address] URINALYSIS W/ REFLEX URINE [id number] 18:20:00 Test Item Value Reference Range Interpretation [...] = 1574) Moderate SOURCE(BEAKER) (test code = 5179) POCT-GLUCOSE [id number] 14:57:00 Test Item Value Reference Range Interpretation Comments POC-GLUCOSE METER 135 mg/dL 70-110 H TESTED AT [facility] 6720 (BEAKER) (test code = [place] 1538) [address] B-TYPE NATRIURETIC FACTOR (BNP)2018-07-23 06:49:00 Test Item Value Reference Range Interpretation Comments B-TYPE NATRIURETIC PEPTIDE (BEAKER) 446 pg/mL 0-100 H (test code = 700) [id number] 06:09:00 Test Item Value Reference Range Interpretation Comments PHOSPHORUS (BEAKER) (test code = 2.4 mg/dL 2.3-4.7 604) [id number] 06:09:00 Test Item Value Reference Range Interpretation Comments MAGNESIUM (BEAKER) (test code = 2.0 mg/dL 1.6-2.6 627) BASIC METABOLIC [id number] 06:09:00 Test Item Value Reference Range Interpretation [...] NOT APPLICABLE FOR DIALYSIS PATIEN TS. CALCIUM, [id number] 05:57:00 Test Item Value Reference Range Interpretation Comments CALCIUM IONIZED (BEAKER) (test 1.03 mmol/L 1.12-1.27 L code = 698) PH, BLOOD (BEAKER) (test code = 7.44 1810) Check serum Ionized Calcium level after 4 hours after IV Calcium replacement.CBC W/PLT COUNT & AUTO [id number] 05:46:00 Test Item Value Reference Range Interpretation [...] = 2801) RAD, CHEST, 1 VIEW, NON [id number] 00:00:00Reason for exam:->sobShould this be performed at [...] MDReport Verified Date/Time: 07/23/2018 00:00:17 Reading Location: [address] Consult Reading Room POCT-GLUCOSE [id number] 21:49:00 Test Item Value Reference Range Interpretation Comments POC-GLUCOSE METER 133 mg/dL 70-110 H TESTED AT [place] [address] ([facility]) (test code = [facility] 1538) [address] POCT-GLUCOSE [id number] 16:55:00 Test Item Value Reference Range Interpretation Comments POC-GLUCOSE METER 156 mg/dL 70-110 H TESTED AT [place] [address] ([facility]) (test code = [facility] 1538) [address] POCT-GLUCOSE [id number] 11:33:00 Test Item Value Reference Range Interpretation Comments POC-GLUCOSE METER 164 mg/dL 70-110 H TESTED AT [place] [address] ([facility]) (test code = [facility] 6872) [address] [id number] 11:29:00 Test Item Value Reference Range Interpretation Comments PARTIAL THROMBOPLASTIN TIME 47.4 seconds 22.5-36.0 H (BEAKER) (test code = 760) PLATELET [id number] 11:14:00 Test Item Value Reference Range Interpretation Comments PLATELET COUNT (BEAKER) (test 105 K/CU MM 150-450 L code = 756) BASIC METABOLIC [id number] 05:57:00 Test Item Value Reference Range Interpretation [...] S NOT APPLICABLE FOR DIALYSIS PATIEN TS. [id number] 05:56:00 Test Item Value Reference Range Interpretation Comments PHOSPHORUS (BEAKER) (test code = 3.3 mg/dL 2.3-4.7 604) [id number] 05:56:00 Test Item Value Reference Range Interpretation Comments MAGNESIUM (BEAKER) (test code = 2.0 mg/dL 1.6-2.6 627) CBC W/PLT COUNT & AUTO [id number] 05:34:00 Test Item Value Reference Range Interpretation [...] (BEAKER) (test code = 2801) OXYGEN SATURATION, [id number] 05:24:00 Test Item Value Reference Range Interpretation Comments O2 SATURATION (MEASURED) (BEAKER) 62.1 % (test code = 1455) BLOOD GAS, [id number] 05:20:00 Test Item Value Reference Range Interpretation [...] 40.0 % RAD, CHEST, 1 VIEW, NON [id number] 04:49:00Reason for exam:->s/p cardiac surgeryShould this be performed at the bedside?->YesFINAL REPORT CLINICAL INDICATION: Postop Comparison: 07/21/2018 The cardiomediastinal contours are stable. The lung volumes are stable after extubation. Central pulmonary vascular prominence and bilateral parenchymal and left pleural opacities are similar to previous. There is no pneumothorax. Remaining support lines are stable. Signed: Kylah Ortizeport Verified Date/Time: 07/22/2018 04:49:49 Reading Location: [address] Reading Room POCT-GLUCOSE METER 2018-07-22 03:10:00 Test Item Value Reference Range Interpretation Comments POC-GLUCOSE METER 131 mg/dL 70-110 H TESTED AT [facility] 6720 (BEAKER) (test code = [place] 1538) [address] LACTIC ACID, [id number] 22:27:00 Test Item Value Reference Range Interpretation Comments LACTATE BLOOD ARTERIAL (2) 2.0 mmol/L 0.5-2.2 (BEAKER) (test code = 2874) [id number] 22:25:00 Test Item Value Reference Range Interpretation Comments MAGNESIUM (BEAKER) (test code = 2.2 mg/dL 1.6-2.6 627) SODIUM NA-STAT [id number] 22:07:00 Test Item Value Reference Range Interpretation Comments SODIUM (BEAKER) (test code = 381) 138 meq/L 135-148 POTASSIUM-STAT [id number] 22:07:00 Test Item Value Reference Range Interpretation Comments POTASSIUM (BEAKER) (test code = 4.1 meq/L 3.6-5.5 379) OXYGEN SATURATION, [id number] 22:07:00 Test Item Value Reference Range Interpretation Comments O2 SATURATION (MEASURED) (BEAKER) 59.7 % (test code = 1455) BLOOD GAS, [id number] 22:07:00 Test Item Value Reference Range Interpretation [...] (test code = 1819) 40.0 % GLUCOSE-STAT [id number] 22:07:00 Test Item Value Reference Range Interpretation Comments GLUCOSE RANDOM (BEAKER) (test code 113 mg/dL 70-110 H = 652) HGB/HCT (H&H) - STAT [id number] 22:07:00 Test Item Value Reference Range Interpretation Comments HEMOGLOBIN (BEAKER) (test code = 10.9 g/dL 13.0-16.8 L 410) HEMATOCRIT (BEAKER) (test code = 32.0 % 40.0-50.0 L 411) LACTIC ACID, [id number] 20:27:00 Test Item Value Reference Range Interpretation Comments LACTATE BLOOD ARTERIAL (2) 2.1 mmol/L 0.5-2.2 (BEAKER) (test code = 2874) [id number] 20:26:00 Test Item Value Reference Range Interpretation Comments POTASSIUM (BEAKER) (test code = 4.3 meq/L 3.5-5.1 379) [id number] 20:26:00 Test Item Value Reference Range Interpretation Comments GLUCOSE RANDOM (BEAKER) (test code 148 mg/dL 70-105 H = 652) BLOOD GAS, [id number] 20:14:00 Test Item Value Reference Range Interpretation [...] (test code = 1819) 60.0 % POCT-GLUCOSE [id number] 18:45:00 Test Item Value Reference Range Interpretation Comments POC-GLUCOSE METER 136 mg/dL 70-110 H TESTED AT [facility] 6720 (BEAKER) (test code = [place] 1538) [address] BLOOD GAS, [id number] 17:22:00 Test Item Value Reference Range Interpretation [...] (test code = 1819) 60.0 % POCT-GLUCOSE [id number] 16:40:00 Test Item Value Reference Range Interpretation Comments POC-GLUCOSE METER 159 mg/dL 70-110 H TESTED AT [facility] 6720 (BEAKER) (test code = [place] 1538) [address] [id number] 13:26:00 Test Item Value Reference Range Interpretation Comments MAGNESIUM (BEAKER) 2.4 mg/dL 1.6-2.6 Specimen slightly (test code = 627) hemolyzed [id number] 13:26:00 Test Item Value Reference Range Interpretation Comments PHOSPHORUS (BEAKER) 2.4 mg/dL 2.3-4.7 Specimen slightly (test code = 604) hemolyzed BASIC METABOLIC [id number] 13:26:00 Test Item Value Reference Range Interpretation [...] APPLICABLE FOR DIALYSIS PATIEN TS. LACTIC ACID, [id number] 13:24:00 Test Item Value Reference Range Interpretation Comments LACTATE BLOOD 2.7 mmol/L 0.5-2.2 H Specimen sligh tly ARTERIAL (2) (BEAKER) hemoly zed (test code = 2874) [id number] 13:19:00 Test Item Value Reference Range Interpretation Comments PARTIAL THROMBOPLASTIN TIME 38.9 seconds 22.5-36.0 H (BEAKER) (test code = 760) PROTHROMBIN [id number] 13:18:00 Test Item Value Reference Range Interpretation [...] mechanical heart valves.CBC W/PLT COUNT & AUTO [id number] 13:15:00 Test Item Value Reference Range Interpretation [...] = 2801) RAD, CHEST, 1 VIEW, NON [id number] 13:14:00Reason for exam:->s/p cardiac surgeryShould this be [...] are seen in the spine. Signed: Neel Ham Verified Date/Time: 07/21/2018 13:14:32 Reading Location: [facility] Radiology Reading Room BLOOD GAS, [id number] 13:10:00 Test Item Value Reference Range Interpretation [...] code = 1819) 60.0 % SODIUM NA-STAT [id number] 13:10:00 Test Item Value Reference Range Interpretation Comments SODIUM (BEAKER) (test code = 381) 134 meq/L 135-148 L GLUCOSE-STAT [id number] 13:10:00 Test Item Value Reference Range Interpretation Comments GLUCOSE RANDOM (BEAKER) (test code 165 mg/dL 70-110 H = 652) HGB/HCT (H&H) - STAT [id number] 13:10:00 Test Item Value Reference Range Interpretation Comments HEMOGLOBIN (BEAKER) (test code = 12.3 g/dL 13.0-16.8 L 410) HEMATOCRIT (BEAKER) (test code = 36.0 % 40.0-50.0 L 411) OXYGEN SATURATION, [id number] 13:09:00 Test Item Value Reference Range Interpretation Comments O2 SATURATION (MEASURED) (BEAKER) 70.2 % (test code = 1455) POTASSIUM-STAT [id number] 13:08:00 Test Item Value Reference Range Interpretation Comments POTASSIUM (BEAKER) (test code = 4.3 meq/L 3.6-5.5 379) [id number] 11:23:00 Test Item Value Reference Range Interpretation Comments ACTIVATED CLOTTING TIME 114 sec TEST ED AT [place] [address] ([facility]) (test code = [place] [address]) [address] [id number] 11:23:00 Test Item Value Reference Range Interpretation Comments ACTIVATED CLOTTING TIME 719 sec TEST ED AT [place] [address] ([facility]) (test code = [place] [address]) [address] [id number] 11:23:00 Test Item Value Reference Range Interpretation Comments ACTIVATED CLOTTING TIME 516 sec TEST ED AT [place] [address] (BEAKER) (test code = [place] [address]) [address] [id number] 11:23:00 Test Item Value Reference Range Interpretation Comments ACTIVATED CLOTTING TIME 598 sec TEST ED AT [place] [address] (BEAKER) (test code = [place] [address]) [address] BLOOD GAS, [id number] 11:21:00 Test Item Value Reference Range Interpretation [...] (test code = 1819) 100.0 % GLUCOSE-STAT [id number] 11:21:00 Test Item Value Reference Range Interpretation Comments GLUCOSE RANDOM (BEAKER) (test code 195 mg/dL 70-110 H = 652) HGB/HCT (H&H) - STAT [id number] 11:21:00 Test Item Value Reference Range Interpretation Comments HEMOGLOBIN (BEAKER) (test code = 11.3 g/dL 13.0-16.8 L 410) HEMATOCRIT (BEAKER) (test code = 33.0 % 40.0-50.0 L 411) CALCIUM, [id number] 11:20:00 Test Item Value Reference Range Interpretation Comments CALCIUM IONIZED (BEAKER) (test 1.19 mmol/L 1.12-1.27 code = 698) PH, BLOOD (BEAKER) (test code = 7.31 1810) SODIUM NA-STAT [id number] 11:18:00 Test Item Value Reference Range Interpretation Comments SODIUM (BEAKER) (test code = 381) 135 meq/L 135-148 POTASSIUM-STAT [id number] 11:18:00 Test Item Value Reference Range Interpretation Comments POTASSIUM (BEAKER) (test code = 4.4 meq/L 3.6-5.5 379) [id number] 11:14:00 Test Item Value Reference Range Interpretation Comments FIBRINOGEN LEVEL (BEAKER) (test 230 mg/dl 225-434 code = 658) [id number] 11:14:00 Test Item Value Reference Range Interpretation Comments PARTIAL THROMBOPLASTIN TIME 41.3 seconds 22.5-36.0 H (BEAKER) (test code = 760) PROTHROMBIN [id number] 11:13:00 Test Item Value Reference Range Interpretation Comments PROTIME (BEAKER) (test code = 19.8 seconds 11.7-14.7 H 759) INR (BEAKER) (test code = 370) 1.8 <=5.9 RECOMMENDED COUMADIN/WARFARIN INR THERAPY RANGESSTANDARD DOSE: 2.0 - 3.0 Includes: PROPHYLAXIS for venous thrombosis, systemic embolization; TREATMENT for venous thrombosis and/or pulmonary embolus.HIGH RISK: Target INR is 2.5-3.5 for patients with mechanical heart valves.PLATELET [id number] 10:56:00 Test Item Value Reference Range Interpretation Comments PLATELET COUNT (BEAKER) (test code 84 K/CU MM 150-450 L = 756) BLOOD GAS, [id number] 10:44:00 Test Item Value Reference Range Interpretation [...] code = 1819) 100.0 % SODIUM NA-STAT [id number] 10:44:00 Test Item Value Reference Range Interpretation Comments SODIUM (BEAKER) (test code = 381) 134 meq/L 135-148 L GLUCOSE-STAT [id number] 10:44:00 Test Item Value Reference Range Interpretation Comments GLUCOSE RANDOM (BEAKER) (test code 232 mg/dL 70-110 H = 652) HGB/HCT (H&H) - STAT [id number] 10:44:00 Test Item Value Reference Range Interpretation Comments HEMOGLOBIN (BEAKER) (test code = 8.9 g/dL 13.0-16.8 L 410) HEMATOCRIT (BEAKER) (test code = 26.0 % 40.0-50.0 L 411) CALCIUM, [id number] 10:44:00 Test Item Value Reference Range Interpretation Comments CALCIUM IONIZED (BEAKER) (test 1.05 mmol/L 1.12-1.27 L code = 698) PH, BLOOD (BEAKER) (test code = 7.32 1810) POTASSIUM-STAT [id number] 10:43:00 Test Item Value Reference Range Interpretation Comments POTASSIUM (BEAKER) (test code = 5.3 meq/L 3.6-5.5 379) POTASSIUM-STAT [id number] 10:16:00 Test Item Value Reference Range Interpretation Comments POTASSIUM (BEAKER) (test code = 6.8 meq/L 3.6-5.5 HH 379) HGB/HCT (H&H) - STAT [id number] 10:12:00 Test Item Value Reference Range Interpretation Comments HEMOGLOBIN (BEAKER) (test code = 8.1 g/dL 13.0-16.8 L 410) HEMATOCRIT (BEAKER) (test code = 24.0 % 40.0-50.0 L 411) BLOOD GAS, [id number] 10:11:00 Test Item Value Reference Range Interpretation [...] (test code = 1819) 70.0 % GLUCOSE-STAT [id number] 10:11:00 Test Item Value Reference Range Interpretation Comments GLUCOSE RANDOM (BEAKER) (test code 236 mg/dL 70-110 H = 652) SODIUM NA-STAT [id number] 10:11:00 Test Item Value Reference Range Interpretation Comments SODIUM (BEAKER) (test code = 381) 131 meq/L 135-148 L BLOOD GAS, [id number] 09:44:00 Test Item Value Reference Range Interpretation [...] code = 1819) 70.0 % SODIUM NA-STAT [id number] 09:44:00 Test Item Value Reference Range Interpretation Comments SODIUM (BEAKER) (test code = 381) 133 meq/L 135-148 L POTASSIUM-STAT [id number] 09:44:00 Test Item Value Reference Range Interpretation Comments POTASSIUM (BEAKER) (test code = 5.9 meq/L 3.6-5.5 H 379) GLUCOSE-STAT [id number] 09:44:00 Test Item Value Reference Range Interpretation Comments GLUCOSE RANDOM (BEAKER) (test code 204 mg/dL 70-110 H = 652) HGB/HCT (H&H) - STAT [id number] 09:44:00 Test Item Value Reference Range Interpretation Comments HEMOGLOBIN (BEAKER) (test code = 8.2 g/dL 13.0-16.8 L 410) HEMATOCRIT (BEAKER) (test code = 24.0 % 40.0-50.0 L 411) SODIUM NA-STAT [id number] 09:16:00 Test Item Value Reference Range Interpretation Comments SODIUM (BEAKER) (test code = 381) 132 meq/L 135-148 L POTASSIUM-STAT [id number] 09:16:00 Test Item Value Reference Range Interpretation Comments POTASSIUM (BEAKER) (test code = 5.6 meq/L 3.6-5.5 H 379) HGB/HCT (H&H) - STAT [id number] 09:16:00 Test Item Value Reference Range Interpretation Comments HEMOGLOBIN (BEAKER) (test code = 8.1 g/dL 13.0-16.8 L 410) HEMATOCRIT (BEAKER) (test code = 24.0 % 40.0-50.0 L 411) BLOOD GAS, [id number] 09:15:00 Test Item Value Reference Range Interpretation [...] (test code = 1819) 80.0 % GLUCOSE-STAT [id number] 09:15:00 Test Item Value Reference Range Interpretation Comments GLUCOSE RANDOM (BEAKER) (test code 207 mg/dL 70-110 H = 652) [id number] 08:51:00 Test Item Value Reference Range Interpretation Comments ACTIVATED CLOTTING TIME 577 sec TEST ED AT [place] [address] (BEAKER) (test code = [place] 441) [address] BLOOD GAS, [id number] 08:20:00 Test Item Value Reference Range Interpretation [...] (test code = 1819) 100.0 % GLUCOSE-STAT [id number] 08:20:00 Test Item Value Reference Range Interpretation Comments GLUCOSE RANDOM (BEAKER) (test code 132 mg/dL 70-110 H = 652) SODIUM NA-STAT [id number] 08:19:00 Test Item Value Reference Range Interpretation Comments SODIUM (BEAKER) (test code = 381) 138 meq/L 135-148 POTASSIUM-STAT [id number] 08:19:00 Test Item Value Reference Range Interpretation Comments POTASSIUM (BEAKER) (test code = 3.8 meq/L 3.6-5.5 379) HGB/HCT (H&H) - STAT [id number] 08:19:00 Test Item Value Reference Range Interpretation Comments HEMOGLOBIN (BEAKER) (test code = 14.2 g/dL 13.0-16.8 410) HEMATOCRIT (BEAKER) (test code = 42.0 % 40.0-50.0 411) POCT-GLUCOSE [id number] 06:27:00 Test Item Value Reference Range Interpretation Comments POC-GLUCOSE METER 130 mg/dL 70-110 H TESTED AT [place] [address] (BEAKER) (test code = [place] 1538) [address] CT, CHEST, WITHOUT [id number] 17:18:00preop AVR ACB assess for calcification aortaAddendum BeginsREPORT STATUS:A Addendum: I agree with the previously described non vascular findings. Signed: Kai Hightower MDReport Verified Date/Time: 07/09/2018 17:18:52 Reading Location: [place] [id number] Angio Body Reading RoomAddendum EndsFINAL REPORT CT [...] to the contrast sheet scanned in the [email or web address] system for the amount and route of [...] regarding the non- vascular findings by the Microbiology Lab Technician Radiologist. Signed: Michele Lua MDReport Verified Date/Time: 07/09/2018 14:59:04 Reading Location: [place] [address] Cardiology MRI RAD, CHEST, 2 [id number] 14:54:00Reason for exam:->pre opFINAL REPORT Chest, 2 views. Clinical History: pre op Comparison Study: None Findings: The heart and lungs are within normal limits. The aorta is tortuous. The pleural spaces are clear. No significant bony or soft tissue abnormalities are seen. Impression: No active cardiopulmonary disease. Signed: Mukesh Mcmanus MDReport Verified Date/Time: 07/09/2018 14:54:20 Reading Location:[facility] [id number] Consult Reading Room HEMOGLOBIN [id number] 14:40:00 Test Item Value Reference Range Interpretation Comments HEMOGLOBIN A1C (BEAKER) (test code = 6.4 % 4.3-6.1 H 368) BASIC METABOLIC [id number] 13:47:00 Test Item Value Reference Range Interpretation [...] NOT APPLICABLE FOR DIALYSIS PATIEN TS. PROTHROMBIN TIME/[id number] 13:36:00 Test Item Value Reference Range Interpretation [...] mechanical heart valves.CBC W/PLT COUNT & AUTO [id number] 13:28:00 Test Item Value Reference Range Interpretation [...]
[2022-09-25] MEDS ORDERED: ONDANSETRON 4 MG/2 ML VIAL ONE (18:40)
[2022-09-25] MEDS ORDERED: MORPHINE 2 MG/ML SYR ONE (18:40)
[2022-09-25 18:58] LABS: Absolute Lymphocytes (CBC) 1.7 K/uL (0.7-4.9); Hematocrit 45.4 % (39.6-49.0); Lymphocytes % 14.6 % (15.3-44.8); MCV 91.4 fL (80-100); RBC Red Blood Cell Count 4.97 M/uL (4.33-5.43)
[2022-09-25 19:02] LABS: Protime INR 1.18
[2022-09-25 19:14] LABS: Potassium 3.9 mEq/L (3.5-5.1)
--- NOTE | 2022-09-25 19:43 | RAD REPORT ---
EXAM DESCRIPTION: RAD - Forearm Right - 09/25/2022 7:23 pm CLINICAL HISTORY: Right arm pain FINDINGS: No fracture is seen.
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
[2022-09-25] MEDS ORDERED: LEVETIRACETAM 500 MG/5 ML VIAL IV ONE (20:34)
[2022-09-25] MEDS ORDERED: NA CHLORIDE 0.9% 100 ML ONE (20:34)
[2022-09-25 21:02] VITALS: TEMP 98
[2022-09-25 21:04] VITALS: BP 158/88; O2SAT 96
== END 2022-09-25 20:55 | disposition short-term general hospital (02) ==
LOC: ER 18:25
DX: S06.6X0A Traumatic subarachnoid hemorrhage without loss of consciousness, initial encounter (principal); V49.59XA Passenger injured in collision with other motor vehicles in traffic accident, initial encounter; S51.811A Laceration without foreign body of right forearm, initial encounter; I10 Essential (primary) hypertension; F03.90 Unspecified dementia, unspecified severity, without behavioral disturbance, psychotic disturbance, mood disturbance, and anxiety
CPT/HCPCS: 85025; 80048; 36415; 85610; 85730; 70450; 72125; 71260; 74177; 73090; Q9967; J1953; J2270; J2405

== ENCOUNTER 2022-10-02 09:38 | Inpatient (IN) | payer OTHER ==
--- OUTSIDE RECORDS SUMMARY | 2022-10-02 15:26 | XMS REPORT | Continuity of Care Document ---
:1940 Author Organization [facility] t Address [address] [place] [address] Care Team Providers Name Role Phone Kevin Jones MD Primary Care Physician Kevin Jones Attending Clinician Unavailable CARLOS BHAT Attending Clinician STAN Bustamante Attending Clinician Unavailable TESSY WALKER Attending Clinician Unavailable Jaycob Worley Attending Clinician SHANE BLAS Attending Clinician Unavailable SHINE TALAVERA Attending Clinician Unavailable CARLOS BHAT Admitting Clinician STAN Bustamante Admitting Clinician Unavailable PETAR NANCE Admitting Clinician Unavailable GAGAN VARELA Admitting Clinician Unavailable SHINE TALAVERA Admitting Clinician Unavailable Payers Payer Name Policy Type Policy Number Effective Date Expiration Date Juana willams [employer] MEDICARE PPO [id number] 2022 00:00:00 [employer]ET[employer] MEDICARE O [id number] 2018 POS PPO 00:00:00 Problems Condition Condition [...] nce 2-10 [facility] hematoma) hematoma) 00:00: Medi tenzin 00 Center S/P AVR S/P AVR Disease Active [facility] ([facility]ortic (aortic [facility]14 [facility] valve valve 00:00: Medical replacemen replacemen 00 Ce nter t) t) S/P CABG x S/P CABG x Disease Active [facility] 1 1 [facility]14 [facility] 00:[facility] Medical 00 Center Myoclonus Problem Active 2021-11-18 Me lance (finding) Myoclonus 07-09 21:55:35 l (finding) 00:00: Dix Active 00 07/09/2016 Problem 11/18/2021 [facility] Amnesia Amnesia Problem Active 2021-11-18 Me lance (finding) (finding) 07-26 21:55:35 l Active 00:00: Robin 07/27/2015 00 Problem 11/18/2021 [facility] Diabetes Diabetes Problem Active 2021-11-18 Memoria mellitus mellitus 21:55:35 l type 2 type 2 Dix (disorder) (disorder) Active Problem 11/18/2021 [facility] Hypothyroi Hypothyro Problem Active 2021-11-18 Memoria dism idism 21:55:35 l (disorder) (disorder) He ann Active Problem 11/18/2021 [facility] 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, type, senile senile onset onset (disorder) (disorder) Active Problem 11/18/2021 [facility] Syncope Syncope Problem Active 2021-11-18 Me lance (disorder) (disorder) 21:55:35 l Active Robin Problem 11/18/2021 [facility] DM DM Disease Recurre [facility] (diabetes (diabetes nce Luke [facility] mellitus) mellitus) [facility] 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 nce [facility] Atrial Atrial Disease Recurre [facility] fibrillati fibrillati nce [facility] Hypertensi Hypertensi Disease Active [facility] Aortic Aortic Disease Active [facility] stenosis stenosis [facility] Allergies, Adverse Reactions, Alerts Allergy Allergy Status Severity Reaction(s) Onset Inactive Treating Comm ents Source Name Type Date Date Clinician NO KNOWN Allergy Active [facility] ALLERGIE S No Known No Known Active Memori a [facility] Medicati l on on Robin Allergie Allergie s s Family History Family Member Diagnosis Comments Start Date Stop Date Source Natural father Heart disease [facility] Natural mother Diabetes [facility] Natural mother Heart disease [facility] Social History Social Habit Start Date Stop Date Quantity Comments Source History of tobacco Chews Tobacco [facility] use [facility] History SDAK [facility] Alcohol Comment Medical C enter [facility] Sexual orientation [facility] SDOH [facility] Alcohol Std Drinks Medica l Center History SDOH [facility] Alcohol Binge Medical [facility] Social History 2020-01-14 2020-01-14 [facility] Hari lind 16:52:28 16:52:28 Alcohol intake 2018-07-22 2018-07-[address] 00:[facility]:00 00:00:00 non-drinker of Medical Ce nter alcohol (finding) Tobacco use and 2018-07-09 2018-07-[address] [facility] exposure 00:00:00 00:00:00 tobacco user Medical Cent er History SDOH 2018-07-09 2018-07-[address] [facility] Alcohol Frequency 00:00:00 00:00:00 [facility] Cigarettes smoked 2018-07-09 2018-07-[address] [facility] current (pack per 00:00:00 00:00:00 Medical Center day) - Reported Cigarette 2018-07-09 2018-07-[address] [facility] pack-years 00:00:00 00:00:00 [facility] Sex Assigned At [address] [facility] 00:00:00 00:[facility]:00 [facility] Center Smoking Status Start Date Stop Date Source Tobacco smoking [facility] consumption unknown Ex-smoker 2018-07-09 00:00:00 2018-07-09 [facility] 00:00:00 Center Medications Ordered Filled Start Stop Current Ordering Indication Dosage Frequency Signature Comments Components Source Medication Medication Date Date Medication? Clinician (SIG) Name Name Karen Mosquera 0 Yes 4 mg = 1 Mem oria mg oral 6-09 tab, PO, l tablet 16:19: BID, # 60 Tolu n 00 tab, 3 Refill(s), Pharmacy: [facility] #[id number], 168.91, cm, 08/16/21 11:02:00 CDT, Height, 106.506, kg, 08/16/21 11:02:00 CDT, Weight Karen 4 0 Yes 4 mg = 1 Mem oria mg oral 6-09 tab, PO, l tablet 16:19: BID, # 60 Tolu n 00 tab, 3 Refill(s), Pharmacy: [facility] #[id number], 168.91, cm, 08/16/21 11:02:00 CDT, Height, 106.506, kg, 08/16/21 11:02:00 CDT, Weight Karen Mosquera 0 Yes 4 mg = 1 Mem oria mg oral 6-09 tab, PO, l tablet 16:19: BID, # 60 Tolu n 00 tab, 3 Refill(s), Pharmacy: [facility] #[id number], 168.91, cm, 08/16/21 11:02:00 CDT, Height, 106.506, kg, 08/16/21 11:02:00 CDT, Weight DULoxetine 0 Yes See Memoria 20 mg oral 5-17 Instructio l delayed 13:37: ns, TAKE 1 Herm gilbert release 00 CAPSULE BY capsule MOUTH EVERY DAY, # 90 unknown unit, 1 Refill(s), Pharmacy: [id number], 175.26, cm, 07/06/20 11:00:00 CDT, Height, 103.636, kg, 07/06/20 11:00:00 CDT, Weight DULoxetine 2020-0 Yes See Memoria 20 mg oral 5-17 Instructio l delayed 13:37: ns, TAKE 1 Herm gilbert release 00 CAPSULE BY capsule MOUTH EVERY DAY, # 90 unknown unit, 1 Refill(s), Pharmacy: [facility] STORE [id number], 175.26, cm, 07/06/20 11:00:00 CDT, Height, 103.636, kg, 07/06/20 11:00:00 CDT, Weight DULoxetine 2020-0 Yes See Memoria 20 mg oral 5-17 Instructio l delayed 13:37: ns, TAKE 1 Herm gilbert release 00 CAPSULE BY capsule MOUTH EVERY DAY, # 90 unknown unit, 1 Refill(s), Pharmacy: [facility] STORE [id number], 175.26, cm, 07/06/20 11:00:00 CDT, Height, 103.636, kg, 07/06/20 11:00:00 CDT, Weight Lisinopril 0 Yes 20 mg, PO, M emoria 2-24 Daily, 0 l 21:28: Refill(s) Amiodarone 0 Yes 200 mg, Ulises sasha 2-24 PO, BID, 0 l 21:28: Refill(s) atorvastati 0 Yes 20 mg, PO, Memoria n 2-24 Daily, 0 l 21:28: Refill(s) donepezil 0 Yes 10 mg, PO, Me moria 2-24 Daily, 0 l 21:28: Refill(s) Famotidine Yes 20 mg = 1 Me moria 2-24 tab, PO, l 21:28: BID, # 60 tab, 0 Refill(s) acetaminoph 0 Yes 650 mg = 2 Memoria en 325 mg 2-24 tab, PO, l oral tablet 21:28: Q6H, 0 Herm Refill(s) Lisinopril 0 Yes 20 mg, PO, M emoria 2-24 Daily, 0 l 21:28: Refill(s) Amiodarone 0 Yes 200 mg, Ulises sasha 2-24 PO, BID, 0 l 21:28: Refill(s) Lisinopril 0 Yes 20 mg, PO, M emoria 2-24 Daily, 0 l 21:28: Refill(s) Amiodarone Yes 200 mg, Ulises sasha 2-24 PO, BID, 0 l 21:28: Refill(s) atorvastati 0 Yes 20 mg, PO, Memoria n 2-24 Daily, 0 l 21:28: Refill(s) donepezil 0 Yes 10 mg, PO, Me moria 2-24 Daily, 0 l 21:28: Refill(s) Famotidine Yes 20 mg = 1 Me moria 2-24 tab, PO, l 21:28: BID, # 60 Dix 00 tab, 0 Refill(s) acetaminoph 0 Yes 650 mg = 2 Memoria en 325 mg 2-24 tab, PO, l oral tablet 21:28: Q6H, 0 Herm gilbert 00 Refill(s) atorvastati Yes 20 mg, PO, Memoria n 2-24 Daily, 0 l 21:28: Refill(s) donepezil 0 Yes 10 mg, PO, Me moria 2-24 Daily, 0 l 21:28: Refill(s) Famotidine Yes 20 mg = 1 Me moria 2-24 tab, PO, l 21:28: BID, # 60 Dix 00 tab, 0 Refill(s) acetaminoph 0 Yes [...] tablet 00 by mouth Center daily. DULoxetine 2020-0 Yes 20mg QD Take 1 [facility]CYMBALTA[facility]19 capsule [facility] 20 MG 00:00: (20 mg Medical capsule 00 total) by Center mouth daily. levothyroxi 2020-0 Yes 125ug Take [address] [facility] [facility] ne 2-19 tablet [facility] (SYNTHROID, 00:00: (125 mcg Me dical LEVOTHROID) 00 total) by [address] ter 125 MCG mouth tablet Every morning on an empty stomach. lisinopriL 2020-0 Yes 20mg QD Take 1 [facility] [...] by Center mouth daily with breakfast. acetaminoph 2021-0 Yes 325mg Take [address] [facility] en 2-18 tablet [facility] (TYLENOL) 00:00: (325 mg Medic al 325 MG 00 total) by Center tablet mouth every 6 (six) hours as needed. atorvastati 2020-0 Yes 20mg QD Take [address] [facility] [...] 2 Center tablet (two) times daily. senna-docus 0 Yes 1{tbl} QD Take [...] every 6 (six) hours as needed. atorvastati 2021-0 Yes 20mg QD Take [address] [facility] n (LIPITOR) 2-18 tablet (20 [facility] 20 MG 00:00: mg total) Medical tablet 00 by mouth Center nightly. amiodarone 2021-0 Yes 200mg Q.5D Take [address] [facility] (PACERONE) 2-18 tablet [facility] 200 MG 00:00: (200 mg Medical tablet 00 total) by Center mouth 2 (two) times daily. donepeziL 2021-0 Yes 10mg QD Take [address] [facility] (ARICEPT) 2-18 tablet (10 Luke s 10 MG 00:00: mg total) Medical tablet 00 by mouth Center daily. famotidine 2021-0 Yes 20mg Take 1 [facility] (PEPCID) 20 2-18 tablet (20 Yen kes MG tablet 00:00: mg total) Med ical 00 by mouth Center every 12 (twelve) hours. metoprolol 2021-0 Yes 50mg Q.5D Take 1 [facility] tartrate 2-18 tablet (50 [facility] (LOPRESSOR) 00:00: mg total) M edical 50 MG 00 by mouth 2 Center tablet (two) times daily. atorvastati 2021-0 Yes 20mg QD Take [address] [facility] n (LIPITOR) 2-18 tablet (20 Y[facility] kes 20 MG 00:00: mg total) Medical tablet 00 by mouth Center nightly. amiodarone 2021-0 Yes 200mg Q.5D Take [address] [facility] [facility] (PACERONE) 2-18 tablet [facility] 200 MG 00:00: (200 mg Medical tablet 00 total) by Center mouth 2 (two) times daily. donepeziL 2021-0 Yes 10mg QD Take [address] [facility] [facility] (ARICEPT) 2-18 tablet (10 Luke s 10 MG 00:00: mg total) Medical tablet 00 by mouth Center daily. famotidine 2021-0 Yes 20mg Take 1 [facility] (PEPCID) 20 2-18 tablet (20 Yen kes MG tablet 00:00: mg total) Med ical 00 by mouth Center every 12 (twelve) hours. metoprolol 2021-0 Yes 50mg Q.5D Take 1 [facility] [...] Tablet 00 tab, 3 [Namenda] Refill(s), Pharmacy: [facility] #[id number], 170.18, cm, 10/22/19 9:06:00 CDT, Height, 107.727, kg, 10/22/19 9:06:00 CDT, Weight Memantine 2019-03 Yes 10 mg = 1 Mem oria hydrochlori 1-06 tab, PO, l de 10 MG 16:49: BID, # 180 Her valente Oral Tablet 00 tab, 3 [Namenda] Refill(s), Pharmacy: [facility] ST[facility] #[id number], 170.18, cm, 10/22/19 9:06:00 CDT, Height, 107.727, kg, 10/22/19 9:06:00 CDT, Weight Memantine 2019-03 Yes 10 mg = 1 Mem oria hydrochlori 1-06 tab, PO, l de 10 MG 16:49: BID, # 180 Her valente Oral Tablet 00 tab, 3 [Namenda] Refill(s), Pharmacy: [facility] ST[facility] #[id number], 170.18, cm, 10/22/19 9:06:00 CDT, Height, 107.727, kg, 10/22/19 9:06:00 CDT, Weight DULoxetine 2020-0 Yes See Memoria 20 mg oral 9-14 Instructio l delayed 15:17: ns, TAKE 1 Herm gilbert release 00 CAPSULE BY capsule MOUTH EVERY DAY, # 90 unknown unit, 2 Refill(s), Pharmacy: [facility] STORE #[id number], 170.18, cm, 10/22/19 9:06:00 CDT, Height, 107.727, kg, 10/22/19 9:06:00 CDT, Weight DULoxetine 2020-0 Yes See Memoria 20 mg oral 9-14 Instructio l delayed 15:17: ns, TAKE 1 Herm gilbert release 00 CAPSULE BY capsule MOUTH EVERY DAY, # 90 unknown unit, 2 Refill(s), Pharmacy: [facility] ST[facility] #[id number], 170.18, cm, 10/22/19 9:06:00 CDT, Height, 107.727, kg, 10/22/19 9:06:00 CDT, Weight DULoxetine 2020-0 Yes See Memoria 20 mg oral 9-14 Instructio l delayed 15:17: ns, TAKE 1 Herm gilbert release 00 CAPSULE BY capsule MOUTH EVERY DAY, # 90 unknown unit, 2 Refill(s), Pharmacy: [facility] ST[facility] #[id number], 170.18, cm, 10/22/19 9:06:00 CDT, Height, 107.727, kg, 10/22/19 9:06:00 CDT, Weight Memantine 2020-0 Yes 5 mg = 1 Ulises sasha hydrochlori 8-14 tab, PO, l de 5 MG 14:20: BID, # 60 Tracy nn Oral Tablet 00 tab, 3 [Namenda] Refill(s), Pharmacy: [facility] #[id number], 170.18, cm, 10/22/19 9:06:00 CDT, Height, 107.727, kg, 10/22/19 9:06:00 CDT, Weight Memantine 2020-0 Yes 5 mg = 1 Ulises sasha hydrochlori 8-14 tab, PO, l de 5 MG 14:20: BID, # 60 Tracy nn Oral Tablet 00 tab, 3 [Namenda] Refill(s), Pharmacy: [facility] #[id number], 170.18, cm, 10/22/19 9:06:00 CDT, Height, 107.727, kg, 10/22/19 9:06:00 CDT, Weight Memantine 2020-0 Yes 5 mg = 1 Ulises sasha hydrochlori 8-14 tab, PO, l de 5 MG 14:20: BID, # 60 Tracy nn Oral Tablet 00 tab, 3 [Namenda] Refill(s), Pharmacy: [facility] #[id number], 170.18, cm, 10/22/19 9:06:00 CDT, Height, 107.727, kg, 10/22/19 9:06:00 CDT, Weight DULoxetine 2019-0 Yes = 1 cap, Mem oria 20 mg oral 3-16 PO, Daily, l delayed 16:01: # 90 cap, Tracy nn release 00 1 capsule Refill(s), Pharmacy: [facility] #[id number] DULoxetine 2020-0 Yes = 1 cap, Mem oria 20 mg oral 3-16 PO, Daily, l delayed 16:01: # 90 cap, Tracy nn release 00 1 capsule Refill(s), Pharmacy: [facility] #[id number] DULoxetine 2020-0 Yes = 1 cap, Mem oria 20 mg oral 3-16 PO, Daily, l delayed 16:01: # 90 cap, Tracy nn release 00 1 capsule Refill(s), Pharmacy: [facility] #[id number] rivaroxaban 2019-0 Yes 20 mg = [...] nn release 51 1 capsule Refill(s), [id number] DULoxetine 2018-0 Yes = 1 cap, Mem oria 20 mg oral 7-24 PO, Daily, l delayed 22:16: # 90 cap, Tracy nn release 51 1 capsule Refill(s), Pharmacy: [facility] #[id number] DULoxetine 2018-0 Yes = 1 cap, Mem oria 20 mg oral 7-24 PO, Daily, l delayed 22:16: # 90 cap, Tracy nn release 51 1 capsule Refill(s), Pharmacy: [facility] #[id number] nitroglycer 2018-[address] [facility] [facility] in 4-24 [facility] (NITROSTAT) 00:00: Medica l 0.4 MG SL 00 Center tablet nitroglycer 2018-[address] in 4-24 [facility] (NITROSTAT) 00:00: Medica l 0.4 MG SL 00 Center tablet nitroglycer 2019-[address] in 4-24 [facility] (NITROSTAT) 00:00: Medica l 0.4 MG SL 00 Center tablet donepezil 2018-0 Yes = 1 tab, Ulises sasha 10 mg oral 3-25 PO, l tablet 16:03: Bedtime, # Tracy nn 07 30 tab, Refill(s) 5, Pharmacy: [facility] #[id number] donepezil 2019-0 Yes = 1 tab, Ulises sasha 10 mg oral 3-25 PO, l tablet 16:03: Bedtime, # Tracy nn 07 30 tab, Refill(s) 5, Pharmacy: [facility] #[id number] donepezil 2019-0 Yes = 1 tab, Ulises sasha 10 mg oral 3-25 PO, l tablet 16:03: Bedtime, # Tracy nn 07 30 tab, Refill(s) 5, Pharmacy: [facility] #[id number] DULoxetine 2018-0 Yes = 1 cap, Mem oria 20 mg oral 3-24 PO, Daily, l delayed 21:08: # 30 Dix release 47 unknown capsule unit, Refill(s) 5, Pharmacy: [facility] #[id number] DULoxetine 2018- Yes = 1 cap, Mem oria 20 mg oral 3-24 PO, Daily, l delayed 21:08: # 30 Robin release 47 unknown capsule unit, Refill(s) 5, Pharmacy: [facility] #[id number] DULoxetine 2018-0 Yes = 1 cap, Mem oria 20 mg oral 3-24 PO, Daily, l delayed 21:08: # 30 Robin release 47 unknown capsule unit, Refill(s) 5, Pharmacy: [facility] #[id number] Vital Signs Vital Name Observation Time [...] Systolic (mm Hg) 2021-08-16 15:30:00 Ulises rial Dix Diastolic (mm Hg) 2021-08-16 15:30:00 Mem orial Robin Heart Rate 2021-08-16 15:30:00 [facility] Robin Respitory Rate 2021-08-16 15:30:00 Memori al Robin Height 2021-08-16 15:30:00 168.91 cm [facility] Dix Weight 2021-08-16 15:30:00 [facility] Robin BMI Calculated 2021-08-16 15:30:00 Memori al Dix Systolic (mm Hg) 2021-02-15 16:34:00 Ulises rial Robin Diastolic (mm Hg) 2021-02-15 16:34:00 Mem orial Robin Heart Rate 2021-02-15 16:34:00 [facility] Robin Respitory Rate 2021-02-15 16:34:00 Memori al Dix Height 2021-02-15 16:34:00 170.18 cm [facility] Dix Weight 2021-02-15 16:34:00 [facility] Dix BMI Calculated 2021-02-15 16:34:00 Memori al Dix Systolic (mm Hg) 2020-10-19 15:38:00 Ulises rial Robin Diastolic (mm Hg) 2020-10-19 15:38:00 Mem orial Robin Heart Rate 2020-10-19 15:38:00 [facility] Dix Respitory Rate 2020-10-19 15:38:00 Memori al Robin Height 2020-10-19 15:38:00 167.64 cm [facility] Robin Weight 2020-10-19 15:38:00 [facility] Dix BMI Calculated 2020-10-19 15:38:00 Memori al Robin Diastolic (mm Hg) 2020-08-17 15:49:00 Mem orial Dix Heart Rate 2020-08-17 15:49:00 [facility] Robin Respitory Rate 2020-08-17 15:49:00 Memori al Dix Height 2020-08-17 15:49:00 175.26 cm [facility] Dix Weight 2020-08-17 15:49:00 [facility] Robin BMI Calculated 2020-08-17 15:49:00 Memori al Dix Systolic (mm Hg) 2020-08-17 15:49:00 Ulises rial Dix Systolic (mm Hg) 2020-07-06 16:00:00 Ulises rial Robin Diastolic (mm Hg) 2020-07-06 16:00:00 Mem orial Robin Heart Rate 2020-07-06 16:00:00 [facility] Dix Respitory Rate 2020-07-06 16:00:00 Memori al Robin Height 2020-07-06 16:00:00 175.26 cm [facility] Dix Weight 2020-07-06 16:00:00 [facility] Robin BMI Calculated 2020-07-06 16:00:00 Memori al Robin Systolic (mm Hg) 2020-06-14 14:02:00 Ulises rial Dix Diastolic (mm Hg) 2020-06-14 14:02:00 Mem orial Robin Heart Rate 2020-06-14 14:02:00 [facility] Dix Respitory Rate 2020-06-14 14:02:00 Memori al Robin Height 2020-06-14 14:02:00 175.26 cm [facility] Robin Weight 2020-06-14 14:02:00 [facility] Dix BMI Calculated 2020-06-14 14:02:00 Memori al Dix Systolic (mm Hg) 2020-05-03 20:50:00 Ulises rial Robin Diastolic (mm Hg) 2020-05-03 20:50:00 Mem orial Dix Heart Rate 2020-05-03 20:50:00 [facility] Dix Respitory Rate 2020-05-03 20:50:00 Memori al Robin Height 2020-05-03 20:50:00 175.26 cm [facility] Robin Weight 2020-05-03 20:50:00 [facility] Dix BMI Calculated 2020-05-03 20:50:00 Memori al Dix Height 2020-01-14 16:41:00 167.64 cm [facility] Dix Weight 2020-01-14 16:41:00 [facility] Dix BMI Calculated 2020-01-14 16:41:00 Memori al Dix Systolic (mm Hg) 2020-01-14 16:41:00 Ulises rial Robin Diastolic (mm Hg) 2020-01-14 16:41:00 Mem orial Dix Heart Rate 2020-01-14 16:41:00 [facility] Dix Respitory Rate 2020-01-14 16:41:00 Memori al Robin Systolic (mm Hg) 2019-10-22 14:06:00 Ulises rial Robin Diastolic (mm Hg) 2019-10-22 14:06:00 Mem orial Robin Heart Rate 2019-10-22 14:06:00 [facility] Robin Respitory Rate 2019-10-22 14:06:00 Memori al Dix Height 2019-10-22 14:06:00 170.18 cm [facility] Dix Weight 2019-10-22 14:06:00 [facility] Dix BMI Calculated 2019-10-22 14:06:00 Memori al Dix Systolic (mm Hg) 2018-10-21 14:43:00 Ulises rial Robin Diastolic (mm Hg) 2018-10-21 14:43:00 Mem orial Robin Systolic (mm Hg) 2018-10-21 14:18:00 Ulises rial Robin Diastolic (mm Hg) 2018-10-21 14:18:00 Mem orial Dix Heart Rate 2018-10-21 14:18:00 [facility] Robin Respitory Rate 2018-10-21 14:18:00 Memori al Robin Height 2018-10-21 14:18:00 170.18 cm [facility] Dix Weight 2018-10-21 14:18:00 [facility] Dix BMI Calculated 2018-10-21 14:18:00 Memori al Robin Procedures Procedure Date / Time Performed Performing Clinician [facility] e Aortic valve replacement Memoria l Robin and plication of ascending aorta Plan of Care Planned Activity Planned Date Details Comments Source Future Scheduled 2022-11-08 Influenza Vaccine (#1) [facility] 00:00:00 [code = Influenza Medical Ce nter Vaccine (#1)] Future Scheduled 2022-11-08 Influenza Vaccine (#1) [facility] 00:00:00 [code = Influenza Medical Ce nter Vaccine (#1)] Future Scheduled 2022-08-23 SHINGLES VACCINES (1 Met [facility] Test 08:54:01 of 2) [code = SHINGLES VACCINES (1 of 2)] Future Scheduled 2022-08-23 65+ [facility]01 VACCINE (1 - PCV) [code = 65+ PNEUMOCOCCAL VACCINE (1 - PCV)] Future Scheduled 2022-08-23 INFLUENZA VACCINE [facility] Test 08:54:01 [code = INFLUENZA VACCINE] Future Scheduled 2022-08-23 [facility] [code = COVID-19 VACCINE (#1)] Future Scheduled 2022-08-23 [facility] 08:54[facility]01 [code = COVID-19 VACCINE (#1)] Future Scheduled 2022-08-23 [facility]LES [facility]IN[facility] 08:54:01 of 2) [code = [...] SCREENING] Future Scheduled 2022-02-22 COVID-19 [facility] 11:10:45 [code = COVID-19 VACCINE (#1)] Future Scheduled 2022-02-22 SHINGLES VACCINES (1 Met [facility] Test 11:10:45 of 2) [code = SHINGLES VACCINES (1 of 2)] Future Scheduled 2022-02-22 65+ [facility] Test 11:10:45 VACCINE (1 - PCV) [...] 00:00:00 measurement Medical Center (procedure) [code = 69575832] Future Scheduled 2020-10-[address] [facility] 00:[facility]:00 measurement Medical Center (procedure) [code = 19598376] Future Scheduled 2020-10-[address] [facility] Test 00:00:00 measurement Medical Center (procedure) [code = 16185552] Future Scheduled 2019-03-[address] [...] 00:00:00 examination Medical Center (regime/therapy) [code = 743105309] Future Scheduled 1950 Urine screening for [facility] Test 00:00:00 protein (procedure) Medical Center [code = 731727801] Future Scheduled 1950 DIABETIC EYE EXAM [facility] Test 00:00:00 [code = DIABETIC EYE Medical Center EXAM] Future Scheduled [address] [facility] Test 00:00:00 examination Medical Center (regime/therapy) [code = 882100255] Future Scheduled 1950 Urine screening for [facility] Test 00:00:00 protein (procedure) Medical Center [code = 576567046] Future Scheduled [address]AB[address] EYE EXAM [facility] Test 00:00:00 [code = DIABETIC EYE Medical Center EXAM] Future Scheduled [address] [facility] Test 00:00:00 examination Medical Center (regime/therapy) [code = 119631605] Future Scheduled 1950 Urine screening for [facility] Test 00:00:00 protein (procedure) Medical Center [code = 259797003] Future Scheduled 1946 PNEUMOCOCCAL 65+ YRS [facility] [...] Date/Time Type Type Clinicians Facility Department ID 2022-09-26 Outpatient [facility] [id number] [place] 08:39:04 [id number] Health 2022-08-19 Outpatient Jones, STLMLC STLMLC [id number] Common 10:58:03 Kevin [id number] [facility] 2020-04-21 Inpatient EL PERLITA [facility] PM\\T\\R [id number] [facility] 15:40:00 UVNICKOLASOGLESLEY 2020-04-19 Inpatient ER JAYCEE [facility] General Med [id number] [facility] 18:35:00 ANNISE 2022-09-26 2022-10-02 Inpatient E DENISE, [facility] [address] [facility] 02:03:00 14:00:00 RITVIJody 2021-11-16 2021-11-16 Ambulatory nullFlavo MNA [id number] Memoria 15:30:00 15:30:00 Pre-Reg r Neurology 17 l Abhinav De Oliveiraann 2021-11-16 2021-11-16 Ambulatory nullFlavo MNA [id number] [facility]oria 15:30:00 15:30:00 Pre-Reg r Neurology 17 l Abhinav Robin 2021-11-16 2021-11-16 Outpatient MHIE [place] [id number] Memoria 10:30:00 10:30:00 17 christel Robin 2021-11-16 2021-11-16 [id number] 10:30:00 10:30:00 Jaycob 17 Charlie 2021-08-16 2021-08-17 Outpatient nullFlavo MNA [id number] Memoria 15:30:00 04:59:59 r Neurology 16 l Abhinav Kelly 2021-08-16 2021-08-17 Outpatient nullFlavo MNA [id number] [facility] 15:30:00 04:59:59 r Neurology 16 l Abhinav De Oliveiraann 2021-08-16 2021-08-16 Outpatient [facility]ACK[facility]RAM[facility] [id number] 10:30:00 23:59:59 Jaycob 16 Charlie 2021-08-16 2021-08-16 Outpatient MHIE IE [id number] Memoria 10:30:00 10:30:00 16 christel Kelly 2021-02-15 2021-02-16 Outpatient nullFlavo MNA [id number] [facility] 16:30:00 05:59:59 r Neurology 15 l Abhinav Kelly 2021-02-15 2021-02-16 Outpatient nullFlavo MNA [id number] [facility] 16:30:00 05:59:59 r Neurology 15 l Abhinav Kelly 2021-02-15 2021-02-15 Outpatient JACKI WorleySCHRAMOS [facility] [id number] 10:30:00 23:59:59 Jaycob 15 Charlie 2021-02-15 2021-02-15 Outpatient MHIE IE [id number] Memoria 10:30:00 10:30:00 15 christel Kelly 2020-10-19 2020-10-20 Outpatient nullFlavo MNA [id number] [facility] 15:30:00 04:59:59 r Neurology 14 christel Kelly 2020-10-19 2020-10-20 Outpatient nullFlavo MNA [id number] Memoria 15:30:00 04:59:59 r Neurology 14 christel Kelly 2020-10-19 2020-10-19 [id number] 10:30:00 23:59:59 Jaycob 14 Charlie 2020-10-19 2020-10-19 Outpatient [facility] IE [id number] Memoria 10:30:00 10:30:00 14 christel Kelly 2020-08-17 2020-08-18 Outpatient nullFlavo MNA [id number] Memoria 15:45:00 04:59:59 r Neurology 13 christel Kelly 2020-08-17 2020-08-18 Outpatient nullFlavo MNA [id number] Memoria 15:45:00 04:59:59 r Neurology 13 christel Kelly 2020-08-17 2020-08-17 [id number] 10:45:00 23:59:59 Jaycob 13 Charlie 2020-08-17 2020-08-17 Outpatient MHIE IE [id number] Memoria 10:45:00 10:45:00 13 christel Kelly 2020-07-13 2020-07-13 Ambulatory nullFlavo MNA [id number] Memoria 15:30:00 15:30:00 Pre-Reg r Neurology 08 christel De Oliveiraann 2020-07-13 2020-07-13 Ambulatory nullFlavo MNA [id number] Memoria 15:30:00 15:30:00 Pre-Reg r Neurology 08 christel De Oliveiraann 2020-07-13 2020-07-13 Outpatient MHIE IE [id number] Memoria 10:30:00 10:30:00 08 christel Kelly 2020-07-13 2020-07-13 Outpatient EM[facility]SCHER [facility] [id number] 10:30:00 10:30:00 Jaycob 08 Charlie 2020-07-06 2020-07-07 Outpatient nullFlavo MNA [id number] Memoria 15:30:00 04:59:59 r Neurology 12 christel Kelly 2020-07-06 2020-07-07 Outpatient nullFlavo MNA [id number] Memoria 15:30:00 04:59:59 r Neurology 12 l Abhinav Kelly 2020-07-06 2020-07-06 [facility] [id number] 10:30:00 23:59:59 Jaycob 12 Charlie 2020-07-06 2020-07-06 Outpatient MHIE IE [id number] Memoria 10:30:00 10:30:00 12 christel Kelly 2020-06-15 2020-06-16 Outpatient nullFlavo MNA [id number] Memoria 18:00:00 04:59:59 r Neurology 11 l Abhinav Kelly 2020-06-15 2020-06-16 Outpatient nullFlavo MNA [id number] Memoria 18:00:00 04:59:59 r Neurology 11 l Abhinav Kelly 2020-06-15 2020-06-15 Outpatient [facility]SCH[facility] [id number] 13:00:00 23:59:59 Jaycob 11 Charlie 2020-06-15 2020-06-15 Outpatient MHIE IE [id number] Memoria 13:00:00 13:00:00 11 christel Kelly 2020-06-14 2020-06-15 Outpatient nullFlavo MNA [id number] Memoria 14:00:00 04:59:59 r Neurology 10 christel Kelly 2020-06-14 2020-06-15 Outpatient nullFlavo MNA [id number] Memoria 14:00:00 04:59:59 r Neurology 10 christel Kelly 2020-06-14 2020-06-14 Outpatient EMERY WorleyMISCHER MISCHER [id number] 09:00:00 23:59:59 Jaycob 10 Charlie 2020-06-14 2020-06-14 Outpatient MHIE IE [id number] Memoria 09:00:00 09:00:00 10 christel Robin 2020-05-12 2020-05-12 Outpatient PAUL WALDROP SLE [id number] SLEH 00:00:00 00:00:00 SHANE 2020-05-03 2020-05-04 Outpatient nullFlavo MNA [id number] Memoria 20:30:00 05:59:59 r Neurology 09 l Abhinav De Oliveiraann 2020-05-03 2020-05-04 Outpatient nullFlavo MNA [id number] Memoria 20:30:00 05:59:59 r Neurology 09 l Abhinav Robin 2020-05-03 2020-05-03 [id number] 14:30:00 23:59:59 Jaycob 09 Charlie 2020-05-03 2020-05-03 Outpatient MHIE IE [id number] Memoria 14:30:00 14:30:00 09 christel Robin 2020-01-14 2020-01-15 Outpatient nullFlavo MNA [id number] Memoria 16:30:00 05:59:59 r Neurology 07 l Montezuma Robin 2020-01-14 2020-01-15 Outpatient nullFlavo MNA [id number] Memoria 16:30:00 05:59:59 r Neurology 07 l Montezuma Robin 2020-01-14 2020-01-14 [facility] [id number] 10:30:00 23:59:59 Jaycob 07 Charlie 2020-01-14 2020-01-14 Outpatient MHIE MHIE [id number] Memoria 10:30:00 10:30:00 07 l Robin 2019-10-22 2019-10-23 Outpatient nullFlavo MNA [id number] Memoria 14:00:00 04:59:59 r Neurology 06 l Montezuma Robin 2019-10-22 2019-10-23 Outpatient nullFlavo MNA [id number] Memoria 14:00:00 04:59:59 r Neurology 06 l Montezumashravan Kelly 2019-10-22 2019-10-22 Outpatient Krell, [facility] [id number] 09:00:00 23:59:59 Jaycob Brandy Guerra 2019-10-22 2019-10-22 Ambulatory nullFlavo MNA [id number] Memoria 14:00:00 14:00:00 Pre-Reg r Neurology 05 l Abhinav Robin 2019-10-22 2019-10-22 Ambulatory nullFlavo MNA [id number] Memoria 14:00:00 14:00:00 Pre-Reg r Neurology 05 l [place] Robin 2019-10-22 2019-10-22 Outpatient MHIE IE [id number] Memoria 09:00:00 09:00:00 05 christel Robin 2019-10-22 2019-10-22 Outpatient MHIE MHIE [id number] Memoria 09:00:00 09:00:00 06 christel Robin 2019-10-22 2019-10-22 Outpatient Brunilda [facility] [id number] 09:00:00 09:00:00 Jaycob Juan Carlos Guerra 2018-10-21 2018-10-22 Outpatient nullFlavo MNA [id number] Memoria 14:00:00 04:59:59 r Neurology 04 l Montezuma Dix 2018-10-21 2018-10-22 Outpatient nullFlavo MNA [id number] Memoria 14:00:00 04:59:59 r Neurology 04 christel Monte[place] Robin 2018-10-21 2018-10-21 Outpatient Brunilda [facility] [id number] 09:00:00 23:59:59 Jaycob Jamie Guerra 2018-10-21 2018-10-21 Outpatient MHIE IE [id number] Memoria 09:00:00 09:00:00 04 christel Robin 2018-08-12 2018-08-12 [facility] [id number] SLE[facility] 00:00:00 00:00:00 SHINE 2018-07-29 2018-07-29 Ambulatory nullFlavo MNA [id number] Memoria 14:15:00 14:15:00 Pre-Reg r Neurology 03 l Montezuma Robin 2018-07-29 2018-07-29 Ambulatory nullFlavo MNA [id number] Memoria 14:15:00 14:15:00 Pre-Reg r Neurology 03 l Montez[place] Robin 2018-07-29 2018-07-29 Outpatient MHIE MHIE [id number] Memoria 09:15:00 09:15:00 03 christel Kelly 2018-07-29 2018-07-29 Outpatient [facility] [id number] 09:15:00 09:15:00 Jaycob Lona Guerra 2018-02-04 2018-02-06 Phone nullFlavo MNA [id number] Memoria 17:54:00 05:59:59 Message r Neurology 01 christel Kelly 2018-02-04 2018-02-06 Phone nullFlavo MNA [id number] Memoria 17:54:00 05:59:59 Message r Neurology 01 christel Kelly 2018-02-04 2018-02-05 [facility] [id number] 11:54:00 23:59:59 2017-10-29 2017-10-29 Outpatient MHIE MHIE [id number] Memoria 09:15:00 09:15:00 02 christel Kelly 2017-10-29 2017-10-29 Outpatient MHIE MHIE [id number] Memoria 09:15:00 09:15:00 02 christel Kelly 2017-08-21 2017-08-21 Outpatient MHIE MHIE [id number] Memoria 09:00:00 09:00:00 01 christel Robin 2017-08-21 2017-08-21 Outpatient MHIE MHIE [id number] Memoria 09:00:00 09:00:00 01 christel Robin 2017-04-23 2017-04-23 Outpatient MHIE MHIE [id number] Memoria 10:00:00 10:00:00 00 christel Robin 2017-04-23 2017-04-23 Outpatient MHIE MHIE [id number] Memoria 10:00:00 10:00:00 00 christel Robin Results Test Description Test Time Test Comments Results Result Comments Source POCT-GLUCOSE METER 2020-04-28 06:37:00 Test Item Value Reference Range Interpretation Comme nts POC-GLUCOSE METER (BEAKER) 112 mg/dL 70-110 H : TESTED AT [address] (test code = 1538) [place] [address]: Clinical Research Director/Techni walt ID = [id number] for Antonina Rose POCT-GLUCOSE [id number] 17:09:00 Test Item Value Reference Range Interpretation Comments POC-GLUCOSE METER 126 mg/dL 70-110 H : TESTED A T [facility] (BEAKER) (test code CAMBRIDG E BLDG A, = 1538) [place] [address] 0: Clinical Research Director/Techni walt ID = [id number] for Bisi Andujar POCT-GLUCOSE [id number] 06:49:00 Test Item Value Reference Range Interpretation Comments POC-GLUCOSE METER 92 mg/dL 70-110 : TESTED A T [facility] (BEAKER) (test code = CAMBRI DGE BLDG A, 1538) [place] [address] 0: Clinical Research Director/Techni walt ID = [id number] for ETHAN HOFF SARS-COV2/RT-PCR ([facility])2020-04-27 05:38:00 Test Item Value Reference Range Interpretation Comments SARS-COV2/RT-PCR (test code Negative Not Detected, Negative, = 8648917) See external report for linked test SARS-COV-2 PERFORMING LAB [facility] (test code = 1647271) Negative results do not preclude SARS-CoV-2 infection [...] of the Act.Fact Sheet for Healthcare Pro viders:https://www.cepheid.com/Documents/Xpert%20Xpress%20SARS%20CoV-2/Fact%20Sh eets/302-3802%07HTZJ-OUQ-9%20HEALTHCARE%20PROVIDERS%20FACT%20SHEET.pdfFact Sheet for Healthcare Patients:https://www.[employer]/Documents/Xpert%20Xpress%20SARS%20CoV-2/Fact%20Sheets/302-3801%20SARS-COV -2%20PATIENT%20FACT%20SHEET.pdfPerforming Laboratory:[facility], [place] [address]KTTM-UXAFKKV [id number] 21:25:00 Test Item Value Reference Range Interpretation Comments POC-GLUCOSE METER 104 mg/dL 70-110 : TESTED A T [facility] (BEAKER) (test code CAMBRIDG E BLDG A, = 1538) [place] [address] 0: Clinical Research Director/Techni walt ID = [id number] for CODY ALEJANDRA ETHAN POCT-GLUCOSE [id number] 17:03:00 Test Item Value Reference Range Interpretation Comments POC-GLUCOSE METER 114 mg/dL 70-110 H : TESTED A T [facility] (BEAKER) (test code CAMBRIDG E BLDG A, = 1538) [place] [address] 0: Clinical Research Director/Techni walt ID = [id number] for JATIN S, SHANNON POCT-GLUCOSE [id number] 11:05:00 Test Item Value Reference Range Interpretation Comments POC-GLUCOSE METER 132 mg/dL 70-110 H : TESTED A T [facility] (BEAKER) (test code CAMBRIDG E BLDG A, = 1538) [place] [address] 0: Clinical Research Director/Techni walt ID = [id number] for JATIN S, SHANNON POCT-GLUCOSE [id number] 06:37:00 Test Item Value Reference Range Interpretation Comments POC-GLUCOSE METER 119 mg/dL 70-110 H : TESTED A T [facility] (BEAKER) (test code CAMBRIDG E BLDG A, = 1538) [place] [address] 0: Clinical Research Director/Techni walt ID = [id number] for CAMF IELD, CRYSTAL POCT-GLUCOSE [id number] 20:54:00 Test Item Value Reference Range Interpretation Comments POC-GLUCOSE METER 142 mg/dL 70-110 H : TESTED A T [facility] (BEAKER) (test code CAMBRIDG E BLDG A, = 1538) [place] [address] 0: Clinical Research Director/Techni walt ID = [id number] for CAMF IELD, CRYSTAL POCT-GLUCOSE [id number] 17:18:00 Test Item Value Reference Range Interpretation Comments POC-GLUCOSE METER 120 mg/dL 70-110 H : TESTED A T [facility] (BEAKER) (test code CAMBRIDG E BLDG A, = 1538) [place] [address] 0: Clinical Research Director/Techni walt ID = [id number] for CEDRIC JAIME, NEO ELBA POCT-GLUCOSE [id number] 11:59:00 Test Item Value Reference Range Interpretation Comments POC-GLUCOSE METER 106 mg/dL 70-110 : TESTED A T [facility] (BEAKER) (test code CAMBRIDG E BLDG A, = 1538) [place] [address] 0: Clinical Research Director/Techni walt ID = [id number] for CEDRIC JAIME, NEO ELBA POCT-GLUCOSE [id number] 06:29:00 Test Item Value Reference Range Interpretation Comments POC-GLUCOSE METER 113 mg/dL 70-110 H : TESTED A T [facility] (BEAKER) (test code CAMBRIDG E BLDG A, = 1538) [place] [address] 0: Clinical Research Director/Techni walt ID = [id number] for CAMF IELD, CRYSTAL POCT-GLUCOSE [id number] 21:06:00 Test Item Value Reference Range Interpretation Comments POC-GLUCOSE METER 139 mg/dL 70-110 H : TESTED A T [facility] (BEAKER) (test code CAMBRIDG E BLDG A, = 1538) [place] [address] 0: Clinical Research Director/Techni walt ID = [id number] for CAMF IELD, CRYSTAL POCT-GLUCOSE [id number] 16:51:00 Test Item Value Reference Range Interpretation Comments POC-GLUCOSE METER 128 mg/dL 70-110 H : TESTED A T [facility] (BEAKER) (test code CAMBRIDG E BLDG A, = 1538) [place] [address] 0: Clinical Research Director/Techni walt ID = [id number] for KANDIS LUO POCT-GLUCOSE [id number] 11:58:00 Test Item Value Reference Range Interpretation Comments POC-GLUCOSE METER 133 mg/dL 70-110 H : TESTED A T [facility] (BEAKER) (test code CAMBRIDG E BLDG A, = 1538) [place] [address] 0: Clinical Research Director/Techni walt ID = [id number] for FADUMO CAMPBELL POCT-GLUCOSE [id number] 06:33:00 Test Item Value Reference Range Interpretation Comments POC-GLUCOSE METER 102 mg/dL 70-110 : TESTED A T [facility] (BEAKER) (test code CAMBRIDG E BLDG A, = 1538) [place] [address] 0: Clinical Research Director/Techni walt ID = [id number] for ZENOBIA BE BASIC METABOLIC [id number] 04:59:00 Test Item Value Reference Range Interpretation [...] NOT APPLICABLE FOR DIALYSIS PATIEN TS. POCT-GLUCOSE [id number] 20:55:00 Test Item Value Reference Range Interpretation Comments POC-GLUCOSE METER 134 mg/dL 70-110 H : TESTED A T [facility] (BEAKER) (test code CAMBRIDG E BLDG A, = 1538) [place] [address] 0: Clinical Research Director/Techni walt ID = [id number] for CAMF IELD, CRYSTAL POCT-GLUCOSE [id number] 16:44:00 Test Item Value Reference Range Interpretation Comments POC-GLUCOSE METER 137 mg/dL 70-110 H : TESTED A T [facility] (BEAKER) (test code CAMBRIDG E BLDG A, = 1538) [place] [address] 0: Clinical Research Director/Techni walt ID = [id number] for ORIJOLA-SABADO, THORNE POCT-GLUCOSE [id number] 11:49:00 Test Item Value Reference Range Interpretation Comments POC-GLUCOSE METER 102 mg/dL 70-110 : TESTED A T [facility] (BEAKER) (test code CAMBRIDG E BLDG A, = 1538) [place] [address] 0: Clinical Research Director/Techni walt ID = [id number] for ORIJOLA-SABADO, THORNE POCT-GLUCOSE [id number] 06:35:00 Test Item Value Reference Range Interpretation Comments POC-GLUCOSE METER 140 mg/dL 70-110 H : TESTED A T [facility] (BEAKER) (test code CAMBRIDG E BLDG A, = 1538) [place] [address] 0: Clinical Research Director/Techni walt ID = [id number] for CAMF IELD, CRYSTAL POCT-GLUCOSE [id number] 21:02:00 Test Item Value Reference Range Interpretation Comments POC-GLUCOSE METER 132 mg/dL 70-110 H : TESTED A T [facility] (BEAKER) (test code CAMBRIDG E BLDG A, = 1538) [place] [address] 0: Clinical Research Director/Techni walt ID = [id number] for CAMF IELD, CRYSTAL POCT-GLUCOSE [id number] 16:57:00 Test Item Value Reference Range Interpretation Comments POC-GLUCOSE METER 119 mg/dL 70-110 H : TESTED A T [facility] (BEAKER) (test code CAMBRIDG E BLDG A, = 1538) [place] [address] 0: Clinical Research Director/Techni walt ID = [id number] for ONWU KA, AMAUCHE POCT-GLUCOSE [id number] 12:14:00 Test Item Value Reference Range Interpretation Comments POC-GLUCOSE METER 98 mg/dL 70-110 : TESTED A T [facility] 7200 (BEAKER) (test code = LISARI DGE BLDG A, 1538) [place] [address] 0: Clinical Research Director/Techni walt ID = [id number] for MARTHA VINES VITAMIN B12 AND [id number] 07:28:00 Test Item Value Reference Range Interpretation Comments VITAMIN B12 368 pg/mL 211-911 (BEAKER) (test code = 774) FOLATE (BEAKER) 10.78 ng/mL See_Comment [Automated message] (test code = 362) The system which generated this result transmitted ref erence range: >=5.40. The reference range was not used to interpr et this result as normal/abnormal . COMPREHENSIVE METABOLIC [id number] 06:55:00 Test Item Value Reference Range Interpretation [...] S NOT APPLICABLE FOR DIALYSIS PATIEN TS. [id number] 06:55:00 Test Item Value Reference Range Interpretation Comments PHOSPHORUS (BEAKER) 4.0 mg/dL 2.3-4.7 Specimen slightly (test code = 604) hemolyzed POCT-GLUCOSE [id number] 06:42:00 Test Item Value Reference Range Interpretation Comments POC-GLUCOSE METER 124 mg/dL 70-110 H : TESTED A T [facility] (BEAKER) (test code CAMBRIDG E BLDG A, = 1538) [place] [address] 0: Clinical Research Director/Techni walt ID = [id number] for CORINA DOMITILAWallace (V), CELSO CBC W/PLT COUNT & AUTO [id number] 06:37:00 Test Item Value Reference Range Interpretation [...] PERCENT (BEAKER) (test code = 2801) POCT-GLUCOSE [id number] 21:15:00 Test Item Value Reference Range Interpretation Comments POC-GLUCOSE METER 149 mg/dL 70-110 H : TESTED A T [facility] (BEAKER) (test code CAMBRIDG E BLDG A, = 1538) [place] [address] 0: Clinical Research Director/Techni walt ID = [id number] for CORINA ANDO (V), CELSO POCT-GLUCOSE [id number] 17:17:00 Test Item Value Reference Range Interpretation Comments POC-GLUCOSE METER 143 mg/dL 70-110 H : TESTED A T [facility] (BEAKER) (test code CAMBRIDG E BLDG A, = 1538) [place] [address] 0: Clinical Research Director/Techni walt ID = [id number] for XAVI FERNANDO, LIBORIO COMPREHENSIVE METABOLIC [id number] 07:44:00 Test Item Value Reference Range Interpretation [...] S NOT APPLICABLE FOR DIALYSIS PATIEN TS. Clinical Research Director ID - PIJATIN [id number] 07:44:00 Test Item Value Reference Range Interpretation Comments MAGNESIUM (BEAKER) (test code = 2.1 mg/dL 1.6-2.6 627) Clinical Research Director ID - HEATHER [id number] 07:44:00 Test Item Value Reference Range Interpretation Comments PHOSPHORUS (BEAKER) (test code = 3.2 mg/dL 2.3-4.7 604) Clinical Research Director ID - HEATHER LCBC W/PLT COUNT & AUTO [id number] 07:00:00 Test Item Value Reference Range Interpretation [...] PERCENT (BEAKER) (test code = 2801) SARS-COV2/RT-PCR ([facility])2020-04-21 00:16:00 Test Item Value Reference Range Interpretation Comments SARS-COV2/RT-PCR (test Negative Not Detected, Negative, code = 2599560) See external report for linked test SARS-COV-2 PERFORMING LAB [facility] [place] (test code = 3356660) Negative result for this test determines that [...] of the Act.Fact Sheet for Healthcare Prov iders:https://www.[employer]/sites/default/files/product/documents/Fact_Sheet_HC _Wwygkwcmg_Wqez_PSGE-SgQ-6.pdfFact Sheet for Healthcare Patients:https://www.[employer]/sites/default/files/product/docume nts/Wkkk_Djgtp_Exxgtugo_Ljcq_ZFVV-XuP-6.pdfPerforming Laboratory:[facility], [place] [address]PI, BRAIN, WITHOUT [id number] 18:05:00Unlisted Reason for Exam - Click Yes and Enter Reason Below->No[facility] : 1940 Sex: MFINAL [...] fissure,without significant mass effect. Signed: Joy Machado MDRepmissouri southern healthcare Verified Date/Time: 04/20/2020 18:05:36 CT BRAIN WITHOUT IV CONTRAST - [id number] 08:18:00Unlisted Reason for Exam - Click Yes and Enter Reason Below->No [facility] : 1940 Sex: MFINAL [...] MDReport Verified Date/Time: 04/20/2020 08:18:01 Reading Location: [address] Neuro Reading Room GLOBIN [id number] 07:47:00 Test Item Value Reference Range Interpretation Comments HEMOGLOBIN A1C (BEAKER) (test code = 6.7 % 4.3-6.1 H 368) [id number] 05:43:00 Test Item Value Reference Range Interpretation Comments PARTIAL THROMBOPLASTIN TIME 37.3 seconds 22.5-36.0 H (BEAKER) (test code = 760) PROTHROMBIN TIME/[id number] 05:42:00 Test Item Value Reference Range Interpretation Comments PROTIME (BEAKER) 15.9 seconds 11.9-14.2 H (test code = 759) INR (BEAKER) (test 1.31 See_Comment [Automat ed message] code = 370) The system [employer] generated this result transmitted ref erence range: [...] patients wiht mechanical heart valves.TSH/FREE T4 IF [id number] 05:39:00 Test Item Value Reference Range Interpretation Comments THYROID STIMULATING HORMONE 0.510 uIU/mL 0.350-4.940 (BEAKER) (test code = 772) Clinical Research Director ID - ADELAIDE MCOMPREHENSIVE METABOLIC [id number] 05:23:00 Test Item Value Reference Range Interpretation [...] S NOT APPLICABLE FOR DIALYSIS PATIEN TS. Clinical Research Director ID - [id number] 05:23:00 Test Item Value Reference Range Interpretation Comments MAGNESIUM (BEAKER) (test code = 1.9 mg/dL 1.6-2.6 627) Clinical Research Director ID - [id number] 05:23:00 Test Item Value Reference Range Interpretation Comments PHOSPHORUS (BEAKER) (test code = 2.9 mg/dL 2.3-4.7 604) Clinical Research Director ID - SMLIPID [id number] 05:23:00 Test Item Value Reference Range Interpretation [...] Borderline 130-159 High 160-189 Very High >=190 Clinical Research Director ID - SMCBC W/PLT COUNT & AUTO [id number] 05:04:00 Test Item Value Reference Range Interpretation [...] PERCENT (BEAKER) (test code = 2801) POCT-GLUCOSE [id number] 16:36:00 Test Item Value Reference Range Interpretation Comments POC-GLUCOSE METER 108 mg/dL 70-110 TESTED AT [facility] 6720 (BEAKER) (test code = [place] 1538) [address] BASIC METABOLIC [id number] 08:25:00 Test Item Value Reference Range Interpretation [...] PATIEN TS. CBC W/PLT COUNT & AUTO [id number] 05:31:00 Test Item Value Reference Range Interpretation [...] PERCENT (BEAKER) (test code = 2801) POCT-GLUCOSE [id number] 23:32:00 Test Item Value Reference Range Interpretation Comments POC-GLUCOSE METER 95 mg/dL 70-110 TESTED AT [facility] 6720 ([facility]) (test code = [facility] [address] 1538) POCT-GLUCOSE [id number] 17:21:00 Test Item Value Reference Range Interpretation Comments POC-GLUCOSE METER 104 mg/dL 70-110 TESTED AT [facility] 6720 ([facility]) (test code = [facility] 1538) [address] [id number] 10:35:00 Test Item Value Reference Range Interpretation Comments MAGNESIUM (BEAKER) (test code = 1.9 mg/dL 1.6-2.6 627) POCT-GLUCOSE [id number] 09:09:00 Test Item Value Reference Range Interpretation Comments POC-GLUCOSE METER 122 mg/dL 70-110 H TESTED AT [facility] 6720 (BEAKER) (test code = TABATHA Lozano [facility] 1538) [address] BASIC METABOLIC [id number] 02:49:00 Test Item Value Reference Range Interpretation [...] APPLICABLE FOR DIALYSIS PATIEN TS. LACTIC ACID, [id number] 02:46:00 Test Item Value Reference Range Interpretation Comments LACTATE BLOOD VENOUS (2) (BEAKER) 2.0 mmol/L 0.5-2.2 (test code = 2872) LACTIC ACID, [id number] 22:31:00 Test Item Value Reference Range Interpretation Comments LACTATE BLOOD VENOUS (2) (BEAKER) 2.1 mmol/L 0.5-2.2 (test code = 2872) POCT-GLUCOSE [id number] 21:55:00 Test Item Value Reference Range Interpretation Comments POC-GLUCOSE METER 168 mg/dL 70-110 H TESTED AT [facility] 6720 (BEAKER) (test code = TABATHA Lozano [place] 1538) [address] [id number] 20:15:00 Test Item Value Reference Range Interpretation Comments MAGNESIUM (BEAKER) (test code = 1.9 mg/dL 1.6-2.6 627) BASIC METABOLIC [id number] 20:15:00 Test Item Value Reference Range Interpretation [...] PATIEN TS. CBC W/PLT COUNT & AUTO [id number] 20:14:00 Test Item Value Reference Range Interpretation [...] (BEAKER) (test code = 2801) POCT-LACTIC ACID, [id number] 19:45:00 Test Item Value Reference Range Interpretation Comments POC-LACTIC ACID, 2.4 mmol/L 0.9-1.7 H TESTED AT [facility] 6720 VENOUS (BEAKER) (test [place] code = 2805) [address] POCT-GLUCOSE [id number] 19:25:00 Test Item Value Reference Range Interpretation Comments POC-GLUCOSE METER 204 mg/dL 70-110 H TESTED AT [place] [address] ([facility]) (test code = [place] 1538) [address] POCT-GLUCOSE [id number] 17:24:00 Test Item Value Reference Range Interpretation Comments POC-GLUCOSE METER 149 mg/dL 70-110 H TESTED AT [place] [address] ([facility]) (test code = [place] 1538) [address] RAD, CHEST, 1 VIEW, NON [id number] 12:01:00Reason for exam:- >dyspneaShould this be performed at the bedside?->YesFINAL REPORT CLINICAL HISTORY: dyspnea TECHNIQUE: 1 view of the chest. COMPARISO N: 07/25/2018 IMPRESSION: Left lung base pleural-parenchymal opacity is unchanged. The right lung remains relatively well-aerated. The cardiomediastinal silhouette is magnified by technique with sternotomy wires. Signed: Alan Chi MDReport Verified Date/Time: 07/27/2018 12:01:19 Reading Location: [facility] Radiology Reading Room TISSUE [id number] 11:59:00Surgical Pathology Report Case: [id number] Authorizing Provider: Shine Talavera, Collected: 0 07/21/2018 1022 MD Ordering Location: [facility] Received: 07/21/2018 1159 PERIOPERATIVE SERVICES Pathologist: Davion Mallory MD Specimen: Aortic Valve HEART, AORTIC VALVE, VALVULECTOMY:LEAFLETS WITH SEVERE NODULAR CALCIFIC ATHEROSCLEROTIC THICKENING Signing Pathologist Direct Phone Line: [phone]; [phone] disease disease, aortic valve stenosis, etiology of [...] representatively in a single cassette following decalcification. [id number]/[id number] 11:30:00 Test Item Value Reference Range Interpretation Comments MAGNESIUM (BEAKER) (test code = 1.7 mg/dL 1.6-2.6 627) POCT-GLUCOSE [id number] 09:47:00 Test Item Value Reference Range Interpretation Comments POC-GLUCOSE METER 114 mg/dL 70-110 H TESTED AT [place] [address] ([facility]) (test code = [facility] 1538) [address] BASIC METABOLIC [id number] 05:37:00 Test Item Value Reference Range Interpretation [...] NOT APPLICABLE FOR DIALYSIS PATIEN TS. POCT-GLUCOSE [id number] 21:01:00 Test Item Value Reference Range Interpretation Comments POC-GLUCOSE METER 136 mg/dL 70-110 H TESTED AT [place] [id number] (BEAKER) (test code = [facility] 1538) [address] POCT-GLUCOSE [id number] 15:47:00 Test Item Value Reference Range Interpretation Comments POC-GLUCOSE METER 121 mg/dL 70-110 H TESTED AT [place] [id number] (BEAKER) (test code = [facility] 1538) [address] POCT-GLUCOSE [id number] 09:34:00 Test Item Value Reference Range Interpretation Comments POC-GLUCOSE METER 95 mg/dL 70-110 TESTED AT [place] [id number] (BEAKER) (test code = [facility] [address] 1538) BASIC METABOLIC [id number] 07:28:00 Test Item Value Reference Range Interpretation [...] NOT APPLICABLE FOR DIALYSIS PATIEN TS. POCT-GLUCOSE [id number] 22:08:00 Test Item Value Reference Range Interpretation Comments POC-GLUCOSE METER 149 mg/dL 70-110 H TESTED AT [place] [address] ([facility]) (test code = [facility] 1538) [address] POCT-GLUCOSE [id number] 15:46:00 Test Item Value Reference Range Interpretation Comments POC-GLUCOSE METER 95 mg/dL 70-110 TESTED AT [place] [address] ([facility]) (test code = [facility] [address] 1538) B-TYPE NATRIURETIC FACTOR (BNP)2018-07-25 11:55:00 Test Item Value Reference Range Interpretation Comments B-TYPE NATRIURETIC PEPTIDE ([facility]) 301 pg/mL 0-100 H (test code = 700) RAD, CHEST, 1 VIEW, NON [id number] 11:29:00Reason for exam:->shortness of breathShould this be performed at the bedside?->YesFINAL REPORT Comparison: 07/24/2018 TECHNIQUE: Single view of the chest FINDINGS: Small left pleural effusion with adjacent airspace disease. Mild vascular congestion suspected elsewhere. Cardiac silhouette is enlarged. Postsurgical changes in the mediastinum noted. Signed: Aung Timmonse[place] Verified Date/Time: 07/25/2018 11:29:19 Reading Location: [place] [id number] Transitional Read ing Room [id number] 09:47:00 Test Item Value Reference Range Interpretation Comments MAGNESIUM (BEAKER) (test code = 1.9 mg/dL 1.6-2.6 627) BASIC METABOLIC [id number] 09:47:00 Test Item Value Reference Range Interpretation [...] NOT APPLICABLE FOR DIALYSIS PATIEN TS. POCT-GLUCOSE [id number] 08:41:00 Test Item Value Reference Range Interpretation Comments POC-GLUCOSE METER 115 mg/dL 70-110 H TESTED AT [facility] 6720 (BEAKER) (test code = [facility] [place] 1538) [address] CBC W/PLT COUNT & AUTO [id number] 06:04:00 Test Item Value Reference Range Interpretation [...] PERCENT (BEAKER) (test code = 2801) POCT-GLUCOSE [id number] 21:45:00 Test Item Value Reference Range Interpretation Comments POC-GLUCOSE METER 120 mg/dL 70-110 H TESTED AT [facility] 6720 (BEAKER) (test code = TABATHA [place] 1538) [address] POCT-GLUCOSE [id number] 18:01:00 Test Item Value Reference Range Interpretation Comments POC-GLUCOSE METER 150 mg/dL 70-110 H TESTED AT [facility] 6720 ([facility]) (test code = TABATHA Lozano [place] 1538) [address] POCT-GLUCOSE [id number] 13:03:00 Test Item Value Reference Range Interpretation Comments POC-GLUCOSE METER 152 mg/dL 70-110 H TESTED AT [facility] 6720 ([facility]) (test code = TABATHA Lozano [facility] 1538) [address] RAD, CHEST, 1 VIEW, NON [id number] 09:45:00Reason for exam:->pleural effShould this be performed at the bedside?->YesFINAL REPORT TECHNIQUE: Frontal chest radiograph dated 07/24/2018. CLINICAL HISTORY: Pleural effusion COMPARISON STUDY: Chest radiograph dated 07/22/2018 IMPRESSION:The extreme lateral left lung base is not included in the sxboc-wz-odur. A small left pleural effusion is suspected. Stable left lung base atelectasis. No pneumothorax. Cardiomediastinal silhouette is normal in size. No pulmonary edema. Midline sternotomy wires are intact and well aligned. Signed: Neel Hameport Verified Date/Time: 07/24/2018 09:45:08 Reading Location: [facility] Radiology Reading Room POCT-GLUCOSE [id number] 08:16:00 Test Item Value Reference Range Interpretation Comments POC-GLUCOSE METER 149 mg/dL 70-110 H TESTED AT [facility] 67 ([facility]) (test code = TABATHA Lozano [facility] 1538) [address] [id number] 07:48:00 Test Item Value Reference Range Interpretation Comments PHOSPHORUS (BEAKER) (test code = 1.5 mg/dL 2.3-4.7 LL 604) [id number] 07:43:00 Test Item Value Reference Range Interpretation Comments MAGNESIUM (BEAKER) (test code = 1.8 mg/dL 1.6-2.6 627) BASIC METABOLIC [id number] 07:43:00 Test Item Value Reference Range Interpretation [...] PATIEN TS. CBC W/PLT COUNT & AUTO [id number] 06:04:00 Test Item Value Reference Range Interpretation [...] PERCENT (BEAKER) (test code = 2801) POCT-GLUCOSE [id number] 21:28:00 Test Item Value Reference Range Interpretation Comments POC-GLUCOSE METER 130 mg/dL 70-110 H TESTED AT [facility] 6720 (BEAKER) (test code = [facility] [place] 1538) [address] URINALYSIS W/ REFLEX URINE [id number] 18:20:00 Test Item Value Reference Range Interpretation [...] Moderate SOURCE(BEAKER) (test code = 2795) POCT-GLUCOSE [id number] 14:57:00 Test Item Value Reference Range Interpretation Comments POC-GLUCOSE METER 135 mg/dL 70-110 H TESTED AT [facility] 6720 (BEAKER) (test code = TAB[facility] [place] 1538) [address] B-TYPE NATRIURETIC FACTOR (BNP)2018-07-23 06:49:00 Test Item Value Reference Range Interpretation Comments B-TYPE NATRIURETIC PEPTIDE (BEAKER) 446 pg/mL 0-100 H (test code = 700) [id number] 06:09:00 Test Item Value Reference Range Interpretation Comments PHOSPHORUS (BEAKER) (test code = 2.4 mg/dL 2.3-4.7 604) [id number] 06:09:00 Test Item Value Reference Range Interpretation Comments MAGNESIUM (BEAKER) (test code = 2.0 mg/dL 1.6-2.6 627) BASIC METABOLIC [id number] 06:09:00 Test Item Value Reference Range Interpretation [...] NOT APPLICABLE FOR DIALYSIS PATIEN TS. CALCIUM, [id number] 05:57:00 Test Item Value Reference Range Interpretation Comments CALCIUM IONIZED (BEAKER) (test 1.03 mmol/L 1.12-1.27 L code = 698) PH, BLOOD (BEAKER) (test code = 7.44 1810) Check serum Ionized Calcium level after 4 hours after IV Calcium replacement.CBC W/PLT COUNT & AUTO [id number] 05:46:00 Test Item Value Reference Range Interpretation [...] = 2801) RAD, CHEST, 1 VIEW, NON [id number] 00:00:00Reason for exam:->sobShould this be performed at [...] MDReport Verified Date/Time: 07/23/2018 00:00:17 Reading Location: [address] Consult Reading Room POCT-GLUCOSE [id number] 21:49:00 Test Item Value Reference Range Interpretation Comments POC-GLUCOSE METER 133 mg/dL 70-110 H TESTED AT [facility] 6720 ([facility]) (test code = TABATHA Lozano [place] 1538) [address] POCT-GLUCOSE [id number] 16:55:00 Test Item Value Reference Range Interpretation Comments POC-GLUCOSE METER 156 mg/dL 70-110 H TESTED AT [facility] 6720 ([facility]) (test code = TAB[facility] Lozano [place] 1538) [address] POCT-GLUCOSE [id number] 11:33:00 Test Item Value Reference Range Interpretation Comments POC-GLUCOSE METER 164 mg/dL 70-110 H TESTED AT [facility] 6720 (BEAKER) (test code = [facility] [place] 1538) [address] [id number] 11:29:00 Test Item Value Reference Range Interpretation Comments PARTIAL THROMBOPLASTIN TIME 47.4 seconds 22.5-36.0 H (BEAKER) (test code = 760) PLATELET [id number] 11:14:00 Test Item Value Reference Range Interpretation Comments PLATELET COUNT (BEAKER) (test 105 K/CU MM 150-450 L code = 756) BASIC METABOLIC [id number] 05:57:00 Test Item Value Reference Range Interpretation [...] S NOT APPLICABLE FOR DIALYSIS PATIEN TS. [id number] 05:56:00 Test Item Value Reference Range Interpretation Comments PHOSPHORUS (BEAKER) (test code = 3.3 mg/dL 2.3-4.7 604) [id number] 05:56:00 Test Item Value Reference Range Interpretation Comments MAGNESIUM (BEAKER) (test code = 2.0 mg/dL 1.6-2.6 627) CBC W/PLT COUNT & AUTO [id number] 05:34:00 Test Item Value Reference Range Interpretation [...] (BEAKER) (test code = 2801) OXYGEN SATURATION, [id number] 05:24:00 Test Item Value Reference Range Interpretation Comments O2 SATURATION (MEASURED) (BEAKER) 62.1 % (test code = 1455) BLOOD GAS, [id number] 05:20:00 Test Item Value Reference Range Interpretation [...] 40.0 % RAD, CHEST, 1 VIEW, NON [id number] 04:49:00Reason for exam:->s/p cardiac surgeryShould this be performed at the bedside?->YesFINAL REPORT CLINICAL INDICATION: Postop Comparison: 07/21/2018 The cardiomediastinal contours are stable. The lung volumes are stable after extubation. Central pulmonary vascular prominence and bilateral parenchymal and left pleural opacities are similar to previous. There is no pneumothorax. Remaining support lines are stable. Signed: Kylah Ortiz MDReport Verified Date/Time: 07/22/2018 04:49:49 Reading Location: [address] Reading Room POCT-GLUCOSE METER 2018-07-22 03:10:00 Test Item Value Reference Range Interpretation Comments POC-GLUCOSE METER 131 mg/dL 70-110 H TESTED AT [facility] 6720 (BEAKER) (test code = [facility] [place] 1538) [address] LACTIC ACID, [id number] 22:27:00 Test Item Value Reference Range Interpretation Comments LACTATE BLOOD ARTERIAL (2) 2.0 mmol/L 0.5-2.2 (BEAKER) (test code = 2874) [id number] 22:25:00 Test Item Value Reference Range Interpretation Comments MAGNESIUM (BEAKER) (test code = 2.2 mg/dL 1.6-2.6 627) SODIUM NA-STAT [id number] 22:07:00 Test Item Value Reference Range Interpretation Comments SODIUM (BEAKER) (test code = 381) 138 meq/L 135-148 POTASSIUM-STAT [id number] 22:07:00 Test Item Value Reference Range Interpretation Comments POTASSIUM (BEAKER) (test code = 4.1 meq/L 3.6-5.5 379) OXYGEN SATURATION, [id number] 22:07:00 Test Item Value Reference Range Interpretation Comments O2 SATURATION (MEASURED) (BEAKER) 59.7 % (test code = 1455) BLOOD GAS, [id number] 22:07:00 Test Item Value Reference Range Interpretation [...] (test code = 1819) 40.0 % GLUCOSE-STAT [id number] 22:07:00 Test Item Value Reference Range Interpretation Comments GLUCOSE RANDOM (BEAKER) (test code 113 mg/dL 70-110 H = 652) HGB/HCT (H&H) - STAT [id number] 22:07:00 Test Item Value Reference Range Interpretation Comments HEMOGLOBIN (BEAKER) (test code = 10.9 g/dL 13.0-16.8 L 410) HEMATOCRIT (BEAKER) (test code = 32.0 % 40.0-50.0 L 411) LACTIC ACID, [id number] 20:27:00 Test Item Value Reference Range Interpretation Comments LACTATE BLOOD ARTERIAL (2) 2.1 mmol/L 0.5-2.2 (BEAKER) (test code = 2874) [id number] 20:26:00 Test Item Value Reference Range Interpretation Comments POTASSIUM (BEAKER) (test code = 4.3 meq/L 3.5-5.1 379) [id number] 20:26:00 Test Item Value Reference Range Interpretation Comments GLUCOSE RANDOM (BEAKER) (test code 148 mg/dL 70-105 H = 652) BLOOD GAS, [id number] 20:14:00 Test Item Value Reference Range Interpretation [...] (test code = 1819) 60.0 % POCT-GLUCOSE [id number] 18:45:00 Test Item Value Reference Range Interpretation Comments POC-GLUCOSE METER 136 mg/dL 70-110 H TESTED AT [facility] 6720 (BEAKER) (test code = [facility] [place] 1538) [address] BLOOD GAS, [id number] 17:22:00 Test Item Value Reference Range Interpretation [...] (test code = 1819) 60.0 % POCT-GLUCOSE [id number] 16:40:00 Test Item Value Reference Range Interpretation Comments POC-GLUCOSE METER 159 mg/dL 70-110 H TESTED AT [facility] 6720 (BEAKER) (test code = [facility] [place] 1538) [address] [id number] 13:26:00 Test Item Value Reference Range Interpretation Comments MAGNESIUM (BEAKER) 2.4 mg/dL 1.6-2.6 Specimen slightly (test code = 627) hemolyzed [id number] 13:26:00 Test Item Value Reference Range Interpretation Comments PHOSPHORUS (BEAKER) 2.4 mg/dL 2.3-4.7 Specimen slightly (test code = 604) hemolyzed BASIC METABOLIC [id number] 13:26:00 Test Item Value Reference Range Interpretation [...] APPLICABLE FOR DIALYSIS PATIEN TS. LACTIC ACID, [id number] 13:24:00 Test Item Value Reference Range Interpretation Comments LACTATE BLOOD 2.7 mmol/L 0.5-2.2 H Specimen sligh tly ARTERIAL (2) (BEAKER) hemoly zed (test code = 2874) [id number] 13:19:00 Test Item Value Reference Range Interpretation Comments PARTIAL THROMBOPLASTIN TIME 38.9 seconds 22.5-36.0 H (BEAKER) (test code = 760) PROTHROMBIN [id number] 13:18:00 Test Item Value Reference Range Interpretation [...] mechanical heart valves.CBC W/PLT COUNT & AUTO [id number] 13:15:00 Test Item Value Reference Range Interpretation [...] = 2801) RAD, CHEST, 1 VIEW, NON [id number] 13:14:00Reason for exam:->s/p cardiac surgeryShould this be [...] [place] Verified Date/Time: 07/21/2018 13:14:32 Reading Location: [facility] Radiology Reading Room BLOOD GAS, [id number] 13:10:00 Test Item Value Reference Range Interpretation [...] code = 1819) 60.0 % SODIUM NA-STAT [id number] 13:10:00 Test Item Value Reference Range Interpretation Comments SODIUM (BEAKER) (test code = 381) 134 meq/L 135-148 L GLUCOSE-STAT [id number] 13:10:00 Test Item Value Reference Range Interpretation Comments GLUCOSE RANDOM (BEAKER) (test code 165 mg/dL 70-110 H = 652) HGB/HCT (H&H) - STAT [id number] 13:10:00 Test Item Value Reference Range Interpretation Comments HEMOGLOBIN (BEAKER) (test code = 12.3 g/dL 13.0-16.8 L 410) HEMATOCRIT (BEAKER) (test code = 36.0 % 40.0-50.0 L 411) OXYGEN SATURATION, [id number] 13:09:00 Test Item Value Reference Range Interpretation Comments O2 SATURATION (MEASURED) (BEAKER) 70.2 % (test code = 1455) POTASSIUM-STAT [id number] 13:08:00 Test Item Value Reference Range Interpretation Comments POTASSIUM (BEAKER) (test code = 4.3 meq/L 3.6-5.5 379) [id number] 11:23:00 Test Item Value Reference Range Interpretation Comments ACTIVATED CLOTTING TIME 114 sec TEST ED AT [facility] 6720 (BEAKER) (test code = TAB[place] [place] 441) [address] [id number] 11:23:00 Test Item Value Reference Range Interpretation Comments ACTIVATED CLOTTING TIME 719 sec TEST ED AT [place] [address] ([facility]) (test code = TABATHA [place]oz[place] 441) [address] [id number] 11:23:00 Test Item Value Reference Range Interpretation Comments ACTIVATED CLOTTING TIME 516 sec TEST ED AT [place] [address] ([facility]) (test code = TABATHA Lozano [facility] 441) [address] [id number] 11:23:00 Test Item Value Reference Range Interpretation Comments ACTIVATED CLOTTING TIME 598 sec TEST ED AT [place] [address] ([facility]) (test code = TABATHA Loz[place] [address]) [address] BLOOD GAS, [id number] 11:21:00 Test Item Value Reference Range Interpretation [...] (test code = 1819) 100.0 % GLUCOSE-STAT [id number] 11:21:00 Test Item Value Reference Range Interpretation Comments GLUCOSE RANDOM (BEAKER) (test code 195 mg/dL 70-110 H = 652) HGB/HCT (H&H) - STAT [id number] 11:21:00 Test Item Value Reference Range Interpretation Comments HEMOGLOBIN (BEAKER) (test code = 11.3 g/dL 13.0-16.8 L 410) HEMATOCRIT (BEAKER) (test code = 33.0 % 40.0-50.0 L 411) CALCIUM, [id number] 11:20:00 Test Item Value Reference Range Interpretation Comments CALCIUM IONIZED (BEAKER) (test 1.19 mmol/L 1.12-1.27 code = 698) PH, BLOOD (BEAKER) (test code = 7.31 1810) SODIUM NA-STAT [id number] 11:18:00 Test Item Value Reference Range Interpretation Comments SODIUM (BEAKER) (test code = 381) 135 meq/L 135-148 POTASSIUM-STAT [id number] 11:18:00 Test Item Value Reference Range Interpretation Comments POTASSIUM (BEAKER) (test code = 4.4 meq/L 3.6-5.5 379) [id number] 11:14:00 Test Item Value Reference Range Interpretation Comments FIBRINOGEN LEVEL (BEAKER) (test 230 mg/dl 225-434 code = 658) [id number] 11:14:00 Test Item Value Reference Range Interpretation Comments PARTIAL THROMBOPLASTIN TIME 41.3 seconds 22.5-36.0 H (BEAKER) (test code = 760) PROTHROMBIN [id number] 11:13:00 Test Item Value Reference Range Interpretation Comments PROTIME (BEAKER) (test code = 19.8 seconds 11.7-14.7 H 759) INR (BEAKER) (test code = 370) 1.8 <=5.9 RECOMMENDED COUMADIN/WARFARIN INR THERAPY RANGESSTANDARD DOSE: 2.0 - 3.0 Includes: PROPHYLAXIS for venous thrombosis, systemic embolization; TREATMENT for venous thrombosis and/or pulmonary embolus.HIGH RISK: Target INR is 2.5-3.5 for patients with mechanical heart valves.PLATELET [id number] 10:56:00 Test Item Value Reference Range Interpretation Comments PLATELET COUNT (BEAKER) (test code 84 K/CU MM 150-450 L = 756) BLOOD GAS, [id number] 10:44:00 Test Item Value Reference Range Interpretation [...] code = 1819) 100.0 % SODIUM NA-STAT [id number] 10:44:00 Test Item Value Reference Range Interpretation Comments SODIUM (BEAKER) (test code = 381) 134 meq/L 135-148 L GLUCOSE-STAT [id number] 10:44:00 Test Item Value Reference Range Interpretation Comments GLUCOSE RANDOM (BEAKER) (test code 232 mg/dL 70-110 H = 652) HGB/HCT (H&H) - STAT [id number] 10:44:00 Test Item Value Reference Range Interpretation Comments HEMOGLOBIN (BEAKER) (test code = 8.9 g/dL 13.0-16.8 L 410) HEMATOCRIT (BEAKER) (test code = 26.0 % 40.0-50.0 L 411) CALCIUM, [id number] 10:44:00 Test Item Value Reference Range Interpretation Comments CALCIUM IONIZED (BEAKER) (test 1.05 mmol/L 1.12-1.27 L code = 698) PH, BLOOD (BEAKER) (test code = 7.32 1810) POTASSIUM-STAT [id number] 10:43:00 Test Item Value Reference Range Interpretation Comments POTASSIUM (BEAKER) (test code = 5.3 meq/L 3.6-5.5 379) POTASSIUM-STAT [id number] 10:16:00 Test Item Value Reference Range Interpretation Comments POTASSIUM (BEAKER) (test code = 6.8 meq/L 3.6-5.5 HH 379) HGB/HCT (H&H) - STAT [id number] 10:12:00 Test Item Value Reference Range Interpretation Comments HEMOGLOBIN (BEAKER) (test code = 8.1 g/dL 13.0-16.8 L 410) HEMATOCRIT (BEAKER) (test code = 24.0 % 40.0-50.0 L 411) BLOOD GAS, [id number] 10:11:00 Test Item Value Reference Range Interpretation [...] (test code = 1819) 70.0 % GLUCOSE-STAT [id number] 10:11:00 Test Item Value Reference Range Interpretation Comments GLUCOSE RANDOM (BEAKER) (test code 236 mg/dL 70-110 H = 652) SODIUM NA-STAT [id number] 10:11:00 Test Item Value Reference Range Interpretation Comments SODIUM (BEAKER) (test code = 381) 131 meq/L 135-148 L BLOOD GAS, [id number] 09:44:00 Test Item Value Reference Range Interpretation [...] code = 1819) 70.0 % SODIUM NA-STAT [id number] 09:44:00 Test Item Value Reference Range Interpretation Comments SODIUM (BEAKER) (test code = 381) 133 meq/L 135-148 L POTASSIUM-STAT [id number] 09:44:00 Test Item Value Reference Range Interpretation Comments POTASSIUM (BEAKER) (test code = 5.9 meq/L 3.6-5.5 H 379) GLUCOSE-STAT [id number] 09:44:00 Test Item Value Reference Range Interpretation Comments GLUCOSE RANDOM (BEAKER) (test code 204 mg/dL 70-110 H = 652) HGB/HCT (H&H) - STAT [id number] 09:44:00 Test Item Value Reference Range Interpretation Comments HEMOGLOBIN (BEAKER) (test code = 8.2 g/dL 13.0-16.8 L 410) HEMATOCRIT (BEAKER) (test code = 24.0 % 40.0-50.0 L 411) SODIUM NA-STAT [id number] 09:16:00 Test Item Value Reference Range Interpretation Comments SODIUM (BEAKER) (test code = 381) 132 meq/L 135-148 L POTASSIUM-STAT [id number] 09:16:00 Test Item Value Reference Range Interpretation Comments POTASSIUM (BEAKER) (test code = 5.6 meq/L 3.6-5.5 H 379) HGB/HCT (H&H) - STAT [id number] 09:16:00 Test Item Value Reference Range Interpretation Comments HEMOGLOBIN (BEAKER) (test code = 8.1 g/dL 13.0-16.8 L 410) HEMATOCRIT (BEAKER) (test code = 24.0 % 40.0-50.0 L 411) BLOOD GAS, [id number] 09:15:00 Test Item Value Reference Range Interpretation [...] (test code = 1819) 80.0 % GLUCOSE-STAT [id number] 09:15:00 Test Item Value Reference Range Interpretation Comments GLUCOSE RANDOM (BEAKER) (test code 207 mg/dL 70-110 H = 652) [id number] 08:51:00 Test Item Value Reference Range Interpretation Comments ACTIVATED CLOTTING TIME 577 sec TEST ED AT [place] [address] (BEAKER) (test code = TABATHA Lozano [place] [address]) [address] BLOOD GAS, [id number] 08:20:00 Test Item Value Reference Range Interpretation [...] (test code = 1819) 100.0 % GLUCOSE-STAT [id number] 08:20:00 Test Item Value Reference Range Interpretation Comments GLUCOSE RANDOM (BEAKER) (test code 132 mg/dL 70-110 H = 652) SODIUM NA-STAT [id number] 08:19:00 Test Item Value Reference Range Interpretation Comments SODIUM (BEAKER) (test code = 381) 138 meq/L 135-148 POTASSIUM-STAT [id number] 08:19:00 Test Item Value Reference Range Interpretation Comments POTASSIUM (BEAKER) (test code = 3.8 meq/L 3.6-5.5 379) HGB/HCT (H&H) - STAT [id number] 08:19:00 Test Item Value Reference Range Interpretation Comments HEMOGLOBIN (BEAKER) (test code = 14.2 g/dL 13.0-16.8 410) HEMATOCRIT (BEAKER) (test code = 42.0 % 40.0-50.0 411) POCT-GLUCOSE [id number] 06:27:00 Test Item Value Reference Range Interpretation Comments POC-GLUCOSE METER 130 mg/dL 70-110 H TESTED AT [place] [address] (BEAKER) (test code = TABATHA Lozano [facility] 1538) [address] CT, CHEST, WITHOUT [id number] 17:18:00preop AVR ACB assess for calcification aortaAddendum BeginsREPORT STATUS:A Addendum: I agree with the previously described non vascular findings. Signed: Kai Hightower MDReport Verified Date/Time: 07/09/2018 17:18:52 Reading Location: [place] [address] Angio Body Reading RoomAddendum EndsFINAL REPORT CT [...] to the contrast sheet scanned in the [employer] system for the amount and route of [...] Other findings as described above. 4. An addendumwill be dictated regarding the non- vascular findings by the Fire Control Technician B Radiologist. Signed: Michele Lua MDReport Verified Date/Time: 07/09/2018 14:59:04 Reading Location: [place] [address] Cardiology MRI RAD, CHEST, 2 [id number] 14:54:00Reason for exam:->pre opFINAL REPORT Chest, 2 views. Clinical History: pre op Comparison Study: None Findings: The heart and lungs are within normal limits. The aorta is tortuous. The pleural spaces are clear. No significant bony or soft tissue abnormalities are seen. Impression: No active cardiopulmonary disease. Signed: Mukesh Mcmanuseport Verified Date/Time: 07/09/2018 14:54:20 Reading Location:[address] Consult Reading Room HEMOGLOBIN [id number] 14:40:00 Test Item Value Reference Range Interpretation Comments HEMOGLOBIN A1C (BEAKER) (test code = 6.4 % 4.3-6.1 H 368) BASIC METABOLIC [id number] 13:47:00 Test Item Value Reference Range Interpretation [...] NOT APPLICABLE FOR DIALYSIS PATIEN TS. PROTHROMBIN TIME/[id number] 13:36:00 Test Item Value Reference Range Interpretation [...] mechanical heart valves.CBC W/PLT COUNT & AUTO [id number] 13:28:00 Test Item Value Reference Range Interpretation [...]
[2022-10-02] MEDS ORDERED: GLUCAGON 1 MG/VIAL IM PRN (16:13)
[2022-10-02] MEDS ORDERED: D10W 250 ML BAG IV PRN (16:13)
[2022-10-02] MEDS: INSULIN -REGULAR HUMAN 50 UNIT/0.5 ML ML SQ SCH ×2 (16:30→20:49)
[2022-10-02] MEDS ORDERED: ALBUTEROL 2.5 MG/3 ML NEB SOL NEB PRN (17:19)
[2022-10-02] MEDS ORDERED: ACETAMINOPHEN 325 MG TABLET PO PRN (17:19)
[2022-10-02] MEDS ORDERED: IPRATROPIUM BROM 0.5MG/2.5ML NEB PRN (17:20)
[2022-10-02] MEDS ORDERED: POLYETHYL GLY 3350 17 GM/DOSE PO PRN (17:22)
[2022-10-02 18:33] VITALS: BMI 35.7
[2022-10-02 18:37] LABS: Urine Bacteria None Seen /HPF (<20); Urine Crystals Unidentified Few /HPF (None Seen); Urine RBC <5 /HPF (None Seen)
[2022-10-02 18:38] LABS: Urine Bilirubin Negative (Negative); Urine Clarity Clear (Clear); Urine Color Yellow (Yellow); Urine Glucose Negative (Negative)
[2022-10-02 18:39] LABS: Urine Blood Negative (Negative); Urine Protein Negative (Negative); Urine Urobilinogen Normal (Normal)
[2022-10-02] MEDS ORDERED: DOCUSATE NA/SENNA CONC 1 TAB PO PRN (19:28)
[2022-10-02] MEDS ORDERED: POLYETHYL GLY 3350 17 GM/DOSE PO SCH (20:00)
[2022-10-02] MEDS: VALACYCLOVIR 500 MG TAB PO SCH (20:44)
[2022-10-02] MEDS: levETIRAcetam 500 MG TAB PO SCH (20:45)
[2022-10-02] MEDS: DULOXETINE 20 MG CAP PO SCH (20:45)
[2022-10-02] MEDS: GABAPENTIN 300 MG CAP PO SCH (20:45)
[2022-10-02] MEDS: METOPROLOL TAR 50 MG TAB PO SCH (20:45)
[2022-10-02] MEDS: ROSUVASTATIN 10 MG TAB PO SCH (20:48)
[2022-10-02] MEDS ORDERED: ROSUVASTATIN 10 MG TAB PO SCH (21:00)
[2022-10-02] MEDS ORDERED: NA CHLORIDE 0.9% 250 ML ONE (22:08)
[2022-10-03] MEDS: PIPER TAZO 3.375 GM in NA CHLORIDE 0.9% 100 ML IV SCH ×2 (00:10→08:14)
[2022-10-03 04:14] LABS: Absolute Lymphocytes (CBC) 1.5 K/uL (0.7-4.9); Hematocrit 40.4 % (39.6-49.0); Lymphocytes % 20.2 % (15.3-44.8); MCV 91.7 fL (80-100); MPV 8.5 fL (7.6-11.3); Platelets 243 thou/uL (152-406)
[2022-10-03 04:36] LABS: Albumin 2.8 g/dL (3.4-5.0); Magnesium 2.1 mg/dL (1.6-2.4); Potassium 4.3 mEq/L (3.5-5.1); Prealbumin 13.5 mg/dL (20-40)
[2022-10-03] MEDS ORDERED: POLYETHYL GLY 3350 17 GM/DOSE PO PRN (05:03)
[2022-10-03] MEDS: LEVOTHYROXINE SOD 0.125 MG TAB PO SCH (05:36)
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
[2022-10-03] MEDS: INSULIN -REGULAR HUMAN 50 UNIT/0.5 ML ML SQ SCH ×4 (07:30→21:00)
[2022-10-03] MEDS ORDERED: NYSTATIN PWDR 100000 UNIT/GM TOP SCH (08:00)
[2022-10-03] MEDS ORDERED: LIDOCAINE 4% PATCH TOP SCH (08:00)
[2022-10-03] MEDS: levETIRAcetam 500 MG TAB PO SCH ×2 (08:15→21:06)
[2022-10-03] MEDS: GABAPENTIN 300 MG CAP PO SCH ×3 (08:15→21:06)
[2022-10-03] MEDS: DULOXETINE 20 MG CAP PO SCH ×2 (08:15→21:06)
[2022-10-03] MEDS: METOPROLOL TAR 50 MG TAB PO SCH ×2 (08:15→21:06)
[2022-10-03] MEDS: VALACYCLOVIR 500 MG TAB PO SCH ×3 (08:15→21:06)
[2022-10-03] MEDS: METFORMIN HCL 500 MG TAB PO SCH ×2 (08:16→17:36)
[2022-10-03] MEDS: AMLODIPINE 5 MG TAB PO SCH (11:36)
[2022-10-03] MEDS: NYSTATIN PWDR 100000 UNIT/GM TOP SCH ×2 (11:39→21:07)
--- NOTE | 2022-10-03 15:50 | RAD REPORT ---
EXAM DESCRIPTION: RAD - Chest Single View - 10/03/2022 3:41 pm CLINICAL HISTORY: cough COMPARISON: Chest Pa And Lat (2 Views) dated 05/02/2022; Chest Single View dated 08/31/2021; Chest Sin gle View dated 04/19/2020; Chest Single View dated 05/25/2018; Head C Spine Cap W Con dated 09/25/2022 FINDINGS: Lines: None. Lungs: Airspace disease present within the medial right lung base . Pleural: No significant pleural effusions or pneumothorax. Calcified nodule in the left mid lung. Cardiac: Similar size and configuration. Mediastinum: Within normal limits. Bones: No acute fractures. Sternotomy Other: None IMPRESSION: Airspace disease in the right lung base concerning for pneumonia or pneumonitis, possibl y secondary to aspiration.
[2022-10-03] MEDS: ROSUVASTATIN 10 MG TAB PO SCH (21:06)
[2022-10-03] MEDS: GLUCERNA SHAKE 237 ML CAN PO SCH (21:07)
--- NOTE | 2022-10-03 22:33 | PN ---
Date of Progress Note: 10/03/2022 Time Of Service: 1 p.m. Subjective: Mr. Poole is doing speech therapy. He actually had an episode of coughing suggestive of possibility of ongoing aspiration related to stroke and chest x-ray was ordered. The chest x-ray came back with airspace decrease in the right lung base concerning for pneumonia or pneumonitis, pos sibly secondary to aspiration. It is noted that the patient is already being treated for aspiration pneumonia with antibiotics. Review of Systems: Some mild shortness of breath with exertion in addition to right-sided incoordination and weakness fo llowing his subarachnoid hemorrhage with intraventricular extension. Otherwise, mild myalgias, arthr algias. No rash, headache, weight change. No other issues on review of systems. Physical Examination: Vital Signs: Blood pressure 154/80, pulse 70, respiratory rate of 16, temperature 97.3, oxygen satur ation 96% on room air. General: Mr. Poole is resting comfortably in bed. He is in no acute distress. HEENT: He appears normocephalic, atraumatic. Sclerae anicteric. Oropharynx pink, moist. Neck: Supple. Chest: Clear. Extremities: Show no significant changes such as cyanosis or clubbing. Laboratory Studies: Complete blood count with differential is essentially unremarkable. His electro lyte panel is normal. Glucose range 124 to 144. Prealbumin 13.5, albumin 2.8. Urinalysis is unrema rkable except trace budding yeasts. Medications: Tylenol Extra Strength 500 mg every 6 hours, albuterol nebulizer 2.5 mg every 6 hours f or wheezing, Norvasc 5 mg daily, Cymbalta 20 mg twice daily, Glucerna shake 237 mL twice daily, gabap entin 300 mg 3 times daily, Atrovent nebulizer for shortness of breath, Keppra 500 mg twice daily, Sy nthroid 0.125 mg daily, lidocaine patch 2 patches apply to area of pain daily, metformin 500 mg twice daily, Lopressor 50 mg twice daily, Mycostatin apply powder topically to affected area daily. He di d continue the Zosyn and tomorrow. Crestor 10 mg at bedtime, Senokot-S 2 at bedtime, Valtrex 1000 mg 3 times daily. Current Functional Status: Today, he did ambulate 100 feet and 50 feet with a rolling walker with ryan patel assistance. He ambulated another 5 steps with a rolling walker, but required maximum assistanc e. He was able to reach 50 feet with minimum assistance. With his occupational therapy, toilet burnham sfer done with contact guard to minimum assistance. Required contact guard for pivot transfers. Min imum assistance control is sitting down. Bathing: Moderate assist with maximum assistance required for toileting. Moderate assist for lower body dressing. Grooming at supervision level. He is worki ng with speech pathology with long-term goals of going from supine to sit without bed rails independe ntly and stand pivot transfers. He did that independently and ambulate 300 feet independently with a rolling walker and did ascend and descend 5 stairs independently. Progress Towards Rehabilitation Goals: Mr. Poole is making good progress so far towards his goals as outlined above. Assessment: Mr. Poole is an 82-year-old patient in the rehabilitation unit with a traumatic subdu ral hemorrhage with interventricular extension. He has comorbid anemia, constipation, decreased mobi lity, diabetes mellitus type 2, dyslipidemia, essential hypertension, hypothyroidism, tachycardia, pn eumonia. Plan: 1.Continue with physical, occupational, speech therapy. 2.Continue Zosyn for pneumonia. 3.Crestor for dyslipidemia. 4.Melatonin for diabetes. 5.Senokot for constipation. 6.Valtrex for herpes simplex outbreak. 7.Glucophage for diabetes mellitus. 8.Cymbalta for depression. 9.Norvasc for hypertension. 10.Tylenol for pain. Comorbidities That Continue To Impact Rehabilitation: Mr. Poole has a chest x-ray consistent with pneumonia, which he was already being treated for. Sputum cultures will be done to determine if the sensitivity was appropriate and if they are still back care to be treated. He has diabetes with dotty rly good control. Blood pressures, again, very good control and he is also being evaluated for possi bility of depression, which may occur after his traumatic hemorrhage and also the potential for seizu res is being carefully monitored. LB/MODL Voice ID: [id number] Report ID: [id number]
[2022-10-03] MEDS ORDERED: NA CHLORIDE 0.9% 250 ML ONE (23:28)
[2022-10-04] MEDS: PIPER TAZO 3.375 GM in NA CHLORIDE 0.9% 100 ML IV SCH ×3 (00:22→17:05)
[2022-10-04] MEDS: LEVOTHYROXINE SOD 0.125 MG TAB PO SCH (07:20)
[2022-10-04] MEDS: INSULIN -REGULAR HUMAN 50 UNIT/0.5 ML ML SQ SCH ×4 (07:26→20:31)
[2022-10-04] MEDS: LIDOCAINE 4% PATCH TOP SCH (08:34)
[2022-10-04] MEDS: GABAPENTIN 300 MG CAP PO SCH ×3 (08:36→19:57)
[2022-10-04] MEDS: NYSTATIN PWDR 100000 UNIT/GM TOP SCH ×2 (08:36→19:56)
[2022-10-04] MEDS: METOPROLOL TAR 50 MG TAB PO SCH ×2 (08:37→19:55)
[2022-10-04] MEDS: VALACYCLOVIR 500 MG TAB PO SCH ×3 (08:37→19:55)
[2022-10-04] MEDS: METFORMIN HCL 500 MG TAB PO SCH ×2 (08:38→17:06)
[2022-10-04] MEDS: levETIRAcetam 500 MG TAB PO SCH ×2 (08:38→19:55)
[2022-10-04] MEDS: DULOXETINE 20 MG CAP PO SCH ×2 (08:38→19:56)
[2022-10-04] MEDS: AMLODIPINE 5 MG TAB PO SCH (10:21)
[2022-10-04] MEDS: GLUCERNA SHAKE 237 ML CAN PO SCH ×2 (12:13→19:57)
--- NOTE | 2022-10-04 13:32 | P.RH.PN ---
Estimated Length of Stay: 13 Expected Discharge Date: 10/12/22 Discharge Disposition Plan: Home Family Support: Yes Communications Station Manager Goal: Mobility, Transfers, Self Care Vital Signs: Last Vital Signs Temp 98.4 F 10/04/22 08:00 Pulse 86 10/04/22 10:21 Resp 20 10/04/22 08:00 BP 140/70 10/04/22 10:21 Pulse Ox 93 10/04/22 08:00 Laboratory: Laboratory Last Values WBC 7.20 thou/uL (4.3-10.9) 10/03/22 03:59 RBC 4.40 M/uL (4.33-5.43) 10/03/22 03:59 Hgb 13.6 g/dL (13.6-17.9) 10/03/22 03:59 Hct 40.4 % (39.6-49.0) 10/03/22 03:59 MCV 91.7 fL (80-100) 10/03/22 03:59 MCH 30.9 pg (27.0-35.0) 10/03/22 03:59 MCHC 33.7 g/dL (32.0-36.0) 10/03/22 03:59 RDW 14.7 % (12.1-15.2) 10/03/22 03:59 Plt Count 243 thou/uL (152-406) 10/03/22 03:59 MPV 8.5 fL (7.6-11.3) 10/03/22 03:59 Neutrophils % 60.9 % (41.7-73.7) 10/03/22 03:59 Lymphocytes % 20.2 % (15.3-44.8) 10/03/22 03:59 Monocytes % 9.0 % (3.3-12.3) 10/03/22 03:59 Eosinophils % 8.7 % (0-4.4) H 10/03/22 03:59 Basophils % 1.2 % (0-1.3) 10/03/22 03:59 Absolute Neutrophils 4.4 K/uL (1.8-8.0) 10/03/22 03:59 Absolute Lymphocytes 1.5 K/uL (0.7-4.9) 10/03/22 03:59 Absolute Monocytes 0.6 K/uL (0.1-1.3) 10/03/22 03:59 Absolute Eosinophils 0.6 K/uL (0-0.5) H 10/03/22 03:59 Absolute Basophils 0.1 K/uL (0-0.5) 10/03/22 03:59 Sodium 139 mEq/L (136-145) 10/03/22 03:59 Potassium 4.3 mEq/L (3.5-5.1) 10/03/22 03:59 Chloride 107 mEq/L (98-107) 10/03/22 03:59 Carbon Dioxide 28 mEq/L (21-32) 10/03/22 03:59 Anion Gap 8.3 mEq/L (5.0-15.0) 10/03/22 03:59 BUN 15 mg/dL (7-18) 10/03/22 03:59 Creatinine 1.00 mg/dL (0.70-1.30) 10/03/22 03:59 Est GFR (CKD-EPI) 75 ml/min (=/>90) L 10/03/22 03:59 Glucose 126 mg/dL (74-106) H 10/03/22 03:59 POC Glucose 156 mg/dL (65-120) H 10/04/22 11:37 Calcium 8.8 mg/dL (8.5-10.1) 10/03/22 03:59 Magnesium 2.1 mg/dL (1.6-2.4) 10/03/22 03:59 Albumin 2.8 g/dL (3.4-5.0) L 10/03/22 03:59 Prealbumin 13.5 mg/dL (20-40) L 10/03/22 03:59 Urine Color Yellow (Yellow) 10/02/22 17:15 Urine Clarity Clear (Clear) 10/02/22 17:15 Urine pH 6.0 (5.0-7.0) 10/02/22 17:15 Ur Specific [place] 1.020 (1.005-1.030) 10/02/22 17:15 Glucose (UA)(Auto) Negative (Negative) 10/02/22 17:15 Urine Ketones Negative (Negative) 10/02/22 17:15 Urine Blood Negative (Negative) 10/02/22 17:15 Urine Nitrite Negative (Negative) 10/02/22 17:15 Urine Bilirubin Negative (Negative) 10/02/22 17:15 Urine Urobilinogen Normal (Normal) 10/02/22 17:15 Ur Leukocyte Esterase Negative [place]/uL (Negative) 10/02/22 17:15 Urine RBC <5 /HPF (None Seen) 10/02/22 17:15 Urine WBC <5 /HPF (<5) 10/02/22 17:15 Ur Squamous Epith Cells None seen /HPF (None Seen) 10/02/22 17:15 U Non-Squamous Epi Cells <5 /HPF (None Seen) 10/02/22 17:15 Unidentified Crystals Few /HPF (None Seen) 10/02/22 17:15 Urine Bacteria None seen /HPF (<20) 10/02/22 17:15 Urine Yeast (Budding) Trace /HPF (None Seen) H 10/02/22 17:15 Urine Culture Reflexed Not needed 10/02/22 17:15 Urine Total Protein Negative (Negative) 10/02/22 17:15 Weight: 235 lb Closed Surgical Incision Present: No Physician Update: Aspiration of thin liquids and now on nectar thick liquids. Making fair overall progress with therapy. BIMS 13, SLUMS 23. Poor memory and naming. Mod assistance with transfers. Walking 100' with mod assistance. Apparently gained about 40 lbs in 8 months. Will work on diet. Summary: Patient's care plan and intermission coordinator goals have been reviewed and revised as necessary. Please see the Rehabilitation Signature page for all necessary signatures.
--- NOTE | 2022-10-04 13:41 | RAD REPORT ---
EXAM DESCRIPTION: RAD - Barium Swallow Modified - 10/04/2022 1:20 pm CLINICAL HISTORY: Dysphagia/cough FINDINGS: LARYNGEAL PENETRATION: CLEARED PHARYNGEAL RESIDUE: VALLECULAR DELAYED AIRWAY CLOSURE RESULTING IN SUPRAGLOTTIC PENETRATION WITH THIN LIQUIDS. REDUCED TONGUE BASE R ETRATION RESULTING IN VALLECULAR RESIDUE AFTER THE SWALLOW. NO ASPIRATION Fourteen fluoroscopic spot series obtained. Fluoroscopy time 1.4 minutes
[2022-10-04] MEDS ORDERED: guaiFENesin 100 MG/5 ML UCUP PO PRN (14:52)
[2022-10-04] MEDS: IPRATROPIUM BROM 0.5MG/2.5ML NEB SCH (19:25)
[2022-10-04] MEDS: ALBUTEROL 2.5 MG/3 ML NEB SOL NEB SCH (19:25)
[2022-10-04] MEDS: ROSUVASTATIN 10 MG TAB PO SCH (19:55)
[2022-10-04] MEDS ORDERED: NA CHLORIDE 0.9% 250 ML ONE (21:04)
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
[2022-10-05] MEDS: PIPER TAZO 3.375 GM in NA CHLORIDE 0.9% 100 ML IV SCH ×3 (00:36→17:24)
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
[2022-10-05] MEDS: ALBUTEROL 2.5 MG/3 ML NEB SOL NEB SCH ×4 (01:40→19:20)
[2022-10-05] MEDS: IPRATROPIUM BROM 0.5MG/2.5ML NEB SCH ×4 (01:40→19:20)
[2022-10-05] MEDS: LEVOTHYROXINE SOD 0.125 MG TAB PO SCH (06:52)
[2022-10-05] MEDS: INSULIN -REGULAR HUMAN 50 UNIT/0.5 ML ML SQ SCH ×4 (07:20→19:51)
[2022-10-05] MEDS ORDERED: NA CHLORIDE 0.9% 1,000 ML IV SCH (08:00)
[2022-10-05] MEDS: NYSTATIN PWDR 100000 UNIT/GM TOP SCH ×2 (08:03→19:48)
[2022-10-05] MEDS: METFORMIN HCL 500 MG TAB PO SCH ×2 (08:03→17:26)
[2022-10-05] MEDS: VALACYCLOVIR 500 MG TAB PO SCH ×3 (08:03→19:47)
[2022-10-05] MEDS: levETIRAcetam 500 MG TAB PO SCH ×2 (08:03→19:48)
[2022-10-05] MEDS: LIDOCAINE 4% PATCH TOP SCH (08:04)
[2022-10-05] MEDS: AMLODIPINE 5 MG TAB PO SCH (08:04)
[2022-10-05] MEDS: GABAPENTIN 300 MG CAP PO SCH ×3 (08:06→19:47)
[2022-10-05] MEDS: METOPROLOL TAR 50 MG TAB PO SCH ×2 (08:06→19:48)
[2022-10-05] MEDS: DULOXETINE 20 MG CAP PO SCH ×2 (08:07→19:48)
[2022-10-05] MEDS: ACETAMINOPHEN 500 MG TAB PO PRN (08:40)
[2022-10-05] MEDS: GLUCERNA SHAKE 237 ML CAN PO SCH ×2 (08:41→19:48)
--- NOTE | 2022-10-05 11:48 | PN ---
Date of Progress Note: 10/05/2022 Subjective: Patient was seen this morning for followup. He was lying in bed, not in distress. Altagracia kearney has some cough and coughing up colored mucus as reported yesterday. No nausea, vomiting. Objective: Vital Signs: Reviewed. HEENT: Unremarkable. Lungs: Clear to auscultation. No wheezing. No rales. Not in respiratory distress. Heart: Normal. Abdomen: Soft. Bowel sounds normal. No guarding, rigidity, tenderness, distention. Extremities: No leg edema. Impression: 1.Pneumonia. 2.Subarachnoid and intraventricular hemorrhage. 3.Hypertension. 4.Hyperlipidemia. Plan: We will go ahead and continue current medication. Continue SCD for DVT prophylaxis. We will continue current antibiotic, which is Zosyn and physical therapy to be provided under guidance of Dr. Rodgers. I will see him tomorrow for followup. NIKI/MODL Voice ID: [id number] Report ID: [id number]
[2022-10-05] MEDS: ROSUVASTATIN 10 MG TAB PO SCH (19:48)
[2022-10-06] MEDS: PIPER TAZO 3.375 GM in NA CHLORIDE 0.9% 100 ML IV SCH ×3 (00:10→16:29)
[2022-10-06] MEDS: ALBUTEROL 2.5 MG/3 ML NEB SOL NEB SCH ×2 (01:20→08:45)
[2022-10-06] MEDS: IPRATROPIUM BROM 0.5MG/2.5ML NEB SCH ×2 (01:20→08:45)
[2022-10-06] MEDS ORDERED: NA CHLORIDE 0.9% 250 ML ONE (04:11)
[2022-10-06] MEDS: LEVOTHYROXINE SOD 0.125 MG TAB PO SCH (06:48)
[2022-10-06] MEDS: INSULIN -REGULAR HUMAN 50 UNIT/0.5 ML ML SQ SCH ×4 (07:30→21:00)
[2022-10-06] MEDS: LIDOCAINE 4% PATCH TOP SCH (07:40)
[2022-10-06] MEDS: METOPROLOL TAR 50 MG TAB PO SCH ×2 (07:42→21:22)
[2022-10-06] MEDS: levETIRAcetam 500 MG TAB PO SCH ×2 (07:42→21:22)
[2022-10-06] MEDS: AMLODIPINE 5 MG TAB PO SCH (07:42)
[2022-10-06] MEDS: METFORMIN HCL 500 MG TAB PO SCH ×2 (07:42→16:29)
[2022-10-06] MEDS: DULOXETINE 20 MG CAP PO SCH ×2 (07:43→21:22)
[2022-10-06] MEDS: GABAPENTIN 300 MG CAP PO SCH ×3 (07:43→21:22)
[2022-10-06] MEDS: GLUCERNA SHAKE 237 ML CAN PO SCH ×2 (07:45→21:23)
[2022-10-06] MEDS: VALACYCLOVIR 500 MG TAB PO SCH ×3 (07:47→21:24)
[2022-10-06] MEDS: NYSTATIN PWDR 100000 UNIT/GM TOP SCH ×2 (08:29→21:23)
--- NOTE | 2022-10-06 10:45 | PN ---
Date of Progress Note: 10/06/2022 Subjective: The patient was seen this morning for followup. No new complaints or problems reported by the patient. Lying in bed, not in any distress. His cough is better. Says he is coughing up les s mucus than before, so overall he feels better. Denies any chest pain, shortness of breath. No sebastian sea vomiting. Physical Examination: Vital Signs: Reviewed. This morning; temperature 97.3, pulse 71, respiratory rate 19, blood pressur e 158/79, oxygen saturation 94%. HEENT: Unremarkable. Lungs: Clear to auscultation. No wheezing. No rales. Heart: Sounds normal. Abdomen: Soft. Bowel sounds normal. No guarding, rigidity, tenderness, distention. Extremities: No leg edema. Impression: 1.Pneumonia. 2.Subarachnoid and intraventricular hemorrhage. 3.Hypertension. 4.Type 2 diabetes mellitus. Plan: We will go ahead and continue current antihypertensive medication and continue current diabete s management. SCD is in place for DVT prophylaxis. The patient will continue current Zosyn for pneu monia and nebulizer treatment will be changed now from every 6 hours to as needed. NIKI/MODL Voice ID: [id number] Report ID: [id number]
[2022-10-06] MEDS: ROSUVASTATIN 10 MG TAB PO SCH (21:22)
[2022-10-07] MEDS: PIPER TAZO 3.375 GM in NA CHLORIDE 0.9% 100 ML IV SCH ×3 (01:17→17:01)
[2022-10-07] MEDS: ALBUTEROL 2.5 MG/3 ML NEB SOL NEB PRN ×2 (01:40→17:00)
[2022-10-07] MEDS: IPRATROPIUM BROM 0.5MG/2.5ML NEB PRN (01:40)
[2022-10-07] MEDS: LEVOTHYROXINE SOD 0.125 MG TAB PO SCH (06:32)
[2022-10-07] MEDS: INSULIN -REGULAR HUMAN 50 UNIT/0.5 ML ML SQ SCH ×4 (07:30→19:54)
[2022-10-07] MEDS: GABAPENTIN 300 MG CAP PO SCH ×3 (07:50→19:53)
[2022-10-07] MEDS: levETIRAcetam 500 MG TAB PO SCH ×2 (07:50→19:53)
[2022-10-07] MEDS: VALACYCLOVIR 500 MG TAB PO SCH ×3 (07:50→19:53)
[2022-10-07] MEDS: DULOXETINE 20 MG CAP PO SCH ×2 (07:50→19:53)
[2022-10-07] MEDS: METOPROLOL TAR 50 MG TAB PO SCH ×2 (07:51→19:53)
[2022-10-07] MEDS: AMLODIPINE 5 MG TAB PO SCH (07:51)
[2022-10-07] MEDS: GLUCERNA SHAKE 237 ML CAN PO SCH ×2 (07:52→19:54)
[2022-10-07] MEDS: METFORMIN HCL 500 MG TAB PO SCH ×2 (07:53→17:01)
[2022-10-07] MEDS: LIDOCAINE 4% PATCH TOP SCH (10:22)
[2022-10-07] MEDS: NYSTATIN PWDR 100000 UNIT/GM TOP SCH ×2 (10:23→19:54)
[2022-10-07] MEDS: BACLOFEN 10 MG TAB PO SCH (13:58)
[2022-10-07] MEDS: MAGNESIUM OXIDE 400 MG TAB PO SCH ×2 (13:59→19:54)
[2022-10-07] MEDS ORDERED: MAGNESIUM OXIDE 400 MG TAB PO SCH ×2 (14:00→20:00)
[2022-10-07] MEDS: ROSUVASTATIN 10 MG TAB PO SCH (19:53)
[2022-10-07] MEDS ORDERED: PIPERACIL/TAZO 3.375 GM VIAL IV ONE (23:29)
[2022-10-08] MEDS: PIPER TAZO 3.375 GM in NA CHLORIDE 0.9% 100 ML IV SCH ×3 (00:18→16:50)
[2022-10-08] MEDS ORDERED: NA CHLORIDE 0.9% 250 ML ONE (00:34)
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
[2022-10-08] MEDS: IPRATROPIUM BROM 0.5MG/2.5ML NEB PRN (04:58)
[2022-10-08] MEDS: ALBUTEROL 2.5 MG/3 ML NEB SOL NEB PRN (04:58)
[2022-10-08] MEDS: LEVOTHYROXINE SOD 0.125 MG TAB PO SCH (06:25)
--- NOTE | 2022-10-08 06:51 | PN ---
Date of Progress Note: 10/07/2022 Subjective: Patient was seen this morning for followup. No new complaints or problems reported by t he patient. Lying in bed, not in any distress. Denies any chest pain, shortness of breath. His cou gh is better as he reports. Physical Examination: Vital Signs: Reviewed. Last pulse rate is 68, blood pressure 129/66, oxygen saturation 98% on room air. HEENT: Unremarkable. Lungs: Clear to auscultation. Heart: Sounds normal. Abdomen: Soft. Bowel sounds normal. No guarding, rigidity, tenderness, or distention. Extremities: No leg edema. Impression: 1.Pneumonia. 2.Subarachnoid and intraventricular hemorrhage. 3.Hypertension. 4.Type 2 diabetes mellitus. Plan: We will go ahead and continue current antibiotics, which is Zosyn. We will continue to follow with Dr. Rodgers from Rehab who is guiding the patient's physical therapy. Continue SCD for DVT pr ophylaxis and continue current diabetes and blood pressure medication. I will see him tomorrow for nazario garber. NIKI/MODL Voice ID: [id number] Report ID: [id number]
[2022-10-08] MEDS: METOPROLOL TAR 50 MG TAB PO SCH ×2 (07:15→19:46)
[2022-10-08] MEDS: AMLODIPINE 5 MG TAB PO SCH (07:15)
[2022-10-08] MEDS: ACETAMINOPHEN 500 MG TAB PO PRN (07:22)
[2022-10-08] MEDS: NYSTATIN PWDR 100000 UNIT/GM TOP SCH ×2 (07:23→19:47)
[2022-10-08] MEDS: LIDOCAINE 4% PATCH TOP SCH (07:24)
[2022-10-08] MEDS: GLUCERNA SHAKE 237 ML CAN PO SCH ×2 (07:25→19:48)
[2022-10-08] MEDS: BACLOFEN 10 MG TAB PO SCH (07:25)
[2022-10-08] MEDS: MAGNESIUM OXIDE 400 MG TAB PO SCH ×2 (07:25→19:46)
[2022-10-08] MEDS: levETIRAcetam 500 MG TAB PO SCH ×2 (07:25→19:46)
[2022-10-08] MEDS: DULOXETINE 20 MG CAP PO SCH ×2 (07:25→19:46)
[2022-10-08] MEDS: VALACYCLOVIR 500 MG TAB PO SCH ×3 (07:25→19:46)
[2022-10-08] MEDS: METFORMIN HCL 500 MG TAB PO SCH ×2 (07:26→16:50)
[2022-10-08] MEDS: GABAPENTIN 300 MG CAP PO SCH ×3 (07:26→19:46)
[2022-10-08] MEDS: INSULIN -REGULAR HUMAN 50 UNIT/0.5 ML ML SQ SCH ×4 (07:30→19:47)
--- NOTE | 2022-10-08 19:42 | PN ---
Date of Progress Note: 10/08/2022 Subjective: The patient was seen this morning for followup. No new complaints or problems reported by him. Lying in bed, not in any distress. Objective: Vital Signs: Reviewed. HEENT: Unremarkable. Lungs: Clear to auscultation. Heart: Sounds normal. Abdomen: Soft. Bowel sounds normal. No guarding, rigidity, tenderness, distention. Extremities: No leg edema. Impression: 1.Pneumonia. 2.Subarachnoid and intraventricular hemorrhage. 3.Hypertension. 4.Type 2 diabetes mellitus. Plan: We will go ahead and continue current antibiotic, continue physical therapy under guidance of Dr. Rodgers. Continue SCD for DVT prophylaxis and I will see him tomorrow for followup. NIKI/MODL Voice ID: [id number] Report ID: [id number]
[2022-10-08] MEDS: ROSUVASTATIN 10 MG TAB PO SCH (19:45)
[2022-10-09] MEDS: PIPER TAZO 3.375 GM in NA CHLORIDE 0.9% 100 ML IV SCH ×3 (00:01→16:23)
[2022-10-09] MEDS: LEVOTHYROXINE SOD 0.125 MG TAB PO SCH (06:49)
[2022-10-09] MEDS: VALACYCLOVIR 500 MG TAB PO SCH ×2 (07:10→13:48)
[2022-10-09] MEDS: METOPROLOL TAR 50 MG TAB PO SCH ×2 (07:11→19:37)
[2022-10-09] MEDS: AMLODIPINE 5 MG TAB PO SCH (07:11)
[2022-10-09] MEDS: METFORMIN HCL 500 MG TAB PO SCH ×2 (07:11→16:23)
[2022-10-09] MEDS: DULOXETINE 20 MG CAP PO SCH ×2 (07:12→19:35)
[2022-10-09] MEDS: levETIRAcetam 500 MG TAB PO SCH ×2 (07:12→19:35)
[2022-10-09] MEDS: BACLOFEN 10 MG TAB PO SCH (07:12)
[2022-10-09] MEDS: GABAPENTIN 300 MG CAP PO SCH ×3 (07:12→19:35)
[2022-10-09] MEDS: GLUCERNA SHAKE 237 ML CAN PO SCH ×2 (07:12→19:36)
[2022-10-09] MEDS: MAGNESIUM OXIDE 400 MG TAB PO SCH ×2 (07:13→19:36)
[2022-10-09] MEDS: INSULIN -REGULAR HUMAN 50 UNIT/0.5 ML ML SQ SCH ×4 (07:30→19:40)
[2022-10-09] MEDS: LIDOCAINE 4% PATCH TOP SCH (08:52)
[2022-10-09] MEDS: NYSTATIN PWDR 100000 UNIT/GM TOP SCH ×2 (08:52→19:36)
[2022-10-09] MEDS: ACETAMINOPHEN 500 MG TAB PO PRN (12:26)
[2022-10-09] MEDS: ALBUTEROL 2.5 MG/3 ML NEB SOL NEB PRN (14:53)
[2022-10-09] MEDS: IPRATROPIUM BROM 0.5MG/2.5ML NEB PRN (14:53)
--- NOTE | 2022-10-09 15:54 | RAD REPORT ---
EXAM DESCRIPTION: RAD - Chest Pa And Lat (2 Views) - 10/09/2022 3:46 pm CLINICAL HISTORY: pneumonia Chest pain. COMPARISON: <Comparisons> FINDINGS: The lungs are emphysematous. Small pleural effusion. The heart is mildly enlarged with a t ortuous thoracic aorta. No displaced fractures. Sternotomy wires. IMPRESSION: Prominent COPD. The USPSTF recommends annual screening for lung cancer with low-dose CT (LDCT) in adults aged 50 to 8 0 years who have a 20 pack-year smoking history and currently smoke or have quit within the past 15 y ears.
[2022-10-09] MEDS: ROSUVASTATIN 10 MG TAB PO SCH (19:35)
[2022-10-10] MEDS: PIPER TAZO 3.375 GM in NA CHLORIDE 0.9% 100 ML IV SCH ×3 (00:30→17:09)
[2022-10-10 04:52] LABS: Absolute Lymphocytes (CBC) 1.1 K/uL (0.7-4.9); Hematocrit 40.5 % (39.6-49.0); Lymphocytes % 16.6 % (15.3-44.8); MCV 94.5 fL (80-100); MPV 8.5 fL (7.6-11.3); Platelets 235 thou/uL (152-406); RBC Red Blood Cell Count 4.28 M/uL (4.33-5.43)
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
[2022-10-10 05:12] LABS: Albumin 2.8 g/dL (3.4-5.0); Magnesium 2.3 mg/dL (1.6-2.4); Potassium 3.9 mEq/L (3.5-5.1); Prealbumin 15.4 mg/dL (20-40)
[2022-10-10] MEDS: LEVOTHYROXINE SOD 0.125 MG TAB PO SCH (07:08)
[2022-10-10] MEDS: INSULIN -REGULAR HUMAN 50 UNIT/0.5 ML ML SQ SCH ×4 (07:16→20:43)
[2022-10-10] MEDS: BACLOFEN 10 MG TAB PO SCH (08:00)
[2022-10-10] MEDS: GLUCERNA SHAKE 237 ML CAN PO SCH ×2 (08:00→19:10)
[2022-10-10] MEDS: LIDOCAINE 4% PATCH TOP SCH (08:26)
[2022-10-10] MEDS: NYSTATIN PWDR 100000 UNIT/GM TOP SCH ×2 (08:26→19:11)
[2022-10-10] MEDS: levETIRAcetam 500 MG TAB PO SCH ×2 (08:28→19:09)
[2022-10-10] MEDS: METFORMIN HCL 500 MG TAB PO SCH ×2 (08:29→17:12)
[2022-10-10] MEDS: GABAPENTIN 300 MG CAP PO SCH ×3 (08:29→19:09)
[2022-10-10] MEDS: METOPROLOL TAR 50 MG TAB PO SCH ×2 (08:29→19:11)
[2022-10-10] MEDS: AMLODIPINE 5 MG TAB PO SCH (08:29)
[2022-10-10] MEDS: MAGNESIUM OXIDE 400 MG TAB PO SCH ×2 (08:30→19:10)
[2022-10-10] MEDS: DULOXETINE 20 MG CAP PO SCH ×2 (08:30→19:09)
[2022-10-10] MEDS: ROSUVASTATIN 10 MG TAB PO SCH (19:09)
--- NOTE | 2022-10-10 20:20 | PN ---
Date of Progress Note: 10/09/2022 Subjective: The patient was seen this morning for followup. He was lying in bed, sleeping, easily a rousable, not in any distress. Objective: Vital Signs: Reviewed. HEENT: Unremarkable. Lungs: Clear to auscultation. Heart: Sounds normal. Abdomen: Soft. Bowel sounds normal. No guarding, rigidity, tenderness, distention. Extremities: No leg edema. Impression: 1.Pneumonia. 2.Hypertension. 3.Hyperlipidemia. 4.Type 2 diabetes mellitus. 5.Coronary artery disease. Plan: We will continue current medication, continue current antibiotics. Chest x-ray results review ed. Continue physical therapy under guidance of Dr. Rodgers and I will see him tomorrow for followu adrien PRINCE/ALFRED Voice ID: [id number] Report ID: [id number]
--- NOTE | 2022-10-10 20:27 | PN ---
Date of Progress Note: 10/10/2022 Subjective: The patient was seen this morning for followup. No new complaints or problems reported by the patient. He was sleeping, easily arousable, not in any distress. Denies any constipation. N o shortness of breath. Overall, his cough is better. Objective: Vital Signs: Reviewed. HEENT: Unremarkable. Lungs: Clear to auscultation. Heart: Sounds normal. Abdomen: Soft. Bowel sounds normal. No guarding, rigidity, tenderness, distention. Extremities: No leg edema. Impression: 1.Pneumonia. 2.Hypertension. 3.Type 2 diabetes mellitus. 4.Coronary artery disease. Plan: We will go ahead and discontinue Zosyn as of tomorrow, continue physical therapy under grey james of Dr. Rodgers. We will continue SCD for DVT prophylaxis and continue other medical management. Lab results reviewed. The patient is scheduled to go home day after tomorrow. NIKI/MODL Voice ID: [id number] Report ID: [id number]
[2022-10-11] MEDS: LEVOTHYROXINE SOD 0.125 MG TAB PO SCH (06:52)
[2022-10-11] MEDS: INSULIN -REGULAR HUMAN 50 UNIT/0.5 ML ML SQ SCH ×4 (07:13→20:06)
[2022-10-11] MEDS: LIDOCAINE 4% PATCH TOP SCH ×2 (07:55→08:00)
[2022-10-11] MEDS: NYSTATIN PWDR 100000 UNIT/GM TOP SCH ×2 (07:56→19:38)
[2022-10-11] MEDS: DULOXETINE 20 MG CAP PO SCH ×2 (07:56→19:36)
[2022-10-11] MEDS: METFORMIN HCL 500 MG TAB PO SCH ×2 (07:56→16:53)
[2022-10-11] MEDS: levETIRAcetam 500 MG TAB PO SCH ×2 (07:56→19:36)
[2022-10-11] MEDS: METOPROLOL TAR 50 MG TAB PO SCH ×2 (07:57→19:37)
[2022-10-11] MEDS: MAGNESIUM OXIDE 400 MG TAB PO SCH ×2 (07:57→19:37)
[2022-10-11] MEDS: BACLOFEN 10 MG TAB PO SCH (07:58)
[2022-10-11] MEDS: GLUCERNA SHAKE 237 ML CAN PO SCH ×2 (07:58→19:38)
[2022-10-11] MEDS: GABAPENTIN 300 MG CAP PO SCH ×3 (08:44→19:37)
[2022-10-11] MEDS: AMLODIPINE 5 MG TAB PO SCH (11:58)
--- NOTE | 2022-10-11 13:17 | P.RH.PN ---
Estimated Length of Stay: 11 Expected Discharge Date: 10/11/22 Discharge Disposition Plan: Home Family Support: Yes Correction Goal: Mobility Vital Signs: Last Vital Signs Temp 97.5 F 10/11/22 06:47 Pulse 77 10/11/22 12:09 Resp 18 10/11/22 06:47 BP 112/61 10/11/22 12:09 Pulse Ox 96 10/11/22 06:47 Laboratory: Laboratory Last Values WBC 6.70 thou/uL (4.3-10.9) 10/10/22 04:33 RBC 4.28 M/uL (4.33-5.43) L 10/10/22 04:33 Hgb 13.5 g/dL (13.6-17.9) L 10/10/22 04:33 Hct 40.5 % (39.6-49.0) 10/10/22 04:33 MCV 94.5 fL (80-100) 10/10/22 04:33 MCH 31.5 pg (27.0-35.0) 10/10/22 04:33 MCHC 33.4 g/dL (32.0-36.0) 10/10/22 04:33 RDW 15.2 % (12.1-15.2) 10/10/22 04:33 Plt Count 235 thou/uL (152-406) 10/10/22 04:33 MPV 8.5 fL (7.6-11.3) 10/10/22 04:33 Neutrophils % 67.2 % (41.7-73.7) 10/10/22 04:33 Lymphocytes % 16.6 % (15.3-44.8) 10/10/22 04:33 Monocytes % 8.6 % (3.3-12.3) 10/10/22 04:33 Eosinophils % 7.4 % (0-4.4) H 10/10/22 04:33 Basophils % 0.2 % (0-1.3) 10/10/22 04:33 Absolute Neutrophils 4.5 K/uL (1.8-8.0) 10/10/22 04:33 Absolute Lymphocytes 1.1 K/uL (0.7-4.9) 10/10/22 04:33 Absolute Monocytes 0.6 K/uL (0.1-1.3) 10/10/22 04:33 Absolute Eosinophils 0.5 K/uL (0-0.5) 10/10/22 04:33 Absolute Basophils 0.0 K/uL (0-0.5) 10/10/22 04:33 Sodium 137 mEq/L (136-145) 10/10/22 04:33 Potassium 3.9 mEq/L (3.5-5.1) 10/10/22 04:33 Chloride 107 mEq/L (98-107) 10/10/22 04:33 Carbon Dioxide 25 mEq/L (21-32) 10/10/22 04:33 Anion Gap 8.9 mEq/L (5.0-15.0) 10/10/22 04:33 BUN 14 mg/dL (7-18) 10/10/22 04:33 Creatinine 0.98 mg/dL (0.70-1.30) 10/10/22 04:33 Est GFR (CKD-EPI) 77 ml/min (=/>90) L 10/10/22 04:33 Glucose 100 mg/dL (74-106) 10/10/22 04:33 POC Glucose 103 mg/dL (65-120) 10/11/22 11:13 Calcium 8.7 mg/dL (8.5-10.1) 10/10/22 04:33 Magnesium 2.3 mg/dL (1.6-2.4) 10/10/22 04:33 Albumin 2.8 g/dL (3.4-5.0) L 10/10/22 04:33 Prealbumin 15.4 mg/dL (20-40) L 10/10/22 04:33 Urine Color Yellow (Yellow) 10/02/22 17:15 Urine Clarity Clear (Clear) 10/02/22 17:15 Urine pH 6.0 (5.0-7.0) 10/02/22 17:15 Ur Specific Norris 1.020 (1.005-1.030) 10/02/22 17:15 Glucose (UA)(Auto) Negative (Negative) 10/02/22 17:15 Urine Ketones Negative (Negative) 10/02/22 17:15 Urine Blood Negative (Negative) 10/02/22 17:15 Urine Nitrite Negative (Negative) 10/02/22 17:15 Urine Bilirubin Negative (Negative) 10/02/22 17:15 Urine Urobilinogen Normal (Normal) 10/02/22 17:15 Ur Leukocyte Esterase Negative Juno/uL (Negative) 10/02/22 17:15 Urine RBC <5 /HPF (None Seen) 10/02/22 17:15 Urine WBC <5 /HPF (<5) 10/02/22 17:15 Ur Squamous Epith Cells None seen /HPF (None Seen) 10/02/22 17:15 U Non-Squamous Epi Cells <5 /HPF (None Seen) 10/02/22 17:15 Unidentified Crystals Few /HPF (None Seen) 10/02/22 17:15 Urine Bacteria None seen /HPF (<20) 10/02/22 17:15 Urine Yeast (Budding) Trace /HPF (None Seen) H 10/02/22 17:15 Urine Culture Reflexed Not needed 10/02/22 17:15 Urine Total Protein Negative (Negative) 10/02/22 17:15 Weight: 235 lb Within Defined Parameters: Yes Wound Present: No Closed Surgical Incision Present: No Physician Update: Eating 50%. Hgb-13.5. GFR-77. Pain is 4/10; on tylenol, gabapentin, and Lidocaine patch. BP and BS stable. Massages and repositioning for pain control. [facility] ; leaving to go live with his son. Nutritional Needs: Improved on swallowing Functional Improvement: Improved on all his goals and accomplished all goals. Pushing wheelchairs Functional Improvement Occupational Therapy: He has been participating and accomplishing all his goals. Dietary discussions as well. Speech Therapy Update: Improved on swallowing Summary: Patient's care plan and terminal worker goals have been reviewed and revised as necessary. Please see the Rehabilitation Signature page for all necessary signatures.
[2022-10-11] MEDS: ROSUVASTATIN 10 MG TAB PO SCH (19:38)
--- NOTE | 2022-10-11 20:03 | PN ---
Date of Progress Note: 10/11/2022 Subjective: The patient was seen this morning for followup. He was sleeping, not in any distress. Denied any new complaints. Objective: Vital Signs: Reviewed. HEENT: Unremarkable. Lungs: Clear to auscultation. Heart: Sounds normal. Abdomen: Soft. Bowel sounds normal. No guarding, rigidity, tenderness, distention. Extremities: No leg edema. Impression: 1.Pneumonia, resolved. 2.Subarachnoid and intraventricular hemorrhage. 3.Hypertension. 4.Type 2 diabetes mellitus. 5.Hyperlipidemia. Plan: We will go ahead and continue current medication. Continue current physical therapy under mayr florentinoce of Dr. Rodgers and the patient is scheduled to go home tomorrow. He will be living with his s on upon discharge. I will see him tomorrow morning for followup. NIKI/MODL Voice ID: [id number] Report ID: [id number]
[2022-10-12] MEDS: LEVOTHYROXINE SOD 0.125 MG TAB PO SCH (07:09)
[2022-10-12] MEDS: INSULIN -REGULAR HUMAN 50 UNIT/0.5 ML ML SQ SCH (07:19)
[2022-10-12] MEDS: BACLOFEN 10 MG TAB PO SCH (08:00)
[2022-10-12] MEDS: GLUCERNA SHAKE 237 ML CAN PO SCH (08:00)
[2022-10-12] MEDS: LIDOCAINE 4% PATCH TOP SCH (08:00)
[2022-10-12] MEDS: NYSTATIN PWDR 100000 UNIT/GM TOP SCH (08:13)
[2022-10-12] MEDS: DULOXETINE 20 MG CAP PO SCH (08:14)
[2022-10-12] MEDS: GABAPENTIN 300 MG CAP PO SCH (08:14)
[2022-10-12] MEDS: METFORMIN HCL 500 MG TAB PO SCH (08:14)
[2022-10-12] MEDS: METOPROLOL TAR 50 MG TAB PO SCH (08:14)
[2022-10-12] MEDS: levETIRAcetam 500 MG TAB PO SCH (08:15)
[2022-10-12 08:16] VITALS: BP 160/81; TEMP 97.2
[2022-10-12] MEDS: MAGNESIUM OXIDE 400 MG TAB PO SCH (08:19)
[2022-10-12 09:04] VITALS: O2SAT 94
[2022-10-12] MEDS: AMLODIPINE 5 MG TAB PO SCH (09:59)
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
== END 2022-10-12 11:40 | disposition home or self-care (01) | DRG 91 ==
LOC: 5TH 15:15
PROVIDERS: ADMIT Internal Medicine; ATTEND Internal Medicine
DX: S06.5XAS Traumatic subdural hemorrhage with loss of consciousness status unknown, sequela (principal); J69.0 Pneumonitis due to inhalation of food and vomit; G81.91 Hemiplegia, unspecified affecting right dominant side; E11.9 Type 2 diabetes mellitus without complications; I10 Essential (primary) hypertension; E03.9 Hypothyroidism, unspecified; K59.00 Constipation, unspecified; B00.9 Herpesviral infection, unspecified; F32.A Depression, unspecified; G30.9 Alzheimer's disease, unspecified; F02.80 Dementia in other diseases classified elsewhere, unspecified severity, without behavioral disturbance, psychotic disturbance, mood disturbance, and anxiety; E78.2 Mixed hyperlipidemia; I25.10 Atherosclerotic heart disease of native coronary artery without angina pectoris; I48.0 Paroxysmal atrial fibrillation; R53.81 Other malaise; M15.9 Polyosteoarthritis, unspecified; D64.9 Anemia, unspecified; G47.00 Insomnia, unspecified; V49.9XXS Car occupant (driver) (passenger) injured in unspecified traffic accident, sequela; Z87.891 Personal history of nicotine dependence
CPT/HCPCS: 36415; 71045; 71046; 74230; 80048; 81001; 82040; 82947; 83735; 84134; 85025; 87070; 87086; 87088; 87205; 92523; 92610; 92611; 94010; 94640; 97110; 97112; 97116; 97129; 97163; 97165; 97530; 97542; J2001; J2543; J7030; J7050; J7613; J7644

== ENCOUNTER 2023-01-28 05:59 | Observation (INO) | payer OTHER ==
[2023-01-24 10:27] LABS: Absolute Lymphocytes (CBC) 1.7 K/uL (0.7-4.9); Hematocrit 47.9 % (39.6-49.0); Lymphocytes % 24.3 % (15.3-44.8); MCV 95.2 fL (80-100); Platelets 171 thou/uL (152-406); RBC Red Blood Cell Count 5.03 M/uL (4.33-5.43)
[2023-01-24 10:35] LABS: Specific Gravity 1.024 (1.005-1.030); Urine Bacteria None Seen /HPF (<20); Urine Bilirubin NEGATIVE (Negative); Urine Blood Negative (Negative); Urine Clarity Clear (Clear); Urine Color Yellow (Yellow); Urine Glucose NEGATIVE (Negative); Urine Mucus Slight /HPF (None Seen); Urine Protein TRACE (Negative); Urine RBC <5 /HPF (None Seen); Urine Urobilinogen Normal (Normal)
[2023-01-24 10:38] LABS: Protime INR 1.12
[2023-01-24 10:55] LABS: Albumin 3.5 g/dL (3.4-5.0); Bilirubin Total 0.7 mg/dL (0.2-1.0); Potassium 4.8 mEq/L (3.5-5.1); Protein, Total 8.2 g/dL (6.4-8.2)
[2023-01-28] MEDS ORDERED: EPINEPHRINE/PF 1 MG/ML AMP ONE ×2 (06:13→07:32)
[2023-01-28] MEDS ORDERED: dexAMETHasone 10 MG/ML VIAL ONE ×2 (06:13→07:32)
[2023-01-28] MEDS ORDERED: FENTANYL CITR 100 MCG/2 ML ONE ×2 (06:13→07:32)
[2023-01-28] MEDS ORDERED: propofoL 200 MG/20 ML VIAL IV ONE ×2 (06:13→07:32)
[2023-01-28] MEDS ORDERED: BUPIVACAINE 0.25% PF 30 ML VIAL ONE ×2 (06:13→07:32)
[2023-01-28] MEDS ORDERED: LIDOCAINE 1% MPF 5 ML VIAL ONE ×2 (06:13→07:32)
[2023-01-28] MEDS ORDERED: CELECOXIB 100 MG CAPSULE ONE (06:22)
[2023-01-28] MEDS ORDERED: CEFAZOLIN SODIUM 2 GM/VIAL ONE (06:22)
[2023-01-28] MEDS ORDERED: GABAPENTIN 100 MG CAP ONE (06:22)
[2023-01-28] MEDS ORDERED: NA CHLORIDE 0.9% 1,000 ML ONE (06:23)
[2023-01-28] MEDS ORDERED: Oxycodone HCl/Acetaminophen 5/325 MG TAB ONE (06:23)
[2023-01-28] MEDS ORDERED: ACETAMINOPHEN 500 MG TAB ONE (06:23)
[2023-01-28] MEDS: TRANEXAMIC ACID 1,000 MG/10 ML VIAL IV ONE ×2 (07:12→09:16)
[2023-01-28] MEDS ORDERED: LIDOCAINE 2% MPF 5 ML VIAL ONE ×3 (07:19→07:32)
[2023-01-28] MEDS ORDERED: KETAMINE HCL IN 0.9 % NACL 50 MG/5 ML SYRINGE IV ONE (07:32)
[2023-01-28] MEDS ORDERED: EPHEDRINE SULF 50 MG/ML VIAL ONE (07:32)
[2023-01-28] MEDS ORDERED: NS 0.9% VIAL 10 ML ONE (07:41)
[2023-01-28] MEDS ORDERED: TRANEXAMIC ACID 1,000 MG/10 ML VIAL IV ONE (08:35)
[2023-01-28] MEDS ORDERED: DOCUSATE NA 100 MG CAP PO PRN (09:39)
[2023-01-28] MEDS ORDERED: ONDANSETRON 4 MG/2 ML VIAL IV PRN (09:39)
--- NOTE | 2023-01-28 09:39 | P.BOP ---
Preoperative diagnosis: left knee DJD Postoperative diagnosis: same Primary procedure: Left total knee arthoplasty Estimated blood loss: 100 ccs Anesthesia: General Complications: None Transferred to: Recovery Room Condition: Good
--- NOTE | 2023-01-28 10:43 | OP ---
Date of Procedure: 01/28/2023 Surgeon: Behzad Montes MD Preoperative Diagnosis: Left knee degenerative joint disease. Postoperative Diagnosis: Left knee degenerative joint disease. Procedure: Left total knee arthroplasty using the [employer] system. Estimated Blood Loss: 100 cc. Complications: There were no complications. Indications For Operation: Mr. Castro is an 82-year-old male, who previously underwent an uneventf ul right total knee arthroplasty by me and did well. He also has similar problems as well as debilit ating pain in his left side. We discussed further conservative care, but at this time, he desires to jameson knee arthroplasty on the left and risks, benefits, and alternatives to this procedure have been d iscussed with him. He states he understands things as presented and wished to proceed. Procedure In Detail: Patient was taken to the operating room. He had previously had a block in the holding area. General anesthesia was easily obtained by the Anesthesia staff. Following this, a wel l-padded tourniquet was placed on superior left thigh. Left lower extremity was then prepped and sara ped in the usual fashion for the procedure. The leg was then elevated, gently exsanguinated, and the knee is bent. Tourniquet was raised. A standard incision anteriorly was taken down carefully throu gh skin and soft tissues. Meticulous hemostasis being maintained using Bovie electrocautery. There is rather a significant amount of tough bursal tissue, some of which was debrided. However, the sheridan ect plane is identified and the extensor mechanism is exposed. The extensor mechanism is then marked at its superomedial portion and a standard medial parapatellar arthrotomy was then performed with li beration of approximately 60 cc of rather normal-appearing synovial fluid. After this, some fat pad is removed to allow for eversion of the patella and the medial and lateral menisci are excised as wel l as the anterior cruciate ligament. Attention is first turned to the femur and an intramedullary al ignment guide was then used to establish alignment. The distal cut is made. It is then sized. It i s sized to the exact size of his contralateral side and the remainder of the femoral cuts were then p erformed with the exception of the box. After this, attention is turned to the tibia. Tibia is cut in standard fashion using the external tibial alignment guide. It is then trialed using a trial poly with the appropriately-sized tibial base plate. It comes to full extension, appears to be balanced in both flexion and extension. Attention is then turned to the patella. The patella is then caliper ed and cut and patellar button is then affixed. It is then brought through range of motion. Patella button appears to glide excellently. After this, all of the trial components are removed and the ti raffi is punched. The box is then cut in a standard fashion. The surface is then prepped for cementat ion and tibial base plate as well as femur are placed with the use of a trial poly. Patella is also affixed and these are held in place and allowed to dry. Any aberrant cement or unsupported cement is removed. After this was brought through a range of motion and the patella glides excellently, appea rs to be balanced in both flexion and extension, however, it may be slightly loose, decided to trial with a size 12. Size 12 also comes out to full extension and appears to be well balanced. I think i t is actually a better fit and equivalent to the size he had on the contralateral side. Therefore, t he final polyethylene is a size 12. It was then held in place using the locking bar. The wound is c opiously irrigated and the fascia is closed in a watertight fashion using heavy Ethibond sutures. It was then irrigated again. The skin was closed using Vicryl sutures and followed by isidro. Jenifer crowell is then placed in a very well-padded sterile dressing, awakened, and taken to recovery room in good condition. There were no complications. SE/MODL Voice ID: [id number] Report ID: [id number]
--- OUTSIDE RECORDS SUMMARY | 2023-01-28 11:52 | XMS REPORT | Continuity of Care Document ---
:1940 Author Organization [facility] t Address [address] [place] [address] Care Team Providers Name Role Phone Kevin Jones MD Primary Care Physician Kevin Jones Attending Clinician Unavailable CARLOS BHAT Attending Clinician STAN Bustamante Attending Clinician Unavailable OCTAVIANO ZAMBRANO Attending Clinician Unavailable Wilber Gomez Attending Clinician Jo Ann Harp Attending Clinician Jaycob Worley Attending Clinician SHANE BLAS Attending Clinician Unavailable SHINE TALAVERA Attending Clinician Unavailable CARLOS BHAT Admitting Clinician STAN Bustamante Admitting Clinician Unavailable Shorty Finnegan Admitting Clinician GAGAN VARELA Admitting Clinician Unavailable SHINE TALAVERA Admitting Clinician Unavailable Payers Payer Name Policy Type Policy Number Effective Date Expiration Date Juana willams [employer] MEDICARE PPO [id number] 2022 00:00:00 AETNA MEDICARE O [id number] 2018 POS PPO 00:00:00 Problems Condition Condition Condition Status Onset Resolution Last Treating Co mments Source Name Details Category Date Date Treatment Clinician Date SAH SAH Diagnosis Active 2022-10-08 Mem oria Active 09-25 21:56:00 l 09/25/2022 00:00: [place] [address] [facility] Coagulopat Coagulopat Disease Recur[facility] [...] [facility] Myoclonus Myoclonus Problem Active 2021-11-18 Memoria (finding) (finding) 07-09 21:55:35 l Active 00:00: Robin 07/09/2016 00 Problem 11/18/2021 [facility] Amnesia Amnesia Problem Active 2021-11-18 Me moria (finding) (finding) 07-26 21:55:35 l Active 00:00: Robin 07/27/2015 00 Problem 11/18/2021 [facility] Diabetes Diabetes Problem Active 2021-11-18 Memoria mellitus mellitus 21:55:35 l type 2 type 2 Eloy (disorder) (disorder) Active Problem 11/18/2021 [facility] Hypothyroi Hypothyro Problem Active 2021-11-18 Memoria dism idism 21:55:35 l (disorder[facility] 11/18/2021 [facility] 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, type, senile senile onset onset (disorder) (disorder) Active Problem 11/18/2021 [facility] Syncope Syncope Problem Active 2021-11-18 Me moria (disorder) (disorder) 21:55:35 l Active Eloy Problem 11/18/2021 [facility] TRAUM TRAUM Diagnosis Active 2022-10-08 Mem oria SUBRAC HEM SUBRAC HEM 21:56:00 l WITH LOC WITH LOC Tolu n STATUS STATUS UNKNOWN UNKNOWN Active [facility] S06.5X0A - S06.5X0A Diagnosis Active 2022-10-31 Memoria TRAUM - TRAUM 16:28:00 l SUBDR HEM SUBDR HEM Herm gilbert W/O LOSS W/O LOSS OF C OF C Active ANDRESSA Quintero DM DM Disease [facility] (diabetes (diabetes n[facility] mellitus) mellitus) [facility] 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 disease [facility] Atrial Atrial Disease Recurre [facility] fibrillati fibrillati wye Yen kes on [facility] Hypertensi Hypertensi Disease Active C [facility] on [facility] Aortic Aortic Disease Active [facility] stenosis stenosis [employer] Allergies, Adverse Reactions, Alerts Allergy Allergy Status Severity Reaction(s) Onset Inactive Treating Comm ents Source Name Type Date Date Clinician No Known No Known Active Memori a Medicati Medicati l on on Robin Allergie Allergie s s NO KNOWN Allergy Active SLE ALLERGIE S Family History Family Member Diagnosis Comments Start Date Stop Date Source Natural father Heart disease [facility] Natural mother Diabetes [facility] Natural mother Heart disease [facility] Social History Social Habit Start Date Stop Date Quantity Comments Source Gender identity [facility] History of tobacco Chews Tobacco [facility] use [facility] History SDOH [facility] Alcohol Std Drinks [facility] Center History SDOH [facility] Alcohol Binge Medical [facility] History SDOH [facility] Alcohol Comment Medical C enter Sexual orientation [facility] Tobacco use and 2022-10-31 2022-10-31 Smokeless [facility] exposure 00:00:00 00:00:00 tobacco non-user Social History 2020-01-14 2020-01-14 Bright lind 16:52:28 16:52:28 Alcohol intake 2018-07-22 2018-07-[address] [facility] 00:00:00 00:00:00 non-drinker of Medical Ce nter alcohol (finding) History SDOH 2018-07-09 2018-07-09 1 EDITH Arreguin Alcohol Frequency 00:00:00 00:00:00 [facility] Cigarettes smoked 2018-07-09 2018-07-09 EDITH Arreguin current (pack per 00:00:00 00:00:00 Medical Center day) - Reported Cigarette 2018-07-09 2018-07-09 EDITH Arreguin pack-years 00:00:00 00:00:00 Medical Center Sex Assigned At [birth year] EDITH Whites 00:00:00 00:00:00 [facility] Center Smoking Status Start Date Stop Date Source Tobacco smoking consumption [facility] unknown Never smoked tobacco [facility] Tobacco smoking status 2022-09-26 09:50:44 2022-09-26 09:50:44 [facility] [place] Medications Ordered Filled Start Stop Current Ordering Indication Dosage Frequency Signature Comments Components Source Medication Medication Date Date Medication? Clinician (SIG) Name Name DULoxetine 2022-0 Yes QD Take by [facility] (Cymbalta) 8-24 mouth [address] 11:48: (one) time capsule 48 each day. donepezil 0 Yes 10mg Take 10 mg [facility] (Aricept) 8-24 by mouth. Healt h 10 MG 11:48: tablet 48 metFORMIN 2022-0 Yes 500mg QD Take 500 [facility] (Glucophage 8-24 mg by Health ) 500 MG 11:48: mouth 1 tablet 48 (one) time each day. levETIRAcet 2022-0 Yes 500mg Q.5D Take 500 U T am (Keppra) 8-24 mg by Health 500 MG 11:48: mouth in tablet 48 the morning and 500 mg before bedtime. phenol 2022-0 Yes 1 spray, Memoria topical 7-26 MUCOUS l 1.4% spray 15:52: MEM Robin 00 Daily, PRN Sore Throat, 0 Refill(s) ondansetron 2022-0 Yes 4 mg = 2 Me moria 2 mg/mL 7-26 mL, IVP, l injectable 15:52: Q8H, PRN Her valente solution 00 Nausea & Vomiting, 0 Refill(s) DuoNeb Yes 3 mL, NEB, Memor ia inhalation 10-02 RQ4H, 0 l solution 15:51: Refill(s) Herm levETIRAcet Yes 500 mg = 1 Memoria am 500 mg - tab, PO, l oral tablet 15:51: Q12H, 0 Her valente 00 Refill(s) piperacilli Yes /= 20 Memor ia n-tazobacta 7-26 mL/min or l m 15:51: CVVHD), 0 Eloy 00 Refill(s) polyethylen Yes 17 gm, PO, Memoria e glycol 7- BID, 0 l 3350 oral 15:51: Refill(s) Her valente powder for 00 reconstitut ion acetaminoph Yes 100.4 F, M emoria en 325 mg 10-02 0 l oral 15:51: Refill(s) Eloy tablet. 00 lactulose Yes Notes: Memori a 10 g/15 mL - (Same l oral syrup 22:00: as:Chronul H erm ac) DuoNeb Yes Notes: Memoria inhalation - (Same as: l solution 16:00: Duoneb) Tolu n Chlorasepti Yes Notes: Ulises sasha c 1.4% 09-28 Chlorasept l spray 22:02: ic [place] (Same as: Chlorasept ic, Sore Throat [place]) WASTE: F/P - Black; E - Municipal Trash Bin Lasix No Notes: Memoria 7-22 (Same as: l 16:49: Lasix) DuoNeb No Notes: Memoria inhalation 7-22 (Same as: l solution 13:00: Duoneb) Tolu n DuoNeb No Notes: Memoria inhalation 7-22 (Same as: l solution 03:06: Duoneb) Tolu n heparin Yes Notes: Memoria 7-21 porcine l 21:00: heparin Zosyn Yes Notes: Memoria 7-21 (Same as: l 20:30: Zosyn) Dosing based on Piperacill in component MEDICATION WASTE Product Size: 3375 mg Product Wasted: ___ mg Dextrose Yes 12.5 gm, Memor ia 50% Syringe 09-27 25 mL, l (D50W) 17:36: Route: IVP, Drug Form: INJ, Dosing Weight 70.8, kg, PRN, PRN Blood Glucose Results, Start date: 09/27/22 12:36:00 CDT, Duration: 30 day, Stop date: 10/27/22 12:35:00 CDT, 0 glucagon Yes 1 mg, Memoria 09-27 Route: IM, l 17:36: Drug form: PDR/INJ, PRN, Dosing Weight 70.8, kg, PRN Blood Glucose Results, Start date: 09/27/22 12:36:00 CDT, Duration: 30 day, Stop date: 10/27/22 12:35:00 CDT, 0 Insulin Yes Notes: Memoria regular 09-27 (Same as: l 17:36: Humulin R) Roll in palms of hands gently; Do not shake vigorously . WASTE: F/P - Black; E - Municipal Trash Bin Stable for 31 days at room temperatur e Expires in days from ____Date Omnipaque No 50 mL, Memori a 350 mg/mL 09-27 Route: l 15:29: IVP, Drug Form: SOLN, Dosing Weight 70.8, kg, ONCALL, STAT, Start date: 09/27/22 10:29:00 CDT, Duration: 1 doses or times, Dose = 2.2ml/kg, Max dose = 100ml -- "To be infused by Radiology Staff ONLY" Lasix No Notes: Memoria 09-27 (Same as: l 12:17: Lasix) calcium No Notes: Memoria gluconate + 09-27 WASTE: F/P l Sodium 12:03: - Sink; E Tolu n Chloride 00 - 0.9% IV 80 Municipal mL Trash Bin rosuvastati Yes Notes: Ulises sasha n 7-21 Same as l 02:00: Crestor valACYclovi Yes Notes: Ulises sasha r 7-20 (Same As: l 15:02: Valtrex) senna Yes Notes: Memoria 7-20 (Same as: l 14:00: Senokot) Saline Yes Notes: Memoria Flush 0.9% 7-20 (Same as: l 14:00: BD Posiflush) MiraLax Yes Notes: Memoria 7-20 Dissolve l 14:00: in 8 oz of water or juice. (Same as: Miralax) metoprolol Yes Notes: Memor ia tartrate 7-20 (Same as: l 14:00: Lopressor) Keppra Yes Notes: Memoria 7-20 Same as l 14:00: Keppra MEDICATION WASTE Product Size: 500 mg Product Wasted: 0 mg DULoxetine Yes Notes: Memor ia 7-20 (Same as: l 14:00: Cymbalta) (Do Not Crush) amLODIPine Yes Notes: Memor ia 7-20 (Same as: l 14:00: Norvasc) gabapentin Yes Notes: Memor ia 7-20 (Same as: l 13:00: Neurontin) valGANciclo No Route: PO, Memoria vir 7-20 Q8H, l 12:28: Dosing Weight 70.8, kg, Priority: STAT, Start date: 09/26/22 7:28:00 CDT, Duration: 7 day, Stop date: 10/03/22 0:00:00 CDT, levothyroxi Yes Notes: Ulises sasha ne -20 Take 1 l 11:30: hour Eloy 00 before or 2 hours after meal; Enteral feeds may interefere with the absorption of this medication . (Same as:Levothr oid) Omnipaque No 60 mL, Memori a 350 mg/mL 09-26 Route: l 10:06: IVP, Drug Form: SOLN, Dosing Weight 70.8, kg, ONCALL, STAT, Start date: 09/26/22 5:06:00 CDT, Duration: 1 doses or times, Dose = 2.2ml/kg, Max dose = 100ml -- "To be infused by Radiology Staff ONLY" Dextrose No 12.5 gm, Memor ia 50% Syringe 09-26 25 mL, l (D50W) 09:21: Route: Robin 00 IVP, Drug Form: INJ, Dosing Weight 70.8, kg, PRN, PRN Blood Glucose Results, Start date: 09/26/22 4:21:00 CDT, Duration: 30 day, Stop date: 10/26/22 4:20:00 CDT, 0 glucagon No 1 mg, Memoria 09-26 Route: IM, l 09:21: Drug form: 00 PDR/INJ, PRN, Dosing Weight 70.8, kg, PRN Blood Glucose Results, Start date: 09/26/22 4:21:00 CDT, Duration: 30 day, Stop date: 10/26/22 4:20:00 CDT, 0 insulin No Notes: Memoria lispro -20 (Same as: l 09:21: Humalog) 00 Roll in palms of hands gently; Do not shake vigorously . WASTE: F/P - Black; E - Municipal Trash Bin Stable for 28 days at room temperatur e. Expires in days from ____Date potassium No Notes: Memori a chloride 7-20 (Same as: l :19: KCL) 10 00 mEq/100ml product recommende d for peripheral line administra tion. Infuse no faster than 10 mEq/hr if given peripheral ly. sodium No Notes: Memoria phosphate + 7-20 Infuse l Sodium 09:19: over 4 Robin Chloride 00 hour. Do 0.9% IV 250 not infuse mL phosphorou s concurrent ly in the same line as TPN or IVF that contains calcium. For double lumen central lines, phosphorou s may be infused in a separate lumen from TPN. potassium No Notes: Memori a phosphate-s 7-20 (Same as: l odium 09:19: Phos-NaK) Robin phosphate 00 Each 1.5 250 mg-280 gm pkt has mg-160 mg 250mg oral powder phosphorou for s. Mix reconstitut w/2.5oz ion water and stir. magnesium No Notes: Memori a sulfate 7-20 WASTE: F/P l 09:19: - Sink; E Robin 00 - Municipal Trash Bin calcium No Notes: Memoria gluconate 7-20 Contains: l 09:19: calcium Eloy 00 gluconate 20mg/mL NaCl 0.67% 50mL WASTE: F/P - Sink; E - Municipal Trash Bin lidocaine No Notes: Memori a 4% patch 7-20 Patch is l 09:00: applied to Robin 00 intact skin to cover painful area for up to 12 hours in a 24-hour period (12 hours on and 12 hours off). Please indicate the location of applicatio n site. Site 1: Remove old patch before applicatio n of new patch. (Same as Aspercreme Lidocaine Patch) remove Yes Notes: Memoria patch 7-20 Remove l 09:00: patch 12 Eloy 00 hours after applicatio n each day. metFORMIN Yes 500 mg = 1 Me moria 500 mg oral 7-20 tab, PO, l tablet 07:06: BID-Meals, Tracy nn 00 # 30 tab, 0 Refill(s) levothyroxi Yes 125 Memori a ne 125 mcg 7-20 microgram l (0.125 mg) 07:06: = 1 tab, Her valente oral tablet 00 PO, Daily, # 30 tab, 0 Refill(s) Metoprolol 2023-0 Yes 50 mg = 1 Me moria Tartrate 50 7-20 tab, PO, l mg oral 07:06: BID, # 60 Tracy nn tablet 00 tab, 0 Refill(s) rosuvastati 2022-0 Yes 5 mg = 1 Me moria n 5 mg oral 7-20 tab, PO, l tablet 07:06: Bedtime, # Tracy nn 00 30 tab, 0 Refill(s) gabapentin 0 Yes 300 mg = 1 M emoria 300 mg oral 7-20 cap, PO, l capsule 07:06: TID, # 90 Tracy nn 00 cap, 0 Refill(s) valACYclovi 0 Yes 1,000 mg, M emoria r 1 g oral 7-20 PO, TID, # l tablet 07:06: 21 tab, 0 Tolu n 00 Refill(s) amLODIPine 0 Yes 5 mg = 1 Mem oria 5 mg oral 7-20 tab, PO, l tablet 07:06: Daily, # Eloy 00 90 tab, 0 Refill(s) DULoxetine 0 Yes 20 mg = 1 Me moria 20 mg oral 7-20 cap, PO, l delayed 07:06: BID, # 180 Herm gilbert release 00 cap, 0 capsule Refill(s) Sodium No 1,000 mL, Memori a Chloride 7-20 Rate: 50 l 0.9% IV 07:03: ml/hr, Robin 1,000 mL 00 Infuse over: 20 hr, Route: IV, Dosing Weight 113.636 kg, Total Volume: 1,000, Start date: 09/26/22 2:03:00 CDT, Duration: 30 day, Stop date: 10/26/22 2:02:00 CDT, BSA: 2.42 m2, 0 acetaminoph Yes Notes: Do M emoria en 7-20 not exceed l 07:03: 4 gm/day. Eloy 00 (Same as: Tylenol) bisacodyl Yes Notes: Memori a 7-20 (Same As: l 07:03: Dulcolax, Eloy 00 [place]isco-Lax) ondansetron Yes Notes: Ulises sasha 7-20 (Same as: l 07:03: Zofran) Eloy 00 MEDICATION WASTE Product Size: 4 mg Product Wasted: 0 mg hydrALAZINE Yes Notes: Ulises sasha 7-20 (Same as: l 07:03: Apresoline ) Push over 5 minutes labetalol No 10 mg, 2 Ulises sasha 7-20 mL, Route: l 07:03: IVP, Drug form: INJ, Q15Min, Dosing Weight 113.636, kg, PRN Hypertensi on, Start date: 09/26/22 2:03:00 CDT, Duration: 3 doses or times, Stop date: 09/27/22 3:00:00 CDT, 0 Saline Yes Notes: Memoria Flush 0.9% 7-20 (Same as: l 07:03: BD Posiflush) Omnipaque No 110 mL, Memor ia 350 mg/mL - Route: l 06:00: IVP, Drug Form: SOLN, Dosing Weight 113.636, kg, ONCALL, STAT, Start date: 09/26/22 1:00:00 CDT, Duration: 1 doses or times, Dose = 2.2ml/kg, Max dose = 100ml -- "To be infused by Radiology Staff ONLY" Keppra No 1,000 mg, Memori a 7-20 Route: l 05:22: IVPB, ONCE, Dosing Weight 113.636, kg, Priority: STAT, Start date: 09/26/22 0:22:00 CDT, Stop date: 09/26/22 0:22:00 CDT Isolyte S No Notes: Memori a PH-7.4 7-20 (Same as: l (Bolus) IV 03:49: Isolyte S He PH7.4, Normosol-R PH 7.4, Plasma-Lyt e A ) Saline Yes Notes: Memoria Flush 0.9% 7-20 (Same as: l 03:13: BD Posiflush) metoprolol Yes 25mg Q.5D Take 25 mg U T tartrate 4-08 by mouth Health (Lopressor) 00:00: in the 25 MG 00 morning tablet and 25 mg before bedtime. levothyroxi 0 Yes 112ug QD Take 112 U T ne 3-26 mcg by [facility] (Synthroid, 00:00: mouth 1 Levoxyl) 00 (one) time 112 MCG each day. tablet HYDROcodone 0 Yes 1{tbl} Q6H Take 1 UT -acetaminop 3-01 tablet by [facility] hen ([place]) 00:00: mouth 7.5-325 MG 00 every 6 tablet (six) hours if needed. NEEDED FOR 7 DAYS rosuvastati 0 Yes 5mg 5 mg. UT n (Crestor) 2-23 Health 10 MG 00:00: tablet 00 amLODIPine Yes 5mg 5 mg. UT (Norvasc) 5 6-24 Health MG tablet 00:00: 00 Razadyne 4 Yes 4 mg = 1 Mem oria mg oral 6-09 tab, PO, l tablet 16:19: BID, # 60 Tolu n 00 tab, 3 Refill(s), Pharmacy: [facility] #[id number], 168.91, cm, 08/16/21 11:02:00 CDT, Height, 106.506, kg, 08/16/21 11:02:00 CDT, Weight DULoxetine 0 Yes See Memoria 20 mg oral 5-17 Instructio l delayed 13:37: ns, TAKE 1 Herm gilbert release 00 CAPSULE BY capsule MOUTH EVERY DAY, # 90 unknown unit, 1 Refill(s), Pharmacy: [facility] STORE [id number], 175.26, cm, 07/06/20 11:00:00 CDT, Height, 103.636, [...] 2-24 Daily, 0 l 21:28: Refill(s) Famotidine 0 Yes 20 mg = 1 Me moria 2-24 tab, PO, l 21:28: BID, # 60 tab, 0 Refill(s) acetaminoph Yes 650 mg = 2 Memoria en 325 mg 2-24 tab, PO, l oral tablet 21:28: Q6H, 0 Refill(s) DULoxetine 2020-0 Yes 20mg QD Take 1 [...] Every morning on an empty stomach. lisinopriL 202-0 Yes 20mg QD Take [facility] (PRINIVIL,[facility] 2-19 tablet (20 Yen kes ESTRIL) 20 00:00: mg total) Me dical MG tablet 00 by mouth Center daily. DULoxetine 202-0 Yes 20mg QD Take 1 [facility] (CYMBALTA) 2-19 capsule [facility] 20 MG 00:00: (20 mg Medical capsule 00 total) by Center mouth daily. levothyroxi 202-0 Yes 125ug Take [address] [facility] [facility] 2-19 tablet [facility] (SYNTHROID, 00:00: (125 mcg Me dical LEVOTHROID) 00 total) by [address] [facility] 125 MCG mouth tablet Every morning on an empty stomach. lisinopriL 2020-0 Yes 20mg QD Take 1 [facility] (PRINIVIL,Z 2-19 tablet (20 Yen kes ESTRIL) 20 00:00: mg total) Me dical MG tablet 00 by mouth Center daily. DULoxetine 202-0 Yes 20mg QD Take 1 [facility] [...] tablet 00 by mouth Center daily. senna-docus 2020-0 Yes 1{tbl} QD Take [...] tablet 00 by mouth Center daily. famotidine 0 Yes 20mg Take 1 [facility] [...] tablet 00 by mouth Center daily. famotidine 0 Yes 20mg Take 1 [facility] [...] Tablet 00 tab, 3 [Namenda] Refill(s), Pharmacy: [facility] STORE #[id number], 170.18, cm, 10/22/19 9:06:00 CDT, Height, 107.727, kg, 10/22/19 9:06:00 CDT, Weight DULoxetine Yes See Memoria 20 mg oral 9-14 Instructio l delayed 15:17: ns, TAKE 1 Herm gilbert release 00 CAPSULE BY capsule MOUTH EVERY DAY, # 90 unknown unit, 2 Refill(s), Pharmacy: [facility] STORE #[id number], 170.18, cm, 10/22/19 9:06:00 CDT, Height, 107.727, kg, 10/22/19 9:06:00 CDT, Weight Memantine Yes 5 mg = 1 Ulises sasha hydrochlori 8-14 tab, PO, l de 5 MG 14:20: BID, # 60 Tracy nn Oral Tablet 00 tab, 3 [Namenda] Refill(s), Pharmacy: [facility] #[id number], 170.18, cm, 10/22/19 9:06:00 CDT, Height, 107.727, kg, 10/22/19 9:06:00 CDT, Weight DULoxetine 2019-0 Yes = 1 cap, Mem oria 20 mg oral 3-16 PO, Daily, l delayed 16:01: # 90 cap, Tracy nn release 00 1 capsule Refill(s), Pharmacy: [facility] #[id number] rivaroxaban 2019-0 Yes 20 mg = 1 M emoria 20 MG Oral 8-14 tab, PO, l Tablet 14:43: QPM, # 30 Tolu n [Xarelto] 00 tab, 3 Refill(s) DULoxetine 2018- Yes = 1 cap, Mem oria 20 mg oral 7-24 PO, Daily, l delayed 22:16: # 90 cap, Tracy nn release 51 1 capsule Refill(s), Pharmacy: [facility] #[id number] nitroglycer 2018-[address] in [...] 0.4 MG SL 00 Center tablet donepezil 2019-0 Yes = 1 tab, Ulises sasha 10 mg oral 3-25 PO, l tablet 16:03: Bedtime, # Tracy nn 07 30 tab, Refill(s) 5, Pharmacy: [facility] #[id number] DULoxetine 2018-0 Yes = 1 cap, Mem oria 20 mg oral 3-24 PO, Daily, l delayed 21:08: # 30 Eloy release 47 unknown capsule unit, Refill(s) 5, Pharmacy: [facility] #[id number] Vital Signs Vital Name Observation Time [...] kg HEIGHT 2020-04-19 21:00:00 175.3 cm Systolic blood 2022-10-31 16:43:00 127 mm[Hg] [facility] Diastolic blood 2022-10-31 16:43:00 75 mm[Hg] [facility] Heart rate 2022-10-31 16:43:00 80 /min [facility] Body temperature 2022-10-31 16:43:00 36.17 [facility] Body height 2022-10-31 16:43:00 172.7 cm [facility] Body weight 2022-10-31 16:43:00 106.595 kg [facility] BMI 2022-10-31 16:43:00 35.73 kg/m2 [facility] WEIGHT 2020-04-28 05:48:00 98.748 kg WEIGHT 2020-04-27 05:32:00 101.197 kg WEIGHT 2020-04-26 05:00:00 101.322 kg WEIGHT 2020-04-25 06:42:00 102.144 kg WEIGHT 2020-04-24 05:12:00 103.193 kg WEIGHT 2020-04-23 05:09:00 103.619 kg WEIGHT 2020-04-22 06:00:00 104.3 kg WEIGHT 2020-04-21 15:50:00 105.235 kg HEIGHT 2020-04-21 15:50:00 175.3 cm WEIGHT 2020-04-19 21:00:00 102.6 kg HEIGHT 2020-04-19 21:00:00 175.3 cm Heart Rate 2022-10-02 17:09:00 [facility] Temperature Oral (F) 2022-10-02 17:07:32 97.8 F [facility] Robin Systolic (mm Hg) 2022-10-02 17:07:16 Ulises rial Robin Diastolic (mm Hg) 2022-10-02 17:07:16 Mem orial Eloy Temperature Oral (F) 2022-10-02 08:40:12 98.4 F [facility] Robin Heart Rate 2022-09-30 09:01:51 [facility] [place] Respitory Rate 2022-09-30 09:01:51 Memori al [place] Systolic (mm Hg) 2022-09-30 09:01:18 Ulises rial Eloy Diastolic (mm Hg) 2022-09-30 09:01:18 Mem orial Robin Heart Rate 2022-09-30 09:01:18 [facility] [place] Heart Rate 2022-09-30 04:31:25 [facility] [place] Respitory Rate 2022-09-30 04:31:25 Memori al [place] Systolic (mm Hg) 2022-09-30 04:31:10 Ulises rial Eloy Diastolic (mm Hg) 2022-09-30 04:31:10 Mem orial Eloy Temperature Oral (F) 2022-09-30 04:31:00 97.3 F [facility] Robin Respitory Rate 2022-09-30 01:35:00 Memori al Robin Temperature Oral (F) 2022-09-30 00:27:41 97.5 F [facility] Robin Systolic (mm Hg) 2022-09-30 00:27:31 Ulises rial Eloy Diastolic (mm Hg) 2022-09-30 00:27:31 Mem orial Eloy Temperature Oral (F) 2022-09-29 21:23:42 97.5 F [facility] Robin Height 2022-09-26 08:40:00 6 [ft_i] [facility] Robin Weight 2022-09-26 08:40:00 [facility] Robin BMI Calculated 2022-09-26 08:40:00 Memori al [place] Height 2022-09-26 02:55:00 182.88 cm [facility] [place] BMI Calculated 2022-09-26 02:55:00 Memori al [place] Weight 2022-09-26 02:55:00 [facility] [place] Systolic (mm Hg) 2021-08-16 15:30:00 Ulises rial Robin Diastolic (mm Hg) 2021-08-16 15:30:00 Mem orial Eloy Heart Rate 2021-08-16 15:30:00 [facility] Robin Respitory Rate 2021-08-16 15:30:00 Memori al Robin Height 2021-08-16 15:30:00 168.91 cm [facility] Robin Weight 2021-08-16 15:30:00 [facility] [place] BMI Calculated 2021-08-16 15:30:00 Memori al [place] Systolic (mm Hg) 2021-02-15 16:34:00 Ulises rial Eloy Diastolic (mm Hg) 2021-02-15 16:34:00 Mem orial El[place] Heart Rate 2021-02-15 16:34:00 [facility] [place] Respitory Rate 2021-02-15 16:34:00 Memori al [place] Height 2021-02-15 16:34:00 170.18 cm [facility] Robin Weight 2021-02-15 16:34:00 [facility] [place] BMI Calculated 2021-02-15 16:34:00 Memori al [place] Systolic (mm Hg) 2020-10-19 15:38:00 Ulises rial Eloy Diastolic (mm Hg) 2020-10-19 15:38:00 Mem orial Robin Heart Rate 2020-10-19 15:38:00 [facility] [place] Respitory Rate 2020-10-19 15:38:00 Memori al Robin Height 2020-10-19 15:38:00 167.64 cm [facility] [place] Weight 2020-10-19 15:38:00 [facility] [place] BMI Calculated 2020-10-19 15:38:00 Memori al [place] Systolic (mm Hg) 2020-08-17 15:49:00 Ulises rial Robin Diastolic (mm Hg) 2020-08-17 15:49:00 Mem orial Robin Heart Rate 2020-08-17 15:49:00 [facility] Robin Respitory Rate 2020-08-17 15:49:00 Memori al [place] Height 2020-08-17 15:49:00 175.26 cm [facility] Robin Weight 2020-08-17 15:49:00 [facility] [place] BMI Calculated 2020-08-17 15:49:00 Memori al [place] Systolic (mm Hg) 2020-07-06 16:00:00 Ulises rial Robin Diastolic (mm Hg) 2020-07-06 16:00:00 Mem orial El[place] Heart Rate 2020-07-06 16:00:00 [facility] [place] Respitory Rate 2020-07-06 16:00:00 Memori al Robin Height 2020-07-06 16:00:00 175.26 cm [facility] [place] Weight 2020-07-06 16:00:00 [facility] Robin BMI Calculated 2020-07-06 16:00:00 Memori al Robin Systolic (mm Hg) 2020-06-14 14:02:00 Ulises rial Robin Diastolic (mm Hg) 2020-06-14 14:02:00 Mem orial Eloy Heart Rate 2020-06-14 14:02:00 [facility] Robin Respitory Rate 2020-06-14 14:02:00 Memori al Robin Height 2020-06-14 14:02:00 175.26 cm [facility] [place] Weight 2020-06-14 14:02:00 [facility] [place] BMI Calculated 2020-06-14 14:02:00 Memori al Robin Systolic (mm Hg) 2020-05-03 20:50:00 Ulises rial Eloy Diastolic (mm Hg) 2020-05-03 20:50:00 Mem orial Eloy Heart Rate 2020-05-03 20:50:00 [facility] [place] Respitory Rate 2020-05-03 20:50:00 [facility] Height 2020-05-03 20:50:00 175.26 cm [facility] Weight 2020-05-03 20:50:00 [facility] BMI Calculated 2020-05-03 20:50:00 [facility] Systolic (mm Hg) 2020-01-14 16:41:00 [facility] Diastolic (mm Hg) 2020-01-14 16:41:00 [facility] Heart Rate 2020-01-14 16:41:00 [facility] Respitory Rate 2020-01-14 16:41:00 [facility] Height 2020-01-14 16:41:00 167.64 cm [facility] Weight 2020-01-14 16:41:00 [facility] BMI Calculated 2020-01-14 16:41:00 [facility] Systolic (mm Hg) 2019-10-22 14:06:00 [facility] Diastolic (mm Hg) 2019-10-22 14:06:00 [facility] Heart Rate 2019-10-22 14:06:00 [facility] Respitory Rate 2019-10-22 14:06:00 [facility] Height 2019-10-22 14:06:00 170.18 cm [facility] Weight 2019-10-22 14:06:00 [facility] BMI Calculated 2019-10-22 14:06:00 [facility] Systolic (mm Hg) 2018-10-21 14:43:00 Ulises rial Eloy Diastolic (mm Hg) 2018-10-21 14:43:00 [facility] Systolic (mm Hg) 2018-10-21 14:18:00 Ulises rial Robin Diastolic (mm Hg) 2018-10-21 14:18:00 [facility] Heart Rate 2018-10-21 14:18:00 [facility] Respitory Rate 2018-10-21 14:18:00 [facility] Height 2018-10-21 14:18:00 170.18 cm [facility] Weight 2018-10-21 14:18:00 [facility] BMI Calculated 2018-10-21 14:18:00 [facility] Procedures Procedure Date / Time Performed Performing Clinician [facility] e Aortic valve replacement Memoria l Eloy and plication of ascending aorta Plan of Care Planned Activity Planned Date Details Comments Source Future Scheduled 2023-01-02 COVID-19 VACCINE (#[facility]:58:10 [code = COVID-19 VACCINE (#1)] Future Scheduled 2023-01-02 SHINGLES VACCINES (1 [facility] Test 21:58:10 of 2) [code = SHINGLES VACCINES (1 of 2)] Future Scheduled 2023-01-02 65+ [facility]AL [facility] 21:58:10 VACCINE (1 - PCV) [code = 65+ PNEUMOCOCCAL VACCINE (1 - PCV)] Future Scheduled 2023-01-02 INFLUENZA VACCINE (#[facility]) [facility] Test 21:58:10 [code = INFLUENZA VACCINE (#1)] Future Scheduled 2022-11-11 COVID-19 VACCINE (#1) [facility] Test 14:00:43 [code = COVID-19 VACCINE (#1)] Future Scheduled 2022-11-11 SHINGLES VACCINES (1 [facility] Test 14:00:43 of 2) [code = SHINGLES VACCINES (1 of 2)] Future Scheduled 2022-11-11 65+ [facility] Test 14:00:43 VACCINE (1 - PCV) [code = 65+ PNEUMOCOCCAL VACCINE (1 - PCV)] Future Scheduled 2022-11-11 INFLUENZA VACCINE (#1) [facility] Test 14:00:43 [code = INFLUENZA VACCINE (#1)] Future Scheduled 2022-11-08 Influenza Vaccine (#1) [...] Future Scheduled 2022-08-23 SHINGLES VACCINES (1 [facility] Test 08:54:01 of 2) [code = SHINGLES VACCINES (1 of 2)] Future Scheduled 2022-08-23 65+ [facility] Test 08:54:01 VACCINE (1 - PCV) [code = 65+ PNEUMOCOCCAL VACCINE (1 - PCV)] Future Scheduled 2022-08-23 [facility]ACCINE [facility] Test 08:54:01 [code = INFLUENZA VACCINE] Future Scheduled 2022-08-23 [facility] 08:54:01 [code = COVID-19 VACCINE (#1)] Future Scheduled 2022-08-23 [facility]INGLES VACCINES (1 [facility] 08:54:01 of 2) [code = SHINGLES VACCINES (1 of 2)] Future Scheduled 2022-08-23 65+ [facility] Test 08:54:01 VACCINE (1 - PCV) [code = 65+ PNEUMOCOCCAL VACCINE (1 - PCV)] Future Scheduled 2022-08-23 [facility]ACCINE [facility] Test 08:54:01 [code = INFLUENZA VACCINE] Future Scheduled 2022-08-23 COVID-19 VACCINE (#1) [facility] Test 08:54:01 [code = COVID-19 VACCINE (#1)] Future Scheduled 2022-03-[address] [...] SCREENING] Future Scheduled 2022-02-22 COVID[facility]19 [facility]INE (#[facility] 11:10:45 [code = COVID-19 VACCINE (#1)] Future Scheduled 2022-02-22 SHINGLES VACCINES (1 [facility] 11:10:45 of 2) [code = [...] 00:00:00 [facility] (procedure[facility] [code = 53323602] Future Scheduled 2020-10-[address] [facility] (procedure[facility] [code = 08944572] Future Scheduled 2020-10-[address] [facility] (procedure) [code = 62622488] Future Scheduled 2020-10-[address] [facility] (procedure) [code = 36780418] Future Scheduled 2020-10-[address] [facility] (procedure) [code = 49990143] Future Scheduled 2019-03-[address] [...] 00:00:00 examination Medical Center (regime/therapy) [code = 848819075] Future Scheduled 1950 Urine screening for [facility] Test 00:00:00 protein (procedure) Medical Center [code = 248315284] Future Scheduled 1950 DIABETIC EYE EXAM [facility] Test 00:00:00 [code = DIABETIC EYE Medical Center EXAM] Future Scheduled [address] [facility] 00:[facility]:00 examination Medical Center (regime/therapy) [code = 566193882] Future Scheduled 1950 Urine screening for [facility] Test 00:00:00 protein (procedure) Medical Center [code = 236783825] Future Scheduled 1950 DIABETIC EYE EXAM [facility] Test 00:00:00 [code = DIABETIC EYE Medical Center EXAM] Future Scheduled [address] [facility] Test 00:00:00 examination Medical Center (regime/therapy) [code = 645555921] Future Scheduled 1950 Urine screening for [facility] Test 00:00:00 protein (procedure) Medical Center [code = 418582873] Future Scheduled 1950 DIABETIC EYE EXAM [facility] Test 00:00:00 [code = DIABETIC EYE Medical Center EXAM] Future Scheduled [address] [facility] Test 00:00:00 examination Medical Center (regime/therapy) [code = 425119834] Future Scheduled 1950 Urine screening for [facility] Test 00:00:00 protein (procedure) Medical Center [code = 661147316] Future Scheduled 1950 DIABETIC EYE EXAM [facility] Test 00:00:00 [code = DIABETIC EYE Medical Center EXAM] Future Scheduled [address] [facility] Test 00:00:00 examination Medical Center (regime/therapy) [code = 881172015] Future Scheduled 1950 Urine screening for [facility] Test 00:00:00 protein (procedure) Medical Center [code = 022517685] Future Scheduled 1946 PNEUMOCOCCAL 65+ YRS [facility] [...] Date/Time Type Type Clinicians Facility Department ID 2022-10-09 Outpatient [facility] [id number] [place] 11:14:27 [id number] [facility] 2022-09-26 Outpatient [facility] [id number] [place] 08:39:04 [id number] [facility] 2022-08-19 Outpatient Karen, [facility] [id number] Common 10:58:03 Kevin [id number] [facility] 2020-04-21 Inpatient EL PERLITA [facility] PM\\T\\R [id number] SLE 15:40:00 UVIEOGHENE 2020-04-19 Inpatient ER JAYCEE [facility] General Med [id number] SLE 18:35:00 ANNISE 2022-10-31 2022-10-31 Office LEEANN ZAMBRANO [id number] [place] 12:00:00 12:00:00 Visit OCTAVIANO CAMILO [id number] [facility] [id number] 2022-09-26 2022-10-02 Inpatient IE [facility] [id number] Memoria 02:55:00 19:00:00 Eloy 00 [facility] 2022-09-25 2022-10-02 Outpatient Jason [facility] [id number] 21:55:00 14:00:00 Ritsania 00 2022-09-25 2022-09-25 Outpatient Loyd [facility] [id number] 21:55:00 21:55:00 Huimaurbano 00 Asim 2021-11-16 2021-11-16 Ambulatory nullFlavo MNA [id number] Memoria 15:30:00 15:30:00 Pre-Reg r Neurology 17 l Abhinav Robin 2021-11-16 2021-11-16 Outpatient MHIE IE [id number] Memoria 10:30:00 10:30:00 17 christel Robin 2021-11-16 2021-11-16 Outpatient JACKI WorleySCHRAMOS MISCHER [id number] 10:30:00 10:30:00 Jaycob 17 Charlie 2021-08-16 2021-08-17 Outpatient nullFlavo MNA [id number] Memoria 15:30:00 04:59:59 r Neurology 16 l [place] Robin 2021-08-16 2021-08-16 Outpatient JACKI WorleySCHRAMOS MISCHER [id number] 10:30:00 23:59:59 Jaycob 16 Charlie 2021-08-16 2021-08-16 Outpatient MHIE IE [id number] Memoria 10:30:00 10:30:00 16 christel Robin 2021-02-15 2021-02-16 Outpatient nullFlavo MNA [id number] Memoria 16:30:00 05:59:59 r Neurology 15 l Abhinav Eloy 2021-02-15 2021-02-15 Outpatient JACKI WorleySCHER MISCHER [id number] 10:30:00 23:59:59 Jaycob 15 Charlie 2021-02-15 2021-02-15 Outpatient MHIE IE [id number] Memoria 10:30:00 10:30:00 15 christel Robin 2020-10-19 2020-10-20 Outpatient nullFlavo MNA [id number] Memoria 15:30:00 04:59:59 r Neurology 14 l Abhinav Kelly 2020-10-19 2020-10-19 Outpatient JACKI WorleySCHER MHMISCHER [id number] 10:30:00 23:59:59 Jaycob 14 Charlie 2020-10-19 2020-10-19 Outpatient MHIE MHIE [id number] Memoria 10:30:00 10:30:00 14 christel Kelly 2020-08-17 2020-08-18 Outpatient nullFlavo MNA [id number] Memoria 15:45:00 04:59:59 r Neurology 13 l Abhinav De Oliveiraann 2020-08-17 2020-08-17 Outpatient EMERY WorleyMISCHER MHMISCHER [id number] 10:45:00 23:59:59 Jaycob 13 Charlie 2020-08-17 2020-08-17 Outpatient MHIE MHIE [id number] Memoria 10:45:00 10:45:00 13 christel Robin 2020-07-13 2020-07-13 Ambulatory nullFlavo MNA [id number] Memoria 15:30:00 15:30:00 Pre-Reg r Neurology 08 l [place] Robin 2020-07-13 2020-07-13 Outpatient MHIE MHIE [id number] Memoria 10:30:00 10:30:00 08 christel Kelly 2020-07-13 2020-07-13 [id number] 10:30:00 10:30:00 Jaycob 08 Charlie 2020-07-06 2020-07-07 Outpatient nullFlavo MNA [id number] Memoria 15:30:00 04:59:59 r Neurology 12 l Abhinav Robin 2020-07-06 2020-07-06 Outpatient JACKI WorleySCHER MHMISCHER [id number] 10:30:00 23:59:59 Jaycob 12 Charlie 2020-07-06 2020-07-06 Outpatient MHIE MHIE [id number] Memoria 10:30:00 10:30:00 12 christel Robin 2020-06-15 2020-06-16 Outpatient nullFlavo MNA [id number] Memoria 18:00:00 04:59:59 r Neurology 11 l Abhinav Kelly 2020-06-15 2020-06-15 Outpatient EMERY WorleyMISCHER MHMISCHER [id number] 13:00:00 23:59:59 Jaycob 11 Charlie 2020-06-15 2020-06-15 Outpatient MHIE MHIE [id number] Memoria 13:00:00 13:00:00 11 christel Eloy 2020-06-14 2020-06-15 Outpatient nullFlavo MNA [id number] Memoria 14:00:00 04:59:59 r Neurology 10 l Abhinav Robin 2020-06-14 2020-06-14 Outpatient EMERY WorelyMISCHER MHMISCHER [id number] 09:00:00 23:59:59 Jaycob 10 Charlie 2020-06-14 2020-06-14 Outpatient MHIE MHIE [id number] Memoria 09:00:00 09:00:00 10 christel Robin 2020-05-12 2020-05-12 Outpatient HUGO BLAS, [facility] SLE [id number] SLEH 00:00:00 00:00:00 SHANE 2020-05-03 2020-05-04 Outpatient nullFlavo MNA [id number] Memoria 20:30:00 05:59:59 r Neurology 09 christel La Robin 2020-05-03 2020-05-03 Outpatient EMERY WorleyMISCHER MHMISCHER [id number] 14:30:00 23:59:59 Jaycob 09 Charlie 2020-05-03 2020-05-03 Outpatient MHIE MHIE [id number] Memoria 14:30:00 14:30:00 09 christel Robin 2020-01-14 2020-01-15 Outpatient nullFlavo MNA [id number] Memoria 16:30:00 05:59:59 r Neurology 07 christel [place] Robin 2020-01-14 2020-01-14 Outpatient EMERY WorleyMISCHER MHMISCHER [id number] 10:30:00 23:59:59 Jaycob 07 Charlie 2020-01-14 2020-01-14 Outpatient MHIE MHIE [id number] Memoria 10:30:00 10:30:00 07 christel Robin 2019-10-22 2019-10-23 Outpatient nullFlavo MNA [id number] Memoria 14:00:00 04:59:59 r Neurology 06 christel La Robin 2019-10-22 2019-10-22 Outpatient EMERY WorleyMISCHER MISCHER [id number] 09:00:00 23:59:59 Jaycob 06 Charlie 2019-10-22 2019-10-22 Ambulatory nullFlavo MNA [id number] Memoria 14:00:00 14:00:00 Pre-Reg r Neurology 05 l [place] Robin 2019-10-22 2019-10-22 Outpatient MHIE MHIE [id number] Memoria 09:00:00 09:00:00 05 christel Robin 2019-10-22 2019-10-22 Outpatient MHIE MHIE [id number] Memoria 09:00:00 09:00:00 06 christel Robin 2019-10-22 2019-10-22 Outpatient JACKI WorleySCHER MISCHER [id number] 09:00:00 09:00:00 Jaycob 05 Charlie 2018-10-21 2018-10-22 Outpatient nullFlavo MNA [id number] Memoria 14:00:00 04:59:59 r Neurology 04 christel [place] Robin 2018-10-21 2018-10-21 Outpatient JACKI WorleySCHRAMOS MISCHER [id number] 09:00:00 23:59:59 Jaycob 04 Charlie 2018-10-21 2018-10-21 Outpatient MHIE MHIE [id number] Memoria 09:00:00 09:00:00 04 christel Kelly 2018-08-12 2018-08-12 Outpatient [facility] [id number] [facility] 00:00:00 00:00:00 SHINE 2018-07-29 2018-07-29 Ambulatory nullFlavo MNA [id number] Memoria 14:15:00 14:15:00 Pre-Reg r Neurology 03 christel Abhinav Kelly 2018-07-29 2018-07-29 Outpatient MHIE MHIE [id number] Memoria 09:15:00 09:15:00 03 christel Kelly 2018-07-29 2018-07-29 Outpatient EMERY WorleyMISCHER MHMISCHER [id number] 09:15:00 09:15:00 Jaycob 03 Charlie 2018-02-04 2018-02-06 Phone nullFlavo MNA [id number] Memoria 17:54:00 05:59:59 Message r Neurology 01 christel Kelly 2018-02-04 2018-02-05 Outpatient [facility] [id number] 11:54:00 23:59:59 2017-10-29 2017-10-29 Outpatient KEVIN BROWN [id number] Memoria 09:15:00 09:15:00 02 christel Kelly 2017-08-21 2017-08-21 Outpatient KEVIN BROWN [id number] Memoria 09:00:00 09:00:00 christel Eloy 2017-04-23 2017-04-23 Outpatient KEVIN NICKOLAS [id number] Memoria 10:00:00 10:00:00 00 christel Robin Results Test Description Test Time Test Comments Results Result Comments Source CHEMISTRY 2022-10-02 08:16:00 Test Item Value Reference Range Interpretation Comme nts Glucose Lvl (test code = Glucose Lvl) 130 70-99 [facility]QU[facility]TN2878-81-45 08:16:00 Test Item Value Reference Range Interpretation Comments BUN (test code = BUN) 09-28 [facility]VsmxbbbSNCOBWFDZ0599-93-11 08:16:00 Test Item Value Reference Range Interpretation Comments Creatinine Lvl (test code = Creatinine 1.07 0.50-1.40 Lvl) [facility]CzwpudtQPKOQAZFB7526-80-10 08:16:00 Test Item Value Reference Range Interpretation Comments Sodium Lvl (test code = Sodium Lvl) 137 135-145 [facility]PsxyzzmLBRTXPKJB9236-62-16 08:16:00 Test Item Value Reference Range Interpretation Comments Potassium Lvl (test code = Potassium 3.2 3.5-5.1 Lvl) [facility]YxjwobcDZINVQXNR9324-62-37 08:16:00 Test Item Value Reference Range Interpretation Comments Chloride Lvl (test code = Chloride Lvl) 103 95-109 [facility]DhznzedTRNVPYLKZ7175-10-37 08:16:00 Test Item Value Reference Range Interpretation Comments CO2 (test code = CO2) 26 24-32 [facility]EctrpkeVSDKJXEON8984-10-61 08:16:00 Test Item Value Reference Range Interpretation Comments Calcium Lvl (test code = Calcium Lvl) 8.7 8.5-10.5 [facility] TexasBqfufteUDAHHVSIZ2151-75-69 08:16:00 Test Item Value Reference Range Interpretation Comments AGAP (test code = AGAP) 11.2 10.0-20.0 [place] 707883-07-26 08:16:00 Test Item Value Reference Range Interpretation Comments eGFR (test code = eGFR) 69 [facility]WPBE2876[facility]89-13 08:16:00 Test Item Value Reference Range Interpretation Comments WBC (test code = WBC) 6.9 3.7-10.4 [facility] HospitalVwcljabHFJUGREYHJ2325-29-86 08:16:00 Test Item Value Reference Range Interpretation Comments RBC (test code = RBC) 4.19 4.70-6.10 [facility] HospitalLjavazxQWXAXLHYEM4183-30-20 08:16:00 Test Item Value Reference Range Interpretation Comments Hgb (test code = Hgb) 13.0 14.0-18.0 [place] 702863-07-26 08:16:00 Test Item Value Reference Range Interpretation Comments Hct (test code = Hct) 38.2 42.0-54.0 [facility] HospitalFdhwrpiVGMTYREDBR5949-09-29 08:16:00 Test Item Value Reference Range Interpretation Comments MCV (test code = MCV) 91.0 80.0-94.0 [facility] HospitalZgdmbslFSFIPUQZRR3022-16-88 08:16:00 Test Item Value Reference Range Interpretation Comments MCH (test code = MCH) 31.0 pg 27.0-31.0 [facility] HospitalWwmlufdBXTBUWFZPA9844-20-72 08:16:00 Test Item Value Reference Range Interpretation Comments MCHC (test code = MCHC) 34.0 32.0-36.0 [facility] HospitalRwkosptBQHMLEYTXQ5861-28-28 08:16:00 Test Item Value Reference Range Interpretation Comments RDW (test code = RDW) 14.5 11.5-14.5 [facility] HospitalYqnmspgCCHEZNBFQE3193-45-84 08:16:00 Test Item Value Reference Range Interpretation Comments Platelet (test code = Platelet) 215 133-450 [facility] HospitalQxpxngeGOEIGRPEAL0834-43-23 08:16:00 Test Item Value Reference Range Interpretation Comments MPV (test code = MPV) 8.8 7.4-10.4 [place] [address]-07-26 08:16:00 Test Item Value Reference Range Interpretation Comments Segs (test code = Segs) 62.3 45.0-75.0 [place] 702863-07-26 08:16:00 Test Item Value Reference Range Interpretation Comments Lymphocytes (test code = Lymphocytes) 21.1 20.0-40.0 [facility] HospitalUuaodtbEJMMDBQLKF4785-09-91 08:16:00 Test Item Value Reference Range Interpretation Comments Monocytes (test code = Monocytes) 8.0 2.0-12.0 [facility] HospitalTtuuszoYVYCCRIUEZ8349-38-97 08:16:00 Test Item Value Reference Range Interpretation Comments Eosinophils (test code = Eosinophils) 7.5 <=4.0 [place] 702863-07-26 08:16:00 Test Item Value Reference Range Interpretation Comments Basophils (test code = Basophils) 1.1 <=1.0 [facility] HospitalCxtxhrpFWZJQELAYS9659-32-20 08:16:00 Test Item Value Reference Range Interpretation Comments Neutrophils # (test code = Neutrophils 4.3 1.5-8.1 #) [facility] HospitalLuzofwiZYDLIYREWS0724-61-58 08:16:00 Test Item Value Reference Range Interpretation Comments Lymphocytes # (test code = Lymphocytes 1.4 1.0-5.5 #) [facility] HospitalFtalsvaRHNOFYCUWL2119-01-96 08:16:00 Test Item Value Reference Range Interpretation Comments Monocytes # (test code = Monocytes #) 0.6 <=0.8 [facility] HospitalMgictqrAZBUJMQMSH9270-54-90 08:16:00 Test Item Value Reference Range Interpretation Comments Eosinophils # (test code = Eosinophils 0.5 <=0.5 #) [facility] HospitalSisoiloTIQLORVQYS2684-03-19 08:16:00 Test Item Value Reference Range Interpretation Comments Basophils # (test code = Basophils #) 0.1 <=0.2 [facility]2023-07-24 21:15:00 Test Item Value Reference Range Interpretation Comments Glucose POC (test code = Glucose POC) 165 70-99 [place] 39235023-07-24 12:35:04 Test Item Value Reference Range Interpretation Comments RADRPT (test code = EXAM: XR CHEST 1 VIEWDATE: RADRPT) 09/29/2022 15:32INDICATION: hypoxia - pnaCOMPARISON: Chest x-ray dated September 28, 2022TECHNIQUE: AP chest.IMPRESSION: Lines/tubes: Sternotomy wires are well aligned and intact.Heart and mediastinum: The heart is normal in size. Mediastinal silhouette is enlarged likely due to tortuous ectatic thoracic aorta. Vascular calcifications in the aortic arch.Lungs and pleura: Bilateral hazy airspace opacities may represent aspiration or atelectasis or infection. No definite pleural effusion. No perceptible pneumothorax.Osseous structures and soft tissues: No acute osseous abnormality. [facility]2023-07-24 08:35:00 Test Item Value Reference Range Interpretation Comments Glucose Lvl (test code = Glucose Lvl) 111 70-99 [place] 383223-07-24 08:35:00 Test Item Value Reference Range Interpretation Comments BUN (test code = BUN) 18 7-22 [place] 383223-07-24 08:35:00 Test Item Value Reference Range Interpretation Comments Creatinine Lvl (test code = Creatinine 1.01 0.50-1.40 Lvl) [place] 383223-07-24 08:35:00 Test Item Value Reference Range Interpretation Comments Sodium Lvl (test code = Sodium Lvl) 138 135-145 [place] 383223-07-24 08:35:00 Test Item Value Reference Range Interpretation Comments Potassium Lvl (test code = Potassium 3.6 3.5-5.1 Lvl) [place] 383223-07-24 08:35:00 Test Item Value Reference Range Interpretation Comments Chloride Lvl (test code = Chloride Lvl) 105 95-109 [place] 383223-07-24 08:35:00 Test Item Value Reference Range Interpretation Comments CO2 (test code = CO2) 26 24-32 [place] 383223-07-24 08:35:00 Test Item Value Reference Range Interpretation Comments Calcium Lvl (test code = Calcium Lvl) 8.5 8.5-10.5 [place] 383223-07-24 08:35:00 Test Item Value Reference Range Interpretation Comments AGAP (test code = AGAP) 10.6 10.0-20.0 [place] 383223-07-24 08:35:00 Test Item Value Reference Range Interpretation Comments eGFR (test code = eGFR) 74 [place] 383223-07-24 08:35:00 Test Item Value Reference Range Interpretation Comments Magnesium Lvl (test code = Magnesium 2.4 1.8-2.4 Lvl) [place] 383223-07-24 08:35:00 Test Item Value Reference Range Interpretation Comments Phosphorus (test code = Phosphorus) 3.9 2.5-4.5 [place] [address]-07-24 08:35:00 Test Item Value Reference Range Interpretation Comments Magnesium Lvl (test code = Magnesium 2.4 1.8-2.4 Lvl) [place] [address]-07-24 08:35:00 Test Item Value Reference Range Interpretation Comments Ca Ion WB (test code = Ca Ion WB) 1.08 1.05-1.25 [place] [address]-07-24 08:35:00 Test Item Value Reference Range Interpretation Comments Ca Ion at pH 7.4 WB (test code = Ca Ion 1.09 1.05-1.25 at pH 7.4 WB) [place] 707883-07-24 08:35:00 Test Item Value Reference Range Interpretation Comments Phosphorus (test code = Phosphorus) 3.9 2.5-4.5 [place] [address]-07-24 08:35:00 Test Item Value Reference Range Interpretation Comments WBC (test code = WBC) 5.9 3.7-10.4 [place] [address]-07-24 08:35:00 Test Item Value Reference Range Interpretation Comments RBC (test code = RBC) 4.19 4.70-6.10 [place] [address]-07-24 08:35:00 Test Item Value Reference Range Interpretation Comments Hgb (test code = Hgb) 13.0 14.0-18.0 [place] [address]-07-24 08:35:00 Test Item Value Reference Range Interpretation Comments Hct (test code = Hct) 38.5 42.0-54.0 [place] [address]-07-24 08:35:00 Test Item Value Reference Range Interpretation Comments MCV (test code = MCV) 91.9 80.0-94.0 [place] [address]-07-24 08:35:00 Test Item Value Reference Range Interpretation Comments MCH (test code = MCH) 31.0 pg 27.0-31.0 [place] 702863-07-24 08:35:00 Test Item Value Reference Range Interpretation Comments MCHC (test code = MCHC) 33.7 32.0-36.0 [place] 702863-07-24 08:35:00 Test Item Value Reference Range Interpretation Comments RDW (test code = RDW) 13.8 11.5-14.5 [place] 702863-07-24 08:35:00 Test Item Value Reference Range Interpretation Comments Platelet (test code = Platelet) 188 133-450 [facility] HospitalSluaeshKIRDVVSDBE6837-43-81 08:35:00 Test Item Value Reference Range Interpretation Comments MPV (test code = MPV) 9.2 7.4-10.4 [place] 702863-07-24 08:35:00 Test Item Value Reference Range Interpretation Comments Segs (test code = Segs) 61.7 45.0-75.0 [place] 702863-07-24 08:35:00 Test Item Value Reference Range Interpretation Comments Lymphocytes (test code = Lymphocytes) 23.9 20.0-40.0 [place] 702863-07-24 08:35:00 Test Item Value Reference Range Interpretation Comments Monocytes (test code = Monocytes) 6.6 2.0-12.0 [facility] HospitalZupspuiIIHIMSYUUC1400-50-92 08:35:00 Test Item Value Reference Range Interpretation Comments Eosinophils (test code = Eosinophils) 6.4 <=4.0 [place] 702863-07-24 08:35:00 Test Item Value Reference Range Interpretation Comments Basophils (test code = Basophils) 1.4 <=1.0 [place] 702863-07-24 08:35:00 Test Item Value Reference Range Interpretation Comments Neutrophils # (test code = Neutrophils 3.7 1.5-8.1 #) [place] 702863-07-24 08:35:00 Test Item Value Reference Range Interpretation Comments Lymphocytes # (test code = Lymphocytes 1.4 1.0-5.5 #) [place] 702863-07-24 08:35:00 Test Item Value Reference Range Interpretation Comments Monocytes # (test code = Monocytes #) 0.4 <=0.8 [place] [address]-07-24 08:35:00 Test Item Value Reference Range Interpretation Comments Eosinophils # (test code = Eosinophils 0.4 <=0.5 #) [facility]OLY3782-75-70 08:35:00 Test Item Value Reference Range Interpretation Comments Basophils # (test code = Basophils #) 0.1 <=0.2 [facility]2023-07-24 08:35:00 Test Item Value Reference Range Interpretation Comments Ca Ion WB (test code = Ca Ion WB) 1.08 1.05-1.25 [facility]2023-07-24 08:35:00 Test Item Value Reference Range Interpretation Comments Ca Ion at pH 7.4 WB (test code = Ca Ion 1.09 1.05-1.25 at pH 7.4 WB) [facility]2023-07-23 06:39:00 Test Item Value Reference Range Interpretation Comments Glucose Lvl (test code = Glucose Lvl) 110 70-99 [place] 383223-07-23 06:39:00 Test Item Value Reference Range Interpretation Comments BUN (test code = BUN) 26 09-22 [place] 383223-07-23 06:39:00 Test Item Value Reference Range Interpretation Comments Creatinine Lvl (test code = Creatinine 1.05 0.50-1.40 Lvl) [facility]2023-07-23 06:39:00 Test Item Value Reference Range Interpretation Comments Sodium Lvl (test code = Sodium Lvl) 136 135-145 [place] 383223-07-23 06:39:00 Test Item Value Reference Range Interpretation Comments Potassium Lvl (test code = Potassium 3.6 3.5-5.1 Lvl) [place] 383223-07-23 06:39:00 Test Item Value Reference Range Interpretation Comments Chloride Lvl (test code = Chloride Lvl) 100 95-109 [place] 383223-07-23 06:39:00 Test Item Value Reference Range Interpretation Comments CO2 (test code = CO2) 27 24-32 [place] 383223-07-23 06:39:00 Test Item Value Reference Range Interpretation Comments Calcium Lvl (test code = Calcium Lvl) 8.6 8.5-10.5 [place] 383223-07-23 06:39:00 Test Item Value Reference Range Interpretation Comments AGAP (test code = AGAP) 12.6 10.0-20.0 [facility]2023-07-23 06:39:00 Test Item Value Reference Range Interpretation Comments eGFR (test code = eGFR) 71 [facility]td[facility]TXNBHG2001-46-02 06:39:00 Test Item Value Reference Range Interpretation Comments Segs (test code = Segs) 63.9 45.0-75.0 [facility] HospitalTicglxsHMAPTIJEUT1850-20-38 06:39:00 Test Item Value Reference Range Interpretation Comments Lymphocytes (test code = Lymphocytes) 19.8 20.0-40.0 [facility] HospitalZroxmqsWKDUQFJCDN9729-96-36 06:39:00 Test Item Value Reference Range Interpretation Comments Monocytes (test code = Monocytes) 7.4 2.0-12.0 [facility] HospitalHdcpehaGMEURFXZJI3894-25-35 06:39:00 Test Item Value Reference Range Interpretation Comments Eosinophils (test code = Eosinophils) 7.8 <=4.0 [facility] HospitalUyinwdiHPEKQYVWCX3786-98-48 06:39:00 Test Item Value Reference Range Interpretation Comments Basophils (test code = Basophils) 1.1 <=1.0 [place] 702863-07-23 06:39:00 Test Item Value Reference Range Interpretation Comments Neutrophils # (test code = Neutrophils 4.5 1.5-8.1 #) [facility] HospitalHtomuinQKJFBVRKPR1573-52-08 06:39:00 Test Item Value Reference Range Interpretation Comments Lymphocytes # (test code = Lymphocytes 1.4 1.0-5.5 #) [facility] HospitalHojhmjmEDJNCMZDFA3873-37-35 06:39:00 Test Item Value Reference Range Interpretation Comments Monocytes # (test code = Monocytes #) 0.5 <=0.8 [place] 702863-07-23 06:39:00 Test Item Value Reference Range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 Acid Lvl (test code = Lactic 2.3 0.5-2.2 Acid Lvl) [facility] [id number] 06:34:44 Test Item Value Reference Range Interpretation Comments RADRPT (test code EXAM: CT CHEST WITH = RADRPT) CONTRASTEXAM: CT ABDOMEN AND PELVIS WITH CONTRASTDATE: 09/26/2022 at 0106 hours INDICATION: - pain after trauma COMPARISON: CT chest abdomen pelvis on 09/25/2022TECHNIQUE: Volumetric CT of the chest, abdomen and pelvis is acquired following intravenous administration of contrast. Axial, coronal and sagittal images are provided.IV contrast: Refer to MAR/technologist documentationOral contrast: None.DLP: Refer to CT protocol formUT SECTION: ERFINDINGS: Motion artifact throughout the examination.Inspector Motor Vehicles: Noncontributory.Lines and tubes: Median sternotomy wires are in place.Lower Neck: Supraclavicular soft tissues are within normal limits.Thoracic Aorta and Mediastinum: No mediastinal hematoma or thoracic aortic injury. The ascending aorta is ectatic and dilated to a diameter of 4.0 cm in AP dimension. Normal heart and pericardium. Aortic valve replacement has been performed. Calcification is seen within coronary vessels.Lungs, Pleura, Diaphragm: No pulmonary contusions. Dependent atelectasis is present bilaterally. No pleural effusion or pneumothorax. No diaphragmatic injury.Liver and biliary tree: No injury.Gallbladder: Cholelithiasis without signs of inflammationPancreas: No injury. Fatty atrophySpleen: No injury.Adrenals: No injury. Kidneys and ureters: No injury. Trace bilateral perinephric fat stranding. Multiple, small low-attenuation left renal are present. Renal cortical scarring is seen bilaterally.Bladder: No injury.Reproductive organs: No injury.Gastrointestinal tract: Normal. No bowel injury.Peritoneum and retroperitoneum: No fluid collections or free air.Lymph nodes: Normal.Vasculature: No vascular injury. Severe atherosclerotic disease seen with luminal narrowing at the aortic hiatus. Large plaque with intimal calcifications is seen at the proximal abdominal aorta at the aortic hiatus. Coarse calcification is seen at the ostium of the superior mesenteric artery. There is dilatation of the infrarenal abdominal aorta above the aortic bifurcation which measures 2.4 cm (series ).Spine/ Bones: No acute abnormality of the spine. Multilevel degenerative disc disease is present at T1/T2, T5-T10. Multilevel degenerative disc disease is also present in the lumbar spine most significant at L1-L4 with marginal osteophyte formation, endplate sclerosis, disc space narrowing and vacuum phenomena accompanied by diffuse facet arthropathy in the lumbar spine. 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 No other bony injury. Osteoarthritis of the shoulders is present with marginal osteophyte formation and joint narrowing of the glenohumeral jointsTotal left hip arthroplasty.Soft tissues: Subcutaneous fat contusion is present at right gluteal region and extends to the lateral aspect of the right hip. Right fat-containing inguinal hernia.IMPRESSION: 1. Small right-sided pneumothorax .2. Subcutaneous fat contusion is present at right gluteal region extending to the lateral aspect of the right hip.3. 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 Significant plaque and intimal calcifications are seen within proximal abdominal aorta at the aortic hiatus. Coarse calcification is seen at the ostium of superior mesenteric artery.4. Dilatation of infrarenal abdominal aorta above the aortic bifurcation which measures 2.4 cm.5. The ascending aorta is ectatic and dilated to a diameter 4.0 cm in AP dimension.6. The patient has undergone previous median sternotomy and aortic valve replacement.7. Cholelithiasis.8. Renal cortical scarring is present bilaterally. In addition, there is nonspecific bilateral perinephric fat stranding which may indicate underlying medical renal disease.9. Thoracic and lumbar spondylosis.10. Satisfactory appearance of prior total left hip arthroplasty with evaluation limited by beam hardening artifact and motion artifact.11. Motion artifact degrades imaging of the bilateral femurs. There is concern for injury at the femurs recommend radiographs for further evaluation.Critical finding of right pneumothorax was communicated to and acknowledged by Ariela Shaw II, MD via telephone at 09/26/2022 1:43 by Juan Cueva RES, MD [facility] [id number] 06:26:02 Test Item Value Reference Range Interpretation Comments RADRPT (test code EXAM: CT BRAIN WITHOUT = RADRPT) CONTRASTDATE: 09/26/2022UT SECTION: NeuroINDICATION: - SAH eval.COMPARISON: CT brain on 09/25/2022.TECHNIQUE: Axial CT images of the brain were obtained. Sagittal and coronal reformats.IV contrast: NoneDLP: Refer to CT protocol formFINDINGS: Interval increase in intraventricular hemorrhage, most notably seen in the right occipital horn and small amount seen within the left occipital horn. There are blood clots attached to the septum pellucidum posteriorly, predominantly on the right.Unchanged small subarachnoid hemorrhage noted within the right temporal lobe.No midline shift or significant regional mass effect. Overall size of the ventricles are unchanged compared to prior examination.Periventricular white matter hypoattenuation is nonspecific but likely represents chronic microvascular ischemic changes. The ventricles and sulci are enlarged from chronic brain parenchymal volume loss.The skull base, calvarium, and included facial bones are unremarkable. The paranasal sinuses are predominantly clear.IMPRESSION:1. Interval increase in intraventricular hemorrhage noted in bilateral lateral ventricles within the occipital horns. 2. Unchanged small subarachnoid hemorrhage noted within the right temporal lobe.3. Chronic brain parenchymal volume loss and microvascular ischemic changes. [facility] [employer] [facility] [id number] 06:26:00 Test Item Value Reference Range Interpretation Comments Platelet product (test Product available code = Platelet (09/26/22 1:26 AM) product) [facility] [employer] [facility] [id number] 06:26:00 Test Item Value Reference Range Interpretation Comments Platelet product (test Product available code = Platelet (09/26/22 1:26 AM) product) [facility] [id number] 05:28:47 Test Item Value Reference Range Interpretation Comments RADRPT (test code EXAM: XR RIGHT WRIST 4 = RADRPT) VIEWSEXAM: XR RIGHT FOREARM 2 VIEWSEXAM: XR RIGHT ELBOW 3 VIEWSEXAM: XR RIGHT HUMERUS 2 VIEWSDATE: 09/26/2022 0:15INDICATION: - pain after traumaCOMPARISON: None.TECHNIQUE: 4 views of the wrist, 2 views of the forearm, 3 views of the elbow, 2 views of the humerusFINDINGS: Wrist: No acute fracture or malalignment is identified. There is subchondral sclerosis, marginal osteophyte formation and significant joint narrowing at carpal metacarpal joint of the thumb.Forearm: No acute fracture or malalignment is identified.Elbow: No acute fracture or malalignment is identified. Mild ulnotrochlear osteophytosis. Supracondylar spur noted. An enthesophyte is seen at the insertion of triceps tendon. No elbow joint effusion is present.Humerus: No acute fracture or malalignment is identified. Moderate degenerative changes of the right acromioclavicular and glenohumeral joints.Soft tissues: Moderate soft tissue swelling is noted about the right shoulder. Minimal soft tissue swelling and subcutaneous fat stranding is seen at the medial aspect of the right elbow. Vascular calcifications are noted.IV catheter is seen at the lateral aspect of the right antecubital fossa.IMPRESSION: 1. No acute osseous abnormality.2. Mild soft tissue swelling along the superior lateral shoulder and medial elbow.3. Moderate osteoarthrosis of the right acromioclavicular and glenohumeral joints.4. 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 [facility] [id number] 03:20:00 Test Item Value Reference Range Interpretation Comments Lactic Acid Lvl (test code = Lactic 3.3 0.5-2.2 Acid Lvl) [facility] [id number] 03:20:00 Test Item Value Reference Range Interpretation Comments Ethanol Lvl (test code = Ethanol Lvl) no gt [facility] [id number] 03:20:00 Test Item Value Reference Range Interpretation Comments Etoh (%) (test code = Etoh (%)) no gt [facility] [id number] 03:20:00 Test Item Value Reference Range Interpretation Comments pH Anjel (test code = pH Anjel) 7.30 1 7.28-7.42 [facility] [id number] 03:20:00 Test Item Value Reference Range Interpretation Comments pCO2 Anjel (test code = pCO2 Anjel) 52 38-52 [facility] TexasRallyfsEVXMTZCFC1639-42-11 03:20:00 Test Item Value Reference Range Interpretation Comments pO2 Anjel (test code = pO2 Anjel) 30 20-49 [place] [id number] 03:20:00 Test Item Value Reference Range Interpretation Comments HCO3 Anjel (test code = HCO3 Anjel) 26 22-26 [place] [id number] 03:20:00 Test Item Value Reference Range Interpretation Comments BE Anjel (test code = BE Anjel) -2 -2-2 [facility] TexasLnmheaeTKGNCCRRL8182-59-72 03:20:00 Test Item Value Reference Range Interpretation Comments O2 Sat Anjel (calc) (test code = O2 Sat 49.5 40.0-70.0 Anjel (calc)) [facility] TexasLdasgprXSVXCDBKQ4843-87-45 03:20:00 Test Item Value Reference Range Interpretation Comments Temp Anjel (test code = Temp Anjel) 37.0 [facility] H[id number] 03:20:00 Test Item Value Reference Range Interpretation Comments ACT (TEG) Rapid (test code = ACT (TEG) 121 s 86-118 Rapid) [facility] H[id number] 03:20:00 Test Item Value Reference Range Interpretation Comments Split Point Rapid (test code = Split 0.7 min Point Rapid) [facility] Hos[id number] 03:20:00 Test Item Value Reference Range Interpretation Comments R-time Rapid (test code = R-time 0.8 min 0.4-0.7 Rapid) [facility] HospitalXzfoqfaTKHBTLMSGO0717-06-13 03:20:00 Test Item Value Reference Range Interpretation Comments K-time Rapid (test code = K-time 2.1 min 0.6-2.3 Rapid) [facility] HospitalLdwnawhCGLDRJSLHJ5305-57-46 03:20:00 Test Item Value Reference Range Interpretation Comments Angle Rapid (test code = Angle 69 degrees 64-80 Rapid) [facility] H[id number] 03:20:00 Test Item Value Reference Range Interpretation Comments Max Amplitude Rapid (test code = Max 61 mm 52-71 Amplitude Rapid) [facility] HospitalAoclfryBZGLBKDNXL6206-51-10 03:20:00 Test Item Value Reference Range Interpretation Comments G-value Rapid (test code = G-value 7.9 5.0-11.6 Rapid) [facility] HospitalAepsutzCEHERPCAJP7626-29-38 03:20:00 Test Item Value Reference Range Interpretation Comments Estimated % Lysis Rapid (test code = 0.0 <=7.5 Estimated % Lysis Rapid) [facility] HospitalDcixlsjCGDYXJCPEB0657-22-25 03:20:00 Test Item Value Reference Range Interpretation Comments ACT (TEG) Rapid (test code = ACT (TEG) 121 s 86-118 Rapid) [facility] HospitalDdfbeycHQMZECSRQB3080-89-56 03:20:00 Test Item Value Reference Range Interpretation Comments Split Point Rapid (test code = Split 0.7 min Point Rapid) [facility] HospitalBavcdqtTUMIDGLPVA1288-27-69 03:20:00 Test Item Value Reference Range Interpretation Comments R-time Rapid (test code = R-time 0.8 min 0.4-0.7 Rapid) [facility] Ho[id number] 03:20:00 Test Item Value Reference Range Interpretation Comments K-time Rapid (test code = K-time 2.1 min 0.6-2.3 Rapid) [facility] HospitalUukozcpSGPPXNBEJZ1715-38-13 03:20:00 Test Item Value Reference Range Interpretation Comments Angle Rapid (test code = Angle 69 degrees 64-80 Rapid) [facility] HospitalFwjlqhyCTKVGCXHUI5500-39-48 03:20:00 Test Item Value Reference Range Interpretation Comments Max Amplitude Rapid (test code = Max 61 mm 52-71 Amplitude Rapid) [facility] HospitalPvzmfsqJTDXQDNKEJ2032-25-30 03:20:00 Test Item Value Reference Range Interpretation Comments G-value Rapid (test code = G-value 7.9 5.0-11.6 Rapid) [facility] Ho[id number] 03:20:00 Test Item Value Reference Range Interpretation Comments Estimated % Lysis Rapid (test code = 0.0 <=7.5 Estimated % Lysis Rapid) [id number] 03:20:00 Test Item Value Reference Range Interpretation Comments Coronavirus (COVID-19) Not Detected KEYSHA (test code = 11(09/25/22 10:20 PM) Coronavirus (COVID-19) KEYSHA) [place] [id number] 03:20:00 Test Item Value Reference Range Interpretation Comments Coronavirus (COVID-19) Not Detected KEYSHA (test code = 8(09/25/22 10:20 PM) Coronavirus (COVID-19) KEYSHA) [facility] HospitalKjnunumEPHTDATRKE6295-05-90 03:20:00 Test Item Value Reference Range Interpretation Comments Ethanol Lvl (test code = Ethanol Lvl) no gt [facility] VfjgnegZCYIHYGIKO8075-29-78 03:20:00 Test Item Value Reference Range Interpretation Comments Etoh (%) (test code = Etoh (%)) no gt [facility] [employer] [id number] 03:14:00 Test Item Value Reference Range Interpretation Comments ABO/Rh (test code = ABO/Rh) A POS [facility] [employer] [id number] 03:14:00 Test Item Value Reference Range Interpretation Comments Antibody Scrn (test Negative (09/25/22 code = Antibody Scrn) 10:14 PM) [facility] [employer] [id number] 03:14:00 Test Item Value Reference Range Interpretation Comments ABO/Rh (test code = ABO/Rh) A POS [employer] [id number] 03:14:00 Test Item Value Reference Range Interpretation Comments Antibody Scrn (test Negative (09/25/22 code = Antibody Scrn) 10:14 PM) [facility] HospitalOnset TechnologyPOCT-GLUCOSE [id number] 06:37:00 Test Item Value Reference Range Interpretation Comments POC-GLUCOSE METER 112 mg/dL 70-110 H : TESTED A T BLSMC 7200 (BEAKER) (test code CAMBRIDG E BLDG A, = 1538) [place] [id number] 0: Tax Commissioner/Techni walt ID = [id number] for Elsy Donald POCT-GLUCOSE [id number] 17:09:00 Test Item Value Reference Range Interpretation Comments POC-GLUCOSE METER 126 mg/dL 70-110 H : TESTED A T BLSMC 7200 (BEAKER) (test code CAMBRIDG E BLDG A, = 1538) [place] [address] 0: Tax Commissioner/Techni walt ID = [id number] for Bisi Andujar POCT-GLUCOSE [id number] 06:49:00 Test Item Value Reference Range Interpretation Comments POC-GLUCOSE METER 92 mg/dL 70-110 : TESTED A T BLSMC 7200 (BEAKER) (test code = CAMBRI DGE BLDG A, 1538) [facility] 7703 0: Tax Commissioner/Techni walt ID = [id number] for ETHAN HOFF SARS-COV2/RT-PCR ([facility])2020-04-27 05:38:00 Test Item Value Reference Range Interpretation Comments SARS-COV2/RT-PCR (test code Negative Not Detected, Negative, = 4887923) See external report for linked test SARS-COV-2 PERFORMING LAB [facility] (test code = 2258014) Negative results do not preclude SARS-CoV-2 infection [...] of the Act.Fact Sheet for Healthcare Pro viders:https://www.quickhuddle.UrgentRx/Documents/Xpert%20Xpress%20SARS%20CoV-2/Fact%20Sh eets/232-3802%89NGQB-IRB-1%20HEALTHCARE%20PROVIDERS%20FACT%20SHEET.pdfFact Sheet for Healthcare Patients:https://www.mobli.UrgentRx/Documents/Xpert%20Xpress%20SARS%20CoV-2/Fact%20Sheets/3023801%20SARS-COV -2%20PATIENT%20FACT%20SHEET.pdfPerforming Laboratory:[facility] [place], [place] [address]UCUD-NXOFQCF [id number] 21:25:00 Test Item Value Reference Range Interpretation Comments POC-GLUCOSE METER 104 mg/dL 70-110 : TESTED A T [facility]SM[facility] 7200 (BEAKER) (test code CAMBRIDG E BLDG A, = 1538) [place] [address] 0: Tax Commissioner/Techni walt ID = [id number] for ETHAN HOFF POCT-GLUCOSE [id number] 17:03:00 Test Item Value Reference Range Interpretation Comments POC-GLUCOSE METER 114 mg/dL 70-110 H : TESTED A T [facility]SM[facility] 7200 (BEAKER) (test code CAMBRIDG E BLDG A, = 1538) [place] [address] 0: Tax Commissioner/Techni walt ID = [id number] for JATIN S, SHANNON POCT-GLUCOSE [id number] 11:05:00 Test Item Value Reference Range Interpretation Comments POC-GLUCOSE METER 132 mg/dL 70-110 H : TESTED A T [facility]SM[facility] 7200 (BEAKER) (test code CAMBRIDG E BLDG A, = 1538) [place] [address] 0: Tax Commissioner/Techni walt ID = [id number] for JATIN S, SHANNON POCT-GLUCOSE [id number] 06:37:00 Test Item Value Reference Range Interpretation Comments POC-GLUCOSE METER 119 mg/dL 70-110 H : TESTED A T [facility] 7200 (BEAKER) (test code CAMBRIDG E BLDG A, = 1538) [place] [address] 0: Tax Commissioner/Techni walt ID = [id number] for CAMF IELD, CRYSTAL POCT-GLUCOSE [id number] 20:54:00 Test Item Value Reference Range Interpretation Comments POC-GLUCOSE METER 142 mg/dL 70-110 H : TESTED A T [facility]SM[facility] 7200 (BEAKER) (test code CAMBRIDG E BLDG A, = 1538) [place] [address] 0: Tax Commissioner/Techni walt ID = [id number] for CAMF IELD, CRYSTAL POCT-GLUCOSE [id number] 17:18:00 Test Item Value Reference Range Interpretation Comments POC-GLUCOSE METER 120 mg/dL 70-110 H : TESTED A T [facility] 7200 (BEAKER) (test code CAMBRIDG E BLDG A, = 1538) [place] [address] 0: Tax Commissioner/Techni walt ID = [id number] for NEO QUEZADAA POCT-GLUCOSE [id number] 11:59:00 Test Item Value Reference Range Interpretation Comments POC-GLUCOSE METER 106 mg/dL 70-110 : TESTED A T [facility] 7200 (BEAKER) (test code CAMBRIDG E BLDG A, = 1538) [place] [address] 0: Tax Commissioner/Techni walt ID = [id number] for NEO QUEZADA ELBA POCT-GLUCOSE [id number] 06:29:00 Test Item Value Reference Range Interpretation Comments POC-GLUCOSE METER 113 mg/dL 70-110 H : TESTED A T [facility]SM[facility] 7200 (BEAKER) (test code CAMBRIDG E BLDG A, = 1538) [place] [address] 0: Tax Commissioner/Techni walt ID = [id number] for CAMF IELD, CRYSTAL POCT-GLUCOSE [id number] 21:06:00 Test Item Value Reference Range Interpretation Comments POC-GLUCOSE METER 139 mg/dL 70-110 H : TESTED A T [facility] 7200 (BEAKER) (test code CAMBRIDG E BLDG A, = 1538) [place] [address] 0: Tax Commissioner/Techni walt ID = [id number] for CAMF IELD, CRYSTAL POCT-GLUCOSE [id number] 16:51:00 Test Item Value Reference Range Interpretation Comments POC-GLUCOSE METER 128 mg/dL 70-110 H : TESTED A T [facility] 7200 (BEAKER) (test code CAMBRIDG E BLDG A, = 1538) [place] [address] 0: Tax Commissioner/Techni walt ID = [id number] for KANDIS LUO POCT-GLUCOSE [id number] 11:58:00 Test Item Value Reference Range Interpretation Comments POC-GLUCOSE METER 133 mg/dL 70-110 H : TESTED A T [facility] 7200 (BEAKER) (test code CAMBRIDG E BLDG A, = 1538) [place] [address] 0: Tax Commissioner/Techni walt ID = [id number] for FADUMO CAMPBELL POCT-GLUCOSE [id number] 06:33:00 Test Item Value Reference Range Interpretation Comments POC-GLUCOSE METER 102 mg/dL 70-110 : TESTED A T [facility]SM[facility] 7200 (BEAKER) (test code CAMBRIDG E BLDG A, = 1538) [place] [address] 0: Tax Commissioner/Techni walt ID = [id number] for CAMF IELD, CRYSTAL BASIC METABOLIC [id number] 04:59:00 Test Item Value Reference Range Interpretation [...] NOT APPLICABLE FOR DIALYSIS PATIEN TS. POCT-GLUCOSE [id number] 20:55:00 Test Item Value Reference Range Interpretation Comments POC-GLUCOSE METER 134 mg/dL 70-110 H : TESTED A T [facility]SM[facility] 7200 (BEAKER) (test code CAMBRIDG E BLDG A, = 1538) [place] [address] 0: Tax Commissioner/Techni walt ID = [id number] for CAMF IELD, CRYSTAL POCT-GLUCOSE [id number] 16:44:00 Test Item Value Reference Range Interpretation Comments POC-GLUCOSE METER 137 mg/dL 70-110 H : TESTED A T [facility] 7200 (BEAKER) (test code CAMBRIDG E BLDG A, = 1538) [place] [address] 0: Tax Commissioner/Techni walt ID = [id number] for ORIBINDULA-ADELE MILLERMA POCT-GLUCOSE [id number] 11:49:00 Test Item Value Reference Range Interpretation Comments POC-GLUCOSE METER 102 mg/dL 70-110 : TESTED A T [facility] 7200 (BEAKER) (test code CAMBRIDG E BLDG A, = 1538) [place] [address] 0: Tax Commissioner/Techni walt ID = [id number] for FADUMO CAMPBELL POCT-GLUCOSE [id number] 06:35:00 Test Item Value Reference Range Interpretation Comments POC-GLUCOSE METER 140 mg/dL 70-110 H : TESTED A T [facility] 7200 (BEAKER) (test code CAMBRIDG E BLDG A, = 1538) [place] [address] 0: Tax Commissioner/Techni walt ID = [id number] for CAMF IELD, CRYSTAL POCT-GLUCOSE [id number] 21:02:00 Test Item Value Reference Range Interpretation Comments POC-GLUCOSE METER 132 mg/dL 70-110 H : TESTED A T [facility] 7200 (BEAKER) (test code CAMBRIDG E BLDG A, = 1538) [place] [address] 0: Tax Commissioner/Techni walt ID = [id number] for CAMF IELD, CRYSTAL POCT-GLUCOSE [id number] 16:57:00 Test Item Value Reference Range Interpretation Comments POC-GLUCOSE METER 119 mg/dL 70-110 H : TESTED A T [facility] 7200 (BEAKER) (test code CAMBRIDG E BLDG A, = 1538) [place] [address] 0: Tax Commissioner/Techni walt ID = [id number] for ONWU KA, AMAUCHE POCT-GLUCOSE [id number] 12:14:00 Test Item Value Reference Range Interpretation Comments POC-GLUCOSE METER 98 mg/dL 70-110 : TESTED A T [facility] 7200 (BEAKER) (test code = CAMBRI DGE BLDG A, 1538) [place] [address] 0: Tax Commissioner/Techni walt ID = [id number] for ONWU KA, AMAUCHE VITAMIN B12 AND [id number] 07:28:00 Test Item Value Reference Range Interpretation Comments VITAMIN B12 368 pg/mL 211-911 (BEAKER) (test code = 774) FOLATE (BEAKER) 10.78 ng/mL See_Comment [Automated message] (test code = 362) The system which generated this result transmitted ref erence range: >=5.40. The reference range was not used to interpr et this result as normal/abnormal . COMPREHENSIVE METABOLIC [id number] 06:55:00 Test Item Value Reference Range Interpretation [...] S NOT APPLICABLE FOR DIALYSIS PATIEN TS. [id number] 06:55:00 Test Item Value Reference Range Interpretation Comments PHOSPHORUS (BEAKER) 4.0 mg/dL 2.3-4.7 Specimen slightly (test code = 604) hemolyzed POCT-GLUCOSE [id number] 06:42:00 Test Item Value Reference Range Interpretation Comments POC-GLUCOSE METER 124 mg/dL 70-110 H : TESTED A T [facility] 7200 (BEAKER) (test code CAMBRIDG E BLDG A, = 1538) [place] [address] 0: Tax Commissioner/Techni walt ID = [id number] for CORINA MOSLEY (V), CELSO CBC W/PLT COUNT & AUTO [id number] 06:37:00 Test Item Value Reference Range Interpretation [...] PERCENT (BEAKER) (test code = 2801) POCT-GLUCOSE [id number] 21:15:00 Test Item Value Reference Range Interpretation Comments POC-GLUCOSE METER 149 mg/dL 70-110 H : TESTED A T [facility] 7200 (BEAKER) (test code CAMBRIDG E BLDG A, = 1538) [place] [address] 0: Tax Commissioner/Techni walt ID = [id number] for FERKenneth ANDO (V), CELSO POCT-GLUCOSE [id number] 17:17:00 Test Item Value Reference Range Interpretation Comments POC-GLUCOSE METER 143 mg/dL 70-110 H : TESTED A T [facility] 7200 (BEAKER) (test code CAMBRIDG E BLDG A, = 1538) [place] [address] 0: Tax Commissioner/Techni walt ID = [id number] for XAVI PERERAU, LIBORIO COMPREHENSIVE METABOLIC [id number] 07:44:00 Test Item Value Reference Range Interpretation [...] S NOT APPLICABLE FOR DIALYSIS PATIEN TS. Tax Commissioner ID - HEATHER [id number] 07:44:00 Test Item Value Reference Range Interpretation Comments MAGNESIUM (BEAKER) (test code = 2.1 mg/dL 1.6-2.6 627) Tax Commissioner ID - HEATHER [id number] 07:44:00 Test Item Value Reference Range Interpretation Comments PHOSPHORUS (BEAKER) (test code = 3.2 mg/dL 2.3-4.7 604) Tax Commissioner ID - HEATHER LCBC W/PLT COUNT & AUTO [id number] 07:00:00 Test Item Value Reference Range Interpretation [...] PERCENT (BEAKER) (test code = 2801) SARS-COV2/RT-PCR ([facility])2020-04-21 00:16:00 Test Item Value Reference Range Interpretation Comments SARS-COV2/RT-PCR (test Negative Not Detected, Negative, code = 0583633) See external report for linked test SARS-COV-2 PERFORMING LAB [facility] (test code = 6192002) Negative result for this test determines that [...] of the Act.Fact Sheet for Healthcare Pro viders:https://www.[employer]/sites/default/files/product/documents/Fact_Sheet_H K_Mlvfpicew_Trjx_PNWK-PwY-5.pdfFact Sheet for Healthcare Patients:https://www.[employer]/sites/default/files/product/docum ents/Umwk_Zxeyu_Wfyukvvx_Fotc_TWHH-ZkL-2.pdfPerforming Laboratory:[facility], [place] [address]CU, BRAIN, WITHOUT [id number] 18:05:00Unlisted Reason for Exam - Click Yes and Enter Reason Below->NoUS[facility]: JEAN[facility]TE POOLE KATHY : 1940 Sex: MFINAL REPORT MR, [...] fissure,without significant mass effect. Signed: Joy Machado MDRepkansas city va medical center Verified Date/Time: 04/20/2020 18:05:36 CT BRAIN WITHOUT IV CONTRAST - [id number] 08:18:00Unlisted Reason for Exam - Click Yes and Enter Reason Below->No [facility] : 1940 Sex: MFINAL REPORT [...] MDReport Verified Date/Time: 04/20/2020 08:18:01 Reading Location: [address] Neuro Reading Room GLOBIN [id number] 07:47:00 Test Item Value Reference Range Interpretation Comments HEMOGLOBIN A1C (BEAKER) (test code = 6.7 % 4.3-6.1 H 368) [id number] 05:43:00 Test Item Value Reference Range Interpretation Comments PARTIAL THROMBOPLASTIN TIME 37.3 seconds 22.5-36.0 H (BEAKER) (test code = 760) PROTHROMBIN [id number] 05:42:00 Test Item Value Reference Range Interpretation Comments PROTIME (BEAKER) 15.9 seconds 11.9-14.2 H (test code = 759) INR (BEAKER) (test 1.31 See_Comment [Automat ed message] code = 370) The system Spry generated this result transmitted ref erence range: [...] patients wiht mechanical heart valves.TSH/FREE T4 IF [id number] 05:39:00 Test Item Value Reference Range Interpretation Comments THYROID STIMULATING HORMONE 0.510 uIU/mL 0.350-4.940 (BEAKER) (test code = 772) Tax Commissioner ID - ADELAIDE MCOMPREHENSIVE METABOLIC [id number] 05:23:00 Test Item Value Reference Range Interpretation [...] S NOT APPLICABLE FOR DIALYSIS PATIEN TS. Tax Commissioner ID - [id number] 05:23:00 Test Item Value Reference Range Interpretation Comments MAGNESIUM (BEAKER) (test code = 1.9 mg/dL 1.6-2.6 627) Tax Commissioner ID - [id number] 05:23:00 Test Item Value Reference Range Interpretation Comments PHOSPHORUS (BEAKER) (test code = 2.9 mg/dL 2.3-4.7 604) Tax Commissioner ID - SMLIPID [id number] 05:23:00 Test Item Value Reference Range Interpretation [...] Borderline 130-159 High 160-189 Very High >=190 Tax Commissioner ID - SMCBC W/PLT COUNT & AUTO [id number] 05:04:00 Test Item Value Reference Range Interpretation [...] PERCENT (BEAKER) (test code = 2801) POCT-GLUCOSE [id number] 16:36:00 Test Item Value Reference Range Interpretation Comments POC-GLUCOSE METER 108 mg/dL 70-110 TESTED AT [facility] 6720 (BEAKER) (test code = TABATHA SANTOS 1538) [address] BASIC METABOLIC [id number] 08:25:00 Test Item Value Reference Range Interpretation [...] PATIEN TS. CBC W/PLT COUNT & AUTO [id number] 05:31:00 Test Item Value Reference Range Interpretation [...] PERCENT (BEAKER) (test code = 2801) POCT-GLUCOSE [id number] 23:32:00 Test Item Value Reference Range Interpretation Comments POC-GLUCOSE METER 95 mg/dL 70-110 TESTED AT [place] [address] (BEAKER) (test code = [facility] [address] 1538) POCT-GLUCOSE [id number] 17:21:00 Test Item Value Reference Range Interpretation Comments POC-GLUCOSE METER 104 mg/dL 70-110 TESTED AT [place] [address] (BEAKER) (test code = [facility] 1538) [address] [id number] 10:35:00 Test Item Value Reference Range Interpretation Comments MAGNESIUM (BEAKER) (test code = 1.9 mg/dL 1.6-2.6 627) POCT-GLUCOSE [id number] 09:09:00 Test Item Value Reference Range Interpretation Comments POC-GLUCOSE METER 122 mg/dL 70-110 H TESTED AT [place] [address] (BEAKER) (test code = [facility] 1538) [address] BASIC METABOLIC [id number] 02:49:00 Test Item Value Reference Range Interpretation [...] APPLICABLE FOR DIALYSIS PATIEN TS. LACTIC ACID, [id number] 02:46:00 Test Item Value Reference Range Interpretation Comments LACTATE BLOOD VENOUS (2) (BEAKER) 2.0 mmol/L 0.5-2.2 (test code = 2872) LACTIC ACID, [id number] 22:31:00 Test Item Value Reference Range Interpretation Comments LACTATE BLOOD VENOUS (2) (BEAKER) 2.1 mmol/L 0.5-2.2 (test code = 2872) POCT-GLUCOSE [id number] 21:55:00 Test Item Value Reference Range Interpretation Comments POC-GLUCOSE METER 168 mg/dL 70-110 H TESTED AT [facility] 6720 (BEAKER) (test code = [place] 1538) [address] [id number] 20:15:00 Test Item Value Reference Range Interpretation Comments MAGNESIUM (BEAKER) (test code = 1.9 mg/dL 1.6-2.6 627) BASIC METABOLIC [id number] 20:15:00 Test Item Value Reference Range Interpretation [...] PATIEN TS. CBC W/PLT COUNT & AUTO [id number] 20:14:00 Test Item Value Reference Range Interpretation [...] (BEAKER) (test code = 2801) POCT-LACTIC ACID, [id number] 19:45:00 Test Item Value Reference Range Interpretation Comments POC-LACTIC ACID, 2.4 mmol/L 0.9-1.7 H TESTED AT [facility] [address] ([facility]) (test [facility] code = 2805) [address] POCT-GLUCOSE [id number] 19:25:00 Test Item Value Reference Range Interpretation Comments POC-GLUCOSE METER 204 mg/dL 70-110 H TESTED AT [facility] 67 ([facility]) (test code = [facility] 1538) [address] POCT-GLUCOSE [id number] 17:24:00 Test Item Value Reference Range Interpretation Comments POC-GLUCOSE METER 149 mg/dL 70-110 H TESTED AT [place] [address] ([facility]) (test code = [facility] 1538) [address] RAD, CHEST, 1 VIEW, NON [id number] 12:01:00Reason for exam:- >dyspneaShould this be performed [...] [facility] Radiology Reading Room TISSUE [id number] 11:59:00Surgical Pathology Report Case: [id number] Authorizing Provider: Shine Talavera, Collected: 0 07/21/2018 1022 Ordering Location: [facility] Received: 07/21/2018 1159 PERIOPERATIVE SERVICES Pathologist: Davion Mallory MD Specimen: Aortic Valve HEART, AORTIC VALVE, VALVULECTOMY:LEAFLETSWITH SEVERE NODULAR CALCIFIC ATHEROSCLEROTIC THICKENING Signing Pathologist Direct Phone Line: [phone]; [phone] disease disease, aortic valve stenosis, etiology of [...] 1.3 cm. Portion of the valvular tissue istan-white and glistening, but diffuse calcifications are seen. No vegetations or masses are appreciated. The specimen is submitted representatively in a single cassette following decalcification. RC/[id number] 11:30:00 Test Item Value Reference Range Interpretation Comments MAGNESIUM (BEAKER) (test code = 1.7 mg/dL 1.6-2.6 627) POCT-GLUCOSE [id number] 09:47:00 Test Item Value Reference Range Interpretation Comments POC-GLUCOSE METER 114 mg/dL 70-110 H TESTED AT [facility] 6720 (BEAKER) (test code = TABATHA Lozano [facility] 1538) [address] BASIC METABOLIC [id number] 05:37:00 Test Item Value Reference Range Interpretation [...] NOT APPLICABLE FOR DIALYSIS PATIEN TS. POCT-GLUCOSE [id number] 21:01:00 Test Item Value Reference Range Interpretation Comments POC-GLUCOSE METER 136 mg/dL 70-110 H TESTED AT [place] [address] ([facility]) (test code = [facility] 1538) [address] POCT-GLUCOSE [id number] 15:47:00 Test Item Value Reference Range Interpretation Comments POC-GLUCOSE METER 121 mg/dL 70-110 H TESTED AT [place] [address] ([facility]) (test code = [facility] 1538) [address] POCT-GLUCOSE [id number] 09:34:00 Test Item Value Reference Range Interpretation Comments POC-GLUCOSE METER 95 mg/dL 70-110 TESTED AT [place] [address] ([facility]) (test code = [facility] [address] 1538) BASIC METABOLIC [id number] 07:28:00 Test Item Value Reference Range Interpretation [...] NOT APPLICABLE FOR DIALYSIS PATIEN TS. POCT-GLUCOSE [id number] 22:08:00 Test Item Value Reference Range Interpretation Comments POC-GLUCOSE METER 149 mg/dL 70-110 H TESTED AT [facility] 6720 ([facility]) (test code = [facility] 1538) [address] POCT-GLUCOSE [id number] 15:46:00 Test Item Value Reference Range Interpretation Comments POC-GLUCOSE METER 95 mg/dL 70-110 TESTED AT [facility] 6720 ([facility]) (test code = [facility] [address] 1538) B-TYPE NATRIURETIC FACTOR (BNP)2018-07-25 11:55:00 Test Item Value Reference Range Interpretation Comments B-TYPE NATRIURETIC PEPTIDE (LIZETTAKER) 301 pg/mL 0-100 H (test code = 700) RAD, CHEST, 1 VIEW, NON [id number] 11:29:00Reason for exam:->shortness of breathShould this be performed at the bedside?->YesFINAL REPORT Comparison: 07/24/2018 TECHNIQUE: Single view of the chest FINDINGS: Small left pleural effusion with adjacent airspace disease. Mild vascular congestion suspected elsewhere. Cardiac silhouette is enlarged. Postsurgical changes in the mediastinum noted. Signed: Aung Timmons MDReport Verified Date/Time: 07/25/2018 11:29:19 Reading Location: [address] Read ing Room [id number] 09:47:00 Test Item Value Reference Range Interpretation Comments MAGNESIUM (BEAKER) (test code = 1.9 mg/dL 1.6-2.6 627) BASIC METABOLIC [id number] 09:47:00 Test Item Value Reference Range Interpretation [...] NOT APPLICABLE FOR DIALYSIS PATIEN TS. POCT-GLUCOSE [id number] 08:41:00 Test Item Value Reference Range Interpretation Comments POC-GLUCOSE METER 115 mg/dL 70-110 H TESTED AT [facility] 6720 ([facility]) (test code = TAB[place] 1538) [address] CBC W/PLT COUNT & AUTO [id number] 06:04:00 Test Item Value Reference Range Interpretation [...] PERCENT (BEAKER) (test code = 2801) POCT-GLUCOSE [id number] 21:45:00 Test Item Value Reference Range Interpretation Comments POC-GLUCOSE METER 120 mg/dL 70-110 H TESTED AT [place] [address] ([facility]) (test code = TABATHA Lozano [facility] 1538) [address] POCT-GLUCOSE [id number] 18:01:00 Test Item Value Reference Range Interpretation Comments POC-GLUCOSE METER 150 mg/dL 70-110 H TESTED AT [place] [address] ([facility]) (test code = TABATHA Lozano [facility] 1538) [address] POCT-GLUCOSE [id number] 13:03:00 Test Item Value Reference Range Interpretation Comments POC-GLUCOSE METER 152 mg/dL 70-110 H TESTED AT [place] [address] ([facility]) (test code = DELROYSHANNEN Lozano [facility] 1538) [address] RAD, CHEST, 1 VIEW, NON [id number] 09:45:00Reason for exam:->pleural effShould this be performed at the bedside?->YesFINAL REPORT TECHNIQUE: Frontal chest radiograph dated 07/24/2018. CLINICAL HISTORY: Pleural effusion COMPARISON STUDY: Chest radiograph dated 07/22/2018 IMPRESSION:The extreme lateral left lung base is not included in the zcrsu-ty-pfpo. A small left pleural effusion is suspected. Stable left lung base atelectasis. No pneumothorax. Cardiomediastinal silhouette is normal in size. No pulmonary edema. Midline sternotomy wires are intact and well aligned. Signed: Neel Hameport Verified Date/Time: 07/24/2018 09:45:08 Reading Location: [facility] Radiology Reading Room POCT-GLUCOSE [id number] 08:16:00 Test Item Value Reference Range Interpretation Comments POC-GLUCOSE METER 149 mg/dL 70-110 H TESTED AT [facility] 6720 (BEAKER) (test code = TABATHA [place]ozano [place] 1538) [address] [id number] 07:48:00 Test Item Value Reference Range Interpretation Comments PHOSPHORUS (BEAKER) (test code = 1.5 mg/dL 2.3-4.7 LL 604) [id number] 07:43:00 Test Item Value Reference Range Interpretation Comments MAGNESIUM (BEAKER) (test code = 1.8 mg/dL 1.6-2.6 627) BASIC METABOLIC [id number] 07:43:00 Test Item Value Reference Range Interpretation [...] PATIEN TS. CBC W/PLT COUNT & AUTO [id number] 06:04:00 Test Item Value Reference Range Interpretation [...] PERCENT (BEAKER) (test code = 2801) POCT-GLUCOSE [id number] 21:28:00 Test Item Value Reference Range Interpretation Comments POC-GLUCOSE METER 130 mg/dL 70-110 H TESTED AT [place] [address] (BEAKER) (test code = TAB[place] 1538) [address] URINALYSIS W/ REFLEX URINE [id number] 18:20:00 Test Item Value Reference Range Interpretation [...] = 1574) Moderate SOURCE(BEAKER) (test code = 2797) POCT-GLUCOSE [id number] 14:57:00 Test Item Value Reference Range Interpretation Comments POC-GLUCOSE METER 135 mg/dL 70-110 H TESTED AT [facility] 6720 (BEAKER) (test code = TAB[place] 1538) [address] B-TYPE NATRIURETIC FACTOR (BNP)2018-07-23 06:49:00 Test Item Value Reference Range Interpretation Comments B-TYPE NATRIURETIC PEPTIDE (BEAKER) 446 pg/mL 0-100 H (test code = 700) [id number] 06:09:00 Test Item Value Reference Range Interpretation Comments PHOSPHORUS (BEAKER) (test code = 2.4 mg/dL 2.3-4.7 604) [id number] 06:09:00 Test Item Value Reference Range Interpretation Comments MAGNESIUM (BEAKER) (test code = 2.0 mg/dL 1.6-2.6 627) BASIC METABOLIC [id number] 06:09:00 Test Item Value Reference Range Interpretation [...] NOT APPLICABLE FOR DIALYSIS PATIEN TS. CALCIUM, [id number] 05:57:00 Test Item Value Reference Range Interpretation Comments CALCIUM IONIZED (BEAKER) (test 1.03 mmol/L 1.12-1.27 L code = 698) PH, BLOOD (BEAKER) (test code = 7.44 1810) Check serum Ionized Calcium level after 4 hours after IV Calcium replacement.CBC W/PLT COUNT & AUTO [id number] 05:46:00 Test Item Value Reference Range Interpretation [...] 417) IMMATURE GRANULOCYTES-RELATIVE 1 % 0-1 PERCENT ([facility]) (test code = 2801) RAD, CHEST, 1 VIEW, NON [id number] 00:00:00Reason for exam:->sobShould this be performed at [...] osseous structures are unremarkable. Signed: Shala Woods Verified Date/Time: 07/23/2018 00:00:17 Reading Location: [address] Consult Reading Room POCT-GLUCOSE [id number] 21:49:00 Test Item Value Reference Range Interpretation Comments POC-GLUCOSE METER 133 mg/dL 70-110 H TESTED AT [place] [address] ([facility]) (test code = TABATHA Lozano [facility] 1538) [address] POCT-GLUCOSE [id number] 16:55:00 Test Item Value Reference Range Interpretation Comments POC-GLUCOSE METER 156 mg/dL 70-110 H TESTED AT [place] [address] ([facility]) (test code = TABATHA Lozano [facility] 1538) [address] POCT-GLUCOSE [id number] 11:33:00 Test Item Value Reference Range Interpretation Comments POC-GLUCOSE METER 164 mg/dL 70-110 H TESTED AT [place] [address] ([facility]) (test code = TABATHA Lozano [facility] 1538) [address] [id number] 11:29:00 Test Item Value Reference Range Interpretation Comments PARTIAL THROMBOPLASTIN TIME 47.4 seconds 22.5-36.0 H ([facility]) (test code = 760) PLATELET [id number] 11:14:00 Test Item Value Reference Range Interpretation Comments PLATELET COUNT ([facility]) (test 105 K/CU MM 150-450 L code = 756) BASIC METABOLIC [id number] 05:57:00 Test Item Value Reference Range Interpretation [...] GFR I S NOT APPLICABLE FOR DIALYSIS PATIHAILE TS. [id number] 05:56:00 Test Item Value Reference Range Interpretation Comments PHOSPHORUS (BEAKER) (test code = 3.3 mg/dL 2.3-4.7 604) [id number] 05:56:00 Test Item Value Reference Range Interpretation Comments MAGNESIUM (BEAKER) (test code = 2.0 mg/dL 1.6-2.6 627) CBC W/PLT COUNT & AUTO [id number] 05:34:00 Test Item Value Reference Range Interpretation [...] (BEAKER) (test code = 2801) OXYGEN SATURATION, [id number] 05:24:00 Test Item Value Reference Range Interpretation Comments O2 SATURATION (MEASURED) (BEAKER) 62.1 % (test code = 1455) BLOOD GAS, [id number] 05:20:00 Test Item Value Reference Range Interpretation [...] -2.0-3.0 (test code = 387) PATIENT TEMPERATURE ([facility]) 37.4 C (test code = 1818) FIO2 (BEAKER) (test code = 1819) 40.0 % RAD, CHEST, 1 VIEW, NON [id number] 04:49:00Reason for exam:->s/p cardiac surgeryShould this be performed at the bedside?->YesFINAL REPORT CLINICAL INDICATION: Postop Comparison: 07/21/2018 The cardiomediastinal contours are stable. The lung volumes are stable after extubation. Central pulmonary vascular prominence and bilateral parenchymal and left pleural opacities are similar to previous. There is no pneumothorax. Remaining support lines are stable. Signed: Kylah Ortiz MDReport Verified Date/Time: 07/22/2018 04:49:49 Reading Location: [address] Reading Room POCT-GLUCOSE METER 2018-07-22 03:10:00 Test Item Value Reference Range Interpretation Comments POC-GLUCOSE METER 131 mg/dL 70-110 H TESTED AT [facility] 6720 ([facility]) (test code = [place] 1538) [address] LACTIC ACID, [id number] 22:27:00 Test Item Value Reference Range Interpretation Comments LACTATE BLOOD ARTERIAL (2) 2.0 mmol/L 0.5-2.2 (BEAKER) (test code = 2874) [id number] 22:25:00 Test Item Value Reference Range Interpretation Comments MAGNESIUM (BEAKER) (test code = 2.2 mg/dL 1.6-2.6 627) SODIUM NA-STAT [id number] 22:07:00 Test Item Value Reference Range Interpretation Comments SODIUM (BEAKER) (test code = 381) 138 meq/L 135-148 POTASSIUM-STAT [id number] 22:07:00 Test Item Value Reference Range Interpretation Comments POTASSIUM (BEAKER) (test code = 4.1 meq/L 3.6-5.5 379) OXYGEN SATURATION, [id number] 22:07:00 Test Item Value Reference Range Interpretation Comments O2 SATURATION (MEASURED) (BEAKER) 59.7 % (test code = 1455) BLOOD GAS, [id number] 22:07:00 Test Item Value Reference Range Interpretation [...] (test code = 1819) 40.0 % GLUCOSE-STAT [id number] 22:07:00 Test Item Value Reference Range Interpretation Comments GLUCOSE RANDOM (BEAKER) (test code 113 mg/dL 70-110 H = 652) HGB/HCT (H&H) - STAT [id number] 22:07:00 Test Item Value Reference Range Interpretation Comments HEMOGLOBIN (BEAKER) (test code = 10.9 g/dL 13.0-16.8 L 410) HEMATOCRIT (BEAKER) (test code = 32.0 % 40.0-50.0 L 411) LACTIC ACID, [id number] 20:27:00 Test Item Value Reference Range Interpretation Comments LACTATE BLOOD ARTERIAL (2) 2.1 mmol/L 0.5-2.2 (BEAKER) (test code = 2874) [id number] 20:26:00 Test Item Value Reference Range Interpretation Comments POTASSIUM (BEAKER) (test code = 4.3 meq/L 3.5-5.1 379) [id number] 20:26:00 Test Item Value Reference Range Interpretation Comments GLUCOSE RANDOM (BEAKER) (test code 148 mg/dL 70-105 H = 652) BLOOD GAS, [id number] 20:14:00 Test Item Value Reference Range Interpretation [...] (test code = 1819) 60.0 % POCT-GLUCOSE [id number] 18:45:00 Test Item Value Reference Range Interpretation Comments POC-GLUCOSE METER 136 mg/dL 70-110 H TESTED AT [place] [address] (BEAKER) (test code = [facility] [place] 1538) [address] BLOOD GAS, [id number] 17:22:00 Test Item Value Reference Range Interpretation [...] (test code = 1819) 60.0 % POCT-GLUCOSE [id number] 16:40:00 Test Item Value Reference Range Interpretation Comments POC-GLUCOSE METER 159 mg/dL 70-110 H TESTED AT [facility] [address] (BEAKER) (test code = [place] 1538) [address] [id number] 13:26:00 Test Item Value Reference Range Interpretation Comments MAGNESIUM (BEAKER) 2.4 mg/dL 1.6-2.6 Specimen slightly (test code = 627) hemolyzed [id number] 13:26:00 Test Item Value Reference Range Interpretation Comments PHOSPHORUS (BEAKER) 2.4 mg/dL 2.3-4.7 Specimen slightly (test code = 604) hemolyzed BASIC METABOLIC [id number] 13:26:00 Test Item Value Reference Range Interpretation [...] APPLICABLE FOR DIALYSIS PATIEN TS. LACTIC ACID, [id number] 13:24:00 Test Item Value Reference Range Interpretation Comments LACTATE BLOOD 2.7 mmol/L 0.5-2.2 H Specimen sligh tly ARTERIAL (2) (BEAKER) hemoly zed (test code = 2874) [id number] 13:19:00 Test Item Value Reference Range Interpretation Comments PARTIAL THROMBOPLASTIN TIME 38.9 seconds 22.5-36.0 H (BEAKER) (test code = 760) PROTHROMBIN TIME/[id number] 13:18:00 Test Item Value Reference Range Interpretation [...] mechanical heart valves.CBC W/PLT COUNT & AUTO [id number] 13:15:00 Test Item Value Reference Range Interpretation [...] = 2801) RAD, CHEST, 1 VIEW, NON [id number] 13:14:00Reason for exam:->s/p cardiac surgeryShould this be [...] [place] Verified Date/Time: 07/21/2018 13:14:32 Reading Location: [facility] Radiology Reading Room BLOOD GAS, [id number] 13:10:00 Test Item Value Reference Range Interpretation [...] code = 1819) 60.0 % SODIUM NA-STAT [id number] 13:10:00 Test Item Value Reference Range Interpretation Comments SODIUM (BEAKER) (test code = 381) 134 meq/L 135-148 L GLUCOSE-STAT [id number] 13:10:00 Test Item Value Reference Range Interpretation Comments GLUCOSE RANDOM (BEAKER) (test code 165 mg/dL 70-110 H = 652) HGB/HCT (H&H) - STAT [id number] 13:10:00 Test Item Value Reference Range Interpretation Comments HEMOGLOBIN (BEAKER) (test code = 12.3 g/dL 13.0-16.8 L 410) HEMATOCRIT (BEAKER) (test code = 36.0 % 40.0-50.0 L 411) OXYGEN SATURATION, [id number] 13:09:00 Test Item Value Reference Range Interpretation Comments O2 SATURATION (MEASURED) (BEAKER) 70.2 % (test code = 1455) POTASSIUM-STAT [id number] 13:08:00 Test Item Value Reference Range Interpretation Comments POTASSIUM (BEAKER) (test code = 4.3 meq/L 3.6-5.5 379) [id number] 11:23:00 Test Item Value Reference Range Interpretation Comments ACTIVATED CLOTTING TIME 114 sec TEST ED AT [place] [address] ([facility]) (test code = [place] [address]) [id number] 11:23:00 Test Item Value Reference Range Interpretation Comments ACTIVATED CLOTTING TIME 719 sec TEST ED AT [place] [address] ([facility]) (test code = [place] [address]) [id number] 11:23:00 Test Item Value Reference Range Interpretation Comments ACTIVATED CLOTTING TIME 516 sec TEST ED AT [place] [address] ([facility]) (test code = [place] [address]) [address] [id number] 11:23:00 Test Item Value Reference Range Interpretation Comments ACTIVATED CLOTTING TIME 598 sec TEST ED AT [place] [address] ([facility]) (test code = [place] [address]) [address] BLOOD GAS, [id number] 11:21:00 Test Item Value Reference Range Interpretation [...] (test code = 1819) 100.0 % GLUCOSE-STAT [id number] 11:21:00 Test Item Value Reference Range Interpretation Comments GLUCOSE RANDOM (BEAKER) (test code 195 mg/dL 70-110 H = 652) HGB/HCT (H&H) - STAT [id number] 11:21:00 Test Item Value Reference Range Interpretation Comments HEMOGLOBIN (BEAKER) (test code = 11.3 g/dL 13.0-16.8 L 410) HEMATOCRIT (BEAKER) (test code = 33.0 % 40.0-50.0 L 411) CALCIUM, [id number] 11:20:00 Test Item Value Reference Range Interpretation Comments CALCIUM IONIZED (BEAKER) (test 1.19 mmol/L 1.12-1.27 code = 698) PH, BLOOD (BEAKER) (test code = 7.31 1810) SODIUM NA-STAT [id number] 11:18:00 Test Item Value Reference Range Interpretation Comments SODIUM (BEAKER) (test code = 381) 135 meq/L 135-148 POTASSIUM-STAT [id number] 11:18:00 Test Item Value Reference Range Interpretation Comments POTASSIUM (BEAKER) (test code = 4.4 meq/L 3.6-5.5 379) [id number] 11:14:00 Test Item Value Reference Range Interpretation Comments FIBRINOGEN LEVEL (BEAKER) (test 230 mg/dl 225-434 code = 658) [id number] 11:14:00 Test Item Value Reference Range Interpretation Comments PARTIAL THROMBOPLASTIN TIME 41.3 seconds 22.5-36.0 H (BEAKER) (test code = 760) PROTHROMBIN [id number] 11:13:00 Test Item Value Reference Range Interpretation Comments PROTIME (BEAKER) (test code = 19.8 seconds 11.7-14.7 H 759) INR (BEAKER) (test code = 370) 1.8 <=5.9 RECOMMENDED COUMADIN/WARFARIN INR THERAPY RANGESSTANDARD DOSE: 2.0 - 3.0 Includes: PROPHYLAXIS for venous thrombosis, systemic embolization; TREATMENT for venous thrombosis and/or pulmonary embolus.HIGH RISK: Target INR is 2.5-3.5 for patients with mechanical heart valves.PLATELET [id number] 10:56:00 Test Item Value Reference Range Interpretation Comments PLATELET COUNT (BEAKER) (test code 84 K/CU MM 150-450 L = 756) BLOOD GAS, [id number] 10:44:00 Test Item Value Reference Range Interpretation [...] code = 1819) 100.0 % SODIUM NA-STAT [id number] 10:44:00 Test Item Value Reference Range Interpretation Comments SODIUM (BEAKER) (test code = 381) 134 meq/L 135-148 L GLUCOSE-STAT [id number] 10:44:00 Test Item Value Reference Range Interpretation Comments GLUCOSE RANDOM (BEAKER) (test code 232 mg/dL 70-110 H = 652) HGB/HCT (H&H) - STAT [id number] 10:44:00 Test Item Value Reference Range Interpretation Comments HEMOGLOBIN (BEAKER) (test code = 8.9 g/dL 13.0-16.8 L 410) HEMATOCRIT (BEAKER) (test code = 26.0 % 40.0-50.0 L 411) CALCIUM, [id number] 10:44:00 Test Item Value Reference Range Interpretation Comments CALCIUM IONIZED (BEAKER) (test 1.05 mmol/L 1.12-1.27 L code = 698) PH, BLOOD (BEAKER) (test code = 7.32 1810) POTASSIUM-STAT [id number] 10:43:00 Test Item Value Reference Range Interpretation Comments POTASSIUM (BEAKER) (test code = 5.3 meq/L 3.6-5.5 379) POTASSIUM-STAT [id number] 10:16:00 Test Item Value Reference Range Interpretation Comments POTASSIUM (BEAKER) (test code = 6.8 meq/L 3.6-5.5 HH 379) HGB/HCT (H&H) - STAT [id number] 10:12:00 Test Item Value Reference Range Interpretation Comments HEMOGLOBIN (BEAKER) (test code = 8.1 g/dL 13.0-16.8 L 410) HEMATOCRIT (BEAKER) (test code = 24.0 % 40.0-50.0 L 411) BLOOD GAS, [id number] 10:11:00 Test Item Value Reference Range Interpretation [...] (test code = 1819) 70.0 % GLUCOSE-STAT [id number] 10:11:00 Test Item Value Reference Range Interpretation Comments GLUCOSE RANDOM (BEAKER) (test code 236 mg/dL 70-110 H = 652) SODIUM NA-STAT [id number] 10:11:00 Test Item Value Reference Range Interpretation Comments SODIUM (BEAKER) (test code = 381) 131 meq/L 135-148 L BLOOD GAS, [id number] 09:44:00 Test Item Value Reference Range Interpretation [...] code = 1819) 70.0 % SODIUM NA-STAT [id number] 09:44:00 Test Item Value Reference Range Interpretation Comments SODIUM (BEAKER) (test code = 381) 133 meq/L 135-148 L POTASSIUM-STAT [id number] 09:44:00 Test Item Value Reference Range Interpretation Comments POTASSIUM (BEAKER) (test code = 5.9 meq/L 3.6-5.5 H 379) GLUCOSE-STAT [id number] 09:44:00 Test Item Value Reference Range Interpretation Comments GLUCOSE RANDOM (BEAKER) (test code 204 mg/dL 70-110 H = 652) HGB/HCT (H&H) - STAT [id number] 09:44:00 Test Item Value Reference Range Interpretation Comments HEMOGLOBIN (BEAKER) (test code = 8.2 g/dL 13.0-16.8 L 410) HEMATOCRIT (BEAKER) (test code = 24.0 % 40.0-50.0 L 411) SODIUM NA-STAT [id number] 09:16:00 Test Item Value Reference Range Interpretation Comments SODIUM (BEAKER) (test code = 381) 132 meq/L 135-148 L POTASSIUM-STAT [id number] 09:16:00 Test Item Value Reference Range Interpretation Comments POTASSIUM (BEAKER) (test code = 5.6 meq/L 3.6-5.5 H 379) HGB/HCT (H&H) - STAT [id number] 09:16:00 Test Item Value Reference Range Interpretation Comments HEMOGLOBIN (BEAKER) (test code = 8.1 g/dL 13.0-16.8 L 410) HEMATOCRIT (BEAKER) (test code = 24.0 % 40.0-50.0 L 411) BLOOD GAS, [id number] 09:15:00 Test Item Value Reference Range Interpretation [...] (test code = 1819) 80.0 % GLUCOSE-STAT [id number] 09:15:00 Test Item Value Reference Range Interpretation Comments GLUCOSE RANDOM (BEAKER) (test code 207 mg/dL 70-110 H = 652) [id number] 08:51:00 Test Item Value Reference Range Interpretation Comments ACTIVATED CLOTTING TIME 577 sec TEST ED AT [facility] 67[address] (BEAKER) (test code = [place] [address]) [address] BLOOD GAS, [id number] 08:20:00 Test Item Value Reference Range Interpretation [...] (test code = 1819) 100.0 % GLUCOSE-STAT [id number] 08:20:00 Test Item Value Reference Range Interpretation Comments GLUCOSE RANDOM (BEAKER) (test code 132 mg/dL 70-110 H = 652) SODIUM NA-STAT [id number] 08:19:00 Test Item Value Reference Range Interpretation Comments SODIUM (BEAKER) (test code = 381) 138 meq/L 135-148 POTASSIUM-STAT [id number] 08:19:00 Test Item Value Reference Range Interpretation Comments POTASSIUM (BEAKER) (test code = 3.8 meq/L 3.6-5.5 379) HGB/HCT (H&H) - STAT [id number] 08:19:00 Test Item Value Reference Range Interpretation Comments HEMOGLOBIN (BEAKER) (test code = 14.2 g/dL 13.0-16.8 410) HEMATOCRIT (BEAKER) (test code = 42.0 % 40.0-50.0 411) POCT-GLUCOSE [id number] 06:27:00 Test Item Value Reference Range Interpretation Comments POC-GLUCOSE METER 130 mg/dL 70-110 H TESTED AT [facility] 6720 (BEAKER) (test code = [place] [place] [facility] [place] 1538) [address] CT, CHEST, WITHOUT [id number] 17:18:00preop AVR ACB assess for calcification aortaAddendum BeginsREPORT STATUS:A Addendum: I agree with the previously described non vascular findings. Signed: Kai Hightower MDRmaryort Verified Date/Time: 07/09/2018 17:18:52 Reading Location: [facility] P048 Angio Body Reading RoomAddendum EndsFINAL REPORT CT [...] regarding the non- vascular findings by the Highway Maintenance Crew Worker Radiologist. Signed: Michele Lua Verified Date/Time: 07/09/2018 14:59:04 Reading Location: [place] [address] Cardiology MRI RAD, CHEST, 2 [id number] 14:54:00Reason for exam:->pre opFINAL REPORT Chest, 2 views. Clinical History: pre op Comparison Study: None Findings: The heart and lungs are within normal limits. The aorta is tortuous. The pleural spaces are clear. No significant bony or soft tissue abnormalities are seen. Impression: No active cardiopulmonary disease. Signed: Mukesh Mcmanus Verified Date/Time: 07/09/2018 14:54:20 Reading Location:[facility] [id number] Consult Reading Room HEMOGLOBIN [id number] 14:40:00 Test Item Value Reference Range Interpretation Comments HEMOGLOBIN A1C (BEAKER) (test code = 6.4 % 4.3-6.1 H 368) BASIC METABOLIC [id number] 13:47:00 Test Item Value Reference Range Interpretation [...] NOT APPLICABLE FOR DIALYSIS PATIEN TS. PROTHROMBIN TIME/[id number] 13:36:00 Test Item Value Reference Range Interpretation [...] mechanical heart valves.CBC W/PLT COUNT & AUTO [id number] 13:28:00 Test Item Value Reference Range Interpretation [...] % 0-1 PERCENT (BEAKER) (test code = 6711)
[2023-01-28 13:37] VITALS: BMI 43.7
[2023-01-28] MEDS ORDERED: INFLUENZA VACCINE (for 6+ mo) 0.5 ML DOSE IMVAC ONE (14:00)
[2023-01-28] MEDS ORDERED: PNEUMOCOCCAL VACCINE 0.5 ML IMVAC ONE (14:00)
[2023-01-28] MEDS: CEFAZOLIN 1 GM in NA CHLORIDE 0.9% 50 ML IVPB SCH (16:11)
--- NOTE | 2023-01-28 19:28 | CON ---
Date of Consultation: 01/28/2023 Chief Complaint: Knee pain. Reason For Consultation: Medical management. History Of Present Illness: This is an 82-year-old patient of mine who had knee surgery done by Dr. Montes today, and after the surgery, during postoperative time, medical consultation was requested. I saw the patient this evening. He was sitting in the bed. Denied any complaints. Reported that he already has started to ambulate with Physical Therapy today. He denies any knee pain at present time. No nausea, vomiting. No abdominal pain. Last bowel movement was day before yesterday. No chest pain. No shortness of breath. Allergies: FENOFIBRATE CAUSING ABNORMAL LIVER FUNCTION TESTS. Medications: Current medication list reviewed. His outpatient medication list is as below. 1. Amlodipine 5 mg daily in morning. 2. Aspirin 81 mg daily. 3. Duloxetine 20 mg daily. 4. Levothyroxine 125 mcg daily. 5. Metformin 500 mg daily. 6. Metoprolol tartrate 50 mg 2 times a day. 7. Rosuvastatin 5 mg daily at bedtime. 8. Gabapentin 300 mg three times a day. 9. Levetiracetam 500 mg two times a day. Review of Systems: Musculoskeletal: As mentioned above. All other systems reviewed are negative. Past Medical History: Significant for COVID-19 infection on May 07, 2020; Alzheimer disease; allergic rhinitis; throat cancer; hypothyroidism; type 2 diabetes mellitus; hypertension; mixed hyperlipidemia; coronary artery disease; paroxysmal atrial fibrillation; aortic stenosis; abdominal aortic aneurysm; aortic atherosclerosis; carotid artery stenosis; bilateral gallstones; diverticulosis; kidney stone; osteoarthritis at multiple sites; depression. Past Surgical History: Cataract surgery, tonsillectomy, coronary artery bypass surgery July 2018, aortic valve replacement surgery July 2018, hernia repair, lefthip and right knee surgery. Family History: Father , had coronary artery disease. Mother, hypertension, diabetes. Brother, melanoma. Sister , had stroke and hepatitis C. Social History: Prior history of smoking, not at present time. Use of alcohol negative. Physical Examination: Vital Signs: Temperature 97.1, pulse 83, respiratory rate 18, blood pressure 142/78, oxygen saturation 94%. Height 5 feet 8 inches, weight 288 pounds, which is not accurate as the patient does not weigh this much and I will have to have nursing staff check his weight again and document correct weight. General: Awake, alert, oriented, not in distress. HEENT: Head atraumatic, normocephalic. Conjunctivae nonerythematous. Sclerae white. Mouth, no thrush or edema noted. Ears/Nose, no mass, lesion, discharge noted. Neck: Supple. No JVD, lymph nodes, bruit, thyromegaly noted. Lungs: Bilateral good equal air entry. Clear to auscultation. No rhonchi. No rales. Heart: Normal heart sounds, no murmur or gallop. Abdomen: Soft, bowel sounds normal. No guarding, rigidity, tenderness, mass, hepatosplenomegaly, distention, or bruit noted. Extremities: No leg edema. No calf tenderness. Left lower extremity has surgical dressing present. Skin: No rash, ulcer, cellulitis. Lymphatics: No lymph node enlargement in neck, supraclavicular, infraclavicular region. Neuro: No focal neurological deficit. Chest: Unremarkable. External Genitalia: Deferred. Rectal: Deferred. Labs: On 01/24/2023, white count 7.2, hemoglobin 16.5, platelets 171. Sodium 136, potassium 4.8, chloride 103, bicarb 29, BUN 16, creatinine 1.11, glucose 136. Liver function tests unremarkable. Urinalysis unremarkable. Impression: 1. Coronary artery disease. 2. Hypertension. 3. Mixed hyperlipidemia. 4. Type 2 diabetes mellitus. 5. Alzheimer's disease. 6. Osteoarthritis, multiple sites. 7. Depression. 8. Diverticulosis. 9. Hypothyroidism. 10. Paroxysmal atrial fibrillation. 11. Aortic atherosclerosis. Plan: We will go ahead and continue his diabetes medication which is metformin. For hypothyroidism, he takes levothyroxine. We will continue that per order. For hypertension, he is on amlodipine and metoprolol and will continue medications per order, monitor blood pressure while in hospital and if necessary, will consider to adjust medication. For hyperlipidemia, he takes rosuvastatin 5 mg daily, which is not listed in the home medication list. He should continue that upon discharge from the hospital. Coronary artery disease problem is stable. Continue aspirin. The patient is currently on Lovenox for DVT prophylaxis. I will see him tomorrow morning for followup. NIKI/MODL Voice ID: [id number] Report ID: [id number] MTDPrudencio
[2023-01-28] MEDS: HYDROCODONE/APAP 7.5/325 MG TAB PO PRN (21:57)
[2023-01-28] MEDS: METOPROLOL TAR 25 MG TAB PO SCH (21:58)
[2023-01-28] MEDS: levETIRAcetam 500 MG TAB PO SCH (21:58)
[2023-01-28] MEDS: GABAPENTIN 300 MG CAP PO SCH (21:58)
[2023-01-28] MEDS: DULOXETINE 20 MG CAP PO SCH (22:01)
[2023-01-29] MEDS: CEFAZOLIN 1 GM in NA CHLORIDE 0.9% 50 ML IVPB SCH ×2 (00:03→10:17)
[2023-01-29 00:16] VITALS: O2SAT 93
[2023-01-29 02:45] LABS: Hematocrit 42.8 % (39.6-49.0)
[2023-01-29] MEDS: ENOXAPARIN 30 MG/0.3 ML SQ SCH ×3 (05:22→19:50)
[2023-01-29] MEDS: LEVOTHYROXINE SOD 0.125 MG TAB PO SCH (05:52)
[2023-01-29] MEDS ORDERED: D50W 25 GM/50 ML SYRINGE IV PRN (09:18)
[2023-01-29] MEDS ORDERED: GLUCAGON 1 MG/VIAL IM PRN (09:18)
[2023-01-29] MEDS: levETIRAcetam 500 MG TAB PO SCH ×2 (09:22→19:46)
[2023-01-29] MEDS: DULOXETINE 20 MG CAP PO SCH ×2 (09:22→19:46)
[2023-01-29] MEDS: ASPIRIN 81 MG CHEWABLE TABLET PO SCH (09:22)
[2023-01-29] MEDS: AMLODIPINE 5 MG TAB PO SCH (09:23)
[2023-01-29] MEDS: METOPROLOL TAR 25 MG TAB PO SCH ×2 (09:23→19:46)
[2023-01-29] MEDS: METFORMIN HCL 500 MG TAB PO SCH (09:23)
[2023-01-29] MEDS: GABAPENTIN 300 MG CAP PO SCH ×3 (09:23→19:46)
[2023-01-29] MEDS ORDERED: INFLUENZA VACCINE (for 6+ mo) 0.5 ML DOSE IMVAC ONE (10:00)
[2023-01-29] MEDS: ACETAMINOPHEN 500 MG TAB PO PRN ×2 (10:46→19:45)
[2023-01-29] MEDS ORDERED: PNEUMOCOCCAL VACCINE 0.5 ML IMVAC ONE (12:00)
[2023-01-29] MEDS: INSULIN REGULAR (HUMAN) 100 UNIT/ML SQ SCH ×3 (12:13→21:13)
--- NOTE | 2023-01-29 12:40 | PN ---
Date of Progress Note: 01/29/2023 Subjective: Patient was seen this morning for followup. No new complaints or problems reported by rissa lópez. He was sitting at the bedside, denied any complaints. Denies any pain in his knees. No kandice st pain, shortness of breath. No nausea, vomiting. Objective: Vital Signs: Reviewed. HEENT: Unremarkable. Lungs: Clear to auscultation. Heart: Sounds normal. Abdomen: Soft. Bowel sounds normal. No guarding, rigidity, tenderness, distention. Extremities: Left leg has surgical dressing present. Right leg, no edema. Impression: 1.Hypertension. 2.Type 2 diabetes mellitus. 3.Hyperlipidemia. 4.Coronary artery disease. Plan: Continue current blood pressure medication and diabetes medication, which is metformin. Finge rstick blood sugar readings reviewed. Patient is hemodynamically stable. Discharge planning prudence garber to Dr. Montes. NIKI/MODL Voice ID: [id number] Report ID: [id number]
--- NOTE | 2023-01-29 20:08 | P.PN ---
Date of Service: 01/29/23 I was told patient's son is very concerned patient has a high risk of fall at home, he lives alone and has no social support and may be unable to carry out his ADLs. So he is very concerned about the discharge. Patient is currently stable with stable vitals. Patient attending physician Dr. Jones is not available for the rest of the week. Case discussed with rn labor and delivery Dr. Harris. Patient is transferred to the hospitalist service to resume care. Will reconsult social service to evaluate [facility] pending patient's consent. Continue current medications.
[2023-01-30 02:37] LABS: Hematocrit 37.8 % (39.6-49.0)
[2023-01-30] MEDS: LEVOTHYROXINE SOD 0.125 MG TAB PO SCH (05:42)
[2023-01-30] MEDS: INSULIN REGULAR (HUMAN) 100 UNIT/ML SQ SCH ×4 (07:30→20:40)
[2023-01-30] MEDS: METFORMIN HCL 500 MG TAB PO SCH (09:41)
[2023-01-30] MEDS: ACETAMINOPHEN 500 MG TAB PO PRN (09:41)
[2023-01-30] MEDS: METOPROLOL TAR 25 MG TAB PO SCH ×2 (09:42→19:52)
[2023-01-30] MEDS: levETIRAcetam 500 MG TAB PO SCH ×2 (09:42→19:53)
[2023-01-30] MEDS: GABAPENTIN 300 MG CAP PO SCH ×3 (09:42→19:52)
[2023-01-30] MEDS: AMLODIPINE 5 MG TAB PO SCH (09:42)
[2023-01-30] MEDS: DULOXETINE 20 MG CAP PO SCH ×2 (09:42→19:52)
[2023-01-30] MEDS: ASPIRIN 81 MG CHEWABLE TABLET PO SCH (09:43)
[2023-01-30] MEDS: ENOXAPARIN 30 MG/0.3 ML SQ SCH ×2 (09:43→21:30)
--- NOTE | 2023-01-30 11:13 | PN ---
Last night, I was notified by our discharge team that the patient had been discharged and the crow garber physician had left out of town and consulting physician was not available and the patient's son shayan duran it was unsafe to take the patient home. I was asked to intervene in this situation. I contacted the son, spoke to him in detail about his concerns and basically the patient was deemed unsafe ale james he has increasing episodes of falling at home and the son stated that there would be nobody to look after him at home when he got there. He was concerned about the safety of the patient. Advised him that we would keep the patient in the hospital until arrangements for an assisted living facility co uld be made and they have agreed to that. I went and saw the patient today. Medically, he is doing very well. He has no complaint. I do not see him as a treating physician just as a social visit and we put in a consult for Social Work to help arrange with discharge planning. The patient is clinicayden aldridgey doing well. LUCY/ALFRED Voice ID: [id number] Report ID: [id number]
[2023-01-31] MEDS: LEVOTHYROXINE SOD 0.125 MG TAB PO SCH (06:39)
[2023-01-31] MEDS: INSULIN REGULAR (HUMAN) 100 UNIT/ML SQ SCH ×4 (07:30→21:00)
[2023-01-31] MEDS: METFORMIN HCL 500 MG TAB PO SCH (08:00)
[2023-01-31] MEDS: levETIRAcetam 500 MG TAB PO SCH ×2 (08:12→20:20)
[2023-01-31] MEDS: ASPIRIN 81 MG CHEWABLE TABLET PO SCH (08:12)
[2023-01-31] MEDS: GABAPENTIN 300 MG CAP PO SCH ×3 (08:13→20:21)
[2023-01-31] MEDS: METOPROLOL TAR 25 MG TAB PO SCH ×2 (08:13→20:20)
[2023-01-31] MEDS: AMLODIPINE 5 MG TAB PO SCH (08:13)
[2023-01-31] MEDS: DULOXETINE 20 MG CAP PO SCH ×2 (08:13→20:20)
[2023-01-31] MEDS: ENOXAPARIN 30 MG/0.3 ML SQ SCH ×2 (08:16→21:00)
--- NOTE | 2023-01-31 10:24 | PN ---
Date of Progress Note: 01/31/2023 Subjective: Patient was seen this morning for followup. He was lying in bed not in any distress. D enies any complaints. No chest pain, shortness of breath, nausea, vomiting. His pain is under good control after the left knee replacement surgery. Last time I saw him was day before yesterday and I was under understanding that patient was going to be discharged. Medically, he was stable for discha rge and Dr. Montes had released him to go home and foster care social worker had placed a note that as a part of preop paperwork and package, the patient already had arrangements for [facility] and home phy sical therapy, so this was the plan as I understood. Around 9:30 p.m. on 01/29/2023, Dr. Omer dumont d and informed me that the patient had not gone home and Dr. Montes is out of town for next 2 week s. Family does not want the patient to go home because they are worrying about safety concern and th ey want patient to go to assisted. The patient will be in the hospital until arrangements gets m jamal. So yesterday, the patient was seen by hospitalist team on my behalf, and today morning, I saw h im for the followup. Patient reports last bowel movement a couple of days ago, so we will go ahead a nd give him some stool softener/laxative today. Objective: Vital Signs: Reviewed. HEENT: Unremarkable. Lungs: Clear to auscultation. Cardiac: Heart sounds normal. Abdomen: Soft. Bowel sounds normal. No guarding, rigidity, tenderness, distention. Extremities: No leg edema. Laboratory Data: Fingerstick blood sugar readings reviewed and I have ordered CBC and chemistry to b e done today. We will follow up on those results. Impression: 1.Hypertension. 2.Hyperlipidemia. 3.Coronary artery disease. 4.Type 2 diabetes mellitus. 5.Status post left knee arthroplasty. Plan: We will continue Lovenox for DVT prophylaxis. Continue current home medications for hypertens ion and diabetes as well as for hypothyroidism. Physical therapy was in the room when I saw him and they are working with the patient. Social service is working on discharge planning. As soon as arra nghermes gets made, the patient should be able to go to intermediate facility. Medically, he is s table for discharge. NIKI/MODL Voice ID: [id number] Report ID: [id number]
[2023-01-31 10:46] LABS: Absolute Lymphocytes (CBC) 1.8 K/uL (0.7-4.9); MCV 95.6 fL (80-100); MPV 9.4 fL (7.6-11.3); Platelets 151 thou/uL (152-406); RBC Red Blood Cell Count 4.28 M/uL (4.33-5.43)
[2023-01-31 10:49] LABS: Hematocrit 40.4 % (39.6-49.0)
[2023-01-31 10:59] LABS: Magnesium 2.3 mg/dL (1.6-2.4); Potassium 3.9 mEq/L (3.5-5.1)
[2023-01-31] MEDS ORDERED: POTASSIUM 25 MEQ EFFERV TAB PO ONE (11:00)
[2023-01-31] MEDS ORDERED: MAGNESIUM HYDROXIDE 8% 30 ML PO ONE (11:17)
--- NOTE | 2023-01-31 15:23 | P.PN ---
Subjective Date of Service: 01/31/23 Chief Complaint: Left knee pain Subjective: Improving Patient seen with family at bedside. Denies any pain in left knee. Continue supportive care. Review of Systems General: Unremarkable Eyes: Unremarkable ENT: Unremarkable Respiratory: Unremarkable Cardiovascular: Unremarkable Gastrointestinal: Unremarkable Genitourinary: Unremarkable Musculoskeletal: Other (Left knee pain) Integumentary: Unremarkable Neurological: Unremarkable Lymphatics: Unremarkable Physical Examination - Vital Signs Temperature: 97.8 F Blood Pressure: 123/69 Pulse: 67 Respirations: 18 Pulse Ox (%): 96 - Physical Exam General: Alert, In no apparent distress, Oriented x3, Cooperative HEENT: Atraumatic, PERRLA, EOMI Neck: Supple, JVD not distended Respiratory: Clear to auscultation bilaterally, Normal air movement Cardiovascular: No edema, Regular rate/rhythm, Normal S1 S2 Capillary refill: <2 Seconds Gastrointestinal: Normal bowel sounds, No tenderness Musculoskeletal: No clubbing, No tenderness Integumentary: No rashes, Other (Left knee incision ) Neurological: Normal speech, Normal tone, Normal affect Lymphatics: No axilla or inguinal lymphadenopathy - Studies Laboratory Data (last 24 hrs) 01/31/23 01/31/23 01/31/23 09:28 09:28 09:28 WBC 9.20 Hgb 14.0 13.9 Hct 41.0 40.4 Plt Count 151 L Sodium 138 Potassium 3.9 BUN 33 H Creatinine 0.98 Glucose 209 H Magnesium 2.3 Assessment And Plan - Plan --S/p Left knee replacement. No signs and symptoms of infection noted. Patient reports minimal pain. Continue current pain medication regimen. Orthopedic surgery on board. Continue supportive care.. --Hypertension. Stable. Continue home med --Mixed hyperlipidemia\CAD. Continue home meds --Type 2 diabetes mellitus. BS monitoring with s\s insulin --Alzheimer's disease.Continue supportive care --DVT prophylaxis with Lovenox subQ Discharge Plan: Home Plan to discharge in: 48 Hours Physician Review: Patient Assessed, Agree with Above Assessment and Plan Critical Care: No
[2023-01-31] MEDS ORDERED: ROSUVASTATIN 5 MG TAB PO SCH (21:00)
[2023-01-31] MEDS ORDERED: DOCUSATE NA/SENNA CONC 1 TAB PO SCH (21:00)
[2023-01-31] MEDS: HYDROCODONE/APAP 7.5/325 MG TAB PO PRN (22:38)
[2023-02-01 04:16] LABS: Absolute Lymphocytes (CBC) 2.1 K/uL (0.7-4.9); Lymphocytes % 26.6 % (15.3-44.8); MCV 95.7 fL (80-100); MPV 10.1 fL (7.6-11.3); Platelets 163 thou/uL (152-406); RBC Red Blood Cell Count 4.07 M/uL (4.33-5.43)
[2023-02-01 04:28] LABS: Potassium 4.4 mEq/L (3.5-5.1)
[2023-02-01] MEDS: LEVOTHYROXINE SOD 0.125 MG TAB PO SCH (06:40)
[2023-02-01] MEDS: INSULIN REGULAR (HUMAN) 100 UNIT/ML SQ SCH (07:30)
[2023-02-01] MEDS: METOPROLOL TAR 25 MG TAB PO SCH (07:53)
[2023-02-01] MEDS: AMLODIPINE 5 MG TAB PO SCH (07:53)
[2023-02-01] MEDS: ASPIRIN 81 MG CHEWABLE TABLET PO SCH (07:53)
[2023-02-01] MEDS: GABAPENTIN 300 MG CAP PO SCH (07:53)
[2023-02-01] MEDS: METFORMIN HCL 500 MG TAB PO SCH (07:53)
[2023-02-01] MEDS: levETIRAcetam 500 MG TAB PO SCH (07:53)
[2023-02-01] MEDS: DULOXETINE 20 MG CAP PO SCH (07:53)
[2023-02-01] MEDS: ENOXAPARIN 30 MG/0.3 ML SQ SCH (07:55)
[2023-02-01 10:06] VITALS: BP 143/18; TEMP 987.2
--- NOTE | 2023-02-01 11:07 | DS ---
Date of Discharge: 02/01/2023 Disposition: Discharged to go home. Physical Examination: HEENT: Unremarkable. Lungs: Clear to auscultation. Heart: Sounds normal. Abdomen: Soft. Bowel sounds normal. No guarding, rigidity, tenderness, distention. Extremities: No leg edema. Discharge Medications And Instructions: Continue all prior home medications as below. 1.Change aspirin 325 mg take 1 tablet by mouth daily to lower dose to aspirin 81 mg take 1 tablet by mouth daily, take it with food. 2.Amlodipine 5 mg take 1 tablet by mouth daily in morning. 3.Duloxetine 20 mg 1 capsule by mouth daily. 4.Gabapentin 300 mg take 1 capsule by mouth 3 times a day. 5.Levetiracetam 500 mg take 1 tablet by mouth 2 times a day. 6.Levothyroxine 125 mcg take 1 tablet by mouth daily. 7.Metformin 500 mg take 1 tablet by mouth daily in morning with breakfast. 8.Metoprolol tartrate 50 mg take 1 tablet by mouth 2 times a day. 9.Rosuvastatin 5 mg take 1 tablet by mouth daily at bedtime. 10.Follow up with Dr. Montes as per his instruction. 11.Follow up at my office next week. 12.Take Tylenol 500 mg 4 times a day as needed for mild pain. 13.Take pain medication which is hydrocodone as prescribed by Dr. Montes for more intense pain. 14.Take fvdn-zwy-jumdslh stool softener/laxative Senokot-S 2 tablets by mouth 2 times a day, hold if you have diarrhea. Laboratory Data: Initial blood work on 01/24/2023; white count 7.2, hemoglobin 16.5, platelets 171, and last CBC today white count 7.9, hemoglobin 13.3, and platelets 163. Last chemistry today; sodium 138, potassium 4.4, chloride 106, bicarb 28, BUN 27, creatinine 0.91, glucose 146. Sodium 136, pota ssium 4.8, chloride 103, bicarb 29, BUN 16, creatinine 1.11, glucose 136. Liver function tests unrem arkable. Hospital Course: This is an 82-year-old male patient who had left knee arthroplasty surgery done bec ause of osteoarthritis of left knee by Dr. Montes on 01/28/2023 and postoperatively consultation w as requested by Dr. Montes for me to see him for medical management. I saw him on 01/28/2023. Th e patient was medically stable. Dr. Montes's plan was to discharge patient to go home next day an d medically patient was stable for discharge. From his point of view, the patient was stable for dis charge and as a part of preop arrangements as I understand, the patient had [facility] set up wi th home physical therapy and unfortunately patient did not go home as planned because patient's son d id not feel comfortable patient coming home after the surgery and wanted the patient to go to snf and this was unexpectedly announced by family member on the day of discharge, which is 01/30/20, so patient was not discharged and subsequently Dr. Montes left town, so I continue to follow u p. On 01/30/2023, hospitalist team saw the patient on my absence and then I followed up yesterday an d today. Social Service was involved for discharge planning and they communicated with the patient's son and options of snf versus assisted care facility or caregiver services at home. All th ose options were given to the family members and they were also told that the patient will have to pa y either most of it or all of it as insurance company will not cover those services. So yesterday, t he patient's son informed Social Service that they are in process of taking him home and they will be making arrangements between family member and all the care provider service information was given to them by Social Service and son requested that he wanted to meet planner/scheduler today at 9 o'clock and then they will take him home. This morning at 9 o'clock, planner/scheduler went into the room a nd son decided not to come to the hospital because he did not need any help or assistance from Social Service and did not have any questions as I was told by Social Service and family is willing to go a head and take him back home and the patient informed me that his 1 son who lives here but other son christel zee in [place] will be here in town for next 2 weeks to assist him and patient feels very co mfortable going home and he actually wants to go home and does not want to go to any assisted care fa cility. Medically, he is stable for discharge. Final Diagnoses: 1.Osteoarthritis, left knee, status post left knee arthroplasty. 2.Coronary artery disease. 3.Hypertension. 4.Mixed hyperlipidemia. 5.Type 2 diabetes mellitus. 6.Alzheimer disease. 7.Hypothyroidism. 8.Diverticulosis. 9.Aortic atherosclerosis. NIKI/MODL Voice ID: [id number] Report ID: [id number]
== END 2023-02-01 11:58 | disposition home or self-care (01) ==
LOC: OR 05:59 → 2ND 11:17
PROVIDERS: ADMIT Orthopaedic Surgery; ATTEND Orthopaedic Surgery
PROC: 0SRD069 Replacement of Left Knee Joint with Oxidized Zirconium on Polyethylene Synthetic Substitute, Cemented, Open Approach (ICD-10-PCS; principal; 2023-01-28 07:00)
DX: M17.12 Unilateral primary osteoarthritis, left knee (principal); G30.9 Alzheimer's disease, unspecified; F02.80 Dementia in other diseases classified elsewhere, unspecified severity, without behavioral disturbance, psychotic disturbance, mood disturbance, and anxiety; E03.9 Hypothyroidism, unspecified; E11.9 Type 2 diabetes mellitus without complications; I10 Essential (primary) hypertension; E78.2 Mixed hyperlipidemia; I25.10 Atherosclerotic heart disease of native coronary artery without angina pectoris; I48.0 Paroxysmal atrial fibrillation; M19.90 Unspecified osteoarthritis, unspecified site; N20.0 Calculus of kidney; I35.0 Nonrheumatic aortic (valve) stenosis; Z86.16 Personal history of COVID-19; I70.0 Atherosclerosis of aorta; Z23 Encounter for immunization
CPT/HCPCS: 85025 ×3; 81001; 80048 ×2; 36415 ×3; 83735; 85610; 82947 ×15; 88304; 88311; 85730; 85018 ×3; 85014 ×3; 80053; 90471 ×2; 90732; 97110 ×4; 97116 ×6; 97139; 97161; 97530 ×3; 94010; 27447; J1815 ×2; Q2035; J2704 ×4; A4216; J0171 ×2; J2001 ×5; J1650 ×7; J3010 ×2; J1100 ×2; G0378 ×6; J7030; J0690 ×3; G0379

== ENCOUNTER 2023-09-01 13:46 | Observation (INO) | payer OTHER ==
[2023-09-01 14:49] VITALS: BMI 38.2
[2023-09-01] MEDS: PNEUMOCOCCAL VACCINE 0.5 ML IMVAC ONE (15:00)
[2023-09-01 15:16] LABS: Absolute Basophils 0.1 K/uL (0-0.5); Absolute Eosinophils 0.5 K/uL (0-0.5); Absolute Lymphocytes (CBC) 1.5 K/uL (0.7-4.9); Absolute Monocytes 0.5 K/uL (0.1-1.3); Absolute Neutrophil 5.4 K/uL (1.8-8.0); Basophils % 1.4 % (0-1.3); Hematocrit 43.2 % (39.6-49.0); Hemoglobin 14.3 g/dL (13.6-17.9); Lymphocytes % 18.6 % (15.3-44.8); MCH 30.2 pg (27.0-35.0); MCHC 33.1 g/dL (32.0-36.0); MCV 91.4 fL (80-100); MPV 8.7 fL (7.6-11.3); Monocytes % 6.8 % (3.3-12.3); Neutrophils % 67.2 % (41.7-73.7); Platelets 211 thou/uL (152-406); RBC Red Blood Cell Count 4.72 M/uL (4.33-5.43); Red Cell Distribution Width 15.3 % (12.1-15.2)
--- NOTE | 2023-09-01 15:21 | RAD REPORT ---
EXAM DESCRIPTION: Gwen Damian (2 Views)09/01/2023 2:49 pm CLINICAL HISTORY: Chest wall pain. Abscess COMPARISON: March 2023 FINDINGS: Postsurgical changes involve chest The lungs appear clear of acute infiltrate. The heart is mildly enlarged IMPRESSION: No acute abnormalities displayed
[2023-09-01 15:33] LABS: Albumin 3.2 g/dL (3.4-5.0); Albumin/Globulin Ratio 0.7 (1.1-1.8); Anion Gap 4.6 mEq/L (5.0-15.0); Bilirubin Total 0.4 mg/dL (0.2-1.0); Globulin 4.5 g/dL (2.3-3.5); Magnesium 1.9 mg/dL (1.6-2.4); Potassium 4.6 mEq/L (3.5-5.1); Protein, Total 7.7 g/dL (6.4-8.2)
[2023-09-01] MEDS: CEFTRIAXONE 1,000 MG in NA CHLORIDE 0.9% 50 ML IVPB SCH (20:52)
[2023-09-01] MEDS: DOXYCYCLINE 100 MG in NA CHLORIDE 0.9% 100 ML IVPB SCH (20:52)
[2023-09-01] MEDS: METOPROLOL TAR 25 MG TAB PO SCH (21:19)
[2023-09-01] MEDS: GABAPENTIN 300 MG CAP PO SCH (21:20)
[2023-09-01] MEDS: ROSUVASTATIN 5 MG TAB PO SCH (21:20)
[2023-09-01] MEDS: levETIRAcetam 500 MG TAB PO SCH (21:20)
--- NOTE | 2023-09-01 23:02 | HP ---
Date of Admission: 09/01/2023 Chief Complaint: Abscess. History Of Present Illness: This is an 83-year-old male patient who came into office last week with a history of cyst over right lower anterior chest wall area for many years, but it got infected, so he came to see me last week and was diagnosed as having infected sebaceous cyst and was started on Augmentin. There was no evidence of any abscess. Today, patient comes in reported that he has been taking antibiotic as it was and after he saw me within a day or 2 days after he saw me, his area opened up and started to drain some greenish colored discharge and he came into see me since he was not getting any better. After he was evaluated at office, he was admitted to the hospital. He denies any fever, chills, nausea, vomiting, or diarrhea. Allergies: FENOFIBRATE CAUSING ABNORMAL LIVER FUNCTION TESTS. Medications: Amlodipine 5 mg daily in morning, Augmentin 875 mg 2 times a day, aspirin 81 mg daily, duloxetine 20 mg daily, levetiracetam 500 mg 2 times a day, levothyroxine 125 mcg daily, metformin 500 mg 2 times a day, metoprolol tartrate 50 mg 2 times a day, omeprazole 40 mg daily 30 minutes before breakfast, and rosuvastatin 5 mg daily at bedtime. Review of Systems: Dermatology as mentioned above. All other systems reviewed and negative. Past Medical History: Significant for Alzheimer disease, allergic rhinitis, throat cancer, hypothyroidism, type 2 diabetes mellitus, hypertension, mixed hyperlipidemia, coronary artery disease, paroxysmal atrial fibrillation, aortic stenosis, abdominal aortic aneurysm, carotid artery stenosis, bilateral gallstones, diverticulosis, depression, osteoarthritis at multiple sites. Past Surgical History: Significant for cataract surgery; tonsillectomy; coronary artery bypass surgery with CAVAZOS to LAD in July 2018; bioprosthetic aortic valve, which was placed in July 2018; hernia surgery; cholecystectomy in March 2023; left hip surgery; right knee surgery in form of arthroplasty; and left knee arthroplasty 2022. Family History: Father , had coronary artery disease. Mother had hypertension and diabetes. Brother had melanoma. Sister , had stroke and hepatitis C. Social History: Prior history of smoking. Not at present time. Use of alcohol, negative. Physical Examination: Vital Signs: Blood pressure 134/70, oxygen saturation 94%, temperature 96.9, pulse 69, respiratory rate 17. Height 5 feet 7 inches, weight 244 pounds. General: Awake, alert, oriented, not in distress. HEENT: Head atraumatic, normocephalic. Conjunctivae nonerythematous. Sclerae white. Mouth, no thrush or edema noted. Ears/Nose, no mass, lesion, discharge noted. Neck: Supple. No JVD, lymph nodes, bruit, thyromegaly noted. Lungs: Bilateral good equal air entry. Clear to auscultation. No rhonchi. No rales. Heart: Presence of systolic murmur. No gallop. Abdomen: Soft, bowel sounds normal. No guarding, rigidity, tenderness, mass, hepatosplenomegaly, distention, or bruit noted. Extremities: No leg edema. No calf tenderness. Skin: No rash, ulcer, cellulitis. Lymphatics: No lymph node enlargement in neck, supraclavicular, infraclavicular region. Neuro: No focal neurological deficit. Chest: On the right anterior lower chest wall, patient has approximately 3 cm superficial open wound with green colored discharge and has pink, warm, slightly tender indurated skin around it of about 2 cm size. External Genitalia: Deferred. Rectal: Deferred. Laboratory Data: White count 8, hemoglobin 14.3, platelets 211. Sodium 137, potassium 4.6, chloride 107, bicarb 30, BUN 20, creatinine 1.39, glucose 139. Liver function tests are unremarkable. Chest x-ray, no acute cardiopulmonary changes. Impression: 1. Abscess, right chest wall. 2. Coronary artery disease. 3. Hypertension. 4. Mixed hyperlipidemia. 5. Type 2 diabetes mellitus. 6. Allergic rhinitis. 7. Paroxysmal atrial fibrillation. 8. Osteoarthritis, multiple sites. 9. Diverticulosis. Plan: We will admit patient to hospital for further evaluation and management of this problem. The patient is appropriate for observation. We will start the patient on doxycycline and ceftriaxone per order and we will consult Dr. Gibbons from General Surgery who will perform surgery tomorrow for this and we will keep the patient n.p.o. after midnight. Diabetes will be managed with sliding scale insulin per order. For hyperlipidemia, we will continue rosuvastatin per order. For gastroesophageal reflux disease, we will continue his proton pump inhibitor and no need for further intervention on it. For coronary artery disease, he is on aspirin and metoprolol. We will continue that per order. For hypothyroidism, he takes levetiracetam. We will continue that and no need for further intervention. Details and plan of treatment discussed with the patient. I have also called Dr. Gibbons and discussed details with him. Total time spent today was 80 minutes including review of prior office record, performing evaluation and management today, discussion with general surgeon. NIKI/ALFRED Voice ID: [id number] MTDPrudencio
[2023-09-02] MEDS: PANTOPRAZOLE 40MG TABLET PO SCH (06:13)
[2023-09-02] MEDS: LEVOTHYROXINE SOD 0.125 MG TAB PO SCH (06:13)
[2023-09-02] MEDS: ASPIRIN 81 MG CHEWABLE TABLET PO SCH (08:07)
[2023-09-02] MEDS: DULOXETINE 20 MG CAP PO SCH (08:07)
[2023-09-02] MEDS: AMLODIPINE 5 MG TAB PO SCH (08:07)
[2023-09-02] MEDS: D5 0.9 NS 1,000 ML IV SCH (08:08)
--- NOTE | 2023-09-02 15:58 | CON ---
Date of Consultation: 09/02/2023 Reason For Service: Infected subcutaneous mass with cellulitis and abscess in right lower chest. History Of Present Illness: This is a case of an 83-year-old patient who came to us with what he cla imed is a mass on the right lower chest region. He has been observing that mass, but then the last f ew days started to get redness. He started antibiotics but it got worse to the point it developed an abscess. He was admitted to the hospital for IV antibiotics and also surgical consult was obtained for removal of the infected mass and drainage of an abscess. The patient has history of heart diseas e with cardiac valve replacement. Allergies: NONE. Social History: He does not smoke. He does not drink alcohol. Family History: Cardiac disease. Past Surgical History: Include tonsillectomy, cataract surgery, coronary artery bypass, bioprostheti c aortic valve was replaced in July 2018, hernia surgery, cholecystectomy, knee surgery, left hip surg nelida. Review of Systems: No shortness of breath. No chest pain. No fever. See HPI. Ten points otherwise unremarkable. Physical Examination: Vital Signs: Reviewed. General: Patient is awake, alert. HEENT: Pupils are equal and reactive. Anicteric. Neck: Supple. Chest: Bilateral breath sounds. Integumentary: On the lower chest region, patient has an area of cellulitis about 15 x 15 cm with wh at looks like an infected subcutaneous mass and purulent drainage. Extremities: Good capillary refill. Laboratory Data: Blood work shows a WBC count of 8 with the platelets of 211. Assessment: Cellulitis and infected mass with abscess in the right chest area. The plan will be inc ision and drainage, debridement, and removal of infected mass with benefits, alternatives, and risks including, but not limited to, infection, bleeding, damage to adjacent structures, anesthesia complic ation, nonhealing wound, [place], and even . He also understands this may not relieve any symptoms. He might need more than one surgical intervention. He will require wound care. We consulted Cardio logy since patient has heart disease and the Anesthetic to do this to give us some guidance on the ri sk. RODNEY/ALFRED Voice ID: [id number] Report ID: [id number]
--- NOTE | 2023-09-02 17:29 | CON ---
Date of Consultation: 09/02/2023 Reason For Consultation: Preop assessment for abscess I and D. History Of Present Illness: An 83-year-old male with history of coronary artery disease, status post CABG; history of an aortic valve replacement during the CABG time and he has history of diabetes, hy pertension, dyslipidemia, paroxysmal atrial fibrillation presented with abscess in the left and the r ight upper chest wall with drainage. I was consulted to evaluate the cardiac risk preoperatively. H e does not have any symptoms of chest pain or shortness of breath. A stress test about a year ago wa s negative as per his report and he is completely asymptomatic. He can climb stairs to the second fl oor without chest pain. Past Medical History: As outlined above in the HPI. Medications: Refer consultation sheet for detailed list. Allergies: NO KNOWN DRUG ALLERGIES. Family History: No premature coronary artery disease of cancer. Social History: He does not smoke or drink. Does not use any drugs. Review of Systems: All systems reviewed are negative except for mentioned in HPI. Physical Examination: Vital Signs: Reviewed. Head and Neck: Pupils are equal, reactive to light. Intact eye movements. No JVD. No cervical lym phadenopathy. Neck is supple. Thyroid is not enlarged. Lungs: Clear to auscultation bilaterally. No rhonchi, wheezes, or crackles. No accessory muscle us e. Heart: Regular rate and rhythm. No extra sounds. Abdomen: Soft, nontender. Bowel sounds positive. No organomegaly. No masses or hernia. No rigidi ty or rebound. Extremities: No edema, clubbing, or cyanosis. Intact pulses. Skin: Has abscess on the right upper chest wall with drainage. Neurologic: Alert, awake, oriented x3. No acute focal deficits appreciated. Investigations: BUN 20, creatinine 1.39, and hemoglobin is 14.3. Assessment/recommendations: 1.Preop cardiac risk assessment. The patient is asymptomatic, has history of coronary artery diseas e and aortic stenosis, status post transcatheter aortic valve replacement. Exam is unremarkable. He is at low cardiac risk for the abscess drainage to proceed without further cardiac workup. 2.Coronary artery disease, stable. No chest pain. Outpatient followup. 3.Aortic valve stenosis, status postop transcatheter aortic valve replacement. Outpatient echo is r ecommended. 4.Hypertension. Blood pressure is controlled. Continue home medications. Cardiology will sign off . Thank you for the consult. /ALFRED Voice ID: [id number] Report ID: [id number]
[2023-09-03] MEDS ORDERED: LIDOCAINE 2% MPF 5 ML VIAL ONE (12:45)
[2023-09-03] MEDS ORDERED: propofoL 200 MG/20 ML VIAL IV ONE (12:45)
[2023-09-03] MEDS ORDERED: FENTANYL CITR 100 MCG/2 ML ONE (12:45)
[2023-09-03] MEDS: NA CHLORIDE 0.9% 1,000 ML ONE (12:46)
[2023-09-03] MEDS ORDERED: ONDANSETRON 4 MG/2 ML VIAL ONE (13:23)
--- NOTE | 2023-09-03 13:53 | P.BOP ---
Preoperative diagnosis: chest wall celulitis, infected subQ mass with abscess Postoperative diagnosis: same Primary procedure: Excisional biopsy chest wall infected subQ mass with abscess Secondary procedure: [id number] Estimated blood loss: <10cc Specimen: mass Findings: as above Anesthesia: General Complications: None Drain(s): Other
--- NOTE | 2023-09-03 13:54 | EKG ---
Test Date: 2023-09-01 Test Time: 19:30:32 Government Minister: KARO MEASUREMENT RESULTS: Intervals: Rate: 63 [place]: 208 QRSD: 94 QT: 428 QTc: 437 [place]: P: 52 [place]: 208 QRS: 61 T: 81 INTERPRETIVE STATEMENTS: Normal sinus rhythm Anteroseptal infarct, age undetermined Abnormal ECG Compared to ECG 03/14/2023 21:43:59 No significant changes Electronically Signed On 09-03-23 13:49:59 CDT by Peterson Foster
[2023-09-03 14:36] VITALS: O2SAT 98
[2023-09-03 16:34] VITALS: BP 140/69; TEMP 97
--- NOTE | 2023-09-03 20:56 | PN ---
Date of Progress Note: 09/02/2023 Subjective: The patient was seen this morning for followup. No new complaints or problems reported by the patient, lying in bed, not in distress. Objective: Vital Signs: Reviewed. HEENT: Unremarkable. Lungs: Clear to auscultation. Heart: Sounds normal. Abdomen: Soft. Bowel sounds normal. No guarding, rigidity, tenderness, distention. Extremities: No leg edema. Chest: Right anterior lower chest wall has area of infected sebaceous cyst with open wound. [facility] skin is pink, warm, tender, and indurated. Overall, this is better than before. Impression: 1.Abscess/cellulitis, chest wall. 2.Coronary artery disease. 3.Hypertension. 4.Type 2 diabetes mellitus. Plan: The patient was kept n.p.o. for surgery today, but Dr. Gibbons called and informed me that An esthesia did not feel comfortable the patient undergoing surgery without Cardiology consult. So per Anesthesia request, surgery was canceled and Cardiology consultation was requested and Dr. Gibbons w ill do surgery tomorrow. We will continue current antibiotics. NIKI/MODL Voice ID: [id number] Report ID: [id number]
--- NOTE | 2023-09-04 00:08 | OP ---
Date of Procedure: 09/03/2023 Surgeon: Maximiliano Gibbons MD Preoperative Diagnoses: Chest wall cellulitis, infected subcutaneous mass with abscess. Postoperative Diagnoses: Chest wall cellulitis, infected subcutaneous mass with abscess. Procedure: Excisional biopsy of chest wall, infected subcutaneous mass with abscess drainage, 4 x 4 x 2 cm. Anesthesia: General. Complications: None. Packing: Wet-to-dry. Indications: This is the case of an 83-year-old patient, have a mass in the chest region, became inf ected, tried antibiotics, tried outpatient therapy, did not improve, got worse, admitted to the [facility] for IV antibiotics, and a surgical consult was obtained for drainage of an abscess and excisional biopsy of infected mass. The benefits, alternatives, and risks fully explained, which include, but not limited to infection, bleeding, damage to adjacent structures, anesthesia complication, nonhealin g wound, [place], and even . He also understands this may not relieve symptoms, he might need more t roldan one surgical intervention. The area of concern was marked by me and the patient in the holding r oom. Procedure In Detail: The patient was brought to the operating room and placed in supine position. A nesthesia was done without complication. A time-out was called. Chest was prepped and draped in a s terile fashion. Local anesthesia was applied followed by sharp incision of the skin. Incision was c arried down until we have good tissue present. Necrotic tissue was removed. Loculations were explor ed, opened. It is about 4 x 4 x 2 cm of the abscess. The area was irrigated. Hemostasis was obtain ed and the area was packed with wet-to-dry dressing. The patient tolerated the procedure well. The patient was sent to recovery in stable condition. RODNEY/ALFRED Voice ID: [id number] Report ID: [id number]
--- NOTE | 2023-09-04 07:08 | DS ---
Date of Discharge: 09/03/2023 Disposition: Discharged to go home. Physical Examination: HEENT: Unremarkable. Lungs: Clear to auscultation. Heart: Sounds normal. Abdomen: Soft. Bowel sounds normal. No guarding, rigidity, tenderness, distention. Extremities: No leg edema. Chest: Shows small superficial open wound with surrounding indurated, erythematous, and tender skin. Discharge Medications And Instructions: 1. Doxycycline 100 mg two times a day for 1 week. 2. Avoid sunlight exposure while taking doxycycline. 3. Follow up at my office next week. 4. Follow with Dr. Gibbons next week. 5. Wound care dressing changes as per instruction from Dr. Gibbons. 6. Take [id number] Tylenol 500 mg 3 times a day as needed for pain. Hospital Course: An 83-year-old male patient, who was admitted to the hospital with abscess of the right lower anterior chest wall area. Please see dictated H and P for more information. After the patient was evaluated at office, the patient was admitted to the hospital. He was given Augmentin for infected sebaceous cyst and that actually did not help to resolve this and this actually turned into abscess and requiring hospital admission. After he was admitted to the hospital, general surgeon, Dr. Gibbons was consulted and the patient was kept n.p.o. after midnight for surgical intervention. Unfortunately, Anesthesia did not want to do the case without Cardiology clearance, so surgery was canceled and Dr. Gibbons postponed surgery until today. Cardiology consultation was obtained and today the patient had this surgical intervention. After surgery, Dr. Gibbons notified me that from surgery point of view, the patient can go home. Medically, he is stable for discharge with above-mentioned medications and instructions. Final Diagnoses: 1. Abscess, right chest wall. 2. Coronary artery disease. 3. Hypertension. 4. Mixed hyperlipidemia. 5. Type 2 diabetes mellitus. 6. Allergic rhinitis. 7. Paroxysmal atrial fibrillation. 8. Osteoarthritis, multiple sites. 9. Diverticulosis. Laboratory Data: Upon admission, white count 8, hemoglobin 14.3, platelets 211. Sodium 137, potassium 4.6, chloride 107, bicarb 30, BUN 20, creatinine 1.39, glucose 139. Liver function tests unremarkable. Chest x-ray, no acute cardiopulmonary changes. Total time spent today 35 minutes. NIKI/MODL Voice ID: [id number] Report ID: [id number] [facility] HOSPITALPrudencio
== END 2023-09-03 16:21 | disposition home health service (06) ==
LOC: 4TH 14:02
PROVIDERS: ADMIT Internal Medicine; ATTEND Internal Medicine
PROC: 0JB60ZZ Excision of Chest Subcutaneous Tissue and Fascia, Open Approach (ICD-10-PCS; principal; 2023-09-03 15:15)
DX: L72.0 Epidermal cyst (principal); L02.213 Cutaneous abscess of chest wall; L03.313 Cellulitis of chest wall; L08.9 Local infection of the skin and subcutaneous tissue, unspecified; I25.10 Atherosclerotic heart disease of native coronary artery without angina pectoris; I10 Essential (primary) hypertension; E78.2 Mixed hyperlipidemia; E11.9 Type 2 diabetes mellitus without complications; I48.0 Paroxysmal atrial fibrillation; M19.90 Unspecified osteoarthritis, unspecified site; J30.9 Allergic rhinitis, unspecified; K57.90 Diverticulosis of intestine, part unspecified, without perforation or abscess without bleeding; Z95.1 Presence of aortocoronary bypass graft; Z95.2 Presence of prosthetic heart valve
CPT/HCPCS: 11042; 93005; 87070 ×2; 85025; 36415; 83735; 87205 ×2; 82947 ×4; 88304; 87075; 87077; 87186; 80053; 71046; G0379; J2704; J2001; J3010; J2405; G0378 ×5; J7042 ×2; J7030; J0696 ×4

== ENCOUNTER 2024-04-11 09:49 | Inpatient (IN) | payer OTHER ==
--- NOTE | 2024-04-11 10:33 | RAD REPORT ---
EXAMINATION: CT HEAD WITHOUT CONTRAST CLINICAL INDICATION: Male, 83 years old.WEAKNESS TECHNIQUE: Axial CT images from the skull base to the vertex without intravenous contrast. Coronal an d sagittal reformatted images were created from the data set. One or more of the following dose reduction techniques were used: Automated exposure control, adjustment of the mA and/or kV according to patient size, and/or iterative reconstruction. Unless otherwise specified, incidental findings do not require dedicated imaging follow-up. [id number]. COMPARISON: 04/19/2020 FINDINGS: INTRACRANIAL: No acute intracranial hemorrhage. No hydrocephalus. No mass effect or midline shift. Mo derate chronic small vessel ischemic changes.Age advanced cerebral atrophy. VASCULATURE: No visualized abnormalities in the arteries or dural venous sinuses. SCALP/SKULL: No significant soft tissue or osseous abnormalities. SINUSES: Mild ethmoid air cell thickening. IMPRESSION: No acute intracranial abnormality.
--- NOTE | 2024-04-11 10:39 | RAD REPORT ---
EXAM: Chest Single View HISTORY: SOB COMPARISON: 09/01/2023 FINDINGS: LUNGS/PLEURA: The lungs are clear. No pleural effusions or pneumothorax. No pulmonary edema. MEDIASTINUM: The mediastinal silhouette is within normal limits. CARDIAC: Mild cardiomegaly UPPER ABDOMEN: No significant abnormality. BONES: Sternotomy. No acute abnormality. LINES/TUBES/OTHER: N/A IMPRESSION: No evidence of acute cardiopulmonary disease.
[2024-04-11 11:10] LABS: Absolute Basophils 0.1 K/uL (0-0.5); Absolute Eosinophils 0.3 K/uL (0-0.5); Absolute Monocytes 0.8 K/uL (0.1-1.3); Absolute Neutrophil 7.6 K/uL (1.8-8.0); Basophils % 1.2 % (0-1.3); Eosinophils % 3.3 % (0-4.4); Hematocrit 46.8 % (39.6-49.0); Hemoglobin 15.7 g/dL (13.6-17.9); Lymphocytes % 10.2 % (15.3-44.8); MCH 30.2 pg (27.0-35.0); MCHC 33.5 g/dL (32.0-36.0); MPV 9.1 fL (7.6-11.3); Monocytes % 7.9 % (3.3-12.3); Neutrophils % 77.4 % (41.7-73.7); Nucleated Red Blood Cells % 0.1 % (0-0); Platelets 164 thou/uL (152-406)
[2024-04-11 11:17] LABS: PT Prothrombin Time 12.8 SECONDS (9.4-12.5); Protime INR 1.22
[2024-04-11] MEDS ORDERED: ACETAMINOPHEN 500 MG TAB ONE (11:26)
[2024-04-11 11:40] LABS: SARS-CoV-2 Antigen CONTROL BLUE LINE VIS/BG OK; SARS-CoV-2 Antigen Rapid Res Negative (Negative)
[2024-04-11 11:44] LABS: Potassium 3.9 mEq/L (3.5-5.1)
[2024-04-11 11:45] LABS: Albumin 3.5 g/dL (3.4-5.0); Albumin/Globulin Ratio 0.7 (1.1-1.8); Bilirubin Direct 0.3 mg/dL (0-0.2); Bilirubin Indirect, Calculated 0.7 mg/dL (0.2-0.8); Globulin 5.1 g/dL (2.3-3.5); Protein, Total 8.6 g/dL (6.4-8.2)
[2024-04-11 11:46] LABS: Magnesium 1.9; Troponin High Sensitivity 16.6 (<58.9)
[2024-04-11 12:07] LABS: Anion Gap 10.9 mEq/L (5.0-15.0)
[2024-04-11] MEDS ORDERED: NA CHLORIDE 0.9% 250 ML ONE (13:10)
[2024-04-11] MEDS ORDERED: OSELTAMIVIR 75 MG CAP PO ONE (13:10)
[2024-04-11 13:27] LABS: Specific Gravity 1.023 (1.005-1.030); Sqamous Epithelial None Seen /HPF (None Seen); Urine Bacteria None Seen /HPF (<20); Urine Bilirubin NEGATIVE (Negative); Urine Blood Trace (Negative); Urine Clarity Clear (Clear); Urine Color Yellow (Yellow); Urine Culture Reflex Order NOT NEEDED; Urine Glucose NEGATIVE (Negative); Urine Ketones NEGATIVE (Negative); Urine Micro Reflex YN NO BILL MICROSCOPIC; Urine Mucus Slight /HPF (None Seen); Urine Nitrite NEGATIVE (Negative); Urine Protein 1+ (Negative); Urine Urobilinogen Normal (Normal); Urine WBC <5 /HPF (<5)
--- NOTE | 2024-04-11 14:00 | EDPHYS ---
Physician Documentation [facility] Name: Franklin Castro Age: 83 yrs Sex: Male : 1940 Arrival Date: 04/11/2024 Time: 09:49 Bed 19 Private MD: ED Physician Lei Grey HPI: 04/11 10:05 This 83 yrs old Male presents to ER via EMS with complaints of General Weakness. cp 10:05 The patient's problem is reported as weakness, that is generalized. cp 10:05 Onset: The symptoms/episode began/occurred 3 day(s) ago. cp 10:05 Duration: The episode is continuous. Context: occurred at home. Associated signs and cp symptoms: Pertinent negatives: abdominal pain, chest pain, confusion. 10:05 Patient's baseline: Neuro: alert and fully oriented, Motor: no deficits, Ambulation: cp walks with assist only, Speech: normal. Historical: - Allergies: 09:59 Unknown antihypertensive medication; aa5 - Home Meds: :59 Metoprolol Tartrate Oral [Active]; levothyroxine 125 mcg capsule [Active]; metoprolol aa5 tartrate 50 mg Oral tablet 2 times per day [Active]; rosuvastatin 5 mg Oral tablet 1 tab nightly [Active]; metformin 500 mg Oral tablet 1 tab daily [Active]; amlodipine 5 mg tablet 1 tab daily [Active]; aspirin 325 mg Oral capsule 1 cap daily [Active]; duloxetine 20 mg Oral capsule 1 cap daily [Active]; levetiracetam 500 mg Oral tablet 1 tab 2 times per day [Active]; - PMHx: 09:56 Dementia; Diabetes - NIDDM; Hypertension; Hypothyroidism; Subdural frontal bleed; aa5 throat cancer; - PSHx: 09:56 heart surgery; knee replacement; Tonsillectomy; aa5 - Immunization history:: Adult Immunizations unknown. - Infectious Disease History:: Denies. - Social history:: Smoking status: unknown. ROS: 10:10 Neuro: Positive for dizziness, headache, weakness, Negative for altered mental status, cp 10:10 Eyes: Negative for injury, pain, redness, and discharge, cp 10:10 Constitutional: Negative for fever, poor PO intake, 10:10 ENT: Negative for drainage from ear(s), ear pain, sore throat, difficulty swallowing, difficulty handling secretions, 10:10 Cardiovascular: Negative for chest pain, edema, palpitations, 10:10 Respiratory: Positive for cough, 10:10 Abdomen/GI: Negative for abdominal pain, vomiting, diarrhea, constipation, 10:10 : Positive for foul smelling urine, Negative for hematuria, 10:10 All other systems are negative, Exam: 10:15 Constitutional: The patient appears in no acute distress, alert, awake, cp non-diaphoretic, non-toxic, well developed, well nourished, 10:15 Head/Face: Normocephalic, atraumatic. cp 10:15 Eyes: Periorbital structures: appear normal, Pupils: equal, round, and reactive to cp light and accomodation, Extraocular movements: intact throughout, Conjunctiva: normal, no exudate, no injection, Sclera: no appreciated abnormality, Lids and lashes: appear normal, bilaterally, 10:15 ENT: External ear(s): are unremarkable, Nose: is normal, Mouth: Lips: moist, Oral mucosa: moist, Posterior pharynx: Airway: no evidence of obstruction, patent, 10:15 Neck: ROM/movement: is normal, is supple, without pain, no range of motions limitations, 10:15 Chest/axilla: Inspection: normal, 10:15 Cardiovascular: Rate: normal, Rhythm: regular, Edema: is not appreciated, JVD: is not appreciated, 10:15 Respiratory: the patient does not display signs of respiratory distress, Respirations: labored breathing, is not present, shallow respirations, are not present, Breath sounds: bronchial sounds, that are mild, are heard diffusely, stridor, is not appreciated, wheezing: is not appreciated, 10:15 Abdomen/GI: Inspection: abdomen appears normal, Palpation: abdomen is soft and cp non-tender, in all quadrants, 10:15 Back: pain, is absent, ROM is normal, 10:15 Skin: cellulitis, is not appreciated, no rash present. 10:15 Neuro: Orientation: to person, place \T\ time. Mentation: is normal, Cerebellar function: Romberg testing is negative, Motor: moves all fours, no focal deficits, Sensation: is normal, 10:58 Radiologist reports: no acute findings on head CT cp 11:52 ECG was reviewed by the Attending Physician. 04/12 03:15 Repeat EKG at 0305 after found to have elevated troponin. EKG reveals normal sinus sp4 rhythm rate 73, no changes from EKG at 11:46 AM, no ST elevation or depression, no ectopy, Vital Signs: 04/11 09:56 BP 154 / 92; Pulse 97; Resp 22 S; Temp 98.4(O); Pulse Ox 95% on R/A; Weight 104.33 kg aa5 (R); Height 5 ft. 8 in. (R); Pain 0/10; 13:16 BP 139 / 84; Pulse 79; Resp 24 S; Temp 98.6(O); Pulse Ox 92% on R/A; aa5 13:16 Pulse Ox 95% on 2 lpm NC; aa5 14:40 BP 133 / 80; Pulse 82; Resp 27 S; Pulse Ox 97% on 2 lpm NC; aa5 16:00 BP 116 / 74; Pulse 76; Resp 20; Pulse Ox 95% on 2 lpm NC; jb4 09:56 Body Mass Index 34.97 (104.33 kg, 172.72 cm) aa5 09:56 Pain Scale: Adult aa5 Deon Coma Score: 04/12 03:15 Eye Response: spontaneous(4). Motor Response: obeys commands(6). Verbal Response: sp4 oriented(5). Total: 15. MDM: 04/11 11:00 Differential diagnosis: CVA, TIA, metabolic disorder, drug effects, sepsis, uti, acute cp coronary syndrome. 14:00 Medical Screening Exam initiated 14:30 Management of patient was discussed with the following: Primary Care Provider: DR Karen bryan who will admit after discussion. Independent interpretation of the following test(s) in the Emergency Department EKG: See my EKG interpretation above. 14:30 Care significantly affected by the following chronic conditions: Diabetes, cp Hypertension. Counseling: I had a detailed discussion with the patient and/or guardian regarding the historical points, exam findings, and any diagnostic results supporting the discharge/admit diagnosis, lab results, radiology results, the need for further work-up and treatment in the hospital. Response to treatment: the patient's symptoms have mildly improved after treatment, and as a result, I will admit patient. 04/12 03:15 Data reviewed: vital signs, nurses notes. sp4 03:15 ED course: COMPARISON: 04/19/2020 FINDINGS: INTRACRANIAL: No acute intracranial sp4 hemorrhage. No hydrocephalus. No mass effect or midline shift. Moderate chronic small vessel ischemic changes.Age advanced cerebral atrophy. VASCULATURE: No visualized abnormalities in the arteries or dural venous sinuses. SCALP/SKULL: No significant soft tissue or osseous abnormalities. SINUSES: Mild ethmoid air cell thickening. IMPRESSION: No acute intracranial abnormality. . ED course: HISTORY: SOB COMPARISON: 09/01/2023 FINDINGS: LUNGS/PLEURA: The lungs are clear. No pleural effusions or pneumothorax. No pulmonary edema. MEDIASTINUM: The mediastinal silhouette is within normal limits. CARDIAC: Mild cardiomegaly UPPER ABDOMEN: No significant abnormality. BONES: Sternotomy. No acute abnormality. LINES/TUBES/OTHER: N/A IMPRESSION: No evidence of acute cardiopulmonary disease. . 04/11 10:02 Order name: Urinalysis W/Microscopic; Complete Time: 13:51 cp 04/11 13:51 Interpretation: Normal except: UBLD Trace; UPROT 1+; URBC 11-20. cp 04/11 10:02 Order name: Urine Culture cp 04/11 10:02 Order name: Basic Metabolic Panel; Complete Time: 12:24 cp 04/11 12:24 Interpretation: Normal except: NA 135; GLUC 162; GFR 57. cp 04/11 10:02 Order name: CBC with Diff; Complete Time: 11:24 cp 04/11 11:25 Interpretation: Normal except: HOANG% 77.4; LYM% 10.2. cp 04/11 10:02 Order name: LFT's; Complete Time: 12:24 cp 04/11 12:25 Interpretation: Normal except: AST 61; BILID 0.3; TP 8.6; GLOB 5.1; A/G 0.7. cp 04/11 10:02 Order name: Magnesium; Complete Time: 12:24 cp 04/11 10:02 Order name: NT PRO-BNP; Complete Time: 12:24 cp 04/11 10:02 Order name: PT-INR; Complete Time: 11:24 cp 04/11 10:02 Order name: Troponin HS; Complete Time: 12:24 cp 02 10:02 Order name: Influenza Screen (a \T\ B); Complete Time: 12:24 cp 04/11 10:02 Order name: SARS RAPID; Complete Time: 12:24 cp 04/11 10:02 Order name: Blood Culture Adult (2) cp 04/11 10:02 Order name: Lactate w/ 2H reflex if indic.; Complete Time: 12:24 cp 04/11 12:25 Interpretation: Abnormal: LAC 1.9. cp 04/11 17:04 Order name: Basic Metabolic Panel EDMS 04/11 17:04 Order name: Basic Metabolic Panel EDMS 04/11 17:04 Order name: CBC with Automated Diff EDMS 04/11 17:04 Order name: CBC with Automated Diff EDMS 04/11 17:04 Order name: NT PRO-BNP EDMS 04/11 17:04 Order name: NT PRO-BNP EDMS 04/11 17:04 Order name: Troponin High Sensitivity EDMS 04/11 17:04 Order name: Troponin High Sensitivity; Complete Time: 02:19 EDMS 04/11 17:04 Order name: Troponin High Sensitivity; Complete Time: 02:19 EDMS 04/11 17:04 Order name: Troponin High Sensitivity; Complete Time: 02:20 EDMS 04/11 21:47 Order name: Glucose, Ancillary Testing; Complete Time: 02:19 EDMS 04/12 05:35 Order name: Phosphorus EDMS 04/12 05:35 Order name: Magnesium EDMS 04/12 08:08 Order name: CBC Smear Scan EDMS 04/12 08:13 Order name: Glucose, Ancillary Testing EDMS 04/12 09:49 Order name: Troponin High Sensitivity EDMS 04/12 11:26 Order name: Gram Stain--Aerobic Bottle EDMS 04/12 11:28 Order name: Gram Stain--Aerobic Bottle EDMS 04/12 11:31 Order name: Glucose, Ancillary Testing EDMS 04/12 16:50 Order name: Glucose, Ancillary Testing EDMS 04/11 10:02 Order name: XRAY Chest (1 view); Complete Time: 10:54 cp 04/11 10:54 Interpretation: Report review. cp 04/11 10:02 Order name: CT Head Brain wo Cont; Complete Time: 10:54 cp 04/11 10:55 Interpretation: Report reviewed. cp 04/11 10:02 Order name: EKG; Complete Time: 10:03 cp 04/11 17:04 Order name: Physical Therapy Consult EDMS 04/12 02:54 Order name: EKG; Complete Time: 02:54 sp4 04/11 10:02 Order name: Cardiac monitoring; Complete Time: 10:03 cp 04/11 10:02 Order name: EKG - Nurse/Tech; Complete Time: 11:48 cp 04/11 10:02 Order name: IV Saline Lock; Complete Time: 11:03 cp 04/11 10:02 Order name: Labs collected and sent; Complete Time: 11:21 cp 04/11 10:02 Order name: O2 Per Protocol; Complete Time: 10:03 cp 04/11 10:02 Order name: O2 Sat Monitoring; Complete Time: 11:21 cp 04/11 10:02 Order name: Accucheck; Complete Time: 11:03 cp 04/11 10:02 Order name: IV Saline Lock - Large Bore; Complete Time: 11:03 cp 04/11 10:02 Order name: Vital Signs; Complete Time: 11:03 cp 04/12 02:54 Order name: EKG - Nurse/Tech; Complete Time: 03:11 sp4 EC/02 11:52 Rate is 89 beats/min. Rhythm is regular. WV interval is normal. QRS interval is normal. cp QT interval is normal. T waves are Inverted in lead aVR. Interpreted by me. Reviewed by me. Administered Medications: 11:48 Drug: Acetaminophen PO 1000 mg PO once Route: PO; aa5 13:16 Follow up: Response: No adverse reaction aa5 13:16 Drug: Oseltamivir PO 75 mg PO once Route: PO; aa5 14:25 Follow up: Response: No adverse reaction aa5 13:16 Drug: NS 0.9% IV 250 ml IV at calculated rate once; to be given as a bolus over 60 aa5 minutes Route: IV; Rate: calculated rate; Site: right antecubital; 14:16 Follow up: IV Status: Completed infusion aa5 13:58 CANCELLED (Physician Discretion): ipratropiumaerosol 0.5 mg Inhalation once cp 13:59 CANCELLED (Physician Discretion): albuterol2.5 mg Inhalation once cp 14:25 Drug: MethylPrednisoLONE IVP 125 mg IVP once Route: IVP; Site: left antecubital; aa5 14:57 Follow up: Response: No adverse reaction aa5 14:25 Drug: DuoNeb Nebulize (2.5 mg - 0.5 mg) 3 ml Nebulizer once Route: Nebulizer; aa5 14:57 Follow up: Response: No adverse reaction aa5 04/12 03:20 Drug: Enoxaparin Sub-Q 100 mg Sub-Q once Route: Sub-Q; Site: right lower abdomen; ay 14:01 Follow up: Response: No adverse reaction kj2 Disposition: 04/13 01:39 Co-signature as Attending Physician, Lei Grey MD I agree with the assessment sp4 and plan of care. I reviewed the patient's care provided by Advanced Practice Provider \T\ agree w/ the diagnosis \T\ care plan. I personally saw the pt \T\ performed a substantive portion of the visit, incldng all aspects of the (History/Exam/Medical Decision Making). Disposition Summary: 04/11/24 14:00 Hospitalization Ordered Notes: Hospitalization Status: Inpatient Admission cp Provider: Kevin Jones cp Condition: Stable cp Problem: new cp Symptoms: have improved cp Bed/Room Type: Standard cp Location: Telemetry/MedSurg (Inpatient)(04/12/24 13:41) kb3 Room Assignment: 204(04/12/24 13:41) kb3 Diagnosis - Influenza due to identified novel influenza A virus with other respiratory cp manifestations - Weakness cp Forms: - Medication Reconciliation Form cp - SBAR form cp - Leadership Thank You Letter cp Signatures: Dispatcher [employer] EDMS Sol Mcgill, RN RN aa5 Gonzales Sainz PA PA cp Vance Bustillo RN RN ja1 Kenya Buckley RN RN kb3 Lei Grey MD MD sp4 Maeve Chang RN RN kj2 Maryuri Luna RN RN ay Corrections: (The following items were deleted from the chart) 04/11 10:03 10:02 Urinalysis W/Microscopic+U.LAB.BRZ ordered. EDMS EDMS 10: 10:02 Urine Culture+BA.LAB.BRZ ordered. EDMS EDMS 10: 10:02 BASIC METABOLIC PANEL+C.LAB.BRZ ordered. EDMS EDMS 10:03 10:02 CBC+H.LAB.BRZ ordered. EDMS EDMS 10:03 10:02 HEPATIC FUNCTION+C.LAB.BRZ ordered. EDMS EDMS 10:03 10:02 MAGNESIUM+C.LAB.BRZ ordered. EDMS EDMS 10:03 10:02 PROBNP+C.LAB.BRZ ordered. EDMS EDMS 10:03 10:02 PROTIME (+INR)+COAG.LAB.BRZ ordered. EDMS EDMS 10:03 10:02 Troponin High Sensitivity+C.LAB.BRZ ordered. EDMS EDMS 10:03 10:02 Influenza Screen (A \T\ B)+BA.LAB.BRZ ordered. EDMS EDMS 10:03 10:02 SARS-COV-2 Antigen Rapid+I.LAB.BRZ ordered. EDMS EDMS 10:03 10:02 BLOOD CULTURE*+BA.LAB.BRZ ordered. EDMS EDMS 10:03 10:02 LACTATE+C.LAB.BRZ ordered. EDMS EDMS 13:58 13:54 Ipratropium Inhalation Aerosol 0.5 mg Inhalation once ordered. cp cp 13:59 13:54 Albuterol Inhalation 2.5 mg Inhalation once ordered. cp cp 17:06 14:00 Telemetry/MedSurg (Inpatient) cp ja1 17:06 14:00 cp ja1 02 08:14 03:15 Constitutional: This is a well developed, well nourished patient who is awake, cp alert, and in no acute distress. Head/Face: Normocephalic, atraumatic. Eyes: Pupils equal round and reactive to light, extra-ocular motions intact. Lids and lashes normal. Conjunctiva and sclera are not injected. Cornea within normal limits. Periorbital areas with no swelling, redness, or edema. ENT: Nares patent. No nasal discharge, no septal abnormalities noted. Tympanic membranes are normal and external auditory canals are clear. Oropharynx with no redness, swelling, or masses, exudates, or evidence of obstruction, uvula midline. Mucous membranes moist. Neck: Trachea midline, no thyromegaly or masses palpated, and no cervical lymphadenopathy. Supple, full range of motion without nuchal rigidity, or vertebral point tenderness. Chest/axilla: Normal chest wall appearance and motion. Nontender with no deformity. No lesions are appreciated. Cardiovascular: Regular rate and rhythm with a normal S1 and S2. No gallops, murmurs, or rubs. Normal PMI, no JVD. No pulse deficits. Respiratory: Lungs have equal breath sounds bilaterally, clear to auscultation and percussion. No rales, rhonchi or wheezes noted. No increased work of breathing, no retractions or nasal flaring. Abdomen/GI: Soft, with normal bowel sounds. No distension or tympany. No guarding or rebound. No evidence of tenderness throughout. Back: No spinal tenderness. No costovertebral tenderness. Skin: Warm, dry with normal turgor. Normal color with no rashes, no lesions, and no evidence of cellulitis. MS/ Extremity: Pulses equal, no cyanosis. Neurovascular intact. Full, normal range of motion. Neuro: Awake and alert, GCS 15, oriented to person, place, time, and situation. Cranial nerves II-XII grossly intact. Motor strength 5/5 in all extremities. Sensory grossly intact. sp4 13:41 04/11 17:06 [facility] ER HOLD ja1 kb3 02 13:41 04/11 17:06 ERHOLD- ja1 kb3
--- NOTE | 2024-04-11 14:00 | ER ---
Nurse's Notes [facility] Name: Franklin Castro Age: 83 yrs Sex: Male : 1940 Arrival Date: 04/11/2024 Time: 09:49 Bed 19 Private MD: Diagnosis: Influenza due to identified novel influenza A virus with other respiratory manifestations;Weakness Presentation: 04/11 09:56 Chief complaint: Patient states: generalized weakness and malaise x 2-3 days ago. aa5 09:56 Coronavirus screen: cough unrelated to allergies. Ebola Screen: Patient denies travel aa5 to an Ebola-affected area in the 21 days before illness onset. Initial Sepsis Screen: Does the patient meet any 2 criteria? RR > 20 per min. HR > 90 bpm. Does the patient have a suspected source of infection? No. Patient's initial sepsis screen is negative. Risk Assessment: Do you want to hurt yourself or someone else? Patient reports no desire to harm self or others. Onset of symptoms was March 2024. 09:56 Acuity: JIMY 3 aa5 09:56 Method Of Arrival: EMS: [facility] aa5 09:56 Care prior to arrival: IV initiated. 20 GA, in the left antecubital area, Oxygen aa5 administered. via nasal cannula. Historical: - Allergies: : Unknown antihypertensive medication; aa5 - Home Meds: Metoprolol Tartrate Oral [Active]; levothyroxine 125 mcg capsule [Active]; metoprolol aa5 tartrate 50 mg Oral tablet 2 times per day [Active]; rosuvastatin 5 mg Oral tablet 1 tab nightly [Active]; metformin 500 mg Oral tablet 1 tab daily [Active]; amlodipine 5 mg tablet 1 tab daily [Active]; aspirin 325 mg Oral capsule 1 cap daily [Active]; duloxetine 20 mg Oral capsule 1 cap daily [Active]; levetiracetam 500 mg Oral tablet 1 tab 2 times per day [Active]; - PMHx: 09:56 Dementia; Diabetes - NIDDM; Hypertension; Hypothyroidism; Subdural frontal bleed; aa5 throat cancer; - PSHx: 09:56 heart surgery; knee replacement; Tonsillectomy; aa5 - Immunization history:: Adult Immunizations unknown. - Infectious Disease History:: Denies. - Social history:: Smoking status: unknown. Screenin:[address] [facility] ED Fall Risk Assessment (Adult) History of falling in the last 3 months, aa5 including since admission No falls in past 3 months (0 pts) Confusion or Disorientation No (0 pts) Intoxicated or Sedated No (0 pts) Impaired Gait Yes (1 pt) Mobility Assist Device Used Yes (1 pt) Altered Elimination Yes (1 pt) Score/Fall Risk Level 3 or more points = High Risk Oriented to surroundings, Maintained a safe environment, Educated pt \\T\\ family on fall prevention, incl call for assistance when getting out of bed, Assessed \\T\\ reinforced patient's understanding of fall precautions. Abuse screen: Denies threats or abuse. Nutritional screening: No deficits noted. Tuberculosis screening: No symptoms or risk factors identified. Assessment: 09:56 General: Appears comfortable, Behavior is calm, cooperative. Pain: Denies pain. Neuro: aa5 Level of Consciousness is awake, alert, obeys commands, Oriented to person, place, time, situation, Corn Picker are equal bilaterally Moves all extremities. Speech is normal, Facial symmetry appears normal, Reports generalized weakness . Cardiovascular: Heart tones S1 S2 present Edema is absent. Rhythm is regular. Respiratory: Reports baseline cough and SOB, pt states "I always have a cough and trouble breathing but it's not worse than normal" Airway is patent Respiratory effort is even, unlabored, Respiratory pattern is tachypnea Breath sounds are clear bilaterally. GI: Abdomen is round Patient currently denies diarrhea, intolerance of fluids, intolerance of food, nausea, vomiting. : Brief noted Reports incontinence. EENT: No signs and/or symptoms were reported regarding the EENT system. Derm: Skin is pink, warm \\T\\ dry. Musculoskeletal: Range of motion: intact in all extremities, Reports he is ambulatory with cane. 10:20 Reassessment: Pt to radiology . aa5 12:20 Reassessment: Pt cleaned of urinary incontinence, clean brief applied. Redness noted to aa5 scrotum. . 13:16 Reassessment: Patient is alert, oriented x 3, equal unlabored respirations, skin aa5 warm/dry/pink. 14:25 Reassessment: Patient is alert, oriented x 3, equal unlabored respirations, skin aa5 warm/dry/pink. Brief checked, brief dry. . 15:00 Reassessment: Patient appears in no apparent distress at this time. Patient and/or jb4 family updated on plan of care and expected duration. Pain level reassessed. Patient is alert, oriented x 3, equal unlabored respirations, skin warm/dry/pink. 16:54 Reassessment: Patient appears in no apparent distress at this time. Patient and/or jb4 family updated on plan of care and expected duration. Pain level reassessed. Patient is alert, oriented x 3, equal unlabored respirations, skin warm/dry/pink. Vital Signs: 09:56 BP 154 / 92; Pulse 97; Resp 22 S; Temp 98.4(O); Pulse Ox 95% on R/A; Weight 104.33 kg aa5 (R); Height 5 ft. 8 in. (R); Pain 0/10; 13:16 BP 139 / 84; Pulse 79; Resp 24 S; Temp 98.6(O); Pulse Ox 92% on R/A; aa5 13:16 Pulse Ox 95% on 2 lpm NC; aa5 14:40 BP 133 / 80; Pulse 82; Resp 27 S; Pulse Ox 97% on 2 lpm NC; aa5 16:00 BP 116 / 74; Pulse 76; Resp 20; Pulse Ox 95% on 2 lpm NC; jb4 09:56 Body Mass Index 34.97 (104.33 kg, 172.72 cm) aa5 09:56 Pain Scale: Adult aa5 Deon Coma Score: 0203 03:15 Eye Response: spontaneous(4). Motor Response: obeys commands(6). Verbal Response: sp4 oriented(5). Total: 15. ED Course: 04/11 09:56 Patient arrived in ED. aa5 09:56 Gonzales Sainz PA is PHCP. cp 09:56 Joselo Tello MD is Attending Physician. cp 09:56 Arm band placed on. aa5 09:56 Patient has correct armband on for positive identification. Placed in gown. Bed in low aa5 position. Call light in reach. Side rails up X2. Client placed on continuous cardiac and pulse oximetry monitoring. NIBP monitoring applied. nuclear monitoring technician on. Pulse ox on. NIBP on. 09:58 Triage completed. aa5 10:00 Sol Mcgill, RN is Primary Nurse. aa5 10:28 CT Head Brain wo Cont In Process Unspecified. EDMS 10:37 XRAY Chest (1 view) In Process Unspecified. EDMS 10:48 First set of blood cultures drawn by me. aa5 11:00 Initial lab(s) drawn, by me, sent to lab. Second set of blood cultures drawn by me. aa5 11:07 Inserted saline lock: 22 gauge in right antecubital area, using aseptic technique. aa5 Flushed with 10 mL NS. 11:48 EKG done, by ED staff, reviewed by Gonzales BILLINGSLEY. aa5 13:59 Kevin Jones MD is Hospitalizing Provider. cp 14:20 intact, bleeding controlled, Pressure dressing applied, 22G to R AC dc'd after swelling aa5 was noted to site upon flushing with 5mls NS. 15:00 Report given to Franklin Irene RN. aa5 04/12 02:53 Attending Physician role handed off by Joselo Tello MD sp4 02:53 Lei Grey MD is Attending Physician. sp4 16:52 Provided Education on: need for admit. kj2 Administered Medications: 04/11 11:48 Drug: Acetaminophen PO 1000 mg PO once Route: PO; aa5 13:16 Follow up: Response: No adverse reaction aa5 13:16 Drug: Oseltamivir PO 75 mg PO once Route: PO; aa5 14:25 Follow up: Response: No adverse reaction aa5 13:16 Drug: NS 0.9% IV 250 ml IV at calculated rate once; to be given as a bolus over 60 aa5 minutes Route: IV; Rate: calculated rate; Site: right antecubital; 14:16 Follow up: IV Status: Completed infusion aa5 13:58 CANCELLED (Physician Discretion): ipratropiumaerosol 0.5 mg Inhalation once cp 13:59 CANCELLED (Physician Discretion): albuterol2.5 mg Inhalation once cp 14:25 Drug: MethylPrednisoLONE IVP 125 mg IVP once Route: IVP; Site: left antecubital; aa5 14:57 Follow up: Response: No adverse reaction aa5 14:25 Drug: DuoNeb Nebulize (2.5 mg - 0.5 mg) 3 ml Nebulizer once Route: Nebulizer; aa5 14:57 Follow up: Response: No adverse reaction aa5 04/12 03:20 Drug: Enoxaparin Sub-Q 100 mg Sub-Q once Route: Sub-Q; Site: right lower abdomen; ay 14:01 Follow up: Response: No adverse reaction kj2 Medication: 04/11 14:25 VIS not applicable for this client. aa5 Outcome: 14:00 Decision to Hospitalize by Provider. randi 04/12 16:20 Admitted to Med/surg accompanied by tech, via stretcher, kj2 Condition: stable Instructed on the need for admit, 16:53 Patient left the ED. kj2 Signatures: Dispatcher [employer] EDMS Sol Mcgill, RN RN aa5 Gonzales Sainz PA PA cp Bryson, James, RN RN jb4 Lei Grey MD MD sp4 Maeve Chang RN RN kj2 Maryuri Luna RN RN ay Corrections: (The following items were deleted from the chart) 04/11 15:01 09:56 Respiratory: Reports baseline cough and SOB, pt states "I always have a cough and aa5 trouble breathing but it's not worse than normal" Airway is patent Respiratory effort is even, unlabored, Respiratory pattern is tachypnea aa5
[2024-04-11] MEDS ORDERED: IPRATROPIUM BROM 0.5MG/2.5ML ONE ×3 (14:11→22:58)
[2024-04-11] MEDS ORDERED: ALBUTEROL 2.5 MG/3 ML NEB SOL ONE ×3 (14:11→22:58)
[2024-04-11] MEDS ORDERED: METHYLPREDNISOLONE 125 MG INJ ONE (14:11)
[2024-04-11] MEDS ORDERED: ONDANSETRON 4 MG/2 ML VIAL IV PRN (16:59)
[2024-04-11] MEDS ORDERED: ACETAMINOPHEN 500 MG TAB PO PRN (16:59)
[2024-04-11] MEDS: ALBUTEROL 2.5 MG/3 ML NEB SOL NEB SCH (17:00)
[2024-04-11] MEDS: IPRATROPIUM BROM 0.5MG/2.5ML NEB SCH (17:00)
[2024-04-11] MEDS ORDERED: MIDODRINE HCL 5 MG TABLET ONE (17:55)
[2024-04-11] MEDS: METFORMIN HCL 500 MG TAB PO SCH (18:00)
[2024-04-11] MEDS: MIDODRINE HCL 5 MG TABLET PO SCH (18:00)
[2024-04-11] MEDS: GALANTAMINE 4 MG TAB PO SCH (18:19)
[2024-04-11 20:52] VITALS: BMI 34.9
[2024-04-11] MEDS ORDERED: levETIRAcetam 500 MG TAB ONE (21:41)
[2024-04-11] MEDS ORDERED: METOPROLOL TAR 50 MG TAB ONE (21:41)
[2024-04-11] MEDS ORDERED: INSULIN REGULAR (HUMAN) 100 UNIT/ML ONE (21:42)
[2024-04-11] MEDS: levETIRAcetam 500 MG TAB PO SCH (21:45)
[2024-04-11] MEDS: INSULIN REGULAR (HUMAN) 100 UNIT/ML SQ SCH (21:45)
[2024-04-11] MEDS: METOPROLOL TAR 50 MG TAB PO SCH (21:45)
[2024-04-11] MEDS ORDERED: DOCUSATE NA/SENNA CONC 1 TAB ONE (22:34)
[2024-04-11] MEDS: ROSUVASTATIN 5 MG TAB PO SCH (22:45)
[2024-04-11] MEDS: DOCUSATE NA/SENNA CONC 1 TAB PO SCH (22:45)
[2024-04-12] MEDS ORDERED: ENOXAPARIN 100 MG/ML SYR SQ ONE (03:17)
[2024-04-12 05:18] LABS: Absolute Basophils 0.1 K/uL (0-0.5); Absolute Lymphocytes (CBC) 0.5 K/uL (0.7-4.9); Absolute Monocytes 0.2 K/uL (0.1-1.3); Absolute Neutrophil 7.6 K/uL (1.8-8.0); Basophils % 1.7 % (0-1.3); Hematocrit 43.3 % (39.6-49.0); Hemoglobin 14.6 g/dL (13.6-17.9); Lymphocytes % 5.5 % (15.3-44.8); MCH 30.4 pg (27.0-35.0); MCHC 33.7 g/dL (32.0-36.0); MCV 90.2 fL (80-100); MPV 9.1 fL (7.6-11.3); Monocytes % 2.2 % (3.3-12.3); Neutrophils % 90.6 % (41.7-73.7); Platelets 163 thou/uL (152-406); Red Cell Distribution Width 14.2 % (12.1-15.2)
[2024-04-12 05:35] LABS: Anion Gap 10.8 mEq/L (5.0-15.0); Magnesium 2.1 mg/dL (1.6-2.4); Phosphorus 3.1 mg/dL (2.5-4.9); Potassium 3.8 mEq/L (3.5-5.1)
[2024-04-12] MEDS ORDERED: LEVOTHYROXINE SOD 0.05 MG TABLET ONE (06:31)
[2024-04-12] MEDS ORDERED: MIDODRINE HCL 5 MG TABLET ONE (06:33)
[2024-04-12] MEDS ORDERED: PANTOPRAZOLE 40 MG INJ ONE (06:33)
[2024-04-12] MEDS: LEVOTHYROXINE SOD 0.125 MG TAB PO SCH (07:00)
[2024-04-12] MEDS: PANTOPRAZOLE 40MG TABLET PO SCH (07:00)
[2024-04-12 08:07] LABS: Platelet Estimate ADEQ; White Blood Cell Scan OK (OK)
[2024-04-12 08:08] LABS: Blood Morphology Comment NOT SEEN (NOT SEEN)
[2024-04-12] MEDS: FLU (Fluarix Triv) TS24-25(6MOS UP)/PF 45 MCG/0.5 ML Syringe IM ONE (08:15)
[2024-04-12] MEDS ORDERED: ASPIRIN EC 81 MG TAB PO ONE (08:25)
[2024-04-12] MEDS ORDERED: levETIRAcetam 500 MG TAB ONE (08:25)
[2024-04-12] MEDS ORDERED: METFORMIN HCL 500 MG TAB ONE (08:25)
[2024-04-12] MEDS ORDERED: FUROSEMIDE 20 MG TABLET ONE (08:25)
[2024-04-12] MEDS ORDERED: OSELTAMIVIR 75 MG CAP PO ONE (08:41)
[2024-04-12] MEDS: FUROSEMIDE 20 MG TABLET PO SCH (08:54)
[2024-04-12] MEDS: DULOXETINE 20 MG CAP PO SCH (08:54)
[2024-04-12] MEDS: ASPIRIN EC 81 MG TAB PO SCH (08:54)
[2024-04-12] MEDS: AMLODIPINE 5 MG TAB PO SCH (08:55)
[2024-04-12] MEDS: OSELTAMIVIR 30 MG CAP PO SCH (08:56)
[2024-04-12] MEDS: PNEUMOCOCCAL VACCINE 0.5 ML IMVAC ONE (09:00)
[2024-04-12] MEDS ORDERED: NA CHLORIDE 0.9% 1,000 ML ONE (09:18)
[2024-04-12] MEDS: NA CHLORIDE 0.9% 1,000 ML IV SCH (09:22)
--- NOTE | 2024-04-12 10:08 | P.CNS ---
Date of Consult: 04/12/24 Chief Complaint: weakness, SOB. History of Present Illness: Patient with PMH of CAD s/p CABG x2, bioprosthetic aortic valve, presented with malaise, generalized weakness associated with SOB and FOY, denies chest pain, no syncope, report occasional palpitations. Allergies No Known Allergies Allergy (Verified 01/28/23 06:56) Home medications list reviewed: Yes Home Medications: Metformin HCl [Glucophage*] 500 mg PO BIDWM 10/13/17 Amlodipine [Norvasc] 5 mg PO DAILY 08/31/21 Metoprolol Tartrate 50 mg PO BID 05/02/22 Duloxetine [Cymbalta *] 20 mg PO DAILY 10/03/22 Gabapentin 300 mg PO TID 10/03/22 Levothyroxine [Synthroid*] 1 [place] [address]/03/22 Aspirin 81 mg PO DAILY 01/24/23 Furosemide [Lasix] 20 mg PO DAILY 09/01/23 - Past Medical/Surgical History Diabetic: Yes -: DM -: HTN -: A Fib -: HLD -: skin cancer -: Afib -: aortic valve replacement 8 years ago -: right knee replacement Apr 2022 -: hernia repair -: hip replacement -: valve replacement-does not remember which valve -: Cardioversion -: Heart Valve Replacement - Family History Mother Medical History: Heart disease Notes: CHF Father Medical History: Heart disease - Social History Smoking Status: Former smoker Alcohol use: No CD- Drugs: No Caffeine use: Yes Review of Systems 10-point ROS is otherwise unremarkable Physical Examination Temp Pulse Resp BP Pulse Ox 97.6 F 55 19 119/56 L 96 04/12/24 08:00 04/12/24 08:55 04/12/24 08:00 04/12/24 08:55 04/12/24 08:00 General: Alert, In no apparent distress HEENT: Atraumatic, PERRLA, Mucous membr. moist/pink, EOMI, Sclerae nonicteric Neck: Supple, 2+ carotid pulse no bruit, No LAD, Without JVD or thyroid abnormality Respiratory: Clear to auscultation bilaterally, Normal air movement Cardiovascular: Regular rate/rhythm, Normal S1 S2 Gastrointestinal: Normal bowel sounds, No tenderness Musculoskeletal: No tenderness Integumentary: No rashes Neurological: Normal gait, Normal speech, Normal tone, Normal affect Lymphatics: No axilla or inguinal lymphadenopathy Laboratory Data (last 24 hrs) 04/11/24 04/11/24 04/11/24 11:00 11:00 11:00 WBC 9.80 Hgb 15.7 Hct 46.8 Plt Count 164 PT 12.8 H INR 1.22 Sodium 135 L Potassium 3.9 BUN 14 Creatinine 1.26 Glucose 162 H Magnesium 1.9 Total Bilirubin 1.0 AST 61 H ALT 54 Alkaline Phosphatase 109 - Problems (1) NSTEMI (non-ST elevated myocardial infarction) Current Visit: Yes Status: Acute Plan: although patient denies having chest pain, troponin is mild elevated with history of CAD and CABG. NPO for coronary angiogram ASA 81 mg daily Heparin drip. (2) History of aortic valve replacement with bioprosthetic valve Current Visit: Yes Status: Acute Plan: get Echo
[2024-04-13] MEDS: ENOXAPARIN 100 MG/ML SYR SQ SCH (05:00)
[2024-04-13 07:42] LABS: Anion Gap 6.2 mEq/L (5.0-15.0); Potassium 4.2 mEq/L (3.5-5.1)
[2024-04-13] MEDS: NA CHLORIDE 0.9% 500 ML ONE (08:51)
[2024-04-13] MEDS ORDERED: ENOXAPARIN 30 MG/0.3 ML SQ SCH (09:00)
[2024-04-13] MEDS ORDERED: HEPA 1000U/500MLS 2,000 UNIT/1,000 ML BAG IV ONE (09:43)
[2024-04-13] MEDS ORDERED: LIDOCAINE 1% 20 ML MDV ONE (09:43)
[2024-04-13] MEDS ORDERED: FENTANYL CITR 100 MCG/2 ML ONE (09:44)
[2024-04-13] MEDS ORDERED: MIDAZOLAM HCL 2 MG/2 ML INJ ONE (09:45)
[2024-04-13] MEDS ORDERED: FUROSEMIDE 20 MG/ 2ML VIAL ONE (11:02)
[2024-04-13] MEDS ORDERED: METHYLPREDNISOLONE 125 MG INJ ONE (11:10)
[2024-04-13] MEDS ORDERED: HYDRALAZINE HCL 20 MG/ML VIAL ONE (11:21)
[2024-04-13] MEDS ORDERED: METOPROLOL TARTRATE 5 MG/5 ML INJ IV ONE (11:21)
--- NOTE | 2024-04-13 11:27 | P.PN ---
Subjective Date of Service: 04/13/24 Chief Complaint: weakness, SOB. Subjective: No new changes, No C/O voiced, Tolerating diet, Ambulating, Improving Review of Systems 10-point ROS is otherwise unremarkable Physical Examination - Vital Signs Temperature: 97.2 F Blood Pressure: 143/72 Pulse: 70 Respirations: 20 Pulse Ox (%): 95 - Physical Exam General: Alert, In no apparent distress HEENT: Atraumatic, PERRLA, EOMI Neck: Supple, JVD not distended Respiratory: Clear to auscultation bilaterally, Normal air movement Cardiovascular: Regular rate/rhythm, Normal S1 S2 Gastrointestinal: Normal bowel sounds, No tenderness Musculoskeletal: No tenderness Integumentary: No rashes Neurological: Normal speech, Normal tone, Normal affect Lymphatics: No axilla or inguinal lymphadenopathy - Studies Microbiology Data (last 24 hrs): 04/11/24 12:51 Clean Catch Urine [place] Count - Final <10,000 CFU/ML. 04/11/24 12:51 Clean Catch Urine - Final MIXED ERI. Medications List Reviewed: Yes Assessment And Plan - Current Problems (Diagnosis) (1) NSTEMI (non-ST elevated myocardial infarction) Current Visit: Yes Status: Acute Plan: although patient denies having chest pain, troponin is mild elevated with history of CAD and CABG. Coronary angiogram done and shows moderate LM into LCX disease, occluded LAD with patent CAVAZOS-LAD and occluded RCA with occluded SVG-RPDA with left to right collaterals ASA 81 mg daily D/C Heparin drip. (2) History of aortic valve replacement with bioprosthetic valve Current Visit: Yes Status: Acute Plan: get Echo (3) Elevated brain natriuretic peptide (BNP) level Current Visit: Yes Status: Acute Plan: recommend diuresis with Lasix 40 mg IV BID while inpatient then switch back to home dose continue lopressor stop Norvasc start Spirnolactone 25 mg daily monitor input and output and electrolytes
--- NOTE | 2024-04-13 12:16 | EKG ---
Test Date: 2024-04-12 Test Time: 03:05:51 Burglary Investigator: AF MEASUREMENT RESULTS: Intervals: Rate: 73 TX: 194 QRSD: 96 QT: 402 QTc: 442 [place]: P: 45 TX: 194 QRS: 29 T: 77 INTERPRETIVE STATEMENTS: Normal sinus rhythm Inferior infarct, age undetermined Anterolateral infarct, age undetermined Abnormal ECG Compared to ECG 04/11/2024 11:46:30 No significant changes Electronically Signed On 04-13-24 12:13:02 MIDDLEWARE DEVELOPER by Russ Lynn
--- NOTE | 2024-04-13 12:19 | EKG ---
Test Date: 2024-04-11 Test Time: 11:46:30 General Farm Manager: AM MEASUREMENT RESULTS: Intervals: Rate: 89 MS: 184 QRSD: 92 QT: 334 QTc: 406 [place]: P: 38 MS: 184 QRS: 44 T: 79 INTERPRETIVE STATEMENTS: Normal sinus rhythm Anterior infarct, age undetermined Abnormal ECG Compared to ECG 09/01/2023 19:30:32 No significant changes Electronically Signed On 04-13-24 12:15:30 AUTO CRANE DRIVER by Russ Lynn
--- NOTE | 2024-04-13 14:03 | OP ---
Date of Procedure: 04/13/2024 Surgeon: Russ Lynn Procedure Performed: Selective coronary angiogram of bypass graft. Indication For Procedure: [id number] SD. Complications: None. Estimated Blood Loss: Less than 50 cc. Access: Right common femoral artery, closed by Mynx. Sedation Time: 30 minutes with 2 of Versed and 50 of fentanyl. Description Of Procedure: After risks, and benefits, and alternatives were explained to the patient, patient agreed to proceed with the procedure and signed informed consent. The patient was brought b [facility] to the laborer general, prepped and draped in sterile fashion. Time-out was performed. Sedation was ad ministered. Next, the right common femoral artery access was obtained using an ultrasound-guided reji ropuncture technique. A JL4 catheter was advanced to the aortic root. Selective angiogram of the le ft coronary artery system was done. Next, we tried a JR4 catheter, but it was unable to reach the __ due to significant tortuosity of the iliacs, so the 6-Kaz[place] sheath was exchanged with a 6-F rench destination 45 cm sheath and then after we advanced the JR4 catheter into the aortic root, natalio ctive angiogram of the right coronary system was done, that was later pulled back for selective angio gram of one of the grafts that was occluded and that later on pullback to the left subclavian artery. We exchanged it with the RONNIE catheter into the left subclavian for the selective CAVAZOS into LAD shot . At the end of procedure, catheter was removed. Sheath was removed and Mynx was applied. Hemostas is was achieved and patient was moved back to Recovery in stable condition. Findings: 1. Left main; short with distal 60% to 70% disease into the left circ. Heavy calcified. 2. LAD; proximal 80% disease, then mid occluded, gets full by the CAVAZOS. The mid to distal LAD got di ffuse 60% to 70% diseased small artery. 3. Left circ; proximal mild luminal irregularities with mid 40% disease and mild luminal irregulariti es, gives collaterals to the RCA. 4. RCA; proximal occluded with [id number] collaterals into RPDA. Grafts: 1. Left subclavian artery is very tortuous, calcified, but the CAVAZOS to LAD is patent. 2. We are unable to identify another SVG graft, so it is most likely occluded. Assessment And Plan: Significant [place] CAD with patent CAVAZOS to LAD and moderate left main into left circ disease. The plan is to continue medical management. If the patient is symptomatic, then we will consider out patient stress test to consider a revascularization of the left main into the left circ. JESSIE/ALFRED Voice ID: [id number] Report ID: [id number]
--- NOTE | 2024-04-13 14:19 | HP ---
Date of Admission: 04/12/2024 Chief Complaint: Feeling weak, tired, and body ache. History Of Present Illness: This is an 83-year-old male patient, who was feeling fine in his normal usual state of health until yesterday, he started to have generalized weakness, body ache, and feelin g weak, and he was brought into emergency room and after he was evaluated, he was diagnosed as having influenza A and was admitted to hospital. When I saw him this morning, he was still in emergency ro om. Overnight, his second troponin level came back elevated around 140 and he never had any chest pa in complaint. He was given 1 dose of Lovenox 100 mg subcutaneously for this elevated troponin level. When I saw him, he did not have any other specific cardiac complaints. Physical Examination: Vital Signs: Height 5 feet 8 inches, weight 230 pounds, temperature 97.8, pulse 65, respiratory rate 19, blood pressure 107/53, oxygen saturation 94% on 2 L nasal cannula oxygen. General: Awake, alert, oriented, not in distress. HEENT: Head atraumatic, normocephalic. Conjunctivae nonerythematous. Sclerae white. Mouth, no thr ush or edema noted. Ears/Nose, no mass, lesion, discharge noted. Neck: Supple. No JVD, lymph nodes, bruit, thyromegaly noted. Lungs: Bilateral good equal air entry. Clear to auscultation. No rhonchi. No rales. Heart: Normal heart sounds, no murmur or gallop. Abdomen: Soft, bowel sounds normal. No guarding, rigidity, tenderness, mass, hepatosplenomegaly, dis tention, or bruit noted. Extremities: No leg edema. No calf tenderness. Skin: No rash, ulcer, cellulitis. Lymphatics: No lymph node enlargement in neck, supraclavicular, infraclavicular region. Neuro: No focal neurological deficit. Chest: Unremarkable. External Genitalia: Deferred. Rectal: Deferred. Laboratory Data: Yesterday, WBC 9.8, hemoglobin 15.7, platelets 164. This morning, WBC 8.4, hemoglo bin 14.6, platelets 163. For chemistry yesterday, sodium 135, potassium 3.9, chloride 101, bicarb 27 , BUN 14, creatinine 1.26, glucose 162, lactic acid 1.9. Liver function tests unremarkable except T 61. Initial troponin 16.6, second troponin 13, third troponin 15.8, and fourth troponin during nig httime was 140.5. ProBNP 4779. This morning, sodium 134, potassium 3.8, chloride 103, bicarb 24, BU N 27, creatinine 1.46, glucose 227. ProBNP 3404. Influenza A test positive. Chest x-ray, no acute intrathoracic changes. CAT scan of the head, no acute intracranial changes. Impression: 1. Influenza A. 2. Non-STEMI. 3. Hypertension. 4. Hyperlipidemia. 5. Type 2 diabetes mellitus. 6. Coronary artery disease. 7. Hypothyroidism. Plan: We will go ahead and admit the patient to hospital for further evaluation and management of th is problem. The patient is appropriate for inpatient and is expected to spend 2 midnights in the [facility]. For influenza, we will start him on Tamiflu per order. Considering his creatinine has gone u p and creatinine clearance, we will reduce the dose of Tamiflu from 75 mg twice a day to 30 mg twice a day. For his non-STEMI, we will continue Lovenox per order and consult Cardiology. For diabetes, we will continue his diabetes medication per order. No need for further intervention except monitori ng. For hypertension, we will continue his medications per order. Monitor blood pressure. If neces dianelys, adjust medication. For hyperlipidemia, we will continue his statin therapy per order and no ne ed for any further intervention on that. Total time spent was 85 minutes including communication with emergency room physician, review of roni gency room visit record, review of last hospital admission record, review of last office visit record , and performing today's evaluation and management. NIKI/MODL Voice ID: [id number]
[2024-04-13] MEDS ORDERED: ENOXAPARIN 100 MG/ML SYR SQ SCH (15:20)
[2024-04-13] MEDS: IPRATROPIUM BROM 0.5MG/2.5ML NEB PRN (22:45)
[2024-04-13] MEDS: ALBUTEROL 2.5 MG/3 ML NEB SOL NEB PRN (22:45)
[2024-04-14 05:05] LABS: Absolute Lymphocytes (CBC) 0.7 K/uL (0.7-4.9); Absolute Monocytes 0.4 K/uL (0.1-1.3); Absolute Neutrophil 10.6 K/uL (1.8-8.0); Basophils % 0.2 % (0-1.3); Hemoglobin 14.6 g/dL (13.6-17.9); MCHC 34.8 g/dL (32.0-36.0); MPV 9.6 fL (7.6-11.3); Monocytes % 3.7 % (3.3-12.3); Platelets 180 thou/uL (152-406); RBC Red Blood Cell Count 4.73 M/uL (4.33-5.43); Red Cell Distribution Width 14.3 % (12.1-15.2)
[2024-04-14 05:18] LABS: Albumin/Globulin Ratio 0.6 (1.1-1.8); Anion Gap 10.8 mEq/L (5.0-15.0); Bilirubin Total 0.4 mg/dL (0.2-1.0); Globulin 4.7 g/dL (2.3-3.5); Magnesium 2.1 mg/dL (1.6-2.4); Potassium 3.8 mEq/L (3.5-5.1); Protein, Total 7.7 g/dL (6.4-8.2)
[2024-04-14 05:20] LABS: Neutrophils % 90.1 % (41.7-73.7)
--- NOTE | 2024-04-14 06:14 | PN ---
Date of Progress Note: 04/13/2024 Subjective: The patient was seen this morning for followup. He was sleeping, easily arousable, not in distress. Denies any chest pain, shortness of breath. No nausea, vomiting. Objective: Vital Signs: Reviewed. HEENT: Unremarkable. Lungs: Clear to auscultation. Heart: Sounds normal. Abdomen: Soft. Bowel sounds normal. No guarding, rigidity, tenderness, distention. Extremities: No leg edema. Laboratory Data: Sodium 140, potassium 4.2, chloride 108, bicarb 30, BUN 32, creatinine 1.22, glucos e 119. Impression: 1. Non-STEMI. 2. Coronary artery disease. 3. Hypertension. 4. Diabetes mellitus. 5. Chronic diastolic heart failure with acute exacerbation. Plan: After I saw the patient, I discontinued his metformin in view of cardiac cath, which was going to be done today and Dr. Lynn did call me after the cardiac cath was done and he informed me that the patient actually had some wheezing while he was on the cardiac cath table and he gave him 1 dose of Lasix which he responded well and the patient has coronary artery disease, but no intervention nee ded. Medical management was suggested and I will see him tomorrow for followup. Plan is to possibly discharge him to go home tomorrow depending on his condition. We will continue his antiviral for influenza. NIKI/MODL Voice ID: [id number] Report ID: [id number]
[2024-04-14] MEDS: FUROSEMIDE 40 MG/4 ML VIAL IV ONE (09:36)
[2024-04-14] MEDS: ENOXAPARIN 40 MG/0.4 ML SQ SCH (09:37)
--- NOTE | 2024-04-14 09:51 | P.PN ---
Subjective Date of Service: 04/14/24 Chief Complaint: weakness, SOB. Subjective: No new changes, No C/O voiced, Tolerating diet, Ambulating, Improving Review of Systems 10-point ROS is otherwise unremarkable Physical Examination - Vital Signs Temperature: 97.1 F Blood Pressure: 168/81 Pulse: 78 Respirations: 20 Pulse Ox (%): 96 - Physical Exam General: Alert, In no apparent distress HEENT: Atraumatic, PERRLA, EOMI Neck: Supple, JVD not distended Respiratory: Clear to auscultation bilaterally, Normal air movement Cardiovascular: Regular rate/rhythm, Normal S1 S2 Gastrointestinal: Normal bowel sounds, No tenderness Musculoskeletal: No tenderness Integumentary: No rashes Neurological: Normal speech, Normal tone, Normal affect Lymphatics: No axilla or inguinal lymphadenopathy - Studies Microbiology Data (last 24 hrs): 04/11/24 12:51 Clean Catch Urine [place] Count - Final <10,000 CFU/ML. 04/11/24 12:51 Clean Catch Urine - Final MIXED ERI. Medications List Reviewed: Yes Assessment And Plan - Current Problems (Diagnosis) (1) NSTEMI (non-ST elevated myocardial infarction) Current Visit: Yes Status: Acute Plan: although patient denies having chest pain, troponin is mild elevated with history of CAD and CABG. Coronary angiogram done and shows moderate LM into LCX disease, occluded LAD with patent CAVAZOS-LAD and occluded RCA with occluded SVG-RPDA with left to right collaterals ASA 81 mg daily outpatient stress test to check on need for revascularization of LM into LCX (2) History of aortic valve replacement with bioprosthetic valve Current Visit: Yes Status: Acute Plan: outpatient Echo (3) Elevated brain natriuretic peptide (BNP) level Current Visit: Yes Status: Acute Plan: patient recieved one dose of Lasix 40 mg IV x1 yesterday, advise to give another dose of lasix today continue lopressor stop Norvasc start Spirnolactone 25 mg daily monitor input and output and electrolytes
[2024-04-14 14:52] VITALS: O2SAT 97
--- NOTE | 2024-04-14 20:44 | PN ---
Date of Progress Note: 04/14/2024 Subjective: The patient was seen this morning for followup. He was lying in bed, not in distress. Denies any new complaints. No chest pain, shortness of breath. Objective: Vital Signs: Reviewed. HEENT: Unremarkable. Lungs: Bilateral good equal air entry with presence of some wheezing noted in lower lung torrez. No t using accessory muscles of respiration. Heart: Sounds normal. Abdomen: Soft. Bowel sounds normal. No guarding, rigidity, tenderness, or distention. Extremities: No leg edema. Laboratory Data: WBC 11.8, hemoglobin 14.6, platelets 180. Sodium 135, potassium 3.8, chloride 103, bicarb 25, BUN 33, creatinine 1.36, glucose 194. LDL cholesterol 71, triglyceride 135, HDL choleste rol 33. Impression: 1. Coronary artery disease. 2. Chronic diastolic heart failure, with acute exacerbation. 3. Influenza A. 4. Hypertension. 5. Type 2 diabetes mellitus. Plan: We will go ahead and consult Physical Therapy to help ambulate the patient. Give the patient Lasix 40 mg IV this morning. Reduce Lovenox dose to 40 mg subcutaneous injection daily. Increase ro suvastatin to 20 mg daily at bedtime and we will repeat blood work tomorrow morning. Possible discharge to go home tomorrow and details were discussed with the patient . NIKI/MODL Voice ID: [id number] Report ID: [id number]
[2024-04-14] MEDS: OSELTAMIVIR 30 MG CAP PO SCH (20:55)
[2024-04-14] MEDS: ROSUVASTATIN 10 MG TAB PO SCH (20:56)
[2024-04-15 05:21] LABS: Absolute Basophils 0.1 K/uL (0-0.5); Absolute Monocytes 0.8 K/uL (0.1-1.3); Absolute Neutrophil 7.6 K/uL (1.8-8.0); Basophils % 0.9 % (0-1.3); Eosinophils % 0.3 % (0-4.4); Hematocrit 45.5 % (39.6-49.0); Hemoglobin 15.2 g/dL (13.6-17.9); MCHC 33.4 g/dL (32.0-36.0); MCV 89.6 fL (80-100); MPV 9.4 fL (7.6-11.3); Neutrophils % 71.8 % (41.7-73.7); Nucleated Red Blood Cells % 0.2 % (0-0); Platelets 170 thou/uL (152-406); RBC Red Blood Cell Count 5.08 M/uL (4.33-5.43); Red Cell Distribution Width 14.4 % (12.1-15.2)
[2024-04-15 05:33] LABS: Anion Gap 10.5 mEq/L (5.0-15.0); Magnesium 2.3 mg/dL (1.6-2.4); Potassium 3.5 mEq/L (3.5-5.1)
[2024-04-15 09:37] VITALS: BP 113/64; TEMP 97.5
--- NOTE | 2024-04-19 06:57 | DS ---
Date of Discharge: 04/15/2024 Discharge Medications And Instructions: 1. The patient/family to nut picker list of medications from my office today upon discharge. 2. Follow up in my office next week. 3. Follow up with Dr. Lynn in 2 weeks. Physical Examination: HEENT: Unremarkable. Lungs: Clear to auscultation. Heart: Sounds normal. Abdomen: Soft. Bowel sounds normal. No guarding, rigidity, tenderness, distention. Extremities: No leg edema. Laboratory Data: Upon admission on 04/11/2024, WBC count was 9.8, hemoglobin 15.7, platelets 164. L ast CBC on 04/15/2024 was 10.5, hemoglobin 15.2, platelets 170. Chemistry: Last chemistry on 2024, sodium 136, potassium 3.5, chloride 102, bicarb 27, BUN 37, creatinine 1.19, glucose 133, and c holesterol from 04/14/2024, triglyceride was 135, total cholesterol 131, HDL 71. Upon admission, sod ium 135, potassium 3.9, chloride 101, bicarb 27, BUN 14, creatinine 1.26. Lactic acid 1.9. Liver fu nction tests unremarkable except AST 61. Initial troponin 16.6, second troponin 13, third troponin 1 5.8, fourth troponin 140.5, and last troponin 277. Hospital Course: This is an 83-year-old pleasant male patient who came into emergency room with comp laints of feeling weak, tired and body ache. After the patient was evaluated in the emergency room, he was admitted to the hospital. The patient was admitted with influenza A and was given Tamiflu for treatment of influenza. He initially had normal cardiac enzyme, but subsequent cardiac enzymes came back elevated indicating non-STEMI. Lovenox was given. Cardiology consultation was requested from Dr. Lynn who did cardiac cath on him and found evidence of coronary artery disease, but no interven tion was done and he has suggested medical management and outpatient followup. The patient is on sta tin therapy, but he will need high dose statin therapy, so I have increased dose of rosuvastatin to 2 0 mg daily upon discharge. He was also noted to have diastolic congestive heart failure in form of s ome wheezing and crackles after his cardiac cath and he was given Lasix on outpatient basis. We will also continue oral furosemide. Once patient's condition improved, we were able to discharge him to go home and Social Service was consulted to help make arrangements for outpatient home health and irina e physical therapy. Final Diagnoses: 1. Influenza A. 2. Non-STEMI. 3. Coronary artery disease. 4. Hypertension. 5. Hyperlipidemia. 6. Type 2 diabetes mellitus. 7. Hypothyroidism. Total time spent, 40 minutes. NIKI/ALFRED Voice ID: [id number] Report ID: [id number]
== END 2024-04-15 09:30 | disposition home health service (06) | DRG 193 ==
LOC: ER 09:49 → ERHOLD 16:58 → 2ND 04-12 14:45
PROVIDERS: ADMIT Internal Medicine; ATTEND Internal Medicine
PROC: B21F1ZZ Fluoroscopy of Other Bypass Graft using Low Osmolar Contrast (ICD-10-PCS; principal; 2024-04-13)
PROC: B2111ZZ Fluoroscopy of Multiple Coronary Arteries using Low Osmolar Contrast (ICD-10-PCS; 2024-04-13)
DX: J09.X2 Influenza due to identified novel influenza A virus with other respiratory manifestations (principal); I21.4 Non-ST elevation (NSTEMI) myocardial infarction; I50.33 Acute on chronic diastolic (congestive) heart failure; I11.0 Hypertensive heart disease with heart failure; E03.9 Hypothyroidism, unspecified; I48.91 Unspecified atrial fibrillation; E78.5 Hyperlipidemia, unspecified; E11.9 Type 2 diabetes mellitus without complications; F03.90 Unspecified dementia, unspecified severity, without behavioral disturbance, psychotic disturbance, mood disturbance, and anxiety; I25.10 Atherosclerotic heart disease of native coronary artery without angina pectoris; Z95.2 Presence of prosthetic heart valve; Z95.1 Presence of aortocoronary bypass graft; Z88.8 Allergy status to other drugs, medicaments and biological substances; Z79.82 Long term (current) use of aspirin; Z11.52 Encounter for screening for COVID-19; Z79.84 Long term (current) use of oral hypoglycemic drugs; Z79.890 Hormone replacement therapy; Z96.651 Presence of right artificial knee joint; Z79.899 Other long term (current) drug therapy; Z96.649 Presence of unspecified artificial hip joint; Z87.891 Personal history of nicotine dependence; Z85.828 Personal history of other malignant neoplasm of skin
CPT/HCPCS: 36415; 70450; 71045; 76937; 80048; 80053; 80061; 80076; 81001; 82947; 83605; 83735; 83880; 84100; 84484; 85025; 85610; 87040; 87086; 87088; 87205; 87804; 87811; 93005; 93459; 94760; 96365; 96372; 96375; 97116; 97161; 99152; 99285; C1760; C1769; C1893; J0360; J1650; J1940; J2003; J2250; J2470; J2919; J3010; J7030; J7040; J7050; J7613; J7644; Q9967

== ENCOUNTER 2024-04-18 11:29 | Observation (INO) | payer OTHER ==
[2024-04-18] MEDS ORDERED: NA CHLORIDE 0.9% 500 ML ONE ×3 (11:37→15:41)
[2024-04-18 12:15] LABS: Absolute Basophils 0.1 K/uL (0-0.5); Absolute Eosinophils 0.6 K/uL (0-0.5); Absolute Lymphocytes (CBC) 1.9 K/uL (0.7-4.9); Absolute Monocytes 1.1 K/uL (0.1-1.3); Absolute Neutrophil 8.1 K/uL (1.8-8.0); Basophils % 1.1 % (0-1.3); Eosinophils % 4.9 % (0-4.4); Hematocrit 45.6 % (39.6-49.0); Hemoglobin 15.7 g/dL (13.6-17.9); Lymphocytes % 15.8 % (15.3-44.8); MCH 30.8 pg (27.0-35.0); MCHC 34.5 g/dL (32.0-36.0); MCV 89.2 fL (80-100); MPV 9.3 fL (7.6-11.3); Monocytes % 9.7 % (3.3-12.3); Neutrophils % 68.5 % (41.7-73.7); Platelets 195 thou/uL (152-406); RBC Red Blood Cell Count 5.11 M/uL (4.33-5.43); Red Cell Distribution Width 14.1 % (12.1-15.2)
[2024-04-18 12:33] LABS: Anion Gap 10.4 mEq/L (5.0-15.0); Potassium 3.4 mEq/L (3.5-5.1)
--- NOTE | 2024-04-18 13:35 | RAD REPORT ---
EXAMINATION: ONE VIEW CHEST XR CLINICAL INDICATION: weakness, recent flu with pulmonary edema TECHNIQUE: Frontal chest projection is submitted. Examination is limited by patient positioning and t echnique. COMPARISON: 04/11/2024, 11/01/2023 FINDINGS: The lungs are well inflated and clear. The heart is enlarged with a tortuous thoracic aorta. No displ aced fractures identified. Sternotomy wires. IMPRESSION: No acute intrathoracic abnormalities.
--- NOTE | 2024-04-18 17:39 | ER ---
Nurse's Notes [facility] Name: Franklin Castro Age: 83 yrs Sex: Male : 1940 Arrival Date: 04/18/2024 Time: 11:29 Bed 8 Private MD: Diagnosis: Orthostatic hypotension Presentation: 04/18 11:30 Chief complaint: EMS states: Pt c/o dizziness when standing and [facility], was d/c from hospital on after being admitted for the flu. Coronavirus screen: Vaccine status: Patient reports receiving the 2nd dose of the covid vaccine. Ebola Screen: No symptoms or risks identified at this time. Initial Sepsis Screen: Does the patient meet any 2 criteria? No. Patient's initial sepsis screen is negative. Does the patient have a suspected source of infection? No. Patient's initial sepsis screen is negative. Risk Assessment: Do you want to hurt yourself or someone else? Patient reports no desire to harm self or others. Onset of symptoms was April 18, 2024. 11:30 [facility] 11:30 Acuity: JIMY 3 ph Triage Assessment: 11:33 General: Appears in no apparent distress. comfortable, well groomed, Behavior is calm, ph cooperative, appropriate for age. Pain: Denies pain. Neuro: Level of Consciousness is awake, alert, obeys commands, Oriented to person, place, time, situation, Reports dizziness. Derm: Skin is pink, warm \T\ dry. Historical: - Allergies: 11:32 Unknown antihypertensive medication; ph - Home Meds: 11:32 amlodipine 5 mg tablet 1 tab daily [Active]; aspirin 325 mg Oral capsule 1 cap daily [Active]; duloxetine 20 mg Oral capsule 1 cap daily [Active]; levetiracetam 500 mg Oral tablet 1 tab 2 times per day [Active]; levothyroxine 125 mcg capsule [Active]; metformin 500 mg Oral tablet 1 tab daily [Active]; metoprolol tartrate 50 mg Oral tablet 2 times per day [Active]; Metoprolol Tartrate Oral [Active]; rosuvastatin 5 mg Oral tablet 1 tab nightly [Active]; - PMHx: 11:32 Dementia; Diabetes - NIDDM; Hypertension; Hypothyroidism; Subdural frontal bleed; ph throat cancer; - PSHx: 11:32 heart surgery; knee replacement; Tonsillectomy; ph - Immunization history:: Adult Immunizations unknown. - Infectious Disease History:: Denies. - Social history:: Smoking status: unknown. - Family history:: not pertinent. - Hospitalizations: : The patient was recently seen at [facility]. Screenin:33 [facility] ED Fall Risk Assessment (Adult) History of falling in the last 3 months, ph including since admission No falls in past 3 months (0 pts) Confusion or Disorientation No (0 pts) Intoxicated or Sedated No (0 pts) Impaired Gait Yes (1 pt) Mobility Assist Device Used Yes (1 pt) Altered Elimination No (0 pt) Score/Fall Risk Level 0 - 2 = Low Risk Oriented to surroundings, Maintained a safe environment, Hourly rounding (assess needs \T\ fall precautionary measures) done. Abuse screen: Denies threats or abuse. Denies injuries from another. Nutritional screening: No deficits noted. Tuberculosis screening: No symptoms or risk factors identified. Assessment: 11:40 General: Appears in no apparent distress. Behavior is calm, cooperative. Pain: Denies iw pain. Neuro: Level of Consciousness is awake, alert, obeys commands, Oriented to person, place, time, situation, Moves all extremities. Full function. Neuro: Reports dizziness, a syncopal episode. Cardiovascular: Denies chest pain, Patient's skin is warm and dry. Respiratory: Respiratory effort is even, unlabored, Respiratory pattern is regular, symmetrical. GI: Abdomen is non-distended. Derm: Skin is intact, is fragile, is thin. Musculoskeletal: Range of motion: intact in all extremities. 12:32 Reassessment: Patient appears in no apparent distress at this time. Patient and/or iw family updated on plan of care and expected duration. Pain level reassessed. Patient is alert, oriented x 3, equal unlabored respirations, skin warm/dry/pink. 14:10 Reassessment: Patient appears in no apparent distress at this time. Patient and/or ph family updated on plan of care and expected duration. Pain level reassessed. Patient is alert, oriented x 3, equal unlabored respirations, skin warm/dry/pink. Pt resting quietly, lying on L side, VSS. 15:15 Reassessment: Patient appears in no apparent distress at this time. Patient and/or jb4 family updated on plan of care and expected duration. Pain level reassessed. Patient is alert, oriented x 3, equal unlabored respirations, skin warm/dry/pink. 16:15 Reassessment: Patient appears in no apparent distress at this time. Patient and/or jb4 family updated on plan of care and expected duration. Pain level reassessed. Patient is alert, oriented x 3, equal unlabored respirations, skin warm/dry/pink. 17:15 Reassessment: Patient appears in no apparent distress at this time. Patient and/or jb4 family updated on plan of care and expected duration. Pain level reassessed. Patient is alert, oriented x 3, equal unlabored respirations, skin warm/dry/pink. 18:15 Reassessment: Patient appears in no apparent distress at this time. Patient and/or jb4 family updated on plan of care and expected duration. Pain level reassessed. Patient is alert, oriented x 3, equal unlabored respirations, skin warm/dry/pink. Vital Signs: 11:30 BP 135 / 94; Pulse 77; Resp 18; Temp 97.8(O); Pulse Ox 98% on R/A; Weight 104.33 kg; ph Height 5 ft. 8 in. ; 12:29 BP 124 / 80 Supine; Pulse 80; Resp 25; Pulse Ox 97% ; cc6 12:31 BP 119 / 83 Sitting; Pulse 83; Resp 23; Pulse Ox 95% on R/A; cc6 12:33 BP 83 / 57; Pulse 94; Resp 30; Pulse Ox 95% on R/A; cc6 13:00 BP 149 / 85; Pulse 88; Resp 18; Pulse Ox 98% on R/A; ph 13:39 BP 118 / 84; rn 14:00 BP 118 / 84; Pulse 81; Resp 20; Pulse Ox 95% on R/A; ph 15:32 BP 122 / 77 Supine; Pulse 80; Resp 22; Pulse Ox 98% on R/A; ph 15:32 BP 97 / 75 Sitting; Pulse 84; ph 15:32 BP 90 / 64 Standing; Pulse 86; ph 17:08 BP 134 / 74; Pulse 64; Resp 19; Pulse Ox 93% on R/A; iw 18:00 BP 133 / 75; Pulse 67; Resp 16; Pulse Ox 94% on R/A; jb4 11:30 Body Mass Index 34.97 (104.33 kg, 172.72 cm) ph ED Course: 11:30 Patient arrived in ED. sb4 11:30 Joselo Tello MD is Attending Physician. rn 11:32 Triage completed. ph 11:33 Arm band placed on Patient placed in an exam room, on a stretcher, on security monitor, ph on pulse oximetry. 11:34 Patient has correct armband on for positive identification. Bed in low position. Call ph light in reach. Side rails up X 1. personnel monitor on. Pulse ox on. NIBP on. Door closed. Noise minimized. Warm blanket given. 11:58 Missed attempt(s): 22 gauge in right antecubital area. Bleeding controlled, band aid ph applied, catheter tip intact. Missed attempt(s): 22 gauge in left antecubital area. Bleeding controlled, band aid applied, catheter tip intact. 12:09 Nicole Garvin, RN is Primary Nurse. iw 12:09 Initial lab(s) drawn, by me, sent to lab. Inserted saline lock: 22 gauge in left hand, iw using aseptic technique. Blood collected. Flushed with 10 mL NS. 13:24 XRAY Chest (1 view) In Process Unspecified. EDMS 17:38 Zuly Jones MD is Hospitalizing Provider. rn Administered Medications: 12:09 Drug: NS 0.9% IV 500 ml 500 ml IV at 1 bolus once; to be given as a bolus over 30 iw minutes Volume: 500 ml; Route: IV; Rate: 1 bolus; Site: left hand; 12:40 Follow up: Response: No adverse reaction; IV Status: Completed infusion; IV Intake: ph 500ml 14:10 Drug: NS 0.9% IV 500 ml 500 ml IV at 1 bolus once; to be given as a bolus over 30 ph minutes Volume: 500 ml; Route: IV; Rate: 1 bolus; Site: left hand; 15:52 Drug: NS 0.9% IV 500 ml 500 ml IV at 1 bolus once; to be given as a bolus over 30 jb4 minutes Volume: 500 ml; Route: IV; Rate: 1 bolus; Site: left hand; 18:01 Drug: midodrine 2.5 mg PO once Route: PO; jb4 Medication: 11:34 VIS not applicable for this client. ph Intake: 12:40 IV: 500ml; Total: 500ml. ph Outcome: 17:39 Decision to Hospitalize by Provider. rn 19:38 Patient left the ED. br2 Signatures: Dispatcher [employer] Nicole Sultana, RN Joselo Medley MD MD rn Hall, Patricia, RN RN ph Bryson, James, RN RN jb4 Brown, Sophia, PA-C PA-C sb4 Amanda Bazzi RN RN br2 Viridiana Goff cc6
--- NOTE | 2024-04-18 17:39 | EDPHYS ---
Physician Documentation [facility] Name: Franklin Castro Age: 83 yrs Sex: Male : 1940 Arrival Date: 04/18/2024 Time: 11:29 Bed 8 Private MD: ED Physician Joselo Tello HPI: 04/18 11:59 This 83 yrs old Male presents to ER via EMS with complaints of Dizziness. rn 11:59 The patient presents with dizziness, generalized weakness, lightheadedness. Onset: The rn symptoms/episode began/occurred today. Modifying factors: The symptoms are alleviated by lying down, the symptoms are aggravated by standing up, changing position. Severity of symptoms: At their worst the symptoms were moderate in the emergency department the symptoms have improved. The patient has not experienced similar symptoms in the past. The patient has been recently been admitted at [facility]. Patient reports at latter-day today and when standing up felt lightheaded, feels generalized weakness and malaise. Improves when he sits down or lays down. No focal neurological deficit. No head injury or trauma. Recently admitted to the hospital for flu and discharged 3 days ago. Patient reports still not great appetite. Denies any vomiting or diarrhea. No chest pain or shortness of breath. No abdominal pain.. Historical: - Allergies: 11:32 Unknown antihypertensive medication; ph - Home Meds: 11:32 amlodipine 5 mg tablet 1 tab daily [Active]; aspirin 325 mg Oral capsule 1 cap daily ph [Active]; duloxetine 20 mg Oral capsule 1 cap daily [Active]; levetiracetam 500 mg Oral tablet 1 tab 2 times per day [Active]; levothyroxine 125 mcg capsule [Active]; metformin 500 mg Oral tablet 1 tab daily [Active]; metoprolol tartrate 50 mg Oral tablet 2 times per day [Active]; Metoprolol Tartrate Oral [Active]; rosuvastatin 5 mg Oral tablet 1 tab nightly [Active]; - PMHx: 11:32 Dementia; Diabetes - NIDDM; Hypertension; Hypothyroidism; Subdural frontal bleed; ph throat cancer; - PSHx: 11:32 heart surgery; knee replacement; Tonsillectomy; ph - Immunization history:: Adult Immunizations unknown. - Infectious Disease History:: Denies. - Social history:: Smoking status: unknown. - Family history:: not pertinent. - Hospitalizations: : The patient was recently seen at [facility]. ROS: 11:59 Constitutional: Negative for fever, chills, and weight loss, Neck: Negative for injury, rn pain, and swelling, Cardiovascular: Negative for chest pain, palpitations, and edema, Respiratory: Negative for shortness of breath, cough, wheezing, and pleuritic chest pain, Abdomen/GI: Negative for abdominal pain, nausea, vomiting, diarrhea, and constipation, Back: Negative for injury and pain, MS/Extremity: Negative for injury and deformity, Skin: Negative for injury, rash, and discoloration, Neuro: Negative for headache, numbness, tingling, and seizure, Exam: 11:59 Constitutional: This is a well developed, well nourished patient who is awake, alert, rn and in no acute distress. Head/Face: Normocephalic, atraumatic. ENT: Dry mucous membranes Cardiovascular: Regular rate and rhythm. No pulse deficits. Respiratory: No increased work of breathing, no retractions or nasal flaring. Abdomen/GI: Soft, non-tender MS/ Extremity: Pulses equal, no cyanosis. Neurovascular intact. Full, normal range of motion. Equal circumference. Neuro: Awake and alert, GCS 15, oriented to person, place, time, and situation. Cranial nerves II-XII grossly intact. Motor strength 4/5 in all extremities. Sensory grossly intact. Vital Signs: 11:30 BP 135 / 94; Pulse 77; Resp 18; Temp 97.8(O); Pulse Ox 98% on R/A; Weight 104.33 kg; ph Height 5 ft. 8 in. ; 12:29 BP 124 / 80 Supine; Pulse 80; Resp 25; Pulse Ox 97% ; cc6 12:31 BP 119 / 83 Sitting; Pulse 83; Resp 23; Pulse Ox 95% on R/A; cc6 12:33 BP 83 / 57; Pulse 94; Resp 30; Pulse Ox 95% on R/A; cc6 13:00 BP 149 / 85; Pulse 88; Resp 18; Pulse Ox 98% on R/A; ph 13:39 BP 118 / 84; rn 14:00 BP 118 / 84; Pulse 81; Resp 20; Pulse Ox 95% on R/A; ph 15:32 BP 122 / 77 Supine; Pulse 80; Resp 22; Pulse Ox 98% on R/A; ph 15:32 BP 97 / 75 Sitting; Pulse 84; ph 15:32 BP 90 / 64 Standing; Pulse 86; ph 17:08 BP 134 / 74; Pulse 64; Resp 19; Pulse Ox 93% on R/A; iw 18:00 BP 133 / 75; Pulse 67; Resp 16; Pulse Ox 94% on R/A; jb4 11:30 Body Mass Index 34.97 (104.33 kg, 172.72 cm) ph MDM: 11:30 Medical Screening Exam initiated rn 17:38 Differential diagnosis: generalized weakness, near-syncope, Orthostatic hypotension. rn Data reviewed: vital signs, nurses notes, lab test result(s), radiologic studies, plain films, and as a result, I will admit patient. Consideration of Admission/Observation Patient was admitted/placed on observation. Escalation of care including admission/observation considered. Counseling: I had a detailed discussion with the patient and/or guardian regarding the historical points, exam findings, and any diagnostic results supporting the discharge/admit diagnosis, lab results, radiology results, the need for further work-up and treatment in the hospital. Response to treatment: the patient's symptoms have mildly improved after treatment. ED course: Patient still orthostatic when standing, despite fluid resuscitation with 2 L. 04/18 11:31 Order name: CBC with Diff; Complete Time: 12:34 rn 04/18 11:31 Order name: Basic Metabolic Panel; Complete Time: 12:34 rn 04/18 11:31 Order name: BNP; Complete Time: 12:34 rn 04/18 11:31 Order name: XRAY Chest (1 view); Complete Time: 13:39 rn 04/18 11:31 Order name: IV Start; Complete Time: 12: rn 04/18 11:31 Order name: Cardiac monitoring; Complete Time: : rn 04/18 11:31 Order name: O2 Sat Monitoring; Complete Time: : rn 04/18 11:31 Order name: EKG - Nurse/Tech; Complete Time: : rn 04/18 11:32 Order name: Orthostatics; Complete Time: 12:42 rn Administered Medications: 12: Drug: NS 0.9% IV 500 ml 500 ml IV at 1 bolus once; to be given as a bolus over 30 iw minutes Volume: 500 ml; Route: IV; Rate: 1 bolus; Site: left hand; 12:40 Follow up: Response: No adverse reaction; IV Status: Completed infusion; IV Intake: ph 500ml 14:10 Drug: NS 0.9% IV 500 ml 500 ml IV at 1 bolus once; to be given as a bolus over 30 ph minutes Volume: 500 ml; Route: IV; Rate: 1 bolus; Site: left hand; 15:52 Drug: NS 0.9% IV 500 ml 500 ml IV at 1 bolus once; to be given as a bolus over 30 jb4 minutes Volume: 500 ml; Route: IV; Rate: 1 bolus; Site: left hand; 18:01 Drug: midodrine 2.5 mg PO once Route: PO; jb4 Disposition Summary: 04/18/24 17:39 Hospitalization Ordered Notes: Hospitalization Status: Observation rn Provider: Zuly Jones rn Location: Telemetry/MedSurg (observation) rn Condition: Stable rn Problem: new rn Symptoms: have improved rn Bed/Room Type: Standard rn Room Assignment: 222(04/18/24 17:57) eb Diagnosis - Orthostatic hypotension rn Forms: - Medication Reconciliation Form rn - SBAR form rn - Leadership Thank You Letter rn Signatures: Dispatcher [employer] Nicole Sultana RN RN Joselo Koch MD MD rn Hall, Patricia, RN RN ph Bryson, James, RN RN Marlene Beltre Corrections: (The following items were deleted from the chart) 11:32 11:32 Chest Single View+RAD.RAD.BRZ ordered. [facility] EDMO 17:57 17:39 rn eb
[2024-04-18] MEDS ORDERED: MIDODRINE HCL 5 MG TABLET ONE (17:55)
[2024-04-18] MEDS ORDERED: ONDANSETRON 4 MG/2 ML VIAL IV PRN (19:34)
[2024-04-19 05:57] LABS: Absolute Basophils 0.1 K/uL (0-0.5); Absolute Eosinophils 0.6 K/uL (0-0.5); Absolute Lymphocytes (CBC) 1.8 K/uL (0.7-4.9); Basophils % 0.7 % (0-1.3); Eosinophils % 6.1 % (0-4.4); Hematocrit 43.3 % (39.6-49.0); Hemoglobin 14.5 g/dL (13.6-17.9); Lymphocytes % 18.9 % (15.3-44.8); MCH 30.3 pg (27.0-35.0); MCHC 33.5 g/dL (32.0-36.0); MCV 90.5 fL (80-100); MPV 9.1 fL (7.6-11.3); Monocytes % 10.2 % (3.3-12.3); Neutrophils % 64.1 % (41.7-73.7); Nucleated Red Blood Cells % 0.1 % (0-0); Platelets 189 thou/uL (152-406); RBC Red Blood Cell Count 4.79 M/uL (4.33-5.43); Red Cell Distribution Width 13.9 % (12.1-15.2)
[2024-04-19 06:10] LABS: Anion Gap 9.4 mEq/L (5.0-15.0); Potassium 3.4 mEq/L (3.5-5.1)
[2024-04-19] MEDS ORDERED: MIDODRINE HCL 5 MG TABLET PO SCH (07:00)
[2024-04-19] MEDS: POTASSIUM 25 MEQ EFFERV TAB PO ONE (07:34)
[2024-04-19] MEDS: POTASSIUM CL SA 10 MEQ TAB PO ONE ×2 (07:55→22:07)
[2024-04-19] MEDS ORDERED: FLU (Fluarix Triv) TS24-25(6MOS UP)/PF 45 MCG/0.5 ML Syringe IM ONE (08:00)
[2024-04-19] MEDS: FUROSEMIDE 40 MG TABLET PO SCH (08:38)
[2024-04-19] MEDS: GALANTAMINE 4 MG TAB PO SCH (08:38)
[2024-04-19] MEDS: METOPROLOL TAR 50 MG TAB PO SCH (08:38)
[2024-04-19] MEDS: levETIRAcetam 500 MG TAB PO SCH (08:39)
[2024-04-19] MEDS: METFORMIN HCL 500 MG TAB PO SCH (08:39)
[2024-04-19] MEDS: DULOXETINE 20 MG CAP PO SCH (08:39)
[2024-04-19] MEDS: ASPIRIN EC 81 MG TAB PO SCH (08:39)
[2024-04-19] MEDS: AMLODIPINE 5 MG TAB PO SCH (08:40)
[2024-04-19] MEDS: MIDODRINE HCL 5 MG TABLET PO SCH (08:40)
[2024-04-19 13:09] VITALS: BMI 34.9
[2024-04-19] MEDS: DOCUSATE NA/SENNA CONC 1 TAB PO SCH (20:41)
[2024-04-19] MEDS: ROSUVASTATIN 10 MG TAB PO SCH (20:42)
--- NOTE | 2024-04-20 00:03 | HP ---
Date of Admission: 04/19/2024 Chief Complaint: Feeling dizzy. History Of Present Illness: This is an 83-year-old pleasant male patient, who [facility] and while he got up and started to walk around, he was feeling dizzy and unsteady on his feet. Th ere was no fall or injury. He was assisted to sit down and ambulance was called and he was brought i [facility] emergency room. IV fluid was given in emergency room and even after IV fluid hydration, he stacey nued to have significant problem with orthostatic hypotension with blood pressure drop in supine posi tion and he was not feeling any better, so at that time, I was contacted requesting admission to the hospital. The patient has history of orthostatic hypotension and was prescribed midodrine 2.5 mg 3 t imes a day and when I asked him today if he was taking it regularly, he told me yes, he was taking it on most days except every now and then he would forget about it. Timing rosado, he did not take it th e way I had suggested on most days. Denies any fever, chills, nausea, vomiting, chest pain, or short ness of breath. No fall or head injury. Physical Examination: Vital Signs: This morning, temperature 97.2, pulse 91, respiratory rate 17, blood pressure 151/79, o xygen saturation 97%. Height 5 feet 8 inches, weight was recorded as 104 pounds, which is obviously wrong as the patient's weight just on visible impression is more than 200 pounds. General: Awake, alert, oriented, not in distress. HEENT: Head atraumatic, normocephalic. Conjunctivae nonerythematous. Sclerae white. Mouth, no thr ush or edema noted. Ears/Nose, no mass, lesion, discharge noted. Neck: Supple. No JVD, lymph nodes, bruit, thyromegaly noted. Lungs: Bilateral good equal air entry. Clear to auscultation. No rhonchi. No rales. Heart: Normal heart sounds, no murmur or gallop. Abdomen: Soft, bowel sounds normal. No guarding, rigidity, tenderness, mass, hepatosplenomegaly, dis tention, or bruit noted. Extremities: No leg edema. No calf tenderness. Skin: No rash, ulcer, cellulitis. Lymphatics: No lymph node enlargement in neck, supraclavicular, infraclavicular region. Neuro: No focal neurological deficit. Chest: Unremarkable. External Genitalia: Deferred. Rectal: Deferred. Laboratory Data: Yesterday, WBC 11.8, hemoglobin 15.7, platelets 195. Today, WBC 9.4, hemoglobin 14 .5, platelets 189. For chemistry yesterday, sodium 134, potassium 3.4, chloride 103, bicarb 24, BUN 25, creatinine 1.42, glucose 171. ProBNP 1400. Today, sodium 138, potassium 3.4, chloride 105, bica rb 27, BUN 20, creatinine 1.14, glucose 149. Chest x-ray, no acute intrathoracic changes. Impression: 1. Volume depletion. 2. Acute kidney injury. 3. Orthostatic hypotension. 4. Coronary artery disease. 5. Hypertension. 6. Hyperlipidemia. 7. Type 2 diabetes mellitus. 8. Hypothyroidism. Plan: We will go ahead and admit the patient to hospital for further evaluation and management of th is problem. IV fluid was given in emergency room and that actually has corrected his volume depletio n and acute kidney injury problem. Now the patient's orthostatic hypotension problem will be managed with midodrine as per order. At home, he was taking 2.5 mg 3 times a day and I will increase dose t o 5 mg 3 times a day, to be taken at 7 a.m., 12 noon, and 5 p.m. For his hypertension, we will stacey nue his antihypertensive medication, hold if systolic blood pressure less than 120. For hyperlipidem ia, continue statin therapy, which is rosuvastatin per order and no need for further intervention on it. For chronic diastolic heart failure, he was started on furosemide [facility] and we will continue that. For coronary artery disease, no need for further intervention at this time. For hypothyroidism, we will continue his levothyroxine and no need for further interv ention. Total time spent was 60 minutes including review of last hospital admission record from April 11, communication with emergency room physician, review of emergency room visit record, and performing today's evaluation and manageme nt. NIKI/MODL Voice ID: [id number]
[2024-04-20 00:22] VITALS: O2SAT 92
[2024-04-20] MEDS: MIDODRINE HCL 5 MG TABLET PO SCH (06:14)
[2024-04-20] MEDS: PANTOPRAZOLE 40MG TABLET PO SCH (06:14)
[2024-04-20] MEDS: LEVOTHYROXINE SOD 0.125 MG TAB PO SCH (06:14)
[2024-04-20 07:59] VITALS: BP 141/73
[2024-04-20 09:10] VITALS: TEMP 97.9
[2024-04-20 09:36] LABS: Anion Gap 10.4 mEq/L (5.0-15.0); Potassium 3.4 mEq/L (3.5-5.1)
--- NOTE | 2024-04-20 12:48 | EKG ---
Test Date: 2024-04-18 Test Time: 11:36:36 [employer] Person: MARYANN MEASUREMENT RESULTS: Intervals: Rate: 82 AK: 186 QRSD: 92 QT: 350 QTc: 408 [place]: P: 27 AK: 186 QRS: 16 T: 105 INTERPRETIVE STATEMENTS: Normal sinus rhythm Possible Left atrial enlargement Inferior infarct, age undetermined Anterolateral infarct, age undetermined Abnormal ECG Compared to ECG 04/12/2024 03:05:51 No significant changes Electronically Signed On 04-20-24 12:43:14 [employer] by Russ Lynn
--- NOTE | 2024-04-20 19:34 | DS ---
Date of Discharge: 04/20/2024 Disposition: Discharged to go home. Physical Examination: HEENT: Unremarkable. Lungs: Clear to auscultation. Heart: Sounds normal. Abdomen: Soft. Bowel sounds normal. No guarding, rigidity, tenderness, distention. Extremities: No leg edema. Discharge Medications And Instructions: 1. Continue all prior home medications except stop midodrine 2.5 mg dose and start midodrine 5 mg 3 t imes a day and I have instructed the patient personally to take this medication at 7 a.m., 12 noon, a nd 5 p.m. 2. Follow up at my office next week. Discharge Diagnoses: 1. Volume depletion. 2. Acute kidney injury. 3. Orthostatic hypotension. 4. Coronary artery disease. 5. Hypertension. 6. Hyperlipidemia. 7. Type 2 diabetes mellitus. 8. Hypothyroidism. Laboratory Data: Upon admission , . Hospital Course: This is an 83-year-old pleasant male patient, who came into emergency room with com plaints of feeling dizzy. Please see dictated H and P for more information. After the patient was e valuated in emergency room, he was given IV fluid hydration for his acute kidney injury and volume de pletion, but he continued to have dizziness with orthostatic hypotension in emergency room, so the se ruano was admitted to hospital. On outpatient basis, the patient was prescribed to take midodrine 2. 5 mg 3 times a day, which he reported to me that he was taking it on most of the days and was taking it as prescribed on most of the days, but when I reviewed office record, I found out that prescriptio n for midodrine was sent about 4 to 5 months ago and it was 3-month supply. After that, the patient never requested refill on this medication, so I am definitely concerned about him not taking this med ication regularly as prescribed and I did explain it to him about importance of taking this medicatio n 3 times a day as prescribed at designated time. He wakes up around 8 to 8:30, so I have instructed him to take the first dose around 7 o'clock in the morning and then wake up and get out of the bed a round 8 to 8:30. He did participate well with physical therapy, ambulated well, and overall his dizz iness problem has improved. Today, we did check his orthostatic vital signs and his blood pressure i n supine position was 138/71, in sitting position 130/69, and standing position 91/51. Total time spent today 35 minutes. NIKI/ALFRED Voice ID: [id number] Report ID: [id number]
== END 2024-04-20 09:32 | disposition home or self-care (01) ==
LOC: ER 11:29 → ERHOLD 17:40 → 2ND 18:01
PROVIDERS: ADMIT Internal Medicine; ATTEND Internal Medicine
DX: E86.9 Volume depletion, unspecified (principal); I95.1 Orthostatic hypotension; N17.9 Acute kidney failure, unspecified; I25.10 Atherosclerotic heart disease of native coronary artery without angina pectoris; I10 Essential (primary) hypertension; E78.5 Hyperlipidemia, unspecified; E11.9 Type 2 diabetes mellitus without complications; E03.9 Hypothyroidism, unspecified
CPT/HCPCS: 93005; 85025 ×2; 80048 ×3; 36415 ×2; 84132; 82947 ×6; 83880; 71045; 97116; 97161; 97530; 96360; 99285; J7040 ×3; G0378

== ENCOUNTER 2024-12-18 12:59 | Emergency (ER) | payer OTHER ==
[2024-12-18] MEDS ORDERED: NA CHLORIDE 0.9% 500 ML ONE (13:32)
[2024-12-18 13:38] LABS: Absolute Lymphocytes (CBC) 2.0 K/uL (0.7-4.9); Hematocrit 38.6 % (39.6-49.0); Hemoglobin 12.5 g/dL (13.6-17.9); MCH 27.2 pg (27.0-35.0); MCHC 32.4 g/dL (32.0-36.0); MCV 83.7 fL (80-100); MPV 9.1 fL (7.6-11.3); Nucleated RBC Absolute Count 0.0 (0-0); Nucleated Red Blood Cells % 0.1 % (0-0); RBC Red Blood Cell Count 4.62 M/uL (4.33-5.43); White Blood Count 7.80 thou/uL (4.3-10.9)
[2024-12-18 13:46] LABS: PT Prothrombin Time 14.8 SECONDS (10-13.0); PTT, Activated Partial Thromb 28.3 SECONDS (27.2-37.4); Protime INR 1.32
--- NOTE | 2024-12-18 13:51 | RAD REPORT ---
EXAMINATION: ONE VIEW CHEST XR CLINICAL INDICATION: Male, 84 years old.,dizziness TECHNIQUE: Frontal chest projection is submitted. Examination is limited by patient positioning and t echnique. COMPARISON: 09/09/2024 FINDINGS: The lungs are well inflated and clear. No pneumothorax or sizable effusion. The heart is normal in s ize. Mediastinal contours are unremarkable. IMPRESSION: No acute intrathoracic abnormalities.
[2024-12-18 13:54] LABS: Anion Gap 10.0 mEq/L (5.0-15.0); BUN Blood Urea Nitrogen 19.0 mg/dL (7-18); Glucose Level 117.0 mg/dL (74-106); Potassium 3.0 mEq/L (3.5-5.1); Troponin High Sensitivity 18.1 pg/mL (<58.9)
[2024-12-18 14:25] LABS: Sqamous Epithelial <5 /HPF (None Seen); Urine Culture Reflex Order NOT NEEDED; Urine Microscopic Reflex YN ORDER UMIC
--- NOTE | 2024-12-18 14:27 | RAD REPORT ---
EXAM: CT Head Brain Wo Cont HISTORY: DIZZINESS COMPARISON: 04/11/2024 TECHNIQUE: Multiple contiguous axial images were obtained for a CT of the brain without contrast. Sag ittal and coronal reformats were performed. One or more of the following dose reduction techniques were used: Automated exposure control, adjus tment of the mA and kV according to patient size, and iterative reconstruction. Unless otherwise specified, incidental findings do not require dedicated imaging follow-up. FINDINGS: No evidence of hydrocephalus, intracranial hemorrhage, or extra-axial fluid collection. Moderate brain atrophy with moderate periventricular and deep white matter chronic microvascular isc hemic changes, stable. The calvarium is intact. The visualized paranasal sinuses and mastoid air cells are essentially clear . IMPRESSION: No evidence of acute intracranial abnormality.
[2024-12-18] MEDS ORDERED: NA CHLORIDE 0.9% 250 ML ONE (15:23)
[2024-12-18] MEDS ORDERED: KCL 20 MEQ/100 mL IVPB 100 ML IV ONE (15:23)
--- NOTE | 2024-12-18 17:35 | ER ---
Nurse's Notes [facility] Name: Franklin Castro Age: 84 yrs Sex: Male : 1940 Arrival Date: 12/18/2024 Time: 12:59 Bed 16 Private MD: Diagnosis: Dizziness and giddiness Presentation: 12/18 13:07 Chief complaint: EMS states: dizzy when standing. Coronavirus screen: Client denies kj2 travel out of the [place] in the last 14 days. Ebola Screen: No symptoms or risks identified at this time. Risk Assessment: Do you want to hurt yourself or someone else? Patient reports no desire to harm self or others. Onset of symptoms was December 18, 2024. 13:07 Method Of Arrival: EMS: [facility] kj2 13:07 Acuity: JIMY 3 kj2 Triage Assessment: 13:10 General: Appears in no apparent distress. Behavior is calm, cooperative. Pain: Denies kj2 pain. EENT: No signs and/or symptoms were reported regarding the EENT system. Neuro: Level of Consciousness is awake, Oriented to person, place, time, situation. Cardiovascular: Patient's skin is warm and dry. Respiratory: Airway is patent Respiratory effort is unlabored. GI: GI: No signs and/or symptoms were reported involving the gastrointestinal system. : : No signs and/or symptoms were reported regarding the genitourinary system. 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 - Infectious Disease History:: Denies. - Social history:: Smoking status: unknown. - Family history:: not pertinent. - Hospitalizations: : No recent hospitalization is reported. Screenin:12 [facility] ED Fall Risk Assessment (Adult) History of falling in the last 3 months, kj2 including since admission No falls in past 3 months (0 pts) Confusion or Disorientation No (0 pts) Intoxicated or Sedated No (0 pts) Impaired Gait Yes (1 pt) Mobility Assist Device Used Yes (1 pt) Altered Elimination No (0 pt) Score/Fall Risk Level 0 - 2 = Low Risk Maintained a safe environment, Hourly rounding (assess needs \T\ fall precautionary measures) done. Abuse screen: Denies threats or abuse. Denies injuries from another. Nutritional screening: No deficits noted. Tuberculosis screening: No symptoms or risk factors identified. Assessment: 13:12 General: see triage assessment. kj2 15:57 Reassessment: Patient appears in no apparent distress at this time. Patient is alert, bp oriented x 3, equal unlabored respirations, skin warm/dry/pink. 16:58 Reassessment: Patient appears in no apparent distress at this time. Patient is alert, bp oriented x 3, equal unlabored respirations, skin warm/dry/pink. 18:17 Reassessment: Patient appears in no apparent distress at this time. Patient is alert, bp oriented x 3, equal unlabored respirations, skin warm/dry/pink. Patient states symptoms have improved. Vital Signs: 13:07 BP 135 / 95; Pulse 71; Resp 20; Temp 98.4; kj2 13:14 Pulse Ox 98% on 2 lpm NC; kj2 15:56 BP 111 / 74; Pulse 64; Resp 16; Pulse Ox 98% ; bp 16:58 BP 120 / 66; Pulse 73; Resp 16; Pulse Ox 97% ; bp ED Course: 12:59 Patient arrived in ED. ll1 12:59 Joselo Tello MD is Attending Physician. rn 13:09 Triage completed. kj2 13:13 Patient has correct armband on for positive identification. Bed in low position. Call kj2 light in reach. Provided Education on: call light. 13:15 Cody Sanchez, RN is Primary Nurse. bp 13:27 Initial lab(s) drawn, by sc, sent to lab. Inserted saline lock: 22 gauge in left hand, bp using aseptic technique. Blood collected. Flushed with 10 mL NS. 13:29 Chest Single View XRAY In Process Unspecified. EDMS 14:06 CT Head Brain wo Cont In Process Unspecified. EDMS 18:17 No provider procedures requiring assistance completed. IV discontinued, intact, bp bleeding controlled, No redness/swelling at site. Pressure dressing applied. Administered Medications: 13:36 Drug: NS 0.9% IV 500 ml 500 ml IV at 1 bolus once; to be given as a bolus over 30 bp minutes Volume: 500 ml; Route: IV; Rate: 1 bolus; Site: left hand; 18:16 Follow up: IV Status: Completed infusion bp 15:15 Drug: Potassium Chloride IV 10 mEq IV at calculated rate once; administer over 1-2 bp hours Route: IV; Rate: calculated rate; Site: left hand; Outcome: 17:34 Discharge ordered by . rn 18:17 Discharged to home ambulatory, bp 18:17 Condition: stable 18:17 Discharge instructions given to patient, Instructed on discharge instructions, follow up and referral plans. Demonstrated understanding of instructions, follow-up care, 18:17 Patient left the ED. bp Signatures: Dispatcher [employer] EDMS Joselo Tello MD MD rn Peltier, Brian RN RN Chuck Pardo RN RN ll1 Maeve Chang RN RN kj2
--- NOTE | 2024-12-18 17:35 | EDPHYS ---
Physician Documentation [facility] Name: Franklin Castro Age: 84 yrs Sex: Male : 1940 Arrival Date: 12/18/2024 Time: 12:59 Bed 16 Private MD: ED Physician Joselo Tello HPI: 12/18 13:32 This 84 yrs old Male presents to ER via EMS with complaints of Dizziness. rn 13:32 Patient reports dizziness, worse when he stands up. Has had this problem in the past rn but in the past has led to multiple falls. No syncope or fall this time. Call 911. EMS reports orthostatic positive with 50 point change in systolic blood pressure when standing. Denies any chest pain or shortness of breath. No abdominal pain. No vomiting. Reports not drinking as much water as his PCP told him to. No blood in stool.. 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 - Infectious Disease History:: Denies. - Social history:: Smoking status: unknown. - Family history:: not pertinent. - Hospitalizations: : No recent hospitalization is reported. ROS: 13:32 Constitutional: Negative for fever, chills, and weight loss, Neck: Negative for injury, rn pain, and swelling, Cardiovascular: Negative for chest pain, palpitations, and edema, Respiratory: Negative for shortness of breath, cough, wheezing, and pleuritic chest pain, Abdomen/GI: Negative for abdominal pain, nausea, vomiting, diarrhea, and constipation, MS/Extremity: Negative for injury and deformity, Skin: Negative for injury, rash, and discoloration, Neuro: Negative for headache, weakness, numbness, tingling, and seizure, Exam: 13:32 Constitutional: This is a well developed, well nourished patient who is awake, alert, rn and in no acute distress. ENT: Dry mucous membranes Cardiovascular: Regular rate and rhythm. No pulse deficits. Respiratory: No increased work of breathing, no retractions or nasal flaring. Abdomen/GI: Soft, non-tender MS/ Extremity: Pulses equal, no cyanosis. Neurovascular intact. Full, normal range of motion. Equal circumference. Neuro: Awake and alert, GCS 15, oriented to person, place, time, and situation. Cranial nerves II-XII grossly intact. Motor strength 4/5 in all extremities. Sensory grossly intact. 15:44 ECG was reviewed by the Attending Physician. rn Vital Signs: 13:07 BP 135 / 95; Pulse 71; Resp 20; Temp 98.4; kj2 13:14 Pulse Ox 98% on 2 lpm NC; kj2 15:56 BP 111 / 74; Pulse 64; Resp 16; Pulse Ox 98% ; bp 16:58 BP 120 / 66; Pulse 73; Resp 16; Pulse Ox 97% ; bp MDM: 12:59 Medical Screening Exam initiated rn 15:07 ED course: Patient feeling much better, denies current dizziness. Still no chest pain rn or other acute complaints. Family member has brought Chick[employer]daniel[employer] and he is enjoying lunch and feels much better. Will reevaluate after he eats. 15:44 Management of patient was discussed with the following: [employer]: Discussed case with rn Dr. 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 17:32 Differential diagnosis: cardiac arrhythmia, generalized weakness, hypovolemia, rn idiopathic dizziness, near-syncope. Data reviewed: vital signs, nurses notes, lab test result(s), EKG, radiologic studies, plain films, and as a result, I will discharge patient. Consideration of Admission/Observation Escalation of care including admission/observation considered. Escalation considered but after hydration and eating patient feels much better, symptoms have resolved and repeat troponin is negative. No acute findings and chest x-ray imaging or CT head.. 17:33 Independent interpretation of the following test(s) in the Emergency Department X-Ray: rn My interpretation is Chest x-ray images negative for pneumonia or pneumothorax per my interpretation. CT Scan: My interpretation is CT head images negative for acute hemorrhage per my interpretation. telemetry monitor: rate is 73 beats/min, Rhythm is normal sinus rhythm, regular, with no ectopy, Interpretation: normal rate, normal rhythm. Care significantly affected by the following chronic conditions: Diabetes, Hypertension. Counseling: I had a detailed discussion with the patient and/or guardian regarding the historical points, exam findings, and any diagnostic results supporting the discharge/admit diagnosis, lab results, radiology results, the need for outpatient follow up, to return to the emergency department if symptoms worsen or persist or if there are any questions or concerns that arise at home. Special discussion: I discussed with the patient/guardian in detail that at this point there is no indication for admission to the hospital. It is understood, however, that if the symptoms persist or worsen the patient needs to return immediately for re-evaluation. Based on the history and exam findings, there is no indication for further emergent testing or inpatient evaluation. I discussed with the patient/guardian the need to see the primary care provider for further evaluation of the symptoms. 17:33 ED course: Patient continues to feel better, reports feels much better after eating. rn Patient ambulated in the emergency room and denies any dizziness. Will discharge home as workup otherwise negative for acute findings.. 12/18 13:05 Order name: Basic Metabolic Panel; Complete Time: 14: 12/18 13:05 Order name: CBC with Diff; Complete Time: : 12/18 13:05 Order name: Protime (+inr); Complete Time: : rn 12/18 13:05 Order name: Ptt, Activated; Complete Time: : rn 12/18 13:05 Order name: Troponin High Sensitivity; Complete Time: : rn 12/18 13:09 Order name: UA Rfx Randall Cult if indicated; Complete Time: 14: rn 12/18 15:40 Order name: Troponin High Sensitivity; Complete Time: 16:40 rn 12/18 13:05 Order name: CT Head Brain wo Cont; Complete Time: 14:34 rn 12/18 13:05 Order name: Chest Single View XRAY; Complete Time: 14: rn 12/18 13:05 Order name: Cardiac monitoring; Complete Time: : rn 12/18 13:05 Order name: EKG - Nurse/Tech; Complete Time: 14: rn 12/18 13:05 Order name: IV Saline Lock; Complete Time: : rn 12/18 13:05 Order name: Labs collected and sent; Complete Time: 13: rn 12/18 13:05 Order name: NPO; Complete Time: : rn 12/18 13:05 Order name: O2 Per Protocol; Complete Time: : rn 12/18 13:05 Order name: O2 Sat Monitoring; Complete Time: 13:27 rn EC:44 Rate is 67 beats/min. Rhythm is regular. QRS Snyder is Normal. ID interval is prolonged. rn QRS interval is normal. QT interval is normal. T waves are Normal. No ST changes noted. Clinical impression: NSR w/ Non-specific ST/T Changes. Interpreted by me. Reviewed by me. Administered Medications: 13:36 Drug: NS 0.9% IV 500 ml 500 ml IV at 1 bolus once; to be given as a bolus over 30 bp minutes Volume: 500 ml; Route: IV; Rate: 1 bolus; Site: left hand; 18:16 Follow up: IV Status: Completed infusion bp 15:15 Drug: Potassium Chloride IV 10 mEq IV at calculated rate once; administer over 1-2 bp hours Route: IV; Rate: calculated rate; Site: left hand; Disposition Summary: 12/18/24 17:34 Discharge Ordered Notes: Location: Home rn Problem: new rn Symptoms: have improved rn Condition: Stable rn Diagnosis - Dizziness and giddiness rn Followup: rn - With: Private Physician - When: As needed - Reason: Recheck today's complaints, Re-evaluation by your physician Discharge Instructions: - Discharge Summary Sheet rn - Dizziness rn - Orthostatic Hypotension rn Forms: - Medication Reconciliation Form rn - Antibiotic culinary intern - Prescription Opioid Use rn - Patient Portal Instructions rn - Leadership Thank You Letter rn Signatures: Dispatcher [employer] EDMS Joselo Tello MD MD rn Peltier, Brian, RN Maeve Garibay RN RN kj2 Corrections: (The following items were deleted from the chart) 13:05 13:05 BASIC METABOLIC PANEL+C.LAB.BRZ ordered. EDMS EDMS 13:05 13:05 CBC+H.LAB.BRZ ordered. EDMS EDMS 13:05 13:05 PROTIME (+INR)+COAG.LAB.BRZ ordered. EDMS EDMS 13:05 13:05 PTT, ACTIVATED+COAG.LAB.BRZ ordered. EDMS EDMS 13:05 13:05 Troponin High Sensitivity+C.LAB.BRZ ordered. EDMS EDMS 13:05 13:05 Head Brain Wo Cont+CT.RAD.BRZ ordered. EDMS EDMS 13:05 13:05 Chest Single View+RAD.RAD.BRZ ordered. EDMS EDMS 13:09 13:09 UA Rfx Randall Cult if indicated+U.LAB.BRZ ordered. EDMS EDMS 15:41 15:41 Troponin High Sensitivity+C.LAB.BRZ ordered. EDMS EDMS
[2024-12-18 18:42] VITALS: TEMP 98.4
[2024-12-18 18:45] VITALS: BP 120/66; O2SAT 97
== END 2024-12-18 18:17 | disposition home or self-care (01) ==
LOC: ER 12:59
DX: R42 Dizziness and giddiness (principal); I10 Essential (primary) hypertension
CPT/HCPCS: 96361; 93005; 85025; 81001; 80048; 36415; 85610; 85730; 84484 ×2; 70450; 71045; 96374; 99284; J3480; J7050; J7040

== ENCOUNTER 2024-12-22 08:58 | Observation (INO) | payer OTHER ==
[2024-12-22] MEDS ORDERED: MORPHINE 4 MG/ML SYR ONE (09:15)
[2024-12-22] MEDS ORDERED: ONDANSETRON 4 MG/2 ML VIAL ONE (09:15)
[2024-12-22] MEDS ORDERED: ASPIRIN 81 MG CHEWABLE TABLET ONE (09:15)
[2024-12-22] MEDS ORDERED: FAMOTIDINE 20 MG/2 ML VIAL IV ONE (09:15)
[2024-12-22] MEDS ORDERED: NA CHLORIDE 0.9% 500 ML ONE (09:16)
[2024-12-22 09:24] LABS: Absolute Lymphocytes (CBC) 1.8 K/uL (0.7-4.9); Hematocrit 39.8 % (39.6-49.0); Hemoglobin 13.1 g/dL (13.6-17.9); MCH 27.5 pg (27.0-35.0); MCHC 32.9 g/dL (32.0-36.0); MCV 83.6 fL (80-100); MPV 9.4 fL (7.6-11.3); Nucleated RBC Absolute Count 0.0 (0-0); Nucleated Red Blood Cells % 0.0 % (0-0); RBC Red Blood Cell Count 4.76 M/uL (4.33-5.43); White Blood Count 8.10 thou/uL (4.3-10.9)
[2024-12-22 09:32] LABS: PT Prothrombin Time 13.8 SECONDS (10-13.0); Protime INR 1.23
--- NOTE | 2024-12-22 09:41 | RAD REPORT ---
Procedure: Chest Single View HISTORY: Chest pain COMPARISON: December 18, 2024 FINDINGS: The lungs appear clear of acute infiltrate. No significant pleural effusion noted. The heart is mildly to moderately enlarged. Post surgical changes involve the chest. IMPRESSION: No acute abnormality is displayed.
[2024-12-22 09:47] LABS: ALT/SGPT 26.0 U/L (16-61); AST/SGOT 18.0 U/L (15-37); Albumin 3.1 g/dL (3.4-5.0); Albumin/Globulin Ratio 0.6 (1.1-1.8); Alkaline Phosphatase 103.0 U/L (45-117); Anion Gap 11.2 mEq/L (5.0-15.0); BUN Blood Urea Nitrogen 17.0 mg/dL (7-18); Bilirubin Indirect, Calculated 0.3 mg/dL (0.2-0.8); Globulin 4.8 g/dL (2.3-3.5); Glucose Level 124.0 mg/dL (74-106); Lipase 44.0 U/L (13-75); Magnesium 1.6 mg/dL (1.6-2.4); NT PRO-BNP 3896.0 pg/mL (<450); Potassium 3.2 mEq/L (3.5-5.1); Troponin High Sensitivity 16.9 pg/mL (<58.9)
[2024-12-22 09:50] LABS: Sqamous Epithelial <5 /HPF (None Seen); Urine Culture Reflex Order NOT NEEDED; Urine Microscopic Reflex YN ORDER UMIC; Urine WBC Clump Rare /HPF (None Seen); Urine Yeast (Budding) Trace /HPF (None Seen)
--- NOTE | 2024-12-22 12:37 | EDPHYS ---
Physician Documentation [facility] Name: Franklin Castro Age: 84 yrs Sex: Male : 1940 Arrival Date: 12/22/2024 Time: 08:58 Bed 19 Private MD: ED Physician Gonzales Brian HPI: 12/22 12:29 This 84 yrs old Male presents to ER via EMS with complaints of cp, weakness. sylvia 12:29 The patient or guardian reports chest pain that is located primarily in the substernal sylvia area, anterior chest wall, bilaterally. Onset: just prior to arrival, this morning. Historical: - Allergies: 09:02 Unknown antihypertensive medication; ll1 - PMHx: 09:02 Dementia; Diabetes - NIDDM; Hypertension; Hypothyroidism; Subdural frontal bleed; ll1 throat cancer; - PSHx: 09:02 heart surgery; knee replacement; Tonsillectomy; ll1 - Immunization history:: Adult Immunizations up to date. - Infectious Disease History:: Denies. - Social history:: Smoking status: unknown. ROS: 12:32 Constitutional: Negative for fever, chills, and weight loss, Eyes: Negative for injury, sylvia pain, redness, and discharge, ENT: Negative for injury, pain, and discharge, Neck: Negative for injury, pain, and swelling, Respiratory: Negative for shortness of breath, cough, wheezing, and pleuritic chest pain, Abdomen/GI: Negative for abdominal pain, nausea, vomiting, diarrhea, and constipation, Back: Negative for injury and pain, : Negative for injury, bleeding, discharge, and swelling, MS/Extremity: Negative for injury and deformity, Skin: Negative for injury, rash, and discoloration, Neuro: Negative for headache, weakness, numbness, tingling, and seizure, Psych: Negative for depression, anxiety, suicide ideation, homicidal ideation, and hallucinations, Allergy/Immunology: Negative for hives, rash, and allergies, Endocrine: Negative for neck swelling, polydipsia, polyuria, polyphagia, and marked weight changes, Hematologic/Lymphatic: Negative for swollen nodes, abnormal bleeding, and unusual bruising, 12:32 Cardiovascular: Positive for chest pain, Exam: 12:32 Constitutional: This is a well developed, well nourished patient who is awake, alert, sylvia and in no acute distress. Head/Face: Normocephalic, atraumatic. Eyes: Pupils equal round and reactive to light, extra-ocular motions intact. Lids and lashes normal. Conjunctiva and sclera are non-icteric and not injected. Cornea within normal limits. Periorbital areas with no swelling, redness, or edema. ENT: Nares patent. No nasal discharge, no septal abnormalities noted. Tympanic membranes are normal and external auditory canals are clear. Oropharynx with no redness, swelling, or masses, exudates, or evidence of obstruction, uvula midline. Mucous membranes moist. Neck: Trachea midline, no thyromegaly or masses palpated, and no cervical lymphadenopathy. Supple, full range of motion without nuchal rigidity, or vertebral point tenderness. No Meningismus. Chest/axilla: Normal chest wall appearance and motion. Nontender with no deformity. No lesions are appreciated. Cardiovascular: Regular rate and rhythm with a normal S1 and S2. No gallops, murmurs, or rubs. Normal PMI, no JVD. No pulse deficits. Respiratory: Lungs have equal breath sounds bilaterally, clear to auscultation and percussion. No rales, rhonchi or wheezes noted. No increased work of breathing, no retractions or nasal flaring. Abdomen/GI: Soft, non-tender, with normal bowel sounds. No distension or tympany. No guarding or rebound. No evidence of tenderness throughout. Back: No spinal tenderness. No costovertebral tenderness. Full range of motion. Male : Normal genitalia with no discharge or lesions. Skin: Warm, dry with normal turgor. Normal color with no rashes, no lesions, and no evidence of cellulitis. MS/ Extremity: Pulses equal, no cyanosis. Neurovascular intact. Full, normal range of motion., bilateral aka Neuro: Awake and alert, GCS 15, oriented to person, place, time, and situation. Cranial nerves II-XII grossly intact. Motor strength 5/5 in all extremities. Sensory grossly intact. Cerebellar exam normal. Normal gait. Psych: Awake, alert, with orientation to person, place and time. Behavior, mood, and affect are within normal limits. 12:32 ECG was reviewed by the Attending Physician. Vital Signs: 09:01 BP 170 / 95; Pulse 61; Resp 16; Temp 98; Pulse Ox 96% ; Weight 99.79 kg; Height 5 ft. 8 ll1 in. ; Pain 2/10; 12:30 BP 135 / 77; Pulse 57; Resp 18; Pulse Ox 96% ; Pain 0/10; rg5 13:24 BP 133 / 89; Pulse 63; Resp 18; Pulse Ox 97% ; Pain 0/10; rg5 14:35 BP 139 / 80; Pulse 62; Resp 18; Pulse Ox 97% ; rg5 16:30 BP 131 / 85; Pulse 60; Pulse Ox 98% ; rg5 09:01 Body Mass Index 33.45 (99.79 kg, 172.72 cm) ll1 09:01 Pain Scale: Adult ll1 12:30 Pain Scale: Adult rg5 13:24 Pain Scale: Adult rg5 MDM: 09:03 Medical Screening Exam initiated sylvia 12:34 Differential diagnosis: abnormal EKG, acute myocardial infarction, acute pericarditis, sylvia anxiety, coronary artery disease chest wall pain, cholecystitis, Cholelithiasis costochondritis, esophagitis, gastritis, herpes zoster, pancreatitis, peptic ulcer disease, pericarditis, pleurisy, pulmonary embolus, stable angina, thoracic aortic disection, unstable angina. HEART Score: History: Moderately Suspicious (1), ECG: Non specific repolarization disturbance / LBTB / PM (1), Age: > or = 65 years (2), Risk Factors: > or = 3 Risk factors for atherosclerotic disease (2), [Hypercholesterolemia] [Hypertension] [DM] [+ Family HX] [Obesity]. The patient was given aspirin in the Emergency Department. EVONNE Risk Score: 1 - patient's age is greater or equal to 65 years, 1 - Three or more CAD risk factors, 1- Known CAD, 1 - ASA use in past 7 days, 1 - Recent [<24hrs] Severe Angina, TOTAL SCORE = 5. Data reviewed: vital signs, nurses notes, lab test result(s), EKG, radiologic studies, plain films. Consideration of Admission/Observation Escalation of care including admission/observation considered. I considered the following discharge prescriptions or medication management in the emergency department Medications were administered in the Emergency Department. See MAR. Independent interpretation of the following test(s) in the Emergency Department EKG: See my EKG interpretation above. Test considered but Not performed: Ultrasound no 2 d echo. 12/22 09:04 Order name: Basic Metabolic Panel; Complete Time: [facility] 12/22 09:04 Order name: CBC with Diff; Complete Time: [facility] 12/22 09:04 Order name: LFT's; Complete Time: [facility] 12/22 09:04 Order name: Magnesium; Complete Time: [facility] 12/22 09:04 Order name: NT PRO-BNP; Complete Time: [facility] 12/22 09:04 Order name: PT-INR; Complete Time: [facility] 12/22 09:04 Order name: Troponin HS; Complete Time: [facility] 12/22 09:04 Order name: Lipase; Complete Time: [facility] 12/22 09:04 Order name: UA Rfx Randall Cult if indicated; Complete Time: [facility] 12/22 09:04 Order name: XRAY Chest (1 view); Complete Time: [facility] 12/22 12:42 Order name: CONS Physician Consult EDID 12/22 09:04 Order name: Cardiac monitoring; Complete Time: : [facility] 12/22 09:04 Order name: EKG - Nurse/Tech; Complete Time: : [facility] 12/22 09:04 Order name: IV Saline Lock; Complete Time: : [facility] 12/22 09:04 Order name: Labs collected and sent; Complete Time: : [facility] 12/22 09:04 Order name: O2 Per Protocol; Complete Time: : [facility] 12/22 09:04 Order name: O2 Sat Monitoring; Complete Time: 09: [facility] EC:32 Rate is 66 beats/min. Rhythm is regular. QRS [place] is Normal. NC interval is normal. QRS sylvia interval is normal. QT interval is normal. No Q waves. T waves are Normal. No ST changes noted. Clinical impression: Abnormal EKG without significant change and No evidence of ischemia. Interpreted by me. Reviewed by me. Administered Medications: :42 Drug: NS 0.9% IV 500 ml 500 ml IV at 1 bolus once; to be given as a bolus over 30 ll1 minutes Volume: 500 ml; Route: IV; Rate: 1 bolus; Site: left forearm; 12:00 Follow up: IV Status: Completed infusion; IV Intake: 500ml rg5 14:00 Follow up: IV Status: Completed infusion; IV Intake: 500ml rg5 09:42 Drug: Famotidine IVP 20 mg IVP once; dilute with 10 mL 0.9% NaCl; give over 2 minutes ll1 Route: IVP; Site: left forearm; 14:00 Follow up: Response: No adverse reaction rg5 09:42 Drug: Aspirin PO Chewable Tablet 162 mg PO once Route: PO; ll1 12:00 Follow up: Response: No adverse reaction rg5 12:05 Not Given (Patient Refused): morphineor iv 2 mg IVP once over 4 mins dd2 12:05 Not Given (Patient Refused): ondansetron 4 mg IVP once; over 2 minutes dd2 13:23 Drug: Potassium PO Effervescent Tablet 25 mEq PO once; dissolve in 4 ounces of water or rg5 juice Route: PO; 14:00 Follow up: Response: No adverse reaction rg5 13:23 Drug: Magnesium Sulfate IVPB 1 grams IVPB once over 1 hrs Route: IVPB; Infused Over: 1 rg5 hrs; Site: left forearm; 14:00 Follow up: IV Status: Completed infusion; IV Intake: 100ml rg5 13:23 Drug: Enoxaparin Sub-Q 1 mg/kg Sub-Q once Route: Sub-Q; Site: right lower abdomen; rg5 14:00 Follow up: Response: No adverse reaction rg5 13:24 Not Given (Patient Refused): morphineor iv 2 mg IVP once over 4 mins rg5 Disposition Summary: 12/22/24 12:36 Hospitalization Ordered Notes: Hospitalization Status: Observation sylvia Provider: Zuly Jones cha Condition: Stable sylvia Problem: new sylvia Symptoms: have improved sylvia Bed/Room Type: Standard sylvia Location: Telemetry/MedSurg (observation)(12/22/24 15:19) Room Assignment: 206(12/22/24 15:19) bd Diagnosis - Chest pain, unspecified sylvia - Hypokalemia sylvia Forms: - Medication Reconciliation Form sylvia - SBAR form sylvia - Leadership Thank You Letter sylvia Signatures: Dispatcher [employer] Citlaly Melagr Corey, MD MD cha Lewis, Lynsay RN RN ll1 Charlie Colye RN RN rg5 MILLIE MONTES RN dd2 Corrections: (The following items were deleted from the chart) 09:05 09:05 BASIC METABOLIC PANEL+C.LAB.BRZ ordered. EDMS EDMS 09:05 09:05 CBC+H.LAB.BRZ ordered. EDMS EDMS 09:05 09:05 HEPATIC FUNCTION+C.LAB.BRZ ordered. EDMS EDMS 09:05 09:05 MAGNESIUM+C.LAB.BRZ ordered. EDMS EDMS 09:05 09:05 PROBNP+C.LAB.BRZ ordered. EDMS EDMS 09:05 09:05 PROTIME (+INR)+COAG.LAB.BRZ ordered. EDMS EDMS 09:05 09:05 Troponin High Sensitivity+C.LAB.BRZ ordered. EDMS EDMS 09:05 09:05 LIPASE+C.LAB.BRZ ordered. EDMS EDMS 09:05 09:05 UA Rfx Randall Cult if indicated+U.LAB.BRZ ordered. EDMS EDMS 09:05 09:05 Chest Single View+RAD.RAD.BRZ ordered. EDMS EDMS 14:25 12:36 Telemetry/MedSurg (observation) sylvia bd 14:25 12:36 sylvia bd 15:19 14:25 [facility] ER HOLD bd bd 15:19 14:25 ERHOLD- bd bd
--- NOTE | 2024-12-22 12:37 | ER ---
Nurse's Notes [facility] [place] [place] [facility] Name: Franklin Castro Age: 84 yrs Sex: Male : 1940 Arrival Date: 12/22/2024 Time: 08:58 Bed 19 Private MD: Diagnosis: Chest pain, unspecified;Hypokalemia Presentation: 12/22 09:01 Chief complaint: Patient states: CP for 3 hours. Coronavirus screen: Client denies ll1 travel out of the [place] in the last 14 days. At this time, the client does not indicate any symptoms associated with coronavirus-19. Ebola Screen: Patient denies travel to an Ebola-affected area in the 21 days before illness onset. Initial Sepsis Screen: Does the patient meet any 2 criteria? No. Patient's initial sepsis screen is negative. Does the patient have a suspected source of infection? No. Patient's initial sepsis screen is negative. Risk Assessment: Do you want to hurt yourself or someone else? Patient reports no desire to harm self or others. Onset of symptoms was December 22, 2024. 09:01 Method Of Arrival: EMS ll1 09:01 Acuity: JIYM 3 ll1 Historical: - Allergies: 09:02 Unknown antihypertensive medication; ll1 - PMHx: 09:02 Dementia; Diabetes - NIDDM; Hypertension; Hypothyroidism; Subdural frontal bleed; ll1 throat cancer; - PSHx: 09:02 heart surgery; knee replacement; Tonsillectomy; ll1 - Immunization history:: Adult Immunizations up to date. - Infectious Disease History:: Denies. - Social history:: Smoking status: unknown. Screenin:00 [facility] ED Fall Risk Assessment (Adult) History of falling in the last 3 months, rg5 including since admission No falls in past 3 months (0 pts) Confusion or Disorientation No (0 pts) Intoxicated or Sedated No (0 pts) Impaired Gait Yes (1 pt) Mobility Assist Device Used Yes (1 pt) Altered Elimination No (0 pt) Score/Fall Risk Level 0 - 2 = Low Risk Oriented to surroundings, Maintained a safe environment. Abuse screen: Denies threats or abuse. Nutritional screening: No deficits noted. Tuberculosis screening: No symptoms or risk factors identified. Assessment: 12:00 General: Appears in no apparent distress. comfortable, Behavior is calm, cooperative, rg5 appropriate for age. 12:00 Pain: Complains of pain in chest. Neuro: Level of Consciousness is awake, alert, obeys rg5 commands, Oriented to person, place, time, situation. Cardiovascular: Reports chest pain, Patient's skin is warm and dry. Rhythm is sinus rhythm. Respiratory: Airway is patent Trachea midline Breath sounds are clear. GI: Abdomen is round non-distended. : No signs and/or symptoms were reported regarding the genitourinary system. EENT: No signs and/or symptoms were reported regarding the EENT system. Derm: Skin is intact, Skin is normal. Musculoskeletal: Circulation, motion, and sensation intact. Range of motion: intact in all extremities. 13:33 Reassessment: Patient and/or family updated on plan of care and expected duration. Pain rg5 level reassessed. Patient is alert, oriented x 3, equal unlabored respirations, skin warm/dry/pink. Patient states symptoms have improved. 14:00 Reassessment: Patient and/or family updated on plan of care and expected duration. Pain rg5 level reassessed. Patient is alert, oriented x 3, equal unlabored respirations, skin warm/dry/pink. 15:00 Reassessment: Patient and/or family updated on plan of care and expected duration. Pain rg5 level reassessed. Patient is alert, oriented x 3, equal unlabored respirations, skin warm/dry/pink. 16:00 Reassessment: Patient and/or family updated on plan of care and expected duration. Pain rg5 level reassessed. Patient is alert, oriented x 3, equal unlabored respirations, skin warm/dry/pink. 17:00 Reassessment: No changes from previously documented assessment. Patient and/or family rg5 updated on plan of care and expected duration. Pain level reassessed. Patient is alert, oriented x 3, equal unlabored respirations, skin warm/dry/pink. Vital Signs: 09:01 BP 170 / 95; Pulse 61; Resp 16; Temp 98; Pulse Ox 96% ; Weight 99.79 kg; Height 5 ft. 8 ll1 in. ; Pain 2/10; 12:30 BP 135 / 77; Pulse 57; Resp 18; Pulse Ox 96% ; Pain 0/10; rg5 13:24 BP 133 / 89; Pulse 63; Resp 18; Pulse Ox 97% ; Pain 0/10; rg5 14:35 BP 139 / 80; Pulse 62; Resp 18; Pulse Ox 97% ; rg5 16:30 BP 131 / 85; Pulse 60; Pulse Ox 98% ; rg5 09:01 Body Mass Index 33.45 (99.79 kg, 172.72 cm) ll1 09:01 Pain Scale: Adult ll1 12:30 Pain Scale: Adult rg5 13:24 Pain Scale: Adult rg5 ED Course: 09:00 Patient arrived in ED. bp 09:02 Triage completed. ll1 09:03 Gonzales Brian MD is Attending Physician. sylvia 09:11 Chuck Perez, MORRIS is Primary Nurse. ll1 09:19 Lipase Sent. ty 09:19 Basic Metabolic Panel Sent. ty 09:19 CBC with Diff Sent. ty 09:19 LFT's Sent. ty 09:19 Magnesium Sent. ty 09:19 NT PRO-BNP Sent. ty 09:19 PT-INR Sent. ty 09:19 Troponin HS Sent. ty 09:19 Inserted saline lock: 22 gauge in left forearm, using aseptic technique. Blood ty collected. Flushed with 10 mL NS. 09:25 XRAY Chest (1 view) In Process Unspecified. EDMS 12:00 Patient has correct armband on for positive identification. Bed in low position. Call rg5 light in reach. Side rails up X 1. Door closed. Noise minimized. Warm blanket given. 12:36 Zuly Jones MD is Hospitalizing Provider. sylvia 13:33 No provider procedures requiring assistance completed. Patient admitted, IV remains in rg5 place. intact, No redness/swelling at site. Administered Medications: :42 Drug: NS 0.9% IV 500 ml 500 ml IV at 1 bolus once; to be given as a bolus over 30 ll1 minutes Volume: 500 ml; Route: IV; Rate: 1 bolus; Site: left forearm; 12:00 Follow up: IV Status: Completed infusion; IV Intake: 500ml rg5 14:00 Follow up: IV Status: Completed infusion; IV Intake: 500ml 5 09:42 Drug: Famotidine IVP 20 mg IVP once; dilute with 10 mL 0.9% NaCl; give over 2 minutes ll1 Route: IVP; Site: left forearm; 14:00 Follow up: Response: No adverse reaction rg5 09:42 Drug: Aspirin PO Chewable Tablet 162 mg PO once Route: PO; ll1 12:00 Follow up: Response: No adverse reaction rg5 12:05 Not Given (Patient Refused): morphineor iv 2 mg IVP once over 4 mins dd2 12:05 Not Given (Patient Refused): ondansetron 4 mg IVP once; over 2 minutes dd2 13:23 Drug: Potassium PO Effervescent Tablet 25 mEq PO once; dissolve in 4 ounces of water or rg5 juice Route: PO; 14:00 Follow up: Response: No adverse reaction rg5 13:23 Drug: Magnesium Sulfate IVPB 1 grams IVPB once over 1 hrs Route: IVPB; Infused Over: 1 rg5 hrs; Site: left forearm; 14:00 Follow up: IV Status: Completed infusion; IV Intake: 100ml rg5 13:23 Drug: Enoxaparin Sub-Q 1 mg/kg Sub-Q once Route: Sub-Q; Site: right lower abdomen; rg5 14:00 Follow up: Response: No adverse reaction rg5 13:24 Not Given (Patient Refused): morphineor iv 2 mg IVP once over 4 mins rg5 Medication: 12:00 VIS not applicable for this client. rg5 Intake: 12:00 IV: 500ml; Total: 500ml. rg5 14:00 IV: 100ml; Total: 600ml. rg5 14:00 IV: 500ml; Total: 1100ml. rg5 Outcome: 12:36 Decision to Hospitalize by Provider. sylvia 13:33 Admitted to ER Hold. Please see [facility] for further documentation. rg5 13:33 Condition: stable 13:33 Instructed on the need for admit, 18:02 Patient left the ED. rg5 Signatures: Dispatcher [employer] EDGonzales Hernandez MD MD cha Peltier, Brian RN RN Chuck Pardo RN RN ll1 Al Hoffmann Rommel, RN RN rg5 MILLIE MONTES RN dd2
[2024-12-22] MEDS ORDERED: MAGNESIUM SULFATE 1 gm IVPB 1 GM/100 ML BAG IV ONE (13:10)
[2024-12-22] MEDS ORDERED: POTASSIUM 25 MEQ EFFERV TAB ONE (13:10)
[2024-12-22] MEDS ORDERED: ENOXAPARIN 100 MG/ML SYR SQ ONE (13:11)
[2024-12-22] MEDS ORDERED: MORPHINE 4 MG/ML SYR IV PRN (18:21)
[2024-12-22] MEDS ORDERED: ONDANSETRON 4 MG/2 ML VIAL IV PRN (18:21)
[2024-12-22] MEDS ORDERED: ACETAMINOPHEN 325 MG TABLET PO PRN (18:33)
[2024-12-22] MEDS: FAMOTIDINE 20 MG/2 ML VIAL IV SCH (20:15)
--- NOTE | 2024-12-23 02:38 | HP ---
Date of Admission: 12/22/2024 Chief Complaint: Chest pain. History Of Present Illness: This is an 84-year-old pleasant male patient who came into emergency room with complaints of chest pain. The patient says that last night when he got up to the bathroom, he had some chest pain and this pain he describes is located in the precordial region. Denies any radiation of pain. No associated symptoms like nausea, vomiting, diaphoresis. No shortness of breath. The patient says pain lasted for few hours and he is not able to describe the nature of the pain. He came into emergency room, but states after he was evaluated, he was admitted to the hospital. When I saw him, he was still in the emergency room and did not have any recurrence of the pain. Review of Systems: Cardiovascular As mentioned above. All other systems reviewed and negative. Allergies: No known allergies. Medications: List reviewed. Past Medical History: Significant for Alzheimer disease, allergic rhinitis, throat cancer, hypothyroidism, type 2 diabetes mellitus, hypertension, mixed hyperlipidemia, coronary artery disease, paroxysmal atrial fibrillation, aortic stenosis, abdominal aortic aneurysm, aortic atherosclerosis, carotid artery stenosis bilateral, gallstones, diverticulosis, kidney stone, benign prostatic hypertrophy, osteoarthritis at multiple sites, and depression. Past Surgical History: Significant for cataract surgery, tonsillectomy, coronary artery bypass surgery and had CAVAZOS to LAD in July 2018. The patient also had aortic valve replacement surgery and has a bioprosthetic aortic wall placed in July 2018. In the past, had hernia repair, cholecystectomy in March 2023, left hip surgery, right knee replacement May 07, 2022, and left knee replacement January 28, 2023. Family History: Father , had coronary artery disease. Mother , had hypertension. Brother had melanoma. Sister had stroke and hepatitis C. Social History: Prior history of smoking, not at present time. Use of alcohol negativ Physical Examination: Vital Signs: Height 5 feet 8 inches, weight 220 pounds, temperature 98, pulse 61, respiratory rate 16, blood pressure 170/95, oxygen saturation 96%. General: Awake, alert, oriented, not in distress. HEENT: Head atraumatic, normocephalic. Conjunctivae nonerythematous. Sclerae white. Mouth, no thrush or edema noted. Ears/Nose, no mass, lesion, discharge noted. Neck: Supple. No JVD, lymph nodes, bruit, thyromegaly noted. Lungs: Bilateral good equal air entry. Clear to auscultation. No rhonchi. No rales. Heart: Normal heart sounds, no murmur or gallop. Abdomen: Soft, bowel sounds normal. No guarding, rigidity, tenderness, mass, hepatosplenomegaly, distention, or bruit noted. Extremities: No leg edema. No calf tenderness. Skin: No rash, ulcer, cellulitis. Lymphatics: No lymph node enlargement in neck, supraclavicular, infraclavicular region. Neuro: No focal neurological deficit. Chest: Unremarkable. External Genitalia: Deferred. Rectal: Deferred. Laboratory Data: WBC 8.1, hemoglobin 13.1, platelets 250. Sodium 140, potassium 3.2, chloride 105, bicarb 27, BUN 17, creatinine 1.17, glucose 124. Liver function tests unremarkable. Troponin 16.9. ProBNP 3896. Lipase 40. Urinalysis, 3+ glucose, leukocyte esterase 250. Urine appearance turbid, otherwise negative. Chest x-ray, no acute cardiopulmonary changes and EKG, no acute ST-T changes. Impression: 1. Chest pain. 2. Coronary artery disease. 3. Hypertension. 4. Mixed hyperlipidemia. 5. Paroxysmal atrial fibrillation. 6. Abdominal aortic aneurysm, infrarenal. 7. Bilateral carotid artery stenosis. 8. Type 2 diabetes mellitus. 9. Hypothyroidism. 10. Alzheimer disease. 11. Diverticulosis. 12. Benign prostatic hypertrophy. 13. Depression. Plan: Admit patient to hospital for further evaluation and management of this problem. The patient will be admitted to the hospital for observation. We will get serial cardiac enzymes and consult bulldozer operator. The patient is asymptomatic at this point. For hypertension, we will go ahead and continue antihypertensive medication per order. Monitor blood pressure if necessary. Adjust medication. For hyperlipidemia, continue his statin therapy. No need for further intervention. For hypothyroidism, continue levothyroxine per order and will not require any further intervention. Diabetes, we will monitor his fingerstick blood sugar with mild sliding scale. Total time spent 60 minutes including review of last hospital admission record from 09/11/2024, review of emergency room visit record, communication with emergency room physician, and performing today's evaluation and management. I will see him tomorrow morning for followup. NIKI/MODL Voice ID: [id number]
[2024-12-23 04:58] VITALS: BMI 33.4
[2024-12-23 07:08] LABS: Absolute Lymphocytes (CBC) 1.3 K/uL (0.7-4.9); Hematocrit 38.7 % (39.6-49.0); Hemoglobin 12.9 g/dL (13.6-17.9); MCH 27.9 pg (27.0-35.0); MCHC 33.3 g/dL (32.0-36.0); MCV 83.8 fL (80-100); MPV 9.0 fL (7.6-11.3); Nucleated RBC Absolute Count 0.0 (0-0); Nucleated Red Blood Cells % 0.1 % (0-0); RBC Red Blood Cell Count 4.62 M/uL (4.33-5.43); White Blood Count 5.50 thou/uL (4.3-10.9)
[2024-12-23 07:22] LABS: Anion Gap 8.2 mEq/L (5.0-15.0); BUN Blood Urea Nitrogen 15.0 mg/dL (7-18); Glucose Level 114.0 mg/dL (74-106); Potassium 3.2 mEq/L (3.5-5.1)
[2024-12-23] MEDS: ASPIRIN EC 81 MG TAB PO SCH (08:50)
[2024-12-23 09:05] VITALS: O2SAT 96
--- NOTE | 2024-12-23 11:35 | P.CNS ---
Date of Consult: 12/23/24 Chief Complaint: chest pain History of Present Illness: Patient with PMH of CAD s/p CABG with only patent CAVAZOS-LAD, moderate LM into LCX disease, RCA [employer], presented with chest pain, lower mid chest, no radiation, can go to right side on some occasions, happen when he lay down, better when he move around. Allergies No Known Allergies Allergy (Verified 12/23/24 04:59) Home medications list reviewed: Yes Home Medications: Metformin HCl [Glucophage*] 500 mg PO BID 10/13/17 Amlodipine [Norvasc] 5 mg PO DAILY 08/31/21 Metoprolol Tartrate 50 mg PO BID 05/02/22 Duloxetine [Cymbalta *] 20 mg PO DAILY 10/03/22 Aspirin 81 mg PO DAILY 01/24/23 Furosemide [Lasix] 20 mg PO DAILY 09/01/23 Galantamine HBr [Galantamine ER] 4 mg PO BID 04/12/24 Omeprazole [Prilosec] 40 mg PO DAILY 04/12/24 Levetiracetam [Keppra Xr] 500 mg PO DAILY 04/18/24 Levothyroxine [Synthroid] 125 mcg PO [id number] 04/18/24 Rosuvastatin [Crestor*] 1 tab PO DAILY 04/18/24 - Past Medical/Surgical History Diabetic: Yes -: DM -: HTN -: A Fib -: HLD -: skin cancer -: Afib -: Throat Ca -: AR -: aortic valve replacement 8 years ago -: right knee replacement Apr 2022 -: hernia repair -: hip replacement -: valve replacement-does not remember which valve -: Cardioversion -: Heart Valve Replacement - Family History Mother Medical History: Heart disease Notes: CHF Father Medical History: Heart disease - Social History Smoking Status: Unknown if ever smoked Alcohol use: No CD- Drugs: No Caffeine use: Yes Place of Residence: Home Review of Systems 10-point ROS is otherwise unremarkable Physical Examination Temp Pulse Resp BP Pulse Ox 97.8 F 71 18 137/88 97 12/23/24 08:00 12/23/24 08:00 12/23/24 08:00 12/23/24 08:00 12/23/24 08:00 General: Alert, In no apparent distress HEENT: Atraumatic, PERRLA, Mucous membr. moist/pink, EOMI, Sclerae nonicteric Neck: Supple, 2+ carotid pulse no bruit, No LAD, Without JVD or thyroid abnormality Respiratory: Clear to auscultation bilaterally, Normal air movement Cardiovascular: Regular rate/rhythm, Normal S1 S2 Gastrointestinal: Normal bowel sounds, No tenderness Musculoskeletal: No tenderness Integumentary: No rashes Neurological: Normal gait, Normal speech, Normal tone, Normal affect Lymphatics: No axilla or inguinal lymphadenopathy - Problems (1) CAD (coronary artery disease) of artery bypass graft Current Visit: Yes Status: Acute Plan: patient with atypical chest pain, troponin negative x3, patient coronary angiogram reviewed and patient will better served with medical management. continue ASA 81 mg daily continue Lipitor 40 mg daily outpatient follow up with cardiology for cardiac PET. (2) HTN (hypertension) Current Visit: No Status: Acute Plan: continue lopressor 50 mg po BID continue to monitor (3) History of aortic valve replacement with bioprosthetic valve Current Visit: No Status: Acute Plan: outpatient follow up with cardiology for updated echo.
[2024-12-23] MEDS: POTASSIUM CL SA 10 MEQ TAB PO ONE (11:57)
[2024-12-23] MEDS: levETIRAcetam 500 MG TAB PO ONE (11:57)
[2024-12-23] MEDS: FUROSEMIDE 40 MG TABLET PO ONE (11:57)
[2024-12-23] MEDS: METOPROLOL TAR 25 MG TAB PO ONE (11:57)
[2024-12-23 12:13] VITALS: BP 133/93; TEMP 97.7
--- NOTE | 2024-12-24 02:24 | DS ---
Date of Discharge: 12/23/2024 Disposition: Discharged to go home. Physical Examination: HEENT: Unremarkable. Lungs: Clear to auscultation. Heart: Sounds normal. Abdomen: Soft. Bowel sounds normal. No guarding, rigidity, tenderness, or distention. Extremities: No leg edema. Laboratory Data: WBC 8.1, hemoglobin 13.1, platelets 250. Sodium 140, potassium 3.2, chloride 105, bicarb 27, BUN 17, creatinine 1.17, glucose 124. Liver function tests unremarkable. Troponin 16.9. ProBNP 3896. Lipase 40. Urinalysis, 3+ glucose, leukocyte esterase 250. Urine appearance turbid, otherwise negative. Chest x-ray, no acute cardiopulmonary changes and EKG, no acute ST-T changes. Discharge Diagnoses: 1. Chest pain. 2. Coronary artery disease. 3. Hypertension. 4. Mixed hyperlipidemia. 5. Paroxysmal atrial fibrillation. 6. Abdominal aortic aneurysm, infrarenal. 7. Bilateral carotid artery stenosis. 8. Type 2 diabetes mellitus. 9. Hypothyroidism. 10. Alzheimer disease. 11. Diverticulosis. 12. Benign prostatic hypertrophy. 13. Depression. Hospital Course: An 84-year-old male patient, who was admitted to the hospital after he came into emergency room with complaints of chest pain. Please see dictated H and P for more information. After the patient was evaluated in the ER, he was admitted to the hospital. His troponin remained negative and he remained asymptomatic after his admission to the hospital. This morning when I saw him, he was feeling fine. After I saw him, campaign advisor evaluated him and Dr. Lynn did call and talk to me. He did not have any other concern and he recommended for patient to go home with continuation of his medication as before and Dr. Lynn will see him on outpatient basis and he will do further cardiac testing through his office as he was suggested. The patient was discharged to go home in stable condition. Discharge medications and instructions: Continue all prior home medications. Follow up with Dr. Jones in two weeks Follow up with Dr. Lynn in one to two weeks. Total Time Spent: 25 minutes. NIKI/MODL Voice ID: [id number] Report ID: [id number] [facility]
== END 2024-12-23 14:24 | disposition home or self-care (01) ==
LOC: ER 08:58 → ERHOLD 12:38 → 2ND 16:18
PROVIDERS: ADMIT Internal Medicine; ATTEND Internal Medicine
DX: R07.9 Chest pain, unspecified (principal); I25.10 Atherosclerotic heart disease of native coronary artery without angina pectoris; G30.9 Alzheimer's disease, unspecified; F02.80 Dementia in other diseases classified elsewhere, unspecified severity, without behavioral disturbance, psychotic disturbance, mood disturbance, and anxiety; E78.2 Mixed hyperlipidemia; I48.11 Longstanding persistent atrial fibrillation; N40.0 Benign prostatic hyperplasia without lower urinary tract symptoms; M19.90 Unspecified osteoarthritis, unspecified site; I71.43 Infrarenal abdominal aortic aneurysm, without rupture; I65.23 Occlusion and stenosis of bilateral carotid arteries; K57.90 Diverticulosis of intestine, part unspecified, without perforation or abscess without bleeding; F32.A Depression, unspecified
CPT/HCPCS: 36415; 71045; 80048; 80076; 81001; 83690; 83735; 83880; 84484; 85025; 85610; 93005; 96361; 96365; 96372; 96375; 99285; J1650; J2405; J3475; J7040